=== PATIENT | male | born 1955 | race Caucasian/White ===

== ENCOUNTER 2016-08-03 10:14 | Observation (INO) ==
[2016-08-03] MEDS ORDERED: Aspirin 81 MG TAB.CHEW PO ONE (10:20)
[2016-08-03] MEDS ORDERED: *HR* HYDROmorphone (PF) 1 MG/ML SYRINGE IVP ONE ×2 (10:23→13:36)
[2016-08-03] MEDS ORDERED: Ondansetron 4 MG/2 ML VIAL IVP ONE (10:23)
[2016-08-03] MEDS ORDERED: 0.9 % Sodium Chloride 1,000 ML IVC ONE ×2 (10:25→11:14)
--- NOTE | 2016-08-03 10:35 | Emergency Department Note ---
Disposition Clinical Impression: OLEG (acute kidney injury) Chest pain Qualifiers: Chest pain type: unspecified Qualified Code(s): R07.9 - Chest pain, unspecified Pacemaker malfunction Qualifiers: Encounter type: initial encounter Qualified Code(s): T82.111A - Breakdown ( mechanical) of cardiac pulse generator (battery), initial encounter Disposition: Admitted As Inpatient Condition: Fair Chest Pain HPI - General Chief Complaint: ED Cardiac Arrest/CPR Stated Complaint: CODE Time Seen by Provider: 08/03/16 10:19 Source: patient, EMS Mode of arrival: EMS Limitations: no limitations Vital Signs Reviewed: Yes Nursing Notes Reviewed: Yes - History of Present Illness HPI Narrative: 61-year-old male with a history of coronary artery disease presents via EMS for concerns of chest pain. Note the pain started prior to arrival. Patient was found decreases muscle to his . In route EMS gave the patient nitroglycerin as well as Narcan as he does have an extensive opioid history. Patient did get some reversal with Narcan. Patient's pain is described in the center of his chest and feels like they are intermittent episodes. Possibly shocklike. Patient does have a history of a pacemaker defibrillator. Review of systems otherwise unable to be obtained due to patient's clinical status. Severity scale (1-10): 10 - Related Data Home Medications Medication Instructions Recorded Confirmed Aspirin 243 mg PO DAILY 04/08/15 08/03/16 Levothyroxine [Synthroid] 50 mcg PO QAM 04/08/15 08/03/16 Omeprazole [PriLOSEC] 40 mg PO DAILY 04/08/15 08/03/16 Pravastatin Sodium [Pravachol] 40 mg PO DAILY 04/08/15 08/03/16 Ropinirole HCl [Requip Xl] 4 mg PO HS 04/08/15 08/03/16 Promethazine [Phenergan] 25 mg PO Q6H PRN 12/03/15 08/03/16 Gabapentin [Neurontin] 300 mg PO TID 08/03/16 08/03/16 HYDROcodone/Acet 5/325 mg [Roland 1 tab PO Q6H PRN 08/03/16 08/03/16 5-325 mg] Oxycodone HCl 10 mg PO Q6H PRN 08/03/16 08/03/16 Tizanidine HCl 2 mg PO TID PRN 08/03/16 08/03/16 Allergies Allergy/AdvReac Type Severity Reaction Status Date / Time codeine Allergy Mild Itching Verified 04/08/15 09:52 Penicillins AdvReac Intermediate COMA Verified 04/08/15 09:52 nitroglycerin AdvReac Mild LOW BLOOD Verified 08/02/15 03:33 PRESSURE NITRATES Allergy Mild Itching Uncoded 04/08/15 09:52 NUBAIN Allergy Mild Itching Uncoded 08/02/15 03:33 All systems ED: reviewed and negative except as stated. Constitutional: Reports: as per HPI. Denies: fever Eyes: Reports: as per HPI ENT ED: Reports: as per HPI Cardiovascular: Reports: as per HPI, chest pain. Denies: palpitations Respiratory: Reports: as per HPI. Denies: dyspnea Gastrointestinal: Reports: as per HPI Genitourinary: Reports: as per HPI Musculoskeletal: Reports: as per HPI Integumentary: Reports: as per HPI Neurological: Reports: as per HPI Psychiatric: Reports: as per HPI Endocrine: Reports: as per HPI Hematological/Lymphatic: Reports: as per HPI Allergic/Immunologic: Reports: as per HPI Chest Pain PMH - Past Medical History Medical history: Reports: cirrhosis, CHF, coronary artery disease, CVA, diabetes , GERD, hypertension, myocardial infarction, thyroid disease, other Surgical history: Reports: appendectomy, cholecystectomy, coronary bypass (CABG) , orthopedic, other, pacemaker/AICD Psychiatric history: Reports: no psych history - Social History Smoking Status: Never smoker Alcohol use: Reports: none Drug use: Reports: none Physical Exam - General Limitations: no limitations General appearance: alert, in distress - Head Head exam: normocephalic, normal inspection - Eye Eye exam: Present: normal appearance, EOMI - ENT ENT exam: normal exam, mucous membranes moist - Neck Neck exam: Present: normal inspection, full ROM - Chest Chest inspection: Present: normal inspection, symmetric chest wall rise, other ( Probable pacemaker defibrillator.) - Respiratory Respiratory exam: Present: normal lung sounds bilaterally. Absent: respiratory distress - Cardiovascular Cardiovascular exam: Present: regular rate, normal rhythm. Absent: systolic murmur - Abdominal Exam Abdominal exam: Present: soft, Non-Tender - Extremities Exam Extremities exam: Present: normal inspection. Absent: pedal edema - Back Exam Back exam: Present: normal inspection. Absent: CVA tenderness (R), CVA tenderness (L) - Neurological Exam Neurological exam: Present: alert, oriented X3 - Skin Skin exam: Present: warm, dry, intact, normal color Course Course Narrative: Patient seen and examined upon arrival. Initial concerns for ejection. Portable chest x-ray shows no wide mediastinum. Does reveal a pacemaker defibrillator. Symptoms possibly the result of constant fibrillation. Magnet placed over the chest shows that the patient is in V. tach. Patient blood pressure is stable with a pulse. Patient's given aspirin as well as amiodarone. Paged interventional cardiology. Review of EMS strips do not show specific episodes of V. tach. His does show a paced rhythm at [address] elevation. 12-lead EKG obtained in the emergency department shows a paced rhythm with numerous artifacts. Will repeat EKG. - Reevaluation(s) Reevaluation #1: Cardiology now bedside. When the grain combiner placed the magnet over the pacemaker shows that it was perhaps ventricular pacing. Patient is feeling pain when the magnet is over the pacemaker. Recommends to get the pacemaker interrogated. Time: 12:11 - Consultations Consultation #1: Spoke with Dr. Moseley, recommended anticoagulation. EKG was sent to the padder cushion. Time: 10:58 Consultation #2: Spoke with Cardiology, who recommends that they will get the pacemaker interrogated and started on amiodarone Time: 11:03 Consultation #3: Patient's pacemaker was interrogated in the emergency department shows no acute abnormalities. The records will be sent to the grain combiner as well as accompanying the patient to the floor. Time: 15:32 Vital Signs Temperature 98.0 F 08/03/16 10:15 Pulse Rate 78 08/03/16 10:15 Respiratory Rate 20 08/03/16 10:15 Blood Pressure 106/95 08/03/16 10:15 O2 Sat by Pulse Oximetry 100 08/03/16 10:15 Temperature 98.0 F 08/03/16 10:15 Pulse Rate 50 08/03/16 14:02 Respiratory Rate 18 08/03/16 14:02 Blood Pressure 133/65 08/03/16 14:02 O2 Sat by Pulse Oximetry 100 08/03/16 14:02 Oxygen Delivery Oxygen Delivery Room Air Chest Pain - MDM Narrative Medical decision making narrative: 61-year-old male with known CAD presents for evaluation of chest pain altered mental status. Patient was found decreased responsiveness. Patient was given Narcan with reversal the EMS and is complaining of chest pain. Patient's pain appeared to be shocklike in distribution. Patient had an initial chest x-ray which appeared to have defibrillator coil in the working diagnosis the patient was getting shocked. Magnet was placed over the pacemaker and thought to be in ventricular tach. Patient was given amiodarone bolus as well as heparin with anticoagulation. Spoke with interventional cardiology suspected at the pacemaker was being ventricularly paced recommended cardiology evaluation. Cardiology bedside confirmed the rhythm was ventricular paced but states that the patient will need his ventricular interrogated the patient's pain when magnet is placed over the pacemaker. Patient's troponin was 0.02. Patient did have an elevated d-dimer and was high risk for PE given his current chest pain episode patient was given IV fluid hydration bolus prior to CTA. Risk versus benefit from contrast in kidney function given the patient's current situation was evaluated. [place] the patient was too high risk does not get a CTA scan. She will be admitted to the hospitalist service for further evaluation. - Lab Data Lab results reviewed: Yes I reviewed the patient's lab results. Result diagrams: 08/03/16 10:33 08/03/16 10:33 Lab Results 08/03/16 08/03/16 08/03/16 Range/Units 10:33 10:33 10:33 WBC 7.4 (4.3-11.1) K/mcL RBC 3.53 L (4.19-5.50) M/mcL Hgb 10.1 L (12.9-16.9) g/dL Hct 32.6 L (37.5-50.1) % MCV 92.4 (83.0-100.0) fL MCH 28.6 (28.0-33.3) pg MCHC 31.0 L (31.6-35.5) g/dL RDW 15.7 H (11.5-14.5) % Plt Count 170 (140-400) K/mcL MPV 10.5 (9.4-12.4) fL Immature Gran % 0.3 (0-4) % Seg Neutrophils % 75.9 % Lymphocytes % 16.3 % Monocytes % 6.2 % Eosinophils % 1.2 % Basophils % 0.1 % Neutrophils # 5.7 (1.6-8.9) K/mcL Lymphocytes # 1.2 (0.6-4.6) K/mcL Monocytes # 0.5 (0.0-1.3) K/mcL Eosinophils # 0.1 (0.0-0.6) K/mcL Basophils # 0.0 (0.0-0.2) K/mcL PT 12.9 H (9.4-12.1) Seconds INR 1.2 APTT 27.8 (26.0-36.0) Seconds D-Dimer 19628 H (0-500) ng/mLFEU Sodium (136-145) mEq/L Potassium (3.5-4.5) mEq/L Chloride (98-109) mEq/L Carbon Dioxide (19-29) mEq/L BUN (8-26) mg/dL Creatinine (0.72-1.25) mg/dL Est GFR ( Amer) (> 60) Est GFR (Non-Af Amer) (> 60) BUN/Creatinine Ratio (6-26) Glucose (70-99) mg/dL Calculated Osmolality (280-300) Calcium (8.6-10.8) mg/dL Troponin I (0-0.03) ng/mL B-Natriuretic Peptide 28 (0-100) pg/mL Blood Type Antibody Screen 08/03/16 08/03/16 08/03/16 Range/Units 10:33 10:33 10:33 WBC (4.3-11.1) K/mcL RBC (4.19-5.50) M/mcL Hgb (12.9-16.9) g/dL Hct (37.5-50.1) % MCV (83.0-100.0) fL MCH (28.0-33.3) pg MCHC (31.6-35.5) g/dL RDW (11.5-14.5) % Plt Count (140-400) K/mcL MPV (9.4-12.4) fL Immature Gran % (0-4) % Seg Neutrophils % % Lymphocytes % % Monocytes % % Eosinophils % % Basophils % % Neutrophils # (1.6-8.9) K/mcL Lymphocytes # (0.6-4.6) K/mcL Monocytes # (0.0-1.3) K/mcL Eosinophils # (0.0-0.6) K/mcL Basophils # (0.0-0.2) K/mcL PT (9.4-12.1) Seconds INR APTT (26.0-36.0) Seconds D-Dimer (0-500) ng/mLFEU Sodium 139 (136-145) mEq/L Potassium 4.0 (3.5-4.5) mEq/L Chloride 107 (98-109) mEq/L Carbon Dioxide 23 (19-29) mEq/L BUN 24 (8-26) mg/dL Creatinine 1.70 H (0.72-1.25) mg/dL Est GFR ( Amer) 50 L (> 60) Est GFR (Non-Af Amer) 41 L (> 60) BUN/Creatinine Ratio 14 (6-26) Glucose 178 H (70-99) mg/dL Calculated Osmolality 296 (280-300) Calcium 9.1 (8.6-10.8) mg/dL Troponin I 0.02 (0-0.03) ng/mL B-Natriuretic Peptide (0-100) pg/mL Blood Type O POSITIVE Antibody Screen POSITIVE - Radiology Data Radiology results reviewed: Yes I reviewed the patient's radiology results. - EKG Data EKG attestation: Yes I reviewed and interpreted this EKG. EKG results narrative: Atrial pacemaker at a rate of 55. Right bundle branch block with deep inverted T waves in V1 V2 V3. T-wave inversions in V1 and aVL. Slightly similar to an EKG obtained in June 2016 however new T-wave inversions in the lateral leads. Critical Care Time Critical Care Time: Yes Total Critical Care Time: 60 Attestation: Critical care time for this patient was 60 minutes for treatment and evaluation of his V. tach and firing pacemaker. S.B.A.Akilah - S.B.A.RGorge Situation: Demographics Background: Presenting Complaint, Relevant PMH, Meds, & Allergies Assessment: Vital Signs, Course and respsone to treatment, Patient/Family Expectation, Pertinant Lab Results Recommendation: Barrier(s) to disposition, Recommendation based on pending studies, treatments, or consults S.B.AAdonis Report Given to: Dr. Jose Donato Repor Time: 13:24 Attestation Statement - Attestation Attestation: Patient was seen with resident physician. I reviewed the history, physical, assessment and plan, and agree with the findings. I also personally evaluated this patient and had [id number] time with this patient. 61-year-old male presents to the emergency department after his called EMS because he was unresponsive. EMS arrived said that he was minimally responsive when they got there, and were concerned that he was having some runs of V. tach per their EKG. At one point he became unresponsive they are getting ready to defibrillate him, but then he returned to consciousness. Patient himself says he is having severe sharp chest pain seemingly on the left side of his chest. He is a very poor historian and in significant discomfort which further makes it difficult to ascertain a history. Patient does have a history of cardiac disease and stroke and he has at least a pacemaker, but the family is not sure if it is a defibrillator as well. On examination patient appears uncomfortable his heart is regular rhythm and rate his lungs are clear abdomen is soft and nontender with no pulsatile masses extremities are unremarkable with distal pulses that are intact. Based on the sharp almost continuous sensations he was getting that seemed to cause muscle twitching we thought he may have had a firing defibrillator. We did consider dissection, but when placing a magnet over defibrillator it seemed that the patient went into a wide complex tachycardia, that would be consistent with V. tach. His EKG otherwise did not show acute STEMI. We discussed with both interventional cardiology and cardiology, they advised use of amiodarone aspirin, heparin, and pacemaker interrogation. Once these are all completely patient will have a disposition. Additionally we will continue to work on patient's pain control. Patient will be admitted to the hospital for further evaluation and treatment upon completion of workup. Agree with resident physician assessment and plan.
[2016-08-03] MEDS ORDERED: Amiodarone 300 MG in D5% in Water 100 ML IVPB ONE (10:36)
[2016-08-03 10:42] LABS: Basophils % 0.1 %; Eosinophils # 0.1 K/mcL (0.0-0.6); Eosinophils % 1.2 %; Hematocrit 32.6 % (37.5-50.1); Hemoglobin 10.1 g/dL (12.9-16.9); Immature Granulocytes % 0.3 % (0-4); Lymphocytes # 1.2 K/mcL (0.6-4.6); Lymphocytes % 16.3 %; Mean Corpuscular Hemoglobin 28.6 pg (28.0-33.3); Mean Corpuscular Volume 92.4 fL (83.0-100.0); Mean Platelet Volume 10.5 fL (9.4-12.4); Monocytes # 0.5 K/mcL (0.0-1.3); Monocytes % 6.2 %; Neutrophils # 5.7 K/mcL (1.6-8.9); Platelet Count 170 K/mcL (140-400); Red Blood Count 3.53 M/mcL (4.19-5.50); Red Cell Distribution Width 15.7 % (11.5-14.5); Segmented Neutrophils % 75.9 %
[2016-08-03 10:49] LABS: INR 1.2; Prothrombin Time 12.9 Seconds (9.4-12.1)
[2016-08-03 10:51] LABS: Activated Partial Thrombo Time 27.8 Seconds (26.0-36.0)
[2016-08-03 10:55] LABS: Calcium 9.1 mg/dL (8.6-10.8)
[2016-08-03] MEDS ORDERED: *HR* Heparin 5,000 UNIT/ML VIAL IVP ONE (10:57)
[2016-08-03] MEDS: Heparin 25,000 UNIT/500 ML D5W 25,000 UNIT/500 ML MLS IVC SCH (11:09)
--- NOTE | 2016-08-03 12:58 | Cardiology Consult Note ---
Date of Encounter: 08/03/16 Time of Encounter: 12:51 Assessment and Plan (1) Chest pain Current Visit: Yes Status: Acute ? PPM malfunction - RV lead microfracture. Demonstrated reproducible of possible pocket stimulation while at bedside. no sxs with RA pacing alone [facility] has been contacted for device check today. No obvious fracture on CXR Serial enzymes and usual R/O PA type care CT of the chest is reassuring. Qualifiers: Chest pain type: unspecified Qualified Code(s): R07.9 - Chest pain, unspecified (2) Acute renal injury Current Visit: No Status: Acute Suspect volume depletion related to poor PO intake for hte past few days. This is probably source of syncope this morning. Fluids encouraged. Trend renal function (3) CAD (coronary artery disease) of bypass graft Current Visit: No Status: Chronic Chest pain work up as above. Seems to have chronic sxs. Stress test < 1 year ago negative for ischemia. Unless signifiacnt increase in Troponin - no additional procedures planned. Qualifiers: [place] vs. transplanted heart: [place] heart Associated angina: with unspecified angina Qualified Code(s): I25.709 - Atherosclerosis of coronary artery bypass graft(s), unspecified, with unspecified angina pectoris (4) Hypertension Current Visit: No Status: Chronic Briefly hypotensive earlier today improved when I was at bedside. - ? volume depletion. Qualifiers: Hypertension type: essential hypertension Qualified Code(s): I10 - Essential (primary) hypertension Discussion w patient/family: The assessment and plan as outlined above was discussed with the patient and/or family members who expressed understanding and agreement. All questions were answered. Thank you for involving us in the care of your patient. Please call with any questions. History of Present Illness Consult date: 08/03/16 Consult reason: chest pain, ? PPM malfunction Chief complaint: syncope, chest pain History of present illness: Mr. Grewal is a 61 year old male known CAD, s/p CABG, s/p [facility] Dual Chamber PPM, presents to the ER from home. Reports recent development of an anterior left upper chest pain, sharp, shocking type pain, occurring intermittently for at least a few days. Reports that he is having a similar pain in his leg - where he has recent surgery. He is uncertain if this is similar to his previous CV pain - he thinks it might be. He did have an episode of syncope - while eating breakfast this morning. Reportedly became unconscious at the table -without clear warning - which prompted his ER trip this morning. Other than chronic pain ,a nd missing a few doses of his pain meds, family has noticed decreased appetite and overall poor PO intake in the past several days. In the ER - ?? possible PPM malfunciton prompted urgent consultation. ? VT while magnet in place by the ER staff. _ NO strips. I repeated this manuever - which showed proper AV pacing - however - within 5 beats , the patient mentioned sharp, electrical shooting pain in his left upper chest - identical to what he mentioned at arrival. Sxs resolved immediately with removal of the magnet. Past Med Surg Social Fam HX - Past Medical History Source: patient, old records reviewed, obtained from family Medical history: cirrhosis, CHF, coronary artery disease, CVA, diabetes, GERD, hypertension, myocardial infarction, thyroid disease, other Psychiatric history: no psych history - Past Surgical History Surgical History: appendectomy, cholecystectomy, coronary bypass (CABG), orthopedic, other, pacemaker/AICD - Social History Smoking Status: Never smoker Smokeless Tobacco Status: No Alcohol use: none Drug use: none - Family History Mother Hx Family Cardiac Disorders: Yes (heart problems) Medications and Allergies Aspirin 162 mg PO DAILY 04/08/15 [History] Levothyroxine [Synthroid] 50 mcg PO QAM 04/08/15 [History] Magnesium Oxide [Magnesium] 400 mg PO DAILY 04/08/15 [History] Omeprazole [PriLOSEC] 40 mg PO DAILY 04/08/15 [History] Oxycodone HCl [Roxicodone 30 MG Immed Release] 30 mg PO Q6HR 04/08/15 [History] Pravastatin Sodium [Pravachol] 40 mg PO DAILY 04/08/15 [History] Ropinirole HCl [Requip Xl] 4 mg PO HS 04/08/15 [History] Fluticasone Propionate Nasal [Flonase] 50 mcg NS BID 12/03/15 [History] Promethazine [Phenergan] 25 mg PO Q6H PRN 12/03/15 [History] Allergies codeine Allergy (Mild, Verified 04/08/15 09:52) Itching Penicillins Adverse Reaction (Intermediate, Verified 04/08/15 09:52) COMA nitroglycerin Adverse Reaction (Mild, Verified 08/02/15 03:33) LOW BLOOD PRESSURE pt states his blood pressure drops to fast and nitro makes him pass out. NITRATES Allergy (Mild, Uncoded 04/08/15 09:52) Itching NUBAIN Allergy (Mild, Uncoded 08/02/15 03:33) Itching pt states he had a bad instant reaction. All Systems Review: A 10-system review of systems was performed and is negative for pertinent findings except as documented above in the HPI. Review of Systems: As detailed below - unless indicated all other reviews were negative - Constitutional Constitutional: fatigue, no fever(s), no frequent falls - EENT Nose, mouth and throat: no throat swelling - Cardiovascular Cardiovascular: chest pain at rest, syncope, no radiating jaw, neck or arm pain - Respiratory Respiratory: no dyspnea, no wheezing - Gastrointestinal Gastrointestinal: other (Poor PO intake), no abdominal pain - Genitourinary Genitourinary: no dysuria, no hematuria - Integumentary Integumentary: no erythema, no rash - Neurological Neurological: dizziness, syncope Physical Examination Vital Signs, Last 4 Hours Temp Pulse Resp BP Pulse Ox 08/03/16 12:31 50 18 96/62 99 08/03/16 11:52 49 18 91/67 99 08/03/16 11:38 49 18 92/48 99 08/03/16 10:40 62 20 112/89 98 08/03/16 10:25 100 08/03/16 10:15 98.0 F 78 20 106/95 100 General: Conversant HEENT: Atraumatic, Normocephaly Neck: No JVD Cardiac: Reg Rate and Rhythm, Normal S1 and S2, Other (Pacemaker site in left upper chest - WNL - no tenderness of sensations with palpation) Lungs: Normal Breath Sounds, No Wheeze, Rales, Rhonchi Neuro: Alert and responsive, No focal deficits noted Abdomen: Soft, Non-Tender Skin: No rashes noted on visualized skin Musculoskeletal: No Chest Wall Tenderness Extremities: No Clubbing, No Edema Results 08/03/16 10:33 08/03/16 10:33 Lab Results 08/03/16 08/03/16 08/03/16 10:33 10:33 10:33 WBC 7.4 Hgb 10.1 L Hct 32.6 L Plt Count 170 INR 1.2 APTT 27.8 D-Dimer 01177 H Sodium Potassium Chloride Carbon Dioxide BUN Creatinine Glucose Calcium Troponin I B-Natriuretic Peptide 28 08/03/16 08/03/16 10:33 10:33 WBC Hgb Hct Plt Count INR APTT D-Dimer Sodium 139 Potassium 4.0 Chloride 107 Carbon Dioxide 23 BUN 24 Creatinine 1.70 H Glucose 178 H Calcium 9.1 Troponin I 0.02 B-Natriuretic Peptide - Imaging and Cardiology Chest Xray: image reviewed - EKG Interpretation EKG results cardiology: personally reviewed (A - paced - RBBB -Non-specific changes.) Consult Discharge Plan - Plan Referrals: NO,PCP [Non-Partnered Physician] -
[2016-08-03] MEDS ORDERED: Naloxone 0.4 MG/ML INJ IVP PRN (15:08)
[2016-08-03] MEDS ORDERED: Acetaminophen 325 MG TABLET PO PRN (15:08)
--- NOTE | 2016-08-03 15:10 | Internal Med History&Physical ---
Date of Encounter: 08/03/16 Time of Encounter: 15:08 Assessment and Plan (1) Syncope Current visit: Yes Status: Acute Qualifiers: Syncope type: unspecified Qualified Code(s): R55 - Syncope and collapse (2) OLEG (acute kidney injury) Current visit: Yes Status: Acute (3) Chest pain Current visit: Yes Status: Acute Qualifiers: Chest pain type: unspecified Qualified Code(s): R07.9 - Chest pain, unspecified (4) Pacemaker malfunction Current visit: Yes Status: Acute Qualifiers: Encounter type: initial encounter Qualified Code(s): T82.111A - Breakdown ( mechanical) of cardiac pulse generator (battery), initial encounter (5) CAD (coronary artery disease) of bypass graft Current visit: Yes Status: Chronic Qualifiers: [place] vs. transplanted heart: [place] heart Associated angina: with unspecified angina Qualified Code(s): I25.709 - Atherosclerosis of coronary artery bypass graft(s), unspecified, with unspecified angina pectoris (6) Cirrhosis Current visit: Yes Status: Chronic Qualifiers: Hepatic cirrhosis type: unspecified hepatic cirrhosis Ascites presence: without ascites Qualified Code(s): K74.60 - Unspecified cirrhosis of liver (7) Diabetes mellitus Current visit: Yes Status: Chronic Qualifiers: Diabetes mellitus type: type 2 Diabetes mellitus complication status: without complication Diabetes mellitus buttermaker continuous churn insulin use: unspecified buttermaker continuous churn insulin use status Qualified Code(s): E11.9 - Type 2 diabetes mellitus without complications (8) Hyperlipemia Current visit: Yes Status: Chronic Qualifiers: Hyperlipidemia type: unspecified Qualified Code(s): E78.5 - Hyperlipidemia , unspecified (9) Hypertension Current visit: Yes Status: Chronic Qualifiers: Hypertension type: essential hypertension Qualified Code(s): I10 - Essential (primary) hypertension (10) Hypothyroid Current visit: Yes Status: Chronic Qualifiers: Hypothyroidism type: unspecified Qualified Code(s): E03.9 - Hypothyroidism , unspecified Internal Medicine - H&P: HPI Chief complaint: Syncope Admitted From: Home Plans for Post Hospital Care: Home History of present illness: Mr. Grewal is a 61 year old male Seen at bedside with and daughter at the bedside Hx obtained from all parties and corrolated with EMR Patient was in his usual state of health till this morning when he syncopized at the table during breakfast, per his , he passed out completely, no head injury, he became unresponsive and she called EMS Per EMS chart, patient was found unresponsive and bradycardic, FS was >40 and HR was 49, BP was WNL. Patient said to have woken up and started complaining of severe chest pain . He denies nausea, vomiting, diaphoresis or shortness of breath. His and daughter endorse he is basically bed bound since his hip replacement surgery in 06/2016 because he is always complaining of pain he had no physical therapy beacuse his pain was uncontrolled. he has also had poor oral intake since then. He however typically drinks a lot of water He denies change in bowel or urinary habits, denies diarrhea or constipation. No recent falls he has a PMH of Hypothyroidism, HLD, CAD s/p PCM, Liver cirrhosis, GERD In the ER, he was found to have Vtach when a magnet was placed on his PCM, this was not reproducible when cardiology repeated the same procedure. He however reported chest pain at both times He has been started on heparin drip for possible ACS Physical Exam VSS, not in distress, speaks full sentences HEENT: Moist oral mucosa, ASHLEY, not cyanotic, no sclera icterus, conjuctiva is not pale Chest is clear. PCM pocket on chest wall, no tenderness, pacer pad, scar+ Heart: S1, S2, bradycardia Abdomen: Multiple scars, vague RUQ tenderness Extremities: No edema Labs and Imaging has been reviewed Cardiology has seen him, we will follow their recommendations Continue ACS protocol, ASA, Lipitor, BB, Monitor PTT PCM interrogation a.m Keep pacer pad on Resume other home meds He also has OLEG and will get IVF hydration, obtain UA, check mag and Phos, check TSH , continuos cardiac monitoring, Patient is DNR/DNI plan of care discussed with patient and family verbalizes understanding Past Med Surg Social Fam HX - Past Medical History Medical history: cirrhosis, CHF, coronary artery disease, CVA, diabetes, GERD, hypertension, myocardial infarction, thyroid disease, other Psychiatric history: no psych history - Past Surgical History Surgical History: appendectomy, cholecystectomy, coronary bypass (CABG), orthopedic, other, pacemaker/AICD - Social History Smoking Status: Never smoker Smokeless Tobacco Status: No Alcohol use: none Drug use: none - Family History Mother Hx Family Cardiac Disorders: Yes (heart problems) Internal Medicine - H&P: Meds Aspirin 243 mg PO DAILY 04/08/15 [History] Levothyroxine [Synthroid] 50 mcg PO QAM 04/08/15 [History] Omeprazole [PriLOSEC] 40 mg PO DAILY 04/08/15 [History] Pravastatin Sodium [Pravachol] 40 mg PO DAILY 04/08/15 [History] Ropinirole HCl [Requip Xl] 4 mg PO HS 04/08/15 [History] Promethazine [Phenergan] 25 mg PO Q6H PRN 12/03/15 [History] Gabapentin [Neurontin] 300 mg PO TID 08/03/16 [History] HYDROcodone/Acet 5/325 mg [Secretary 5-325 mg] 1 tab PO Q6H PRN 08/03/16 [History] Oxycodone HCl 10 mg PO Q6H PRN 08/03/16 [History] Tizanidine HCl 2 mg PO TID PRN 08/03/16 [History] Allergies codeine Allergy (Mild, Verified 04/08/15 09:52) Itching Penicillins Adverse Reaction (Intermediate, Verified 04/08/15 09:52) COMA nitroglycerin Adverse Reaction (Mild, Verified 08/02/15 03:33) LOW BLOOD PRESSURE pt states his blood pressure drops to fast and nitro makes him pass out. NITRATES Allergy (Mild, Uncoded 04/08/15 09:52) Itching NUBAIN Allergy (Mild, Uncoded 08/02/15 03:33) Itching pt states he had a bad instant reaction. All Systems PM: A 10-system review of systems was performed and is negative for pertinent findings except as documented above in the HPI. - Constitutional Constitutional: as per HPI - EENT Eyes: as per HPI Ears: as per HPI Nose, mouth and throat: as per HPI - Breasts Breasts: as per HPI - Cardiovascular Cardiovascular ROS IM: as per HPI - Respiratory Respiratory: as per HPI - Gastrointestinal Gastrointestinal: as per HPI - Musculoskeletal Musculoskeletal ROS IM: as per HPI - Integumentary Integumentary IM: as per HPI - Neurological Neurological ROS: as per HPI - Endocrine Endocrine IM: as per HPI - Constitutional Vitals: Temp Pulse Resp BP Pulse Ox 98.0 F 50 18 133/65 100 08/03/16 10:15 08/03/16 14:02 08/03/16 14:02 08/03/16 14:02 08/03/16 14:02 Internal Med - H&P Results - Labs CBC & Chem 7: 08/03/16 10:33 08/03/16 10:33
[2016-08-03] MEDS: 0.9 % Sodium Chloride 1,000 ML IVC SCH (15:59)
[2016-08-03 16:24] LABS: Magnesium 1.8 mg/dL (1.6-2.6); Phosphorous 4.8 mg/dL (2.3-4.7)
[2016-08-03] MEDS: *HR* HYDROcodone/Acet 5/325 mg TABLET PO PRN (17:47)
[2016-08-03] MEDS: Ondansetron 4 MG/2 ML VIAL IVP PRN (17:59)
[2016-08-03] MEDS: *HR* HYDROmorphone (PF) 1 MG/ML SYRINGE IVP PRN (20:25)
[2016-08-03] MEDS: Gabapentin 300 MG CAPSULE PO SCH (20:25)
[2016-08-03] MEDS: rOPINIRole 1 MG, rOPINIRole 3 MG PO SCH (20:30)
[2016-08-03] MEDS ORDERED: NON-FORMULARY MEDICATION 1 EACH EACH (Ropinirole Hcl [Requip Xl] 4 MG) PO SCH (21:00)
[2016-08-04] MEDS: *HR* HYDROcodone/Acet 5/325 mg TABLET PO PRN ×5 (00:17→20:24)
[2016-08-04] MEDS: *HR* HYDROmorphone (PF) 1 MG/ML SYRINGE IVP PRN ×5 (00:17→22:04)
[2016-08-04 00:50] LABS: Basophils % 0.2 %; Eosinophils # 0.1 K/mcL (0.0-0.6); Eosinophils % 1.7 %; Hematocrit 26.9 % (37.5-50.1); Immature Granulocytes % 0.4 % (0-4); Lymphocytes # 1.3 K/mcL (0.6-4.6); Lymphocytes % 25.4 %; Mean Corpuscular HGB Conc 30.5 g/dL (31.6-35.5); Mean Corpuscular Hemoglobin 28.7 pg (28.0-33.3); Mean Corpuscular Volume 94.1 fL (83.0-100.0); Mean Platelet Volume 10.8 fL (9.4-12.4); Monocytes # 0.4 K/mcL (0.0-1.3); Monocytes % 7.2 %; Neutrophils # 3.4 K/mcL (1.6-8.9); Platelet Count 106 K/mcL (140-400); Red Blood Count 2.86 M/mcL (4.19-5.50); Red Cell Distribution Width 15.9 % (11.5-14.5); Segmented Neutrophils % 65.1 %
[2016-08-04 01:02] LABS: Calcium 8.2 mg/dL (8.6-10.8); Magnesium 1.7 mg/dL (1.6-2.6); Phosphorous 4.1 mg/dL (2.3-4.7); Potassium 4.6 mEq/L (3.5-4.5)
[2016-08-04 01:08] LABS: Hemoglobin 8.2 g/dL (12.9-16.9)
[2016-08-04 01:39] LABS: Thyroid Stimulating Hormone 3.396 mcIU/mL (0.350-4.840)
[2016-08-04 01:46] LABS: Amphetamine Screen,Urine Negative ng/mL (Cutoff=1000); Barbiturate Screen,Urine Negative ng/mL (Cutoff=200); Benzodiazepines Screen,Urine Negative ng/mL (Cutoff=200); Cannabinoid Screen,Urine Negative ng/mL (Cutoff = 50); Cocaine Screen,Urine Negative ng/mL (Cutoff= 300); Opiate Screen,Urine Positive ng/mL (Cutoff=300); Phencyclidine Screen,Urine Negative ng/mL (Cutoff=25)
[2016-08-04] MEDS: 0.9 % Sodium Chloride 1,000 ML IVC SCH ×2 (04:15→15:42)
[2016-08-04] MEDS: Aspirin 81 MG TAB.CHEW PO SCH (08:29)
[2016-08-04] MEDS: Gabapentin 300 MG CAPSULE PO SCH ×3 (08:29→20:24)
[2016-08-04 08:43] LABS: Bilirubin,Urine Negative (Negative); Blood,Urine Negative (Negative); Clarity,Urine Clear (Clear); Color,Urine Yellow (Yellow); Glucose,Urine (UA) Normal (Normal); Ketones,Urine Negative (Negative); Leukocyte Esterase,Urine Negative (Negative); Nitrite,Urine Negative (Negative); Protein,Urine Negative (Neg-Trace); Specific Gravity,Urine > 1.030 (1.010-1.025); Urobilinogen,Urine Normal (Normal)
--- NOTE | 2016-08-04 10:14 | Internal Med Progress Note ---
Date of Encounter: 08/04/16 Time of Encounter: 09:00 - Assessment and plan (1) Syncope Current Visit: Yes Status: Acute Assessment and plan: possible vaso vagal pacemaker was interrogated and is working fine , will check orthostatics Qualifiers: Syncope type: unspecified Qualified Code(s): R55 - Syncope and collapse (2) D-dimer, elevated Current Visit: Yes Status: Acute Assessment and plan: CTA negative for PEwill do US of lower extremities if negative stop heparin drip (3) Cirrhosis Current Visit: Yes Status: Chronic Assessment and plan: check ammonia level , follow LFTS, due to hepatitis C Qualifiers: Hepatic cirrhosis type: unspecified hepatic cirrhosis Ascites presence: without ascites Qualified Code(s): K74.60 - Unspecified cirrhosis of liver (4) Anemia Current Visit: Yes Status: Chronic Assessment and plan: possible due to Chronic liver disease check stool studies r/o GI bleeding check reticulocyte count and iron studies Qualifiers: Other causes of anemia: other cause, not classified Qualified Code(s): D64.89 - Other specified anemias - Subjective Interval history: pt denies chest pain or SOB - Constitutional Vitals: Temp Pulse Resp BP Pulse Ox 98.2 F 75 16 147/77 98 08/04/16 07:36 08/04/16 07:48 08/04/16 07:36 08/04/16 07:36 08/04/16 07:36 General appearance: Present: A&O X 3 - Respiratory Respiratory exam: Present: decreased breath sounds - Cardiovascular Cardiovascular exam: Present: bradycardia, +S1, +S2 (DAVE 2/6 in RUSB) - GI/Abdominal GI/Abdominal exam: Present: normal bowel sounds, soft - Extremities Exam Extremities exam: Present: warm, radial pulses palpable and symetrical Internal Medicine: Result - Labs CBC & Chem 7: 08/04/16 00:41 08/04/16 00:41 Labs: Short CBC 08/04/16 Range/Units 00:41 WBC 5.3 (4.3-11.1) K/mcL Hgb 8.2 L D (12.9-16.9) g/dL Hct 26.9 L (37.5-50.1) % Plt Count 106 L (140-400) K/mcL Neutrophils # 3.4 (1.6-8.9) K/mcL BMP 08/04/16 00:41 Sodium 137 Potassium 4.6 H Chloride 110 H Carbon Dioxide 20 BUN 28 H Creatinine 1.80 H Glucose 127 H Calcium 8.2 L Cardiac Enzymes 08/03/16 08/03/16 Range/Units 16:05 20:36 Troponin I 0.00 0.00 (0-0.03) ng/mL Urine 08/04/16 Range/Units 01:20 Urine Color Yellow (Yellow) Urine Clarity Clear (Clear) Urine pH 6.0 (5.0-8.0) pH Units Ur Specific [place] > 1.030 H (1.010-1.025) Urine Protein Negative (Neg-Trace) mg/dL Urine Glucose (UA) Normal (Normal) mg/dL - ABG Interpretation ABG results: PT/INR, D-dimer PT 12.9 Seconds (9.4-12.1) H 08/03/16 10:33 D-Dimer 64919 ng/mLFEU (0-500) H 08/03/16 10:33 Consult Discharge Plan - Plan Referrals: Niko Knight MD [Primary Care Provider] -
[2016-08-04 11:39] LABS: % Iron Saturation 12 % (20-55); Iron 37 mcg/dL (65-175); Transferrin 221 mg/dL (174-364)
[2016-08-04 11:47] LABS: Bilirubin,Urine Negative (Negative); Blood,Urine Negative (Negative); Clarity,Urine Clear (Clear); Color,Urine Yellow (Yellow); Glucose,Urine (UA) Normal (Normal); Ketones,Urine Negative (Negative); Leukocyte Esterase,Urine Negative (Negative); Nitrite,Urine Negative (Negative); Protein,Urine Negative (Neg-Trace); Specific Gravity,Urine 1.013 (1.010-1.025); Urobilinogen,Urine Normal (Normal)
--- NOTE | 2016-08-04 12:20 | Cardiology Progress Note ---
Date of Encounter: 08/04/16 Time of Encounter: 12:19 Assessment and Plan (1) Pacemaker malfunction Current Visit: Yes Status: Ruled-out Ruled out. Device interrogation this AM revealed no significant findings that would explain symptoms of syncope or device malfunction. Settings were adjusted by rep. 12 hour tele AVG HR 74 with no significant findings or arrhythmias. No further testing necessary. Cardiology signing off. Reconsult PRN. Follow-up as outpt with Dr. Lizzy Joshi and with outpt device clinic as planned. Qualifiers: Encounter type: initial encounter Qualified Code(s): T82.111A - Breakdown ( mechanical) of cardiac pulse generator (battery), initial encounter (2) Syncope Current Visit: Yes Status: Acute PPM does not show any events or arrhythmias to explain. Stress test 11/2015 negative for ischemia or infarct. Echo 03/2015 EF 60% normal structure and function. Recommend checking orthostatics. Qualifiers: Syncope type: unspecified Qualified Code(s): R55 - Syncope and collapse (3) CAD (coronary artery disease) of bypass graft Current Visit: Yes Status: Chronic Hx of CABG. Continue ASA, Statin. Has not been on BB since PPM insertion. Negative stress test 11/2015. Qualifiers: [place] vs. transplanted heart: [place] heart Associated angina: with unspecified angina Qualified Code(s): I25.709 - Atherosclerosis of coronary artery bypass graft(s), unspecified, with unspecified angina pectoris (4) Chest pain Current Visit: Yes Status: Chronic Longstanding chronic pain issues. Suspect noncardiac in nature. Symptoms atypical. Negative stress test 11/2015. Troponins negative x 3. No further work-up necessary. Qualifiers: Chest pain type: unspecified Qualified Code(s): R07.9 - Chest pain, unspecified (5) Anemia Current Visit: Yes Status: Acute HGB drop from 10.1 yesterday to 8.2 today. Management/work-up per primary team as indicated. Qualifiers: Anemia type: other cause Other causes of anemia: other cause, not classified Qualified Code(s): D64.89 - Other specified anemias Discussion w patient/family: The assessment and plan as outlined above was discussed with the patient and/or family members who expressed understanding and agreement. All questions were answered. Thank you for involving us in the care of your patient. Please call with any questions. I will discuss all the above with Dr. Brasher and make changes as necessary. Subjective Principal diagnosis: Chest thumping Interval history: Device interrogated this AM with no significant findings to explain symptoms. tele reviewed AVG HR 74 with no significant pauses or arrhythmias. HGB drop from 10.1 to 8.2--denies any obvious bleeding. Objective Vital Signs, Last 4 Hours Temp Pulse Resp Pulse Ox 08/04/16 12:13 86 08/04/16 11:51 99.0 F 82 18 98 General: Conversant, No Apparent Distress HEENT: Atraumatic, Normocephaly, Mucus Membranes Moist Neck: No JVD, Normal carotid pulses Cardiac: Reg Rate and Rhythm, Normal S1 and S2, No Murmur Lungs: Normal Breath Sounds, No Wheeze, Rales, Rhonchi Neuro: Alert and responsive, No focal deficits noted Abdomen: Soft, Non-Tender Skin: No rashes noted on visualized skin Musculoskeletal: No Chest Wall Tenderness Extremities: No Clubbing, No Cyanosis, No Edema, Normal Pulses Results 08/04/16 00:41 08/04/16 00:41 Lab Results 08/03/16 08/03/16 08/03/16 15:57 16:05 16:05 WBC RBC Hgb Hct MCV MCH MCHC RDW Plt Count MPV Immature Gran % Seg Neutrophils % Lymphocytes % Monocytes % Eosinophils % Basophils % Neutrophils # Lymphocytes # Monocytes # Eosinophils # Basophils # APTT Sodium Potassium Chloride Carbon Dioxide BUN Creatinine Est GFR ( Amer) Est GFR (Non-Af Amer) BUN/Creatinine Ratio Glucose POC Glucose 129 H Calculated Osmolality Calcium Phosphorus 4.8 H Magnesium 1.8 Iron % Saturation Transferrin Troponin I 0.00 TSH Urine Color Urine Clarity Urine pH Ur Specific [place] Urine Protein Urine Glucose (UA) Urine Ketones Urine Blood Urine Nitrite Urine Bilirubin Urine Urobilinogen Ur Leukocyte Esterase Ur Culture Indicated? Urine Opiates Screen Ur Barbiturates Screen Ur Phencyclidine Scrn Ur Amphetamines Screen U Benzodiazepines Scrn Urine Cocaine Screen U Marijuana (THC) Screen 08/03/16 08/03/16 08/03/16 17:21 19:42 20:36 WBC RBC Hgb Hct MCV MCH MCHC RDW Plt Count MPV Immature Gran % Seg Neutrophils % Lymphocytes % Monocytes % Eosinophils % Basophils % Neutrophils # Lymphocytes # Monocytes # Eosinophils # Basophils # APTT 100.0 H D Sodium Potassium Chloride Carbon Dioxide BUN Creatinine Est GFR ( Amer) Est GFR (Non-Af Amer) BUN/Creatinine Ratio Glucose POC Glucose 133 H Calculated Osmolality Calcium Phosphorus Magnesium Iron % Saturation Transferrin Troponin I 0.00 TSH Urine Color Urine Clarity Urine pH Ur Specific [place] Urine Protein Urine Glucose (UA) Urine Ketones Urine Blood Urine Nitrite Urine Bilirubin Urine Urobilinogen Ur Leukocyte Esterase Ur Culture Indicated? Urine Opiates Screen Ur Barbiturates Screen Ur Phencyclidine Scrn Ur Amphetamines Screen U Benzodiazepines Scrn Urine Cocaine Screen U Marijuana (THC) Screen 08/04/16 08/04/16 08/04/16 00:41 00:41 00:41 WBC 5.3 RBC 2.86 L Hgb 8.2 L D Hct 26.9 L MCV 94.1 MCH 28.7 MCHC 30.5 L RDW 15.9 H Plt Count 106 L MPV 10.8 Immature Gran % 0.4 Seg Neutrophils % 65.1 Lymphocytes % 25.4 Monocytes % 7.2 Eosinophils % 1.7 Basophils % 0.2 Neutrophils # 3.4 Lymphocytes # 1.3 Monocytes # 0.4 Eosinophils # 0.1 Basophils # 0.0 APTT 74.1 H Sodium 137 Potassium 4.6 H Chloride 110 H Carbon Dioxide 20 BUN 28 H Creatinine 1.80 H Est GFR ( Amer) 47 L Est GFR (Non-Af Amer) 38 L BUN/Creatinine Ratio 16 Glucose 127 H POC Glucose Calculated Osmolality 291 Calcium 8.2 L Phosphorus 4.1 Magnesium 1.7 Iron % Saturation Transferrin Troponin I TSH 3.396 Urine Color Urine Clarity Urine pH Ur Specific [place] Urine Protein Urine Glucose (UA) Urine Ketones Urine Blood Urine Nitrite Urine Bilirubin Urine Urobilinogen Ur Leukocyte Esterase Ur Culture Indicated? Urine Opiates Screen Ur Barbiturates Screen Ur Phencyclidine Scrn Ur Amphetamines Screen U Benzodiazepines Scrn Urine Cocaine Screen U Marijuana (THC) Screen 08/04/16 08/04/16 08/04/16 01:20 01:20 05:23 WBC RBC Hgb Hct MCV MCH MCHC RDW Plt Count MPV Immature Gran % Seg Neutrophils % Lymphocytes % Monocytes % Eosinophils % Basophils % Neutrophils # Lymphocytes # Monocytes # Eosinophils # Basophils # APTT 66.0 H Sodium Potassium Chloride Carbon Dioxide BUN Creatinine Est GFR ( Amer) Est GFR (Non-Af Amer) BUN/Creatinine Ratio Glucose POC Glucose Calculated Osmolality Calcium Phosphorus Magnesium Iron % Saturation Transferrin Troponin I TSH Urine Color Yellow Urine Clarity Clear Urine pH 6.0 Ur Specific [place] > 1.030 H Urine Protein Negative Urine Glucose (UA) Normal Urine Ketones Negative Urine Blood Negative Urine Nitrite Negative Urine Bilirubin Negative Urine Urobilinogen Normal Ur Leukocyte Esterase Negative Ur Culture Indicated? Urine Opiates Screen Positive H Ur Barbiturates Screen Negative Ur Phencyclidine Scrn Negative Ur Amphetamines Screen Negative U Benzodiazepines Scrn Negative Urine Cocaine Screen Negative U Marijuana (THC) Screen Negative 08/04/16 08/04/16 08/04/16 07:37 10:59 11:30 WBC RBC Hgb Hct MCV MCH MCHC RDW Plt Count MPV Immature Gran % Seg Neutrophils % Lymphocytes % Monocytes % Eosinophils % Basophils % Neutrophils # Lymphocytes # Monocytes # Eosinophils # Basophils # APTT Sodium Potassium Chloride Carbon Dioxide BUN Creatinine Est GFR ( Amer) Est GFR (Non-Af Amer) BUN/Creatinine Ratio Glucose POC Glucose 146 H Calculated Osmolality Calcium Phosphorus Magnesium Iron 37 L % Saturation 12 L Transferrin 221 Troponin I TSH Urine Color Yellow Urine Clarity Clear Urine pH 6.0 Ur Specific [place] 1.013 Urine Protein Negative Urine Glucose (UA) Normal Urine Ketones Negative Urine Blood Negative Urine Nitrite Negative Urine Bilirubin Negative Urine Urobilinogen Normal Ur Leukocyte Esterase Negative Ur Culture Indicated? NO Urine Opiates Screen Ur Barbiturates Screen Ur Phencyclidine Scrn Ur Amphetamines Screen U Benzodiazepines Scrn Urine Cocaine Screen U Marijuana (THC) Screen 08/04/16 11:51 WBC RBC Hgb Hct MCV MCH MCHC RDW Plt Count MPV Immature Gran % Seg Neutrophils % Lymphocytes % Monocytes % Eosinophils % Basophils % Neutrophils # Lymphocytes # Monocytes # Eosinophils # Basophils # APTT Sodium Potassium Chloride Carbon Dioxide BUN Creatinine Est GFR ( Amer) Est GFR (Non-Af Amer) BUN/Creatinine Ratio Glucose POC Glucose 109 H Calculated Osmolality Calcium Phosphorus Magnesium Iron % Saturation Transferrin Troponin I TSH Urine Color Urine Clarity Urine pH Ur Specific [place] Urine Protein Urine Glucose (UA) Urine Ketones Urine Blood Urine Nitrite Urine Bilirubin Urine Urobilinogen Ur Leukocyte Esterase Ur Culture Indicated? Urine Opiates Screen Ur Barbiturates Screen Ur Phencyclidine Scrn Ur Amphetamines Screen U Benzodiazepines Scrn Urine Cocaine Screen U Marijuana (THC) Screen Short CBC 08/04/16 Range/Units 00:41 WBC 5.3 (4.3-11.1) K/mcL Hgb 8.2 L D (12.9-16.9) g/dL Hct 26.9 L (37.5-50.1) % Plt Count 106 L (140-400) K/mcL Neutrophils # 3.4 (1.6-8.9) K/mcL BMP 08/04/16 Range/Units 00:41 Sodium 137 (136-145) mEq/L Potassium 4.6 H (3.5-4.5) mEq/L Chloride 110 H (98-109) mEq/L Carbon Dioxide 20 (19-29) mEq/L BUN 28 H (8-26) mg/dL Creatinine 1.80 H (0.72-1.25) mg/dL Glucose 127 H (70-99) mg/dL Calcium 8.2 L (8.6-10.8) mg/dL Cardiac Enzymes 08/03/16 08/03/16 Range/Units 20:36 16:05 Troponin I 0.00 0.00 (0-0.03) ng/mL Urine 08/04/16 08/04/16 Range/Units 11:30 01:20 Urine Color Yellow Yellow (Yellow) Urine Clarity Clear Clear (Clear) Urine pH 6.0 6.0 (5.0-8.0) pH Units Ur Specific [place] 1.013 > 1.030 H (1.010-1.025) Urine Protein Negative Negative (Neg-Trace) mg/dL Urine Glucose (UA) Normal Normal (Normal) mg/dL Impressions Chest CTA 08/03/16 11:13 IMPRESSION: No evidence of pulmonary embolism or acute pulmonary abnormality. D/ / Suzi Renteria MD / Suzi Renteria MD Interpreting Provider: Suzi Renteria MD Active Medications Acetaminophen (Tylenol) 650 mg PO Q6HR PRN PRN Reason: Mild Pain (1-3) Stop: 02/02/17 15:09 Acetaminophen/Hydrocodone Bitart ([place] 5-325 Mg) 1 tab PO Q4HR PRN PRN Reason: Moderate Pain (4-6) Stop: 02/02/17 15:09 Last Admin: 08/04/16 09:56 Dose: 1 tab Aspirin (Aspirin) 81 mg PO DAILY [facility] Stop: 02/03/17 09:01 Last Admin: 08/04/16 08:29 Dose: 81 mg Atorvastatin Calcium (Lipitor) 40 mg PO HS [facility] Stop: 02/02/17 21:01 Last Admin: 08/03/16 20:25 Dose: 40 mg Gabapentin (Neurontin) 300 mg PO TID [facility] Stop: 02/02/17 21:01 Last Admin: 08/04/16 08:29 Dose: 300 mg Hydromorphone HCl (Dilaudid) 0.5 mg IVP Q4HR PRN PRN Reason: Severe Pain (7-10) Stop: 02/02/17 15:09 Last Admin: 08/04/16 08:31 Dose: 0.5 mg Heparin Sodium/Dextrose (Heparin 25,000 Unit/500 Ml D5w) 25,000 unit in 500 mls @ 21.772 mls/hr IVC .[id number] [facility]MI; 12 UNIT/KG/HR PRN Reason: Protocol Stop: 02/02/17 11:01 Last Titration: 08/04/16 01:22 Dose: 9.97 unit/kg/hr, 18.1 mls/hr Sodium Chloride (0.9 % Sodium Chloride) 1,000 mls @ 100 mls/hr IVC .Q10H [facility] Stop: 02/03/17 10:01 Levothyroxine Sodium (Synthroid) 50 mcg PO DAILY@0630 [facility] Stop: 02/03/17 06:31 Last Admin: 08/04/16 08:27 Dose: Not Given Naloxone HCl (Narcan) 0.4 mg IVP Q2MIN PRN PRN Reason: Opioid Reversal Stop: 02/02/17 15:09 Ondansetron HCl (Zofran) 4 mg IVP Q8HR PRN PRN Reason: Nausea And Vomiting Stop: 02/02/17 15:09 Last Admin: 08/03/16 17:59 Dose: 4 mg Ropinirole HCl 1 mg/ (Ropinirole HCl 3 mg) 4 mg PO HS [facility] Stop: 02/02/17 21:01 Last Admin: 08/03/16 20:30 Dose: 4 mg - Imaging and Cardiology Stress Test: report reviewed Echo: report reviewed - EKG Interpretation EKG results cardiology: other (12 hour tele AVG HR 74--no significant pauses or arrhythmias.) Consult Discharge Plan - Plan Referrals: Niko Knight MD [Primary Care Provider] -
[2016-08-04 12:47] LABS: Creatinine,Urine 44 mg/dL
[2016-08-04 12:52] LABS: Protein/Creatinine Ratio,Urine < 0.16 mg/mg (0-0.20)
--- NOTE | 2016-08-04 13:11 | Electrocardiograph Report ---
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
[2016-08-04] MEDS: Heparin 25,000 UNIT/500 ML D5W 25,000 UNIT/500 ML MLS IVC SCH (14:14)
[2016-08-04 14:44] LABS: Immature Reticulocyte % 11.8 % (11.0-38.0); Retculocyte # 0.05 M/mcL (0.05-0.10)
[2016-08-04] MEDS: Ondansetron 4 MG/2 ML VIAL IVP PRN (15:48)
[2016-08-04] MEDS: rOPINIRole 1 MG, rOPINIRole 3 MG PO SCH (20:24)
[2016-08-05] MEDS: Ondansetron 4 MG/2 ML VIAL IVP PRN ×2 (00:56→09:16)
[2016-08-05] MEDS: *HR* HYDROcodone/Acet 5/325 mg TABLET PO PRN ×4 (00:56→21:18)
[2016-08-05] MEDS: 0.9 % Sodium Chloride 1,000 ML IVC SCH ×2 (01:00→14:42)
[2016-08-05] MEDS: *HR* HYDROmorphone (PF) 1 MG/ML SYRINGE IVP PRN ×4 (02:07→22:39)
[2016-08-05 05:30] LABS: BUN/Creatinine Ratio 19 (6-26); Blood Urea Nitrogen 20 mg/dL (8-26); Calcium 8.4 mg/dL (8.6-10.8); Carbon Dioxide 20 mEq/L (19-29); Chloride 116 mEq/L (98-109); Glucose 156 mg/dL (70-99); Osmolality,Calculated 298 (280-300); Potassium 5.2 mEq/L (3.5-4.5); Sodium 141 mEq/L (136-145); eGFR For African Americans > 60 (> 60); eGFR For Non-African Americans > 60 (> 60)
[2016-08-05] MEDS: Aspirin 81 MG TAB.CHEW PO SCH (07:30)
[2016-08-05] MEDS: Gabapentin 300 MG CAPSULE PO SCH ×3 (07:30→21:18)
--- NOTE | 2016-08-05 11:14 | ECHO - Doppler Report ---
Echo with Saline Contrast Name: Ar Grewal Date of Study: 08/04/2016 Date: 1955 Ht: 69.0 in Medical Record#: [id number] Age: 61 Wt: 196.0 lb Gender: Male BSA: 2.05 Order #: [id number] Location: [facility] Room #: 2N2 Reading Physician: Anthony Rudd MD, [facility] Laborer Pole Crew: Pia Morales Ordering Physician: Kang Monzon MD Primary Physician: Niko Knight MD Indications: Syncope Impressions: Technically suboptimal due to poor echocardiographic windows. Normal left ventricular size and systolic function, LVEF 55-60%. Not all myocardial segments were well visualized due to poor echo windows. Atypical septal motion consistent with bundle branch block. Right ventricle appears mildly dilated in some views. Normal right ventricular systolic function. A device lead was visualized in the right atrium and right ventricle. Mild tricuspid regurgitation. Mild pulmonary hypertension. Estimated RVSP = 38 mmHg. 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 No evidence of intracardiac shunting with agitated saline contrast. Left Ventricular Wall Motion: Rest Echo Findings All wall segments showed normal motion. Findings: Study Quality * Technically suboptimal due to poor echocardiographic windows. ECG Findings * Sinus rhythm with BBB. Left Ventricle * Normal left ventricular size and systolic function, LVEF 55-60%. Not all myocardial segments were well visualized due to poor echo windows. * Atypical septal motion consistent with bundle branch block. * Normal LV wall thickness. * Indeterminate diastolic function. Right Ventricle * Right ventricle appears mildly dilated in some views. * Normal right ventricular systolic function. Device lead * A device lead was visualized in the right atrium and right ventricle. Left Atrium * Normal left atrial size. Right Atrium * Normal right atrial size. Aorta * Normally sized aortic root. Pericardium * There is no pericardial effusion present. IVC * The IVC was not visualized. Tricuspid Valve * Normal tricuspid valve structure. * No tricuspid stenosis. * Mild tricuspid regurgitation. * Mild pulmonary hypertension. Estimated RVSP = 38 mmHg. Pulmonic Valve * Pulmonic valve is not well visualized. * No pulmonic stenosis. * No pulmonic regurgitation. Aortic Valve * Trileaflet aortic valve. * Mildly sclerotic aortic valve leaflets. * No aortic stenosis. * No aortic regurgitation. Mitral Valve * Normal mitral valve structure. * No mitral stenosis. * Trace mitral regurgitation. 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 * No evidence of intracardiac shunting with agitated saline contrast. History Hypertension Diabetes Hypercholesteremia Family History of CAD History of CAD/PTCA Myocardial Infarction Coronary Artery Bypass Graft Congestive Heart Failure Pacer/ICD Implant 04/09/2015 a Previous Echo was performed. Contrast: Agitated saline 20 ml. Measurements: BP: 147/ 77 2D Normal Values IVSd: 1.00 cm 0.6 - 1.0 cm LVIDd: 4.20 cm 3.7 - 5.6 cm LVPWd: 1.00 cm 0.6 - 1.1 cm LVIDs: 2.80 cm 1.5 - 3.6 cm AO: 3.70 cm < 4.0 cm %FS: 33.30 cm >25 % LA volume: 51 Mitral Valve Peak E:.87 m/sec Peak A:.87 m/sec E/A Ratio:1 Tricuspid Valve TV Regurg Peak Grad: 33.00mmHg TV Regurg Peak [place]: 2.85m/sec Updated by Anthony Rudd MD, [facility] on 08/05/2016 11:08:06 AM electronically signed on 08/05/2016 11:09:20 AM with status of Final Wall Motion [place]: 1=Normal, 2=Hypokinesis, 3=Akinesis, 4=Dyskinesis, 5=Aneurysmal, 6=Hyperkinetic, X=Not Visualized (Blank)=Missing
--- NOTE | 2016-08-05 12:21 | Discharge Summary ---
Date of Encounter: 08/05/16 Time of Encounter: 09:00 - Discharge Diagnosis (1) Syncope Priority: Primary Status: Acute Qualifiers: Syncope type: unspecified Qualified Code(s): R55 - Syncope and collapse (2) OLEG (acute kidney injury) Priority: Secondary Status: Acute (3) Chest pain Priority: Secondary Status: Acute Qualifiers: Chest pain type: unspecified Qualified Code(s): R07.9 - Chest pain, unspecified (4) CAD (coronary artery disease) of bypass graft Priority: Secondary Status: Chronic Qualifiers: [place] vs. transplanted heart: [place] heart Associated angina: with unspecified angina Qualified Code(s): I25.709 - Atherosclerosis of coronary artery bypass graft(s), unspecified, with unspecified angina pectoris (5) Cirrhosis Priority: Secondary Status: Chronic Qualifiers: Hepatic cirrhosis type: unspecified hepatic cirrhosis Ascites presence: without ascites Qualified Code(s): K74.60 - Unspecified cirrhosis of liver (6) Diabetes mellitus Priority: Secondary Status: Chronic Qualifiers: Diabetes mellitus type: type 2 Diabetes mellitus complication status: without complication Diabetes mellitus usp insulin use: unspecified termite control servicer insulin use status Qualified Code(s): E11.9 - Type 2 diabetes mellitus without complications (7) Hyperlipemia Priority: Secondary Status: Chronic Qualifiers: Hyperlipidemia type: other hyperlipidemia Qualified Code(s): E78.4 - Other hyperlipidemia (8) Hypertension Priority: Secondary Status: Chronic Qualifiers: Hypertension type: essential hypertension Qualified Code(s): I10 - Essential (primary) hypertension (9) Hypothyroid Priority: Secondary Status: Chronic Qualifiers: Hypothyroidism type: unspecified Qualified Code(s): E03.9 - Hypothyroidism , unspecified (10) Pacemaker malfunction Priority: Secondary Status: Ruled-out Qualifiers: Encounter type: initial encounter Qualified Code(s): T82.111A - Breakdown ( mechanical) of cardiac pulse generator (battery), initial encounter (11) Anemia Priority: Secondary Status: Chronic Qualifiers: Anemia type: other cause Other causes of anemia: other cause, not classified Qualified Code(s): D64.89 - Other specified anemias - Discharge Medications Home Medications: Aspirin 243 mg PO DAILY 04/08/15 [History] Levothyroxine [Synthroid] 50 mcg PO QAM 04/08/15 [History] Omeprazole [PriLOSEC] 40 mg PO DAILY 04/08/15 [History] Pravastatin Sodium [Pravachol] 40 mg PO DAILY 04/08/15 [History] Ropinirole HCl [Requip Xl] 4 mg PO HS 04/08/15 [History] Promethazine [Phenergan] 25 mg PO Q6H PRN 12/03/15 [History] Gabapentin [Neurontin] 300 mg PO TID 08/03/16 [History] HYDROcodone/Acet 5/325 mg [[place] 5-325 mg] 1 tab PO Q6H PRN 08/03/16 [History] Oxycodone HCl 10 mg PO Q6H PRN 08/03/16 [History] Tizanidine HCl 2 mg PO TID PRN 08/03/16 [History] Allergies/Adverse Reactions: Allergies codeine Allergy (Mild, Verified 04/08/15 09:52) Itching Penicillins Adverse Reaction (Intermediate, Verified 04/08/15 09:52) COMA nitroglycerin Adverse Reaction (Mild, Verified 08/02/15 03:33) LOW BLOOD PRESSURE pt states his blood pressure drops to fast and nitro makes him pass out. NITRATES Allergy (Mild, Uncoded 04/08/15 09:52) Itching NUBAIN Allergy (Mild, Uncoded 08/02/15 03:33) Itching pt states he had a bad instant reaction. Procedures/tests Complete & Pending: Procedures Performed prior 72 hours Category Date Time Status retroperitoneal ultrasound - limited [US Exams 08/04/16 15:30 Completed retroperitoneal limited] [US] Routine EV echocardiogram Routine Y 08/04/16 10:07 Completed Venous Ultrasound [EV venous imaging LE BI] Stat Y 08/04/16 10:03 Completed Date of admission: 08/03/16 14:03 Primary care physician: Niko Knight MD Consults: 08/03/16 16:59 Consult to Software Engineering Manager [CONS] Routine Reason for SW Consult: Family states they have been trying to get HH care arranged for PT at home. 08/04/16 10:07 Consult to Physical Therapy [CONS] Routine Comment: Evaluate, develop and implement POC OT [Consult to Occupational Therapy] [CONS] Routine Comment: Evaluate, develop and implement POC Discharging clinician: Fransisca Brownlee Anticipated date of discharge: 08/05/16 - Patient Status Disposition: Home Health Service Condition: Good Functional capacity at discharge: uses cane/walker Overall status at discharge: patient is progressing back to baseline - Discharge Instructions Instructions: Chest Pain (DC), Diabetes Mellitus Type 2 in Adults (DC), Anemia (GEN) Follow Up With: Niko Knight MD [Primary Care Provider] - 08/12/16 3:00 pm - Diet and Activity Activity: as per physical therapy Diet: diabetic diet, low fat, low cholesterol, low salt diet Hospital course: Mr. Grewal is a 61 year old male with history of permanent pacemaker, coronary artery disease, cirrhosis and anemia was observed in the hospital after presenting with a syncopal episode. There was concern for pacemaker malfunction during initial evaluation in the ER by cardiology. Patient also had acute kidney injury on presentation. He was treated with IV fluids, monitor with telemetry. He did not have any abnormal rhythms on telemetry. His pacemaker was interrogated and there was no abnormalities found. Cardiology recommends no further evaluation at this time. The patient's renal function has improved now. His syncopal episode was most likely due to orthostasis and dehydration. The patient was evaluated by physical therapy and recommended swing bed admission due to his recent hip surgery. However we were only able to arrange home health with physical therapy for the patient. At this time, the patient is stable to be discharged home and will follow up with cardiology after discharge for further management of his pacemaker. - Time Spent with Patient Total time spent providing and/or coordinating discharge services: Greater than 30 minutes (40 min) - Constitutional Vitals: Temp Pulse Resp BP Pulse Ox 99 F 81 16 155/73 95 08/05/16 11:06 08/05/16 11:06 08/05/16 11:06 08/05/16 11:06 08/05/16 11:06 General appearance: Present: cooperative, A&O X 3, pleasant, no acute distress, answers questions appropriately - Respiratory Respiratory exam: Present: CTAB. Absent: accessory muscle use, rales, rhonchi, wheezes - Cardiovascular Cardiovascular exam: Present: RRR, +S1, +S2. Absent: diastolic murmur, gallop, rubs, systolic murmur - GI/Abdominal GI/Abdominal exam: Present: normal bowel sounds, soft, no peritoneal signs. Absent: distended, tenderness - Neurological Exam Neurological exam: Present: CN II-XII intact, oriented X3, no focal deficits. Absent: facial droop, speech deficit - Attending Attestation This document has been at least partially created by [employer] recognition technology by Dr. Brownlee. Errors in grammar, wording or other phrases may exist. If errors are found after the documentation is signed, they will be addressed individually in the addendum section of this document when appropriate.
--- NOTE | 2016-08-05 12:31 | Physician Discharge Referral ---
Home Health/Hosp Referral Info Transfer to: Home Health Provider in Charge Post Discharge: PCP - Diagnosis (1) Syncope Priority: Primary Status: Resolved (2) OLEG (acute kidney injury) Priority: Secondary Status: Resolved (3) Chest pain Priority: Secondary Status: Resolved (4) CAD (coronary artery disease) of bypass graft Priority: Secondary Status: Chronic (5) Cirrhosis Priority: Secondary Status: Chronic (6) Diabetes mellitus Priority: Secondary Status: Chronic (7) Hyperlipemia Priority: Secondary Status: Chronic (8) Hypertension Priority: Secondary Status: Chronic (9) Hypothyroid Priority: Secondary Status: Chronic (10) Pacemaker malfunction Priority: Secondary Status: Ruled-out (11) Anemia Priority: Secondary Status: Chronic - Respiratory Orders Smoking Cessation: Smoking cessation has been advised. For more information, call the [employer] Tobacco Quit Line at 5-650-HQBK-NOW. - Diet/Nutrition Diet/Nutrition Orders: Cardiac, No Concentrated Sweets - Activity Activity Orders: Walker - Services Needed Following services are medically necessary services: Nursing, Physical Therapy - Transfer Medications Prescriptions: Amlodipine [Norvasc] 5 mg PO DAILY #30 tablet Aspirin 81 mg PO DAILY #30 tab.chew Ferrous Sulfate 325 mg PO BIDWM #60 tablet Home Medications: Levothyroxine [Synthroid] 50 mcg PO QAM 04/08/15 [History] Omeprazole [PriLOSEC] 40 mg PO DAILY 04/08/15 [History] Pravastatin Sodium [Pravachol] 40 mg PO DAILY 04/08/15 [History] Ropinirole HCl [Requip Xl] 4 mg PO HS 04/08/15 [History] Promethazine [Phenergan] 25 mg PO Q6H PRN 12/03/15 [History] Gabapentin [Neurontin] 300 mg PO TID 08/03/16 [History] HYDROcodone/Acet 5/325 mg [[place] 5-325 mg] 1 tab PO Q6H PRN 08/03/16 [History] Oxycodone HCl 10 mg PO Q6H PRN 08/03/16 [History] Tizanidine HCl 2 mg PO TID PRN 08/03/16 [History] Aspirin 81 mg PO DAILY #30 tab.chew 08/06/16 [Rx] Ferrous Sulfate 325 mg PO BIDWM #60 tablet 08/06/16 [Rx] Amlodipine [Norvasc] 5 mg PO DAILY #30 tablet 08/07/16 [Rx] Allergies/Adverse Reactions: Allergies codeine Allergy (Mild, Verified 04/08/15 09:52) Itching Penicillins Adverse Reaction (Intermediate, Verified 04/08/15 09:52) COMA nitroglycerin Adverse Reaction (Mild, Verified 08/02/15 03:33) LOW BLOOD PRESSURE pt states his blood pressure drops to fast and nitro makes him pass out. NITRATES Allergy (Mild, Uncoded 04/08/15 09:52) Itching NUBAIN Allergy (Mild, Uncoded 08/02/15 03:33) Itching pt states he had a bad instant reaction. Certification: Further, I certify that my clinical findings support that this patient is homebound (i.e. absences from home require considerable and taxing effort and are for medical reasons or gnosticist services or infrequently or short duration when for other reasons) because: Homebound Reason: Patient requires assistance of a person or device to safely leave home Attestation: My signature below is to certify that this patient is under my care and that I, or nurse practitioner, or a physician's client account assistant working with me, has a face-to -face encounter with this patient.
[2016-08-05 12:48] LABS: Hematocrit 23.6 % (37.5-50.1); Hemoglobin 7.2 g/dL (12.9-16.9)
--- NOTE | 2016-08-05 13:49 | Internal Med Progress Note ---
Date of Encounter: 08/05/16 Time of Encounter: 09:00 - Assessment and plan (1) Syncope Current Visit: Yes Status: Resolved Assessment and plan: Likely orthostatic. Resolved now. Qualifiers: Syncope type: unspecified Qualified Code(s): R55 - Syncope and collapse (2) OLEG (acute kidney injury) Current Visit: Yes Status: Resolved Assessment and plan: This has also resolved with IV hydration. (3) Chest pain Current Visit: Yes Status: Acute Assessment and plan: Improved. Patient has had negative troponins. No further workup needed at this time. Qualifiers: Chest pain type: precordial chest pain Qualified Code(s): R07.2 - Precordial pain (4) CAD (coronary artery disease) of bypass graft Current Visit: Yes Status: Chronic Assessment and plan: On aspirin, statin. Qualifiers: [place] vs. transplanted heart: [place] heart Associated angina: with unspecified angina Qualified Code(s): I25.709 - Atherosclerosis of coronary artery bypass graft(s), unspecified, with unspecified angina pectoris (5) Cirrhosis Current Visit: Yes Status: Chronic Assessment and plan: Supportive care. Patient does not have ascites at this time Qualifiers: Hepatic cirrhosis type: unspecified hepatic cirrhosis Ascites presence: without ascites Qualified Code(s): K74.60 - Unspecified cirrhosis of liver (6) Diabetes mellitus Current Visit: Yes Status: Chronic Assessment and plan: Fairly controlled. Continue current insulin regimen. Diabetic diet. Qualifiers: Diabetes mellitus type: type 2 Diabetes mellitus complication status: without complication Diabetes mellitus senior living insulin use: unspecified ferry terminal agent insulin use status Qualified Code(s): E11.9 - Type 2 diabetes mellitus without complications (7) Hyperlipemia Current Visit: Yes Status: Chronic Assessment and plan: Continue statin. Qualifiers: Hyperlipidemia type: other hyperlipidemia Qualified Code(s): E78.4 - Other hyperlipidemia (8) Hypertension Current Visit: Yes Status: Chronic Qualifiers: Hypertension type: essential hypertension Qualified Code(s): I10 - Essential (primary) hypertension (9) Hypothyroid Current Visit: Yes Status: Chronic Assessment and plan: Continue levothyroxine. Qualifiers: Hypothyroidism type: unspecified Qualified Code(s): E03.9 - Hypothyroidism , unspecified (10) Pacemaker malfunction Current Visit: Yes Status: Ruled-out Qualifiers: Encounter type: initial encounter Qualified Code(s): T82.111A - Breakdown ( mechanical) of cardiac pulse generator (battery), initial encounter (11) Anemia Current Visit: Yes Status: Chronic Assessment and plan: Hemoglobin 7.2 today. Patient does have low iron levels. Concern for acute on chronic and no anemia especially with history of cirrhosis. Will check stool for occult blood. Consult GI to see if the patient needs endoscopy. Monitor H& H. Patient is on oral omeprazole. Will change it to IV Protonix twice daily. Qualifiers: Anemia type: iron deficiency Iron deficiency anemia type: other iron deficiency Qualified Code(s): D50.8 - Other iron deficiency anemias - Subjective Interval history: Chest pain is improving. Denies any dizziness or lightheadedness currently. No palpitations. No nausea or vomiting. Denies any melena. No abdominal pain. - Constitutional Vitals: Temp Pulse Resp BP Pulse Ox 99 F 81 16 155/73 95 08/05/16 11:06 08/05/16 13:09 08/05/16 11:06 08/05/16 11:06 08/05/16 11:06 General appearance: Present: cooperative, mild distress, A&O X 3, pleasant, answers questions appropriately - Respiratory Respiratory exam: Present: prolonged expiratory phase, wheezes. Absent: accessory muscle use, rales, rhonchi - Cardiovascular Cardiovascular exam: Present: RRR, +S1, +S2. Absent: diastolic murmur, gallop, rubs, systolic murmur - GI/Abdominal GI/Abdominal exam: Present: normal bowel sounds, soft, no peritoneal signs. Absent: distended, tenderness - Extremities Exam Extremities exam: Present: warm, radial pulses palpable and symetrical. Absent : calf tenderness, cyanotic, pedal edema - Neurological Exam Neurological exam: Present: CN II-XII intact, oriented X3, no focal deficits. Absent: facial droop, speech deficit - Skin Skin exam: Present: pallor Internal Medicine: Result - Labs CBC & Chem 7: 08/05/16 12:41 08/05/16 04:52 Labs: Short CBC 08/05/16 Range/Units 12:41 Hgb 7.2 L (12.9-16.9) g/dL Hct 23.6 L (37.5-50.1) % BMP 08/05/16 04:52 Sodium 141 Potassium 5.2 H Chloride 116 H Carbon Dioxide 20 BUN 20 Creatinine 1.08 Glucose 156 H Calcium 8.4 L - ABG Interpretation ABG results: PT/INR, D-dimer PT 12.9 Seconds (9.4-12.1) H 08/03/16 10:33 D-Dimer 95423 ng/mLFEU (0-500) H 08/03/16 10:33 - Impressions Impressions Retroperitoneum Ultrasound 08/04/16 15:30 IMPRESSION: Mild cortical thinning of both kidneys. No hydronephrosis. D/ / 08/04/2016 16:28:51 Anum Ureña MD / earnold Interpreting Provider: Anum Ureña MD Consult Discharge Plan - Plan Instructions: Chest Pain (DC), Diabetes Mellitus Type 2 in Adults (DC), Anemia (GEN) Referrals: Niko Knight MD [Primary Care Provider] - 08/12/16 3:00 pm - Attending Attestation This document has been at least partially created by [employer] recognition technology by Dr. Brownlee. Errors in grammar, wording or other phrases may exist. If errors are found after the documentation is signed, they will be addressed individually in the addendum section of this document when appropriate. Medical Decision Making - MDM Narrative Medical decision making narrative: High risk for complications due to acute on chronic anemia - Medical Records Medical records reviewed: Yes I reviewed the patient's medical records. - Lab Data Lab results reviewed: Yes I reviewed the patient's lab results. Result diagrams: 08/05/16 12:41 08/05/16 04:52 Lab Results 08/03/16 08/03/16 08/03/16 Range/Units 15:57 16:05 16:05 WBC (4.3-11.1) K/mcL RBC (4.19-5.50) M/mcL Hgb (12.9-16.9) g/dL Hct (37.5-50.1) % MCV (83.0-100.0) fL MCH (28.0-33.3) pg MCHC (31.6-35.5) g/dL RDW (11.5-14.5) % Plt Count (140-400) K/mcL MPV (9.4-12.4) fL Reticulocyte # (0.05-0.10) M/mcL Immature Gran % (0-4) % Seg Neutrophils % % Lymphocytes % % Monocytes % % Eosinophils % % Basophils % % Neutrophils # (1.6-8.9) K/mcL Lymphocytes # (0.6-4.6) K/mcL Monocytes # (0.0-1.3) K/mcL Eosinophils # (0.0-0.6) K/mcL Basophils # (0.0-0.2) K/mcL Percent Retic (1.6-2.8) % Immature Retic Fraction (11.0-38.0) % Retic Hgb Equivalent (28.61-36.33) pg APTT (26.0-36.0) Seconds Sodium (136-145) mEq/L Potassium (3.5-4.5) mEq/L Chloride (98-109) mEq/L Carbon Dioxide (19-29) mEq/L BUN (8-26) mg/dL Creatinine (0.72-1.25) mg/dL Est GFR ( Amer) (> 60) Est GFR (Non-Af Amer) (> 60) BUN/Creatinine Ratio (6-26) Glucose (70-99) mg/dL POC Glucose 129 H (58-89) Calculated Osmolality (280-300) Calcium (8.6-10.8) mg/dL Phosphorus 4.8 H (2.3-4.7) mg/dL Magnesium 1.8 (1.6-2.6) mg/dL Iron (65-175) mcg/dL % Saturation (20-55) % Transferrin (174-364) mg/dL Ammonia (18-72) mcmol/L Troponin I 0.00 (0-0.03) ng/mL Vitamin B12 (213-816) pg/mL TSH (0.350-4.840) mcIU/mL Urine Color (Yellow) Urine Clarity (Clear) Urine pH (5.0-8.0) pH Units Ur Specific Oxly (1.010-1.025) Urine Protein (Neg-Trace) mg/dL Urine Glucose (UA) (Normal) mg/dL Urine Ketones (Negative) mg/dL Urine Blood (Negative) Urine Nitrite (Negative) Urine Bilirubin (Negative) Urine Urobilinogen (Normal) mg/dL Ur Leukocyte Esterase (Negative) Ur Culture Indicated? (NO) Urine Creatinine mg/dL Protein/Creatinin Ratio (0-0.20) mg/mg Urine Total Protein (1-14) mg/dL Urine Opiates Screen (Tgdtib=773) ng/mL Ur Barbiturates Screen (Yconfq=579) ng/mL Ur Phencyclidine Scrn (Cutoff=25) ng/mL Ur Amphetamines Screen (Hqopgk=6510) ng/mL U Benzodiazepines Scrn (Ykutfq=972) ng/mL Urine Cocaine Screen (Cutoff= 300) ng/mL U Marijuana (THC) Screen (Cutoff = 50) ng/mL 08/03/16 08/03/16 08/03/16 Range/Units 17:21 19:42 20:36 WBC (4.3-11.1) K/mcL RBC (4.19-5.50) M/mcL Hgb (12.9-16.9) g/dL Hct (37.5-50.1) % MCV (83.0-100.0) fL MCH (28.0-33.3) pg MCHC (31.6-35.5) g/dL RDW (11.5-14.5) % Plt Count (140-400) K/mcL MPV (9.4-12.4) fL Reticulocyte # (0.05-0.10) M/mcL Immature Gran % (0-4) % Seg Neutrophils % % Lymphocytes % % Monocytes % % Eosinophils % % Basophils % % Neutrophils # (1.6-8.9) K/mcL Lymphocytes # (0.6-4.6) K/mcL Monocytes # (0.0-1.3) K/mcL Eosinophils # (0.0-0.6) K/mcL Basophils # (0.0-0.2) K/mcL Percent Retic (1.6-2.8) % Immature Retic Fraction (11.0-38.0) % Retic Hgb Equivalent (28.61-36.33) pg APTT 100.0 H D (26.0-36.0) Seconds Sodium (136-145) mEq/L Potassium (3.5-4.5) mEq/L Chloride (98-109) mEq/L Carbon Dioxide (19-29) mEq/L BUN (8-26) mg/dL Creatinine (0.72-1.25) mg/dL Est GFR ( Amer) (> 60) Est GFR (Non-Af Amer) (> 60) BUN/Creatinine Ratio (6-26) Glucose (70-99) mg/dL POC Glucose 133 H (58-89) Calculated Osmolality (280-300) Calcium (8.6-10.8) mg/dL Phosphorus (2.3-4.7) mg/dL Magnesium (1.6-2.6) mg/dL Iron (65-175) mcg/dL % Saturation (20-55) % Transferrin (174-364) mg/dL Ammonia (18-72) mcmol/L Troponin I 0.00 (0-0.03) ng/mL Vitamin B12 (213-816) pg/mL TSH (0.350-4.840) mcIU/mL Urine Color (Yellow) Urine Clarity (Clear) Urine pH (5.0-8.0) pH Units Ur Specific Oxly (1.010-1.025) Urine Protein (Neg-Trace) mg/dL Urine Glucose (UA) (Normal) mg/dL Urine Ketones (Negative) mg/dL Urine Blood (Negative) Urine Nitrite (Negative) Urine Bilirubin (Negative) Urine Urobilinogen (Normal) mg/dL Ur Leukocyte Esterase (Negative) Ur Culture Indicated? (NO) Urine Creatinine mg/dL Protein/Creatinin Ratio (0-0.20) mg/mg Urine Total Protein (1-14) mg/dL Urine Opiates Screen (Pfbtez=319) ng/mL Ur Barbiturates Screen (Ipcovb=292) ng/mL Ur Phencyclidine Scrn (Cutoff=25) ng/mL Ur Amphetamines Screen (Ykhkay=8773) ng/mL U Benzodiazepines Scrn (Afjkbr=202) ng/mL Urine Cocaine Screen (Cutoff= 300) ng/mL U Marijuana (THC) Screen (Cutoff = 50) ng/mL 08/04/16 08/04/16 08/04/16 Range/Units 00:41 00:41 00:41 WBC 5.3 (4.3-11.1) K/mcL RBC 2.86 L (4.19-5.50) M/mcL Hgb 8.2 L D (12.9-16.9) g/dL Hct 26.9 L (37.5-50.1) % MCV 94.1 (83.0-100.0) fL MCH 28.7 (28.0-33.3) pg MCHC 30.5 L (31.6-35.5) g/dL RDW 15.9 H (11.5-14.5) % Plt Count 106 L (140-400) K/mcL MPV 10.8 (9.4-12.4) fL Reticulocyte # (0.05-0.10) M/mcL Immature Gran % 0.4 (0-4) % Seg Neutrophils % 65.1 % Lymphocytes % 25.4 % Monocytes % 7.2 % Eosinophils % 1.7 % Basophils % 0.2 % Neutrophils # 3.4 (1.6-8.9) K/mcL Lymphocytes # 1.3 (0.6-4.6) K/mcL Monocytes # 0.4 (0.0-1.3) K/mcL Eosinophils # 0.1 (0.0-0.6) K/mcL Basophils # 0.0 (0.0-0.2) K/mcL Percent Retic (1.6-2.8) % Immature Retic Fraction (11.0-38.0) % Retic Hgb Equivalent (28.61-36.33) pg APTT 74.1 H (26.0-36.0) Seconds Sodium 137 (136-145) mEq/L Potassium 4.6 H (3.5-4.5) mEq/L Chloride 110 H (98-109) mEq/L Carbon Dioxide 20 (19-29) mEq/L BUN 28 H (8-26) mg/dL Creatinine 1.80 H (0.72-1.25) mg/dL Est GFR ( Amer) 47 L (> 60) Est GFR (Non-Af Amer) 38 L (> 60) BUN/Creatinine Ratio 16 (6-26) Glucose 127 H (70-99) mg/dL POC Glucose (58-89) Calculated Osmolality 291 (280-300) Calcium 8.2 L (8.6-10.8) mg/dL Phosphorus 4.1 (2.3-4.7) mg/dL Magnesium 1.7 (1.6-2.6) mg/dL Iron (65-175) mcg/dL % Saturation (20-55) % Transferrin (174-364) mg/dL Ammonia (18-72) mcmol/L Troponin I (0-0.03) ng/mL Vitamin B12 (213-816) pg/mL TSH 3.396 (0.350-4.840) mcIU/mL Urine Color (Yellow) Urine Clarity (Clear) Urine pH (5.0-8.0) pH Units Ur Specific Oxly (1.010-1.025) Urine Protein (Neg-Trace) mg/dL Urine Glucose (UA) (Normal) mg/dL Urine Ketones (Negative) mg/dL Urine Blood (Negative) Urine Nitrite (Negative) Urine Bilirubin (Negative) Urine Urobilinogen (Normal) mg/dL Ur Leukocyte Esterase (Negative) Ur Culture Indicated? (NO) Urine Creatinine mg/dL Protein/Creatinin Ratio (0-0.20) mg/mg Urine Total Protein (1-14) mg/dL Urine Opiates Screen (Mxmwvw=593) ng/mL Ur Barbiturates Screen (Adjrsw=934) ng/mL Ur Phencyclidine Scrn (Cutoff=25) ng/mL Ur Amphetamines Screen (Dwokxb=1382) ng/mL U Benzodiazepines Scrn (Qjlgyk=340) ng/mL Urine Cocaine Screen (Cutoff= 300) ng/mL U Marijuana (THC) Screen (Cutoff = 50) ng/mL 08/04/16 08/04/16 08/04/16 Range/Units 01:20 01:20 05:23 WBC (4.3-11.1) K/mcL RBC (4.19-5.50) M/mcL Hgb (12.9-16.9) g/dL Hct (37.5-50.1) % MCV (83.0-100.0) fL MCH (28.0-33.3) pg MCHC (31.6-35.5) g/dL RDW (11.5-14.5) % Plt Count (140-400) K/mcL MPV (9.4-12.4) fL Reticulocyte # (0.05-0.10) M/mcL Immature Gran % (0-4) % Seg Neutrophils % % Lymphocytes % % Monocytes % % Eosinophils % % Basophils % % Neutrophils # (1.6-8.9) K/mcL Lymphocytes # (0.6-4.6) K/mcL Monocytes # (0.0-1.3) K/mcL Eosinophils # (0.0-0.6) K/mcL Basophils # (0.0-0.2) K/mcL Percent Retic (1.6-2.8) % Immature Retic Fraction (11.0-38.0) % Retic Hgb Equivalent (28.61-36.33) pg APTT 66.0 H (26.0-36.0) Seconds Sodium (136-145) mEq/L Potassium (3.5-4.5) mEq/L Chloride (98-109) mEq/L Carbon Dioxide (19-29) mEq/L BUN (8-26) mg/dL Creatinine (0.72-1.25) mg/dL Est GFR ( Amer) (> 60) Est GFR (Non-Af Amer) (> 60) BUN/Creatinine Ratio (6-26) Glucose (70-99) mg/dL POC Glucose (58-89) Calculated Osmolality (280-300) Calcium (8.6-10.8) mg/dL Phosphorus (2.3-4.7) mg/dL Magnesium (1.6-2.6) mg/dL Iron (65-175) mcg/dL % Saturation (20-55) % Transferrin (174-364) mg/dL Ammonia (18-72) mcmol/L Troponin I (0-0.03) ng/mL Vitamin B12 (213-816) pg/mL TSH (0.350-4.840) mcIU/mL Urine Color Yellow (Yellow) Urine Clarity Clear (Clear) Urine pH 6.0 (5.0-8.0) pH Units Ur Specific Oxly > 1.030 H (1.010-1.025) Urine Protein Negative (Neg-Trace) mg/dL Urine Glucose (UA) Normal (Normal) mg/dL Urine Ketones Negative (Negative) mg/dL Urine Blood Negative (Negative) Urine Nitrite Negative (Negative) Urine Bilirubin Negative (Negative) Urine Urobilinogen Normal (Normal) mg/dL Ur Leukocyte Esterase Negative (Negative) Ur Culture Indicated? (NO) Urine Creatinine mg/dL Protein/Creatinin Ratio (0-0.20) mg/mg Urine Total Protein (1-14) mg/dL Urine Opiates Screen Positive H (Lopemy=782) ng/mL Ur Barbiturates Screen Negative (Oocigk=609) ng/mL Ur Phencyclidine Scrn Negative (Cutoff=25) ng/mL Ur Amphetamines Screen Negative (Sovkmk=3212) ng/mL U Benzodiazepines Scrn Negative (Wgbwsw=053) ng/mL Urine Cocaine Screen Negative (Cutoff= 300) ng/mL U Marijuana (THC) Screen Negative (Cutoff = 50) ng/mL 08/04/16 08/04/16 08/04/16 Range/Units 07:37 10:59 10:59 WBC (4.3-11.1) K/mcL RBC (4.19-5.50) M/mcL Hgb (12.9-16.9) g/dL Hct (37.5-50.1) % MCV (83.0-100.0) fL MCH (28.0-33.3) pg MCHC (31.6-35.5) g/dL RDW (11.5-14.5) % Plt Count (140-400) K/mcL MPV (9.4-12.4) fL Reticulocyte # (0.05-0.10) M/mcL Immature Gran % (0-4) % Seg Neutrophils % % Lymphocytes % % Monocytes % % Eosinophils % % Basophils % % Neutrophils # (1.6-8.9) K/mcL Lymphocytes # (0.6-4.6) K/mcL Monocytes # (0.0-1.3) K/mcL Eosinophils # (0.0-0.6) K/mcL Basophils # (0.0-0.2) K/mcL Percent Retic (1.6-2.8) % Immature Retic Fraction (11.0-38.0) % Retic Hgb Equivalent (28.61-36.33) pg APTT (26.0-36.0) Seconds Sodium (136-145) mEq/L Potassium (3.5-4.5) mEq/L Chloride (98-109) mEq/L Carbon Dioxide (19-29) mEq/L BUN (8-26) mg/dL Creatinine (0.72-1.25) mg/dL Est GFR ( Amer) (> 60) Est GFR (Non-Af Amer) (> 60) BUN/Creatinine Ratio (6-26) Glucose (70-99) mg/dL POC Glucose 146 H (58-89) Calculated Osmolality (280-300) Calcium (8.6-10.8) mg/dL Phosphorus (2.3-4.7) mg/dL Magnesium (1.6-2.6) mg/dL Iron 37 L (65-175) mcg/dL % Saturation 12 L (20-55) % Transferrin 221 (174-364) mg/dL Ammonia (18-72) mcmol/L Troponin I (0-0.03) ng/mL Vitamin B12 468 (213-816) pg/mL TSH (0.350-4.840) mcIU/mL Urine Color (Yellow) Urine Clarity (Clear) Urine pH (5.0-8.0) pH Units Ur Specific Oxly (1.010-1.025) Urine Protein (Neg-Trace) mg/dL Urine Glucose (UA) (Normal) mg/dL Urine Ketones (Negative) mg/dL Urine Blood (Negative) Urine Nitrite (Negative) Urine Bilirubin (Negative) Urine Urobilinogen (Normal) mg/dL Ur Leukocyte Esterase (Negative) Ur Culture Indicated? (NO) Urine Creatinine mg/dL Protein/Creatinin Ratio (0-0.20) mg/mg Urine Total Protein (1-14) mg/dL Urine Opiates Screen (Zlbllp=290) ng/mL Ur Barbiturates Screen (Jaubxn=662) ng/mL Ur Phencyclidine Scrn (Cutoff=25) ng/mL Ur Amphetamines Screen (Yrsuwt=1908) ng/mL U Benzodiazepines Scrn (Zdrcet=758) ng/mL Urine Cocaine Screen (Cutoff= 300) ng/mL U Marijuana (THC) Screen (Cutoff = 50) ng/mL 08/04/16 08/04/16 08/04/16 Range/Units 11:30 11:30 11:51 WBC (4.3-11.1) K/mcL RBC (4.19-5.50) M/mcL Hgb (12.9-16.9) g/dL Hct (37.5-50.1) % MCV (83.0-100.0) fL MCH (28.0-33.3) pg MCHC (31.6-35.5) g/dL RDW (11.5-14.5) % Plt Count (140-400) K/mcL MPV (9.4-12.4) fL Reticulocyte # (0.05-0.10) M/mcL Immature Gran % (0-4) % Seg Neutrophils % % Lymphocytes % % Monocytes % % Eosinophils % % Basophils % % Neutrophils # (1.6-8.9) K/mcL Lymphocytes # (0.6-4.6) K/mcL Monocytes # (0.0-1.3) K/mcL Eosinophils # (0.0-0.6) K/mcL Basophils # (0.0-0.2) K/mcL Percent Retic (1.6-2.8) % Immature Retic Fraction (11.0-38.0) % Retic Hgb Equivalent (28.61-36.33) pg APTT (26.0-36.0) Seconds Sodium (136-145) mEq/L Potassium (3.5-4.5) mEq/L Chloride (98-109) mEq/L Carbon Dioxide (19-29) mEq/L BUN (8-26) mg/dL Creatinine (0.72-1.25) mg/dL Est GFR ( Amer) (> 60) Est GFR (Non-Af Amer) (> 60) BUN/Creatinine Ratio (6-26) Glucose (70-99) mg/dL POC Glucose 109 H (58-89) Calculated Osmolality (280-300) Calcium (8.6-10.8) mg/dL Phosphorus (2.3-4.7) mg/dL Magnesium (1.6-2.6) mg/dL Iron (65-175) mcg/dL % Saturation (20-55) % Transferrin (174-364) mg/dL Ammonia (18-72) mcmol/L Troponin I (0-0.03) ng/mL Vitamin B12 (213-816) pg/mL TSH (0.350-4.840) mcIU/mL Urine Color Yellow (Yellow) Urine Clarity Clear (Clear) Urine pH 6.0 (5.0-8.0) pH Units Ur Specific Oxly 1.013 (1.010-1.025) Urine Protein Negative (Neg-Trace) mg/dL Urine Glucose (UA) Normal (Normal) mg/dL Urine Ketones Negative (Negative) mg/dL Urine Blood Negative (Negative) Urine Nitrite Negative (Negative) Urine Bilirubin Negative (Negative) Urine Urobilinogen Normal (Normal) mg/dL Ur Leukocyte Esterase Negative (Negative) Ur Culture Indicated? NO (NO) Urine Creatinine 44 mg/dL Protein/Creatinin Ratio < 0.16 (0-0.20) mg/mg Urine Total Protein < 7 (1-14) mg/dL Urine Opiates Screen (Uuccuh=434) ng/mL Ur Barbiturates Screen (Lrudow=801) ng/mL Ur Phencyclidine Scrn (Cutoff=25) ng/mL Ur Amphetamines Screen (Hkkfdg=0376) ng/mL U Benzodiazepines Scrn (Einbrr=601) ng/mL Urine Cocaine Screen (Cutoff= 300) ng/mL U Marijuana (THC) Screen (Cutoff = 50) ng/mL 08/04/16 08/04/16 08/04/16 Range/Units 14:34 14:34 15:28 WBC (4.3-11.1) K/mcL RBC (4.19-5.50) M/mcL Hgb (12.9-16.9) g/dL Hct (37.5-50.1) % MCV (83.0-100.0) fL MCH (28.0-33.3) pg MCHC (31.6-35.5) g/dL RDW (11.5-14.5) % Plt Count (140-400) K/mcL MPV (9.4-12.4) fL Reticulocyte # 0.05 (0.05-0.10) M/mcL Immature Gran % (0-4) % Seg Neutrophils % % Lymphocytes % % Monocytes % % Eosinophils % % Basophils % % Neutrophils # (1.6-8.9) K/mcL Lymphocytes # (0.6-4.6) K/mcL Monocytes # (0.0-1.3) K/mcL Eosinophils # (0.0-0.6) K/mcL Basophils # (0.0-0.2) K/mcL Percent Retic 2.0 (1.6-2.8) % Immature Retic Fraction 11.8 (11.0-38.0) % Retic Hgb Equivalent 30.1 (28.61-36.33) pg APTT (26.0-36.0) Seconds Sodium (136-145) mEq/L Potassium (3.5-4.5) mEq/L Chloride (98-109) mEq/L Carbon Dioxide (19-29) mEq/L BUN (8-26) mg/dL Creatinine (0.72-1.25) mg/dL Est GFR ( Amer) (> 60) Est GFR (Non-Af Amer) (> 60) BUN/Creatinine Ratio (6-26) Glucose (70-99) mg/dL POC Glucose 155 H (58-89) Calculated Osmolality (280-300) Calcium (8.6-10.8) mg/dL Phosphorus (2.3-4.7) mg/dL Magnesium (1.6-2.6) mg/dL Iron (65-175) mcg/dL % Saturation (20-55) % Transferrin (174-364) mg/dL Ammonia 29 (18-72) mcmol/L Troponin I (0-0.03) ng/mL Vitamin B12 (213-816) pg/mL TSH (0.350-4.840) mcIU/mL Urine Color (Yellow) Urine Clarity (Clear) Urine pH (5.0-8.0) pH Units Ur Specific Oxly (1.010-1.025) Urine Protein (Neg-Trace) mg/dL Urine Glucose (UA) (Normal) mg/dL Urine Ketones (Negative) mg/dL Urine Blood (Negative) Urine Nitrite (Negative) Urine Bilirubin (Negative) Urine Urobilinogen (Normal) mg/dL Ur Leukocyte Esterase (Negative) Ur Culture Indicated? (NO) Urine Creatinine mg/dL Protein/Creatinin Ratio (0-0.20) mg/mg Urine Total Protein (1-14) mg/dL Urine Opiates Screen (Ekmban=162) ng/mL Ur Barbiturates Screen (Jfgnui=186) ng/mL Ur Phencyclidine Scrn (Cutoff=25) ng/mL Ur Amphetamines Screen (Aliecq=6807) ng/mL U Benzodiazepines Scrn (Rcirbs=258) ng/mL Urine Cocaine Screen (Cutoff= 300) ng/mL U Marijuana (THC) Screen (Cutoff = 50) ng/mL 08/04/16 08/05/16 08/05/16 Range/Units 20:50 04:52 12:41 WBC (4.3-11.1) K/mcL RBC (4.19-5.50) M/mcL Hgb 7.2 L (12.9-16.9) g/dL Hct 23.6 L (37.5-50.1) % MCV (83.0-100.0) fL MCH (28.0-33.3) pg MCHC (31.6-35.5) g/dL RDW (11.5-14.5) % Plt Count (140-400) K/mcL MPV (9.4-12.4) fL Reticulocyte # (0.05-0.10) M/mcL Immature Gran % (0-4) % Seg Neutrophils % % Lymphocytes % % Monocytes % % Eosinophils % % Basophils % % Neutrophils # (1.6-8.9) K/mcL Lymphocytes # (0.6-4.6) K/mcL Monocytes # (0.0-1.3) K/mcL Eosinophils # (0.0-0.6) K/mcL Basophils # (0.0-0.2) K/mcL Percent Retic (1.6-2.8) % Immature Retic Fraction (11.0-38.0) % Retic Hgb Equivalent (28.61-36.33) pg APTT (26.0-36.0) Seconds Sodium 141 (136-145) mEq/L Potassium 5.2 H (3.5-4.5) mEq/L Chloride 116 H (98-109) mEq/L Carbon Dioxide 20 (19-29) mEq/L BUN 20 (8-26) mg/dL Creatinine 1.08 (0.72-1.25) mg/dL Est GFR ( Amer) > 60 (> 60) Est GFR (Non-Af Amer) > 60 (> 60) BUN/Creatinine Ratio 19 (6-26) Glucose 156 H (70-99) mg/dL POC Glucose 174 H (58-89) Calculated Osmolality 298 (280-300) Calcium 8.4 L (8.6-10.8) mg/dL Phosphorus (2.3-4.7) mg/dL Magnesium (1.6-2.6) mg/dL Iron (65-175) mcg/dL % Saturation (20-55) % Transferrin (174-364) mg/dL Ammonia (18-72) mcmol/L Troponin I (0-0.03) ng/mL Vitamin B12 (213-816) pg/mL TSH (0.350-4.840) mcIU/mL Urine Color (Yellow) Urine Clarity (Clear) Urine pH (5.0-8.0) pH Units Ur Specific Oxly (1.010-1.025) Urine Protein (Neg-Trace) mg/dL Urine Glucose (UA) (Normal) mg/dL Urine Ketones (Negative) mg/dL Urine Blood (Negative) Urine Nitrite (Negative) Urine Bilirubin (Negative) Urine Urobilinogen (Normal) mg/dL Ur Leukocyte Esterase (Negative) Ur Culture Indicated? (NO) Urine Creatinine mg/dL Protein/Creatinin Ratio (0-0.20) mg/mg Urine Total Protein (1-14) mg/dL Urine Opiates Screen (Oiavwx=561) ng/mL Ur Barbiturates Screen (Qptwpw=284) ng/mL Ur Phencyclidine Scrn (Cutoff=25) ng/mL Ur Amphetamines Screen (Wqckgb=5270) ng/mL U Benzodiazepines Scrn (Odpfkg=930) ng/mL Urine Cocaine Screen (Cutoff= 300) ng/mL U Marijuana (THC) Screen (Cutoff = 50) ng/mL
[2016-08-05 13:52] LABS: Albumin 2.9 g/dL (3.5-5.0); Albumin/Globulin Ratio 0.9 (1.1-2.2); Bilirubin,Direct 0.2 mg/dL (0.0-0.5); Bilirubin,Indirect 0.3 mg/dL (0.0-1.2); Bilirubin,Total 0.5 mg/dL (0.2-1.2); Globulin 3.3 g/dL (2.4-3.5); Total Protein 6.2 g/dL (6.0-8.3)
--- NOTE | 2016-08-05 14:36 | Venous Imaging Report ---
LE Venous Duplex Patient Name:Ar Grewal Order Number:[id number] Procedure Date:08/04/2016 Date:4Age:61 yrs Gender:Male Location:[facility] Room #: 2N2 Slasher Operator:Pia Morales Referring MD:Kang Monzon MD railcar carpenter:Niko Knight MD Reading MD:Esteban Nance MD Primary Indications:r/o DVT Secondary Indications: Impressions: Normal bilateral lower extremity deep and superficial venous exam. Recommendations: After imaging the patient returned home. Findings Prior Study: No prior study available for comparison. Lower Extremity Venous Duplex Side Vein Compress Spontaneous Flow Augment Diameter (cm) Depth (cm) Right Distal Iliac Normal Yes Phasic Yes Right Common Femoral Normal Yes Phasic Yes Right Superficial Femoral Normal Yes Phasic Yes Right Popliteal Normal Yes Phasic Yes Right Posterior Tibial Normal Yes Phasic Yes Right Peroneal Normal Yes Phasic Yes Right Saphenofemoral [place] Normal Yes Phasic Yes Right Great Saphenous Normal Yes Phasic Yes Right Lesser Saphenous Normal Yes Phasic Yes Left Distal Iliac Normal Yes Phasic Yes Left Common Femoral Normal Yes Phasic Yes Left Superficial Femoral Normal Yes Phasic Yes Left Popliteal Normal Yes Phasic Yes Left Posterior Tibial Normal Yes Phasic Yes Left Peroneal Normal Yes Phasic Yes Left Saphenofemoral [place] Normal Yes Phasic Yes Left Great Saphenous Normal Yes Phasic Yes Left Lesser Saphenous Normal Yes Phasic Yes Updated by Esteban Nance MD on 08/05/2016 2:29:29 PM electronically signed on 08/05/2016 2:29:46 PM with status of Final
[2016-08-05] MEDS: Pantoprazole 40 MG VIAL IVP SCH (17:46)
[2016-08-05 20:07] LABS: Hematocrit 23.1 % (37.5-50.1); Hemoglobin 7.1 g/dL (12.9-16.9)
[2016-08-05] MEDS: rOPINIRole 1 MG, rOPINIRole 3 MG PO SCH (21:18)
[2016-08-06] MEDS: 0.9 % Sodium Chloride 1,000 ML IVC SCH ×3 (03:05→13:34)
[2016-08-06] MEDS: *HR* HYDROcodone/Acet 5/325 mg TABLET PO PRN ×4 (03:47→20:19)
[2016-08-06 04:32] LABS: Basophils % 0.3 %; Hemoglobin 7.4 g/dL (12.9-16.9)
[2016-08-06 04:34] LABS: Eosinophils # 0.1 K/mcL (0.0-0.6); Eosinophils % 2.1 %; Hematocrit 24.1 % (37.5-50.1); Immature Granulocytes % 0.3 % (0-4); Immature Platelets 3.6 % (1.1-6.1); Lymphocytes % 29.8 %; Mean Corpuscular HGB Conc 30.7 g/dL (31.6-35.5); Mean Corpuscular Hemoglobin 29.1 pg (28.0-33.3); Mean Corpuscular Volume 94.9 fL (83.0-100.0); Mean Platelet Volume 10.8 fL (9.4-12.4); Monocytes # 0.2 K/mcL (0.0-1.3); Monocytes % 6.5 %; Neutrophils # 2.1 K/mcL (1.6-8.9); Red Blood Count 2.54 M/mcL (4.19-5.50); Red Cell Distribution Width 15.5 % (11.5-14.5)
[2016-08-06 04:38] LABS: Platelet Count 94 K/mcL (140-400)
[2016-08-06 04:51] LABS: BUN/Creatinine Ratio 16 (6-26); Blood Urea Nitrogen 16 mg/dL (8-26); Calcium 9.1 mg/dL (8.6-10.8); Carbon Dioxide 23 mEq/L (19-29); Chloride 112 mEq/L (98-109); Glucose 125 mg/dL (70-99); Osmolality,Calculated 297 (280-300); Potassium 4.9 mEq/L (3.5-4.5); Sodium 142 mEq/L (136-145); eGFR For African Americans > 60 (> 60); eGFR For Non-African Americans > 60 (> 60)
[2016-08-06] MEDS: Pantoprazole 40 MG VIAL IVP SCH ×2 (05:25→18:08)
[2016-08-06] MEDS: Ondansetron 4 MG/2 ML VIAL IVP PRN ×2 (05:43→21:37)
[2016-08-06] MEDS ORDERED: *HR* Propofol 200 MG/20 ML VIAL IVP ONE (08:02)
--- NOTE | 2016-08-06 08:12 | Gastroenterology Consult Note ---
<Lanny Aiken - Last Filed: 08/06/16 11:07> Date of Encounter: 08/06/16 Time of Encounter: 10:10 - Assessment and plan (1) Thrombocytopenia Current Visit: Yes Status: Chronic Assessment and plan: Mild - 90-100s. (2) Anemia Current Visit: Yes Status: Chronic Assessment and plan: acute on chronic. Dropped 3 grams. Was on heparin gtt during this admission for possible ACS, that has been d/c. EGD to r/o esophagitis, gastritis, duodenitis, MW tear, AVMs, varices. Qualifiers: Anemia type: iron deficiency Iron deficiency anemia type: other iron deficiency Qualified Code(s): D50.8 - Other iron deficiency anemias (3) Cirrhosis Current Visit: Yes Status: Chronic Assessment and plan: Due for HCC surveillence. US liver negative for liver lesion, afp pending (has not been checked since 2013). MELD/MELD Na 03/28, Agatha-Andino class A, denies etoh abuse or history of same. Qualifiers: Hepatic cirrhosis type: unspecified hepatic cirrhosis Ascites presence: without ascites Qualified Code(s): K74.60 - Unspecified cirrhosis of liver - Time Spent With Patient Total time spent is greater than 50% in coordination of care (as documented) at patient's floor/unit and/or counseling patient: less than 15 minutes GI History of Present Illness - Data of Consult Patient: known to practice within the last 3 years Consult date: 08/06/16 Requesting Physician: Fransisca Brownlee MD - Consult Narrative Reason for consult: Anemia, cirrhosis History of present illness: Mr. Grewal is a 61 year old male with a PMH of hypothyroidism, hyperlipidemia, CAD, PM, cirrhosis, GERD, gastroparesis, chronic pancreatitis. He presented to the ER yesterday due to loss of consciousness and AMS. EMS arrived, patient aroused and complained of severe chest pain. He denied N/V, diaphoresis or SOB. He has been basically bed bound since a hip replacement in 06/2016 due to uncontrollable pain. Initially, he was hospitalized with possible ACS and placed on a heparin gtt. Ultimately, it was determined no [place], his pacer was interrogated and cardio was to have him f/u OTPT. It was noted just prior to d/ c that his hgb had dropped from 10.1 to 7.2 and GI was consulted for acute on chronic anemia, hx of cirrhosis. He was last seen by GI in 2013 at which time he had an EGD with botox with Dr. Phan for gastroparesis that was refractory to conventional therapies. He had a Cscope at that time as well with unremarkable findings and a recommendation to repeat in [address] Phan. Patient denies any GI symptoms. He complains about chronic pain in hips and back without adequate pain control in his opinion. Colonoscopy: 2013 Emilie - unremarkable - repeat 5 years EGD: 2013 Emilie - normal findings, botox therapy Past Med Surg Social Fam HX - Past Medical History Medical history: cirrhosis, CHF, coronary artery disease, CVA, diabetes, GERD, hypertension, myocardial infarction, thyroid disease, other Psychiatric history: no psych history - Past Surgical History Surgical History: appendectomy, cholecystectomy, coronary bypass (CABG), orthopedic, other, pacemaker/AICD - Social History Smoking Status: Never smoker Smokeless Tobacco Status: No Alcohol use: none Drug use: none - Family History Mother History Unknown: Yes Living Status: Hx Family Cardiac Disorders: No - Gastrointestinal NSAID use: None noted Anticoagulation Use: heparin gtt (discontinued) Number of BM Per Day: 1 - Constitutional Constitutional: as per HPI - EENT Eyes: as per HPI Ears: Present: as per HPI Nose, mouth and throat: Present: as per HPI - Cardiovascular Cardiovascular ROS: Present: as per HPI - Respiratory Respiratory IM: Present: as per HPI - Neurological ROS Neurological GI: Present: dizziness, weakness - Hematologic/Lymphatic Hematologic/Lymphatic pediatric: Present: as per HPI - Musculoskeletal Musculoskeletal ROS GI: Present: back pain - Integumentary Integumentary GI: Present: as per HPI - Psychiatric ROS Psychiatric GI: Present: as per HPI - Endocrine Endocrine IM: Present: as per HPI - Constitutional Vitals: Temp Pulse Resp BP Pulse Ox 98.2 F 93 18 129/72 93 L 08/06/16 04:08 08/06/16 04:08 08/06/16 04:08 08/05/16 15:38 08/06/16 04:08 General appearance: Present: cooperative, A&O X 3, no acute distress, answers questions appropriately - Head Head exam: Present: atraumatic, normocephalic - Eye Eye exam: Present: normal appearance, sclera anicteric - ENT ENT exam: Present: mucous membranes moist - Neck Neck exam general surgery: Present: normal inspection, trachea midline - Respiratory Respiratory exam: Present: CTAB - Cardiovascular Cardiovascular exam: Present: RRR, +S1, +S2 - GI/Abdominal GI/Abdominal exam: Present: soft, tenderness, no peritoneal signs - Rectal Rectal exam: Present: deferred - Extremities Exam Extremities exam: Present: warm - Neurological Exam Neurological exam: Present: no focal deficits - Psychiatric Psychiatric exam: Present: normal affect, normal mood - Skin Skin exam: Present: dry, intact, normal color, warm Results - Labs CBC & Chem 7: 08/06/16 04:09 08/06/16 04:09 Labs: Last Result Calcium 9.1 mg/dL (8.6-10.8) 08/06/16 04:09 Iron 37 mcg/dL (65-175) L 08/04/16 10:59 % Saturation 12 % (20-55) L 08/04/16 10:59 Transferrin 221 mg/dL (174-364) 08/04/16 10:59 Troponin I 0.00 ng/mL (0-0.03) 08/03/16 20:36 Vitamin B12 468 pg/mL (213-816) 08/04/16 10:59 Urine Opiates Screen Positive ng/mL (Vveyxz=724) H 08/04/16 01:20 Entire Visit Hgb 7.4 g/dL (12.9-16.9) L 08/06/16 04:09 Hct 24.1 % (37.5-50.1) L 08/06/16 04:09 PT 12.9 Seconds (9.4-12.1) H 08/03/16 10:33 Total Bilirubin 0.5 mg/dL (0.2-1.2) 08/05/16 04:52 AST 15 Units/L (5-34) 08/05/16 04:52 ALT 8 Units/L (0-55) 08/05/16 04:52 Ammonia 29 mcmol/L (18-72) 08/04/16 14:34 - ABG ABG results: PT/INR, D-dimer PT 12.9 Seconds (9.4-12.1) H 08/03/16 10:33 D-Dimer 46300 ng/mLFEU (0-500) H 08/03/16 10:33 - Impressions Impressions Liver Ultrasound 08/05/16 20:00 IMPRESSION: 1. Nodular hepatic contour with heterogeneous echotexture concerning for cirrhosis. D/ / Wesley Vizcaino MD / Wesley Vizcaino MD Interpreting Provider: Wesley Vizcaino MD Consult Discharge Plan - Plan Instructions: Chest Pain (DC), Diabetes Mellitus Type 2 in Adults (DC), Anemia (GEN) Referrals: Niko Knight MD [Primary Care Provider] - 08/12/16 3:00 pm Prescriptions: Aspirin 81 mg PO DAILY #30 tab.chew Ferrous Sulfate 325 mg PO BIDWM #60 tablet <GenarohiraSavanna - Last Filed: 08/06/16 14:51> Date of Encounter: 08/06/16 Time of Encounter: 14:00 - Time Spent With Patient Total time spent is greater than 50% in coordination of care (as documented) at patient's floor/unit and/or counseling patient: GI History of Present Illness - Data of Consult Requesting Physician: Fransisca Brownlee MD - Consult Narrative History of present illness: Mr. Grewal is a 61 year old male - Constitutional Vitals: Temp Pulse Resp BP Pulse Ox 98.3 F 77 20 125/75 96 08/06/16 13:06 08/06/16 14:09 08/06/16 13:06 08/06/16 13:06 08/06/16 13:06 Results - Labs CBC & Chem 7: 08/06/16 04:09 08/06/16 04:09 Labs: Last Result Calcium 9.1 mg/dL (8.6-10.8) 08/06/16 04:09 Iron 37 mcg/dL (65-175) L 08/04/16 10:59 % Saturation 12 % (20-55) L 08/04/16 10:59 Transferrin 221 mg/dL (174-364) 08/04/16 10:59 Troponin I 0.00 ng/mL (0-0.03) 08/03/16 20:36 Vitamin B12 468 pg/mL (213-816) 08/04/16 10:59 Urine Opiates Screen Positive ng/mL (Qkifzk=795) H 08/04/16 01:20 Entire Visit Hgb 7.4 g/dL (12.9-16.9) L 08/06/16 04:09 Hct 24.1 % (37.5-50.1) L 08/06/16 04:09 PT 12.9 Seconds (9.4-12.1) H 08/03/16 10:33 Total Bilirubin 0.5 mg/dL (0.2-1.2) 08/05/16 04:52 AST 15 Units/L (5-34) 08/05/16 04:52 ALT 8 Units/L (0-55) 08/05/16 04:52 Ammonia 29 mcmol/L (18-72) 08/04/16 14:34 - ABG ABG results: PT/INR, D-dimer PT 12.9 Seconds (9.4-12.1) H 08/03/16 10:33 D-Dimer 01157 ng/mLFEU (0-500) H 08/03/16 10:33 - Impressions Impressions Liver Ultrasound 08/05/16 20:00 IMPRESSION: 1. Nodular hepatic contour with heterogeneous echotexture concerning for cirrhosis. D/ / Wesley Vizcaino MD / Wesley Vizcaino MD Interpreting Provider: Wesley Vizcaino MD - Attending Attestation I examined this patient and my medical decision-making was reviewed with the OB/GYN/PA/Advanced Practice Nurse/Resident Physician. I agree with the documented findings, disposition and treatment plan as described except to the extent set forth below. Patient with cirrhosis and anemia with drop in his hemoglobin and blood in the stool. EGD to rule out upper GI causes for his anemia and if negative then colonoscopy
[2016-08-06] MEDS: Aspirin 81 MG TAB.CHEW PO SCH (08:44)
[2016-08-06] MEDS: Gabapentin 300 MG CAPSULE PO SCH ×3 (08:44→20:20)
--- NOTE | 2016-08-06 12:02 | Anesthesia Evaluation PreOp ---
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 History: CVA Other Medical History: Renal, Bleeding (Bloody diarrhea, bloody vomiting), Diabetes Type II, Thyroid, GERD Alcohol Use: none Drug use: none Medications and Allergies Aspirin 243 mg PO DAILY 04/08/15 [History] Levothyroxine [Synthroid] 50 mcg PO QAM 04/08/15 [History] Omeprazole [PriLOSEC] 40 mg PO DAILY 04/08/15 [History] Pravastatin Sodium [Pravachol] 40 mg PO DAILY 04/08/15 [History] Ropinirole HCl [Requip Xl] 4 mg PO HS 04/08/15 [History] Promethazine [Phenergan] 25 mg PO Q6H PRN 12/03/15 [History] Gabapentin [Neurontin] 300 mg PO TID 08/03/16 [History] HYDROcodone/Acet 5/325 mg [[place] 5-325 mg] 1 tab PO Q6H PRN 08/03/16 [History] Oxycodone HCl 10 mg PO Q6H PRN 08/03/16 [History] Tizanidine HCl 2 mg PO TID PRN 08/03/16 [History] Allergies codeine Allergy (Mild, Verified 04/08/15 09:52) Itching Penicillins Adverse Reaction (Intermediate, Verified 04/08/15 09:52) COMA nitroglycerin Adverse Reaction (Mild, Verified 08/02/15 03:33) LOW BLOOD PRESSURE pt states his blood pressure drops to fast and nitro makes him pass out. NITRATES Allergy (Mild, Uncoded 04/08/15 09:52) Itching NUBAIN Allergy (Mild, Uncoded 08/02/15 03:33) Itching pt states he had a bad instant reaction. - Meds/Allergy Pre-op Review Medications Reviewed: Yes Allergies Reviewed: Yes Beta Blockers on Current Med List: No Anesthesia Results - Labs 08/06/16 04:09 08/06/16 04:09 - Imaging EKG: report reviewed, image reviewed (probable SR (baseline artifact), RBBB, LAD ) Additional studies: -2016 TTE: LVEF 55-60% mild TR mild pulm htn Anesthesia Exam Last Vital Signs Temp 99 F 08/06/16 08:45 Pulse 83 08/06/16 08:49 Resp 17 08/06/16 08:45 BP 154/94 08/06/16 08:45 Pulse Ox 99 08/06/16 08:45 Weight: 89 kg NPO (# of Hours): >> 8 hrs - HEENT Pupil (Motor): Pupils equal, EOMI - DRAFTER GEOLOGICAL LOC: Oriented - Cardiac Rhythm: Regular Murmur: None - Pulmonary Breath Sounds: bilateral Clear Respiratory Effort: Symmetrical Anesthesia Assess/Plan ASA Score: 4 Modified [place] Scale for Level of Consciousness: Cooperative, oriented, and tranquil Anesthetic Plan: MAC Monitoring Plan: Standard Monitors Recovery Plan: PACU
[2016-08-06] MEDS ORDERED: SODIUM CHLORIDE/NAHCO3/KCL/PEG 4,000 ML SOLN.RECON PO ONE ×2 (13:22→19:00)
[2016-08-06] MEDS: *HR* HYDROmorphone (PF) 1 MG/ML SYRINGE IVP PRN ×3 (13:57→22:24)
--- NOTE | 2016-08-06 14:00 | Anesthesia Evaluation Post Op ---
Date of Encounter: 08/06/16 Time of Encounter: 13:40 - Vital Signs Vital Signs: Last Vital Signs Temp 98.3 F 08/06/16 13:06 Pulse 82 08/06/16 13:06 Resp 20 08/06/16 13:06 BP 125/75 08/06/16 13:06 Pulse Ox 96 08/06/16 13:06 - Lungs Lungs: Clear Ascult./Percussion - Airway Airway: Non-obstructed - Cardiovascular Regular Rate - Mental Status Mental Status: Alert & Oriented, Answers Appropriately - Pain Pain Scale: 2 - Nausea Vomiting Nausea Vomiting: Not Present - Hydration Hydration: NPO - Discharge PostOp Status: Transfer Patient to floor
--- NOTE | 2016-08-06 14:31 | Discharge Summary ---
Date of Encounter: 08/06/16 Time of Encounter: 10:15 - Discharge Diagnosis (1) Syncope Priority: Primary Status: Resolved Qualifiers: Syncope type: unspecified Qualified Code(s): R55 - Syncope and collapse (2) OLEG (acute kidney injury) Priority: Secondary Status: Resolved (3) Chest pain Priority: Secondary Status: Resolved Qualifiers: Chest pain type: precordial pain Qualified Code(s): R07.2 - Precordial pain (4) CAD (coronary artery disease) of bypass graft Priority: Secondary Status: Chronic Qualifiers: [place] vs. transplanted heart: [place] heart Associated angina: with unspecified angina Qualified Code(s): I25.709 - Atherosclerosis of coronary artery bypass graft(s), unspecified, with unspecified angina pectoris (5) Cirrhosis Priority: Secondary Status: Chronic Qualifiers: Hepatic cirrhosis type: unspecified hepatic cirrhosis Ascites presence: without ascites Qualified Code(s): K74.60 - Unspecified cirrhosis of liver (6) Diabetes mellitus Priority: Secondary Status: Chronic Qualifiers: Diabetes mellitus type: type 2 Diabetes mellitus complication status: without complication Diabetes mellitus ad terminal makeup operator insulin use: unspecified ad terminal makeup operator insulin use status Qualified Code(s): E11.9 - Type 2 diabetes mellitus without complications (7) Hyperlipemia Priority: Secondary Status: Chronic Qualifiers: Hyperlipidemia type: other hyperlipidemia Qualified Code(s): E78.4 - Other hyperlipidemia (8) Hypertension Priority: Secondary Status: Chronic Qualifiers: Hypertension type: essential hypertension Qualified Code(s): I10 - Essential (primary) hypertension (9) Hypothyroid Priority: Secondary Status: Chronic Qualifiers: Hypothyroidism type: unspecified Qualified Code(s): E03.9 - Hypothyroidism , unspecified (10) Pacemaker malfunction Priority: Secondary Status: Ruled-out Qualifiers: Encounter type: initial encounter Qualified Code(s): T82.111A - Breakdown ( mechanical) of cardiac pulse generator (battery), initial encounter (11) Anemia Priority: Secondary Status: Chronic Qualifiers: Anemia type: iron deficiency Iron deficiency anemia type: other iron deficiency Qualified Code(s): D50.8 - Other iron deficiency anemias - Discharge Medications Prescriptions: Amlodipine [Norvasc] 5 mg PO DAILY #30 tablet Aspirin 81 mg PO DAILY #30 tab.chew Ferrous Sulfate 325 mg PO BIDWM #60 tablet Home Medications: Levothyroxine [Synthroid] 50 mcg PO QAM 04/08/15 [History] Omeprazole [PriLOSEC] 40 mg PO DAILY 04/08/15 [History] Pravastatin Sodium [Pravachol] 40 mg PO DAILY 04/08/15 [History] Ropinirole HCl [Requip Xl] 4 mg PO HS 04/08/15 [History] Promethazine [Phenergan] 25 mg PO Q6H PRN 12/03/15 [History] Gabapentin [Neurontin] 300 mg PO TID 08/03/16 [History] HYDROcodone/Acet 5/325 mg [[place] 5-325 mg] 1 tab PO Q6H PRN 08/03/16 [History] Oxycodone HCl 10 mg PO Q6H PRN 08/03/16 [History] Tizanidine HCl 2 mg PO TID PRN 08/03/16 [History] Aspirin 81 mg PO DAILY #30 tab.chew 08/06/16 [Rx] Ferrous Sulfate 325 mg PO BIDWM #60 tablet 08/06/16 [Rx] Amlodipine [Norvasc] 5 mg PO DAILY #30 tablet 08/07/16 [Rx] Allergies/Adverse Reactions: Allergies codeine Allergy (Mild, Verified 04/08/15 09:52) Itching Penicillins Adverse Reaction (Intermediate, Verified 04/08/15 09:52) COMA nitroglycerin Adverse Reaction (Mild, Verified 08/02/15 03:33) LOW BLOOD PRESSURE pt states his blood pressure drops to fast and nitro makes him pass out. NITRATES Allergy (Mild, Uncoded 04/08/15 09:52) Itching NUBAIN Allergy (Mild, Uncoded 08/02/15 03:33) Itching pt states he had a bad instant reaction. Procedures/tests Complete & Pending: Procedures Performed prior 72 hours Category Date Time Status US liver [US] Routine Exams 08/05/16 20:00 Completed retroperitoneal ultrasound - limited [US Exams 08/04/16 15:30 Completed retroperitoneal limited] [US] Routine EV echocardiogram Routine Y 08/04/16 10:07 Completed Venous Ultrasound [EV venous imaging LE BI] Stat Y 08/04/16 10:03 Completed Date of admission: 08/03/16 14:03 Primary care physician: Niko Knight MD Consults: 08/03/16 16:59 Consult to Edger Runner [CONS] Routine Reason for SW Consult: Family states they have been trying to get HH care arranged for PT at home. 08/04/16 10:07 Consult to Physical Therapy [CONS] Routine Comment: Evaluate, develop and implement POC OT [Consult to Occupational Therapy] [CONS] Routine Comment: Evaluate, develop and implement POC 08/05/16 12:52 Consult to Gastroenterology [CONS] Routine Consulting Provider: Gastroentergulshan Madlonado Reason for Consult: Anemia, cirrhosis Time Notified: 12:52 Call Completed: Yes Discharging clinician: Fransisca Brownlee Anticipated date of discharge: 08/07/16 - Patient Status Disposition: Home Health Service Condition: Good Functional capacity at discharge: uses cane/walker Overall status at discharge: patient is progressing back to baseline - Discharge Instructions Instructions: Chest Pain (DC), Diabetes Mellitus Type 2 in Adults (DC), Anemia (GEN) Follow Up With: Niko Knight MD [Primary Care Provider] - 08/12/16 3:00 pm - Diet and Activity Activity: as per physical therapy Diet: diabetic diet, low fat, low cholesterol, low salt diet Hospital course: Mr. Grewal is a 61 year old male with history of coronary artery disease, hypertension, hyperlipidemia, cirrhosis and diabetes was hospitalized here following a syncopal episode. Patient has a permanent pacemaker and initially there was concern for pacemaker malfunction. However pacemaker interrogation by cardiology did not reveal any abnormalities. Patient has been on telemetry here and has not been found to have any abnormal rhythms. The patient did have acute kidney injury on presentation. His syncope is believed to be due to dehydration related orthostasis. There is also initial concern for PE and DVT. Patient had negative CT angiogram and negative venous Dopplers. Patient had been started on heparin but this was then stopped. Patient has also had a drop in hemoglobin from 10-7. GI has been consulted. Patient underwent upper GI endoscopy today. He did not have any signs of acute bleeding or ulcers. Patient has hiatal hernia which is chronic for him. GI recommends colonoscopy for the patient. If colonoscopy is negative and without any significant bleeding, patient will discharge tomorrow. - Time Spent with Patient Total time spent providing and/or coordinating discharge services: Greater than 30 minutes (40 min) - Constitutional Vitals: Temp Pulse Resp BP Pulse Ox 98.3 F 77 20 125/75 96 08/06/16 13:06 08/06/16 14:09 08/06/16 13:06 08/06/16 13:06 08/06/16 13:06 General appearance: Present: cooperative, mild distress, A&O X 3, pleasant, answers questions appropriately - Respiratory Respiratory exam: Present: CTAB. Absent: accessory muscle use, rales, rhonchi, wheezes - Cardiovascular Cardiovascular exam: Present: RRR, +S1, +S2. Absent: diastolic murmur, gallop, rubs, systolic murmur - Extremities Exam Extremities exam: Present: warm, radial pulses palpable and symetrical. Absent : calf tenderness, cyanotic, pedal edema - Neurological Exam Neurological exam: Present: oriented X3, no focal deficits. Absent: facial droop, speech deficit - Skin Skin exam: Present: dry, intact, pallor - Attending Attestation This document has been at least partially created by [employer] voice recognition technology by Dr. Brownlee. Errors in grammar, wording or other phrases may exist. If errors are found after the documentation is signed, they will be addressed individually in the addendum section of this document when appropriate.
[2016-08-06] MEDS: rOPINIRole 1 MG, rOPINIRole 3 MG PO SCH (20:18)
[2016-08-07] MEDS: *HR* HYDROmorphone (PF) 1 MG/ML SYRINGE IVP PRN (03:58)
[2016-08-07 04:18] LABS: Basophils % 0.2 %; Hemoglobin 8.7 g/dL (12.9-16.9); Immature Granulocytes % 0.2 % (0-4)
[2016-08-07 04:19] LABS: Eosinophils # 0.1 K/mcL (0.0-0.6); Eosinophils % 3.2 %; Hematocrit 28.1 % (37.5-50.1); Immature Platelets 3.2 % (1.1-6.1); Lymphocytes # 0.8 K/mcL (0.6-4.6); Lymphocytes % 20.2 %; Mean Corpuscular Hemoglobin 28.5 pg (28.0-33.3); Mean Corpuscular Volume 92.1 fL (83.0-100.0); Mean Platelet Volume 10.4 fL (9.4-12.4); Monocytes # 0.3 K/mcL (0.0-1.3); Monocytes % 6.5 %; Neutrophils # 2.8 K/mcL (1.6-8.9); Red Blood Count 3.05 M/mcL (4.19-5.50); Red Cell Distribution Width 15.5 % (11.5-14.5); Segmented Neutrophils % 69.7 %
[2016-08-07 04:26] LABS: Platelet Count 99 K/mcL (140-400)
[2016-08-07 04:38] LABS: BUN/Creatinine Ratio 16 (6-26); Blood Urea Nitrogen 13 mg/dL (8-26); Calcium 9.5 mg/dL (8.6-10.8); Carbon Dioxide 23 mEq/L (19-29); Chloride 109 mEq/L (98-109); Glucose 120 mg/dL (70-99); Osmolality,Calculated 289 (280-300); Potassium 4.5 mEq/L (3.5-4.5); Sodium 139 mEq/L (136-145); eGFR For African Americans > 60 (> 60); eGFR For Non-African Americans > 60 (> 60)
[2016-08-07] MEDS: Pantoprazole 40 MG VIAL IVP SCH (06:09)
[2016-08-07] MEDS: Aspirin 81 MG TAB.CHEW PO SCH (07:37)
[2016-08-07] MEDS: *HR* HYDROcodone/Acet 5/325 mg TABLET PO PRN ×3 (07:37→16:09)
[2016-08-07] MEDS: Gabapentin 300 MG CAPSULE PO SCH ×2 (07:37→16:09)
--- NOTE | 2016-08-07 13:54 | Anesthesia Evaluation PreOp ---
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: CVA Other Medical History: Hepatic (cirrhosis), Renal, Bleeding (bloody diarrhea/ bloody vomiting -- neg EGD yesterday), Diabetes Type II, Thyroid, GERD, Other ( infected L hip s/p surgery Jun 2016) Anesthesia History: No Prior Anesthetic Complications Alcohol Use: none Drug use: none Medications and Allergies Levothyroxine [Synthroid] 50 mcg PO QAM 04/08/15 [History] Omeprazole [PriLOSEC] 40 mg PO DAILY 04/08/15 [History] Pravastatin Sodium [Pravachol] 40 mg PO DAILY 04/08/15 [History] Ropinirole HCl [Requip Xl] 4 mg PO HS 04/08/15 [History] Promethazine [Phenergan] 25 mg PO Q6H PRN 12/03/15 [History] Gabapentin [Neurontin] 300 mg PO TID 08/03/16 [History] HYDROcodone/Acet 5/325 mg [[place] 5-325 mg] 1 tab PO Q6H PRN 08/03/16 [History] Oxycodone HCl 10 mg PO Q6H PRN 08/03/16 [History] Tizanidine HCl 2 mg PO TID PRN 08/03/16 [History] Aspirin 81 mg PO DAILY #30 tab.chew 08/06/16 [Rx] Ferrous Sulfate 325 mg PO BIDWM #60 tablet 08/06/16 [Rx] Allergies codeine Allergy (Mild, Verified 04/08/15 09:52) Itching Penicillins Adverse Reaction (Intermediate, Verified 04/08/15 09:52) COMA nitroglycerin Adverse Reaction (Mild, Verified 08/02/15 03:33) LOW BLOOD PRESSURE pt states his blood pressure drops to fast and nitro makes him pass out. NITRATES Allergy (Mild, Uncoded 04/08/15 09:52) Itching NUBAIN Allergy (Mild, Uncoded 08/02/15 03:33) Itching pt states he had a bad instant reaction. - Meds/Allergy Pre-op Review Medications Reviewed: Yes Allergies Reviewed: Yes Beta Blockers on Current Med List: No Anesthesia Results - Labs 08/07/16 04:09 08/07/16 04:09 - Imaging EKG: report reviewed, image reviewed (probably SR (baseline artifact), RBBB, LAD ) Additional studies: TTE: LVEF 55-60% mild TR mild pulm htn Anesthesia Exam Last Vital Signs Temp 98 F 08/07/16 13:46 Pulse 79 08/07/16 13:46 Resp 16 08/07/16 13:46 BP 155/98 08/07/16 13:46 Pulse Ox 99 08/07/16 13:46 Weight: 91 kg NPO (# of Hours): >> 8 hrs - HEENT Pupil (Motor): Pupils equal, EOMI Mallampati: II Teeth: Missing, Poor dentition Oral Opening: Greater than 3 - WIRELESS SALES ASSOCIATE LOC: Oriented - Cardiac Rhythm: Regular Murmur: None - Pulmonary Breath Sounds: bilateral Clear Respiratory Effort: Symmetrical Anesthesia Assess/Plan ASA Score: 4 Modified [place] Scale for Level of Consciousness: Cooperative, oriented, and tranquil Anesthetic Plan: MAC Monitoring Plan: Standard Monitors Recovery Plan: PACU
--- NOTE | 2016-08-07 14:10 | Internal Med Progress Note ---
Date of Encounter: 08/07/16 Time of Encounter: 16:14 - Assessment and plan (1) Syncope Current Visit: Yes Status: Resolved Assessment and plan: No further episodes of syncope. No bradycardic episodes. Most likely this is due to orthostatic syncope with dehydration and acute kidney injury. This seems to have now resolved. Patient has not had any seizures or focal deficits during his stay here. Qualifiers: Syncope type: unspecified Qualified Code(s): R55 - Syncope and collapse (2) OLEG (acute kidney injury) Current Visit: Yes Status: Resolved Assessment and plan: Resolved (3) Chest pain Current Visit: Yes Status: Resolved Assessment and plan: This has also resolved. Negative CTA chest. Negative troponins. Qualifiers: Chest pain type: precordial pain Qualified Code(s): R07.2 - Precordial pain (4) CAD (coronary artery disease) of bypass graft Current Visit: Yes Status: Chronic Assessment and plan: On aspirin, statin Qualifiers: [place] vs. transplanted heart: [place] heart Associated angina: with unspecified angina Qualified Code(s): I25.709 - Atherosclerosis of coronary artery bypass graft(s), unspecified, with unspecified angina pectoris (5) Cirrhosis Current Visit: Yes Status: Chronic Assessment and plan: Supportive care. 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 Will start patient on Norvasc Qualifiers: Hypertension type: essential hypertension Qualified Code(s): I10 - Essential (primary) hypertension (9) Hypothyroid Current Visit: Yes Status: Chronic Assessment and plan: On levothyroxine Qualifiers: Hypothyroidism type: unspecified Qualified Code(s): E03.9 - Hypothyroidism , unspecified (10) Pacemaker malfunction Current Visit: Yes Status: Ruled-out Qualifiers: Encounter type: initial encounter Qualified Code(s): T82.111A - Breakdown ( mechanical) of cardiac pulse generator (battery), initial encounter (11) Anemia Current Visit: Yes Status: Chronic Assessment and plan: Hemoglobin levels have improved after patient received blood transfusion. He underwent colonoscopy today. No active bleeding identified. Patient is now stable to be discharged home. Qualifiers: Anemia type: iron deficiency Iron deficiency anemia type: other iron deficiency Qualified Code(s): D50.8 - Other iron deficiency anemias - Subjective Interval history: Chest pain is improving. Denies any dizziness or lightheadedness currently. No palpitations. No nausea or vomiting. Denies any melena. No abdominal pain. - Constitutional Vitals: Temp Pulse Resp BP Pulse Ox 98 F 79 16 155/98 99 08/07/16 13:46 08/07/16 13:46 08/07/16 13:46 08/07/16 13:46 08/07/16 13:46 General appearance: Present: cooperative, mild distress, A&O X 3, pleasant, answers questions appropriately - Respiratory Respiratory exam: Present: CTAB. Absent: accessory muscle use, rales, rhonchi, wheezes - Cardiovascular Cardiovascular exam: Present: RRR, +S1, +S2. Absent: diastolic murmur, gallop, rubs, systolic murmur - GI/Abdominal GI/Abdominal exam: Present: normal bowel sounds, soft, no peritoneal signs. Absent: distended, tenderness - Extremities Exam Extremities exam: Present: warm, radial pulses palpable and symetrical. Absent : calf tenderness, cyanotic, pedal edema Internal Medicine: Result - Labs CBC & Chem 7: 08/07/16 04:09 08/07/16 04:09 Labs: Short CBC 08/07/16 Range/Units 04:09 WBC 4.0 L (4.3-11.1) K/mcL Hgb 8.7 L (12.9-16.9) g/dL Hct 28.1 L (37.5-50.1) % Plt Count 99 L (140-400) K/mcL Neutrophils # 2.8 (1.6-8.9) K/mcL BMP 08/07/16 04:09 Sodium 139 Potassium 4.5 Chloride 109 Carbon Dioxide 23 BUN 13 Creatinine 0.83 Glucose 120 H Calcium 9.5 - ABG Interpretation ABG results: PT/INR, D-dimer PT 12.9 Seconds (9.4-12.1) H 08/03/16 10:33 D-Dimer 99600 ng/mLFEU (0-500) H 08/03/16 10:33 - Impressions Impressions Hip X-Ray 08/07/16 09:23 IMPRESSION: 1. Decreased bone mineral density. 2. Status post left hip arthroplasty with normal alignment and no acute hardware failure or evidence of fracture. 3. Nonspecific lateral left hemipelvic edematous changes. D/ / 08/07/2016 12:21:41 William Tobias MD / eLona Stewart Interpreting Provider: William Tobias MD Consult Discharge Plan - Plan Instructions: Chest Pain (DC), Diabetes Mellitus Type 2 in Adults (DC), Anemia (GEN) Referrals: Niko Knight MD [Primary Care Provider] - 08/12/16 3:00 pm Prescriptions: Amlodipine [Norvasc] 5 mg PO DAILY #30 tablet Aspirin 81 mg PO DAILY #30 tab.chew Ferrous Sulfate 325 mg PO BIDWM #60 tablet - Attending Attestation This document has been at least partially created by [employer] recognition technology by Dr. Brownlee. Errors in grammar, wording or other phrases may exist. If errors are found after the documentation is signed, they will be addressed individually in the addendum section of this document when appropriate. Medical Decision Making - [facility] Narrative Medical decision making narrative: Moderate risk for complications - Medical Records Medical records reviewed: Yes I reviewed the patient's medical records. - Lab Data Result diagrams: 08/07/16 04:09 08/07/16 04:09 Lab Results 08/03/16 08/03/16 08/03/16 Range/Units 15:57 16:05 16:05 WBC (4.3-11.1) K/mcL RBC (4.19-5.50) M/mcL Hgb (12.9-16.9) g/dL Hct (37.5-50.1) % MCV (83.0-100.0) fL MCH (28.0-33.3) pg MCHC (31.6-35.5) g/dL RDW (11.5-14.5) % Plt Count (140-400) K/mcL MPV (9.4-12.4) fL Reticulocyte # (0.05-0.10) M/mcL Immature Gran % (0-4) % Seg Neutrophils % % Lymphocytes % % Monocytes % % Eosinophils % % Basophils % % Neutrophils # (1.6-8.9) K/mcL Lymphocytes # (0.6-4.6) K/mcL Monocytes # (0.0-1.3) K/mcL Eosinophils # (0.0-0.6) K/mcL Basophils # (0.0-0.2) K/mcL Immature Plt Fraction (1.1-6.1) % Percent Retic (1.6-2.8) % Immature Retic Fraction (11.0-38.0) % Retic Hgb Equivalent (28.61-36.33) pg APTT (26.0-36.0) Seconds Sodium (136-145) mEq/L Potassium (3.5-4.5) mEq/L Chloride (98-109) mEq/L Carbon Dioxide (19-29) mEq/L BUN (8-26) mg/dL Creatinine (0.72-1.25) mg/dL Est GFR ( Amer) (> 60) Est GFR (Non-Af Amer) (> 60) BUN/Creatinine Ratio (6-26) Glucose (70-99) mg/dL POC Glucose 129 H (58-89) Calculated Osmolality (280-300) Calcium (8.6-10.8) mg/dL Phosphorus 4.8 H (2.3-4.7) mg/dL Magnesium 1.8 (1.6-2.6) mg/dL Iron (65-175) mcg/dL % Saturation (20-55) % Transferrin (174-364) mg/dL Total Bilirubin (0.2-1.2) mg/dL Direct Bilirubin (0.0-0.5) mg/dL Indirect Bilirubin (0.0-1.2) mg/dL AST (5-34) Units/L ALT (0-55) Units/L Alkaline Phosphatase (38-126) Units/L Ammonia (18-72) mcmol/L Troponin I 0.00 (0-0.03) ng/mL Serum Total Protein (6.0-8.3) g/dL Albumin (3.5-5.0) g/dL Globulin (2.4-3.5) g/dL Albumin/Globulin Ratio (1.1-2.2) Vitamin B12 (213-816) pg/mL TSH (0.350-4.840) mcIU/mL Urine Color (Yellow) Urine Clarity (Clear) Urine pH (5.0-8.0) pH Units Ur Specific [place] (1.010-1.025) Urine Protein (Neg-Trace) mg/dL Urine Glucose (UA) (Normal) mg/dL Urine Ketones (Negative) mg/dL Urine Blood (Negative) Urine Nitrite (Negative) Urine Bilirubin (Negative) Urine Urobilinogen (Normal) mg/dL Ur Leukocyte Esterase (Negative) Ur Culture Indicated? (NO) Urine Creatinine mg/dL Protein/Creatinin Ratio (0-0.20) mg/mg Urine Total Protein (1-14) mg/dL Urine Opiates Screen (Ekmtij=880) ng/mL Ur Barbiturates Screen (Rhiywo=464) ng/mL Ur Phencyclidine Scrn (Cutoff=25) ng/mL Ur Amphetamines Screen (Tnenof=1423) ng/mL U Benzodiazepines Scrn (Arqmkj=198) ng/mL Urine Cocaine Screen (Cutoff= 300) ng/mL U Marijuana (THC) Screen (Cutoff = 50) ng/mL 08/03/16 08/03/16 08/03/16 Range/Units 17:21 19:42 20:36 WBC (4.3-11.1) K/mcL RBC (4.19-5.50) M/mcL Hgb (12.9-16.9) g/dL Hct (37.5-50.1) % MCV (83.0-100.0) fL MCH (28.0-33.3) pg MCHC (31.6-35.5) g/dL RDW (11.5-14.5) % Plt Count (140-400) K/mcL MPV (9.4-12.4) fL Reticulocyte # (0.05-0.10) M/mcL Immature Gran % (0-4) % Seg Neutrophils % % Lymphocytes % % Monocytes % % Eosinophils % % Basophils % % Neutrophils # (1.6-8.9) K/mcL Lymphocytes # (0.6-4.6) K/mcL Monocytes # (0.0-1.3) K/mcL Eosinophils # (0.0-0.6) K/mcL Basophils # (0.0-0.2) K/mcL Immature Plt Fraction (1.1-6.1) % Percent Retic (1.6-2.8) % Immature Retic Fraction (11.0-38.0) % Retic Hgb Equivalent (28.61-36.33) pg APTT 100.0 H D (26.0-36.0) Seconds Sodium (136-145) mEq/L Potassium (3.5-4.5) mEq/L Chloride (98-109) mEq/L Carbon Dioxide (19-29) mEq/L BUN (8-26) mg/dL Creatinine (0.72-1.25) mg/dL Est GFR ( Amer) (> 60) Est GFR (Non-Af Amer) (> 60) BUN/Creatinine Ratio (6-26) Glucose (70-99) mg/dL POC Glucose 133 H (58-89) Calculated Osmolality (280-300) Calcium (8.6-10.8) mg/dL Phosphorus (2.3-4.7) mg/dL Magnesium (1.6-2.6) mg/dL Iron (65-175) mcg/dL % Saturation (20-55) % Transferrin (174-364) mg/dL Total Bilirubin (0.2-1.2) mg/dL Direct Bilirubin (0.0-0.5) mg/dL Indirect Bilirubin (0.0-1.2) mg/dL AST (5-34) Units/L ALT (0-55) Units/L Alkaline Phosphatase (38-126) Units/L Ammonia (18-72) mcmol/L Troponin I 0.00 (0-0.03) ng/mL Serum Total Protein (6.0-8.3) g/dL Albumin (3.5-5.0) g/dL Globulin (2.4-3.5) g/dL Albumin/Globulin Ratio (1.1-2.2) Vitamin B12 (213-816) pg/mL TSH (0.350-4.840) mcIU/mL Urine Color (Yellow) Urine Clarity (Clear) Urine pH (5.0-8.0) pH Units Ur Specific [place] (1.010-1.025) Urine Protein (Neg-Trace) mg/dL Urine Glucose (UA) (Normal) mg/dL Urine Ketones (Negative) mg/dL Urine Blood (Negative) Urine Nitrite (Negative) Urine Bilirubin (Negative) Urine Urobilinogen (Normal) mg/dL Ur Leukocyte Esterase (Negative) Ur Culture Indicated? (NO) Urine Creatinine mg/dL Protein/Creatinin Ratio (0-0.20) mg/mg Urine Total Protein (1-14) mg/dL Urine Opiates Screen (Wwefyn=598) ng/mL Ur Barbiturates Screen (Agvxwf=670) ng/mL Ur Phencyclidine Scrn (Cutoff=25) ng/mL Ur Amphetamines Screen (Kutamw=8704) ng/mL U Benzodiazepines Scrn (Jnvsow=071) ng/mL Urine Cocaine Screen (Cutoff= 300) ng/mL U Marijuana (THC) Screen (Cutoff = 50) ng/mL 08/04/16 08/04/16 08/04/16 Range/Units 00:41 00:41 00:41 WBC 5.3 (4.3-11.1) K/mcL RBC 2.86 L (4.19-5.50) M/mcL Hgb 8.2 L D (12.9-16.9) g/dL Hct 26.9 L (37.5-50.1) % MCV 94.1 (83.0-100.0) fL MCH 28.7 (28.0-33.3) pg MCHC 30.5 L (31.6-35.5) g/dL RDW 15.9 H (11.5-14.5) % Plt Count 106 L (140-400) K/mcL MPV 10.8 (9.4-12.4) fL Reticulocyte # (0.05-0.10) M/mcL Immature Gran % 0.4 (0-4) % Seg Neutrophils % 65.1 % Lymphocytes % 25.4 % Monocytes % 7.2 % Eosinophils % 1.7 % Basophils % 0.2 % Neutrophils # 3.4 (1.6-8.9) K/mcL Lymphocytes # 1.3 (0.6-4.6) K/mcL Monocytes # 0.4 (0.0-1.3) K/mcL Eosinophils # 0.1 (0.0-0.6) K/mcL Basophils # 0.0 (0.0-0.2) K/mcL Immature Plt Fraction (1.1-6.1) % Percent Retic (1.6-2.8) % Immature Retic Fraction (11.0-38.0) % Retic Hgb Equivalent (28.61-36.33) pg APTT 74.1 H (26.0-36.0) Seconds Sodium 137 (136-145) mEq/L Potassium 4.6 H (3.5-4.5) mEq/L Chloride 110 H (98-109) mEq/L Carbon Dioxide 20 (19-29) mEq/L BUN 28 H (8-26) mg/dL Creatinine 1.80 H (0.72-1.25) mg/dL Est GFR ( Amer) 47 L (> 60) Est GFR (Non-Af Amer) 38 L (> 60) BUN/Creatinine Ratio 16 (6-26) Glucose 127 H (70-99) mg/dL POC Glucose (58-89) Calculated Osmolality 291 (280-300) Calcium 8.2 L (8.6-10.8) mg/dL Phosphorus 4.1 (2.3-4.7) mg/dL Magnesium 1.7 (1.6-2.6) mg/dL Iron (65-175) mcg/dL % Saturation (20-55) % Transferrin (174-364) mg/dL Total Bilirubin (0.2-1.2) mg/dL Direct Bilirubin (0.0-0.5) mg/dL Indirect Bilirubin (0.0-1.2) mg/dL AST (5-34) Units/L ALT (0-55) Units/L Alkaline Phosphatase (38-126) Units/L Ammonia (18-72) mcmol/L Troponin I (0-0.03) ng/mL Serum Total Protein (6.0-8.3) g/dL Albumin (3.5-5.0) g/dL Globulin (2.4-3.5) g/dL Albumin/Globulin Ratio (1.1-2.2) Vitamin B12 (213-816) pg/mL TSH 3.396 (0.350-4.840) mcIU/mL Urine Color (Yellow) Urine Clarity (Clear) Urine pH (5.0-8.0) pH Units Ur Specific [place] (1.010-1.025) Urine Protein (Neg-Trace) mg/dL Urine Glucose (UA) (Normal) mg/dL Urine Ketones (Negative) mg/dL Urine Blood (Negative) Urine Nitrite (Negative) Urine Bilirubin (Negative) Urine Urobilinogen (Normal) mg/dL Ur Leukocyte Esterase (Negative) Ur Culture Indicated? (NO) Urine Creatinine mg/dL Protein/Creatinin Ratio (0-0.20) mg/mg Urine Total Protein (1-14) mg/dL Urine Opiates Screen (Vmvweu=659) ng/mL Ur Barbiturates Screen (Tbrhvi=686) ng/mL Ur Phencyclidine Scrn (Cutoff=25) ng/mL Ur Amphetamines Screen (Qenctp=2704) ng/mL U Benzodiazepines Scrn (Jgqqrd=844) ng/mL Urine Cocaine Screen (Cutoff= 300) ng/mL U Marijuana (THC) Screen (Cutoff = 50) ng/mL 08/04/16 08/04/16 08/04/16 Range/Units 01:20 01:20 05:23 WBC (4.3-11.1) K/mcL RBC (4.19-5.50) M/mcL Hgb (12.9-16.9) g/dL Hct (37.5-50.1) % MCV (83.0-100.0) fL MCH (28.0-33.3) pg MCHC (31.6-35.5) g/dL RDW (11.5-14.5) % Plt Count (140-400) K/mcL MPV (9.4-12.4) fL Reticulocyte # (0.05-0.10) M/mcL Immature Gran % (0-4) % Seg Neutrophils % % Lymphocytes % % Monocytes % % Eosinophils % % Basophils % % Neutrophils # (1.6-8.9) K/mcL Lymphocytes # (0.6-4.6) K/mcL Monocytes # (0.0-1.3) K/mcL Eosinophils # (0.0-0.6) K/mcL Basophils # (0.0-0.2) K/mcL Immature Plt Fraction (1.1-6.1) % Percent Retic (1.6-2.8) % Immature Retic Fraction (11.0-38.0) % Retic Hgb Equivalent (28.61-36.33) pg APTT 66.0 H (26.0-36.0) Seconds Sodium (136-145) mEq/L Potassium (3.5-4.5) mEq/L Chloride (98-109) mEq/L Carbon Dioxide (19-29) mEq/L BUN (8-26) mg/dL Creatinine (0.72-1.25) mg/dL Est GFR ( Amer) (> 60) Est GFR (Non-Af Amer) (> 60) BUN/Creatinine Ratio (6-26) Glucose (70-99) mg/dL POC Glucose (58-89) Calculated Osmolality (280-300) Calcium (8.6-10.8) mg/dL Phosphorus (2.3-4.7) mg/dL Magnesium (1.6-2.6) mg/dL Iron (65-175) mcg/dL % Saturation (20-55) % Transferrin (174-364) mg/dL Total Bilirubin (0.2-1.2) mg/dL Direct Bilirubin (0.0-0.5) mg/dL Indirect Bilirubin (0.0-1.2) mg/dL AST (5-34) Units/L ALT (0-55) Units/L Alkaline Phosphatase (38-126) Units/L Ammonia (18-72) mcmol/L Troponin I (0-0.03) ng/mL Serum Total Protein (6.0-8.3) g/dL Albumin (3.5-5.0) g/dL Globulin (2.4-3.5) g/dL Albumin/Globulin Ratio (1.1-2.2) Vitamin B12 (213-816) pg/mL TSH (0.350-4.840) mcIU/mL Urine Color Yellow (Yellow) Urine Clarity Clear (Clear) Urine pH 6.0 (5.0-8.0) pH Units Ur Specific [place] > 1.030 H (1.010-1.025) Urine Protein Negative (Neg-Trace) mg/dL Urine Glucose (UA) Normal (Normal) mg/dL Urine Ketones Negative (Negative) mg/dL Urine Blood Negative (Negative) Urine Nitrite Negative (Negative) Urine Bilirubin Negative (Negative) Urine Urobilinogen Normal (Normal) mg/dL Ur Leukocyte Esterase Negative (Negative) Ur Culture Indicated? (NO) Urine Creatinine mg/dL Protein/Creatinin Ratio (0-0.20) mg/mg Urine Total Protein (1-14) mg/dL Urine Opiates Screen Positive H (Ildhzx=843) ng/mL Ur Barbiturates Screen Negative (Rbdsfg=190) ng/mL Ur Phencyclidine Scrn Negative (Cutoff=25) ng/mL Ur Amphetamines Screen Negative (Glnuua=3032) ng/mL U Benzodiazepines Scrn Negative (Ludbic=649) ng/mL Urine Cocaine Screen Negative (Cutoff= 300) ng/mL U Marijuana (THC) Screen Negative (Cutoff = 50) ng/mL 08/04/16 08/04/16 08/04/16 Range/Units 07:37 10:59 10:59 WBC (4.3-11.1) K/mcL RBC (4.19-5.50) M/mcL Hgb (12.9-16.9) g/dL Hct (37.5-50.1) % MCV (83.0-100.0) fL MCH (28.0-33.3) pg MCHC (31.6-35.5) g/dL RDW (11.5-14.5) % Plt Count (140-400) K/mcL MPV (9.4-12.4) fL Reticulocyte # (0.05-0.10) M/mcL Immature Gran % (0-4) % Seg Neutrophils % % Lymphocytes % % Monocytes % % Eosinophils % % Basophils % % Neutrophils # (1.6-8.9) K/mcL Lymphocytes # (0.6-4.6) K/mcL Monocytes # (0.0-1.3) K/mcL Eosinophils # (0.0-0.6) K/mcL Basophils # (0.0-0.2) K/mcL Immature Plt Fraction (1.1-6.1) % Percent Retic (1.6-2.8) % Immature Retic Fraction (11.0-38.0) % Retic Hgb Equivalent (28.61-36.33) pg APTT (26.0-36.0) Seconds Sodium (136-145) mEq/L Potassium (3.5-4.5) mEq/L Chloride (98-109) mEq/L Carbon Dioxide (19-29) mEq/L BUN (8-26) mg/dL Creatinine (0.72-1.25) mg/dL Est GFR ( Amer) (> 60) Est GFR (Non-Af Amer) (> 60) BUN/Creatinine Ratio (6-26) Glucose (70-99) mg/dL POC Glucose 146 H (58-89) Calculated Osmolality (280-300) Calcium (8.6-10.8) mg/dL Phosphorus (2.3-4.7) mg/dL Magnesium (1.6-2.6) mg/dL Iron 37 L (65-175) mcg/dL % Saturation 12 L (20-55) % Transferrin 221 (174-364) mg/dL Total Bilirubin (0.2-1.2) mg/dL Direct Bilirubin (0.0-0.5) mg/dL Indirect Bilirubin (0.0-1.2) mg/dL AST (5-34) Units/L ALT (0-55) Units/L Alkaline Phosphatase (38-126) Units/L Ammonia (18-72) mcmol/L Troponin I (0-0.03) ng/mL Serum Total Protein (6.0-8.3) g/dL Albumin (3.5-5.0) g/dL Globulin (2.4-3.5) g/dL Albumin/Globulin Ratio (1.1-2.2) Vitamin B12 468 (213-816) pg/mL TSH (0.350-4.840) mcIU/mL Urine Color (Yellow) Urine Clarity (Clear) Urine pH (5.0-8.0) pH Units Ur Specific [place] (1.010-1.025) Urine Protein (Neg-Trace) mg/dL Urine Glucose (UA) (Normal) mg/dL Urine Ketones (Negative) mg/dL Urine Blood (Negative) Urine Nitrite (Negative) Urine Bilirubin (Negative) Urine Urobilinogen (Normal) mg/dL Ur Leukocyte Esterase (Negative) Ur Culture Indicated? (NO) Urine Creatinine mg/dL Protein/Creatinin Ratio (0-0.20) mg/mg Urine Total Protein (1-14) mg/dL Urine Opiates Screen (Ztbdry=222) ng/mL Ur Barbiturates Screen (Idsbfc=781) ng/mL Ur Phencyclidine Scrn (Cutoff=25) ng/mL Ur Amphetamines Screen (Laqful=9315) ng/mL U Benzodiazepines Scrn (Hxlyjs=724) ng/mL Urine Cocaine Screen (Cutoff= 300) ng/mL U Marijuana (THC) Screen (Cutoff = 50) ng/mL 08/04/16 08/04/16 08/04/16 Range/Units 11:30 11:30 11:51 WBC (4.3-11.1) K/mcL RBC (4.19-5.50) M/mcL Hgb (12.9-16.9) g/dL Hct (37.5-50.1) % MCV (83.0-100.0) fL MCH (28.0-33.3) pg MCHC (31.6-35.5) g/dL RDW (11.5-14.5) % Plt Count (140-400) K/mcL MPV (9.4-12.4) fL Reticulocyte # (0.05-0.10) M/mcL Immature Gran % (0-4) % Seg Neutrophils % % Lymphocytes % % Monocytes % % Eosinophils % % Basophils % % Neutrophils # (1.6-8.9) K/mcL Lymphocytes # (0.6-4.6) K/mcL Monocytes # (0.0-1.3) K/mcL Eosinophils # (0.0-0.6) K/mcL Basophils # (0.0-0.2) K/mcL Immature Plt Fraction (1.1-6.1) % Percent Retic (1.6-2.8) % Immature Retic Fraction (11.0-38.0) % Retic Hgb Equivalent (28.61-36.33) pg APTT (26.0-36.0) Seconds Sodium (136-145) mEq/L Potassium (3.5-4.5) mEq/L Chloride (98-109) mEq/L Carbon Dioxide (19-29) mEq/L BUN (8-26) mg/dL Creatinine (0.72-1.25) mg/dL Est GFR ( Amer) (> 60) Est GFR (Non-Af Amer) (> 60) BUN/Creatinine Ratio (6-26) Glucose (70-99) mg/dL POC Glucose 109 H (58-89) Calculated Osmolality (280-300) Calcium (8.6-10.8) mg/dL Phosphorus (2.3-4.7) mg/dL Magnesium (1.6-2.6) mg/dL Iron (65-175) mcg/dL % Saturation (20-55) % Transferrin (174-364) mg/dL Total Bilirubin (0.2-1.2) mg/dL Direct Bilirubin (0.0-0.5) mg/dL Indirect Bilirubin (0.0-1.2) mg/dL AST (5-34) Units/L ALT (0-55) Units/L Alkaline Phosphatase (38-126) Units/L Ammonia (18-72) mcmol/L Troponin I (0-0.03) ng/mL Serum Total Protein (6.0-8.3) g/dL Albumin (3.5-5.0) g/dL Globulin (2.4-3.5) g/dL Albumin/Globulin Ratio (1.1-2.2) Vitamin B12 (213-816) pg/mL TSH (0.350-4.840) mcIU/mL Urine Color Yellow (Yellow) Urine Clarity Clear (Clear) Urine pH 6.0 (5.0-8.0) pH Units Ur Specific [place] 1.013 (1.010-1.025) Urine Protein Negative (Neg-Trace) mg/dL Urine Glucose (UA) Normal (Normal) mg/dL Urine Ketones Negative (Negative) mg/dL Urine Blood Negative (Negative) Urine Nitrite Negative (Negative) Urine Bilirubin Negative (Negative) Urine Urobilinogen Normal (Normal) mg/dL Ur Leukocyte Esterase Negative (Negative) Ur Culture Indicated? NO (NO) Urine Creatinine 44 mg/dL Protein/Creatinin Ratio < 0.16 (0-0.20) mg/mg Urine Total Protein < 7 (1-14) mg/dL Urine Opiates Screen (Oeostd=657) ng/mL Ur Barbiturates Screen (Dlpzah=127) ng/mL Ur Phencyclidine Scrn (Cutoff=25) ng/mL Ur Amphetamines Screen (Hhrjxc=6658) ng/mL U Benzodiazepines Scrn (Bwghus=335) ng/mL Urine Cocaine Screen (Cutoff= 300) ng/mL U Marijuana (THC) Screen (Cutoff = 50) ng/mL 08/04/16 08/04/16 08/04/16 Range/Units 14:34 14:34 15:28 WBC (4.3-11.1) K/mcL RBC (4.19-5.50) M/mcL Hgb (12.9-16.9) g/dL Hct (37.5-50.1) % MCV (83.0-100.0) fL MCH (28.0-33.3) pg MCHC (31.6-35.5) g/dL RDW (11.5-14.5) % Plt Count (140-400) K/mcL MPV (9.4-12.4) fL Reticulocyte # 0.05 (0.05-0.10) M/mcL Immature Gran % (0-4) % Seg Neutrophils % % Lymphocytes % % Monocytes % % Eosinophils % % Basophils % % Neutrophils # (1.6-8.9) K/mcL Lymphocytes # (0.6-4.6) K/mcL Monocytes # (0.0-1.3) K/mcL Eosinophils # (0.0-0.6) K/mcL Basophils # (0.0-0.2) K/mcL Immature Plt Fraction (1.1-6.1) % Percent Retic 2.0 (1.6-2.8) % Immature Retic Fraction 11.8 (11.0-38.0) % Retic Hgb Equivalent 30.1 (28.61-36.33) pg APTT (26.0-36.0) Seconds Sodium (136-145) mEq/L Potassium (3.5-4.5) mEq/L Chloride (98-109) mEq/L Carbon Dioxide (19-29) mEq/L BUN (8-26) mg/dL Creatinine (0.72-1.25) mg/dL Est GFR ( Amer) (> 60) Est GFR (Non-Af Amer) (> 60) BUN/Creatinine Ratio (6-26) Glucose (70-99) mg/dL POC Glucose 155 H (58-89) Calculated Osmolality (280-300) Calcium (8.6-10.8) mg/dL Phosphorus (2.3-4.7) mg/dL Magnesium (1.6-2.6) mg/dL Iron (65-175) mcg/dL % Saturation (20-55) % Transferrin (174-364) mg/dL Total Bilirubin (0.2-1.2) mg/dL Direct Bilirubin (0.0-0.5) mg/dL Indirect Bilirubin (0.0-1.2) mg/dL AST (5-34) Units/L ALT (0-55) Units/L Alkaline Phosphatase (38-126) Units/L Ammonia 29 (18-72) mcmol/L Troponin I (0-0.03) ng/mL Serum Total Protein (6.0-8.3) g/dL Albumin (3.5-5.0) g/dL Globulin (2.4-3.5) g/dL Albumin/Globulin Ratio (1.1-2.2) Vitamin B12 (213-816) pg/mL TSH (0.350-4.840) mcIU/mL Urine Color (Yellow) Urine Clarity (Clear) Urine pH (5.0-8.0) pH Units Ur Specific [place] (1.010-1.025) Urine Protein (Neg-Trace) mg/dL Urine Glucose (UA) (Normal) mg/dL Urine Ketones (Negative) mg/dL Urine Blood (Negative) Urine Nitrite (Negative) Urine Bilirubin (Negative) Urine Urobilinogen (Normal) mg/dL Ur Leukocyte Esterase (Negative) Ur Culture Indicated? (NO) Urine Creatinine mg/dL Protein/Creatinin Ratio (0-0.20) mg/mg Urine Total Protein (1-14) mg/dL Urine Opiates Screen (Ivmbml=269) ng/mL Ur Barbiturates Screen (Sffkqp=352) ng/mL Ur Phencyclidine Scrn (Cutoff=25) ng/mL Ur Amphetamines Screen (Ntimjl=6485) ng/mL U Benzodiazepines Scrn (Npxkve=009) ng/mL Urine Cocaine Screen (Cutoff= 300) ng/mL U Marijuana (THC) Screen (Cutoff = 50) ng/mL 08/04/16 08/05/16 08/05/16 Range/Units 20:50 04:52 04:52 WBC (4.3-11.1) K/mcL RBC (4.19-5.50) M/mcL Hgb (12.9-16.9) g/dL Hct (37.5-50.1) % MCV (83.0-100.0) fL MCH (28.0-33.3) pg MCHC (31.6-35.5) g/dL RDW (11.5-14.5) % Plt Count (140-400) K/mcL MPV (9.4-12.4) fL Reticulocyte # (0.05-0.10) M/mcL Immature Gran % (0-4) % Seg Neutrophils % % Lymphocytes % % Monocytes % % Eosinophils % % Basophils % % Neutrophils # (1.6-8.9) K/mcL Lymphocytes # (0.6-4.6) K/mcL Monocytes # (0.0-1.3) K/mcL Eosinophils # (0.0-0.6) K/mcL Basophils # (0.0-0.2) K/mcL Immature Plt Fraction (1.1-6.1) % Percent Retic (1.6-2.8) % Immature Retic Fraction (11.0-38.0) % Retic Hgb Equivalent (28.61-36.33) pg APTT (26.0-36.0) Seconds Sodium 141 (136-145) mEq/L Potassium 5.2 H (3.5-4.5) mEq/L Chloride 116 H (98-109) mEq/L Carbon Dioxide 20 (19-29) mEq/L BUN 20 (8-26) mg/dL Creatinine 1.08 (0.72-1.25) mg/dL Est GFR ( Amer) > 60 (> 60) Est GFR (Non-Af Amer) > 60 (> 60) BUN/Creatinine Ratio 19 (6-26) Glucose 156 H (70-99) mg/dL POC Glucose 174 H (58-89) Calculated Osmolality 298 (280-300) Calcium 8.4 L (8.6-10.8) mg/dL Phosphorus (2.3-4.7) mg/dL Magnesium (1.6-2.6) mg/dL Iron (65-175) mcg/dL % Saturation (20-55) % Transferrin (174-364) mg/dL Total Bilirubin 0.5 (0.2-1.2) mg/dL Direct Bilirubin 0.2 (0.0-0.5) mg/dL Indirect Bilirubin 0.3 (0.0-1.2) mg/dL AST 15 (5-34) Units/L ALT 8 (0-55) Units/L Alkaline Phosphatase 108 (38-126) Units/L Ammonia (18-72) mcmol/L Troponin I (0-0.03) ng/mL Serum Total Protein 6.2 (6.0-8.3) g/dL Albumin 2.9 L (3.5-5.0) g/dL Globulin 3.3 (2.4-3.5) g/dL Albumin/Globulin Ratio 0.9 L (1.1-2.2) Vitamin B12 (213-816) pg/mL TSH (0.350-4.840) mcIU/mL Urine Color (Yellow) Urine Clarity (Clear) Urine pH (5.0-8.0) pH Units Ur Specific [place] (1.010-1.025) Urine Protein (Neg-Trace) mg/dL Urine Glucose (UA) (Normal) mg/dL Urine Ketones (Negative) mg/dL Urine Blood (Negative) Urine Nitrite (Negative) Urine Bilirubin (Negative) Urine Urobilinogen (Normal) mg/dL Ur Leukocyte Esterase (Negative) Ur Culture Indicated? (NO) Urine Creatinine mg/dL Protein/Creatinin Ratio (0-0.20) mg/mg Urine Total Protein (1-14) mg/dL Urine Opiates Screen (Dgmmli=557) ng/mL Ur Barbiturates Screen (Zfjbzq=717) ng/mL Ur Phencyclidine Scrn (Cutoff=25) ng/mL Ur Amphetamines Screen (Ovpqyz=8831) ng/mL U Benzodiazepines Scrn (Xvnbol=334) ng/mL Urine Cocaine Screen (Cutoff= 300) ng/mL U Marijuana (THC) Screen (Cutoff = 50) ng/mL 08/05/16 08/05/16 08/05/16 Range/Units 07:04 11:01 12:41 WBC (4.3-11.1) K/mcL RBC (4.19-5.50) M/mcL Hgb 7.2 L (12.9-16.9) g/dL Hct 23.6 L (37.5-50.1) % MCV (83.0-100.0) fL MCH (28.0-33.3) pg MCHC (31.6-35.5) g/dL RDW (11.5-14.5) % Plt Count (140-400) K/mcL MPV (9.4-12.4) fL Reticulocyte # (0.05-0.10) M/mcL Immature Gran % (0-4) % Seg Neutrophils % % Lymphocytes % % Monocytes % % Eosinophils % % Basophils % % Neutrophils # (1.6-8.9) K/mcL Lymphocytes # (0.6-4.6) K/mcL Monocytes # (0.0-1.3) K/mcL Eosinophils # (0.0-0.6) K/mcL Basophils # (0.0-0.2) K/mcL Immature Plt Fraction (1.1-6.1) % Percent Retic (1.6-2.8) % Immature Retic Fraction (11.0-38.0) % Retic Hgb Equivalent (28.61-36.33) pg APTT (26.0-36.0) Seconds Sodium (136-145) mEq/L Potassium (3.5-4.5) mEq/L Chloride (98-109) mEq/L Carbon Dioxide (19-29) mEq/L BUN (8-26) mg/dL Creatinine (0.72-1.25) mg/dL Est GFR ( Amer) (> 60) Est GFR (Non-Af Amer) (> 60) BUN/Creatinine Ratio (6-26) Glucose (70-99) mg/dL POC Glucose 163 H 123 H (58-89) Calculated Osmolality (280-300) Calcium (8.6-10.8) mg/dL Phosphorus (2.3-4.7) mg/dL Magnesium (1.6-2.6) mg/dL Iron (65-175) mcg/dL % Saturation (20-55) % Transferrin (174-364) mg/dL Total Bilirubin (0.2-1.2) mg/dL Direct Bilirubin (0.0-0.5) mg/dL Indirect Bilirubin (0.0-1.2) mg/dL AST (5-34) Units/L ALT (0-55) Units/L Alkaline Phosphatase (38-126) Units/L Ammonia (18-72) mcmol/L Troponin I (0-0.03) ng/mL Serum Total Protein (6.0-8.3) g/dL Albumin (3.5-5.0) g/dL Globulin (2.4-3.5) g/dL Albumin/Globulin Ratio (1.1-2.2) Vitamin B12 (213-816) pg/mL TSH (0.350-4.840) mcIU/mL Urine Color (Yellow) Urine Clarity (Clear) Urine pH (5.0-8.0) pH Units Ur Specific [place] (1.010-1.025) Urine Protein (Neg-Trace) mg/dL Urine Glucose (UA) (Normal) mg/dL Urine Ketones (Negative) mg/dL Urine Blood (Negative) Urine Nitrite (Negative) Urine Bilirubin (Negative) Urine Urobilinogen (Normal) mg/dL Ur Leukocyte Esterase (Negative) Ur Culture Indicated? (NO) Urine Creatinine mg/dL Protein/Creatinin Ratio (0-0.20) mg/mg Urine Total Protein (1-14) mg/dL Urine Opiates Screen (Hwxouc=574) ng/mL Ur Barbiturates Screen (Qvxgfu=070) ng/mL Ur Phencyclidine Scrn (Cutoff=25) ng/mL Ur Amphetamines Screen (Tclqtm=1099) ng/mL U Benzodiazepines Scrn (Toioam=589) ng/mL Urine Cocaine Screen (Cutoff= 300) ng/mL U Marijuana (THC) Screen (Cutoff = 50) ng/mL 08/05/16 08/05/16 08/05/16 Range/Units 16:03 19:42 19:54 WBC (4.3-11.1) K/mcL RBC (4.19-5.50) M/mcL Hgb 7.1 L (12.9-16.9) g/dL Hct 23.1 L (37.5-50.1) % MCV (83.0-100.0) fL MCH (28.0-33.3) pg MCHC (31.6-35.5) g/dL RDW (11.5-14.5) % Plt Count (140-400) K/mcL MPV (9.4-12.4) fL Reticulocyte # (0.05-0.10) M/mcL Immature Gran % (0-4) % Seg Neutrophils % % Lymphocytes % % Monocytes % % Eosinophils % % Basophils % % Neutrophils # (1.6-8.9) K/mcL Lymphocytes # (0.6-4.6) K/mcL Monocytes # (0.0-1.3) K/mcL Eosinophils # (0.0-0.6) K/mcL Basophils # (0.0-0.2) K/mcL Immature Plt Fraction (1.1-6.1) % Percent Retic (1.6-2.8) % Immature Retic Fraction (11.0-38.0) % Retic Hgb Equivalent (28.61-36.33) pg APTT (26.0-36.0) Seconds Sodium (136-145) mEq/L Potassium (3.5-4.5) mEq/L Chloride (98-109) mEq/L Carbon Dioxide (19-29) mEq/L BUN (8-26) mg/dL Creatinine (0.72-1.25) mg/dL Est GFR ( Amer) (> 60) Est GFR (Non-Af Amer) (> 60) BUN/Creatinine Ratio (6-26) Glucose (70-99) mg/dL POC Glucose 130 H 143 H (58-89) Calculated Osmolality (280-300) Calcium (8.6-10.8) mg/dL Phosphorus (2.3-4.7) mg/dL Magnesium (1.6-2.6) mg/dL Iron (65-175) mcg/dL % Saturation (20-55) % Transferrin (174-364) mg/dL Total Bilirubin (0.2-1.2) mg/dL Direct Bilirubin (0.0-0.5) mg/dL Indirect Bilirubin (0.0-1.2) mg/dL AST (5-34) Units/L ALT (0-55) Units/L Alkaline Phosphatase (38-126) Units/L Ammonia (18-72) mcmol/L Troponin I (0-0.03) ng/mL Serum Total Protein (6.0-8.3) g/dL Albumin (3.5-5.0) g/dL Globulin (2.4-3.5) g/dL Albumin/Globulin Ratio (1.1-2.2) Vitamin B12 (213-816) pg/mL TSH (0.350-4.840) mcIU/mL Urine Color (Yellow) Urine Clarity (Clear) Urine pH (5.0-8.0) pH Units Ur Specific [place] (1.010-1.025) Urine Protein (Neg-Trace) mg/dL Urine Glucose (UA) (Normal) mg/dL Urine Ketones (Negative) mg/dL Urine Blood (Negative) Urine Nitrite (Negative) Urine Bilirubin (Negative) Urine Urobilinogen (Normal) mg/dL Ur Leukocyte Esterase (Negative) Ur Culture Indicated? (NO) Urine Creatinine mg/dL Protein/Creatinin Ratio (0-0.20) mg/mg Urine Total Protein (1-14) mg/dL Urine Opiates Screen (Uaqfdw=446) ng/mL Ur Barbiturates Screen (Vtvdom=973) ng/mL Ur Phencyclidine Scrn (Cutoff=25) ng/mL Ur Amphetamines Screen (Kmhxre=5848) ng/mL U Benzodiazepines Scrn (Xwjuot=003) ng/mL Urine Cocaine Screen (Cutoff= 300) ng/mL U Marijuana (THC) Screen (Cutoff = 50) ng/mL 08/06/16 08/06/16 08/06/16 Range/Units 04:09 04:09 07:15 WBC 3.4 L (4.3-11.1) K/mcL RBC 2.54 L (4.19-5.50) M/mcL Hgb 7.4 L (12.9-16.9) g/dL Hct 24.1 L (37.5-50.1) % MCV 94.9 (83.0-100.0) fL MCH 29.1 (28.0-33.3) pg MCHC 30.7 L (31.6-35.5) g/dL RDW 15.5 H (11.5-14.5) % Plt Count 94 L (140-400) K/mcL MPV 10.8 (9.4-12.4) fL Reticulocyte # (0.05-0.10) M/mcL Immature Gran % 0.3 (0-4) % Seg Neutrophils % 61.0 % Lymphocytes % 29.8 % Monocytes % 6.5 % Eosinophils % 2.1 % Basophils % 0.3 % Neutrophils # 2.1 (1.6-8.9) K/mcL Lymphocytes # 1.0 (0.6-4.6) K/mcL Monocytes # 0.2 (0.0-1.3) K/mcL Eosinophils # 0.1 (0.0-0.6) K/mcL Basophils # 0.0 (0.0-0.2) K/mcL Immature Plt Fraction 3.6 (1.1-6.1) % Percent Retic (1.6-2.8) % Immature Retic Fraction (11.0-38.0) % Retic Hgb Equivalent (28.61-36.33) pg APTT (26.0-36.0) Seconds Sodium 142 (136-145) mEq/L Potassium 4.9 H (3.5-4.5) mEq/L Chloride 112 H (98-109) mEq/L Carbon Dioxide 23 (19-29) mEq/L BUN 16 (8-26) mg/dL Creatinine 1.02 (0.72-1.25) mg/dL Est GFR ( Amer) > 60 (> 60) Est GFR (Non-Af Amer) > 60 (> 60) BUN/Creatinine Ratio 16 (6-26) Glucose 125 H (70-99) mg/dL POC Glucose 128 H (58-89) Calculated Osmolality 297 (280-300) Calcium 9.1 (8.6-10.8) mg/dL Phosphorus (2.3-4.7) mg/dL Magnesium (1.6-2.6) mg/dL Iron (65-175) mcg/dL % Saturation (20-55) % Transferrin (174-364) mg/dL Total Bilirubin (0.2-1.2) mg/dL Direct Bilirubin (0.0-0.5) mg/dL Indirect Bilirubin (0.0-1.2) mg/dL AST (5-34) Units/L ALT (0-55) Units/L Alkaline Phosphatase (38-126) Units/L Ammonia (18-72) mcmol/L Troponin I (0-0.03) ng/mL Serum Total Protein (6.0-8.3) g/dL Albumin (3.5-5.0) g/dL Globulin (2.4-3.5) g/dL Albumin/Globulin Ratio (1.1-2.2) Vitamin B12 (213-816) pg/mL TSH (0.350-4.840) mcIU/mL Urine Color (Yellow) Urine Clarity (Clear) Urine pH (5.0-8.0) pH Units Ur Specific [place] (1.010-1.025) Urine Protein (Neg-Trace) mg/dL Urine Glucose (UA) (Normal) mg/dL Urine Ketones (Negative) mg/dL Urine Blood (Negative) Urine Nitrite (Negative) Urine Bilirubin (Negative) Urine Urobilinogen (Normal) mg/dL Ur Leukocyte Esterase (Negative) Ur Culture Indicated? (NO) Urine Creatinine mg/dL Protein/Creatinin Ratio (0-0.20) mg/mg Urine Total Protein (1-14) mg/dL Urine Opiates Screen (Xqckeo=463) ng/mL Ur Barbiturates Screen (Rcgxmk=677) ng/mL Ur Phencyclidine Scrn (Cutoff=25) ng/mL Ur Amphetamines Screen (Vpcxxy=2143) ng/mL U Benzodiazepines Scrn (Schieh=367) ng/mL Urine Cocaine Screen (Cutoff= 300) ng/mL U Marijuana (THC) Screen (Cutoff = 50) ng/mL 08/06/16 08/06/16 08/06/16 Range/Units 10:53 15:31 20:46 WBC (4.3-11.1) K/mcL RBC (4.19-5.50) M/mcL Hgb (12.9-16.9) g/dL Hct (37.5-50.1) % MCV (83.0-100.0) fL MCH (28.0-33.3) pg MCHC (31.6-35.5) g/dL RDW (11.5-14.5) % Plt Count (140-400) K/mcL MPV (9.4-12.4) fL Reticulocyte # (0.05-0.10) M/mcL Immature Gran % (0-4) % Seg Neutrophils % % Lymphocytes % % Monocytes % % Eosinophils % % Basophils % % Neutrophils # (1.6-8.9) K/mcL Lymphocytes # (0.6-4.6) K/mcL Monocytes # (0.0-1.3) K/mcL Eosinophils # (0.0-0.6) K/mcL Basophils # (0.0-0.2) K/mcL Immature Plt Fraction (1.1-6.1) % Percent Retic (1.6-2.8) % Immature Retic Fraction (11.0-38.0) % Retic Hgb Equivalent (28.61-36.33) pg APTT (26.0-36.0) Seconds Sodium (136-145) mEq/L Potassium (3.5-4.5) mEq/L Chloride (98-109) mEq/L Carbon Dioxide (19-29) mEq/L BUN (8-26) mg/dL Creatinine (0.72-1.25) mg/dL Est GFR ( Amer) (> 60) Est GFR (Non-Af Amer) (> 60) BUN/Creatinine Ratio (6-26) Glucose (70-99) mg/dL POC Glucose 108 H 114 H 105 H (58-89) Calculated Osmolality (280-300) Calcium (8.6-10.8) mg/dL Phosphorus (2.3-4.7) mg/dL Magnesium (1.6-2.6) mg/dL Iron (65-175) mcg/dL % Saturation (20-55) % Transferrin (174-364) mg/dL Total Bilirubin (0.2-1.2) mg/dL Direct Bilirubin (0.0-0.5) mg/dL Indirect Bilirubin (0.0-1.2) mg/dL AST (5-34) Units/L ALT (0-55) Units/L Alkaline Phosphatase (38-126) Units/L Ammonia (18-72) mcmol/L Troponin I (0-0.03) ng/mL Serum Total Protein (6.0-8.3) g/dL Albumin (3.5-5.0) g/dL Globulin (2.4-3.5) g/dL Albumin/Globulin Ratio (1.1-2.2) Vitamin B12 (213-816) pg/mL TSH (0.350-4.840) mcIU/mL Urine Color (Yellow) Urine Clarity (Clear) Urine pH (5.0-8.0) pH Units Ur Specific [place] (1.010-1.025) Urine Protein (Neg-Trace) mg/dL Urine Glucose (UA) (Normal) mg/dL Urine Ketones (Negative) mg/dL Urine Blood (Negative) Urine Nitrite (Negative) Urine Bilirubin (Negative) Urine Urobilinogen (Normal) mg/dL Ur Leukocyte Esterase (Negative) Ur Culture Indicated? (NO) Urine Creatinine mg/dL Protein/Creatinin Ratio (0-0.20) mg/mg Urine Total Protein (1-14) mg/dL Urine Opiates Screen (Uufkii=098) ng/mL Ur Barbiturates Screen (Grwiqa=903) ng/mL Ur Phencyclidine Scrn (Cutoff=25) ng/mL Ur Amphetamines Screen (Ihuzrn=7699) ng/mL U Benzodiazepines Scrn (Gbgpxb=958) ng/mL Urine Cocaine Screen (Cutoff= 300) ng/mL U Marijuana (THC) Screen (Cutoff = 50) ng/mL 08/07/16 08/07/16 08/07/16 Range/Units 04:09 04:09 07:01 WBC 4.0 L (4.3-11.1) K/mcL RBC 3.05 L (4.19-5.50) M/mcL Hgb 8.7 L (12.9-16.9) g/dL Hct 28.1 L (37.5-50.1) % MCV 92.1 (83.0-100.0) fL MCH 28.5 (28.0-33.3) pg MCHC 31.0 L (31.6-35.5) g/dL RDW 15.5 H (11.5-14.5) % Plt Count 99 L (140-400) K/mcL MPV 10.4 (9.4-12.4) fL Reticulocyte # (0.05-0.10) M/mcL Immature Gran % 0.2 (0-4) % Seg Neutrophils % 69.7 % Lymphocytes % 20.2 % Monocytes % 6.5 % Eosinophils % 3.2 % Basophils % 0.2 % Neutrophils # 2.8 (1.6-8.9) K/mcL Lymphocytes # 0.8 (0.6-4.6) K/mcL Monocytes # 0.3 (0.0-1.3) K/mcL Eosinophils # 0.1 (0.0-0.6) K/mcL Basophils # 0.0 (0.0-0.2) K/mcL Immature Plt Fraction 3.2 (1.1-6.1) % Percent Retic (1.6-2.8) % Immature Retic Fraction (11.0-38.0) % Retic Hgb Equivalent (28.61-36.33) pg APTT (26.0-36.0) Seconds Sodium 139 (136-145) mEq/L Potassium 4.5 (3.5-4.5) mEq/L Chloride 109 (98-109) mEq/L Carbon Dioxide 23 (19-29) mEq/L BUN 13 (8-26) mg/dL Creatinine 0.83 (0.72-1.25) mg/dL Est GFR ( Amer) > 60 (> 60) Est GFR (Non-Af Amer) > 60 (> 60) BUN/Creatinine Ratio 16 (6-26) Glucose 120 H (70-99) mg/dL POC Glucose 111 H (58-89) Calculated Osmolality 289 (280-300) Calcium 9.5 (8.6-10.8) mg/dL Phosphorus (2.3-4.7) mg/dL Magnesium (1.6-2.6) mg/dL Iron (65-175) mcg/dL % Saturation (20-55) % Transferrin (174-364) mg/dL Total Bilirubin (0.2-1.2) mg/dL Direct Bilirubin (0.0-0.5) mg/dL Indirect Bilirubin (0.0-1.2) mg/dL AST (5-34) Units/L ALT (0-55) Units/L Alkaline Phosphatase (38-126) Units/L Ammonia (18-72) mcmol/L Troponin I (0-0.03) ng/mL Serum Total Protein (6.0-8.3) g/dL Albumin (3.5-5.0) g/dL Globulin (2.4-3.5) g/dL Albumin/Globulin Ratio (1.1-2.2) Vitamin B12 (213-816) pg/mL TSH (0.350-4.840) mcIU/mL Urine Color (Yellow) Urine Clarity (Clear) Urine pH (5.0-8.0) pH Units Ur Specific [place] (1.010-1.025) Urine Protein (Neg-Trace) mg/dL Urine Glucose (UA) (Normal) mg/dL Urine Ketones (Negative) mg/dL Urine Blood (Negative) Urine Nitrite (Negative) Urine Bilirubin (Negative) Urine Urobilinogen (Normal) mg/dL Ur Leukocyte Esterase (Negative) Ur Culture Indicated? (NO) Urine Creatinine mg/dL Protein/Creatinin Ratio (0-0.20) mg/mg Urine Total Protein (1-14) mg/dL Urine Opiates Screen (Vqsuto=935) ng/mL Ur Barbiturates Screen (Btzuth=183) ng/mL Ur Phencyclidine Scrn (Cutoff=25) ng/mL Ur Amphetamines Screen (Fozvuo=7379) ng/mL U Benzodiazepines Scrn (Rjseid=181) ng/mL Urine Cocaine Screen (Cutoff= 300) ng/mL U Marijuana (THC) Screen (Cutoff = 50) ng/mL
[2016-08-07 16:18] VITALS: BP 157/90
== END 2016-08-07 19:45 | disposition home health service (06) ==
LOC: EMEROO 10:14 → 2NNU 10:14 → SUATTDRO 14:03 → 2NNU 16:00
PROVIDERS: ADMIT Internal Medicine; ATTEND Internal Medicine

== ENCOUNTER 2017-01-01 12:53 | Observation (INO) ==
--- NOTE | 2017-01-01 13:09 | Emergency Department Note ---
Disposition Clinical Impression: Chest pain Qualifiers: Chest pain type: unspecified Qualified Code(s): R07.9 - Chest pain, unspecified Disposition: Admitted As Inpatient Condition: Fair Referrals: NO,PCP [Primary Care Provider] - Forms: ED Satisfaction Letter Time of Disposition: 14:43 Chest Pain HPI - General Chief Complaint: ED Chest Pain Stated Complaint: Chest pain Time Seen by Provider: 01/01/17 13:05 Source: patient, EMS Limitations: no limitations Vital Signs Reviewed: Yes Nursing Notes Reviewed: Yes - History of Present Illness HPI Narrative: Patient is a 61-year-old male who presents to [facility] ED with a chief complaint of chest pain. States his symptoms started last night. At that time, he took for full dose aspirin and states the pain did get better with this. It then came back. States he does feel nauseous and has dry heaves. However he does chronically have nausea and takes Phenergan at home. Past medical history significant for triple bypass surgery as well as prior myocardial infarction. Also has atrial pacemaker in place. Patient follows with spanish translator Dr. Joshi. His last appointment was May of last year and he is due to see her again in February. His last stress test was over one year ago. Past medical history significant for borderline diabetes, hypertension, hyperlipidemia, CAD, sick sinus syndrome. Pt complaint: chest pain Onset (ago): hour(s) Duration: constant Onset: during rest Pain Location: substernal Severity: severe Severity scale (1-10): 9 Quality: tightness, aching Pain Radiation: none Improves with: nothing Worsens with: nothing Associated symptoms: Reports: nausea, vomiting, diaphoresis. Denies: dyspnea, fever, cough Treatments prior to arrival chest pain: aspirin - Related Data Home Medications Medication Instructions Recorded Confirmed Levothyroxine [Synthroid] 50 mcg PO QAM 04/08/15 01/01/17 Omeprazole [PriLOSEC] 40 mg PO DAILY 04/08/15 01/01/17 Pravastatin Sodium [Pravachol] 40 mg PO DAILY 04/08/15 01/01/17 Ropinirole HCl [Requip Xl] 4 mg PO HS 04/08/15 01/01/17 Promethazine [Phenergan] 25 mg PO Q6H PRN 12/03/15 01/01/17 Gabapentin [Neurontin] 300 mg PO TID 08/03/16 01/01/17 Oxycodone HCl 10 mg PO Q6H PRN 08/03/16 01/01/17 Tizanidine HCl 2 mg PO TID PRN 08/03/16 01/01/17 Fluticasone Propionate Nasal 1 spray NS DAILY 01/01/17 01/01/17 [Flonase] Previous Rx's Medication Instructions Recorded Aspirin 81 mg PO DAILY #30 tab.chew 08/06/16 amLODIPine [Norvasc] 5 mg PO DAILY #30 tablet 08/07/16 Allergies Allergy/AdvReac Type Severity Reaction Status Date / Time codeine Allergy Mild Itching Verified 04/08/15 09:52 Penicillins AdvReac Intermediate COMA Verified 04/08/15 09:52 nitroglycerin AdvReac Mild LOW BLOOD Verified 08/02/15 03:33 PRESSURE NITRATES Allergy Mild Itching Uncoded 04/08/15 09:52 NUBAIN Allergy Mild Itching Uncoded 08/02/15 03:33 All systems ED: reviewed and negative except as stated. Chest Pain PMH - Past Medical History Medical history: Reports: cirrhosis, CHF, coronary artery disease, CVA, diabetes , GERD, hypertension, myocardial infarction, thyroid disease, other Surgical history: Reports: appendectomy, cholecystectomy, coronary bypass (CABG) , orthopedic, other, pacemaker/AICD Psychiatric history: Reports: no psych history - Social History Smoking Status: Never smoker Alcohol use: Reports: none Drug use: Reports: none Physical Exam - General Limitations: no limitations General appearance: alert, in no apparent distress - Head Head exam: atraumatic, normocephalic, normal inspection - Eye Eye exam: Present: normal appearance, PERRL, EOMI - ENT ENT exam: normal exam, normal oropharynx, mucous membranes moist - Neck Neck exam: Present: normal inspection, full ROM, trachea midline - Chest Chest inspection: Present: normal inspection, symmetric chest wall rise - Respiratory Respiratory exam: Present: normal lung sounds bilaterally - Cardiovascular Cardiovascular exam: Present: normal rhythm, bradycardia - Abdominal Exam Abdominal exam: Present: soft, Non-Tender. Absent: tenderness, distention, guarding, rebound, rigidity - Extremities Exam Extremities exam: Present: normal inspection, full ROM. Absent: tenderness, pedal edema - Back Exam Back exam: Present: normal inspection, full ROM. Absent: tenderness - Neurological Exam Neurological exam: Present: alert - Psychiatric Psychiatric exam: Present: normal affect, normal mood - Skin Skin exam: Present: warm, dry, intact, normal color Course Course Narrative: Patient seen and examined. Chest pain with significant cardiac history. Since his stress test as been over a year ago and he has not seen his spanish translator since May, we will likely admit for serial troponins and observation. Cardiac workup ordered as well as IV Zofran and morphine for nausea and pain. - Reevaluation(s) Reevaluation #1: Lab work shows mild AK I. Troponin 0.00. EKG unremarkable. Chest x-ray unremarkable. Patient has a heart score of 5 which puts him at moderate risk. I spoke with hospitalist Lacey Thompson who has accepted patient for admission. Time: 14:40 Vital Signs Temperature 98.6 F 01/01/17 12:55 Pulse Rate 51 01/01/17 12:55 Respiratory Rate 16 01/01/17 12:55 Blood Pressure 105/61 01/01/17 12:55 O2 Sat by Pulse Oximetry 98 01/01/17 12:55 Temperature 98.6 F 01/01/17 12:55 Pulse Rate 51 01/01/17 12:55 Respiratory Rate 16 01/01/17 12:55 Blood Pressure 105/61 01/01/17 12:55 O2 Sat by Pulse Oximetry 100 01/01/17 13:09 Oxygen Delivery Oxygen Delivery Room Air Chest Pain - Medical Records Medical records reviewed: Yes I reviewed the patient's medical records. - Lab Data Lab results reviewed: Yes I reviewed the patient's lab results. Result diagrams: 01/01/17 13:05 01/01/17 13:23 Lab Results 01/01/17 01/01/17 01/01/17 Range/Units 13:05 13:23 13:23 WBC 4.9 (4.3-11.1) K/mcL RBC 3.73 L (4.19-5.50) M/mcL Hgb 11.1 L (12.9-16.9) g/dL Hct 34.8 L (37.5-50.1) % MCV 93.3 (83.0-100.0) fL MCH 29.8 (28.0-33.3) pg MCHC 31.9 (31.6-35.5) g/dL RDW 14.6 H (11.5-14.5) % Plt Count 120 L (140-400) K/mcL MPV 10.9 (9.4-12.4) fL Immature Gran % 0.8 (0-4) % Seg Neutrophils % 58.5 % Lymphocytes % 29.4 % Monocytes % 6.8 % Eosinophils % 4.1 % Basophils % 0.4 % Neutrophils # 2.9 (1.6-8.9) K/mcL Lymphocytes # 1.4 (0.6-4.6) K/mcL Monocytes # 0.3 (0.0-1.3) K/mcL Eosinophils # 0.2 (0.0-0.6) K/mcL Basophils # 0.0 (0.0-0.2) K/mcL Immature Plt Fraction 4.2 (1.1-6.1) % PT 11.3 (9.4-12.1) Seconds INR 1.0 APTT 31.1 (26.0-36.0) Seconds Sodium 140 (136-145) mEq/L Potassium 4.7 H (3.5-4.5) mEq/L Chloride 108 (98-109) mEq/L Carbon Dioxide 22 (19-29) mEq/L BUN 23 (8-26) mg/dL Creatinine 1.36 H (0.72-1.25) mg/dL Est GFR ( Amer) > 60 (> 60) Est GFR (Non-Af Amer) 53 L (> 60) BUN/Creatinine Ratio 17 (6-26) Glucose 158 H (70-99) mg/dL Calculated Osmolality 297 (280-300) Calcium 9.0 (8.6-10.8) mg/dL Troponin I (0-0.03) ng/mL 01/01/17 Range/Units 13:23 WBC (4.3-11.1) K/mcL RBC (4.19-5.50) M/mcL Hgb (12.9-16.9) g/dL Hct (37.5-50.1) % MCV (83.0-100.0) fL MCH (28.0-33.3) pg MCHC (31.6-35.5) g/dL RDW (11.5-14.5) % Plt Count (140-400) K/mcL MPV (9.4-12.4) fL Immature Gran % (0-4) % Seg Neutrophils % % Lymphocytes % % Monocytes % % Eosinophils % % Basophils % % Neutrophils # (1.6-8.9) K/mcL Lymphocytes # (0.6-4.6) K/mcL Monocytes # (0.0-1.3) K/mcL Eosinophils # (0.0-0.6) K/mcL Basophils # (0.0-0.2) K/mcL Immature Plt Fraction (1.1-6.1) % PT (9.4-12.1) Seconds INR APTT (26.0-36.0) Seconds Sodium (136-145) mEq/L Potassium (3.5-4.5) mEq/L Chloride (98-109) mEq/L Carbon Dioxide (19-29) mEq/L BUN (8-26) mg/dL Creatinine (0.72-1.25) mg/dL Est GFR ( Amer) (> 60) Est GFR (Non-Af Amer) (> 60) BUN/Creatinine Ratio (6-26) Glucose (70-99) mg/dL Calculated Osmolality (280-300) Calcium (8.6-10.8) mg/dL Troponin I 0.00 (0-0.03) ng/mL - Radiology Data Radiology results reviewed: Yes I reviewed the patient's radiology results. Chest X-Ray 01/01/17 13:06 IMPRESSION: 1. No active pulmonary disease. D/ / Kev Nguyễn MD / Kev Nguyễn MD Interpreting Provider: Kev Nguyễn MD - EKG Data EKG attestation: Yes I reviewed and interpreted this EKG. EKG results narrative: EKG done at 1254 shows electronic atrial paced rhythm with a rate of 49 bpm. Right bundle branch block present. No acute ST elevation or depression. Findings unchanged from prior EKG done 08/03/2016. Heart Score - Score History: Moderately Suspicious EKG: Non Specific repolarisation Disturbance Age: 45-65 Risk Factors: Equal/Greater than 3 risk factor or history of atherosclerotic disease Troponin: Less than normal limit HEART Score Total: 5
[2017-01-01] MEDS ORDERED: Ondansetron 4 MG/2 ML VIAL IVP ONE ×2 (13:11→13:44)
[2017-01-01 13:20] LABS: Basophils % 0.4 %; Eosinophils # 0.2 K/mcL (0.0-0.6); Eosinophils % 4.1 %; Hematocrit 34.8 % (37.5-50.1); Hemoglobin 11.1 g/dL (12.9-16.9); Immature Granulocytes % 0.8 % (0-4); Immature Platelets 4.2 % (1.1-6.1); Lymphocytes # 1.4 K/mcL (0.6-4.6); Lymphocytes % 29.4 %; Mean Corpuscular HGB Conc 31.9 g/dL (31.6-35.5); Mean Corpuscular Hemoglobin 29.8 pg (28.0-33.3); Mean Corpuscular Volume 93.3 fL (83.0-100.0); Mean Platelet Volume 10.9 fL (9.4-12.4); Monocytes # 0.3 K/mcL (0.0-1.3); Monocytes % 6.8 %; Neutrophils # 2.9 K/mcL (1.6-8.9); Platelet Count 120 K/mcL (140-400); Red Blood Count 3.73 M/mcL (4.19-5.50); Red Cell Distribution Width 14.6 % (11.5-14.5); Segmented Neutrophils % 58.5 %
[2017-01-01 13:31] LABS: Prothrombin Time 11.3 Seconds (9.4-12.1)
--- NOTE | 2017-01-01 13:48 | Emergency Department Note ---
START Narrative - START START: I examined this patient and my medical decision-making was reviewed with the FILM DEVELOPING MACHINE OPERATOR/PA/Advanced Practice Nurse/Resident Physician. I agree with the documented findings, disposition and treatment plan as described except to the extent set forth below. ED attending note: Patient seen with emergency medicine resident Dr. FUENTES. Please see a copy of his note for details of the H&P, evaluation, management and disposition of this patient. 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 Presents with chest pain since last night intermittently. EKG shows nonspecific ST-T changes. Heart score is 6 admission anticipated. Provided 35 minutes of critical care service for this patient. Chest x-ray troponin and other screening labs pending. Patient got aspirin set is allergic to nitroglycerin. Disposition pending
[2017-01-01 13:50] LABS: BUN/Creatinine Ratio 17 (6-26); Blood Urea Nitrogen 23 mg/dL (8-26); Carbon Dioxide 22 mEq/L (19-29); Chloride 108 mEq/L (98-109); Glucose 158 mg/dL (70-99); Osmolality,Calculated 297 (280-300); Potassium 4.7 mEq/L (3.5-4.5); Sodium 140 mEq/L (136-145); eGFR For African Americans > 60 (> 60); eGFR For Non-African Americans 53 (> 60)
[2017-01-01] MEDS ORDERED: *HR* Morphine 2 MG/ML SYRINGE IVP ONE (13:57)
[2017-01-01 14:13] LABS: Activated Partial Thrombo Time 31.1 Seconds (26.0-36.0)
[2017-01-01] MEDS ORDERED: Acetaminophen 325 MG TABLET PO PRN (14:40)
[2017-01-01] MEDS ORDERED: *HR* Promethazine 25 MG/ML VIAL IVP ONE (14:53)
--- NOTE | 2017-01-01 16:05 | Internal Med History&Physical ---
<Lacey Thompson - Last Filed: 01/01/17 17:21> Date of Encounter: 01/01/17 Time of Encounter: 16:04 Assessment and Plan (1) Chest pain Current visit: Yes Status: Acute Patient experienced chest pain while at rest midsternal nonradiating dull pain relieved with some aspirin. He does have a cardiac history for CABG 91 stress test approximately 1 year ago showed no ischemic changes history of hypertension diabetes first troponin are 0 we will continue to cycle troponins We will continue with aspirin and statin. 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 We will continue with aspirin and statin (4) Hypothyroid Current visit: No Status: Chronic 1 we will obtain TSH continue with Synthroid Qualifiers: Hypothyroidism type: unspecified Qualified Code(s): E03.9 - Hypothyroidism , unspecified (5) OLEG (acute kidney injury) Current visit: Yes Status: Acute 1 creatinine is elevated at 1.36 appears baseline is around 1. We will continue to monitor creatinine 2 avoid nephrotoxins 3 monitor intake output daily weights (6) DVT prophylaxis Current visit: No Status: Acute Heparin subcutaneous Internal Medicine - H&P: HPI Chief complaint: CP Admitted From: Emergency Dept Plans for Post Hospital Care: Home History of present illness: Mr. Grewal is a 61 year old male past medical history of CAD CABG sick sinus syndrome diabetes hypertension CVA gastroparesis. Patient has a past history of coronary disease CABG and 1990 he underwent a catheter in 2011 with no stent placement he also had a stress test approximate one year ago which was negative for any ischemia. With this a.m. patient awoke with mid sternal chest pressure which she described as dull nonradiating states he took 2 full strength aspirin which did ease the pain and he went back to sleep according to patient if the pain occurred again approximately 45 minutes later again he took 2 full strength aspirin which eased the pain at that time he went to the ER for evaluation. According to ER records patient's lab work did reveal some AK with a creatinine of 1.36 with GFR was 53 his troponin was 0 EKG showed atrial paced rhythm with right bundle branch block he was nauseated and given antibiotics which relieved his nausea. He has been admitted for further workup and evaluation. Presently patient denies any chest pain or nausea. Patient states he has chronic nausea and apparently he has gastroparesis. He takes Phenergan for his nausea. His lung sounds are clear heart sounds are regular S1-S2 no clicks rubs gallops murmurs noted no lower extremity noted abdomen soft and nontender he is hemodynamically stable this time review this case with Dr. Peterson agrees with plan Past Med Surg Social Fam HX - Past Medical History Medical history: cirrhosis, CHF, coronary artery disease, CVA, diabetes, GERD, hypertension, myocardial infarction, thyroid disease, other Psychiatric history: no psych history - Past Surgical History Surgical History: appendectomy, cholecystectomy, coronary bypass (CABG), orthopedic, other, pacemaker/AICD - Social History Smoking Status: Never smoker Smokeless Tobacco Status: No Alcohol use: none Drug use: none - Family History Mother Living Status: Hx Family Cardiac Disorders: No Internal Medicine - H&P: Meds Levothyroxine [Synthroid] 50 mcg PO QAM 04/08/15 [History] Omeprazole [PriLOSEC] 40 mg PO DAILY 04/08/15 [History] Pravastatin Sodium [Pravachol] 40 mg PO DAILY 04/08/15 [History] Ropinirole HCl [Requip Xl] 4 mg PO HS 04/08/15 [History] Promethazine [Phenergan] 25 mg PO Q6H PRN 12/03/15 [History] Gabapentin [Neurontin] 300 mg PO TID 08/03/16 [History] Oxycodone HCl 10 mg PO Q6H PRN 08/03/16 [History] Tizanidine HCl 2 mg PO TID PRN 08/03/16 [History] Aspirin 81 mg PO DAILY #30 tab.chew 08/06/16 [Rx] amLODIPine [Norvasc] 5 mg PO DAILY #30 tablet 08/07/16 [Rx] Fluticasone Propionate Nasal [Flonase] 1 spray NS DAILY 01/01/17 [History] Allergies codeine Allergy (Mild, Verified 04/08/15 09:52) Itching Penicillins Adverse Reaction (Intermediate, Verified 04/08/15 09:52) COMA nitroglycerin Adverse Reaction (Mild, Verified 08/02/15 03:33) LOW BLOOD PRESSURE pt states his blood pressure drops to fast and nitro makes him pass out. NITRATES Allergy (Mild, Uncoded 04/08/15 09:52) Itching NUBAIN Allergy (Mild, Uncoded 08/02/15 03:33) Itching pt states he had a bad instant reaction. All Systems PM: A 10-system review of systems was performed and is negative for pertinent findings except as documented above in the HPI. - Constitutional Constitutional: falls, no chills, no fever(s), no night sweats - EENT Eyes: no change in vision, no discharge, no pain, no photophobia Nose, mouth and throat: no dysphagia, no nasal discharge, no neck pain, no sore throat - Cardiovascular Cardiovascular ROS IM: chest pain, no diaphoresis, no dyspnea, no lightheadedness, no palpitations, no syncope - Respiratory Respiratory: no cough, no dyspnea, no wheezing, no excessive phlegm production - Gastrointestinal Gastrointestinal: nausea, vomiting - Musculoskeletal Musculoskeletal ROS IM: no numbness, no tingling - Integumentary Integumentary IM: no rash, no unusual bruising - Neurological Neurological ROS: no confusion, no convulsions, no focal weakness, no numbness, no tingling, no tremor(s) - Hematologic/Lymphatic Hematologic/Lymphatic: no easy bruising - Constitutional Vitals: Temp Pulse Resp BP Pulse Ox 98.6 F 51 18 123/61 100 01/01/17 12:55 01/01/17 12:55 01/01/17 15:11 01/01/17 15:11 01/01/17 13:09 General appearance: Present: A&O X 3, obese - Head Head exam: Present: atraumatic, normocephalic - Eye Eye exam: Present: PERRL, conjuntiva pink, sclera anicteric Pupils: Present: PERRL - Neck Neck exam general surgery: Present: supple, trachea midline. Absent: lymphadenopathy - Respiratory Respiratory exam: Present: CTAB. Absent: accessory muscle use, rales, rhonchi, wheezes - Cardiovascular Cardiovascular exam: Present: RRR, +S1, +S2. Absent: diastolic murmur, gallop, rubs, systolic murmur - GI/Abdominal GI/Abdominal exam: Present: normal bowel sounds, soft, no peritoneal signs. Absent: distended, tenderness - Extremities Exam Extremities exam: Present: warm, radial pulses palpable and symetrical. Absent : calf tenderness, cyanotic, pedal edema - Neurological Exam Neurological exam: Present: CN II-XII intact, oriented X3, no focal deficits. Absent: pronater drift, facial droop, speech deficit - Skin Skin exam: Present: dry, intact Internal Med - H&P Results - Labs CBC & Chem 7: 01/01/17 13:05 01/01/17 13:23 - EKG Data EKG comments: 01/01/17 17:10 Atrially paced with right bundle-branch block - Diagnostic Studies Other Images Additional comments: Chest X-Ray 01/01/17 13:06 IMPRESSION: 1. No active pulmonary disease. D/ / Kev Nguyễn MD / Kev Nguyễn MD Interpreting Provider: Kev Nguyễn MD <Francisco Peterson - Last Filed: 01/01/17 18:14> Date of Encounter: 01/01/17 Internal Medicine - H&P: HPI History of present illness: Mr. Grewal is a 61 year old male All Systems PM: A 10-system review of systems was performed and is negative for pertinent findings except as documented above in the HPI. - Constitutional Vitals: Temp Pulse Resp BP Pulse Ox 97.7 F 55 17 116/63 98 01/01/17 16:29 01/01/17 16:29 01/01/17 16:29 01/01/17 16:29 01/01/17 16:31 Internal Med - H&P Results - Labs CBC & Chem 7: 01/01/17 13:05 01/01/17 13:23 - Attending Attestation I examined this patient and my medical decision-making was reviewed with the Advanced Practice Nurse. I agree with the documented findings, disposition and treatment plan as described except to the extent set forth below. Patient currently tells me that he has chest pain substernal pressure-like, 8. Chest exam reveals well-healed sternotomy scar, nontender to palpation. Heart is bradycardic and regular S1-S2. Plan: Unstable angina with chest pain at rest likely secondary to ACS. I will start the patient on heparin drip. He cannot take nitrates due to allergy. Continue with aspirin. Hold beta joo due to bradycardia. Follow-up with cardiology in the morning. Trend troponin. Continue with heart monitor.
[2017-01-01] MEDS ORDERED: *HR* OxyCODONE Immed Rel 5 MG TABLET PO PRN (16:42)
[2017-01-01] MEDS ORDERED: *HR* Heparin 5,000 UNIT/ML VIAL SQ SCH (18:00)
[2017-01-01] MEDS ORDERED: *HR* Heparin 5,000 UNIT/ML VIAL IVP ONE (18:04)
[2017-01-01] MEDS ORDERED: *HR* Heparin 5,000 UNIT/ML VIAL IVP PRN ×2 (18:04)
[2017-01-01] MEDS ORDERED: Heparin 25,000 UNIT/500 ML D5W 25,000 UNIT/500 ML MLS IVC SCH (18:15)
[2017-01-01] MEDS: *HR* Promethazine 25 MG/ML VIAL IVP PRN (18:21)
[2017-01-01 18:50] LABS: Hematocrit 30.9 % (37.5-50.1); Hemoglobin 9.7 g/dL (12.9-16.9); INR 1.1; Mean Corpuscular HGB Conc 31.4 g/dL (31.6-35.5); Mean Corpuscular Hemoglobin 29.4 pg (28.0-33.3); Mean Corpuscular Volume 93.6 fL (83.0-100.0); Mean Platelet Volume 11.3 fL (9.4-12.4); Platelet Count 110 K/mcL (140-400); Prothrombin Time 12.1 Seconds (9.4-12.1); Red Cell Distribution Width 14.6 % (11.5-14.5)
[2017-01-01 18:53] LABS: Activated Partial Thrombo Time 29.7 Seconds (26.0-36.0)
[2017-01-01] MEDS: *HR* Morphine 2 MG/ML SYRINGE IVP PRN (19:55)
[2017-01-01] MEDS ORDERED: *HR* Morphine 2 MG/ML SYRINGE IVP SCH (20:00)
[2017-01-01] MEDS: tiZANidine 4 MG TABLET PO PRN (21:08)
[2017-01-01] MEDS: Gabapentin 300 MG CAPSULE PO SCH (21:08)
[2017-01-01] MEDS: rOPINIRole 1 MG TABLET PO SCH (21:08)
[2017-01-02 00:49] LABS: Basophils % 0.6 %; Eosinophils # 0.2 K/mcL (0.0-0.6); Eosinophils % 4.6 %; Hematocrit 32.1 % (37.5-50.1); Hemoglobin 9.7 g/dL (12.9-16.9); Immature Granulocytes % 1.5 % (0-4); Lymphocytes # 1.3 K/mcL (0.6-4.6); Lymphocytes % 38.5 %; Mean Corpuscular HGB Conc 30.2 g/dL (31.6-35.5); Mean Corpuscular Hemoglobin 28.2 pg (28.0-33.3); Mean Corpuscular Volume 93.3 fL (83.0-100.0); Mean Platelet Volume 11.5 fL (9.4-12.4); Monocytes # 0.3 K/mcL (0.0-1.3); Monocytes % 8.9 %; Neutrophils # 1.5 K/mcL (1.6-8.9); Red Blood Count 3.44 M/mcL (4.19-5.50); Red Cell Distribution Width 14.4 % (11.5-14.5); Segmented Neutrophils % 45.9 %
[2017-01-02 00:50] LABS: Platelet Count 94 K/mcL (140-400)
[2017-01-02 01:08] LABS: BUN/Creatinine Ratio 15 (6-26); Blood Urea Nitrogen 20 mg/dL (8-26); Calcium 8.9 mg/dL (8.6-10.8); Carbon Dioxide 25 mEq/L (19-29); Chloride 108 mEq/L (98-109); Cholesterol 125 mg/dL (< 200); Glucose 172 mg/dL (70-99); HDL Cholesterol 41 mg/dL (40-59); LDL Cholesterol,Calculated 63 mg/dL (0-99); Magnesium 1.5 mg/dL (1.6-2.6); Osmolality,Calculated 293 (280-300); Potassium 4.9 mEq/L (3.5-4.5); Sodium 138 mEq/L (136-145); Triglycerides 107 mg/dL (< 150); eGFR For African Americans > 60 (> 60); eGFR For Non-African Americans 54 (> 60)
[2017-01-02 01:23] LABS: Platelet Estimate Decreased (Normal)
[2017-01-02] MEDS: *HR* Promethazine 25 MG/ML VIAL IVP PRN ×3 (03:02→23:56)
[2017-01-02] MEDS: *HR* Morphine 2 MG/ML SYRINGE IVP PRN (04:38)
[2017-01-02] MEDS: Ondansetron 4 MG/2 ML VIAL IVP PRN ×2 (06:35→16:39)
[2017-01-02] MEDS: amLODIPine 5 MG TABLET PO SCH (08:43)
[2017-01-02] MEDS: Aspirin 81 MG TAB.CHEW PO SCH (08:43)
[2017-01-02] MEDS: Gabapentin 300 MG CAPSULE PO SCH ×3 (08:44→19:53)
[2017-01-02] MEDS: Fluticasone Propionate Nasal 50 MCG/SPRAY BOTTLE NS SCH (08:44)
--- NOTE | 2017-01-02 10:51 | Cardiology Consult Note ---
Date of Encounter: 01/02/17 Time of Encounter: 09:30 Assessment and Plan (1) Atypical chest pain Current Visit: Yes Status: Chronic Per cardiology: -Atypical chest pain that occured at rest. States feels like something sitting on chest. Currently rates pain 9/. -On heparin drip, not on nitroglycerin due to allergy. ON asa, statin. -Patient follows with Dr.Jennifer Joshi in outpatient setting. -Patient states is intolerant to beta blockers, ranexa, nitroglycerin, or long acting nitrates. -ECG with no ishcemic changes, unchanged from previous ECG 07/2016. -11/2015 Nuclear stress test negative for ischemia or infarct. -07/2016 Echo with LVEF 55-60%, atypical septal motion consistent with bundle branch block, right ventricle appears midly dilated, normal RV function, mild TR , mild PH, interatrial septum is mildly aneurysmal, no evidence of intracardiac shunting with agitated saline contrast, all wall segments with normal motion. -Patient has chronic chest pain, however states this episode was worse than his usual chest pain. -Troponins negative x3. -Last [facility] 2011 with proximal LAD 100%, luminal irregularities mid to distal LAD , 20-30% proximal to mid OM, luminal irregularities in circumflex, 100% proximal RCA, [place] to LAD patent, SVG to mid PDA occluded, good quality collaterals from this septal to mid PL were present. -Echo 01/02/17 with LVEF 55-60%, RV mildly dilated with normal function, mild to moderately dilated left atrium, atypical septal motion consistent with paced rhythm, NO evidence of PFO, mild TR, mild PH. -Unable to add beta joo, ranexa, nitro, or long acting nitrate due to patient is intolerant. -Chest pain atypical for cardiac concern. Per discussion with Dr.John Joshi, cardiology will sign off and will follow in outpatient setting. Follow up set. (2) CAD (coronary artery disease) Current Visit: Yes Status: Chronic Per cardiology: -KNown CAD with CABG 1989. -LAst [facility] 2011 as above. -ON asa, statin, and [place] channel joo. -Pateint reports is intolerant to beta joo. -Of note, patient has dual chamber pacemaker and last device check 05/2016 with normal function, battery longevity greater than 5 years. Qualifiers: Coronary Disease-Associated Artery/Lesion type: [place] artery [place] vs. transplanted heart: [place] heart Associated angina: with unspecified angina Qualified Code(s): I25.119 - Atherosclerotic heart disease of [place] coronary artery with unspecified angina pectoris (3) Hypertension Current Visit: No Status: Chronic Per cardiology: -KNown hypertension. -BPs 120-150s systolic. -On calcium channel joo. -Can consider further titration of anti-hypertensives. Qualifiers: Hypertension type: essential hypertension Qualified Code(s): I10 - Essential (primary) hypertension (4) OLEG (acute kidney injury) Current Visit: Yes Status: Acute Per cardiology: -Creatinine on admission 1.36. -Baseline creatinines mostly 0.8-1.1. -Management per primary service. (5) Hypomagnesemia Current Visit: Yes Status: Acute Per cardiology: -Mg 1.5. -Will order Mg rider. -Will re-check Mg in am. Discussion w patient/family: The assessment and plan as outlined above was discussed with the patient who expressed understanding and agreement. All questions were answered. Thank you for involving us in the care of your patient. Please call with any questions. Discussed and reviewed with Dr.John Joshi. History of Present Illness Consult date: 01/01/17 Requesting physician: Lacey Thompson Consult reason: chest pain Chief complaint: chest pain History of present illness: Mr. Grewal is a 61 year old male with a relevant past medical history of CAD s/ p CABG x3 1989, hyperlipidemia, tachy-almita syndrome with permanent pacemaker, HTN, liver cirrhosis, chronic pancreatitis, PVD, pericarditis, CVA, CHF, anemia. Patient presents to [facility] with complaints of chest pain. Patient has chronic chest pain. Patient states pain started at rest and was worsened with excertion. Patient states it felt like something sitting on his chest. Patient states this is similar to his chronic pain, but this episode was worse than his usual pain. Patient states he took 4 baby aspirin at home and it did not relieve pain. Patient states he is allergic to nitroglcyerin. Patient complains of current chest pain, rates 9/10. Patient states excertion makes pain worse. Patient states nothing makes pain better. Patient states pain is midsternal with no radiation. Past Med Surg Social Fam HX - Past Medical History Attestation: Yes The following information was validated with the patient. Source: patient, old records reviewed Medical history: cirrhosis, CHF, coronary artery disease, CVA, diabetes, GERD, hypertension, myocardial infarction, thyroid disease, other Psychiatric history: no psych history - Past Surgical History Surgical History: appendectomy, cholecystectomy, coronary bypass (CABG), orthopedic, other, pacemaker/AICD - Social History Smoking Status: Never smoker Smokeless Tobacco Status: No Alcohol use: none Drug use: none - Family History Mother Living Status: Hx Family Cardiac Disorders: No Medications and Allergies Levothyroxine [Synthroid] 50 mcg PO QAM 04/08/15 [History] Omeprazole [PriLOSEC] 40 mg PO DAILY 04/08/15 [History] Pravastatin Sodium [Pravachol] 40 mg PO DAILY 04/08/15 [History] Ropinirole HCl [Requip Xl] 4 mg PO HS 04/08/15 [History] Promethazine [Phenergan] 25 mg PO Q6H PRN 12/03/15 [History] Gabapentin [Neurontin] 300 mg PO TID 08/03/16 [History] Oxycodone HCl 10 mg PO Q6H PRN 08/03/16 [History] Tizanidine HCl 2 mg PO TID PRN 08/03/16 [History] Aspirin 81 mg PO DAILY #30 tab.chew 08/06/16 [Rx] amLODIPine [Norvasc] 5 mg PO DAILY #30 tablet 08/07/16 [Rx] Fluticasone Propionate Nasal [Flonase] 1 spray NS DAILY 01/01/17 [History] Allergies morphine Allergy (Intermediate, Verified 01/02/17 04:52) Hives codeine Allergy (Mild, Verified 04/08/15 09:52) Itching Penicillins Adverse Reaction (Intermediate, Verified 04/08/15 09:52) COMA nitroglycerin Adverse Reaction (Mild, Verified 08/02/15 03:33) LOW BLOOD PRESSURE pt states his blood pressure drops to fast and nitro makes him pass out. NITRATES Allergy (Mild, Uncoded 04/08/15 09:52) Itching NUBAIN Allergy (Mild, Uncoded 08/02/15 03:33) Itching pt states he had a bad instant reaction. All Systems Review: A 10-system review of systems was performed and is negative for pertinent findings except as documented above in the HPI. - Cardiovascular Cardiovascular: as per HPI, chest pain at rest Physical Examination Vital Signs, Last 4 Hours Temp Pulse Resp BP Pulse Ox 01/02/17 10:39 97.9 F 51 14 162/78 100 01/02/17 08:05 97.8 F 50 15 147/77 100 General: Conversant, No Apparent Distress HEENT: Atraumatic, Normocephaly, Mucus Membranes Moist Neck: No JVD, Normal carotid pulses Cardiac: Reg Rate and Rhythm, Normal S1 and S2, No Murmur Lungs: Normal Breath Sounds, No Wheeze, Rales, Rhonchi Neuro: Alert and responsive, No focal deficits noted Abdomen: Soft, Non-Tender Skin: No rashes noted on visualized skin Musculoskeletal: No Chest Wall Tenderness Extremities: No Clubbing, No Cyanosis, No Edema, Normal Pulses Results 01/02/17 00:29 01/02/17 00:29 Lab Results Impressions Active Medications Acetaminophen (Tylenol) 650 mg PO Q6HR PRN PRN Reason: Mild Pain (1-3) Stop: 07/03/17 14:41 Amlodipine Besylate (Norvasc) 5 mg PO DAILY [facility] PRN Reason: Protocol Stop: 07/04/17 09:01 Last Admin: 01/02/17 08:43 Dose: 5 mg Aspirin (Aspirin) 81 mg PO DAILY [facility] Stop: 07/04/17 09:01 Last Admin: 01/02/17 08:43 Dose: 81 mg Fluticasone Propionate (Flonase) 50 mcg NS DAILY [facility] PRN Reason: Protocol Stop: 07/04/17 09:01 Last Admin: 01/02/17 08:44 Dose: Not Given Gabapentin (Neurontin) 300 mg PO TID [facility] Stop: 07/03/17 21:01 Last Admin: 01/02/17 08:44 Dose: 300 mg Heparin Sodium (Porcine) (Heparin) 4,000 unit IVP Q6HR PRN PRN Reason: SEE COMMENTS Stop: 07/03/17 18:05 Heparin Sodium (Porcine) (Heparin) 2,000 unit IVP Q6H PRN PRN Reason: SEE COMMENTS Stop: 07/03/17 18:05 Heparin Sodium/Dextrose (Heparin 25,000 Unit/500 Ml D5w) 25,000 unit in 500 mls @ 19.996 mls/hr IVC .Q24H [facility]; 10.496 UNIT/KG/HR PRN Reason: Protocol Stop: 07/03/17 18:16 Last Titration: 01/02/17 05:18 Dose: 10.49 unit/kg/hr, 20 mls/hr Levothyroxine Sodium (Synthroid) 50 mcg PO DAILY@0630 [facility] Stop: 07/04/17 06:31 Last Admin: 01/02/17 06:17 Dose: 50 mcg Omeprazole (Prilosec) 40 mg PO DAILY@0730 [facility] Stop: 07/04/17 07:31 Last Admin: 01/02/17 06:17 Dose: 40 mg Ondansetron HCl (Zofran) 4 mg IVP Q8HR PRN PRN Reason: Nausea And Vomiting Stop: 07/03/17 14:41 Last Admin: 01/02/17 06:35 Dose: 4 mg Promethazine HCl (Phenergan) 25 mg IVP Q6HR PRN PRN Reason: Nausea And Vomiting Stop: 07/03/17 17:48 Last Admin: 01/02/17 08:48 Dose: 25 mg Ropinirole HCl (Requip) 4 mg PO HS [facility] Stop: 07/03/17 21:01 Last Admin: 01/01/17 21:08 Dose: 4 mg Simvastatin (Zocor) 20 mg PO HS [facility] Stop: 07/03/17 21:01 Last Admin: 01/01/17 21:08 Dose: 20 mg Tizanidine HCl (Zanaflex) 2 mg PO TID PRN PRN Reason: Muscle Spasm Last Admin: 01/01/17 21:08 Dose: 2 mg Chest X-Ray 01/01/17 13:06 IMPRESSION: 1. No active pulmonary disease. D/ / Kev Nguyễn MD / Kev Nguyễn MD Interpreting Provider: Kev Nguyễn MD Laboratory Tests 08/06/16 08/07/16 01/01/17 04:09 04:09 13:23 Hgb Potassium Creatinine 1.02 0.83 Troponin I 0.00 Triglycerides Cholesterol LDL Cholesterol, Calc HDL Cholesterol 01/01/17 01/02/17 01/02/17 18:21 00:29 00:29 Hgb 9.7 L Potassium Creatinine Troponin I 0.00 0.01 Triglycerides Cholesterol LDL Cholesterol, Calc HDL Cholesterol 01/02/17 00:29 Hgb Potassium 4.9 H Creatinine 1.35 H Troponin I Triglycerides 107 Cholesterol 125 LDL Cholesterol, Calc 63 HDL Cholesterol 41 - Imaging and Cardiology Chest Xray: report reviewed Echo: report reviewed - EKG Interpretation EKG results cardiology: personally reviewed (ECG paced rhyth, HR 49, Right bundle branch block.), other (Telemetry reviewed with average HR previous 12 hours not to be 53, sinus bradycardia with RBBB, intermittent pacing. PACs noted.) Consult Discharge Plan - Plan Referrals: Niko Knight MD [Primary Care Provider] -
[2017-01-02] MEDS ORDERED: Naloxone 0.4 MG/ML INJ IVP PRN (11:19)
[2017-01-02] MEDS ORDERED: Magnesium Sulfate 2 GM in D5% in Water 100 ML IVPB ONE (11:21)
[2017-01-02] MEDS: *HR* OxyCODONE Immed Rel 5 MG TABLET PO PRN ×2 (12:59→19:53)
[2017-01-02] MEDS: tiZANidine 4 MG TABLET PO PRN (16:30)
--- NOTE | 2017-01-02 19:15 | Internal Med Progress Note ---
Date of Encounter: 01/02/17 Time of Encounter: 14:30 - Assessment and plan (1) Chest pain Current Visit: No Status: Chronic Assessment and plan: Patient continues to have chronic chest pain. He has been seen and evaluated by cardiology who have cleared him for outpatient follow-up. Troponins negative , no ECG changes. Patient has an intolerance to most cardiac medications and refuses to try any medications that he is not on. Heparin drip stopped. We will continue to address his chronic pain. ITS Impressions Chest X-Ray 01/01/17 13:06 IMPRESSION: 1. No active pulmonary disease. D/ / Kev Nguyễn MD / Kev Nguyễn MD Interpreting Provider: Kev Nguyễn MD Echocardiogram with saline contrast impressions: LVEF 55-60%. Normal LV chamber size and wall thickness. Not all LV segments were well visualized, but overall systolic function is normal. Right ventricle appears mildly dilated in some views. Systolic function was normal. Mild to moderately dilated left atrium. Atypical septal motion consistent with paced rhythm. No evidence of PFO with agitated saline contrast. Mild tricuspid regurgitation. Mild pulmonary hypertension. Estimated RVSP is 36 mmHg. A device lead was visualized in the right atrium and right ventricle. Qualifiers: Chest pain type: unspecified Qualified Code(s): R07.9 - Chest pain, unspecified (2) CAD (coronary artery disease) of bypass graft Current Visit: No Status: Chronic Qualifiers: [place] vs. transplanted heart: [place] heart Associated angina: with unspecified angina Qualified Code(s): I25.709 - Atherosclerosis of coronary artery bypass graft(s), unspecified, with unspecified angina pectoris (3) Cirrhosis Current Visit: No Status: Chronic Assessment and plan: Patient denies abdominal pain, will check LFTs Qualifiers: Hepatic cirrhosis type: unspecified hepatic cirrhosis Ascites presence: without ascites Qualified Code(s): K74.60 - Unspecified cirrhosis of liver (4) History of CVA (cerebrovascular accident) Current Visit: No Status: Chronic Assessment and plan: No new focal neurological deficits. Patient stating he feels generally weak and stated that he ran out of home health services. We will bring OT, PT, and social insurance specialist on board for possible resources. (5) Diabetes mellitus Current Visit: No Status: Chronic Assessment and plan: Appears well-controlled but no recent A1c, will check with a.m. labs. Continue sliding scale while admitted. Qualifiers: Diabetes mellitus type: type 2 Diabetes mellitus complication status: without complication Diabetes mellitus assisted insulin use: unspecified assisted insulin use status Qualified Code(s): E11.9 - Type 2 diabetes mellitus without complications (6) Hypertension Current Visit: No Status: Chronic Assessment and plan: Blood pressure is been variable with borderline hypertensive and borderline hypotensive readings, will trend and adjust medications as indicated. Qualifiers: Hypertension type: essential hypertension Qualified Code(s): I10 - Essential (primary) hypertension (7) Hyperlipemia Current Visit: No Status: Chronic Assessment and plan: Lipid panel normal. Recommend continue low-cholesterol diet and statin Qualifiers: Hyperlipidemia type: other hyperlipidemia Qualified Code(s): E78.4 - Other hyperlipidemia (8) Hypothyroid Current Visit: No Status: Chronic Assessment and plan: TSH normal Qualifiers: Hypothyroidism type: unspecified Qualified Code(s): E03.9 - Hypothyroidism , unspecified (9) DVT prophylaxis Current Visit: No Status: Acute Assessment and plan: Was on heparin drip which was discontinued. IPC's (10) Hyperkalemia Current Visit: No Status: Acute Assessment and plan: Mild, acute on chronic, stable. Likely secondary to decreased renal excretion, we will trend (11) Acute renal injury Current Visit: No Status: Acute Assessment and plan: Mild, unclear causation, will recheck with a.m. labs (12) Anemia Current Visit: No Status: Chronic Assessment and plan: Stable, we will continue to trend. No signs of active bleeding. Qualifiers: Anemia type: iron deficiency Iron deficiency anemia type: other iron deficiency Qualified Code(s): D50.8 - Other iron deficiency anemias (13) Thrombocytopenia Current Visit: No Status: Chronic Assessment and plan: Stable, will trend and signs of active bleeding (14) Hypomagnesemia Current Visit: Yes Status: Acute Assessment and plan: Very mild, will recheck with a.m. labs - Subjective Interval history: Patient seen and examined. On examination, patient sitting upright in bed. Patient complaining he still has chest pain but states it is better than when he arrived. Patient stating he is hurting all over with his chronic back, hip, and joint pain. He states he is very hungry and is requesting another dietary tray as his food was allegedly cold. - Constitutional Vitals: Temp Pulse Resp BP Pulse Ox 98.1 F 50 15 95/52 97 01/02/17 18:58 01/02/17 18:58 01/02/17 18:58 01/02/17 18:58 01/02/17 18:58 General appearance: Present: A&O X 3, no acute distress, obese, answers questions appropriately - Head Head exam: Present: atraumatic, normocephalic - Eye Eye exam: Present: PERRL, conjuntiva pink, sclera anicteric Pupils: Present: PERRL - Neck Neck exam general surgery: Present: supple, trachea midline. Absent: lymphadenopathy - Respiratory Respiratory exam: Present: CTAB. Absent: accessory muscle use, rales, respiratory distress, rhonchi, wheezes - Cardiovascular Cardiovascular exam: Present: RRR, +S1, +S2. Absent: diastolic murmur, gallop, rubs, systolic murmur - GI/Abdominal GI/Abdominal exam: Present: normal bowel sounds, soft, tenderness, no peritoneal signs. Absent: distended - Extremities Exam Extremities exam: Present: warm, radial pulses palpable and symetrical. Absent : calf tenderness, cyanotic, pedal edema - Neurological Exam Neurological exam: Present: alert, CN II-XII intact, oriented X3, no focal deficits. Absent: strengths equal and symetr throughout, pronater drift, facial droop, speech deficit - Skin Skin exam: Present: dry, intact, pallor, warm Internal Medicine: Result - Labs CBC & Chem 7: 01/02/17 00:29 01/02/17 00:29 Labs: Short CBC 01/02/17 Range/Units 00:29 WBC 3.3 L (4.3-11.1) K/mcL Hgb 9.7 L (12.9-16.9) g/dL Hct 32.1 L (37.5-50.1) % Plt Count 94 L (140-400) K/mcL Neutrophils # 1.5 L (1.6-8.9) K/mcL BMP 01/02/17 00:29 Sodium 138 Potassium 4.9 H Chloride 108 Carbon Dioxide 25 BUN 20 Creatinine 1.35 H Glucose 172 H Calcium 8.9 Cardiac Enzymes 01/02/17 Range/Units 00:29 Troponin I 0.01 (0-0.03) ng/mL - ABG Interpretation ABG results: PT/INR, D-dimer PT 12.1 Seconds (9.4-12.1) 01/01/17 18:21 Consult Discharge Plan - Plan Referrals: Niko Knight MD [Primary Care Provider] -
[2017-01-02] MEDS ORDERED: D5% in Water 1,000 ML IVC PRN (19:20)
[2017-01-02] MEDS ORDERED: Dextrose Gel 15 GM PO PRN ×2 (19:20)
[2017-01-02] MEDS ORDERED: *HR* Dextrose 50 % in Water (Syg) 50 ML SYRINGE IVP PRN (19:20)
[2017-01-02] MEDS: rOPINIRole 1 MG TABLET PO SCH (19:53)
[2017-01-02 19:55] LABS: Hemoglobin A1C 6.2 %
[2017-01-02] MEDS ORDERED: Insulin LISPRO 300 UNITS/3 ML VIAL SQ SCH (21:00)
[2017-01-03] MEDS: *HR* OxyCODONE Immed Rel 5 MG TABLET PO PRN (04:42)
[2017-01-03] MEDS: Ondansetron 4 MG/2 ML VIAL IVP PRN (04:59)
[2017-01-03 07:50] LABS: Alanine Aminotransferase 14 Units/L (0-55); Albumin 3.4 g/dL (3.5-5.0); Albumin/Globulin Ratio 0.9 (1.1-2.2); Alkaline Phosphatase 119 Units/L (38-126); Aspartate Amino Transferase 17 Units/L (5-34); BUN/Creatinine Ratio 13 (6-26); Bilirubin,Direct 0.2 mg/dL (0.0-0.5); Bilirubin,Indirect 0.1 mg/dL (0.0-1.2); Bilirubin,Total 0.3 mg/dL (0.2-1.2); Blood Urea Nitrogen 17 mg/dL (8-26); Calcium 9.4 mg/dL (8.6-10.8); Carbon Dioxide 28 mEq/L (19-29); Chloride 105 mEq/L (98-109); Globulin 3.9 g/dL (2.4-3.5); Glucose 152 mg/dL (70-99); Lipase 35 Units/L (8-78); Magnesium 1.7 mg/dL (1.6-2.6); Osmolality,Calculated 291 (280-300); Potassium 4.6 mEq/L (3.5-4.5); Sodium 138 mEq/L (136-145); Total Protein 7.3 g/dL (6.0-8.3); eGFR For African Americans > 60 (> 60); eGFR For Non-African Americans 54 (> 60)
[2017-01-03 08:18] LABS: Basophils % 0.3 %; Eosinophils # 0.1 K/mcL (0.0-0.6); Eosinophils % 3.7 %; Hematocrit 31.7 % (37.5-50.1); Hemoglobin 9.6 g/dL (12.9-16.9); Immature Granulocytes % 0.8 % (0-4); Lymphocytes # 1.2 K/mcL (0.6-4.6); Lymphocytes % 34.3 %; Mean Corpuscular HGB Conc 30.3 g/dL (31.6-35.5); Mean Corpuscular Hemoglobin 28.8 pg (28.0-33.3); Mean Corpuscular Volume 95.2 fL (83.0-100.0); Mean Platelet Volume 11.2 fL (9.4-12.4); Monocytes # 0.3 K/mcL (0.0-1.3); Monocytes % 7.6 %; Neutrophils # 1.9 K/mcL (1.6-8.9); Platelet Count 109 K/mcL (140-400); Red Blood Count 3.33 M/mcL (4.19-5.50); Red Cell Distribution Width 14.6 % (11.5-14.5); Segmented Neutrophils % 53.3 %
[2017-01-03] MEDS: Gabapentin 300 MG CAPSULE PO SCH (08:45)
[2017-01-03] MEDS: Aspirin 81 MG TAB.CHEW PO SCH (08:45)
[2017-01-03] MEDS: amLODIPine 5 MG TABLET PO SCH (08:45)
[2017-01-03] MEDS: Insulin LISPRO 300 UNITS/3 ML VIAL SQ SCH ×2 (08:47→12:45)
[2017-01-03] MEDS: *HR* Promethazine 25 MG/ML VIAL IVP PRN ×2 (08:59→15:58)
[2017-01-03] MEDS: Fluticasone Propionate Nasal 50 MCG/SPRAY BOTTLE NS SCH (08:59)
[2017-01-03] MEDS ORDERED: *HR* OxyCODONE Immed Rel 5 MG TABLET PO PRN (09:21)
[2017-01-03] MEDS ORDERED: *HR* OxyCODONE Immed Rel 5 MG TABLET PO SCH (12:00)
--- NOTE | 2017-01-03 12:26 | Electrocardiograph Report ---
[place] [id number] Test Date: 2017-01-01 Pat Name: Ar Grewal Department: 105 Room: 3B36 Gender: M Promotion Producer: : [id number] Requested By: Mary Graham Order Number: [id number] Reading MD: Bharat Joshi Measurements Intervals [place] Rate: 49 P: -37 NV: 154 QRS: -13 QRSD: 144 T: 67 QT: 430 QTc: 401 Interpretive Statements ELECTRONIC ATRIAL PACEMAKER RIGHT BUNDLE BRANCH BLOCK Electronically Signed On 01-03-2017 12:24:39 EDT by Bharat Joshi
--- NOTE | 2017-01-03 14:52 | Discharge Summary ---
Date of Encounter: 01/03/17 Time of Encounter: 13:00 - Discharge Diagnosis (1) Chest pain Priority: Primary Status: Chronic Comments: Patient continues to have chronic chest pain. He has been seen and evaluated by cardiology who have cleared him for outpatient follow-up. Troponins negative , no ECG changes. Patient has an intolerance to most cardiac medications and refuses to try any medications that he is not on. Heparin drip stopped. Follow -up outpatient Qualifiers: Chest pain type: unspecified Qualified Code(s): R07.9 - Chest pain, unspecified (2) CAD (coronary artery disease) of bypass graft Priority: Secondary Status: Chronic Qualifiers: [place] vs. transplanted heart: [place] heart Associated angina: with unspecified angina Qualified Code(s): I25.709 - Atherosclerosis of coronary artery bypass graft(s), unspecified, with unspecified angina pectoris (3) Cirrhosis Priority: Secondary Status: Chronic Comments: LFTs normal Qualifiers: Hepatic cirrhosis type: unspecified hepatic cirrhosis Ascites presence: without ascites Qualified Code(s): K74.60 - Unspecified cirrhosis of liver (4) History of CVA (cerebrovascular accident) Priority: Secondary Status: Chronic Comments: No new focal neurological deficits. Patient stating he feels generally weak and stated that he ran out of home health services. OT and PT recommended inpatient rehab, but the patient refused. Risks versus benefits of choosing to go home discused and the patient stated he did not want to be away from home. On-call high school social studies tutor brought onboard. Will send him home today, and complete HH set up on Thursday. (5) Diabetes mellitus Priority: Secondary Status: Chronic Comments: Controlled with an A1c of 6.2%, follow-up outpatient Qualifiers: Diabetes mellitus type: type 2 Diabetes mellitus complication status: without complication Diabetes mellitus half-way insulin use: unspecified emt intermediate insulin use status Qualified Code(s): E11.9 - Type 2 diabetes mellitus without complications (6) Hypertension Priority: Secondary Status: Chronic Comments: Blood pressure is been variable with borderline hypertensive and borderline hypotensive readings, but overall, it remained stable. Recommend daily BP checks at home, keep a log, and follow-up outpatient Qualifiers: Hypertension type: essential hypertension Qualified Code(s): I10 - Essential (primary) hypertension (7) Hyperlipemia Priority: Secondary Status: Chronic Comments: Lipid panel normal. Recommend continue low-cholesterol diet and statin Qualifiers: Hyperlipidemia type: other hyperlipidemia Qualified Code(s): E78.4 - Other hyperlipidemia (8) Hypothyroid Priority: Secondary Status: Chronic Comments: TSH normal Qualifiers: Hypothyroidism type: unspecified Qualified Code(s): E03.9 - Hypothyroidism , unspecified (9) DVT prophylaxis Priority: Primary Status: Acute Comments: Was on heparin drip which was discontinued. IPC's were then ordered (10) Hyperkalemia Priority: Primary Status: Acute Comments: Mild, acute on chronic, adynamic and stable. Likely secondary to decreased renal excretion, follow up outpatient (11) Acute renal injury Priority: Primary Status: Acute Comments: Mild, unclear causation, remained stable, followup outpatient. suspect early CKD3 but not enough recent values to accurately diagnose (12) Anemia Priority: Secondary Status: Chronic Comments: Stable, no signs of active bleeding. Qualifiers: Anemia type: iron deficiency Iron deficiency anemia type: other iron deficiency Qualified Code(s): D50.8 - Other iron deficiency anemias (13) Thrombocytopenia Priority: Secondary Status: Chronic Comments: remained stable; followup outpatient. (14) Hypomagnesemia Priority: Primary Status: Resolved - Discharge Medications Home Medications: Levothyroxine [Synthroid] 50 mcg PO QAM 04/08/15 [History] Omeprazole [PriLOSEC] 40 mg PO DAILY 04/08/15 [History] Pravastatin Sodium [Pravachol] 40 mg PO DAILY 04/08/15 [History] Ropinirole HCl [Requip Xl] 4 mg PO HS 04/08/15 [History] Promethazine [Phenergan] 25 mg PO Q6H PRN 12/03/15 [History] Gabapentin [Neurontin] 300 mg PO TID 08/03/16 [History] Oxycodone HCl 10 mg PO Q6H PRN 08/03/16 [History] Tizanidine HCl 2 mg PO TID PRN 08/03/16 [History] Aspirin 81 mg PO DAILY #30 tab.chew 08/06/16 [Rx] amLODIPine [Norvasc] 5 mg PO DAILY #30 tablet 08/07/16 [Rx] Fluticasone Propionate Nasal [Flonase] 1 spray NS DAILY 01/01/17 [History] Allergies/Adverse Reactions: Allergies morphine Allergy (Intermediate, Verified 01/02/17 04:52) Hives codeine Allergy (Mild, Verified 04/08/15 09:52) Itching Penicillins Adverse Reaction (Intermediate, Verified 04/08/15 09:52) COMA nitroglycerin Adverse Reaction (Mild, Verified 08/02/15 03:33) LOW BLOOD PRESSURE pt states his blood pressure drops to fast and nitro makes him pass out. NITRATES Allergy (Mild, Uncoded 04/08/15 09:52) Itching NUBAIN Allergy (Mild, Uncoded 08/02/15 03:33) Itching pt states he had a bad instant reaction. Procedures/tests Complete & Pending: Procedures Performed prior 72 hours Category Date Time Status EV echocardiogram Routine Y 01/02/17 16:41 Completed Date of admission: 01/01/17 14:53 Primary care physician: Niko Knight MD Consults: 01/01/17 16:41 Consult to Cardiology [CONS] Routine Comment: Consulting Provider: Cardiology Erica Reason for Consult: CP Time Notified: 16:41 Call Completed: Yes 01/02/17 19:19 Consult to Occupational Therapy [CONS] Routine Comment: Evaluate, develop and implement POC Reason for Consult: hx cva. increased weakness Consult to Physical Therapy [CONS] Routine Comment: Evaluate, develop and implement POC Reason for Consult: hx cva. increased weakness Consult to Stock Preparation Operator [CONS] Routine Reason for SW Consult: had HH in past- states he was only allowed 6 weeks. OT PT pending Discharging clinician: Lay Madden Anticipated date of discharge: 01/03/17 (refused ECF; sending with HH svcs) - Patient Status Disposition: Home Health Service Condition: Fair Functional capacity at discharge: uses cane/walker Overall status at discharge: patient is progressing back to baseline - Discharge Instructions Follow Up With: Niko Knight MD [Primary Care Provider] - Additional Instructions: Follow-up with primary care provider within one to 2 weeks, we will try to set up home health for you on Thursday - Diet and Activity Activity: as per physical therapy, increase activity as tolerated Diet: diabetic diet, low fat, low cholesterol, low salt diet Hospital course: Mr. Grewal is a 61 year old male with past medical history of CAD status post CABG, sinus sick syndrome status post pacemaker, diabetes, hypertension, prior CVA, gastroparesis, CHF. Patient presented to the emergency department chief complaint mid sternally located chest pressure described as dull. He took 2 full strength aspirins which eased the pain and he went back to sleep but then the pain reoccurred approximately 45 minutes later and again at that time, he took 2 more full strength aspirin which eased the pain but he still wanted to go to the emergency department. Workup in the emergency department revealing mild acute kidney injury. Chest x-ray negative. Patient was admitted to the hospitalist service for further evaluation and management. No ECG changes. Troponins were negative. Echocardiogram unremarkable with ejection fraction of 55-60%. Patient was euvolemic on examination and denied shortness of breath above his normal throughout this admission. Cardiology was brought on board who cleared him for outpatient follow-up. Of note, patient has an intolerance to most cardiac medications and refuses to try any new medications. Throughout this admission, patient complained of his chronic pain "all over." He denied a change to his chronic pain. Patient stating he used to have home health services but states he ran out of them stating he only had 6 weeks worth. OT and PT were brought on board and they recommended ECF placement. Patient refused ECF placement but was amenable to home health. Candid discussion with risks of choosing not to go inpatient was discussed with the patient but he still declined stating he would rather go home and have home health services. He was discharged on a Thursday, spoke to the on-call high school social studies tutor, who states they will try to set up home health services on Thursday. Patient was advised. Acute coronary syndrome was ruled out. He was discharged home in stable condition with close outpatient follow-up recommended. ITS Impressions Chest X-Ray 01/01/17 13:06 IMPRESSION: 1. No active pulmonary disease. D/ / Kev Nguyễn MD / Kev Nguyễn MD Interpreting Provider: Kev Nguyễn MD Echocardiogram with saline contrast impressions: LVEF 55-60%. Normal LV chamber size and wall thickness. Not all LV segments were well visualized, but overall systolic function is normal. Right ventricle appears mildly dilated in some views. Systolic function was normal. Mild to moderately dilated left atrium. Atypical septal motion consistent with paced rhythm. No evidence of PFO with agitated saline contrast. Mild tricuspid regurgitation. Mild pulmonary hypertension. Estimated RVSP is 36 mmHg. A device lead was visualized in the right atrium and right ventricle. - Time Spent with Patient Total time spent providing and/or coordinating discharge services: - Constitutional Vitals: Temp Pulse Resp BP Pulse Ox 97.8 F 50 17 145/63 100 01/03/17 11:34 01/03/17 11:34 01/03/17 11:34 01/03/17 11:34 01/03/17 11:34 General appearance: Present: A&O X 3, pleasant, no acute distress, obese, answers questions appropriately - Head Head exam: Present: atraumatic, normocephalic - Eye Eye exam: Present: PERRL, conjuntiva pink, sclera anicteric Pupils: Present: PERRL - Neck Neck exam general surgery: Present: supple, trachea midline. Absent: lymphadenopathy - Respiratory Respiratory exam: Present: CTAB. Absent: accessory muscle use, rales, respiratory distress, rhonchi, wheezes - Cardiovascular Cardiovascular exam: Present: RRR, +S1, +S2, systolic murmur. Absent: diastolic murmur, gallop, rubs - GI/Abdominal GI/Abdominal exam: Present: normal bowel sounds, soft, no peritoneal signs. Absent: distended, tenderness - Extremities Exam Extremities exam: Present: warm, radial pulses palpable and symetrical. Absent : calf tenderness, cyanotic, pedal edema - Neurological Exam Neurological exam: Present: alert, CN II-XII intact, oriented X3, no focal deficits. Absent: strengths equal and symetr throughout, pronater drift, facial droop, speech deficit - Skin Skin exam: Present: dry, intact, pallor, warm
--- NOTE | 2017-01-03 15:13 | Physician Discharge Referral ---
Home Health/Hosp Referral Info Transfer to: Home Health Attending Provider: Donavon Madden CNP Provider in Charge Post Discharge: PCP - Diagnosis (1) Chest pain Priority: Secondary Status: Chronic (2) CAD (coronary artery disease) of bypass graft Priority: Secondary Status: Chronic (3) Cirrhosis Priority: Secondary Status: Chronic (4) History of CVA (cerebrovascular accident) Priority: Secondary Status: Chronic (5) Diabetes mellitus Priority: Secondary Status: Chronic (6) Hypertension Priority: Secondary Status: Chronic (7) Hyperlipemia Priority: Secondary Status: Chronic (8) Hypothyroid Priority: Secondary Status: Chronic (9) DVT prophylaxis Priority: Primary Status: Acute (10) Hyperkalemia Priority: Primary Status: Acute (11) Acute renal injury Priority: Primary Status: Acute (12) Anemia Priority: Secondary Status: Chronic (13) Thrombocytopenia Priority: Secondary Status: Chronic (14) Hypomagnesemia Priority: Primary Status: Resolved - Respiratory Orders Smoking Cessation: Smoking cessation has been advised. For more information, call the [place] Tobacco Quit Line at 7-045-OHGU-NOW. - Diet/Nutrition Diet/Nutrition Orders: No Added Salt (THUAN), Cardiac, No Concentrated Sweets - Activity Activity Orders: Ambulate (per PT) - Services Needed Following services are medically necessary services: Nursing, Home Health Aide, Physical Therapy, Occupational Therapy - Transfer Medications Home Medications: Levothyroxine [Synthroid] 50 mcg PO QAM 04/08/15 [History] Omeprazole [PriLOSEC] 40 mg PO DAILY 04/08/15 [History] Pravastatin Sodium [Pravachol] 40 mg PO DAILY 04/08/15 [History] Ropinirole HCl [Requip Xl] 4 mg PO HS 04/08/15 [History] Promethazine [Phenergan] 25 mg PO Q6H PRN 12/03/15 [History] Gabapentin [Neurontin] 300 mg PO TID 08/03/16 [History] Oxycodone HCl 10 mg PO Q6H PRN 08/03/16 [History] Tizanidine HCl 2 mg PO TID PRN 08/03/16 [History] Aspirin 81 mg PO DAILY #30 tab.chew 08/06/16 [Rx] amLODIPine [Norvasc] 5 mg PO DAILY #30 tablet 08/07/16 [Rx] Fluticasone Propionate Nasal [Flonase] 1 spray NS DAILY 01/01/17 [History] Allergies/Adverse Reactions: Allergies morphine Allergy (Intermediate, Verified 01/02/17 04:52) Hives codeine Allergy (Mild, Verified 04/08/15 09:52) Itching Penicillins Adverse Reaction (Intermediate, Verified 04/08/15 09:52) COMA nitroglycerin Adverse Reaction (Mild, Verified 08/02/15 03:33) LOW BLOOD PRESSURE pt states his blood pressure drops to fast and nitro makes him pass out. NITRATES Allergy (Mild, Uncoded 04/08/15 09:52) Itching NUBAIN Allergy (Mild, Uncoded 08/02/15 03:33) Itching pt states he had a bad instant reaction. Certification: Further, I certify that my clinical findings support that this patient is homebound (i.e. absences from home require considerable and taxing effort and are for medical reasons or anabaptist services or infrequently or short duration when for other reasons) because: Homebound Reason: Patient requires assistance of a person or device to safely leave home, Leaving home requires considerable and taxing effort due to condition Attestation: My signature below is to certify that this patient is under my care and that I, or nurse practitioner, or a physician's legal administrative assistant working with me, has a face-to -face encounter with this patient.
[2017-01-03 15:48] VITALS: BP 135/64
== END 2017-01-03 17:00 | disposition home health service (06) ==
LOC: 3BNU 12:53 → EMEROO 12:53 → 3BNU 16:09
PROVIDERS: ADMIT Nurse Practitioner Acute Care; ATTEND Nurse Practitioner Family

== ENCOUNTER 2017-03-17 12:45 | Observation (INO) ==
[2017-03-17 13:22] LABS: Basophils % 0.2 %; Eosinophils # 0.2 K/mcL (0.0-0.6); Eosinophils % 3.3 %; Hematocrit 34.8 % (37.5-50.1); Hemoglobin 11.1 g/dL (12.9-16.9); Immature Granulocytes % 0.4 % (0-4); Lymphocytes # 1.4 K/mcL (0.6-4.6); Lymphocytes % 29.5 %; Mean Corpuscular HGB Conc 31.9 g/dL (31.6-35.5); Mean Corpuscular Hemoglobin 29.3 pg (28.0-33.3); Mean Corpuscular Volume 91.8 fL (83.0-100.0); Mean Platelet Volume 10.4 fL (9.4-12.4); Monocytes # 0.3 K/mcL (0.0-1.3); Monocytes % 6.1 %; Neutrophils # 2.8 K/mcL (1.6-8.9); Platelet Count 108 K/mcL (140-400); Red Blood Count 3.79 M/mcL (4.19-5.50); Red Cell Distribution Width 13.4 % (11.5-14.5); Segmented Neutrophils % 60.5 %
[2017-03-17 13:32] LABS: Calcium 9.1 mg/dL (8.6-10.8); Potassium 4.6 mEq/L (3.5-4.5)
[2017-03-17 13:45] LABS: Albumin 3.9 g/dL (3.5-5.0); Albumin/Globulin Ratio 0.9 (1.1-2.2); Bilirubin,Direct 0.2 mg/dL (0.0-0.5); Bilirubin,Indirect 0.1 mg/dL (0.0-1.2); Bilirubin,Total 0.3 mg/dL (0.2-1.2); Globulin 4.3 g/dL (2.4-3.5); Magnesium 1.8 mg/dL (1.6-2.6); Phosphorous 3.5 mg/dL (2.3-4.7); Total Protein 8.2 g/dL (6.0-8.3)
[2017-03-17] MEDS ORDERED: Ondansetron 4 MG/2 ML VIAL IVP ONE (13:53)
--- NOTE | 2017-03-17 14:06 | Emergency Department Note ---
Disposition Clinical Impression: Chest pain Qualifiers: Chest pain type: chest pain due to myocardial ischemia Ischemic chest pain type : stable angina pectoris Qualified Code(s): I20.8 - Other forms of angina pectoris Nausea & vomiting Qualifiers: Vomiting type: unspecified Vomiting Intractability: non-intractable Qualified Code(s): R11.2 - Nausea with vomiting, unspecified Disposition: Admitted As Inpatient Condition: Fair Time of Disposition: 16:12 Chest Pain HPI - General Chief Complaint: ED Chest Pain Stated Complaint: Chest Pain / [place] Time Seen by Provider: 03/17/17 12:55 Source: patient Mode of arrival: ambulatory Limitations: no limitations Vital Signs Reviewed: Yes Nursing Notes Reviewed: Yes - History of Present Illness HPI Narrative: Patient presents to the ED with chief complaint chest pain and shortness of breath. 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 States he became very lightheaded, dizzy, nauseated and vomited a few times. Nonbloody. Also complaining of abdominal distention and pain since then. States he is chronically nauseated but this is worse than usual. Denies any headaches or changes in his vision other than the cataract. States this feels exactly like his previous [place] Severity scale (1-10): 8 - Related Data Home Medications Medication Instructions Recorded Confirmed Levothyroxine [Synthroid] 50 mcg PO QAM 04/08/15 03/17/17 Omeprazole [PriLOSEC] 40 mg PO DAILY 04/08/15 03/17/17 Ropinirole HCl [Requip Xl] 4 mg PO HS 04/08/15 03/17/17 Promethazine [Phenergan] 25 mg PO TID 12/03/15 03/17/17 Gabapentin [Neurontin] 600 mg PO DAILY 08/03/16 03/17/17 Oxycodone HCl 10 mg PO Q6H PRN 08/03/16 03/17/17 Tizanidine HCl 2 mg PO BID PRN 08/03/16 03/17/17 Fluticasone Propionate Nasal 1 spray NS DAILY 01/01/17 03/17/17 [Flonase] Atorvastatin [Lipitor] 40 mg PO HS 03/17/17 03/17/17 Previous Rx's Medication Instructions Recorded Aspirin 81 mg PO DAILY #30 tab.chew 08/06/16 Allergies Allergy/AdvReac Type Severity Reaction Status Date / Time morphine Allergy Intermediate Hives Verified 03/17/17 12:49 codeine Allergy Mild Itching Verified 03/17/17 12:49 Penicillins AdvReac Intermediate COMA Verified 03/17/17 12:49 nitroglycerin AdvReac Mild LOW BLOOD Verified 03/17/17 12:49 PRESSURE NITRATES Allergy Mild Itching Uncoded 03/17/17 12:49 NUBAIN Allergy Mild Itching Uncoded 03/17/17 12:49 All systems ED: reviewed and negative except as stated. Constitutional: Denies: fever Eyes: Reports: vision change (from cataract) Cardiovascular: Reports: chest pain, dyspnea on exertion. Denies: syncope Respiratory: Reports: dyspnea. Denies: cough, wheezes, hemoptysis, stridor, sputum production Gastrointestinal: Reports: abdominal pain, nausea, vomiting. Denies: diarrhea Musculoskeletal: Denies: back pain Integumentary: Denies: rash Neurological: Denies: headache Chest Pain PMH - Past Medical History Medical history: Reports: cirrhosis, CHF, coronary artery disease, CVA, diabetes , GERD, hypertension, myocardial infarction, thyroid disease, other Surgical history: Reports: appendectomy, cholecystectomy, coronary bypass (CABG) , orthopedic, other, pacemaker/AICD Psychiatric history: Reports: no psych history - Social History Smoking Status: Never smoker Alcohol use: Reports: none Drug use: Reports: none Physical Exam - General Limitations: no limitations General appearance: alert, other (Patient appears quite uncomfortable, slightly pale and diaphoretic) - Head Head exam: atraumatic, normocephalic, normal inspection - Eye Eye exam: Present: normal appearance, PERRL, EOMI - ENT ENT exam: normal exam, normal oropharynx, mucous membranes moist - Neck Neck exam: Present: normal inspection, full ROM, trachea midline - Chest Chest inspection: Present: normal inspection, symmetric chest wall rise - Respiratory Respiratory exam: Present: normal lung sounds bilaterally - Cardiovascular Cardiovascular exam: Present: bradycardia, normal heart sounds - Abdominal Exam Abdominal exam: Present: soft, tenderness, distention, diminished bowel sounds. Absent: guarding, rebound, rigidity, pulsatile mass Abdominal tenderness: Present: diffuse, moderate - Extremities Exam Extremities exam: Present: normal inspection, full ROM. Absent: tenderness, pedal edema - Neurological Exam Neurological exam: Present: alert, oriented X3 - Psychiatric Psychiatric exam: Present: normal affect, normal mood - Skin Skin exam: Present: warm, dry, intact, normal color Course Course Narrative: 61-year-old male presenting with a one-hour history of crushing retrosternal chest pain, abdominal distention, nausea and vomiting. Vital signs are currently stable, but I am worried about potential aortic pathology due to his abdominal distention, nausea and vomiting and chest pain. We will order standard cardiac workup, but will also CTA abdomen and pelvis to rule out aortic aneurysm. Patient will be admitted. He refused nitroglycerin. This time - Reevaluation(s) Reevaluation #1: Patient accepted by the hospitalist for admission. Vital Signs Temperature 98.5 F 03/17/17 12:46 Pulse Rate 49 03/17/17 12:46 Respiratory Rate 20 03/17/17 12:46 Blood Pressure 130/63 03/17/17 12:46 O2 Sat by Pulse Oximetry 98 03/17/17 12:46 Temperature 98.5 F 03/17/17 12:46 Pulse Rate 49 03/17/17 15:30 Respiratory Rate 20 03/17/17 15:30 Blood Pressure 128/62 03/17/17 15:30 O2 Sat by Pulse Oximetry 100 03/17/17 15:30 Oxygen Delivery Oxygen Delivery Nasal Cannula Chest Pain - Medical Records Medical records reviewed: Yes I reviewed the patient's medical records. - Lab Data Lab results reviewed: Yes I reviewed the patient's lab results. Result diagrams: 03/17/17 13:12 03/17/17 13:12 Lab Results 03/17/17 03/17/17 03/17/17 Range/Units 13:12 13:12 13:12 WBC 4.6 (4.3-11.1) K/mcL RBC 3.79 L (4.19-5.50) M/mcL Hgb 11.1 L (12.9-16.9) g/dL Hct 34.8 L (37.5-50.1) % MCV 91.8 (83.0-100.0) fL MCH 29.3 (28.0-33.3) pg MCHC 31.9 (31.6-35.5) g/dL RDW 13.4 (11.5-14.5) % Plt Count 108 L (140-400) K/mcL MPV 10.4 (9.4-12.4) fL Immature Gran % 0.4 (0-4) % Seg Neutrophils % 60.5 % Lymphocytes % 29.5 % Monocytes % 6.1 % Eosinophils % 3.3 % Basophils % 0.2 % Neutrophils # 2.8 (1.6-8.9) K/mcL Lymphocytes # 1.4 (0.6-4.6) K/mcL Monocytes # 0.3 (0.0-1.3) K/mcL Eosinophils # 0.2 (0.0-0.6) K/mcL Basophils # 0.0 (0.0-0.2) K/mcL Sodium 138 (136-145) mEq/L Potassium 4.6 H (3.5-4.5) mEq/L Chloride 106 (98-109) mEq/L Carbon Dioxide 26 (19-29) mEq/L BUN 33 H (8-26) mg/dL Creatinine 1.46 H (0.72-1.25) mg/dL Est GFR ( Amer) 59 L (> 60) Est GFR (Non-Af Amer) 49 L (> 60) BUN/Creatinine Ratio 23 (6-26) Glucose 130 H (70-99) mg/dL Calculated Osmolality 295 (280-300) Calcium 9.1 (8.6-10.8) mg/dL Phosphorus 3.5 (2.3-4.7) mg/dL Magnesium 1.8 (1.6-2.6) mg/dL Total Bilirubin 0.3 (0.2-1.2) mg/dL Direct Bilirubin 0.2 (0.0-0.5) mg/dL Indirect Bilirubin 0.1 (0.0-1.2) mg/dL AST 19 (5-34) Units/L ALT 12 (0-55) Units/L Alkaline Phosphatase 131 H (38-126) Units/L Troponin I 0.00 (0-0.03) ng/mL Serum Total Protein 8.2 (6.0-8.3) g/dL Albumin 3.9 (3.5-5.0) g/dL Globulin 4.3 H (2.4-3.5) g/dL Albumin/Globulin Ratio 0.9 L (1.1-2.2) Lipase 46 (8-78) Units/L - Radiology Data Radiology results reviewed: Yes I reviewed the patient's radiology results. Chest CTA 03/17/17 00:00 IMPRESSION: No evidence of acute process within the chest, abdomen or pelvis. No pulmonary embolism is detected. Reticulation of the subcutaneous tissues involving the left buttock likely related to prior hip arthroplasty. Cellulitis may be considered. Cirrhosis. Cholecystectomy. Old right rib fracture. D/ : / 03/17/2017 15:09:19 Moise Hale MD / juanito Interpreting Provider: Moise Hale MD Chest X-Ray 03/17/17 12:54 IMPRESSION: No active cardiopulmonary disease D/ / Thomas Sotne MD / Thomas Stone MD Interpreting Provider: Thomas Stone MD Abdomen/Pelvis CTA 03/17/17 13:18 IMPRESSION: No evidence of acute process within the chest, abdomen or pelvis. No pulmonary embolism is detected. Reticulation of the subcutaneous tissues involving the left buttock likely related to prior hip arthroplasty. Cellulitis may be considered. Cirrhosis. Cholecystectomy. Old right rib fracture. D/ : / 03/17/2017 15:09:19 Moise Hale MD / juanito Interpreting Provider: Moise Hale MD - EKG Data EKG attestation: Yes I reviewed and interpreted this EKG. EKG results narrative: Paced rhythm, rate 49, ME interval 165, QRS 146, QTC 425, left axis deviation, right bundle branch block pattern which is not changed from previous Attestation Statement - Attestation Attestation: I examined this patient and my medical decision-making was reviewed with the Resident Physician. I agree with the documented findings, disposition and treatment plan as described except to the extent set forth below. Patiently to emergency department complaining of chest pressure. Nausea. Feels like prior MIs. Exam shows some in no acute distress. He has no acute changes to his EKG. Cardiac workup unremarkable. Plan. We will admit for further cardiac workup.
[2017-03-17] MEDS ORDERED: *HR* FentaNYL (PF) 100 MCG/2 ML VIAL IVP ONE (14:58)
[2017-03-17] MEDS: Aspirin 325 MG TABLET PO ONE (15:27)
[2017-03-17] MEDS ORDERED: *HR* Promethazine 25 MG/ML VIAL IVP ONE (16:35)
[2017-03-17] MEDS ORDERED: Naloxone 0.4 MG/ML INJ IVP PRN (17:16)
[2017-03-17] MEDS: *HR* OxyCODONE Immed Rel 5 MG TABLET PO PRN (18:26)
--- NOTE | 2017-03-17 20:02 | Internal Med History&Physical ---
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 He also had associated symptoms of nausea vomiting. He was given fentanyl in the ER which did somewhat relieve his pain. EKGs with no changes. It appears the patient does have a history of chronic chest pain in the past he is unable to take any nitrates as well as beta blockers or calcium channel blockers. His first troponin is 0 we will continue to trend his troponin -11/2015 Nuclear stress test negative for ischemia or infarct. -07/2016 Echo with LVEF 55-60%, atypical septal motion consistent with bundle branch block, right ventricle appears midly dilated, normal RV function, mild TR , mild PH, interatrial septum is mildly aneurysmal, no evidence of intracardiac shunting with agitated saline contrast, all wall segments with normal motion. -Last [facility] 2011 with proximal LAD 100%, luminal irregularities mid to distal LAD , 20-30% proximal to mid OM, luminal irregularities in circumflex, 100% proximal RCA, LAUGHLIN to LAD patent, SVG to mid PDA occluded, good quality collaterals from this septal to mid PL were present. -Echo 01/02/17 with LVEF 55-60%, RV mildly dilated with normal function, mild to moderately dilated left atrium, atypical septal motion consistent with paced rhythm, NO evidence of PFO, mild TR, mild PH. 2 continuous cardiac monitoring 3 EKG 4 the patient nothing by mouth at midnight-possible stress in a.m. if patient chest pain-free 5 consult cardiology as needed Qualifiers: Chest pain type: unspecified Qualified Code(s): R07.9 - Chest pain, unspecified (2) Cirrhosis Current visit: No Status: Chronic 1 presently stable-normal LFTs at this time Qualifiers: Hepatic cirrhosis type: unspecified hepatic cirrhosis Ascites presence: without ascites Qualified Code(s): K74.60 - Unspecified cirrhosis of liver (3) Diabetes mellitus Current visit: No Status: Chronic 1 Accu-Cheks before meals at bedtime with sliding scale insulin Qualifiers: Diabetes mellitus type: type 2 Diabetes mellitus complication status: without complication Diabetes mellitus detention insulin use: 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 Qualified Code(s): E11.9 - Type 2 diabetes mellitus without complications (4) Hypertension Current visit: No Status: Chronic 1 continue with home medications Qualifiers: Hypertension type: essential hypertension Qualified Code(s): I10 - Essential (primary) hypertension (5) Hyperlipemia Current visit: No Status: Chronic Continue with statin Qualifiers: Hyperlipidemia type: other hyperlipidemia Qualified Code(s): E78.4 - Other hyperlipidemia (6) Hypothyroid Current visit: No Status: Chronic We will check TSH continue with Synthroid Qualifiers: Hypothyroidism type: unspecified Qualified Code(s): E03.9 - Hypothyroidism , unspecified (7) DVT prophylaxis Current visit: No Status: Acute Heparin subcutaneous (8) Acute renal injury Current visit: No Status: Acute Patient comes which appears to be elevated from previous and December. . We will give IV fluids overnight 2 monitor creatinine 3 monitor intake and output daily weights 4 avoid nephrotoxins Internal Medicine - H&P: HPI Chief complaint: CP History of present illness: Mr. Grewal is a 61 year old male past medical history of cirrhosis CHF coronary artery disease with CABG in 1990 6 sinus syndrome with pacemaker CVA diabetes hypertension thyroid disease. 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 10 out of 10. He became light headed dizzy nauseated and vomited a few times. He also experienced abdominal distention and pain. He does have a history of chronic nausea that he takes Phenergan for however he felt this was worse than usual. He denied any headaches or vision changes or loss of consciousness. There was no hematemesis. He came to the ER for evaluation of coronary ER records and lab work did reveal creatinine 1.46 history per was near his lipase is 46 his mag was 1.8 CT A of abdomen and pelvis was negative for any chest or abdominal abnormalities. EKG with no ST-T wave abnormalities chest x-ray with no acute process. He was given fentanyl for his pain which did improve and Zofran for nausea. He has been admitted for further work up evaluation. I did review his records and does appear that the patient has a history of chronic chest pain. He has been placed on multiple anginal in the past and has been intolerant of all of them. He is unable take Ranexa due to syncope, CCB's and beta blockers, nitrates due to hypertension, aspirin due to bleeding per prior records. He does not take sublingual nitroglycerin due to hypertension and headaches. He is also allergic to morphine. He was seen here in December for chest pain his workup at that time was negative he did have a heart catheter in 2011 with proximal LAD 100% luminal irregularities mid to distal LAD, 2030% proximal to mid OM, luminal irregularities to circumflex, 100% proximal RCA, LAUGHLIN to LAD patent, as the G-tube PDA occluded, good quality collaterals from the septal to mid PL were present. Echo 01/02/17 with EF 5560% RV mildly dilated with normal function mild to moderately dilated left atrium atypical septal motion consistent with paced rhythm, no evidence of PFO mild TR mild pH. He does complain of chest pressure now despite recent fentanyl administration. I rechecked his EKG which shows no changes. He did take his home dose of Percocet and then made the statement" if this is all I am going to get I should have stayed home" his lung sounds are clear heart sounds are regular S1-S2 with no rubs clicks, murmurs noted abdomen soft nontender he is not nauseated presently. He has eaten a whole dinner without vomiting. Lower extremities without any swelling. I reviewed his case with Dr. Leonard who agrees with plan Past Med Surg Social Fam HX - Past Medical History Medical history: cirrhosis, CHF, coronary artery disease, CVA, diabetes, GERD, hypertension, myocardial infarction, thyroid disease, other Psychiatric history: no psych history - Past Surgical History Surgical History: appendectomy, cholecystectomy, coronary bypass (CABG), orthopedic, other, pacemaker/AICD - Social History Smoking Status: Never smoker Smokeless Tobacco Status: No Alcohol use: none Drug use: none - Family History Mother Living Status: Hx Family Cardiac Disorders: No Internal Medicine - H&P: Meds Levothyroxine [Synthroid] 50 mcg PO QAM 04/08/15 [History] Omeprazole [PriLOSEC] 40 mg PO DAILY 04/08/15 [History] Ropinirole HCl [Requip Xl] 4 mg PO HS 04/08/15 [History] Promethazine [Phenergan] 25 mg PO TID 12/03/15 [History] Gabapentin [Neurontin] 600 mg PO DAILY 08/03/16 [History] Oxycodone HCl 10 mg PO Q6H PRN 08/03/16 [History] Tizanidine HCl 2 mg PO BID PRN 08/03/16 [History] Aspirin 81 mg PO DAILY #30 tab.chew 08/06/16 [Rx] Fluticasone Propionate Nasal [Flonase] 1 spray NS DAILY 01/01/17 [History] Atorvastatin [Lipitor] 40 mg PO HS 03/17/17 [History] 3 Allergy/AdvReac Type Severity Reaction Status Date / Time morphine Allergy Intermediate Hives Verified 03/17/17 12:49 codeine Allergy Mild Itching Verified 03/17/17 12:49 Penicillins AdvReac Intermediate COMA Verified 03/17/17 12:49 nitroglycerin AdvReac Mild LOW BLOOD Verified 03/17/17 12:49 PRESSURE NITRATES Allergy Mild Itching Uncoded 03/17/17 12:49 NUBAIN Allergy Mild Itching Uncoded 03/17/17 12:49 All Systems PM: A 10-system review of systems was performed and is negative for pertinent findings except as documented above in the HPI. - Constitutional Constitutional: no chills, no fever(s), no night sweats - EENT Eyes: no change in vision, no discharge, no pain, no photophobia Nose, mouth and throat: no dysphagia, no nasal discharge, no neck pain, no sore throat - Cardiovascular Cardiovascular ROS IM: chest pain, no diaphoresis, no dyspnea, no lightheadedness, no palpitations, no syncope - Respiratory Respiratory: no cough, no dyspnea, no wheezing, no excessive phlegm production - Gastrointestinal Gastrointestinal: abdominal pain - Musculoskeletal Musculoskeletal ROS IM: no numbness, no tingling - Integumentary Integumentary IM: no rash, no unusual bruising - Neurological Neurological ROS: no confusion, no convulsions, no focal weakness, no numbness, no tingling, no tremor(s) - Hematologic/Lymphatic Hematologic/Lymphatic: no easy bruising - Constitutional Vitals: Temp Pulse Resp BP Pulse Ox 98.4 F 55 16 154/78 100 03/17/17 17:48 03/17/17 17:48 03/17/17 17:48 03/17/17 17:48 03/17/17 17:48 General appearance: Present: A&O X 3, answers questions appropriately - Head Head exam: Present: atraumatic, normocephalic - Eye Eye exam: Present: PERRL, conjuntiva pink, sclera anicteric Pupils: Present: PERRL - Neck Neck exam general surgery: Present: supple, trachea midline. Absent: lymphadenopathy - Respiratory Respiratory exam: Present: CTAB. Absent: accessory muscle use, rales, rhonchi, wheezes - Cardiovascular Cardiovascular exam: Present: RRR, +S1, +S2. Absent: diastolic murmur, gallop, rubs, systolic murmur - GI/Abdominal GI/Abdominal exam: Present: normal bowel sounds, soft, no peritoneal signs. Absent: distended, tenderness - Extremities Exam Extremities exam: Present: warm, radial pulses palpable and symmetrical. Absent : calf tenderness, cyanotic, pedal edema - Neurological Exam Neurological exam: Present: CN II-XII intact, oriented X3, no focal deficits. Absent: pronater drift, facial droop, speech deficit Internal Med - H&P Results - Labs CBC & Chem 7: 03/17/17 13:12 03/17/17 13:12 Labs: Cardiac Enzymes 03/17/17 Range/Units 19:11 Troponin I 0.01 (0-0.03) ng/mL - EKG Data EKG shows normal: sinus rhythm - EKG Data Prior EKG available for review: yes When compared to previous EKG: there is no significant change EKG comments: 03/17/17 20:17 Right bundle-branch block which was present on previous EKG - Diagnostic Studies Other Images Additional comments: Chest CTA 03/17/17 00:00 IMPRESSION: No evidence of acute process within the chest, abdomen or pelvis. No pulmonary embolism is detected. Reticulation of the subcutaneous tissues involving the left buttock likely related to prior hip arthroplasty. Cellulitis may be considered. Cirrhosis. Cholecystectomy. Old right rib fracture. D/ / 03/17/2017 15:09:19 Moise Hale MD / earnold Interpreting Provider: Moise Hale MD Chest X-Ray 03/17/17 12:54 IMPRESSION: No active cardiopulmonary disease D/ / Thomas Stone MD / Thomas Stone MD Interpreting Provider: Thomas Stone MD Abdomen/Pelvis CTA 03/17/17 13:18 IMPRESSION: No evidence of acute process within the chest, abdomen or pelvis. No pulmonary embolism is detected. Reticulation of the subcutaneous tissues involving the left buttock likely related to prior hip arthroplasty. Cellulitis may be considered. Cirrhosis. Cholecystectomy. Old right rib fracture. D/ : / 03/17/2017 15:09:19 Moise Hale MD / [facility] Interpreting Provider: oMise Hale MD
[2017-03-17] MEDS ORDERED: *HR* Dextrose 50 % in Water (Syg) 50 ML SYRINGE IVP PRN (20:49)
[2017-03-17] MEDS ORDERED: Dextrose Gel 15 GM PO PRN ×2 (20:49)
[2017-03-17] MEDS ORDERED: D5% in Water 1,000 ML IVC PRN (20:49)
--- NOTE | 2017-03-17 20:56 | Electrocardiograph Report ---
[place] [facility] Test Date: 2017-03-17 Pat Name: Ar Grewal Department: 105 Room: 3B43 Gender: M News Writer: MSC : 1955 Requested By: Santiago Rizzo Order Number: [id number] Reading MD: Jason Norris MD Measurements Intervals [place] Rate: 49 P: 264 FL: 165 QRS: -27 QRSD: 146 T: 72 QT: 454 QTc: 425 Interpretive Statements ELECTRONIC ATRIAL PACEMAKER BORDERLINE LEFT AXIS DEVIATION [QRS AXIS < -20] RIGHT BUNDLE BRANCH BLOCK [120+ ms QRS DURATION, UPRIGHT V1, 40+ ms S IN I/aVL/V4/V5/V6] Electronically Signed On 03-17-2017 20:54:56 EDT by Jason Norris MD
[2017-03-17] MEDS ORDERED: Insulin LISPRO 300 UNITS/3 ML VIAL SQ SCH (21:00)
[2017-03-17] MEDS ORDERED: rOPINIRole 1 MG TABLET PO SCH (21:00)
[2017-03-17] MEDS: 0.9 % Sodium Chloride 1,000 ML IVC SCH (22:23)
[2017-03-17] MEDS: Ondansetron 4 MG/2 ML VIAL IVP PRN (22:23)
[2017-03-18 02:10] LABS: Basophils % 0.6 %; Eosinophils # 0.2 K/mcL (0.0-0.6); Eosinophils % 4.7 %; Hematocrit 31.3 % (37.5-50.1); Immature Granulocytes % 0.3 % (0-4); Lymphocytes # 1.5 K/mcL (0.6-4.6); Lymphocytes % 41.3 %; Mean Corpuscular HGB Conc 30.4 g/dL (31.6-35.5); Mean Corpuscular Hemoglobin 28.3 pg (28.0-33.3); Mean Corpuscular Volume 93.2 fL (83.0-100.0); Monocytes # 0.3 K/mcL (0.0-1.3); Neutrophils # 1.7 K/mcL (1.6-8.9); Platelet Count 100 K/mcL (140-400); Red Blood Count 3.36 M/mcL (4.19-5.50); Red Cell Distribution Width 13.4 % (11.5-14.5); Segmented Neutrophils % 46.1 %
[2017-03-18 02:19] LABS: Hemoglobin 9.5 g/dL (12.9-16.9)
[2017-03-18 02:28] LABS: BUN/Creatinine Ratio 24 (6-26); Blood Urea Nitrogen 30 mg/dL (8-26); Calcium 8.6 mg/dL (8.6-10.8); Carbon Dioxide 28 mEq/L (19-29); Chloride 107 mEq/L (98-109); Chol/HDL Ratio 3.6 (0-4.9); Cholesterol 134 mg/dL (< 200); Glucose 141 mg/dL (70-99); HDL Cholesterol 37 mg/dL (40-59); LDL Cholesterol,Calculated 72 mg/dL (0-99); Osmolality,Calculated 297 (280-300); Potassium 4.3 mEq/L (3.5-4.5); Sodium 139 mEq/L (136-145); Triglycerides 124 mg/dL (< 150); eGFR For African Americans > 60 (> 60); eGFR For Non-African Americans 58 (> 60)
[2017-03-18] MEDS: *HR* OxyCODONE Immed Rel 5 MG TABLET PO PRN ×2 (04:48→12:11)
[2017-03-18] MEDS ORDERED: *HR* Heparin 5,000 UNIT/ML VIAL SQ SCH (06:00)
[2017-03-18] MEDS: Ondansetron 4 MG/2 ML VIAL IVP PRN (06:05)
[2017-03-18] MEDS: Insulin LISPRO 300 UNITS/3 ML VIAL SQ SCH ×2 (08:53→12:21)
[2017-03-18] MEDS ORDERED: Gabapentin 300 MG CAPSULE PO SCH (09:00)
[2017-03-18] MEDS ORDERED: Aspirin 81 MG TAB.CHEW PO SCH (09:00)
[2017-03-18] MEDS ORDERED: Ondansetron 4 MG/2 ML VIAL IVP PRN (10:37)
[2017-03-18] MEDS: 0.9 % Sodium Chloride 1,000 ML IVC SCH (12:21)
--- NOTE | 2017-03-18 15:08 | Cardiology Consult Note ---
Date of Encounter: 03/18/17 Time of Encounter: 15:00 Assessment and Plan (1) Chest pain Current Visit: Yes Status: Acute Atypical, suspect this is unlikely to be angina. Nevertheless, he has ruled out for an IN and recent cardiac testing without indication for LHC. He is willing to trial Ranexa for antianginal. Also discussed CoQ10 enzyme supplementation (virtually no risk to try). No further workup from cardiology standpoint. Will sign off and schedule fu in clinic. Qualifiers: Chest pain type: unspecified Qualified Code(s): R07.9 - Chest pain, unspecified (2) Pancytopenia Current Visit: Yes Status: Acute Workup per primary team (3) CAD (coronary artery disease) of bypass graft Current Visit: No Status: Chronic Continue medical management. Aspirin 81mg daily, if tolerated and lipitor daily. Qualifiers: [place] vs. transplanted heart: [place] heart Associated angina: with unspecified angina Qualified Code(s): I25.709 - Atherosclerosis of coronary artery bypass graft(s), unspecified, with unspecified angina pectoris Discussion w patient/family: The assessment and plan as outlined above was discussed with the patient and/or family members who expressed understanding and agreement. All questions were answered. Thank you for involving us in the care of your patient. Please call with any questions. History of Present Illness Consult date: 03/18/17 History of present illness: Mr. Grewal is a 61 year old male with CAD sp CABG and LAUGHLIN LAD as only patent vessel with intolerance to nitrates, BB, CCB presenting with severe chest discomfort 10/10 that was only relieved with fentanyl (for which he is requesting more). He notes chronic angina which can happen at rest or with exertion which is retrosternal and usually lasts an hour or two. -11/2015 Nuclear stress test negative for ischemia or infarct. -07/2016 Echo with LVEF 55-60%, atypical septal motion consistent with bundle branch block, right ventricle appears midly dilated, normal RV function, mild TR , mild PH, interatrial septum is mildly aneurysmal, no evidence of intracardiac shunting with agitated saline contrast, all wall segments with normal motion. -Last [facility] 2011 with proximal LAD 100%, luminal irregularities mid to distal LAD , 20-30% proximal to mid OM, luminal irregularities in circumflex, 100% proximal RCA, LAUGHLIN to LAD patent, SVG to mid PDA occluded, good quality collaterals from this septal to mid PL were present. -Echo 01/02/17 with LVEF 55-60%, RV mildly dilated with normal function, mild to moderately dilated left atrium, atypical septal motion consistent with paced rhythm, NO evidence of PFO, mild TR, mild PH. Past Med Surg Social Fam HX - Past Medical History Medical history: cirrhosis, CHF, coronary artery disease, CVA, diabetes, GERD, hypertension, myocardial infarction, thyroid disease, other Psychiatric history: no psych history - Past Surgical History Surgical History: appendectomy, cholecystectomy, coronary bypass (CABG), orthopedic, other, pacemaker/AICD - Social History Smoking Status: Never smoker Smokeless Tobacco Status: No Alcohol use: none Drug use: none - Family History Mother Living Status: Hx Family Cardiac Disorders: No Medications and Allergies Levothyroxine [Synthroid] 50 mcg PO QAM 04/08/15 [History] Omeprazole [PriLOSEC] 40 mg PO DAILY 04/08/15 [History] Ropinirole HCl [Requip Xl] 4 mg PO HS 04/08/15 [History] Promethazine [Phenergan] 25 mg PO TID 12/03/15 [History] Gabapentin [Neurontin] 600 mg PO DAILY 08/03/16 [History] Oxycodone HCl 10 mg PO Q6H PRN 08/03/16 [History] Tizanidine HCl 2 mg PO BID PRN 08/03/16 [History] Aspirin 81 mg PO DAILY #30 tab.chew 08/06/16 [Rx] Fluticasone Propionate Nasal [Flonase] 1 spray NS DAILY 01/01/17 [History] Atorvastatin [Lipitor] 40 mg PO HS 03/17/17 [History] 3 Allergy/AdvReac Type Severity Reaction Status Date / Time morphine Allergy Intermediate Hives Verified 03/17/17 12:49 codeine Allergy Mild Itching Verified 03/17/17 12:49 Penicillins AdvReac Intermediate COMA Verified 03/17/17 12:49 nitroglycerin AdvReac Mild LOW BLOOD Verified 03/17/17 12:49 PRESSURE NITRATES Allergy Mild Itching Uncoded 03/17/17 12:49 NUBAIN Allergy Mild Itching Uncoded 03/17/17 12:49 All Systems Review: A 10-system review of systems was performed and is negative for pertinent findings except as documented above in the HPI. - Constitutional Constitutional: no chills, no fever(s) - EENT Eyes: no blurred vision, no loss of vision Nose, mouth and throat: no bleeding gums, no epistaxis - Cardiovascular Cardiovascular: chest pain at rest, chest pain with exertion, no rapid heart rate, no slow heart rate - Respiratory Respiratory: no hemoptysis, no wheezing - Gastrointestinal Gastrointestinal: no hematemesis, no hematochezia - Genitourinary Genitourinary: no dysuria, no hematuria - Musculoskeletal Musculoskeletal: no arthralgias, no myalgias - Integumentary Integumentary: no erythema, no rash - Neurological Neurological: no syncope, no tingling - Psychiatric Psychiatric: no hallucinations, no panic attacks - Hematological/Lymphatic Hematologic/Lymphatic: no easy bleeding, no easy bruising Physical Examination Vital Signs, Last 4 Hours Temp Pulse Resp BP Pulse Ox 03/18/17 11:31 98.0 F 54 17 159/81 100 General: Conversant HEENT: Atraumatic Neck: No JVD Cardiac: Reg Rate and Rhythm Lungs: Normal Breath Sounds Neuro: Alert and responsive Abdomen: Soft Skin: No rashes noted on visualized skin Musculoskeletal: No Chest Wall Tenderness Extremities: No Edema Results 03/18/17 01:14 03/18/17 01:14 Lab Results 03/17/17 03/18/17 03/18/17 19:11 01:14 01:14 WBC 3.6 L Hgb 9.5 L D Hct 31.3 L Plt Count 100 L Sodium Potassium Chloride Carbon Dioxide BUN Creatinine Glucose Calcium Troponin I 0.01 0.01 TSH 03/18/17 03/18/17 01:14 01:14 WBC Hgb Hct Plt Count Sodium 139 Potassium 4.3 Chloride 107 Carbon Dioxide 28 BUN 30 H Creatinine 1.26 H Glucose 141 H Calcium 8.6 Troponin I TSH 5.795 H - EKG Interpretation EKG results cardiology: personally reviewed Consult Discharge Plan - Plan Referrals: Niko Knight MD [Primary Care Provider] -
[2017-03-18 15:15] VITALS: BP 133/72
--- NOTE | 2017-03-18 15:39 | Discharge Summary ---
Date of Encounter: 03/18/17 Time of Encounter: 15:37 - Discharge Diagnosis (1) Chest pain Priority: Primary Status: Acute Comments: atypical chest pain Qualifiers: Chest pain type: chest pain due to myocardial ischemia Ischemic chest pain type: stable angina pectoris Qualified Code(s): I20.8 - Other forms of angina pectoris (2) CAD (coronary artery disease) of bypass graft Priority: Secondary Status: Chronic Comments: -11/2015 Nuclear stress test negative for ischemia or infarct. -07/2016 Echo with LVEF 55-60%, atypical septal motion consistent with bundle branch block, right ventricle appears midly dilated, normal RV function, mild TR , mild PH, interatrial septum is mildly aneurysmal, no evidence of intracardiac shunting with agitated saline contrast, all wall segments with normal motion. -Last [facility] 2011 with proximal LAD 100%, luminal irregularities mid to distal LAD , 20-30% proximal to mid OM, luminal irregularities in circumflex, 100% proximal RCA, LAUGHLIN to LAD patent, SVG to mid PDA occluded, good quality collaterals from this septal to mid PL were present. -Echo 01/02/17 with LVEF 55-60%, RV mildly dilated with normal function, mild to moderately dilated left atrium, atypical septal motion consistent with paced rhythm, NO evidence of PFO, mild TR, mild PH. Qualifiers: [place] vs. transplanted heart: [place] heart Associated angina: with unspecified angina Qualified Code(s): I25.709 - Atherosclerosis of coronary artery bypass graft(s), unspecified, with unspecified angina pectoris (3) Cirrhosis Priority: Secondary Status: Chronic Qualifiers: Hepatic cirrhosis type: unspecified hepatic cirrhosis Ascites presence: without ascites Qualified Code(s): K74.60 - Unspecified cirrhosis of liver (4) History of CVA (cerebrovascular accident) Priority: Secondary Status: Chronic (5) Hypertension Priority: Secondary Status: Chronic Qualifiers: Hypertension type: essential hypertension Qualified Code(s): I10 - Essential (primary) hypertension (6) Hyperlipemia Priority: Secondary Status: Chronic Qualifiers: Hyperlipidemia type: other hyperlipidemia Qualified Code(s): E78.4 - Other hyperlipidemia (7) Diastolic CHF Priority: Secondary Status: Chronic Qualifiers: Congestive heart failure chronicity: chronic Qualified Code(s): I50.32 - Chronic diastolic (congestive) heart failure (8) Hypothyroid Priority: Secondary Status: Chronic Qualifiers: Hypothyroidism type: unspecified Qualified Code(s): E03.9 - Hypothyroidism , unspecified (9) Restless leg syndrome Priority: Secondary Status: Chronic (10) Pancytopenia Priority: Secondary Status: Acute - Discharge Medications Prescriptions: Ranolazine [Ranexa] 500 mg PO BID #60 tab.er.12h Home Medications: Levothyroxine [Synthroid] 50 mcg PO QAM 04/08/15 [History] Omeprazole [PriLOSEC] 40 mg PO DAILY 04/08/15 [History] Ropinirole HCl [Requip Xl] 4 mg PO HS 04/08/15 [History] Promethazine [Phenergan] 25 mg PO TID 12/03/15 [History] Gabapentin [Neurontin] 600 mg PO DAILY 08/03/16 [History] Oxycodone HCl 10 mg PO Q6H PRN 08/03/16 [History] Tizanidine HCl 2 mg PO BID PRN 08/03/16 [History] Aspirin 81 mg PO DAILY #30 tab.chew 08/06/16 [Rx] Fluticasone Propionate Nasal [Flonase] 1 spray NS DAILY 01/01/17 [History] Atorvastatin [Lipitor] 40 mg PO HS 03/17/17 [History] Ranolazine [Ranexa] 500 mg PO BID #60 tab.er.12h 03/18/17 [Rx] Allergies/Adverse Reactions: 3 Allergy/AdvReac Type Severity Reaction Status Date / Time morphine Allergy Intermediate Hives Verified 03/17/17 12:49 codeine Allergy Mild Itching Verified 03/17/17 12:49 Penicillins AdvReac Intermediate COMA Verified 03/17/17 12:49 nitroglycerin AdvReac Mild LOW BLOOD Verified 03/17/17 12:49 PRESSURE NITRATES Allergy Mild Itching Uncoded 03/17/17 12:49 NUBAIN Allergy Mild Itching Uncoded 03/17/17 12:49 Procedures/tests Complete & Pending: Procedures Performed prior 72 hours Category Date Time Status ECG 12 lead ECG [ECG] Routine Y 03/17/17 14:36 Completed EKG [ECG 12 lead ECG] [ECG] Stat Y 03/17/17 18:49 Completed Date of admission: 03/17/17 16:13 Primary care physician: Niko Knight MD Consults: 03/17/17 20:28 Consult to Cardiology [CONS] Routine Comment: Consulting Provider: Cardiology Erica Reason for Consult: CP Time Notified: 20:28 Call Completed: No - Patient Status Disposition: Home, Self-Care Condition: Fair Overall status at discharge: patient is back to baseline - Discharge Instructions Follow Up With: Niko Knight MD [Primary Care Provider] - Additional Instructions: Follow-up with primary care physician within the next 7 days. Follow-up with cardiology within the next 2 weeks. Start Ranexa - Diet and Activity Activity: increase activity as tolerated Diet: low fat, low cholesterol Hospital course: Mr. Grewal is a 61 year old male past medical history of cirrhosis, diastolic CHF coronary artery disease with CABG in 1990 , sick sinus syndrome with pacemaker ,CVA, diabetes insulin-dependent, hypertension, hypothyroidism. According to the patient he was at the [facility] for cataract follow-up when he began to experience acute onset of crushing midsternal nonradiating chest pain. 10 out of 10. He became light headed dizzy nauseated and vomited a few times. He also experienced abdominal distention and pain. He does have a history of chronic nausea that he takes Phenergan for however he felt this was worse than usual. He denied any headaches or vision changes or loss of consciousness. There was no hematemesis. He came to the ER for evaluation of coronary ER records and lab work did reveal creatinine 1.46 history per was near his lipase is 46 his mag was 1.8. CTA of abdomen and pelvis was negative for any chest or abdominal abnormalities. EKG with no ST-T wave abnormalities, chest x-ray with no acute process. He was given fentanyl for his pain which did improve and Zofran for nausea. The patient has a history of chronic chest pain. He has been placed on multiple anginal medications in the past and has been intolerant of all of them. Said he is unable take Ranexa due to syncope, CCB's and beta blockers, nitrates due to hypotension, aspirin due to bleeding per prior records. He does not take sublingual nitroglycerin due to hypotension and headaches. He is also allergic to morphine. He was seen here in December for chest pain his workup at that time was negative he did have a heart catheter in 2011 with proximal LAD 100% luminal irregularities mid to distal LAD, 30% proximal to mid OM, luminal irregularities to circumflex, 100% proximal RCA, LAUGHLIN to LAD patent, PDA occluded, good quality collaterals from the septal to mid PL were present. Echo 01/02/17 with EF 5560% RV mildly dilated with normal function mild to moderately dilated left atrium atypical septal motion consistent with paced rhythm, no evidence of PFO mild TR mild pH. The patient was evaluated by cardiology, she agreed to try Ranexa/low dose and follow up with cardiology as an outpatient. Stable to be discharged - Time Spent with Patient Total time spent providing and/or coordinating discharge services: Greater than 30 minutes (40 min) - Constitutional Vitals: Temp Pulse Resp BP Pulse Ox 98.0 F 60 16 133/72 99 03/18/17 15:15 03/18/17 15:15 03/18/17 15:15 03/18/17 15:15 03/18/17 15:15 General appearance: Present: A&O X 3, morbidly obese, answers questions appropriately - Head Head exam: Present: atraumatic, normocephalic - Eye Eye exam: Present: PERRL, conjuntiva pink, sclera anicteric Pupils: Present: PERRL - Neck Neck exam general surgery: Present: supple, trachea midline. Absent: lymphadenopathy - Respiratory Respiratory exam: Present: CTAB. Absent: accessory muscle use, rales, rhonchi, wheezes - Cardiovascular Cardiovascular exam: Present: RRR, +S1, +S2. Absent: diastolic murmur, gallop, rubs, systolic murmur - GI/Abdominal GI/Abdominal exam: Present: normal bowel sounds, soft, no peritoneal signs. Absent: distended, tenderness - Extremities Exam Extremities exam: Present: warm, radial pulses palpable and symmetrical. Absent : calf tenderness, cyanotic, pedal edema - Neurological Exam Neurological exam: Present: CN II-XII intact, oriented X3, no focal deficits. Absent: pronater drift, facial droop, speech deficit - Skin Skin exam: Present: dry, intact
--- NOTE | 2017-03-18 16:35 | Electrocardiograph Report ---
[place] [address] Test Date: 2017-03-17 Pat Name: Ar Grewal Department: 104 Room: 3B43 Gender: M Community Health Education Coordinator: ROHAN : 1955 Requested By: Kelsea Low Order Number: [id number] Reading MD: Lizzy Joshi Measurements Intervals [place] Rate: 49 P: -15 CO: 175 QRS: -31 QRSD: 152 T: 69 QT: 461 QTc: 432 Interpretive Statements ELECTRONIC ATRIAL PACEMAKER MARKED LEFT AXIS DEVIATION RIGHT BUNDLE BRANCH BLOCK Electronically Signed On 03-18-2017 16:34:00 EDT by Lizzy Joshi
--- NOTE | 2017-03-18 16:37 | Electrocardiograph Report ---
[address] [address] Test Date: 2017-03-17 Pat Name: Ar Grewal Department: 113 Room: 3B43 Gender: M Last Sawyer: KEN : 1955 Requested By: Lacey Thompson Order Number: [id number] Reading MD: Lizzy Joshi Measurements Intervals [place] Rate: 52 P: -85 MA: 182 QRS: -11 QRSD: 154 T: 60 QT: 466 QTc: 447 Interpretive Statements ELECTRONIC ATRIAL PACEMAKER RIGHT BUNDLE BRANCH BLOCK Electronically Signed On 03-18-2017 16:35:53 EDT by Lizzy Joshi
--- NOTE | 2017-03-18 16:41 | Physician Discharge Referral ---
Home Health/Hosp Referral Info Transfer to: Home Health Provider in Charge Post Discharge: PCP - Diagnosis (1) Chest pain Status: Acute (2) CAD (coronary artery disease) of bypass graft Status: Chronic (3) Cirrhosis Status: Chronic (4) History of CVA (cerebrovascular accident) Status: Chronic (5) Hypertension Status: Chronic (6) Hyperlipemia Status: Chronic (7) Diastolic CHF Status: Chronic (8) Hypothyroid Status: Chronic (9) Restless leg syndrome Status: Chronic (10) Pancytopenia Status: Acute - Respiratory Orders Smoking Cessation: Smoking cessation has been advised. For more information, call the [place] Quit Line at 1-691-UZXW-NOW. - Diet/Nutrition Diet/Nutrition Orders: Cardiac Other Treatments: Follow-up with primary care physician within the next 7 days. Follow-up with cardiology within the next 2 weeks. Start Ranexa - Transfer Medications Prescriptions: Ranolazine [Ranexa] 500 mg PO BID #60 tab.er.12h Home Medications: Levothyroxine [Synthroid] 50 mcg PO QAM 04/08/15 [History] Omeprazole [PriLOSEC] 40 mg PO DAILY 04/08/15 [History] Ropinirole HCl [Requip Xl] 4 mg PO HS 04/08/15 [History] Promethazine [Phenergan] 25 mg PO TID 12/03/15 [History] Gabapentin [Neurontin] 600 mg PO DAILY 08/03/16 [History] Oxycodone HCl 10 mg PO Q6H PRN 08/03/16 [History] Tizanidine HCl 2 mg PO BID PRN 08/03/16 [History] Aspirin 81 mg PO DAILY #30 tab.chew 08/06/16 [Rx] Fluticasone Propionate Nasal [Flonase] 1 spray NS DAILY 01/01/17 [History] Atorvastatin [Lipitor] 40 mg PO HS 03/17/17 [History] Ranolazine [Ranexa] 500 mg PO BID #60 tab.er.12h 03/18/17 [Rx] Allergies/Adverse Reactions: 3 Allergy/AdvReac Type Severity Reaction Status Date / Time morphine Allergy Intermediate Hives Verified 03/17/17 12:49 codeine Allergy Mild Itching Verified 03/17/17 12:49 Penicillins AdvReac Intermediate COMA Verified 03/17/17 12:49 nitroglycerin AdvReac Mild LOW BLOOD Verified 03/17/17 12:49 PRESSURE NITRATES Allergy Mild Itching Uncoded 03/17/17 12:49 NUBAIN Allergy Mild Itching Uncoded 03/17/17 12:49 Certification: Further, I certify that my clinical findings support that this patient is homebound (i.e. absences from home require considerable and taxing effort and are for medical reasons or hoahaoism services or infrequently or short duration when for other reasons) because: Homebound Reason: Patient requires assistance of a person or device to safely leave home Attestation: My signature below is to certify that this patient is under my care and that I, or nurse practitioner, or a physician's legal executive assistant working with me, has a face-to -face encounter with this patient.
[2017-03-18] MEDS ORDERED: Ranolazine 500 MG TAB.ER.12H PO SCH (21:00)
== END 2017-03-18 16:54 | disposition home or self-care (01) ==
LOC: 3BNU 12:45 → EMEROO 12:45 → 3BNU 17:12
PROVIDERS: ADMIT Internal Medicine; ATTEND Registered Nurse

== ENCOUNTER 2017-06-10 09:42 | Inpatient (IN) ==
[2017-06-10 10:04] LABS: Hematocrit 39.4 % (37.5-50.1); Hemoglobin 12.6 g/dL (12.9-16.9); Immature Granulocytes % 0.2 % (0-4); Lymphocytes # 1.6 K/mcL (0.6-4.6); Lymphocytes % 17.8 %; Mean Corpuscular Hemoglobin 29.9 pg (28.0-33.3); Mean Corpuscular Volume 93.4 fL (83.0-100.0); Mean Platelet Volume 9.7 fL (9.4-12.4); Monocytes # 0.5 K/mcL (0.0-1.3); Monocytes % 5.8 %; Neutrophils # 6.7 K/mcL (1.6-8.9); Platelet Count 147 K/mcL (140-400); Red Blood Count 4.22 M/mcL (4.19-5.50); Red Cell Distribution Width 15.2 % (11.5-14.5); Segmented Neutrophils % 76.2 %
--- NOTE | 2017-06-10 10:18 | Emergency Department Note ---
Disposition Clinical Impression: Chest pain Qualifiers: Chest pain type: unspecified Qualified Code(s): R07.9 - Chest pain, unspecified Syncope Qualifiers: Syncope type: unspecified Qualified Code(s): R55 - Syncope and collapse Renal failure, acute on chronic Qualifiers: Acute renal failure type: unspecified Chronic kidney disease stage: unspecified stage Qualified Code(s): N17.9 - Acute kidney failure, unspecified; N18.9 - Chronic kidney disease, unspecified; N18.9 - Chronic kidney disease, unspecified Disposition: Admitted As Inpatient Time of Disposition: 10:42 Chest Pain HPI - General Chief Complaint: ED Chest Pain Stated Complaint: chest pain Time Seen by Provider: 06/10/17 09:52 Source: patient Vital Signs Reviewed: Yes Nursing Notes Reviewed: Yes - History of Present Illness HPI Narrative: I did review the previous records and the patient does have a history of bypass surgery and presents today with chest pain which is a heaviness and began yesterday intermittently and has been constant today and is not worse with exertion. Does have associated dyspnea. Does radiate to the back which is typical when he has his chest pain. He has had negative CTA scans 3 over the last year. He denies any pleuritic aspect of his pain. He did have a syncopal episode yesterday which was preceded by nausea and thinks he passed out onto his bed because that is where he woke up. He is unaware of any seizure or shaking activity, biting of the tongue or blood in the mouth or loss of urine. He does have chronic numbness left lower extremity and does use a cane and does have chronic left hip pain but no new numbness or weakness of the extremities. No slurred speech, facial droop or confusion. He has been coughing up thick green sputum for the last several weeks and does have rhinorrhea. No sneezing. No fever or blurred vision. No blood in the urine or stool. No skin rash. Does have easy bruising of the skin but nothing new. Social history: No smoking , no alcohol. Family history: Positive for heart disease Severity scale (1-10): 9 - Related Data Home Medications Medication Instructions Recorded Confirmed Levothyroxine [Synthroid] 50 mcg PO QAM 04/08/15 06/10/17 Omeprazole [PriLOSEC] 40 mg PO BID 04/08/15 06/10/17 Promethazine [Phenergan] 25 mg PO TID PRN 12/03/15 06/10/17 Gabapentin [Neurontin] 900 mg PO TID 08/03/16 06/10/17 Oxycodone HCl 10 mg PO BID 08/03/16 06/10/17 Tizanidine HCl 4 mg PO QPM 08/03/16 06/10/17 Atorvastatin [Lipitor] 40 mg PO HS 03/17/17 06/10/17 Ropinirole HCl [Requip] 4 mg PO HS 05/01/17 06/10/17 Trazodone HCl 100 - 200 mg PO HS 05/01/17 06/10/17 DULoxetine [Cymbalta] 30 mg PO DAILY 06/10/17 06/10/17 Previous Rx's Medication Instructions Recorded Aspirin 81 mg PO DAILY #30 tab.chew 08/06/16 Allergies Allergy/AdvReac Type Severity Reaction Status Date / Time morphine Allergy Intermediate Hives Verified 06/10/17 10:53 codeine Allergy Mild Itching Verified 06/10/17 10:53 Penicillins AdvReac Severe COMA Verified 06/10/17 10:53 nitroglycerin AdvReac Mild LOW BLOOD Verified 06/10/17 10:53 PRESSURE NITRATES Allergy Mild Itching Uncoded 06/10/17 10:53 NUBAIN Allergy Mild Itching Uncoded 06/10/17 10:53 Review of Systems: As Per HPI Chest Pain PMH - Past Medical History Medical history: Reports: cirrhosis, CHF, coronary artery disease, CVA, diabetes , GERD, hypertension, myocardial infarction, thyroid disease, other Surgical history: Reports: appendectomy, cholecystectomy, coronary bypass (CABG) , orthopedic, other, pacemaker/AICD Psychiatric history: Reports: no psych history - Social History Smoking Status: Never smoker Alcohol use: Reports: none Drug use: Reports: none Physical Exam CONSTITUTIONAL: Well-appearing; well-nourished; A&O X3, in no apparent distress HEAD: Normocephalic; atraumatic. EYES: PERRL, EOMI, no scleral icterus NOSE: The nose is normal in appearance without rhinorrhea NECK: Supple without rigidity, no FERNANDA RESP: Normal chest excursion with respiration; breath sounds clear and equal bilaterally; no wheezes, rhonchi, or rales CARD: Regular rhythm, without murmurs, rub or gallop ABD: Non-distended; non-tender, soft, without rigidity, rebound or guarding SKIN: Normal for age and race; warm and dry; no apparent lesions, no rash NEUROLOGICAL: Patient is alert and oriented times three. Cranial nerves III- XII are intact. Sensory and motor functions are intact. Strength is 5/5 for flexion and extension in all 4 extremities. Patellar DTRS are equal and intact. Finger to nose testing is equal and normal bilaterally. EXTREMITIES: Pulses are 2 plus and equal times 4 extremities, no peripheral edema or calf muscle pain. - General General appearance: alert Course Vital Signs Temperature 98.3 F 06/10/17 09:44 Pulse Rate 90 06/10/17 09:44 Respiratory Rate 14 06/10/17 09:44 Blood Pressure 158/99 06/10/17 09:44 O2 Sat by Pulse Oximetry 98 06/10/17 09:44 Temperature 98.3 F 06/10/17 10:27 Pulse Rate 91 06/10/17 10:27 Respiratory Rate 14 06/10/17 10:27 Blood Pressure 147/96 06/10/17 10:27 O2 Sat by Pulse Oximetry 97 06/10/17 10:27 Oxygen Delivery Oxygen Delivery Room Air Chest Pain - MDM Narrative Medical decision making narrative: Patient is well appearance. I did review his EKG showing one element of sinus arrhythmia but does have evidence also of right bundle branch block and Q waves abnormality. He appears to previous EKG which is similar appearance the previous EKG was from April. The patient does have a history of syncope with the history of coronary disease and for that reason he will be admitted for possibility of arrhythmia. Labs are pending. Chest x-ray. At this point the patient bright and alert and in no distress. I did discuss further with Dr. Gaines who accepts the patient for admission. 1019 Patient's initial tests are negative. The patient will be admitted. The patient has been seen by the hospitalist. The main concern is arrhythmia which would have caused the syncopal episode and that is the main reason for admission. Patient has had chest pain since yesterday with a negative troponin. I do not suspect pulmonary embolism or aortic dissection. 1041 - Medical Records Medical records reviewed: Yes I reviewed the patient's medical records. - Lab Data Lab results reviewed: Yes I reviewed the patient's lab results. Result diagrams: 06/10/17 09:56 06/10/17 09:56 Lab Results 06/10/17 06/10/17 06/10/17 Range/Units 09:56 09:56 09:56 WBC 8.8 (4.3-11.1) K/mcL RBC 4.22 (4.19-5.50) M/mcL Hgb 12.6 L (12.9-16.9) g/dL Hct 39.4 (37.5-50.1) % MCV 93.4 (83.0-100.0) fL MCH 29.9 (28.0-33.3) pg MCHC 32.0 (31.6-35.5) g/dL RDW 15.2 H (11.5-14.5) % Plt Count 147 (140-400) K/mcL MPV 9.7 (9.4-12.4) fL Immature Gran % 0.2 (0-4) % Seg Neutrophils % 76.2 % Lymphocytes % 17.8 % Monocytes % 5.8 % Eosinophils % 0.0 % Basophils % 0.0 % Neutrophils # 6.7 (1.6-8.9) K/mcL Lymphocytes # 1.6 (0.6-4.6) K/mcL Monocytes # 0.5 (0.0-1.3) K/mcL Eosinophils # 0.0 (0.0-0.6) K/mcL Basophils # 0.0 (0.0-0.2) K/mcL Sodium 137 (136-145) mEq/L Potassium 4.2 (3.5-4.5) mEq/L Chloride 100 (98-109) mEq/L Carbon Dioxide 23 (19-29) mEq/L BUN 54 H (8-26) mg/dL Creatinine 2.04 H (0.72-1.25) mg/dL Est GFR ( Amer) 40 L (> 60) Est GFR (Non-Af Amer) 33 L (> 60) BUN/Creatinine Ratio 26 (6-26) Glucose 150 H (70-99) mg/dL Calculated Osmolality 302 H (280-300) Calcium 9.7 (8.6-10.8) mg/dL Troponin I 0.02 (0-0.03) ng/mL - Radiology Data Radiology results reviewed: Yes I reviewed the patient's radiology results.
[2017-06-10 10:19] LABS: Calcium 9.7 mg/dL (8.6-10.8); Potassium 4.2 mEq/L (3.5-4.5)
[2017-06-10] MEDS ORDERED: Ondansetron ODT 4 MG TAB.RAPDIS SL ONE (10:39)
--- NOTE | 2017-06-10 10:44 | Internal Med History&Physical ---
Date of Encounter: 06/10/17 Time of Encounter: 10:44 Assessment and Plan (1) Chest pain Current visit: No Status: Acute Nonanginal chest pain. Please note patient is allergic nitroglycerin EKG: Multiple pauses noted. This is new as compared to the previous EKG. Echocardiogram: 12/2016: Left ventricular ejection fraction: 60%, mildly dilated right ventricle, moderate dilation of the left atrium, atypical septal motion consistent with paced rhythm Nuclear stress test: 11/2015: Negative for ischemia/infarct. Cardiac: 2012: Proximal LAD 100%, LAUGHLIN to LAD patent, SVG to made PDA occluded, good-quality collaterals. Plan: We will cycle troponin. We will repeat EKG. If troponin shows trending upwards then we will call cardiology for further evaluation. His EKG shows worsening of those pauses then we will get cardiology for further evaluation Qualifiers: Chest pain type: unspecified Qualified Code(s): R07.9 - Chest pain, unspecified (2) CAD (coronary artery disease) Current visit: No Status: Chronic Please see above Qualifiers: Coronary Disease-Associated Artery/Lesion type: [place] artery [place] vs. transplanted heart: [place] heart Associated angina: with unspecified angina Qualified Code(s): I25.119 - Atherosclerotic heart disease of [place] coronary artery with unspecified angina pectoris (3) Syncope Current visit: No Status: Resolved The reason for syncope is not clear at this point. Will continue workup. Close monitoring. If the pauses in the EKG get was then we will call urology for further evaluation because the possibility that cardiac etiology is very high for his syncopal episode Qualifiers: Syncope type: unspecified Qualified Code(s): R55 - Syncope and collapse (4) Cirrhosis Current visit: No Status: Chronic Stable cirrhosis. Qualifiers: Hepatic cirrhosis type: other cirrhosis Qualified Code(s): K74.69 - Other cirrhosis of liver (5) Diabetes mellitus Current visit: No Status: Chronic 2 diabetes mellitus. We will follow the subcutaneous insulin orders and protocol. 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 Qualifiers: Hypertension type: essential hypertension Qualified Code(s): I10 - Essential (primary) hypertension (7) Hyperlipemia Current visit: No Status: Chronic We will resume statins. Qualifiers: Hyperlipidemia type: unspecified Qualified Code(s): E78.5 - Hyperlipidemia , unspecified (8) OLEG (acute kidney injury) Current visit: No Status: Acute Elevated creatinine likely secondary to the acute kidney injury. We will start him on IV fluids. We will recheck labs tomorrow. (9) DVT prophylaxis Current visit: No Status: Acute SCD Medical decision making: This patient has a moderate to severe risk of worsening in spite of being on appropriate treatment due to the underlying complex medical comorbid issues Internal Medicine - H&P: HPI Chief complaint: Chest pain Admitted From: Emergency Dept Plans for Post Hospital Care: Home History of present illness: PCP: Dr. Knight from [facility] Cardiology: Dr. Lizzy Conley Brief past medical illness: cirrhosis, CHF, coronary artery disease, CVA, diabetes, GERD, hypertension, myocardial infarction, thyroid disease History of present medical illness: Patient was complaining of chest pain which was precordial in location, sharp in nature, radiating to the left shoulder along with the left arm, getting exacerbated by movement and activity and relieved by rest. Patient had a chest pain for last 24 hours. 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 Since this morning patient also started complaining of dizziness and he had an episode of complete pass out for more than 10 minutes. Patient denies shortness of breath, nausea, vomiting, abdominal pain, diarrhea and dizziness. Workup in the emergency room: Patient was evaluated in the emergency room, basic labs were drawn. EKG was suggestive of few pauses. Reason for admission: Syncopal episode, TIA to rule out CVA. Chest pain to rule out ACS. Past Med Surg Social Fam HX - Past Medical History Medical history: cirrhosis, CHF, coronary artery disease, CVA, diabetes, GERD, hypertension, myocardial infarction, thyroid disease, other Psychiatric history: no psych history - Past Surgical History Surgical History: appendectomy, cholecystectomy, coronary bypass (CABG), orthopedic, other, pacemaker/AICD - Social History Smoking Status: Never smoker Smokeless Tobacco Status: No Alcohol use: none Drug use: none - Family History Father Living Status: Brother Living Status: Hx Family Cardiac Disorders: Yes Mother Living Status: Hx Family Cardiac Disorders: No Internal Medicine - H&P: Meds Levothyroxine [Synthroid] 50 mcg PO QAM 04/08/15 [History] Omeprazole [PriLOSEC] 40 mg PO BID 04/08/15 [History] Promethazine [Phenergan] 25 mg PO TID PRN 12/03/15 [History] Gabapentin [Neurontin] 900 mg PO TID 08/03/16 [History] Oxycodone HCl 10 mg PO BID 08/03/16 [History] Tizanidine HCl 4 mg PO QPM 08/03/16 [History] Aspirin 81 mg PO DAILY #30 tab.chew 08/06/16 [Rx] Atorvastatin [Lipitor] 40 mg PO HS 03/17/17 [History] Ropinirole HCl [Requip] 4 mg PO HS 05/01/17 [History] Trazodone HCl 100 - 200 mg PO HS 05/01/17 [History] DULoxetine [Cymbalta] 30 mg PO DAILY 06/10/17 [History] 3 Allergy/AdvReac Type Severity Reaction Status Date / Time morphine Allergy Intermediate Hives Verified 06/10/17 10:53 codeine Allergy Mild Itching Verified 06/10/17 10:53 Penicillins AdvReac Severe COMA Verified 06/10/17 10:53 nitroglycerin AdvReac Mild LOW BLOOD Verified 06/10/17 10:53 PRESSURE NITRATES Allergy Mild Itching Uncoded 06/10/17 10:53 NUBAIN Allergy Mild Itching Uncoded 06/10/17 10:53 All Systems PM: A 10-system review of systems was performed and is negative for pertinent findings except as documented above in the HPI. - Constitutional Constitutional: no chills, no fever(s), no night sweats - EENT Eyes: no change in vision, no discharge, no pain, no photophobia Ears: no ear discharge, no ear pain, no tinnitus Nose, mouth and throat: no dysphagia, no nasal discharge, no neck pain, no sore throat - Cardiovascular Cardiovascular ROS IM: chest pain, diaphoresis, lightheadedness, palpitations, no dyspnea, no syncope - Respiratory Respiratory: no cough, no dyspnea, no wheezing, no excessive phlegm production - Gastrointestinal Gastrointestinal: no abdominal pain, no diarrhea, no hematemesis, no hematochezia, no melena, no nausea, no vomiting - Musculoskeletal Musculoskeletal ROS IM: no numbness, no tingling - Integumentary Integumentary IM: no rash, no unusual bruising - Neurological Neurological ROS: abnormal gait, dizziness, no confusion, no convulsions, no focal weakness, no numbness, no tingling, no tremor(s) - Hematologic/Lymphatic Hematologic/Lymphatic: no easy bruising - Constitutional Vitals: Temp Pulse Resp BP Pulse Ox 98.3 F 91 14 147/96 97 06/10/17 10:27 06/10/17 10:27 06/10/17 10:27 06/10/17 10:27 06/10/17 10:27 General appearance: Present: A&O X 3, pleasant, no acute distress, answers questions appropriately - Head Head exam: Present: atraumatic, normocephalic - Eye Eye exam: Present: PERRL, conjuntiva pink, sclera anicteric Pupils: Present: PERRL - Neck Neck exam general surgery: Present: supple, trachea midline. Absent: lymphadenopathy - Respiratory Respiratory exam: Present: CTAB. Absent: accessory muscle use, rales, rhonchi, wheezes - Cardiovascular Cardiovascular exam: Present: RRR, +S1, +S2. Absent: diastolic murmur, gallop, rubs, systolic murmur - GI/Abdominal GI/Abdominal exam: Present: normal bowel sounds, soft, no peritoneal signs. Absent: distended, tenderness - Extremities Exam Extremities exam: Present: warm, radial pulses palpable and symmetrical. Absent : calf tenderness, cyanotic, pedal edema - Neurological Exam Neurological exam: Present: CN II-XII intact, oriented X3, no focal deficits. Absent: pronater drift, facial droop, speech deficit - Skin Skin exam: Present: dry, intact Internal Med - H&P Results - Labs CBC & Chem 7: 06/10/17 09:56 06/10/17 09:56 Labs: Short CBC 06/10/17 Range/Units 09:56 WBC 8.8 (4.3-11.1) K/mcL Hgb 12.6 L (12.9-16.9) g/dL Hct 39.4 (37.5-50.1) % Plt Count 147 (140-400) K/mcL Neutrophils # 6.7 (1.6-8.9) K/mcL BMP 06/10/17 09:56 Sodium 137 Potassium 4.2 Chloride 100 Carbon Dioxide 23 BUN 54 H Creatinine 2.04 H Glucose 150 H Calcium 9.7 Cardiac Enzymes 06/10/17 Range/Units 09:56 Troponin I 0.02 (0-0.03) ng/mL - Impressions ITS Impressions Chest X-Ray 06/10/17 09:56 IMPRESSION: No acute cardiopulmonary process. D/ / Silviano Garcia MD / Silviano Garcia MD Interpreting Provider: Silviano Garcia MD
[2017-06-10] MEDS ORDERED: Naloxone 0.4 MG/ML INJ IVP PRN (10:45)
[2017-06-10] MEDS ORDERED: *HR* Dextrose 50 % in Water (Syg) 50 ML SYRINGE IVP PRN (11:12)
[2017-06-10] MEDS ORDERED: D5% in Water 1,000 ML IVC PRN (11:12)
[2017-06-10] MEDS ORDERED: Dextrose Gel 15 GM PO PRN ×2 (11:12)
[2017-06-10] MEDS: Insulin LISPRO 300 UNITS/3 ML VIAL SQ SCH ×2 (12:43→17:05)
[2017-06-10] MEDS: *HR* OxyCODONE Immed Rel 5 MG TABLET PO PRN ×2 (12:58→19:31)
[2017-06-10] MEDS: 0.9 % Sodium Chloride 1,000 ML IVC SCH (14:39)
[2017-06-10] MEDS: Gabapentin 300 MG CAPSULE PO SCH ×2 (16:57→21:38)
[2017-06-10] MEDS: *HR* HYDROmorphone 2 MG/ML SYRINGE IVP PRN ×2 (16:57→21:46)
[2017-06-10] MEDS: Ondansetron 4 MG/2 ML VIAL IVP PRN (16:57)
--- NOTE | 2017-06-10 20:21 | Electrocardiograph Report ---
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
[2017-06-10] MEDS ORDERED: traZODone 50 MG TABLET PO SCH (21:00)
[2017-06-10] MEDS: rOPINIRole 1 MG TABLET PO SCH (21:37)
[2017-06-10] MEDS: Ranolazine 500 MG TAB.ER.12H PO SCH (21:38)
[2017-06-10] MEDS: tiZANidine 4 MG TABLET PO PRN (21:46)
[2017-06-11] MEDS: 0.9 % Sodium Chloride 1,000 ML IVC SCH ×2 (03:44→06:03)
[2017-06-11 04:29] LABS: Bilirubin,Urine Small (Negative); Blood,Urine Negative (Negative); Clarity,Urine Clear (Clear); Color,Urine Yellow (Yellow); Glucose,Urine (UA) Normal (Normal); Ketones,Urine Negative (Negative); Leukocyte Esterase,Urine Negative (Negative); Nitrite,Urine Negative (Negative); Protein,Urine Negative (Neg-Trace); Specific Gravity,Urine 1.028 (1.010-1.025); Urobilinogen,Urine Normal (Normal)
[2017-06-11] MEDS: *HR* OxyCODONE Immed Rel 5 MG TABLET PO PRN ×3 (04:34→17:15)
[2017-06-11 05:26] LABS: Mean Platelet Volume 10.9 fL (9.4-12.4)
[2017-06-11 05:27] LABS: Eosinophils % 0.3 %; Hematocrit 34.7 % (37.5-50.1); Hemoglobin 10.9 g/dL (12.9-16.9); Immature Granulocytes % 0.3 % (0-4); Immature Platelets 4.3 % (1.1-6.1); Lymphocytes # 1.2 K/mcL (0.6-4.6); Mean Corpuscular HGB Conc 31.4 g/dL (31.6-35.5); Mean Corpuscular Hemoglobin 29.9 pg (28.0-33.3); Mean Corpuscular Volume 95.1 fL (83.0-100.0); Monocytes # 0.3 K/mcL (0.0-1.3); Neutrophils # 2.4 K/mcL (1.6-8.9); Nucleated Red Blood Cells 0.5 /100 WBC (0); Platelet Count 103 K/mcL (140-400); Red Blood Count 3.65 M/mcL (4.19-5.50); Red Cell Distribution Width 15.2 % (11.5-14.5); Segmented Neutrophils % 60.4 %
[2017-06-11 05:39] LABS: INR 1.2; Prothrombin Time 12.5 Seconds (9.4-12.1)
[2017-06-11 05:41] LABS: Activated Partial Thrombo Time 25.2 Seconds (26.0-36.0)
[2017-06-11 05:42] LABS: Albumin 3.3 g/dL (3.5-5.0); Albumin/Globulin Ratio 0.9 (1.1-2.2); Bilirubin,Total 0.4 mg/dL (0.2-1.2); Calcium 8.9 mg/dL (8.6-10.8); Chol/HDL Ratio 4.3 (0-4.9); Globulin 3.6 g/dL (2.4-3.5); Magnesium 2.2 mg/dL (1.6-2.6); Phosphorous 3.9 mg/dL (2.3-4.7); Potassium 4.9 mEq/L (3.5-4.5); Total Protein 6.9 g/dL (6.0-8.3)
[2017-06-11] MEDS: Gabapentin 300 MG CAPSULE PO SCH ×3 (08:52→21:27)
[2017-06-11] MEDS: Insulin LISPRO 300 UNITS/3 ML VIAL SQ SCH ×3 (08:52→17:05)
[2017-06-11] MEDS: Aspirin 81 MG TAB.CHEW PO SCH (08:53)
[2017-06-11] MEDS: Ranolazine 500 MG TAB.ER.12H PO SCH ×2 (08:53→21:27)
[2017-06-11] MEDS: tiZANidine 4 MG TABLET PO PRN (09:10)
[2017-06-11] MEDS: Ondansetron 4 MG/2 ML VIAL IVP PRN ×2 (11:06→18:06)
--- NOTE | 2017-06-11 15:32 | Internal Med Progress Note ---
Date of Encounter: 06/11/17 Time of Encounter: 15:30 - Assessment and plan (1) Chest pain Current Visit: No Status: Acute Assessment and plan: Nonanginal chest pain. EKG: Multiple pauses noted. This is new as compared to the previous EKG. Echocardiogram: 12/2016: Left ventricular ejection fraction: 60 %, mildly dilated right ventricle, moderate dilation of the left atrium, atypical septal motion consistent with paced rhythm. Nuclear stress test: 2015 negative for ischemia/infarct. LHC 2011: Proximal LAD 100%, LAUGHLIN to LAD patent, SVG to made PDA occluded, good-quality collaterals. Serial troponin negative. NPO at midnight, stress test in am Qualifiers: Chest pain type: unspecified Qualified Code(s): R07.9 - Chest pain, unspecified (2) Syncope Current Visit: No Status: Resolved Assessment and plan: Reports episode of near syncope on day of presentation. Occurred the setting of retching, possibly secondary to vasovagal stimulation. Concern for possible sedation with excessive pain medication. Head CT negative. Check carotid Dopplers, orthostatic BPs. Qualifiers: Syncope type: unspecified Qualified Code(s): R55 - Syncope and collapse (3) OLEG (acute kidney injury) Current Visit: No Status: Acute Assessment and plan: Cr 2.04 on arrival. Suspect pre-renal. IV fluids, monitor repeat creatinine (4) Nausea & vomiting Current Visit: Yes Status: Acute Assessment and plan: Patient reports intractable nausea vomiting for the last 4-5 years. Takes IM Phenergan at home. Reports extensive GI workup with details unclear. ABD CT pending Qualifiers: Vomiting type: unspecified Vomiting Intractability: non-intractable Qualified Code(s): R11.2 - Nausea with vomiting, unspecified (5) CAD (coronary artery disease) of bypass graft Current Visit: No Status: Chronic Assessment and plan: per hx. with intermittent chest pain as noted above. Cont home ASA, [place], statin Qualifiers: [place] vs. transplanted heart: [place] heart Associated angina: angina presence unspecified Qualified Code(s): I25.810 - Atherosclerosis of coronary artery bypass graft(s) without angina pectoris (6) Cirrhosis Current Visit: No Status: Chronic Assessment and plan: per hx. LFTs stable. Qualifiers: Hepatic cirrhosis type: other cirrhosis Qualified Code(s): K74.69 - Other cirrhosis of liver (7) Chronic back pain Current Visit: Yes Status: Acute Assessment and plan: per hx. follows with pain management. Hold oxycodone recently and rapidly tapered per . She reports concern that patient may be in withdrawal. Stop all pain medication except for home regimen of oxycodone twice a day. Urine drug screen pending. Consult pain management if needed. Qualifiers: Back pain location: low back pain Back pain laterality: bilateral Sciatica presence: with sciatica Sciatica laterality: sciatica laterality unspecified Qualified Code(s): M54.40 - Lumbago with sciatica, unspecified side; G89.29 - Other chronic pain; G89.29 - Other chronic pain - Subjective Interval history: Seen and examined at bedside. Patient is new to me, information obtained from chart review and patient report. He appears somewhat sedated and altered, speech is not clear and he is not making sense that time. He tells me he has been vomiting off and on for for 5 years has had an apparent extensive GI workup. Says he was retching when he became lightheaded and passed out. He is not sure if he hit his head or lost consciousness. entered room shortly after exam started in she tells me that patient has indeed had an extensive GI workup with no cause of his nausea vomiting found. She also tells me that patient follows with pain management and he recently underwent a rapid weaning of his oxycodone as she suspects he is in withdrawal. - Constitutional Vitals: Temp Pulse Resp BP Pulse Ox 98.2 F 52 16 130/42 98 06/11/17 15:00 06/11/17 15:00 06/11/17 15:00 06/11/17 15:00 06/11/17 15:00 General appearance: Present: A&O X 3, pleasant, no acute distress, answers questions appropriately - Head Head exam: Present: atraumatic, normocephalic - Eye Eye exam: Present: PERRL, conjuntiva pink, sclera anicteric Pupils: Present: PERRL - Neck Neck exam general surgery: Present: supple, trachea midline. Absent: lymphadenopathy - Respiratory Respiratory exam: Present: CTAB. Absent: accessory muscle use, rales, rhonchi, wheezes - Cardiovascular Cardiovascular exam: Present: RRR, +S1, +S2. Absent: diastolic murmur, gallop, rubs, systolic murmur - GI/Abdominal GI/Abdominal exam: Present: normal bowel sounds, soft, no peritoneal signs. Absent: distended, tenderness - Extremities Exam Extremities exam: Present: warm, radial pulses palpable and symmetrical. Absent : calf tenderness, cyanotic, pedal edema - Neurological Exam Neurological exam: Present: CN II-XII intact, oriented X3, no focal deficits. Absent: pronater drift, facial droop, speech deficit - Skin Skin exam: Present: dry, intact Internal Medicine: Result - Labs CBC & Chem 7: 06/11/17 05:12 06/11/17 05:12 Labs: Short CBC 06/11/17 Range/Units 05:12 WBC 4.0 L D (4.3-11.1) K/mcL Hgb 10.9 L D (12.9-16.9) g/dL Hct 34.7 L (37.5-50.1) % Plt Count 103 L (140-400) K/mcL Neutrophils # 2.4 (1.6-8.9) K/mcL BMP 06/11/17 05:12 Sodium 137 Potassium 4.9 H Chloride 105 Carbon Dioxide 26 BUN 56 H Creatinine 1.81 H Glucose 184 H Calcium 8.9 Cardiac Enzymes 06/10/17 06/10/17 06/11/17 Range/Units 17:04 23:07 05:12 Troponin I 0.01 0.01 0.01 (0-0.03) ng/mL Liver Function 06/11/17 Range/Units 05:12 Total Bilirubin 0.4 (0.2-1.2) mg/dL AST 22 (5-34) Units/L ALT 15 (0-55) Units/L Alkaline Phosphatase 97 (38-126) Units/L Albumin 3.3 L (3.5-5.0) g/dL Urine 06/11/17 Range/Units 04:00 Urine Color Yellow (Yellow) Urine Clarity Clear (Clear) Urine pH 6.0 (5.0-8.0) pH Units Ur Specific [place] 1.028 H (1.010-1.025) Urine Protein Negative (Neg-Trace) mg/dL Urine Glucose (UA) Normal (Normal) mg/dL - ABG Interpretation ABG results: PT/INR, D-dimer PT 12.5 Seconds (9.4-12.1) H 06/11/17 05:12 - VTE Documentation of Mechanical Device: Graduated compression elastic hosiery Consult Discharge Plan - Plan Referrals: Niko Knight MD [Primary Care Provider] -
[2017-06-11] MEDS: rOPINIRole 1 MG TABLET PO SCH (21:27)
[2017-06-11] MEDS: traZODone 50 MG TABLET PO SCH (21:27)
[2017-06-11] MEDS: *HR* Heparin 5,000 UNIT/ML VIAL SQ SCH (21:27)
[2017-06-11 23:52] LABS: Amphetamine Screen,Urine Negative ng/mL (Cutoff=1000); Barbiturate Screen,Urine Negative ng/mL (Cutoff=200); Benzodiazepines Screen,Urine Negative ng/mL (Cutoff=200); Cannabinoid Screen,Urine Negative ng/mL (Cutoff = 50); Cocaine Screen,Urine Negative ng/mL (Cutoff= 300); Opiate Screen,Urine Positive ng/mL (Cutoff=300); Phencyclidine Screen,Urine Negative ng/mL (Cutoff=25)
[2017-06-12] MEDS: 0.9 % Sodium Chloride 1,000 ML IVC SCH ×4 (00:27→06:16)
[2017-06-12] MEDS: Gabapentin 300 MG CAPSULE PO SCH ×4 (00:28→22:16)
[2017-06-12] MEDS: rOPINIRole 1 MG TABLET PO SCH ×2 (00:28→22:16)
[2017-06-12] MEDS: Ranolazine 500 MG TAB.ER.12H PO SCH ×3 (00:28→22:16)
[2017-06-12] MEDS: traZODone 50 MG TABLET PO SCH ×2 (00:28→22:16)
[2017-06-12] MEDS: *HR* Promethazine 25 MG/ML VIAL IM PRN ×2 (00:49→17:13)
[2017-06-12] MEDS: *HR* OxyCODONE Immed Rel 5 MG TABLET PO PRN ×2 (00:50→18:58)
[2017-06-12] MEDS ORDERED: *HR* HYDROmorphone (PF) 1 MG/ML SYRINGE IVP ONE (05:58)
[2017-06-12] MEDS: *HR* Heparin 5,000 UNIT/ML VIAL SQ SCH ×3 (06:15→22:17)
[2017-06-12 06:22] LABS: Hematocrit 33.7 % (37.5-50.1); Hemoglobin 10.4 g/dL (12.9-16.9); Immature Platelets 4.5 % (1.1-6.1); Mean Corpuscular HGB Conc 30.9 g/dL (31.6-35.5); Mean Corpuscular Hemoglobin 29.4 pg (28.0-33.3); Mean Corpuscular Volume 95.2 fL (83.0-100.0); Mean Platelet Volume 10.9 fL (9.4-12.4); Red Blood Count 3.54 M/mcL (4.19-5.50); Red Cell Distribution Width 14.9 % (11.5-14.5)
[2017-06-12] MEDS ORDERED: Regadenoson 0.4 MG/5 ML SYRINGE IVP ONE (06:28)
[2017-06-12 06:37] LABS: Calcium 8.5 mg/dL (8.6-10.8)
[2017-06-12 06:43] LABS: Potassium 6.1 mEq/L (3.5-4.5)
[2017-06-12] MEDS: Insulin LISPRO 300 UNITS/3 ML VIAL SQ SCH ×3 (09:38→17:02)
[2017-06-12] MEDS: Aspirin 81 MG TAB.CHEW PO SCH (10:45)
--- NOTE | 2017-06-12 11:36 | Pre-Sedation Evaluation ---
Pre-sedation evaluation - Pre-sedation checklist Date of procedure: 06/12/17 Procedure: c Recent Vitals: Last Vital Signs Temp 97.3 F L 06/12/17 11:32 Pulse 97 06/12/17 11:32 Resp 16 06/12/17 11:32 BP 117/53 06/12/17 11:32 Pulse Ox 95 06/12/17 11:32 H&P (including ROS) documented in medical record: Yes Previous reaction to sedatives/anesthetics: No Dietary Status: NPO after Midnight ASA Classification *see protocol: CLASS II-Mild systemic disease Plan of Care: Pt appropriate candidate for procedure/moderate/conscious sedation , Risks/benefits of procedure/sedation discussed w/ patient/family
--- NOTE | 2017-06-12 13:12 | Cardiology Consult Note ---
Date of Encounter: 06/12/17 Time of Encounter: 12:00 Assessment and Plan (1) Chest pain Current Visit: Yes Status: Chronic Per cardiology: -Patient has chronic chest pain. -Patient states this episode occured with exertion and was worse than his baseline chest pain. -Admits to having his current chest pain now, denies this worsening chest pain currently. -Patient is intolerant to nitrates and beta joo. -On ranexa. -Known CAD -ECG with no acute changes. -Troponins negative x4. -Stress test with ischemia noted to inferoseptal territory. -PLan for LHC when able due renal function and platelet count. -Will continue to monitor. Qualifiers: Chest pain type: unspecified Qualified Code(s): R07.9 - Chest pain, unspecified (2) OLEG (acute kidney injury) Current Visit: No Status: Acute Per cardiology: -Creatinine on admission 2.05, today 1.51. -Baseline creatinine 1.2-1.4. -K 6.1 today, kayexelate ordered per primary service. -Nephrology consulted. -Management per primary and nephrology services. (3) CAD (coronary artery disease) Current Visit: No Status: Chronic Per cardiology: -Known CAD s/p CABG. -Previous LHC 2011 with proximal LAD 100% stenosis, luminal irregularities from mid to distal LAD, 20-30% proximal to mid OM1, luminal irregularities circumflex , proximal RCA 100% occluded, LAUGHLIN to LAD patent, SVG to PDA occluded, collateral from septal to PL, collaterals from circumflex to PL noted. -TTE 12/2016 with LVEF 55-60%, RV mildly dilated with systolic function normal, mild to moderately dilated left atrium, mild TR, mild PH. -Stress this admission with ischemia noted to inferoseptal territory. -ON asa, statin. Not on beta joo due to "blood pressure won't tolerate." -INtolerant to nitrates. -ADmitted with chest pain. -PLan for LHC when able. -Will make NPO after midnight. Qualifiers: Coronary Disease-Associated Artery/Lesion type: unspecified vessel or lesion type [place] vs. transplanted heart: [place] heart Associated angina: with unspecified angina Qualified Code(s): I25.119 - Atherosclerotic heart disease of [place] coronary artery with unspecified angina pectoris (4) Thrombocytopenia Current Visit: No Status: Chronic Per cardiology: -Platelets today 85. -Chronically thrombocytopenic. -Management per primary service. -Can consider hematology consult. Discussion w patient/family: The assessment and plan as outlined above was discussed with the patient who expressed understanding and agreement. All questions were answered. Thank you for involving us in the care of your patient. Please call with any questions. Discussed and reviewed with . History of Present Illness Consult date: 06/12/17 Requesting physician: Kelsea Low Consult reason: abnormal stress test Chief complaint: chest pain History of present illness: Mr. Grewal is a 62 year old male with a relevant past medical history of CAD s/ p CABG, pacemaker, hyperlipidemia, HTN, gastroparesis, cirrhosis, DMII, chronic pancreatitis, PVD, neuropathy, CVA, CHF, anemia, chronic chest pain. Patient has chronic chest pain and presented to [facility] with complaints of worsening chest pain. Patient states pain occured while walking from his living room to his bedroom. Patient denies increased shortness of breath or increased fatigue. Patient has baseline fatigue and baseline shortness of breath. Past Med Surg Social Fam HX - Past Medical History Attestation: Yes The following information was validated with the patient. Source: patient, old records reviewed Medical history: cirrhosis, CHF, coronary artery disease, CVA, diabetes, GERD, hypertension, myocardial infarction, thyroid disease, other Psychiatric history: no psych history - Past Surgical History Surgical History: appendectomy, cholecystectomy, coronary bypass (CABG), orthopedic, other, pacemaker/AICD - Social History Smoking Status: Never smoker Smokeless Tobacco Status: No Alcohol use: none Drug use: none - Family History Father Living Status: Hx Family Cardiac Disorders: Yes (Mi, bi pass) Brother Living Status: Hx Family Cardiac Disorders: Yes Mother Living Status: Hx Family Cardiac Disorders: No Medications and Allergies Levothyroxine [Synthroid] 50 mcg PO QAM 04/08/15 [History] Omeprazole [PriLOSEC] 40 mg PO BID 04/08/15 [History] Promethazine [Phenergan] 25 mg PO TID PRN 12/03/15 [History] Gabapentin [Neurontin] 900 mg PO TID 08/03/16 [History] Oxycodone HCl 10 mg PO BID 08/03/16 [History] Tizanidine HCl 4 mg PO QPM 08/03/16 [History] Aspirin 81 mg PO DAILY #30 tab.chew 08/06/16 [Rx] Atorvastatin [Lipitor] 40 mg PO HS 03/17/17 [History] Ropinirole HCl [Requip] 4 mg PO HS 05/01/17 [History] Trazodone HCl 100 - 200 mg PO HS 05/01/17 [History] DULoxetine [Cymbalta] 30 mg PO DAILY 06/10/17 [History] 3 Allergy/AdvReac Type Severity Reaction Status Date / Time morphine Allergy Intermediate Hives Verified 06/10/17 10:53 codeine Allergy Mild Itching Verified 06/10/17 10:53 Penicillins AdvReac Severe COMA Verified 06/10/17 10:53 nitroglycerin AdvReac Mild LOW BLOOD Verified 06/10/17 10:53 PRESSURE NITRATES Allergy Mild Itching Uncoded 06/10/17 10:53 NUBAIN Allergy Mild Itching Uncoded 06/10/17 10:53 All Systems Review: A 10-system review of systems was performed and is negative for pertinent findings except as documented above in the HPI. - Cardiovascular Cardiovascular: as per HPI Physical Examination Vital Signs, Last 4 Hours Temp Pulse Resp BP Pulse Ox 06/12/17 11:32 97.3 F L 97 16 117/53 95 06/12/17 10:32 100 06/12/17 10:22 97.7 F 50 16 128/59 100 General: Conversant, No Apparent Distress HEENT: Atraumatic, Normocephaly, Mucus Membranes Moist Neck: No JVD, Normal carotid pulses Cardiac: Reg Rate and Rhythm, Normal S1 and S2, No Murmur Lungs: Normal Breath Sounds, No Wheeze, Rales, Rhonchi Neuro: Alert and responsive, No focal deficits noted Abdomen: Soft, Non-Tender Skin: No rashes noted on visualized skin Musculoskeletal: No Chest Wall Tenderness Extremities: No Clubbing, No Cyanosis, No Edema, Normal Pulses Results 06/12/17 06:03 06/12/17 06:03 Lab Results Impressions Abdomen/Pelvis CT 06/11/17 18:40 IMPRESSION: 1. No acute abnormality within the abdomen and pelvis. 2. Chronic changes noted above. D/ / Patrick Mattson MD / Patrick Mattson MD Interpreting Provider: Patrick Mattson MD Active Medications Aspirin (Aspirin) 81 mg PO DAILY COUNT INCLUDES THE [facility] Stop: 12/11/17 09:01 Last Admin: 06/12/17 10:45 Dose: Not Given Atorvastatin Calcium (Lipitor) 40 mg PO HS COUNT INCLUDES THE [facility] Stop: 12/10/17 21:01 Last Admin: 06/12/17 00:27 Dose: Not Given Dextrose/Water (Dextrose 50% (Syg)) 25 ml IVP AD PRN PRN Reason: Hypoglycemia Stop: 12/10/17 11:13 Duloxetine HCl (Cymbalta) 30 mg PO DAILY COUNT INCLUDES THE [facility] Stop: 12/13/17 09:01 Gabapentin (Neurontin) 600 mg PO TID COUNT INCLUDES THE [facility] Stop: 12/10/17 15:01 Last Admin: 06/12/17 10:45 Dose: Not Given Glucagon (Glucagen) 1 mg IM ONCE PRN PRN Reason: Hypoglycemia Stop: 12/10/17 11:13 Glucose (Gluctose) 15 gm PO ONCE PRN PRN Reason: Hypoglycemia Stop: 12/10/17 11:13 Glucose (Gluctose) 30 gm PO ONCE PRN PRN Reason: Hypoglycemia Stop: 12/10/17 11:13 Heparin Sodium (Porcine) (Heparin) 5,000 unit SQ Q8HCO COUNT INCLUDES THE [facility] Stop: 12/11/17 22:01 Last Admin: 06/12/17 06:15 Dose: 5,000 unit Sodium Chloride (0.9 % Sodium Chloride) 1,000 mls @ 70 mls/hr IVC .[id number] COUNT INCLUDES THE [facility] Stop: 12/10/17 11:16 Last Admin: 06/12/17 06:16 Dose: 70 mls/hr Dextrose (Dextrose 5%) 1,000 mls @ 100 mls/hr IVC .Q10H PRN PRN Reason: HYPOGLYCEMIA Stop: 12/10/17 11:13 Sodium Chloride (0.9 % Sodium Chloride) 1,000 mls @ 75 mls/hr IVC .[id number] COUNT INCLUDES THE [facility] Stop: 12/11/17 16:16 Last Admin: 06/12/17 06:16 Dose: Not Given Insulin Human Lispro (Humalog) 0 units SQ TIDAC COUNT INCLUDES THE [facility] PRN Reason: Protocol Stop: 12/10/17 11:31 Last Admin: 06/12/17 12:51 Dose: Not Given Levothyroxine Sodium (Synthroid) 50 mcg PO QAM@30 COUNT INCLUDES THE [facility] Stop: 12/11/17 06:31 Last Admin: 06/12/17 06:24 Dose: Not Given Naloxone HCl (Narcan) 0.4 mg IVP Q2MIN PRN PRN Reason: Opioid Reversal Stop: 12/10/17 10:46 Omeprazole (Prilosec) 40 mg PO DAILY@729 COUNT INCLUDES THE [facility] Stop: 12/11/17 07:31 Last Admin: 06/12/17 10:44 Dose: Not Given Ondansetron HCl (Zofran) 4 mg IVP Q6HR PRN; Protocol PRN Reason: Nausea Stop: 12/10/17 14:58 Last Admin: 06/11/17 18:06 Dose: 4 mg Oxycodone HCl (Roxicodone) 10 mg PO Q6H PRN PRN Reason: Pain Last Admin: 06/12/17 00:50 Dose: 10 mg Promethazine HCl (Phenergan) 25 mg IM Q8HR PRN PRN Reason: Nausea And Vomiting Stop: 12/12/17 00:34 Last Admin: 06/12/17 00:49 Dose: 25 mg Ranolazine (Ranexa) 500 mg PO BID COUNT INCLUDES THE [facility] Stop: 12/10/17 21:01 Last Admin: 06/12/17 10:45 Dose: Not Given Ropinirole HCl (Requip) 4 mg PO [facility] Stop: 12/10/17 21:01 Last Admin: 06/12/17 00:28 Dose: Not Given Tizanidine HCl (Zanaflex) 2 mg PO BID PRN PRN Reason: Muscle Spasm Last Admin: 06/11/17 09:10 Dose: 2 mg Trazodone HCl (Trazodone) 50 mg PO [facility] Stop: 12/11/17 21:01 Last Admin: 06/12/17 00:28 Dose: Not Given Laboratory Tests 03/18/17 03/18/17 05/01/17 01:14 01:14 20:30 Hgb 9.5 L D 11.3 L Plt Count Potassium Creatinine 1.26 H Troponin I 05/01/17 06/10/17 06/10/17 20:30 09:56 09:56 Hgb Plt Count 147 Potassium Creatinine 1.35 H 2.04 H Troponin I 06/10/17 06/10/17 06/10/17 09:56 17:04 23:07 Hgb Plt Count Potassium Creatinine Troponin I 0.02 0.01 0.01 06/11/17 06/12/17 06/12/17 05:12 06:03 06:03 Hgb 10.4 L Plt Count 85 L Potassium 6.1 H D Creatinine 1.51 H Troponin I 0.01 - Imaging and Cardiology Chest Xray: report reviewed Stress Test: report reviewed Echo: report reviewed - EKG Interpretation EKG results cardiology: personally reviewed (ECG with SR, HR 79. Right bundle branch block noted. Intermittent pacing.), other (Telemetry reviewed with average HR previous 12 hours noted to be 50, paced rhythm. PVCs noted.) Consult Discharge Plan - Plan Referrals: Niko Knight MD [Primary Care Provider] -
--- NOTE | 2017-06-12 16:42 | Nephrology Consult Note ---
Date of Encounter: 06/12/17 Time of Encounter: 15:00 Assessment and Plan (1) OLEG (acute kidney injury) Status: Acute Elevated SCr likely pre-renal Continue IVF for now Urine studies ordered US of kidney planned (2) Hyperkalemia Status: Acute Will dose with additional kayexalate till BM Renal diet advised History of Present Illness - Reason for Consult Consult date: 06/12/17 Acute Kidney Injury, Chronic Kidney Disease, hyperkalemia Requesting physician: Kelsea Low - History of Present Illness 62 y o male with PMH of DM, HTN, CAD with CHF and cirrhosis admitted with chest pain. Renal consulted for worsening potassium at 6.1 and elevated serum creatinine at 1.51, GFR 47. SCr actually worse on initial presenttation at 2.04 , GFR 33 and improving. Baseline GFR appears to be around 50s u to 60s. Pt seen and examined complaining of back pain and demanding pain meds. Did not want to talk much or give much history. Past Med Surg Social Fam HX - Past Medical History Medical history: cirrhosis, CHF, coronary artery disease, CVA, diabetes, GERD, hypertension, myocardial infarction, thyroid disease, other Psychiatric history: no psych history - Past Surgical History Surgical History: appendectomy, cholecystectomy, coronary bypass (CABG), orthopedic, other, pacemaker/AICD - Social History Smoking Status: Never smoker Smokeless Tobacco Status: No Alcohol use: none Drug use: none - Family History Father Living Status: Hx Family Cardiac Disorders: Yes (Mi, bi pass) Brother Living Status: Hx Family Cardiac Disorders: Yes Mother Living Status: Hx Family Cardiac Disorders: No Medications and Allergies Levothyroxine [Synthroid] 50 mcg PO QAM 04/08/15 [History] Omeprazole [PriLOSEC] 40 mg PO BID 04/08/15 [History] Promethazine [Phenergan] 25 mg PO TID PRN 12/03/15 [History] Gabapentin [Neurontin] 900 mg PO TID 08/03/16 [History] Oxycodone HCl 10 mg PO BID 08/03/16 [History] Tizanidine HCl 4 mg PO QPM 08/03/16 [History] Aspirin 81 mg PO DAILY #30 tab.chew 08/06/16 [Rx] Atorvastatin [Lipitor] 40 mg PO HS 03/17/17 [History] Ropinirole HCl [Requip] 4 mg PO HS 05/01/17 [History] Trazodone HCl 100 - 200 mg PO HS 05/01/17 [History] DULoxetine [Cymbalta] 30 mg PO DAILY 06/10/17 [History] 3 Allergy/AdvReac Type Severity Reaction Status Date / Time morphine Allergy Intermediate Hives Verified 06/10/17 10:53 codeine Allergy Mild Itching Verified 06/10/17 10:53 Penicillins AdvReac Severe COMA Verified 06/10/17 10:53 nitroglycerin AdvReac Mild LOW BLOOD Verified 06/10/17 10:53 PRESSURE NITRATES Allergy Mild Itching Uncoded 06/10/17 10:53 NUBAIN Allergy Mild Itching Uncoded 06/10/17 10:53 Review of Systems ROS unobtainable: due to endotracheal tube (10 systems reviewed) Exam - Vital Signs Vital signs: Initial Vital Signs Temp Pulse Resp BP Pulse Ox 98.3 F 90 14 158/99 98 06/10/17 09:44 06/10/17 09:44 06/10/17 09:44 06/10/17 09:44 06/10/17 09:44 Vital Signs - Last 8 Hours Temp Pulse Resp BP Pulse Ox 06/12/17 15:17 98.1 F 60 18 132/72 94 06/12/17 11:32 97.3 F L 97 16 117/53 95 06/12/17 10:32 100 06/12/17 10:22 97.7 F 50 16 128/59 100 Intake and Output 06/12/17 06/12/17 06/12/17 07:59 15:59 23:59 Intake Total 1999 Output Total 600 / 600 Balance 1400 / 1400 Intake: IV Fluids 1999 0.9 % Sodium Chloride 1,000 ML 1999 @ 70 mls/hr IVC .[id number] [facility] Rx #:[id number] Output: Urine 600 / 600 Other: Weight 98.974 kg Blood Glucose* 112 Patient Weight 06/12/17 23:59 Weight 98.974 kg - General Appearance General appearance: well-developed, well-nourished, moderate distress (due to pain) EENT: ATNC, mucous membranes moist Neck: no JVD, supple Respiratory: clear Cardiology: no edema, normal S1, normal S2 Gastrointestinal: no tenderness, no guarding Integumentary: warm and dry Neurologic: no focal deficit Musculoskeletal: no deformities Psychiatric: mood/affect appropriate Results - Lab Results 06/16/17 04:09 06/16/17 04:09 Most recent lab results Calcium 8.5 mg/dL (8.6-10.8) L 06/12/17 06:03 Phosphorus 3.9 mg/dL (2.3-4.7) 06/11/17 05:12 Magnesium 2.2 mg/dL (1.6-2.6) 06/11/17 05:12 Consult Discharge Plan - Plan Instructions: Chest Pain (DC), Left Heart Catheterization (DC), Acute Nausea and Vomiting (DC), Acute Nausea and Vomiting (GEN), Thrombocytopenia (DC) Additional Instructions: RISK FACTORS: STOP SMOKING: If you smoke, STOP. Smoking or tobacco use significantly increases your risk of heart disease because nicotine causes the arteries to narrow or constrict. It also causes fats to stick to the artery. Your chances of having a heart attack are greatly increased if you continue to smoke. For more information, call the education line for smoking cessation 6-618-[id number] EAT A LOW FAT/CHOLESTEROL/SODIUM DIET: This diet may help reduce your chances of having a heart attack. LIFTING: Avoid lifting anything more than 10 pounds for 5-7 days Prior to straining, laughing, sneezing and/or coughing, apply manual pressure directly over insertion site. ACTIVITY: You may walk or climb stairs as tolerated You can resume sexual activity as tolerated In general, you are encouraged to engage in a minimum of 30 minutes or more of moderate intensity physical activity, such as brisk walking, daily or at least 3 -4 times weekly BATHING Do not submerge the site into water (bath tub, hot tub, swimming pool) for 1 week. This can be a source for infection into the blood stream. You may shower after 24 hours SITE CARE: After 24 hours, you may remove the dressing and leave the site open to air. Keep the site clean and dry. Clean gently and pat dry. You can expect bruising and tenderness that gradually resolve within a week or two. Return to work as instructed per your physician Resume driving as instructed per physician Keep all scheduled follow up appointments Resume medications as instructed IMPORTANT: If prescribed a Platelet Aggregation Inhibitor such as, Plavix, Brilinta or Effient: Duration of therapy is minimum one year These medications are often used in combination with Aspirin in prevention of future heart attacks Never discontinue unless consult with your Cosmetic Manager STROKE (CVA) Risk factors for a stroke are: Age, cigarette smoking, diabetes, excessive alcohol consumption, family history, high blood pressure, overweight, physical inactivity, prior stroke, heart attack, diagnosis of carotid artery stenosis or other artery disease. Warning signs: Sudden numbness or weakness of the face, arm or leg; especially on one side of the body, sudden confusion, trouble speaking or understanding, sudden trouble seeing in one or both eyes, sudden trouble walking, dizziness, loss of balance or coordination, sudden severe headache with no cause. Call 911 or go to the Emergency Room. CONGESTIVE HEART FAILURE: If you have been diagnosed with Congestive Heart Failure (CHF) and your symptoms return, make an appointment with your physician Weigh yourself daily. Notify your physician if you have a weight gain of two or more pounds in one day or five or more pounds in one week. If you experience any difficulty breathing, please call 911 BLEEDING: Although the risk of bleeding is minimal, it can happen. If you have any bleeding from the site, apply firm pressure above the puncture site for 10-15 minutes. If the bleeding does not stop, continue manual pressure and call 911 Contact your physician if: You develop a fever greater than 101 degrees Fahrenheit Your site becomes reddened or has any drainage You have an increase in pain or burning at the site or if a large knot forms at the site. If you experience chest pain, shortness of breath, dizziness, or extreme tiredness, stop the activity and rest. Please notify your physicians office if you experience any of these symptoms and they are not relieved by rest please call 911! Referrals: [facility] [Provider Group] (The office will call you with a follow up appt.) Niko Knight MD [Primary Care Provider] - 06/26/17 3:45 pm
--- NOTE | 2017-06-12 18:20 | Internal Med Progress Note ---
Date of Encounter: 06/12/17 Time of Encounter: 15:30 - Assessment and plan (1) Chest pain Current Visit: No Status: Acute Assessment and plan: Patient reports chest pain during assessment. It is chronic and worse than baseline. Nonanginal chest pain. EKG: Multiple pauses noted. This is new as compared to the previous EKG. Echocardiogram: 12/2016: Left ventricular ejection fraction: 60%, mildly dilated right ventricle, moderate dilation of the left atrium, atypical septal motion consistent with paced rhythm. Nuclear stress test: 11/2015 negative for ischemia/infarct. LHC 2011: Proximal LAD 100%, LAUGHLIN to LAD patent, SVG to made PDA occluded, good- quality collaterals. Serial troponin negative. Chest x-ray is negative. Arrival was sinus rhythm with sinus arrhythmia and a right bundle branch block with a rate of 79, QRS 149 and QTC 439. Stress test 06/12/17 EF 55% with a small size, mild intensity, reversible inferoseptal perfusion defect, possibly due to ischemia. Cardiology was consulted. Patient is intolerant to nitrates and beta blockers. He is on Ranexa has known coronary artery disease. Cardiology will plan for [facility]. Patient is able due to renal function platelet count. Continue telemetry Treat chest pain with aspirin and nitroglycerin Qualifiers: Chest pain type: unspecified Qualified Code(s): R07.9 - Chest pain, unspecified (2) Cirrhosis Current Visit: No Status: Chronic Assessment and plan: Per patient history. LFTs stable. Qualifiers: Hepatic cirrhosis type: other cirrhosis Qualified Code(s): K74.69 - Other cirrhosis of liver (3) CAD (coronary artery disease) Current Visit: Yes Status: Chronic Assessment and plan: Patient presents with recurrent chest pain. Patient has known coronary artery disease status post CABG. Patient had LHC 2011 that showed multivessel disease. Per Cardiology note: TTE 12/2016 with LVEF 55-60%, RV mildly dilated with systolic function normal, mild to moderately dilated left atrium, mild TR, mild PH. Stress this admission with ischemia noted to inferoseptal territory. ON asa, statin. Not on beta joo due to "blood pressure won't tolerate." Pt taking Ranexa. Intolerant to nitrates. Qualifiers: Coronary Disease-Associated Artery/Lesion type: unspecified vessel or lesion type [place] vs. transplanted heart: [place] heart Associated angina: with unspecified angina Qualified Code(s): I25.119 - Atherosclerotic heart disease of [place] coronary artery with unspecified angina pectoris (4) Nausea & vomiting Current Visit: Yes Status: Acute Assessment and plan: Patient reports intractable nausea vomiting for the last 4-5 years. Takes IM Phenergan at home. Unknown etitology. CT abd/pelvis negative. Abd distended, normal for pt, and non-tender to palpation Abdomen/Pelvis CT 06/11/17 18:40 IMPRESSION: 1. No acute abnormality within the abdomen and pelvis. 2. Chronic changes noted above. D/ / Patrick Mattson MD / Patrick Mattson MD Interpreting Provider: Patrick Mattson MD Qualifiers: Vomiting type: unspecified Vomiting Intractability: non-intractable Qualified Code(s): R11.2 - Nausea with vomiting, unspecified (5) Pancytopenia Current Visit: Yes Status: Acute Assessment and plan: Chronic thrombocytopenia, leukopenia, and anemia. MOst likely due to chronic cirrhosis and CKD. Continue to monitor. (6) Syncope Current Visit: Yes Status: Acute Assessment and plan: Reports episode of near syncope on day of presentation. Occurred the setting of retching, possibly secondary to vasovagal stimulation. Concern for possible sedation with excessive pain medication. Head CT negative. Chest X-Ray 06/10/17 09:56 IMPRESSION: No acute cardiopulmonary process. D/ / Silviano Garcia MD / Silviano Garcia MD Interpreting Provider: Silviano Garcia MD Head CT 06/10/17 13:00 IMPRESSION: No acute intracranial abnormality. D/ / Guera Alvarez MD / Guera Alvarez MD Interpreting Provider: Guera Alvarez MD Qualifiers: Syncope type: unspecified Qualified Code(s): R55 - Syncope and collapse (7) Chronic back pain Current Visit: Yes Status: Acute Assessment and plan: Per hx. follows with pain management. Hold oxycodone recently and rapidly tapered per . She reports concern that patient may be in withdrawal. Stop all pain medication except for home regimen of oxycodone twice a day. Urine drug screen pending. Consult pain management if needed. Pt has been requesting IV pain medications, we discussed that I would not be giving any more pain medication for chronic pain. Qualifiers: Back pain location: low back pain Back pain laterality: bilateral Sciatica presence: with sciatica Sciatica laterality: sciatica laterality unspecified Qualified Code(s): M54.40 - Lumbago with sciatica, unspecified side; G89.29 - Other chronic pain; G89.29 - Other chronic pain (8) CKD (chronic kidney disease) stage 3, GFR 30-59 ml/min Current Visit: Yes Status: Acute Assessment and plan: Sr CR 1.51, GFR 47. Appears to be at pt's baseline. Pt with hyperkalemia, given Kayexelate and will continue to monitor. Nephrology following appreciate their recommendations consultation. - Time Spent With Patient less than 15 minutes - Subjective Interval history: Patient was seated assessed at bedside at 1530. He is exceptionally hard of hearing. He reports back pain, hip pain denies chest pain. Is requesting IV Phenergan as well has requesting pain medication above his normal home medication. Explained to him he will not be receiving anything above his normal home medication for his chronic pain. He was agreeable. - Constitutional Vitals: Temp Pulse Resp BP Pulse Ox 98.1 F 60 18 132/72 94 06/12/17 15:17 06/12/17 15:17 06/12/17 15:17 06/12/17 15:17 06/12/17 15:17 General appearance: Present: cooperative, A&O X 3, pleasant, no acute distress, answers questions appropriately - Head Head exam: Present: atraumatic, normal inspection, normocephalic - Eye Eye exam: Present: normal appearance, conjuntiva pink, sclera anicteric - Neck Neck exam general surgery: Present: supple, trachea midline. Absent: lymphadenopathy, tenderness - Respiratory Respiratory exam: Present: CTAB. Absent: accessory muscle use, chest wall tenderness, decreased breath sounds, rales, rhonchi, wheezes - Cardiovascular Cardiovascular exam: Present: RRR, +S1, +S2. Absent: diastolic murmur, gallop, rubs, systolic murmur - GI/Abdominal GI/Abdominal exam: Present: normal bowel sounds, soft, no peritoneal signs. Absent: hepatomegaly, tenderness - Extremities Exam Extremities exam: Present: normal capillary refill, warm, radial pulses palpable and symmetrical. Absent: calf tenderness, cyanotic, pedal edema, tenderness - Neurological Exam Neurological exam: Present: alert, oriented X3, no focal deficits, strengths equal and symetr throughout. Absent: facial droop, speech deficit - Skin Skin exam: Present: dry, intact, normal color, warm. Absent: rash Internal Medicine: Result - Labs CBC & Chem 7: 06/12/17 06:03 06/12/17 06:03 Labs: Short CBC 06/12/17 Range/Units 06:03 WBC 3.7 L (4.3-11.1) K/mcL Hgb 10.4 L (12.9-16.9) g/dL Hct 33.7 L (37.5-50.1) % Plt Count 85 L (140-400) K/mcL BMP 06/12/17 06:03 Sodium 136 Potassium 6.1 H D Chloride 109 Carbon Dioxide 24 BUN 40 H D Creatinine 1.51 H Glucose 156 H Calcium 8.5 L - ABG Interpretation ABG results: PT/INR, D-dimer PT 12.5 Seconds (9.4-12.1) H 06/11/17 05:12 - Impressions Impressions Abdomen/Pelvis CT 06/11/17 18:40 IMPRESSION: 1. No acute abnormality within the abdomen and pelvis. 2. Chronic changes noted above. D/ / Patrick Mattson MD / Patrick Mattson MD Interpreting Provider: Patrick Mattson MD - VTE Documentation of Mechanical Device: Graduated compression elastic hosiery Consult Discharge Plan - Plan Referrals: Niko Knight MD [Primary Care Provider] -
[2017-06-13] MEDS: *HR* OxyCODONE Immed Rel 5 MG TABLET PO PRN ×3 (01:04→17:45)
[2017-06-13] MEDS: 0.9 % Sodium Chloride 1,000 ML IVC SCH ×4 (01:07→17:35)
[2017-06-13] MEDS: *HR* Heparin 5,000 UNIT/ML VIAL SQ SCH ×2 (06:34→14:32)
[2017-06-13 07:11] LABS: Basophils % 0.3 %; Eosinophils % 1.9 %; Immature Granulocytes % 0.3 % (0-4); Mean Corpuscular Hemoglobin 29.9 pg (28.0-33.3); Red Cell Distribution Width 14.8 % (11.5-14.5)
[2017-06-13 07:12] LABS: Eosinophils # 0.1 K/mcL (0.0-0.6); Hematocrit 33.2 % (37.5-50.1); Hemoglobin 10.3 g/dL (12.9-16.9); Immature Platelets 5.3 % (1.1-6.1); Lymphocytes # 1.1 K/mcL (0.6-4.6); Lymphocytes % 33.5 %; Mean Corpuscular Volume 96.5 fL (83.0-100.0); Mean Platelet Volume 11.2 fL (9.4-12.4); Monocytes # 0.3 K/mcL (0.0-1.3); Monocytes % 8.8 %; Neutrophils # 1.8 K/mcL (1.6-8.9); Red Blood Count 3.44 M/mcL (4.19-5.50); Segmented Neutrophils % 55.2 %
[2017-06-13 07:23] LABS: BUN/Creatinine Ratio 21 (6-26); Blood Urea Nitrogen 25 mg/dL (8-26); Calcium 8.6 mg/dL (8.6-10.8); Carbon Dioxide 28 mEq/L (19-29); Chloride 104 mEq/L (98-109); Glucose 131 mg/dL (70-99); Osmolality,Calculated 292 (280-300); Potassium 4.8 mEq/L (3.5-4.5); Sodium 138 mEq/L (136-145); eGFR For African Americans > 60 (> 60); eGFR For Non-African Americans > 60 (> 60)
[2017-06-13 07:36] LABS: Platelet Count 78 K/mcL (140-400)
[2017-06-13] MEDS: Ranolazine 500 MG TAB.ER.12H PO SCH ×3 (10:03→22:24)
[2017-06-13] MEDS: Aspirin 81 MG TAB.CHEW PO SCH ×2 (10:03→10:44)
[2017-06-13] MEDS: Insulin LISPRO 300 UNITS/3 ML VIAL SQ SCH ×3 (10:03→17:36)
[2017-06-13] MEDS: Gabapentin 300 MG CAPSULE PO SCH ×4 (10:03→22:23)
[2017-06-13] MEDS: Ondansetron 4 MG/2 ML VIAL IVP PRN ×3 (10:50→22:24)
--- NOTE | 2017-06-13 14:05 | Cardiology Progress Note ---
Date of Encounter: 06/13/17 Time of Encounter: 13:30 Assessment and Plan (1) Chest pain Current Visit: Yes Status: Chronic Per cardiology: -Patient has chronic chest pain. -Patient states this episode occured with exertion and was worse than his baseline chest pain. -Admits to having his current chest pain now, denies this worsening chest pain currently. -Patient is intolerant to nitrates and beta joo. -On ranexa. -Known CAD -ECG with no acute changes. -Troponins negative x4. -Stress test with ischemia noted to inferoseptal territory. -PLan for LHC when able due renal function and platelet count. PLatelets today 78, unable to complete LHC today. -Will continue to monitor. Qualifiers: Chest pain type: unspecified Qualified Code(s): R07.9 - Chest pain, unspecified (2) OLEG (acute kidney injury) Current Visit: No Status: Acute Per cardiology: -Creatinine on admission 2.05, today improved. -Baseline creatinine 1.2-1.4. -Nephrology consulted. -Management per primary and nephrology services. (3) CAD (coronary artery disease) Current Visit: Yes Status: Chronic Per cardiology: -Known CAD s/p CABG. -Previous LHC 2011 with proximal LAD 100% stenosis, luminal irregularities from mid to distal LAD, 20-30% proximal to mid OM1, luminal irregularities circumflex , proximal RCA 100% occluded, LAUGHLIN to LAD patent, SVG to PDA occluded, collateral from septal to PL, collaterals from circumflex to PL noted. -TTE 12/2016 with LVEF 55-60%, RV mildly dilated with systolic function normal, mild to moderately dilated left atrium, mild TR, mild PH. -Stress this admission with ischemia noted to inferoseptal territory. -ON asa, statin. Not on beta joo due to "blood pressure won't tolerate." -INtolerant to nitrates. -ADmitted with chest pain. -PLan for LHC when able. -Will make NPO after midnight. Qualifiers: Coronary Disease-Associated Artery/Lesion type: unspecified vessel or lesion type [place] vs. transplanted heart: [place] heart Associated angina: with unspecified angina Qualified Code(s): I25.119 - Atherosclerotic heart disease of [place] coronary artery with unspecified angina pectoris (4) Thrombocytopenia Current Visit: No Status: Chronic Per cardiology: -Platelets today 78, decreased from 140s on admission. -Chronically thrombocytopenic. -Management per primary service. -Can consider hematology consult. Discussion w patient/family: The assessment and plan as outlined above was discussed with the patient who expressed understanding and agreement. All questions were answered. Thank you for involving us in the care of your patient. Please call with any questions. Discussed and reviewed with . Subjective Principal diagnosis: chest pain Interval history: Patient reports he is having his normal chronic chest pain today. Objective Vital Signs, Last 4 Hours Temp Pulse Resp BP Pulse Ox 06/13/17 11:23 98.2 F 52 14 139/69 98 General: Conversant, No Apparent Distress HEENT: Atraumatic, Normocephaly, Mucus Membranes Moist Neck: No JVD, Normal carotid pulses Cardiac: Reg Rate and Rhythm, Normal S1 and S2, No Murmur Lungs: Normal Breath Sounds, No Wheeze, Rales, Rhonchi Neuro: Alert and responsive, No focal deficits noted Abdomen: Soft, Non-Tender Skin: No rashes noted on visualized skin Musculoskeletal: No Chest Wall Tenderness Extremities: No Clubbing, No Cyanosis, No Edema, Normal Pulses Results 06/13/17 06:34 06/13/17 06:34 Lab Results Impressions Retroperitoneum Ultrasound 06/12/17 20:00 IMPRESSION: The right kidney is small and hyperechoic consistent with atrophy. Left kidney is normal. No evidence of hydronephrosis. D/ / Esteban Garvey MD / Esteban Garvey MD Interpreting Provider: Esteban Garvey MD Active Medications Aspirin (Aspirin) 81 mg PO DAILY [facility] Stop: 12/11/17 09:01 Last Admin: 06/13/17 10:44 Dose: 81 mg Atorvastatin Calcium (Lipitor) 40 mg PO HS [facility] Stop: 12/10/17 21:01 Last Admin: 06/12/17 22:17 Dose: 40 mg Dextrose/Water (Dextrose 50% (Syg)) 25 ml IVP AD PRN PRN Reason: Hypoglycemia Stop: 12/10/17 11:13 Duloxetine HCl (Cymbalta) 30 mg PO DAILY [facility] Stop: 12/13/17 09:01 Last Admin: 06/13/17 10:44 Dose: 30 mg Gabapentin (Neurontin) 600 mg PO TID [facility] Stop: 12/10/17 15:01 Last Admin: 06/13/17 10:44 Dose: 600 mg Glucagon (Glucagen) 1 mg IM ONCE PRN PRN Reason: Hypoglycemia Stop: 12/10/17 11:13 Glucose (Gluctose) 15 gm PO ONCE PRN PRN Reason: Hypoglycemia Stop: 12/10/17 11:13 Glucose (Gluctose) 30 gm PO ONCE PRN PRN Reason: Hypoglycemia Stop: 12/10/17 11:13 Heparin Sodium (Porcine) (Heparin) 5,000 unit SQ Q8HCO [facility] Stop: 12/11/17 22:01 Last Admin: 06/13/17 06:34 Dose: 5,000 unit Dextrose (Dextrose 5%) 1,000 mls @ 100 mls/hr IVC .Q10H PRN PRN Reason: HYPOGLYCEMIA Stop: 12/10/17 11:13 Sodium Chloride (0.9 % Sodium Chloride) 1,000 mls @ 75 mls/hr IVC .[id number] [facility] Stop: 12/11/17 16:16 Last Admin: 06/13/17 06:34 Dose: 75 mls/hr Insulin Human Lispro (Humalog) 0 units SQ TIDAC [facility] PRN Reason: Protocol Stop: 12/10/17 11:31 Last Admin: 06/13/17 12:19 Dose: Not Given Levothyroxine Sodium (Synthroid) 50 mcg PO QAM@0630 [facility] Stop: 12/11/17 06:31 Last Admin: 06/13/17 06:31 Dose: Not Given Naloxone HCl (Narcan) 0.4 mg IVP Q2MIN PRN PRN Reason: Opioid Reversal Stop: 12/10/17 10:46 Omeprazole (Prilosec) 40 mg PO DAILY@0730 [facility] Stop: 12/11/17 07:31 Last Admin: 06/13/17 10:44 Dose: 40 mg Ondansetron HCl (Zofran) 4 mg IVP Q6HR PRN; Protocol PRN Reason: Nausea Stop: 12/10/17 14:58 Last Admin: 06/13/17 10:50 Dose: 4 mg Oxycodone HCl (Roxicodone) 10 mg PO Q6H PRN PRN Reason: Pain Last Admin: 06/13/17 10:45 Dose: 10 mg Promethazine HCl (Phenergan) 25 mg IM Q8HR PRN PRN Reason: Nausea And Vomiting Stop: 12/12/17 00:34 Last Admin: 06/12/17 17:13 Dose: 25 mg Ranolazine (Ranexa) 500 mg PO BID [facility] Stop: 12/10/17 21:01 Last Admin: 06/13/17 10:44 Dose: 500 mg Ropinirole HCl (Requip) 4 mg PO HS [facility] Stop: 12/10/17 21:01 Last Admin: 06/12/17 22:16 Dose: 4 mg Tizanidine HCl (Zanaflex) 2 mg PO BID PRN PRN Reason: Muscle Spasm Last Admin: 06/11/17 09:10 Dose: 2 mg Trazodone HCl (Trazodone) 50 mg PO HS [facility] Stop: 12/11/17 21:01 Last Admin: 06/12/17 22:16 Dose: 50 mg Laboratory Tests 06/10/17 06/10/17 06/13/17 09:56 09:56 06:34 WBC Hgb Plt Count 147 Creatinine 2.04 H 1.21 06/13/17 06:34 WBC 3.2 L Hgb 10.3 L Plt Count 78 L Creatinine - Imaging and Cardiology Chest Xray: report reviewed Stress Test: report reviewed Echo: report reviewed Cardiac cath: report reviewed - EKG Interpretation EKG results cardiology: other (Telemetry reviewed with average HR previous 12 hours noted to be 64, paced rhythm.) - VTE Documentation of Mechanical Device: Graduated compression elastic hosiery Consult Discharge Plan - Plan Referrals: Niko Knight MD [Primary Care Provider] -
[2017-06-13] MEDS: *HR* Promethazine 25 MG/ML VIAL IM PRN (14:32)
[2017-06-13 15:34] LABS: Creatinine,Urine 30 mg/dL
[2017-06-13 15:43] LABS: Chloride,Urine 141 mEq/L; Microalbum/Creatinine Ratio,Ur < 17 (0-30); Microalbumin,Urine < 5 mg/L; Protein/Creatinine Ratio,Urine < 0.23 mg/mg (0-0.20)
--- NOTE | 2017-06-13 15:54 | Internal Med Progress Note ---
Date of Encounter: 06/13/17 Time of Encounter: 14:10 - Assessment and plan (1) Chest pain Current Visit: No Status: Acute Assessment and plan: Patient reports chest pain during assessment. It is chronic and worse than baseline. STAT EKG ordered as well as STAT troponin for evalation. Nonanginal chest pain. EKG: Multiple pauses noted. This is new as compared to the previous EKG. Echocardiogram: 12/2016: Left ventricular ejection fraction: 60%, mildly dilated right ventricle, moderate dilation of the left atrium, atypical septal motion consistent with paced rhythm. Nuclear stress test: 11/2015 negative for ischemia/infarct. LHC 2011: Proximal LAD 100%, LAUGHLIN to LAD patent, SVG to made PDA occluded, good- quality collaterals. Serial troponin negative. Chest x-ray is negative. Arrival was sinus rhythm with sinus arrhythmia and a right bundle branch block with a rate of 79, QRS 149 and QTC 439. Stress test 06/12/17 EF 55% with a small size, mild intensity, reversible inferoseptal perfusion defect, possibly due to ischemia. Cardiology was consulted. Patient is intolerant to nitrates and beta blockers. He is on Ranexa has known coronary artery disease. Cardiology will plan for LHC when Plt count is higher and renal function is improved. I will transfuse pt with 2 units of platelets and have consulted oncology to assess for liklihood that pt could have DAPT after LHC if necessary. Oncology will see pt tomorrow. Continue telemetry Treat chest pain with aspirin and nitroglycerin Qualifiers: Chest pain type: unspecified Qualified Code(s): R07.9 - Chest pain, unspecified (2) Cirrhosis Current Visit: No Status: Chronic Assessment and plan: Per patient history. LFTs stable. Most likely cause of pts pancytopenia. Continue to monitor. Qualifiers: Hepatic cirrhosis type: other cirrhosis Qualified Code(s): K74.69 - Other cirrhosis of liver (3) CAD (coronary artery disease) Current Visit: Yes Status: Chronic Assessment and plan: Patient presents with recurrent chest pain. Patient has known coronary artery disease status post CABG. Patient had LHC 2011 that showed multivessel disease. Per Cardiology note: TTE 12/2016 with LVEF 55-60%, RV mildly dilated with systolic function normal, mild to moderately dilated left atrium, mild TR, mild PH. Stress this admission with ischemia noted to inferoseptal territory. ON asa, statin. Not on beta joo due to "blood pressure won't tolerate." Pt taking Ranexa. Intolerant to nitrates. Will have LHC if renal function and platelets stabilize. Qualifiers: Coronary Disease-Associated Artery/Lesion type: unspecified vessel or lesion type [place] vs. transplanted heart: [place] heart Associated angina: with unspecified angina Qualified Code(s): I25.119 - Atherosclerotic heart disease of [place] coronary artery with unspecified angina pectoris (4) Nausea & vomiting Current Visit: Yes Status: Acute Assessment and plan: Patient reports intractable nausea vomiting for the last 4-5 years. Takes IM Phenergan at home. Unknown etitology. CT abd/pelvis negative. Abd distended, normal for pt, and non-tender to palpation Continue with phenergan IM Abdomen/Pelvis CT 06/11/17 18:40 IMPRESSION: 1. No acute abnormality within the abdomen and pelvis. 2. Chronic changes noted above. D/ / Patrick Mattson MD / Patrick Mattson MD Interpreting Provider: Patrick Mattson MD Qualifiers: Vomiting type: unspecified Vomiting Intractability: non-intractable Qualified Code(s): R11.2 - Nausea with vomiting, unspecified (5) Pancytopenia Current Visit: Yes Status: Acute Assessment and plan: Chronic thrombocytopenia, leukopenia, and anemia. MOst likely due to chronic cirrhosis and CKD. Continue to monitor. Cardiology is requesting oncology consultation for pancytopenia ,specifically thrombocytopenia, and safety of LHC and DAPT after stress if needed. (6) Syncope Current Visit: Yes Status: Resolved Assessment and plan: Reports episode of near syncope on day of presentation. Occurred the setting of retching, possibly secondary to vasovagal stimulation. Concern for possible sedation with excessive pain medication. Head CT negative. Chest X-Ray 06/10/17 09:56 IMPRESSION: No acute cardiopulmonary process. D/ / Silviano Garcia MD / Silviano Garcia MD Interpreting Provider: Silviano Garcia MD Head CT 06/10/17 13:00 IMPRESSION: No acute intracranial abnormality. D/ / Guera Alvarez MD / Guera Alvarez MD Interpreting Provider: Guera Alvarez MD Qualifiers: Syncope type: unspecified Qualified Code(s): R55 - Syncope and collapse (7) Chronic back pain Current Visit: Yes Status: Acute Assessment and plan: Per hx. follows with pain management. Hold oxycodone recently and rapidly tapered per . She reports concern that patient may be in withdrawal. Stop all pain medication except for home regimen of oxycodone twice a day. Urine drug screen pending. Consult pain management if needed. Pt has been requesting IV pain medications, we discussed that I would not be giving any more pain medication for chronic pain. Qualifiers: Back pain location: low back pain Back pain laterality: bilateral Sciatica presence: with sciatica Sciatica laterality: sciatica laterality unspecified Qualified Code(s): M54.40 - Lumbago with sciatica, unspecified side; G89.29 - Other chronic pain; G89.29 - Other chronic pain (8) CKD (chronic kidney disease) stage 3, GFR 30-59 ml/min Current Visit: Yes Status: Acute Assessment and plan: Sr CR 1.51, GFR 47. Appears to be at pt's baseline. Pt with hyperkalemia, given Kayexelate and will continue to monitor. Nephrology following appreciate their recommendations consultation. - Time Spent With Patient less than 15 minutes - Subjective Interval history: Patient was seated assessed at bedside at 1410. He is exceptionally hard of hearing. He reports chest pain as well as wretching, onset approx 15 minutes prior to my assessment. Pt again requesting pain medication for his chronic pain. He denies change in his baseline pain. I again explained to him that I will not be increasing his pain medication home doses. - Constitutional Vitals: Temp Pulse Resp BP Pulse Ox 98.2 F 52 14 139/69 98 06/13/17 11:23 06/13/17 11:23 06/13/17 11:23 06/13/17 11:23 06/13/17 11:23 General appearance: Present: cooperative, A&O X 3, pleasant, no acute distress, answers questions appropriately - Head Head exam: Present: normal inspection - Eye Eye exam: Present: normal appearance, conjuntiva pink, sclera anicteric - Neck Neck exam general surgery: Present: supple, trachea midline. Absent: lymphadenopathy - Respiratory Respiratory exam: Present: CTAB. Absent: accessory muscle use, chest wall tenderness, decreased breath sounds, rales, respiratory distress, rhonchi, stridor, wheezes - Cardiovascular Cardiovascular exam: Present: RRR, +S1, +S2. Absent: diastolic murmur, gallop, rubs, systolic murmur - GI/Abdominal GI/Abdominal exam: Present: normal bowel sounds, soft, no peritoneal signs. Absent: distended, hepatomegaly, tenderness - Extremities Exam Extremities exam: Present: normal capillary refill, normal inspection, warm, radial pulses palpable and symmetrical. Absent: calf tenderness, cyanotic, pedal edema - Neurological Exam Neurological exam: Present: alert, oriented X3, no focal deficits. Absent: facial droop, speech deficit - Skin Skin exam: Present: dry, intact, normal color, warm. Absent: rash Internal Medicine: Result - Labs CBC & Chem 7: 06/13/17 06:34 06/13/17 06:34 Labs: Short CBC 06/13/17 Range/Units 06:34 WBC 3.2 L (4.3-11.1) K/mcL Hgb 10.3 L (12.9-16.9) g/dL Hct 33.2 L (37.5-50.1) % Plt Count 78 L (140-400) K/mcL Neutrophils # 1.8 (1.6-8.9) K/mcL BMP 06/12/17 06/13/17 19:09 06:34 Sodium 138 Potassium 5.0 H D 4.8 H Chloride 104 Carbon Dioxide 28 BUN 25 D Creatinine 1.21 Glucose 131 H Calcium 8.6 - ABG Interpretation ABG results: PT/INR, D-dimer PT 12.5 Seconds (9.4-12.1) H 06/11/17 05:12 - Impressions Impressions Retroperitoneum Ultrasound 06/12/17 20:00 IMPRESSION: The right kidney is small and hyperechoic consistent with atrophy. Left kidney is normal. No evidence of hydronephrosis. D/ / Esteban Garvey MD / Esteban Garvey MD Interpreting Provider: Esteban Garvey MD - VTE Documentation of Mechanical Device: Graduated compression elastic hosiery Consult Discharge Plan - Plan Referrals: Niko Knight MD [Primary Care Provider] -
[2017-06-13 16:20] LABS: Osmolality,Urine 471 mOsm/kg (300-1090)
--- NOTE | 2017-06-13 17:13 | Nephrology Progress Note ---
Date of Encounter: 06/13/17 - Assessment and Plan (1) Hyperkalemia Current Visit: Yes Status: Acute Improved from 6.1 to 4.8 after kayexalate Continue renal diet (2) OLEG (acute kidney injury) Current Visit: No Status: Acute SCr normalized at 1.21, GFR >60 UOP good Will sign off, please reconsult prn. can followup on discharge within 4-6 weeks (3) CKD (chronic kidney disease) stage 3, GFR 30-59 ml/min Current Visit: Yes Status: Acute Baseline GFR 50s-60 No proteinuria noted on urine Subjective Principal diagnosis: chest pain Interval history: Pt seen and examined with complaint of nausea and vomiting since yesterday and back pain, nurse aware. BM yesterday after kayexalate Objective - Vital Signs Vital signs: Vital Signs Temp Pulse Resp BP Pulse Ox 06/13/17 16:05 98.8 F 50 16 111/59 96 06/13/17 11:23 98.2 F 52 14 139/69 98 06/13/17 07:41 98 F 67 17 155/84 96 06/13/17 03:24 97.9 F 82 16 146/88 98 06/12/17 22:36 98.5 F 74 16 154/100 95 06/12/17 18:51 98.0 F 84 16 124/70 99 Intake and Output 06/13/17 06/13/17 06/13/17 07:59 15:59 23:59 Intake Total 600 / 600 Output Total 500 / 500 Balance -500 / -500 600 / 600 Intake: Oral 600 / 600 Output: Urine 500 / 500 Other: Meal Lunch Percent of Meal Consumed 100% Weight 98.747 kg Blood Glucose* 162 100 201 Patient Weight 06/13/17 23:59 Weight 98.747 kg - Lab 06/13/17 06:34 06/13/17 06:34 Most recent lab results Calcium 8.6 mg/dL (8.6-10.8) 06/13/17 06:34 Phosphorus 3.9 mg/dL (2.3-4.7) 06/11/17 05:12 Magnesium 2.2 mg/dL (1.6-2.6) 06/11/17 05:12 Urine Creatinine 30 mg/dL 06/13/17 07:30 Urine Sodium 159.0 mEq/L 06/13/17 07:30 Urine Total Protein < 7 mg/dL (1-14) 06/13/17 07:30 - VTE Documentation of Mechanical Device: Graduated compression elastic hosiery Consult Discharge Plan - Plan Referrals: Niko Knight MD [Primary Care Provider] -
[2017-06-13] MEDS ORDERED: 0.9 % Sodium Chloride 250 ML ONE ×2 (20:16→23:04)
[2017-06-13] MEDS: rOPINIRole 1 MG TABLET PO SCH (22:23)
[2017-06-13] MEDS: traZODone 50 MG TABLET PO SCH (22:23)
[2017-06-14] MEDS: Ondansetron 4 MG/2 ML VIAL IVP PRN ×3 (05:19→19:55)
[2017-06-14 05:37] LABS: Basophils % 0.3 %; Eosinophils # 0.1 K/mcL (0.0-0.6); Eosinophils % 2.7 %; Hematocrit 30.9 % (37.5-50.1); Hemoglobin 9.8 g/dL (12.9-16.9); Immature Granulocytes % 0.3 % (0-4); Lymphocytes # 0.9 K/mcL (0.6-4.6); Mean Corpuscular HGB Conc 31.7 g/dL (31.6-35.5); Mean Corpuscular Volume 94.5 fL (83.0-100.0); Mean Platelet Volume 11.6 fL (9.4-12.4); Monocytes # 0.2 K/mcL (0.0-1.3); Neutrophils # 1.8 K/mcL (1.6-8.9); Red Blood Count 3.27 M/mcL (4.19-5.50); Red Cell Distribution Width 14.6 % (11.5-14.5); Segmented Neutrophils % 58.7 %
[2017-06-14 05:38] LABS: Platelet Count 83 K/mcL (140-400)
[2017-06-14 05:50] LABS: BUN/Creatinine Ratio 15 (6-26); Blood Urea Nitrogen 19 mg/dL (8-26); Calcium 8.7 mg/dL (8.6-10.8); Carbon Dioxide 26 mEq/L (19-29); Chloride 104 mEq/L (98-109); Glucose 132 mg/dL (70-99); Osmolality,Calculated 286 (280-300); Potassium 4.9 mEq/L (3.5-4.5); Sodium 136 mEq/L (136-145); eGFR For African Americans > 60 (> 60); eGFR For Non-African Americans 56 (> 60)
[2017-06-14] MEDS: Insulin LISPRO 300 UNITS/3 ML VIAL SQ SCH ×3 (07:38→17:36)
[2017-06-14] MEDS: Aspirin 81 MG TAB.CHEW PO SCH (07:41)
[2017-06-14] MEDS: Ranolazine 500 MG TAB.ER.12H PO SCH ×3 (07:42→19:56)
[2017-06-14] MEDS: 0.9 % Sodium Chloride 1,000 ML IVC SCH (07:46)
[2017-06-14] MEDS: Gabapentin 300 MG CAPSULE PO SCH ×3 (07:46→19:56)
--- NOTE | 2017-06-14 09:50 | Oncology Inp Consult Note ---
Date of Encounter: 06/14/17 Time of Encounter: 08:00 Assessment and Plan (1) Pancytopenia Status: Acute Assessment and plan: Chronic, patient has history of cirrhosis, hypersplenism without any recent worsening, his lab works at his baseline. We will obtain additional lab works for evaluation of anemia/iron/folate supplementation if needed. He is clear to undergo procedure by cardiology. Please transfuse platelets ( with risk of thrombosis) prior to planned procedure and recheck if platelets are upto desired level by cardiology. Current platelet level seems to be adequate for longterm antiplatelet/anticoagulation therapy, need to be monitored subsequently. PAtient was reviewed plan/treatment as above and he has stated understanding. - Data of Consult Requesting Physician: Kelsea Low CNP Primary Care Provider: Niko Knight MD - Consult Narrative Reason for consult: pancytopenia History of present illness: Mr. Grewal is a 62 year old male with a medical history significant for coronary artery disease, syncopal episode, history of diabetes mellitus, history of hypertension, fatty liver, cirrhosis, congestive heart failure, history of CVA, gastrin esophageal reflux disease, patient has had prior hospitalizations for chest pain he was hospitalized for precordial chest pain and dizziness, to rule out acute chest syndrome. Patient was seen by cardiology , and a cardiac catheterization is planned hematology consulted for evaluation of pancytopenia for procedural intervention. Patient has a history dating back to 40 years [address] seen by Dr[address] Lau for possible ITP, she had a biopsy of the liver in May 2004 that showed a stage IV cirrhosis. Patient also been followed up by gastroenterology with CT scan and endoscopies. Admission labs showed plt of 147--down to around 78k (06/13/17). She has chronically fluctuating platelets due to hypersplenism He was transfused plt 2 units, plt upto 83k. Patient has no bruising or bleeding symptoms. His pain is somewhat better. Past Med Surg Social Fam HX - Past Medical History Medical history: cirrhosis, CHF, coronary artery disease, CVA, diabetes, GERD, hypertension, myocardial infarction, thyroid disease, other Psychiatric history: no psych history - Past Surgical History Surgical History: appendectomy, cholecystectomy, coronary bypass (CABG), orthopedic, other, pacemaker/AICD - Social History Smoking Status: Never smoker Smokeless Tobacco Status: No Alcohol use: none Drug use: none - Family History Father Living Status: Hx Family Cardiac Disorders: Yes (Mi, bi pass) Brother Living Status: Hx Family Cardiac Disorders: Yes Mother Living Status: Hx Family Cardiac Disorders: No Medications and Allergies Levothyroxine [Synthroid] 50 mcg PO QAM 04/08/15 [History] Omeprazole [PriLOSEC] 40 mg PO BID 04/08/15 [History] Promethazine [Phenergan] 25 mg PO TID PRN 12/03/15 [History] Gabapentin [Neurontin] 900 mg PO TID 08/03/16 [History] Oxycodone HCl 10 mg PO BID 08/03/16 [History] Tizanidine HCl 4 mg PO QPM 08/03/16 [History] Aspirin 81 mg PO DAILY #30 tab.chew 08/06/16 [Rx] Atorvastatin [Lipitor] 40 mg PO HS 03/17/17 [History] Ropinirole HCl [Requip] 4 mg PO HS 05/01/17 [History] Trazodone HCl 100 - 200 mg PO HS 05/01/17 [History] DULoxetine [Cymbalta] 30 mg PO DAILY 06/10/17 [History] 3 Allergy/AdvReac Type Severity Reaction Status Date / Time morphine Allergy Intermediate Hives Verified 06/10/17 10:53 codeine Allergy Mild Itching Verified 06/10/17 10:53 Penicillins AdvReac Severe COMA Verified 06/10/17 10:53 nitroglycerin AdvReac Mild LOW BLOOD Verified 06/10/17 10:53 PRESSURE NITRATES Allergy Mild Itching Uncoded 06/10/17 10:53 NUBAIN Allergy Mild Itching Uncoded 06/10/17 10:53 Review of systems: as in HPI Oncology - Exam - Constitutional Vitals: Temp Pulse Resp BP Pulse Ox 97.5 F L 62 18 196/77 98 06/14/17 07:09 06/14/17 07:09 06/14/17 07:09 06/14/17 07:09 06/14/17 07:09 General appearance: no acute distress, obese - Head Head exam: Present: atraumatic - Eye Eye exam: Present: sclera anicteric - ENT ENT exam: Present: mucous membranes moist - Neck Neck exam: Present: full ROM - Respiratory Respiratory exam: Present: CTAB - Cardiovascular Cardiovascular exam: Present: +S1, +S2 - GI/Abdominal GI/Abdominal exam: Present: normal bowel sounds, soft - Extremities Exam Extremities exam: Present: normal inspection - Neurological Exam Neurological exam: Present: alert, CN II-XII intact, oriented X3 - Psychiatric Psychiatric exam: Present: normal affect, normal mood - Skin Skin exam: Present: dry, normal color Oncology - Results Labs: Short CBC 06/14/17 Range/Units 04:41 WBC 3.0 L (4.3-11.1) K/mcL Hgb 9.8 L (12.9-16.9) g/dL Hct 30.9 L (37.5-50.1) % Plt Count 83 L (140-400) K/mcL Neutrophils # 1.8 (1.6-8.9) K/mcL BMP 06/14/17 04:41 Sodium 136 Potassium 4.9 H Chloride 104 Carbon Dioxide 26 BUN 19 Creatinine 1.29 H Glucose 132 H Calcium 8.7 Cardiac Enzymes 06/13/17 Range/Units 15:58 Troponin I 0.00 (0-0.03) ng/mL Consult Discharge Plan - Plan Referrals: Niko Knight MD [Primary Care Provider] -
[2017-06-14 10:41] LABS: Potassium,Urine 14.5 mEq/L
[2017-06-14] MEDS: *HR* OxyCODONE Immed Rel 5 MG TABLET PO PRN ×2 (12:00→23:59)
--- NOTE | 2017-06-14 15:33 | Event Note ---
Date of Encounter: 06/14/17 Time of Encounter: 15:00 - Cardiology Event Note Reviewed oncology consultation, states ok to proceed with LHC. States platelets are stable for dual anti-platelet therapy. Will make NPO after midnight and plan for LHC in am. Can give platelets prior to procedure.
[2017-06-14] MEDS: *HR* Promethazine 25 MG/ML VIAL IM PRN (15:38)
--- NOTE | 2017-06-14 16:51 | Internal Med Progress Note ---
Date of Encounter: 06/14/17 Time of Encounter: 15:45 - Assessment and plan (1) Chest pain Current Visit: No Status: Acute Assessment and plan: Patient denies chest pain during assessment. Nonanginal chest pain. EKG: Multiple pauses noted. This is new as compared to the previous EKG. Echocardiogram: 12/2016: Left ventricular ejection fraction: 60%, mildly dilated right ventricle, moderate dilation of the left atrium, atypical septal motion consistent with paced rhythm. Nuclear stress test: 11/2015 negative for ischemia/infarct. LHC 2011: Proximal LAD 100%, LAUGHLIN to LAD patent, SVG to made PDA occluded, good- quality collaterals. Serial troponin negative. Chest x-ray is negative. Arrival was sinus rhythm with sinus arrhythmia and a right bundle branch block with a rate of 79, QRS 149 and QTC 439. Stress test 06/12/17 EF 55% with a small size, mild intensity, reversible inferoseptal perfusion defect, possibly due to ischemia. Cardiology was consulted. Patient is intolerant to nitrates and beta blockers. He is on Ranexa has known coronary artery disease. Cardiology will plan for LHC when Plt count is higher and renal function is improved. I will transfuse pt with 2 units of platelets and have consulted oncology to assess for liklihood that pt could have DAPT after LHC if necessary. Oncology saw patient today, state that he is cleared to have LHC, as well as DPT after catheter. Cardiology is planning on LHC in the morning. Plan is to transfuse platelets if count is less then 100. Continue telemetry Treat chest pain with aspirin and nitroglycerin Qualifiers: Chest pain type: unspecified Qualified Code(s): R07.9 - Chest pain, unspecified (2) Cirrhosis Current Visit: No Status: Chronic Assessment and plan: Per patient history. LFTs stable. Most likely cause of pts pancytopenia. Continue to monitor. Qualifiers: Hepatic cirrhosis type: other cirrhosis Qualified Code(s): K74.69 - Other cirrhosis of liver (3) CAD (coronary artery disease) Current Visit: Yes Status: Chronic Assessment and plan: Patient presents with recurrent chest pain. Patient has known coronary artery disease status post CABG. Patient had LHC 2011 that showed multivessel disease. Per Cardiology note: TTE 12/2016 with LVEF 55-60%, RV mildly dilated with systolic function normal, mild to moderately dilated left atrium, mild TR, mild PH. Stress this admission with ischemia noted to inferoseptal territory. ON asa, statin. Not on beta joo due to "blood pressure won't tolerate." Pt taking Ranexa. Intolerant to nitrates. Will have LHC in the a.m. Platelet infusion prior to procedure. Oncology clears for DAPT after LHC. Qualifiers: Coronary Disease-Associated Artery/Lesion type: unspecified vessel or lesion type [place] vs. transplanted heart: [place] heart Associated angina: with unspecified angina Qualified Code(s): I25.119 - Atherosclerotic heart disease of [place] coronary artery with unspecified angina pectoris (4) Nausea & vomiting Current Visit: Yes Status: Acute Assessment and plan: Patient reports intractable nausea vomiting for the last 4-5 years. Takes IM Phenergan at home. Unknown etitology. CT abd/pelvis negative. Abd distended, normal for pt, and non-tender to palpation Continue with phenergan IM , patient also has Zofran by mouth. Denies today Abdomen/Pelvis CT 06/11/17 18:40 IMPRESSION: 1. No acute abnormality within the abdomen and pelvis. 2. Chronic changes noted above. D/ / Patrick Mattson MD / Patrick Mattson MD Interpreting Provider: Patrick Mattson MD Qualifiers: Vomiting type: unspecified Vomiting Intractability: non-intractable Qualified Code(s): R11.2 - Nausea with vomiting, unspecified (5) Pancytopenia Current Visit: Yes Status: Acute Assessment and plan: Chronic thrombocytopenia, leukopenia, and anemia. MOst likely due to chronic cirrhosis and CKD. Continue to monitor. Patient will see if platelet transfusion in the morning if platelet count is less than 100. [facility] tomorrow. (6) Syncope Current Visit: Yes Status: Resolved Assessment and plan: Reports episode of near syncope on day of presentation. Occurred the setting of retching, possibly secondary to vasovagal stimulation. Concern for possible sedation with excessive pain medication. Head CT negative. Chest X-Ray 06/10/17 09:56 IMPRESSION: No acute cardiopulmonary process. D/ / Silviano Garcia MD / Silviano Garcia MD Interpreting Provider: Silviano Garcia MD Head CT 06/10/17 13:00 IMPRESSION: No acute intracranial abnormality. D/ / Guera Alvarez MD / Guera Alvarez MD Interpreting Provider: Guera Alvarez MD Qualifiers: Syncope type: unspecified Qualified Code(s): R55 - Syncope and collapse (7) Chronic back pain Current Visit: Yes Status: Acute Assessment and plan: Patient reports chronic low back pain. This is per his history. Continue home medications. Stable. No further workup needed at this time. Qualifiers: Back pain location: low back pain Back pain laterality: bilateral Sciatica presence: with sciatica Sciatica laterality: sciatica laterality unspecified Qualified Code(s): M54.40 - Lumbago with sciatica, unspecified side; G89.29 - Other chronic pain; G89.29 - Other chronic pain (8) CKD (chronic kidney disease) stage 3, GFR 30-59 ml/min Current Visit: Yes Status: Acute Assessment and plan: Sr CR 1.29, GFR 56. Appears to be at pt's baseline. Pt with hyperkalemia, given Kayexelate and will continue to monitor. Nephrology following, I appreciate their recommendations consultation, they have signed off currently due to normalization of patient's labs. We may reconsult as needed. - Subjective Interval history: Patient was seated assessed at bedside at 1545. He denies chest pain and states that nausea is resolved for now. For the first day, patient is not requesting pain medication increase or complaining of pain. Patient is aware of plan for tomorrow. He is agreeable. - Constitutional Vitals: Temp Pulse Resp BP Pulse Ox 98.7 F 50 16 124/64 96 06/14/17 16:00 06/14/17 16:00 06/14/17 16:00 06/14/17 16:00 06/14/17 16:00 General appearance: Present: cooperative, A&O X 3, pleasant, no acute distress, answers questions appropriately - Head Head exam: Present: atraumatic, normal inspection, normocephalic - Eye Eye exam: Present: normal appearance, conjuntiva pink, sclera anicteric - Neck Neck exam general surgery: Present: supple, trachea midline. Absent: lymphadenopathy - Respiratory Respiratory exam: Present: CTAB. Absent: accessory muscle use, chest wall tenderness, rales, rhonchi, wheezes - Cardiovascular Cardiovascular exam: Present: RRR, +S1, +S2. Absent: diastolic murmur, gallop, rubs, systolic murmur - GI/Abdominal GI/Abdominal exam: Present: normal bowel sounds, soft, no peritoneal signs. Absent: distended, hepatomegaly, tenderness - Extremities Exam Extremities exam: Present: normal capillary refill, normal inspection, pedal edema, warm, radial pulses palpable and symmetrical. Absent: calf tenderness, cyanotic - Neurological Exam Neurological exam: Present: alert, oriented X3, no focal deficits. Absent: facial droop, speech deficit - Skin Skin exam: Present: dry, intact, normal color, warm Internal Medicine: Result - Labs CBC & Chem 7: 06/14/17 04:41 06/14/17 04:41 Labs: Short CBC 06/14/17 Range/Units 04:41 WBC 3.0 L (4.3-11.1) K/mcL Hgb 9.8 L (12.9-16.9) g/dL Hct 30.9 L (37.5-50.1) % Plt Count 83 L (140-400) K/mcL Neutrophils # 1.8 (1.6-8.9) K/mcL BMP 06/14/17 04:41 Sodium 136 Potassium 4.9 H Chloride 104 Carbon Dioxide 26 BUN 19 Creatinine 1.29 H Glucose 132 H Calcium 8.7 - ABG Interpretation ABG results: PT/INR, D-dimer PT 12.5 Seconds (9.4-12.1) H 06/11/17 05:12 - VTE Documentation of Mechanical Device: Graduated compression elastic hosiery Consult Discharge Plan - Plan Referrals: Niko Knight MD [Primary Care Provider] -
[2017-06-14] MEDS: traZODone 50 MG TABLET PO SCH (19:56)
[2017-06-14] MEDS: rOPINIRole 1 MG TABLET PO SCH (19:56)
[2017-06-15 03:00] LABS: Eosinophils # 0.1 K/mcL (0.0-0.6); Eosinophils % 3.1 %; Hematocrit 32.5 % (37.5-50.1); Hemoglobin 10.1 g/dL (12.9-16.9); Immature Granulocytes % 0.2 % (0-4); Immature Platelets 5.5 % (1.1-6.1); Lymphocytes % 34.5 %; Mean Corpuscular HGB Conc 31.1 g/dL (31.6-35.5); Mean Corpuscular Hemoglobin 29.7 pg (28.0-33.3); Mean Corpuscular Volume 95.6 fL (83.0-100.0); Mean Platelet Volume 11.3 fL (9.4-12.4); Monocytes # 0.3 K/mcL (0.0-1.3); Monocytes % 7.5 %; Neutrophils # 2.3 K/mcL (1.6-8.9); Red Cell Distribution Width 14.9 % (11.5-14.5); Segmented Neutrophils % 54.7 %
[2017-06-15 03:04] LABS: Lymphocytes # 1.5 K/mcL (0.6-4.6); Platelet Count 99 K/mcL (140-400)
[2017-06-15] MEDS: Ondansetron 4 MG/2 ML VIAL IVP PRN ×3 (03:10→21:42)
[2017-06-15 03:25] LABS: Calcium 8.7 mg/dL (8.6-10.8)
[2017-06-15] MEDS: *HR* Heparin 5,000 UNIT/ML VIAL SQ SCH ×3 (06:12→21:43)
[2017-06-15] MEDS: Ranolazine 500 MG TAB.ER.12H PO SCH ×2 (09:58→21:43)
[2017-06-15] MEDS: Aspirin 81 MG TAB.CHEW PO SCH (09:58)
[2017-06-15] MEDS: Gabapentin 300 MG CAPSULE PO SCH ×3 (09:58→21:42)
[2017-06-15] MEDS: Insulin LISPRO 300 UNITS/3 ML VIAL SQ SCH ×3 (10:08→18:17)
--- NOTE | 2017-06-15 10:54 | Electrocardiograph Report ---
[address] [address] Test Date: 2017-06-13 Pat Name: Ar Grewal Department: 113 Room: 3B Gender: M [employer]: : 1955 Requested By: Kelsea Low Order Number: [id number] Reading MD: Shayan Moseley MD Measurements Intervals [place] Rate: 49 P: 61 [place]: 177 QRS: -9 QRSD: 144 T: 52 QT: 447 QTc: 418 Interpretive Statements ELECTRONIC ATRIAL PACEMAKER RIGHT BUNDLE BRANCH BLOCK Electronically Signed On 06-15-2017 10:52:55 EST by Shayan Moseley MD
--- NOTE | 2017-06-15 11:02 | Event Note ---
Date of Encounter: 06/15/17 Time of Encounter: 10:45 - Cardiology Event Note PLan for LHC today for recurrent chest pain. Risks versus benefits of LHC explained to patient. Patient states understanding and agreeable to proceed. updated on allergies to nitrates, intolerant to beta blockers. updated on creatinine og 1.56. Further recommendations pending LHC.
[2017-06-15 15:25] LABS: Total Volume 24 Hour,Urine 3.24 Liters (0.80-1.80)
[2017-06-15 15:39] LABS: Creatinine 24 Hour,Urine 1.46 g/day (0.71-1.65)
[2017-06-15] MEDS ORDERED: *HR* Heparin 10,000 UNIT/10 ML VIAL ONE (16:52)
[2017-06-15] MEDS ORDERED: 0.9 % Sodium Chloride 1,000 ML ONE ×2 (16:52→17:03)
[2017-06-15] MEDS ORDERED: Heparin 1,000 UNITS/500 mL NS 500 ML ONE (16:52)
[2017-06-15] MEDS ORDERED: Verapamil 5 MG/2 ML VIAL ONE (16:52)
[2017-06-15] MEDS ORDERED: Nitroglycerin 1,000 MCG/10 ML VIAL IV ONE (16:53)
[2017-06-15] MEDS ORDERED: *HR* Midazolam HCl 2 MG/2 ML VIAL ONE ×2 (17:03→17:36)
[2017-06-15] MEDS ORDERED: *HR* FentaNYL (PF) 100 MCG/2 ML VIAL ONE (17:03)
--- NOTE | 2017-06-15 17:06 | Pre-Sedation Evaluation ---
Pre-sedation evaluation - Pre-sedation checklist Date of procedure: 06/15/17 Procedure: cardiac cath Recent Vitals: Last Vital Signs Temp 98.4 F 06/15/17 14:51 Pulse 50 06/15/17 14:51 Resp 15 06/15/17 14:51 BP 152/71 06/15/17 14:51 Pulse Ox 92 06/15/17 14:51 H&P (including ROS) documented in medical record: Yes Previous reaction to sedatives/anesthetics: No Dietary Status: NPO after Midnight Dentition: No loose teeth or bridges ASA Classification *see protocol: CLASS II-Mild systemic disease Plan of Care: Pt appropriate candidate for procedure/moderate/conscious sedation , Risks/benefits of procedure/sedation discussed w/ patient/family
--- NOTE | 2017-06-15 17:59 | Event Note ---
Date of Encounter: 06/15/17 Time of Encounter: 17:57 - Cardiology Event Note Per discussion with , no intervention necessary on [facility]. Cardiology will sign off and will follow in outpatient setting. Follow up set.
--- NOTE | 2017-06-15 18:00 | Internal Med Progress Note ---
Date of Encounter: 06/15/17 Time of Encounter: 15:40 - Assessment and plan (1) Chest pain Current Visit: No Status: Acute Assessment and plan: Patient denies chest pain during assessment. Nonanginal chest pain. EKG: Multiple pauses noted. This is new as compared to the previous EKG. Echocardiogram: 12/2016: Left ventricular ejection fraction: 60%, mildly dilated right ventricle, moderate dilation of the left atrium, atypical septal motion consistent with paced rhythm. Nuclear stress test: 11/2015 negative for ischemia/infarct. LHC 2011: Proximal LAD 100%, LAUGHLIN to LAD patent, SVG to made PDA occluded, good- quality collaterals. Serial troponin negative. Chest x-ray is negative. Arrival was sinus rhythm with sinus arrhythmia and a right bundle branch block with a rate of 79, QRS 149 and QTC 439. Stress test 06/12/17 EF 55% with a small size, mild intensity, reversible inferoseptal perfusion defect, possibly due to ischemia. Cardiology was consulted. Patient is intolerant to nitrates and beta blockers. He is on Ranexa has known coronary artery disease. Cardiology will plan for LHC when Plt count is higher and renal function is improved. Patient was transfused with 2 units of platelets, oncology states patient is okay for procedure, as well as DAPT after procedure. Patient cleared for LHC, will be later today. Continue telemetry Treat chest pain with aspirin and nitroglycerin Qualifiers: Chest pain type: unspecified Qualified Code(s): R07.9 - Chest pain, unspecified (2) Cirrhosis Current Visit: No Status: Chronic Assessment and plan: Per patient history. LFTs stable. Most likely cause of pts pancytopenia. Continue to monitor. Abdomen soft, nondistended, bowel sounds present. Qualifiers: Hepatic cirrhosis type: other cirrhosis Qualified Code(s): K74.69 - Other cirrhosis of liver (3) CAD (coronary artery disease) Current Visit: Yes Status: Chronic Assessment and plan: Patient presents with recurrent chest pain. Patient has known coronary artery disease status post CABG. Patient had LHC 2011 that showed multivessel disease. Per Cardiology note: TTE 12/2016 with LVEF 55-60%, RV mildly dilated with systolic function normal, mild to moderately dilated left atrium, mild TR, mild PH. Stress this admission with ischemia noted to inferoseptal territory. ON asa, statin. Not on beta joo due to "blood pressure won't tolerate." Pt taking Ranexa. Intolerant to nitrates. Will have LHC today. Platelets 99. Oncology clears for DAPT after C. Qualifiers: Coronary Disease-Associated Artery/Lesion type: unspecified vessel or lesion type [place] vs. transplanted heart: [place] heart Associated angina: with unspecified angina Qualified Code(s): I25.119 - Atherosclerotic heart disease of [place] coronary artery with unspecified angina pectoris (4) Nausea & vomiting Current Visit: Yes Status: Acute Assessment and plan: Patient reports intractable nausea vomiting for the last 4-5 years. Takes IM Phenergan at home. Unknown etitology. CT abd/pelvis negative. Abd distended, normal for pt, and non-tender to palpation Continue with phenergan IM , patient also has Zofran by mouth. Denies today. Abdomen/Pelvis CT 06/11/17 18:40 IMPRESSION: 1. No acute abnormality within the abdomen and pelvis. 2. Chronic changes noted above. D/ / Patrick Mattson MD / Patrick Mattson MD Interpreting Provider: Patrick Mattson MD Qualifiers: Vomiting type: unspecified Vomiting Intractability: non-intractable Qualified Code(s): R11.2 - Nausea with vomiting, unspecified (5) Pancytopenia Current Visit: Yes Status: Acute Assessment and plan: Chronic thrombocytopenia, leukopenia, and anemia. MOst likely due to chronic cirrhosis and CKD. Continue to monitor. Patient will see if platelet transfusion in the morning if platelet count is less than 100. [facility] today, platelets 99. Cardiology and oncology cleared for procedure. (6) Syncope Current Visit: Yes Status: Resolved Qualifiers: Syncope type: unspecified Qualified Code(s): R55 - Syncope and collapse (7) Chronic back pain Current Visit: Yes Status: Acute Assessment and plan: Patient reports chronic low back pain. This is per his history. Continue home medications. Stable. No further workup needed at this time. Qualifiers: Back pain location: low back pain Back pain laterality: bilateral Sciatica presence: with sciatica Sciatica laterality: sciatica laterality unspecified Qualified Code(s): M54.40 - Lumbago with sciatica, unspecified side; G89.29 - Other chronic pain; G89.29 - Other chronic pain (8) CKD (chronic kidney disease) stage 3, GFR 30-59 ml/min Current Visit: Yes Status: Acute Assessment and plan: Sr CR 1.56, GFR 45. Appears to be at pt's baseline. Pt with hyperkalemia, given Kayexelate again today and will continue to monitor. Nephrology following, I appreciate their recommendations consultation, they have signed off currently due to normalization of patient's labs. We may reconsult as needed. - Time Spent With Patient less than 15 minutes - Subjective Interval history: Patient was seated assessed at bedside at 1540. He denies chest pain and states that nausea is resolved for now. Patient again today requests increased amount of pain medication due to "pinched nerves in my back." Again today, I explained to him I will not be increasing his medication for his pain. Patient is aware of cardiac catheter today and denies questions or concerns. He denies chest pain, shortness of breath, headache or blurred vision. No abdominal pain , nausea, vomiting, diarrhea. - Constitutional Vitals: Temp Pulse Resp BP Pulse Ox 98.4 F 50 15 152/71 92 06/15/17 14:51 06/15/17 14:51 06/15/17 14:51 06/15/17 14:51 06/15/17 14:51 General appearance: Present: cooperative, A&O X 3, pleasant, no acute distress, answers questions appropriately - Head Head exam: Present: atraumatic, normal inspection, normocephalic - Eye Eye exam: Present: normal appearance, conjuntiva pink, sclera anicteric - Neck Neck exam general surgery: Present: supple, trachea midline. Absent: lymphadenopathy, tenderness - Respiratory Respiratory exam: Present: CTAB. Absent: accessory muscle use, chest wall tenderness, decreased breath sounds, rales, respiratory distress, rhonchi, wheezes - Cardiovascular Cardiovascular exam: Present: RRR, +S1, +S2. Absent: diastolic murmur, gallop, rubs, systolic murmur - GI/Abdominal GI/Abdominal exam: Present: hepatomegaly, normal bowel sounds, soft. Absent: distended, tenderness - Extremities Exam Extremities exam: Present: normal capillary refill, normal inspection, warm, radial pulses palpable and symmetrical. Absent: calf tenderness, cyanotic, pedal edema, tenderness - Neurological Exam Neurological exam: Present: alert, oriented X3, no focal deficits. Absent: altered, facial droop, speech deficit - Skin Skin exam: Present: dry, intact, normal color, warm. Absent: rash Internal Medicine: Result - Labs CBC & Chem 7: 06/15/17 02:35 06/15/17 02:35 Labs: Short CBC 06/15/17 Range/Units 02:35 WBC 4.2 L (4.3-11.1) K/mcL Hgb 10.1 L (12.9-16.9) g/dL Hct 32.5 L (37.5-50.1) % Plt Count 99 L (140-400) K/mcL Neutrophils # 2.3 (1.6-8.9) K/mcL BMP 06/15/17 02:35 Sodium 135 L Potassium 5.0 H Chloride 104 Carbon Dioxide 25 BUN 20 Creatinine 1.56 H Glucose 156 H Calcium 8.7 - ABG Interpretation ABG results: PT/INR, D-dimer PT 12.5 Seconds (9.4-12.1) H 06/11/17 05:12 - VTE Documentation of Mechanical Device: Graduated compression elastic hosiery Consult Discharge Plan - Plan Referrals: Niko Knight MD [Primary Care Provider] -
--- NOTE | 2017-06-15 18:06 | Invasive Diagnostic Lab Proc ---
Name: Ar Grewal Date of Study: 06/15/2017 Date: 1955 Ht: 68.9in Medical Record#: [id number] Age: 62 Wt: 213.85lb Gender: Male BSA: 2.12 Order #: [id number] BMI: 31.67 Physicians Procedure Physician: Shayan Moseley MD, [facility] Referring MD: Niko Knight MD Referring MD: Staff Name Position Time In Sites, Tami RT (R) Monitor 05:08 PM Elena Easton RT Scrub 05:08 PM Shadia Almonte RN Epic Specialist 05:08 PM Indications Indication Unstable Angina Procedures Performed Procedure L HRT ARTERY/VENTRICLE ANGIO Pre-Procedure Checklist Informed consent is complete signed and on chart. H&P is on chart. ID band is on and ID verified with patient. Patient NPO for procedure The procedure was described for the patient and questions were answered. Blood Pressure: 136/59 ECG is on chart. Rhythm: NSR Plan of Care Patient will tolerate the procedure without complications. Adequate level of comfort will be maintained. Hemodynamics will remain stable Patient will recover from procedure without complications. Respiratory function will be maintained. Cardiac rhythm will remain stable. Patient temperature will be maintained. Patient and/or family have verbalized understanding of the procedure. Patient Education Intravenous Access Time IV Size Location DC'd Fluid/Drip Rate Units RN 18g 1 /" Patent On Arrival Rt Antecubital 0.9NaCl 25 ml/hr Shadia Almonte RN Allergies PCN NTG codeine NUBAIN Nalbuphine morphine Vital Signs Time BP (mmHg) HR (bpm) O2 Sat. RR (bpm) LOC 05:11 PM 136 / 59 61 95 % 16 5 = Fully awake and oriented or at pre-proc level 05:35 PM / % 5 = Fully awake and oriented or at pre-proc level 05:35 PM / % 4 = Oriented but drowsy 05:19 PM 162 / 98 51 100 % 05:25 PM 138 / 70 50 95 % 27 05:29 PM 124 / 72 49 99 % 15 05:34 PM 127 / 75 50 99 % 27 05:39 PM 144 / 73 49 100 % 13 05:44 PM 133 / 78 52 97 % 17 05:49 PM 126 / 76 49 93 % 15 05:54 PM 151 / 115 49 98 % 16 Procedural Medications Time Medication Dose Units Method Given By 05:34 PM Oxygen 2 L/min nasal cannula Shadia Almonte RN 05:34 PM Versed 2 mg Intravenous [place]Shadia tse RN 05:34 PM Fentanyl 50 mcg Intravenous Shadia Almonte RN 05:37 PM Versed 1 mg Intravenous Shadia Almonte RN 05:37 PM Fentanyl 25 mcg Intravenous Shadia Almonte RN 05:37 PM Lidocaine 2% 20 ml Subcutaneous Shayan Moseley MD, FACC 05:45 PM Fentanyl 25 mcg Intravenous Shadia Almonte RN ASA Classification: CLASS II- Mild systemic disease (i.e. well-controlled diabetes, hypertension, asthma, cigarette smoking) Rhoda Score Preprocedure Postprocedure Activity 2- Moves 4 extremities sustained head lift Activity 2- Moves 4 extremities sustained head lift Circulation 2- SBP +/= 20 points of pre-anesthetic level Circulation 2- SBP +/= 20 points of pre-anesthetic level Consciousness 2- Awake and alert oriented x 3 Consciousness 2- Awake and alert oriented x 3 O2 Saturation 2- Able to maintain O2 satruation of 92% on room air O2 Saturation 2- Able to maintain O2 satruation of 92% on room air Respiratory 2- Able to deep breathe and cough well Respiratory 2- Able to deep breathe and cough well Total Score 10 Total Score 10 Contrast Agent: Isovue Diagnostic Contrast: 76 ml Total Contrast: 76 ml Fluoro Dose: 262 mGy Procedure Log Time Note Enter By 04:58 PM CathStat 05:08 PM Pt arrived to sleep lab technician 2 at 17:08 tsites 05:08 PM Tami Griffin RT (R) Position: Monitor Time in: 17:08 tsites 05:08 PM Elena Easton RT Position: Scrub Time in: 17:08 tsites 05:08 PM Shadia Almonte RN Position: Epic Specialist Time in: 17:08 tsites 05:08 PM Patient charges- Angio tray pack, Navilyst 3mm J, Pulse Oximetry and ACIST tubing and transducer tsites 05:08 PM Case Delayed No tsites 05:08 PM Physician arrived 17:08 tsites 05:09 PM Meet and greet completed tsites 05:09 PM Sign in performed according to hospital policy. tsites 05:09 PM Procedure start 17:09 tsites 05:18 PM Vitals capture started with the following parameters, Patient=Adult, Interval=5 min, Initial Wlmkeorb=010 mmHg, Deflation Rate=5 mmHg, Cuff placed on Right Arm 05:19 PM HR=51 bpm, RHDI=291/98 mmhg, UwE7=030 % 05:25 PM HR=50 bpm, CSMY=498/70 mmhg, SpO2=95.0 %, Resp=27 B/min 05:25 PM Recorded ECG: HR=50 Condition=Condition 1 05:29 PM HR=49 bpm, LLYC=620/72 mmhg, SpO2=99.0 %, Resp=15 B/min 05:31 PM Pressure channel 1 zeroed. 05:32 PM Pressure channel 1 zeroed. 05:34 PM Hair removed from procedure site in holding area using clippers. Bilateral groin prepped with Chloraprep by Shadia Almonte RN, safety strap applied then patient was draped. Skin intact. tsites 05:34 PM Time: 17:34 Oxygen on at 2 L/min per nasal cannula by Shadia Almonte RN tsites 05:34 PM Time: 17:34 Versed 2 mg Intravenous Given by Shadia Almonte RN ts 05:34 PM Time: 17:34 Fentanyl 50 mcg Intravenous Given by Shadia Almonte RN tsites 05:34 PM HR=50 bpm, CHBN=573/75 mmhg, SpO2=99.0 %, Resp=27 B/min 05:35 PM Time: 17:35 Patient comfortable and pain free: Yes tsites 05:35 PM Time: 17:35LOC: 5 = Fully awake and oriented or at pre-proc level tsites 05:35 PM Clinical Presentation: Unstable angina tsites 05:35 PM Time out performed according to hospital policy tsites 05:37 PM Time: 17:37 Versed 1 mg Intravenous Given by Shadia Almonte RN tsites 05:37 PM Time: 17:37 Fentanyl 25 mcg Intravenous Given by Shadia Almonte RN tsites 05:37 PM Time: 17:37 20 ml Lidocaine 2% to right groin Subcutaneous Given by Shayan Moseley MD, [facility] tsites 05:37 PM Access obtained by percutaneous puncture. 5Fr 10cm Terumo [place] sheath placed in right Femoral artery. [id number] tsites 05:37 PM 5Fr FR 4 catheter inserted over the wire [facility] tsites 05:39 PM HR=49 bpm, AYNN=606/73 mmhg, LiI4=597.0 %, Resp=13 B/min 05:40 PM RCA angiography performed in multiple views. tsites 05:40 PM Recorded Pressure: Ao, HR=50, Condition=Condition 1 (Aorta) Ao 126/73/96 05:40 PM Lesion found in Mid RCA. Pre Stenosis: 100 Pre JAMI Flow: tsites 05:40 PM Right Coronary, Right Posterior Descending Arteries with Right Posterolateral and Acute Marginal branches with 100 % stenosis. If graft is supplying this area, 0 % stenosis tsites 05:41 PM 0.035 260cm Navilyst 3mmJ wire [id number] tsites 05:41 PM Catheter removed tsites 05:41 PM 5Fr IM catheter inserted over the wire [id number] tsites 05:42 PM Left [place] to the LAD angio performed in multiple views. tsites 05:44 PM HR=52 bpm, ABAM=120/78 mmhg, SpO2=97.0 %, Resp=17 B/min 05:44 PM Catheter removed tsites 05:44 PM 5Fr FL 4 catheter inserted over the wire [facility] tsites 05:45 PM LCA angiography performed in multiple views. tsites 05:45 PM Recorded Pressure: Ao, HR=51, Condition=Condition 1 (Aorta) Ao 130/80/103 05:45 PM Time: 17:45 Fentanyl 25 mcg Intravenous Given by Shadia Almonte RN tsites 05:47 PM Catheter removed tsites 05:47 PM 5Fr Pigtail catheter inserted over the wire [facility] tsites 05:47 PM Catheter selectively placed in left ventricle tsites 05:47 PM Recorded Pressure: LV, HR=50, Condition=Condition 1 (Left Ventricle) LV 163/7/20 05:47 PM Bolus angiogram of left Ventricle complete: 11 ml/sec for a total of 25 mls tsites 05:48 PM Recorded Pressure: LV, Ao, HR=49, Condition=Condition 1 (Left Ventricle) LV 177/13/26, (Aorta) Ao 171/83/113 05:48 PM Catheter removed tsites 05:48 PM Bolus angiogram of right Femoral complete: 2 ml/sec for a total of 4 mls tsites 05:49 PM HR=49 bpm, AZDE=418/76 mmhg, SpO2=93.0 %, Resp=15 B/min 05:50 PM Lesion found in Proximal LAD. Pre Stenosis: 100 Pre JAMI Flow: tsites 05:50 PM Time: 17:35LOC: 4 = Oriented but drowsy tsites 05:50 PM Time: 17:35 Patient comfortable and pain free: Yes tsites 05:51 PM Lesion found in Mid Circumflex. Pre Stenosis: 20 Pre JAMI Flow: tsites 05:51 PM Proximal Left Anterior Descending Coronary Artery with 100% stenosis. If graft is supplying this territory, 0 % stenosis. tsites 05:51 PM Circumflex, Obtuse Marginal, Left Posterior Descending, and Left Posterolateral Coronary Arteries with 20 % stenosis. If graft is supplying this area, 0 % stenosis tsites 05:52 PM Procedure completed at 17:52 tsites 05:52 PM Sign out completed: Radiation Dose 262 mGy Fluoro Time: 2.9 Isovue 370 - 500ml contrast 76.3 ml given by Shayan Moseley MD, [facility]. Complications: NoneCardiac Rehab Consult needed: NoConfirmed administered medications: Yes tsites 05:52 PM Isovue 370 - 500ml,1 Bottle(s) used. tsites 05:53 PM Arterial sheath pulled, Mynx closure device used and was Successful S/N. tsites 05:53 PM Estimated Blood Loss: minimal tsites 05:53 PM Post ECG NSR tsites 05:53 PM Post Blood Pressure 126/76 tsites 05:54 PM 17:54 Post Pulses Bilateral DP & PT 2+ tsites 05:54 PM Information taught Cardiac Cath and Mynx tsites 05:54 PM Education needs Procedure, Plan of Care, and Responsibilities of Patient in Care tsites 05:54 PM Learning barriers :None tsites 05:54 PM Education Methods Verbal tsites 05:54 PM Education evaluation Able to repeat information tsites 05:54 PM Site status No bleeding/hematoma - Rt Groin as reported by Elena Easton RT at 17:54 tsites 05:54 PM Opsite applied tsites 05:54 PM HR=49 bpm, QMKT=677/115 mmhg, SpO2=98 %, Resp=16 B/min 05:55 PM no family at this time tsites 05:55 PM Delay to floor No tsites 05:55 PM Patient out of room: 17:55 tsites 05:55 PM Report given to RN Pt taken to 3B Room #63. 17:55 tsites Complications Complication None Hemodynamics Pressures Site Systolic/A Wave Diastolic/V Wave Mean AO 126 73 96 AO 130 80 103 LV 163 7 20 LV 177 13 26 AO 171 83 113 Post Procedure Information Blood Pressure: 126/76 mmHg Rhythm: NSR Post procedural instructions were given Closure Device Time Device Success/Fail 06/15/2017 5:56:00 PM MynxGrip Successful Site Checks Time Location Status Staff Sheath In? Note 05:54 PM Rt Groin No bleeding/hematoma Elena Easton RT Pulses Time Site Pre-Procedure Post-Procedure Note 06/15/2017 5:11:00 PM Bilateral DP & PT 2+ 06/15/2017 5:11:00 PM Bilateral radial 2+ 5:54:00 PM Bilateral DP & PT 2+ Updated by Tami Griffin RT (R) on 06/15/2017 6:00:44 PM Tami Griffin RT electronically signed on 06/15/2017 6:01:10 PM with status of Final
[2017-06-15] MEDS ORDERED: Ondansetron 4 MG/2 ML VIAL ONE (18:09)
--- NOTE | 2017-06-15 18:18 | Invasive Diagnostic Lab Proc ---
Name: Ar Grewal Date of Study: 06/15/2017 Date: 1955 Ht: 68.9in Medical Record#: [id number] Age: 62 Wt: 213.85lb Gender: Male BSA: 2.12 Order #: [id number] BMI: 31.67 Physicians Procedure Physician: Shayan Moseley MD, [facility] Referring MD: Niko Knight MD Referring MD: Staff Name Position Time In Sites, Tami RT (R) Monitor 05:08 PM Elena Easton RT Scrub 05:08 PM Shadia Almonte RN Content Production Specialist 05:08 PM Indications Indication Unstable Angina Procedures Performed Procedure L HRT ARTERY/VENTRICLE ANGIO Pre-Procedure Checklist Informed consent is complete signed and on chart. H&P is on chart. ID band is on and ID verified with patient. Patient NPO for procedure The procedure was described for the patient and questions were answered. Blood Pressure: 136/59 ECG is on chart. Rhythm: NSR Plan of Care Patient will tolerate the procedure without complications. Adequate level of comfort will be maintained. Hemodynamics will remain stable Patient will recover from procedure without complications. Respiratory function will be maintained. Cardiac rhythm will remain stable. Patient temperature will be maintained. Patient and/or family have verbalized understanding of the procedure. Patient Education Intravenous Access Time IV Size Location DC'd Fluid/Drip Rate Units RN 18g 1 /" Patent On Arrival Rt Antecubital 0.9NaCl 25 ml/hr Shadia Almonte RN Allergies PCN NTG codeine NUBAIN Nalbuphine morphine Vital Signs Time BP (mmHg) HR (bpm) O2 Sat. RR (bpm) LOC 05:11 PM 136 / 59 61 95 % 16 5 = Fully awake and oriented or at pre-proc level 05:35 PM / % 5 = Fully awake and oriented or at pre-proc level 05:35 PM / % 4 = Oriented but drowsy 05:19 PM 162 / 98 51 100 % 05:25 PM 138 / 70 50 95 % 27 05:29 PM 124 / 72 49 99 % 15 05:34 PM 127 / 75 50 99 % 27 05:39 PM 144 / 73 49 100 % 13 05:44 PM 133 / 78 52 97 % 17 05:49 PM 126 / 76 49 93 % 15 05:54 PM 151 / 115 49 98 % 16 Procedural Medications Time Medication Dose Units Method Given By 05:34 PM Oxygen 2 L/min nasal cannula Shadia Almonte RN 05:34 PM Versed 2 mg Intravenous [place] 05:34 PM Fentanyl 50 mcg Intravenous Shadia Almonte RN 05:37 PM Versed 1 mg Intravenous Shadia Almonte RN 05:37 PM Fentanyl 25 mcg Intravenous Shadia Almonte RN 05:37 PM Lidocaine 2% 20 ml Subcutaneous Shayan Moseley MD, FACC 05:45 PM Fentanyl 25 mcg Intravenous Shadia Almonte RN 06:13 PM Zofran 4 mg Intravenous Shadia Almonte RN ASA Classification: CLASS II- Mild systemic disease (i.e. well-controlled diabetes, hypertension, asthma, cigarette smoking) Rhoda Score Preprocedure Postprocedure Activity 2- Moves 4 extremities sustained head lift Activity 2- Moves 4 extremities sustained head lift Circulation 2- SBP +/= 20 points of pre-anesthetic level Circulation 2- SBP +/= 20 points of pre-anesthetic level Consciousness 2- Awake and alert oriented x 3 Consciousness 2- Awake and alert oriented x 3 O2 Saturation 2- Able to maintain O2 satruation of 92% on room air O2 Saturation 2- Able to maintain O2 satruation of 92% on room air Respiratory 2- Able to deep breathe and cough well Respiratory 2- Able to deep breathe and cough well Total Score 10 Total Score 10 Contrast Agent: Isovue Diagnostic Contrast: 76 ml Total Contrast: 76 ml Fluoro Dose: 262 mGy Procedure Log Time Note Enter By 04:58 PM CathStat 05:08 PM Pt 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 tsites 05:09 PM Procedure start 17:09 tsites 05:18 PM Vitals capture started with the following parameters, Patient=Adult, Interval=5 min, Initial Gwccmggd=615 mmHg, Deflation Rate=5 mmHg, Cuff placed on Right Arm 05:19 PM HR=51 bpm, OXIX=427/98 mmhg, BlO9=547 % 05:25 PM HR=50 bpm, SFCG=290/70 mmhg, SpO2=95.0 %, Resp=27 B/min 05:25 PM Recorded ECG: HR=50 Condition=Condition 1 05:29 PM HR=49 bpm, NPEF=255/72 mmhg, SpO2=99.0 %, Resp=15 B/min 05:31 PM Pressure channel 1 zeroed. 05:32 PM Pressure channel 1 zeroed. 05:34 PM Hair removed from procedure site in holding area using clippers. Bilateral groin prepped with Chloraprep by Shadia Almonte RN, safety strap applied then patient was draped. Skin intact. tsites 05:34 PM Time: 17:34 Oxygen on at 2 L/min per nasal cannula by Shadia Almonte RN :34 PM Time: 17:34 Versed 2 mg Intravenous Given by Shadia Almonte RN 05:34 PM Time: 17:34 Fentanyl 50 mcg Intravenous Given by Shadia Almonte RN tsites 05:34 PM HR=50 bpm, QMSV=924/75 mmhg, SpO2=99.0 %, Resp=27 B/min 05:35 PM Time: 17:35 Patient comfortable and pain free: Yes 05:35 PM Time: 17:35LOC: 5 = Fully awake and oriented or at pre-proc level tsites 05:35 PM Clinical Presentation: Unstable angina ts 05:35 PM Time out performed according to hospital policy tsites 05:37 PM Time: 17:37 Versed 1 mg Intravenous Given by Shadia Almonte RN tsites 05:37 PM Time: 17:37 Fentanyl 25 mcg Intravenous Given by Shadia Almonte RN ts 05:37 PM Time: 17:37 20 ml Lidocaine 2% to right groin Subcutaneous Given by Shayan Moseley MD, [facility] tsites 05:37 PM Access obtained by percutaneous puncture. 5Fr 10cm Terumo [place] sheath placed in right Femoral artery. [id number] tsites 05:37 PM 5Fr FR 4 catheter inserted over the wire DNC tsites 05:39 PM HR=49 bpm, REZH=744/73 mmhg, SdP6=898.0 %, Resp=13 B/min 05:40 PM RCA angiography performed in multiple views. tsites 05:40 PM Recorded Pressure: Ao, HR=50, Condition=Condition 1 (Aorta) Ao 126/73/96 05:40 PM Lesion found in Mid RCA. Pre Stenosis: 100 Pre JAMI Flow: tsites 05:40 PM Right Coronary, Right Posterior Descending Arteries with Right Posterolateral and Acute Marginal branches with 100 % stenosis. If graft is supplying this area, 0 % stenosis tsites 05:41 PM 0.035 260cm Navilyst 3mmJ wire [id number] tsites 05:41 PM Catheter removed tsites 05:41 PM 5Fr IM catheter inserted over the wire [id number] tsites 05:42 PM Left [place] to the LAD angio performed in multiple views. tsites 05:44 PM HR=52 bpm, IKDH=568/78 mmhg, SpO2=97.0 %, Resp=17 B/min 05:44 PM Catheter removed tsites 05:44 PM 5Fr FL 4 catheter inserted over the wire DN tsites 05:45 PM LCA angiography performed in multiple views. tsites 05:45 PM Recorded Pressure: Ao, HR=51, Condition=Condition 1 (Aorta) Ao 130/80/103 05:45 PM Time: 17:45 Fentanyl 25 mcg Intravenous Given by Shadia Almonte RN tsites 05:47 PM Catheter removed tsites 05:47 PM 5Fr Pigtail catheter inserted over the wire [facility] tsites 05:47 PM Catheter selectively placed in left ventricle tsites 05:47 PM Recorded Pressure: LV, HR=50, Condition=Condition 1 (Left Ventricle) LV 163/7/20 05:47 PM Bolus angiogram of left Ventricle complete: 11 ml/sec for a total of 25 mls tsites 05:48 PM Recorded Pressure: LV, Ao, HR=49, Condition=Condition 1 (Left Ventricle) LV 177/13/26, (Aorta) Ao 171/83/113 05:48 PM Catheter removed tsites 05:48 PM Bolus angiogram of right Femoral complete: 2 ml/sec for a total of 4 mls tsites 05:49 PM HR=49 bpm, YZEB=445/76 mmhg, SpO2=93.0 %, Resp=15 B/min 05:50 PM Lesion found in Proximal LAD. Pre Stenosis: 100 Pre JAMI Flow: tsites 05:50 PM Time: 17:35LOC: 4 = Oriented but drowsy tsites 05:50 PM Time: 17:35 Patient comfortable and pain free: Yes tsites 05:51 PM Lesion found in Mid Circumflex. Pre Stenosis: 20 Pre JAMI Flow: tsites 05:51 PM Proximal Left Anterior Descending Coronary Artery with 100% stenosis. If graft is supplying this territory, 0 % stenosis. tsites 05:51 PM Circumflex, Obtuse Marginal, Left Posterior Descending, and Left Posterolateral Coronary Arteries with 20 % stenosis. If graft is supplying this area, 0 % stenosis tsites 05:52 PM Procedure completed at 17:52 tsites 05:52 PM Sign out completed: Radiation Dose 262 mGy Fluoro Time: 2.9 Isovue 370 - 500ml contrast 76.3 ml given by Shayan Moseley MD, [facility]. Complications: NoneCardiac Rehab Consult needed: NoConfirmed administered medications: Yes tsites 05:52 PM Isovue 370 - 500ml,1 Bottle(s) used. tsites 05:53 PM Arterial sheath pulled, Mynx closure device used and was Successful S/N. tsites 05:53 PM Estimated Blood Loss: minimal tsites 05:53 PM Post ECG NSR tsites 05:53 PM Post Blood Pressure 126/76 tsites 05:54 PM 17:54 Post Pulses Bilateral DP & PT 2+ tsites 05:54 PM Information taught Cardiac Cath and Mynx tsites 05:54 PM Education needs Procedure, Plan of Care, and Responsibilities of Patient in Care tsites 05:54 PM Learning barriers :None tsites 05:54 PM Education Methods Verbal tsites 05:54 PM Education evaluation Able to repeat information tsites 05:54 PM Site status No bleeding/hematoma - Rt Groin as reported by Elena Easton RT at 17:54 tsites 05:54 PM Opsite applied tsites 05:54 PM HR=49 bpm, YTOQ=759/115 mmhg, SpO2=98 %, Resp=16 B/min 05:55 PM no family at this time tsites 05:55 PM Delay to floor No tsites 05:55 PM Patient out of room: 17:55 tsites 05:55 PM Report given to Perla LOVING Pt taken to Room #63. 17:55 tsites 06:13 PM Time: 18:13 Zofran 4 mg Intravenous Given by Shadia Almonte RN Complications Complication None Hemodynamics Pressures Site Systolic/A Wave Diastolic/V Wave Mean AO 126 73 96 AO 130 80 103 LV 163 7 20 LV 177 13 26 AO 171 83 113 Post Procedure Information Blood Pressure: 126/76 mmHg Rhythm: NSR Post procedural instructions were given Closure Device Time Device Success/Fail 06/15/2017 5:56:00 PM MynxGrip Successful Site Checks Time Location Status Staff Sheath In? Note 05:54 PM Rt Groin No bleeding/hematoma Elena Easton RT Pulses Time Site Pre-Procedure Post-Procedure Note 06/15/2017 5:11:00 PM Bilateral DP & PT 2+ 06/15/2017 5:11:00 PM Bilateral radial 2+ 5:54:00 PM Bilateral DP & PT 2+ Updated by Tami Griffin RT (R) on 06/15/2017 6:13:48 PM Tami Griffin RT electronically signed on 06/15/2017 6:14:13 PM with status of Final
[2017-06-15] MEDS: *HR* Promethazine 25 MG/ML VIAL IM PRN (18:41)
[2017-06-15] MEDS: *HR* OxyCODONE Immed Rel 5 MG TABLET PO PRN (21:43)
[2017-06-15] MEDS: rOPINIRole 1 MG TABLET PO SCH (21:43)
[2017-06-15] MEDS: traZODone 50 MG TABLET PO SCH (21:43)
[2017-06-16] MEDS: tiZANidine 4 MG TABLET PO PRN (01:44)
[2017-06-16 05:04] LABS: Basophils % 0.2 %; Eosinophils # 0.1 K/mcL (0.0-0.6); Eosinophils % 2.5 %; Hemoglobin 10.1 g/dL (12.9-16.9); Immature Granulocytes % 0.2 % (0-4); Lymphocytes # 1.6 K/mcL (0.6-4.6); Lymphocytes % 33.3 %; Mean Corpuscular HGB Conc 31.6 g/dL (31.6-35.5); Mean Corpuscular Hemoglobin 29.9 pg (28.0-33.3); Mean Corpuscular Volume 94.7 fL (83.0-100.0); Mean Platelet Volume 11.7 fL (9.4-12.4); Monocytes # 0.4 K/mcL (0.0-1.3); Monocytes % 7.6 %; Neutrophils # 2.7 K/mcL (1.6-8.9); Platelet Count 116 K/mcL (140-400); Red Blood Count 3.38 M/mcL (4.19-5.50); Red Cell Distribution Width 14.9 % (11.5-14.5); Segmented Neutrophils % 56.2 %
[2017-06-16 05:24] LABS: BUN/Creatinine Ratio 17 (6-26); Blood Urea Nitrogen 22 mg/dL (8-26); Calcium 8.8 mg/dL (8.6-10.8); Carbon Dioxide 25 mEq/L (19-29); Chloride 104 mEq/L (98-109); Glucose 120 mg/dL (70-99); Osmolality,Calculated 289 (280-300); Potassium 4.5 mEq/L (3.5-4.5); Sodium 137 mEq/L (136-145); eGFR For African Americans > 60 (> 60); eGFR For Non-African Americans 55 (> 60)
[2017-06-16] MEDS: *HR* Heparin 5,000 UNIT/ML VIAL SQ SCH ×2 (06:02→12:40)
[2017-06-16] MEDS: *HR* OxyCODONE Immed Rel 5 MG TABLET PO PRN ×2 (06:02→12:48)
[2017-06-16] MEDS: Ondansetron 4 MG/2 ML VIAL IVP PRN ×2 (06:12→12:49)
[2017-06-16] MEDS: Insulin LISPRO 300 UNITS/3 ML VIAL SQ SCH ×2 (09:42→12:50)
[2017-06-16] MEDS: Ranolazine 500 MG TAB.ER.12H PO SCH (09:48)
[2017-06-16] MEDS: Aspirin 81 MG TAB.CHEW PO SCH (09:48)
[2017-06-16] MEDS: Gabapentin 300 MG CAPSULE PO SCH (09:48)
[2017-06-16] MEDS: *HR* Promethazine 25 MG/ML VIAL IM PRN (09:54)
[2017-06-16 11:55] VITALS: BP 129/68
--- NOTE | 2017-06-16 13:17 | Discharge Summary ---
Date of Encounter: 06/16/17 Time of Encounter: 13:15 - Discharge Diagnosis (1) Chest pain Priority: Primary Status: Acute Comments: underwentcardiac cath no intervention done stabel for discharge Qualifiers: Chest pain type: unspecified Qualified Code(s): R07.9 - Chest pain, unspecified (2) CAD (coronary artery disease) of bypass graft Priority: Secondary Status: Chronic Comments: remote cabg Qualifiers: [place] vs. transplanted heart: lummi heart Associated angina: angina presence unspecified Qualified Code(s): I25.810 - Atherosclerosis of coronary artery bypass graft(s) without angina pectoris (3) Diabetes mellitus Priority: Secondary Status: Chronic Qualifiers: Diabetes mellitus type: type 2 Diabetes mellitus complication status: with kidney complications Diabetes mellitus complication detail: with chronic kidney disease Diabetes mellitus assistant terminal manager insulin use: unspecified assistant terminal manager insulin use status Chronic kidney disease stage: stage 3 (moderate) Qualified Code(s): E11.22 - Type 2 diabetes mellitus with diabetic chronic kidney disease; N18.3 - Chronic kidney disease, stage 3 (moderate); N18.3 - Chronic kidney disease, stage 3 (moderate) (4) Hypertension Priority: Secondary Status: Chronic Qualifiers: Qualified Code(s): I10 - Essential (primary) hypertension (5) Hyperlipemia Priority: Secondary Status: Chronic Qualifiers: Hyperlipidemia type: unspecified Qualified Code(s): E78.5 - Hyperlipidemia , unspecified (6) Hypothyroid Priority: Secondary Status: Chronic Qualifiers: Hypothyroidism type: unspecified Qualified Code(s): E03.9 - Hypothyroidism , unspecified (7) OLEG (acute kidney injury) Priority: Secondary Status: Acute - Discharge Medications Home Medications: Levothyroxine [Synthroid] 50 mcg PO QAM 04/08/15 [History] Omeprazole [PriLOSEC] 40 mg PO BID 04/08/15 [History] Promethazine [Phenergan] 25 mg PO TID PRN 12/03/15 [History] Gabapentin [Neurontin] 900 mg PO TID 08/03/16 [History] Oxycodone HCl 10 mg PO BID 08/03/16 [History] Tizanidine HCl 4 mg PO QPM 08/03/16 [History] Aspirin 81 mg PO DAILY #30 tab.chew 08/06/16 [Rx] Atorvastatin [Lipitor] 40 mg PO HS 03/17/17 [History] Ropinirole HCl [Requip] 4 mg PO HS 05/01/17 [History] Trazodone HCl 100 - 200 mg PO HS 05/01/17 [History] DULoxetine [Cymbalta] 30 mg PO DAILY 06/10/17 [History] Allergies/Adverse Reactions: 3 Allergy/AdvReac Type Severity Reaction Status Date / Time morphine Allergy Intermediate Hives Verified 06/10/17 10:53 codeine Allergy Mild Itching Verified 06/10/17 10:53 Penicillins AdvReac Severe COMA Verified 06/10/17 10:53 nitroglycerin AdvReac Mild LOW BLOOD Verified 06/10/17 10:53 PRESSURE NITRATES Allergy Mild Itching Uncoded 06/10/17 10:53 NUBAIN Allergy Mild Itching Uncoded 06/10/17 10:53 Procedures/tests Complete & Pending: Procedures Performed prior 72 hours Category Date Time Status CL Cardiac Catheterization [CL] Routine Home Sales Service Professional 06/15/17 11:00 Ordered ECG 12 lead ECG [ECG] Stat Y 06/13/17 15:49 Completed Date of admission: 06/10/17 13:12 Primary care physician: Niko Knight MD Consults: 06/11/17 00:34 Consult to Creative Technologist [CONS] Routine Reason for SW Consult: patient reports trouble finding HH that is covered by insurance 06/12/17 08:51 Consult to Nephrology [CONS] Routine Consulting Provider: [facility]/[place] Reason for Consult: evaluation of renal function and hyperkalemia Call Completed: No 06/12/17 10:47 Consult to Cardiology [CONS] Routine Comment: Consulting Provider: Cardiology Erica Reason for Consult: abnormal stress Time Notified: 10:48 Call Completed: Yes 06/13/17 15:04 Consult to Oncology [CONS] Routine Consulting Provider: [facility] Reason for Consult: Pt with abnormal stress test, needs to have LHC. Chronic thrombocytopenia, will transfuse today. Pt will need DAPT after cath if stented, cardiology requesting recommendations prior to proceeding. Call Completed: Yes 06/13/17 15:24 Consult to Oncology Hematology [CONS] Routine Consulting Provider: [facility] [place] Reason for Consult: Chronic thrombocytopenia 2* to cirrhosis and CKDIII. Pt needs LHC, cardiology requesting recommendation on possibility of DAPT after LHC if stented. Will transfuse for procedure. Time Notified: 15:26 Call Completed: Yes Discharging clinician: Beka Paige Anticipated date of discharge: 06/16/17 - Patient Status Disposition: Home, Self-Care Condition: Good Overall status at discharge: patient is back to baseline - Discharge Instructions Follow Up With: Niko Knight MD [Primary Care Provider] - Hospital course: Mr. Grewal is a 62 year old male patient admitted with chest pain seen by cardiology had cath but no intervention needs pacemaker chech which will be done as OP - Time Spent with Patient Total time spent providing and/or coordinating discharge services: - Constitutional Vitals: Temp Pulse Resp BP Pulse Ox 98.5 F 68 16 129/68 96 06/16/17 11:50 06/16/17 11:50 06/16/17 11:50 06/16/17 11:50 06/16/17 11:50 General appearance: Present: cooperative, A&O X 3, pleasant, no acute distress, answers questions appropriately - VTE Documentation of Mechanical Device: Graduated compression elastic hosiery
--- NOTE | 2017-06-16 13:51 | Physician Discharge Referral ---
Home Health/Hosp Referral Info Transfer to: Home Health Provider in Charge Post Discharge: PCP - Diagnosis (1) Chest pain Status: Acute (2) CAD (coronary artery disease) of bypass graft Status: Chronic (3) Diabetes mellitus Status: Chronic (4) Hypertension Status: Chronic (5) Hyperlipemia Status: Chronic (6) Hypothyroid Status: Chronic (7) OLEG (acute kidney injury) Status: Acute - Respiratory Orders Smoking Cessation: Smoking cessation has been advised. For more information, call the [place] Tobacco Quit Line at 8-640-ECKG-NOW. - Services Needed Following services are medically necessary services: Nursing, Physical Therapy, Occupational Therapy - Transfer Medications Home Medications: Levothyroxine [Synthroid] 50 mcg PO QAM 04/08/15 [History] Omeprazole [PriLOSEC] 40 mg PO BID 04/08/15 [History] Promethazine [Phenergan] 25 mg PO TID PRN 12/03/15 [History] Gabapentin [Neurontin] 900 mg PO TID 08/03/16 [History] Oxycodone HCl 10 mg PO BID 08/03/16 [History] Tizanidine HCl 4 mg PO QPM 08/03/16 [History] Aspirin 81 mg PO DAILY #30 tab.chew 08/06/16 [Rx] Atorvastatin [Lipitor] 40 mg PO HS 03/17/17 [History] Ropinirole HCl [Requip] 4 mg PO HS 05/01/17 [History] Trazodone HCl 100 - 200 mg PO HS 05/01/17 [History] DULoxetine [Cymbalta] 30 mg PO DAILY 06/10/17 [History] Allergies/Adverse Reactions: 3 Allergy/AdvReac Type Severity Reaction Status Date / Time morphine Allergy Intermediate Hives Verified 06/10/17 10:53 codeine Allergy Mild Itching Verified 06/10/17 10:53 Penicillins AdvReac Severe COMA Verified 06/10/17 10:53 nitroglycerin AdvReac Mild LOW BLOOD Verified 06/10/17 10:53 PRESSURE NITRATES Allergy Mild Itching Uncoded 06/10/17 10:53 NUBAIN Allergy Mild Itching Uncoded 06/10/17 10:53 Certification: Further, I certify that my clinical findings support that this patient is homebound (i.e. absences from home require considerable and taxing effort and are for medical reasons or pentecost[employer] services or infrequently or short duration when for other reasons) because: Homebound Reason: Patient requires assistance of a person or device to safely leave home Attestation: My signature below is to certify that this patient is under my care and that I, or nurse practitioner, or a physician's assistant elementary teacher working with me, has a face-to -face encounter with this patient.
[2017-06-17 10:13] LABS: Alpha 2 Globulin (PEP) 0.77 g/dL (0.48-1.05); Beta Globulin (PEP) 0.74 g/dL (0.48-1.10)
[2017-06-17 12:45] LABS: IFE Reflexed NOT DONE
== END 2017-06-16 14:54 | disposition home health service (06) | DRG 287 ==
LOC: EMEROO 09:42 → 3BNU 09:42
PROVIDERS: ADMIT Registered Nurse; ATTEND Registered Nurse

== ENCOUNTER 2017-06-26 14:37 | Observation (INO) ==
[2017-06-26 15:18] LABS: Basophils % 0.2 %; Eosinophils # 0.1 K/mcL (0.0-0.6); Hematocrit 35.7 % (37.5-50.1); Hemoglobin 11.1 g/dL (12.9-16.9); Immature Granulocytes % 0.4 % (0-4); Lymphocytes # 0.9 K/mcL (0.6-4.6); Lymphocytes % 17.7 %; Mean Corpuscular HGB Conc 31.1 g/dL (31.6-35.5); Mean Corpuscular Hemoglobin 29.8 pg (28.0-33.3); Mean Platelet Volume 10.6 fL (9.4-12.4); Monocytes # 0.3 K/mcL (0.0-1.3); Monocytes % 5.3 %; Neutrophils # 3.9 K/mcL (1.6-8.9); Red Blood Count 3.72 M/mcL (4.19-5.50); Red Cell Distribution Width 14.4 % (11.5-14.5); Segmented Neutrophils % 75.4 %
[2017-06-26 15:19] LABS: Platelet Count 93 K/mcL (140-400)
[2017-06-26 15:23] LABS: INR 1.1; Prothrombin Time 11.8 Seconds (9.4-12.1)
[2017-06-26 15:26] LABS: Activated Partial Thrombo Time 29.1 Seconds (26.0-36.0)
[2017-06-26 15:33] LABS: Alanine Aminotransferase 15 Units/L (0-55); Albumin 3.4 g/dL (3.5-5.0); Albumin/Globulin Ratio 0.8 (1.1-2.2); Alkaline Phosphatase 107 Units/L (38-126); Aspartate Amino Transferase 25 Units/L (5-34); BUN/Creatinine Ratio 19 (6-26); Bilirubin,Direct 0.2 mg/dL (0.0-0.5); Bilirubin,Indirect 0.3 mg/dL (0.0-1.2); Bilirubin,Total 0.5 mg/dL (0.2-1.2); Blood Urea Nitrogen 24 mg/dL (8-26); Calcium 9.3 mg/dL (8.6-10.8); Carbon Dioxide 26 mEq/L (19-29); Chloride 100 mEq/L (98-109); Globulin 4.1 g/dL (2.4-3.5); Glucose 165 mg/dL (70-99); Lipase 23 Units/L (8-78); Osmolality,Calculated 294 (280-300); Potassium 4.6 mEq/L (3.5-4.5); Sodium 138 mEq/L (136-145); Total Protein 7.5 g/dL (6.0-8.3); eGFR For African Americans > 60 (> 60); eGFR For Non-African Americans 59 (> 60)
[2017-06-26 16:36] LABS: Creatine Kinase 467 Units/L (30-200)
[2017-06-26] MEDS ORDERED: 0.9 % Sodium Chloride 1,000 ML IVC ONE ×2 (17:00→17:51)
--- NOTE | 2017-06-26 18:19 | Emergency Department Note ---
Disposition Clinical Impression: Weakness, Frequent falls Rhabdomyolysis Qualifiers: Rhabdomyolysis type: traumatic Encounter type: initial encounter Qualified Code (s): T79.6XXA - Traumatic ischemia of muscle, initial encounter Disposition: Admitted As Inpatient Condition: Fair Time of Disposition: 19:00 General Adult HPI - General Chief complaint: ED Weakness Stated complaint: WEAKNESS/CHEST PAIN Time Seen by Provider: 06/26/17 14:41 Source: patient Limitations: physical limitation Nursing Notes Reviewed: Yes Vital Signs Reviewed: Yes - History of Present Illness HPI Narrative: 62-year-old male history of CABG presents to the ED with bilateral leg weakness. States yesterday he fell up to 5 times requiring his to help him up on some of those occasions. At one point he was down for over an hour. States he is not able to move his left leg since then. Reports pain in his left lower leg. He has chronic back pain as well. This weakness is new he reports. States last night 2200 was his last known well. Denies any head injury however is unable to recall the events. States are time he attempts to stand up his left leg will not move and he falls forward. Denies any neck pain or headache. He denies any recent illness, fever, cough or chills. Prior to calling EMS he did not have any chest pain. However during transport he experienced a heaviness in his chest located midsternal some associated nausea shortness of breath with radiation into his arms. On arrival here symptoms subsided he denies any chest pain. He does not have any shortness of breath. Reports recent heart catheterization with no new stent placement. Review of that cath report shows 2 vessels severe coronary artery disease with optimal medical management recommended. He had a patent grafts the proximal LAD. He had 2 vessels with 100% stenosis. At this time chest pain workup initiated. Also obtain a CT of the head to evaluate for possible stroke as he is unable to move his left leg. Also obtain CT of the cervical spine. Pain Scale: 4 - Related Data Home Medications Medication Instructions Recorded Confirmed Levothyroxine [Synthroid] 50 mcg PO QAM 04/08/15 06/26/17 Omeprazole [PriLOSEC] 40 mg PO BID 04/08/15 06/26/17 Promethazine [Phenergan] 25 mg PO TID PRN 12/03/15 06/26/17 Gabapentin [Neurontin] 900 mg PO TID 08/03/16 06/26/17 Oxycodone HCl 10 mg PO BID 08/03/16 06/26/17 Tizanidine HCl 4 mg PO QPM 08/03/16 06/26/17 Atorvastatin [Lipitor] 40 mg PO HS 03/17/17 06/26/17 Ropinirole HCl [Requip] 4 mg PO HS 05/01/17 06/26/17 Trazodone HCl 100 - 200 mg PO HS 05/01/17 06/26/17 DULoxetine [Cymbalta] 30 mg PO DAILY 06/10/17 06/26/17 Previous Rx's Medication Instructions Recorded Aspirin 81 mg PO DAILY #30 tab.chew 08/06/16 Allergies Allergy/AdvReac Type Severity Reaction Status Date / Time morphine Allergy Intermediate Hives Verified 06/10/17 10:53 codeine Allergy Mild Itching Verified 06/10/17 10:53 Penicillins AdvReac Severe COMA Verified 06/10/17 10:53 nitroglycerin AdvReac Mild LOW BLOOD Verified 06/10/17 10:53 PRESSURE NITRATES Allergy Mild Itching Uncoded 06/10/17 10:53 NUBAIN Allergy Mild Itching Uncoded 06/10/17 10:53 All systems ED: reviewed and negative except as stated. Review of Systems: As Per HPI Constitutional: Reports: weakness. Denies: fever, chills ENT ED: Denies: congestion Cardiovascular: Reports: chest pain. Denies: dyspnea on exertion Respiratory: Denies: cough, dyspnea Gastrointestinal: Denies: abdominal pain, nausea, vomiting Genitourinary: Denies: urgency, dysuria Musculoskeletal: Reports: back pain (Chronic), arthralgia, myalgia Integumentary: Denies: rash, abrasion Neurological: Reports: weakness. Denies: headache, confusion Past Medical History - Past Medical History Attestation: Yes The following information was validated with the patient. Source: patient Medical history: Reports: cirrhosis, CHF, coronary artery disease, CVA, diabetes , GERD, hypertension, myocardial infarction, thyroid disease, other Surgical history: Reports: appendectomy, cholecystectomy, coronary bypass (CABG) , orthopedic, other, pacemaker/AICD Psychiatric history: Reports: no psych history - Social History Smoking Status: Never smoker Smokeless Tobacco Status: No Alcohol use: Reports: none Drug use: Reports: none Physical Exam - General Limitations: physical limitation General appearance: alert, in no apparent distress - Head Head exam: atraumatic, normocephalic, normal inspection - Eye Eye exam: Present: normal appearance, PERRL, EOMI, other (right pupil larger than left, history of left eye injection) - ENT ENT exam: normal exam, normal oropharynx, mucous membranes dry - Neck Neck exam: Present: normal inspection, full ROM, trachea midline. Absent: tenderness - Expanded Neck Exam Neck exam focused ED: Absent: midline tenderness - Chest Chest inspection: Present: normal inspection, symmetric chest wall rise. Absent : tenderness - Respiratory Respiratory exam: Present: normal lung sounds bilaterally. Absent: respiratory distress, wheezes - Cardiovascular Cardiovascular exam: Present: regular rate, normal rhythm, normal heart sounds. Absent: systolic murmur, diastolic murmur - Expanded Cardiovascular Exam Peripheral pulses: 2+: radial (R), radial (L), dorsalis pedis (R), dorsalis pedis (L) - Abdominal Exam Abdominal exam: Present: soft, Non-Tender, normal bowel sounds, other ( ecchymosis from likely lovenox injections to lower abdomen). Absent: tenderness , distention, guarding, rebound, rigidity - Extremities Exam Extremities exam: Present: normal capillary refill, other (unable to move left lower extremity). Absent: tenderness, pedal edema, calf tenderness - Expanded Lower Extremity Exam Hip/Pelvis exam: Present: normal inspection, pelvis stable. Absent: deformity, external rotation, internal rotation, shortening Upper leg exam: Present: normal inspection. Absent: deformity Knee exam: Present: normal inspection. Absent: deformity Lower leg exam: Present: normal inspection, tenderness, other (cool to touch, symmetrical; compartments are soft in anterior, posterior, and lateral). Absent : deformity Ankle exam: Present: normal inspection Foot/toe exam: Present: normal inspection Neurovascular/Tendon exam: Present: pallor. Absent: motor deficit, sensory deficit, tendon deficit - Neurological Exam Neurological exam: Present: alert, oriented X3 - Expanded Neurological Exam Patient oriented to: Present: person, place, time Speech: Present: fluid speech Cranial nerves: EOM function (II, III, IV, ): Normal, facial sensation (V): Normal, facial palsy (VII): Normal, gag reflex (IX): Normal, spinal accessory function (XI): Normal, tongue deviation (XII): Normal Motor strength - LUE: 5/5 Motor strength - RUE: 5/5 Motor strength - LLE: 0/5 Motor strength - RLE: 4/5 Upper motor neuron exam: gerson neglect: Absent bilaterally Sensory exam upper extremity: light touch: Normal Sensory exam lower extremity: light touch: Abnormal Left - Skin Skin exam: Present: dry, intact, pallor (lower extremity), other (cool to touch in lower extremity, good palpable pulses) Course Course Narrative: 62-year-old male presents with weakness mostly to his left lower extremity. Reports frequent falls over the past day. Recent heart catheterization 2 weeks ago showed significant coronary arterial disease. Reports some chest pain prior to arrival. Pain has resolved. EKG does not show any acute ischemic changes. Chest pain workup initiated. CT of the head order to evaluate for possible stroke. Neurologic exam he has a focal deficits to the left lower extremity. He is either unable to or refuses to move that left lower extremity. Pulses are intact bilaterally. No obvious signs of deformity. Compartments are soft and did not suspect compartment syndrome. Patients in agreement with plan. Disposition pending workup. - Reevaluation(s) Reevaluation #1: CT of the head is unremarkable for. Patient denies any chest pain. Troponin was within normal limits 0.01. Anemia is stable. His CPK was significantly elevated 467. This is concerning for possible rhabdomyolysis consistent with his story. He is not showing any signs of acute kidney injury. Will aggressively fluid resuscitation. He will likely need admission. He may require home health or physical therapy to assist with gaining strength. He denies any new back pain. He does not reveal any signs of cauda equina as he denies any urinary retention, urinary incontinence, fecal incontinence, fever, or recent spinal injection. He may also require MRI. Impression is elevated CPK concern for rhabdomyolysis, generalize weakness and frequent falls. Reevaluation #2: and close friends are in the room. They project a slightly different story. states that his falls occurred 2 days ago. She had to help him up on 2 occasions. All day yesterday he has been in bed because of the pain. A friend is also in the room and confirms a story. It appears over the past several weeks his pain specialist Dr. Jones has been trying to slowly titrate his opioid requirement. He has refused to get out of the bed as a result. He has had surgery on his left hip. He has also had surgeries on his back in the past. Since then he has been having issues with his left leg including weakness. states the weakness is more pronounced and significant than before as today he is been unable to move it. The patient told his friends and his to stop tattling on him period. During this discussion I observed movements in his lower left leg. I re-examined he has some movements. Friends are not surprised by this deception. At this time I still am concerned for possible rhabdomyolysis as he has been a little more immobile. He received 2 L of normal saline and is currently on a high maintenance rate. No evidence of acute kidney injury. Impression is weakness, frequent falls and elevated CPK concerning for rhabdomyolysis. Images of his chest, CT of the head cervical spine as well as pelvis not reveal any acute abnormality. He is stable for transfer to the floor. Time: 19:10 - Consultations Consultation #1: Spoke with on-call hospitalist anderson Beth to admit for concern of rhabdomyolysis, generalized weakness, and frequent falls. No further orders at this time Time: 19:00 Vital Signs Temperature 98.2 F 06/26/17 14:38 Pulse Rate 71 06/26/17 14:38 Respiratory Rate 16 06/26/17 14:38 Blood Pressure 147/87 06/26/17 14:38 O2 Sat by Pulse Oximetry 99 06/26/17 14:38 Temperature 98.2 F 06/27/17 08:13 Pulse Rate 68 06/27/17 08:13 Respiratory Rate 16 06/27/17 08:13 Blood Pressure 161/75 06/27/17 08:13 O2 Sat by Pulse Oximetry 99 06/27/17 08:13 Oxygen Delivery Oxygen Delivery Room Air Medical Decision Making - MDM Narrative Medical decision making narrative: Patient was discussed with my attending physician who agrees with ED management and final disposition. They independently evaluated the patient. Please refer to their attestation to this encounter for additional information. This note was generated by [employer] voice recognition software and as a result grammatical or spelling errors may occur using this program. - Medical Records Medical records reviewed: Yes I reviewed the patient's medical records. - Lab Data Lab results reviewed: Yes I reviewed the patient's lab results. Result diagrams: 06/27/17 03:30 06/27/17 03:30 Lab Results 06/26/17 06/26/17 06/26/17 Range/Units 15:07 15:07 15:07 WBC 5.1 (4.3-11.1) K/mcL RBC 3.72 L (4.19-5.50) M/mcL Hgb 11.1 L (12.9-16.9) g/dL Hct 35.7 L (37.5-50.1) % MCV 96.0 (83.0-100.0) fL MCH 29.8 (28.0-33.3) pg MCHC 31.1 L (31.6-35.5) g/dL RDW 14.4 (11.5-14.5) % Plt Count 93 L (140-400) K/mcL MPV 10.6 (9.4-12.4) fL Immature Gran % 0.4 (0-4) % Seg Neutrophils % 75.4 % Lymphocytes % 17.7 % Monocytes % 5.3 % Eosinophils % 1.0 % Basophils % 0.2 % Neutrophils # 3.9 (1.6-8.9) K/mcL Lymphocytes # 0.9 (0.6-4.6) K/mcL Monocytes # 0.3 (0.0-1.3) K/mcL Eosinophils # 0.1 (0.0-0.6) K/mcL Basophils # 0.0 (0.0-0.2) K/mcL PT 11.8 (9.4-12.1) Seconds INR 1.1 APTT 29.1 (26.0-36.0) Seconds Sodium 138 (136-145) mEq/L Potassium 4.6 H (3.5-4.5) mEq/L Chloride 100 (98-109) mEq/L Carbon Dioxide 26 (19-29) mEq/L BUN 24 (8-26) mg/dL Creatinine 1.24 (0.72-1.25) mg/dL Est GFR ( Amer) > 60 (> 60) Est GFR (Non-Af Amer) 59 L (> 60) BUN/Creatinine Ratio 19 (6-26) Glucose 165 H (70-99) mg/dL Calculated Osmolality 294 (280-300) Calcium 9.3 (8.6-10.8) mg/dL Total Bilirubin 0.5 (0.2-1.2) mg/dL Direct Bilirubin 0.2 (0.0-0.5) mg/dL Indirect Bilirubin 0.3 (0.0-1.2) mg/dL AST 25 (5-34) Units/L ALT 15 (0-55) Units/L Alkaline Phosphatase 107 (38-126) Units/L Creatine Kinase 467 H (30-200) Units/L Troponin I (0-0.03) ng/mL Serum Total Protein 7.5 (6.0-8.3) g/dL Albumin 3.4 L (3.5-5.0) g/dL Globulin 4.1 H (2.4-3.5) g/dL Albumin/Globulin Ratio 0.8 L (1.1-2.2) Lipase 23 (8-78) Units/L 12/08/17 Range/Units 15:07 WBC (4.3-11.1) K/mcL RBC (4.19-5.50) M/mcL Hgb (12.9-16.9) g/dL Hct (37.5-50.1) % MCV (83.0-100.0) fL MCH (28.0-33.3) pg MCHC (31.6-35.5) g/dL RDW (11.5-14.5) % Plt Count (140-400) K/mcL MPV (9.4-12.4) fL Immature Gran % (0-4) % Seg Neutrophils % % Lymphocytes % % Monocytes % % Eosinophils % % Basophils % % Neutrophils # (1.6-8.9) K/mcL Lymphocytes # (0.6-4.6) K/mcL Monocytes # (0.0-1.3) K/mcL Eosinophils # (0.0-0.6) K/mcL Basophils # (0.0-0.2) K/mcL PT (9.4-12.1) Seconds INR APTT (26.0-36.0) Seconds Sodium (136-145) mEq/L Potassium (3.5-4.5) mEq/L Chloride (98-109) mEq/L Carbon Dioxide (19-29) mEq/L BUN (8-26) mg/dL Creatinine (0.72-1.25) mg/dL Est GFR ( Amer) (> 60) Est GFR (Non-Af Amer) (> 60) BUN/Creatinine Ratio (6-26) Glucose (70-99) mg/dL Calculated Osmolality (280-300) Calcium (8.6-10.8) mg/dL Total Bilirubin (0.2-1.2) mg/dL Direct Bilirubin (0.0-0.5) mg/dL Indirect Bilirubin (0.0-1.2) mg/dL AST (5-34) Units/L ALT (0-55) Units/L Alkaline Phosphatase (38-126) Units/L Creatine Kinase (30-200) Units/L Troponin I 0.01 (0-0.03) ng/mL Serum Total Protein (6.0-8.3) g/dL Albumin (3.5-5.0) g/dL Globulin (2.4-3.5) g/dL Albumin/Globulin Ratio (1.1-2.2) Lipase (8-78) Units/L - Radiology Data Radiology results reviewed: Yes I reviewed the patient's radiology results. Chest X-Ray 06/26/17 14:51 IMPRESSION: No evidence of acute cardiopulmonary disease. D/ / Patrick Torres MD / Patrick Torres MD Interpreting Provider: Patrick Torres MD Cervical Spine CT 06/26/17 15:59 IMPRESSION: No acute abnormality of the cervical spine. Multilevel degenerative disc disease as above. Correlation with MRI may be helpful. D/ / Esteban Garvey MD / Esteban Garvey MD Interpreting Provider: Esteban Garvey MD Head CT 06/26/17 15:59 IMPRESSION: There is mild generalized atrophy, prominent for a patient of this age. No acute intracranial abnormality. D/ / Esteban Garvey MD / Esteban Garvey MD Interpreting Provider: Esteban Garvey MD Pelvis X-Ray 06/26/17 18:43 IMPRESSION: No acute bony abnormality. D/ / Kanika Conrad Cha, MD / Kanika Conrad Cha, MD Interpreting Provider: Kanika Conrad Cha, MD - EKG Data EKG #1 EKG attestation: Yes I reviewed and interpreted this EKG. EKG results narrative: EKG performed 1441 normal sinus rhythm 69 bpm right bundle branch block, no ST elevation or depression, intervals are within normal limits. No old EKG is available for comparison. Attestation Statement - Attestation Attestation: I, Bharat Castanon, examined this patient and my medical decision-making was reviewed with the [employer]PA/Advanced Practice Nurse/Resident Physician. I agree with the documented findings, disposition and treatment plan as described except to the extent set forth below. 62-year-old male presents emergency Department with concerns of weakness to the left lower extremity as well as chest pain. Patient states he developed weakness to the left lower extremity last night at 10 PM. This was his last known well. Patient states he has been unable to move the left lower extremity since that time and has fallen to the ground multiple times. Patient states he developed chest pain in route to the hospital. He had a recent heart catheterization which showed significant coronary artery disease. CT of the head was negative for intracranial hemorrhage or mass. Initial laboratory evaluation showed elevated CPK but does not show other significant abnormality. Patient will be admitted for further evaluation of his lower extremity weakness as well as for further evaluation of his chest pain.
[2017-06-26] MEDS ORDERED: *HR* HYDROmorphone (PF) 1 MG/ML SYRINGE IVP ONE (18:44)
--- NOTE | 2017-06-26 20:17 | Internal Med History&Physical ---
<Aleksander Rhoades - Last Filed: 06/26/17 22:32> Date of Encounter: 06/26/17 Time of Encounter: 20:30 Assessment and Plan (1) Weakness of both lower extremities Current visit: Yes Status: Acute Acute bilateral weakness in LEs that began yesterday and resulted in falls at home x5. Pt. reports normal use of walker at home. Hx of CVA x3 w/last one in 2008. On exam, pt. has no neurological deficits w/exception of weakness in BLEs. No facial droop, no pronator drift. NIHSS modified scale. Apply padding to bed rails. CT of the head/brain without contrast the patient is mild generalized atrophy prominent for patient of this age. No acute intracranial abnormality. MRI of head/brain ordered w/o contrast to assess for possible infarct/ischemia. Dysphagia screen. NPO until dysphagia screen passed. Falls/ safety precautions. PT/OT consults ordered to assess pts. ambulation abilities. On exam, pts. LEs are cool to touch and have reduced pulses. Aterial imaging of BLEs ordered. Will continue pts. aspirin therapy and Lipitor. Consider neurology consult based on MRI results. Pt. discussed w/Dr. Hale who agrees w/ plan of care. Pt. is at high risk for CVA/TIA based on current sx, hx, and risk factors. Observation. (2) Elevated CK Current visit: Yes Status: Acute Acutely elevated CK of 467 on admission. Concern for rhabdomyolysis in ED. Pt. received two 1L boluses in ED w/continuation of IV 0.9 NS. Myoglobin blood and urine ordered. Monitor pt. and f/u labs. (3) Frequent falls Current visit: Yes Status: Acute Hx of acute falls x5 since yesterday. Pt. reports bilateral weakness in LEs and use of walker at home. Falls/safety precautions. PT/OT consults ordered assess patient for ambulation strength, stability, and safety. SW consult ordered to assess patient for possible needs for post-discharge planning. (4) Chest pain Current visit: Yes Status: Acute Acute chest pressure that patient states began while in the ED and he describes as constant pressure in his centralized chest w/o radiation. Was seen in late May here at [facility] for similar sx. to clear stress test showed gated EF of 55%, small sized and mild intensity reversible inferoseptal perfusion defect. Findings possibly due to ischemia. Left heart catheter with bypass study showed severe [place] 2 vessel coronary artery disease, left ventricle normal and normal contractility with EF of 60%, CABG one or 2 patent bypass grafts, occluded RCA with good quality collaterals from left coronary. Hx of triple bypass. Initial troponin 0.01. Will trend x2. Continuous cardiac telemetry. Pt. reports allergy to nitroglycerin. Aspirin therapy and statin tonight. Will consider cardiology consult based on troponins. Qualifiers: Chest pain type: unspecified Qualified Code(s): R07.9 - Chest pain, unspecified (5) OLEG (acute kidney injury) Current visit: Yes Status: Acute Acute kidney injury with GFR of 59 and creatinine of 1.24 on admission. Pt. received two 1L boluses of 0.9 NS in ED. Will monitor renal function in f/u labs and avoid nephrotoxins. Monitor I&O and daily weight. (6) Hyperkalemia Current visit: Yes Status: Acute Acute hyperkalemia with potassium level of 4.6 on admission. Pt. received 2 boluses of 0.9 NS. Will monitor potassium level in a.m. and f/u labs. (7) Anemia Current visit: Yes Status: Chronic Hx of chronic anemia with pts. current Hgb and Hct of 11.1/35.7 higher than previous baseline. Pt. denies unusual bleeding. Monitor H/H in f/u labs. Qualifiers: Anemia type: iron deficiency Iron deficiency anemia type: other iron deficiency Qualified Code(s): D50.8 - Other iron deficiency anemias (8) HLD (hyperlipidemia) Current visit: Yes Status: Chronic Hx of chronic HLD. Lipid panel in a.m. labs. Continue pts. Lipitor HS. Qualifiers: Hyperlipidemia type: pure hypercholesterolemia Qualified Code(s): E78.00 - Pure hypercholesterolemia, unspecified; E78.0 - Pure hypercholesterolemia (9) HTN (hypertension) Current visit: Yes Status: Chronic Hx of chronic HTN. Pt. reports he does not currently take anti-hypertensive medications. Hydralazine 10 mg Q6 IVP ordered if SBP >180 and/or DBP >100. Monitor pt. and VS. Qualifiers: Hypertension type: essential hypertension Qualified Code(s): I10 - Essential (primary) hypertension (10) CAD (coronary artery disease) Current visit: Yes Status: Chronic Hx of chronic CAD w/CABG and angioplasty in late May. Continuous cardiac telemetry. Continue patient's aspirin therapy and Lipitor. Pt. is currently not on anti-hypertensive medication. Monitor VS. Lipid panel in a.m. labs. Qualifiers: Coronary Disease-Associated Artery/Lesion type: unspecified vessel or lesion type [place] vs. transplanted heart: [place] heart Associated angina: with unspecified angina Qualified Code(s): I25.119 - Atherosclerotic heart disease of [place] coronary artery with unspecified angina pectoris (11) Diabetes mellitus Current visit: Yes Status: Chronic Hx of chronic diabetes. Pt. states he does not use oral anti-hyperglycemic medications or insulin at present time. BG checks ACHS. A1c in a.m. labs. Will administer low-dose correction insulin sliding scale and hypoglycemic protocol as needed. ADA diet. Qualifiers: Diabetes mellitus type: type 2 Diabetes mellitus complication status: with kidney complications Diabetes mellitus complication detail: with chronic kidney disease Diabetes mellitus residential insulin use: without residential use Chronic kidney disease stage: stage 3 (moderate) Qualified Code(s): E11.22 - Type 2 diabetes mellitus with diabetic chronic kidney disease; N18.3 - Chronic kidney disease, stage 3 (moderate); N18.3 - Chronic kidney disease, stage 3 (moderate) (12) Diastolic CHF Current visit: Yes Status: Chronic Hx of chronic diastolic CHF. Stable. Qualifiers: Congestive heart failure chronicity: chronic Qualified Code(s): I50.32 - Chronic diastolic (congestive) heart failure (13) Thyroid disease Current visit: Yes Status: Chronic Hx of chronic thyroid disease. TSH ordered in a.m. labs. Continue pts. Synthroid. (14) History of CVA (cerebrovascular accident) Current visit: Yes Status: Resolved Hx of CVAs x3. Pt. is unsure of all CVA time periods but states that last CVA was in 2008 and required extensive PT. Resolved. (15) DVT prophylaxis Current visit: Yes Status: Acute Heparin 5,000 units SQ Q8 for DVT prophylaxis. Monitor pt. for signs of bleeding. Internal Medicine - H&P: HPI Chief complaint: Bilateral leg weakness Admitted From: Emergency Dept Plans for Post Hospital Care: Home History of present illness: Mr. Grewal is a 62 year old male with medical hx of cirrhosis of the liver (non -alcoholic), CHF, CAD, CVA x3 (last one in 2008), diabetes, GERD, HTN, [place] ( several years ago), chronic anemia, and thyroid disease presents from the ED with chief complaint of bilateral leg weakness that began this morning and resulted in falls x5. Pt. is unsure if he blacked out or hit his head during these falls. Pt. also reports that he began having chest pressure while in the ED that he describes as constant, centralized pressure. Pt. reports he was admitted in late May for heart cath, echocardiogram, carotid Doppler imaging, and stress test d/t chest pain sx. Pt. reports weakness in BLEs ( moreso on the LLE than the RLE) but denies recent illness, fever, chills, nausea , vomiting, abdominal pain, diarrhea, constipation, changes in vision, headache , unusual bleeding, dizziness, or lightheadedness. Past Med Surg Social Fam HX - Past Medical History Source: patient, old records reviewed Medical history: cirrhosis, CHF, coronary artery disease, CVA (x3 with last in 2008), diabetes, GERD, hypertension, myocardial infarction (Several years ago - Pt cannot recall when), thyroid disease, other Psychiatric history: no psych history - Past Surgical History Surgical History: appendectomy, cholecystectomy, coronary bypass (CABG) (Triple) , orthopedic, other, pacemaker/AICD - Social History Smoking Status: Never smoker Smokeless Tobacco Status: No Alcohol use: none Drug use: none Current living situation: Home, With Family Activity Level: Uses cane/walker Recent Out of Country Travel Within the Last 8 Weeks: No Exposure or Possible Exposure to Illness During Travel: No - Family History Father Race: Family Member Ethnicity: Non- Living Status: Cause of : [place] Hx Family Cardiac Disorders: Yes ([place], Bypass) Brother Race: Family Member Ethnicity: Non- Living Status: Age at : 35 Cause of : MO Hx Family Cardiac Disorders: Yes (MO) Mother Race: Family Member Ethnicity: Non- Living Status: Internal Medicine - H&P: Meds RX: Levothyroxine [Synthroid] 50 mcg PO QAM 04/08/15 [History] RX: Omeprazole [PriLOSEC] 40 mg PO BID 04/08/15 [History] RX: Promethazine [Phenergan] 25 mg PO TID PRN 12/03/15 [History] RX: Gabapentin [Neurontin] 900 mg PO TID 08/03/16 [History] RX: Oxycodone HCl 10 mg PO BID 08/03/16 [History] RX: Tizanidine HCl 4 mg PO QPM 08/03/16 [History] RX: Aspirin 81 mg PO DAILY #30 tab.chew 08/06/16 [Rx] RX: Atorvastatin [Lipitor] 40 mg PO HS 03/17/17 [History] RX: Ropinirole HCl [Requip] 4 mg PO HS 05/01/17 [History] RX: Trazodone HCl 100 - 200 mg PO HS 05/01/17 [History] DULoxetine [Cymbalta] 30 mg PO DAILY 06/10/17 [History] 3 Allergy/AdvReac Type Severity Reaction Status Date / Time morphine Allergy Intermediate Hives Verified 06/10/17 10:53 codeine Allergy Mild Itching Verified 06/10/17 10:53 Penicillins AdvReac Severe COMA Verified 06/10/17 10:53 nitroglycerin AdvReac Mild LOW BLOOD Verified 06/10/17 10:53 PRESSURE NITRATES Allergy Mild Itching Uncoded 06/10/17 10:53 NUBAIN Allergy Mild Itching Uncoded 06/10/17 10:53 All Systems PM: A 10-system review of systems was performed and is negative for pertinent findings except as documented above in the HPI. - Constitutional Constitutional: as per HPI (Bilateral LEs - worse on the left), weakness, no chills, no fever(s), no night sweats - EENT Eyes: no change in vision, no discharge, no pain, no photophobia Ears: no ear discharge, no ear pain, no tinnitus Nose, mouth and throat: no dysphagia, no nasal discharge, no neck pain, no sore throat - Breasts Breasts: as per HPI - Cardiovascular Cardiovascular ROS IM: as per HPI, chest pain - Respiratory Respiratory: no cough, no dyspnea, no wheezing, no excessive phlegm production - Gastrointestinal Gastrointestinal: no abdominal pain, no diarrhea, no hematemesis, no hematochezia, no melena, no nausea, no vomiting - Genitourinary Genitourinary ROS male: as per HPI - Musculoskeletal Musculoskeletal ROS IM: as per HPI, numbness (BLEs), tingling (BLEs) - Integumentary Integumentary IM: as per HPI, sores (BLEs), unusual bruising (Bilateral LEs on shins, knees, and ankles) - Neurological Neurological ROS: as per HPI, numbness (BLEs), tingling (BLEs), no confusion, no convulsions, no focal weakness, no tremor(s) - Psychiatric Psychiatric: as per HPI - Endocrine Endocrine IM: as per HPI - Hematologic/Lymphatic Hematologic/Lymphatic: no easy bruising - Allergic/Immunologic Allergic/Immunologic: as per HPI - Constitutional Vitals: Temp Pulse Resp BP Pulse Ox 98.2 F 68 18 147/87 98 06/26/17 14:38 06/26/17 18:05 06/26/17 18:05 06/26/17 18:05 06/26/17 18:05 General appearance: Present: cooperative, A&O X 3, pleasant, no acute distress, obese, answers questions appropriately - Head Head exam: Present: atraumatic, normocephalic - Eye Eye exam: Present: PERRL, conjuntiva pink, sclera anicteric Pupils: Present: PERRL - ENT ENT exam: Present: normal exam - Neck Neck exam general surgery: Present: normal inspection, supple, trachea midline. Absent: lymphadenopathy - Respiratory Respiratory exam: Present: CTAB. Absent: accessory muscle use, rales, rhonchi, wheezes - Cardiovascular Cardiovascular exam: Present: RRR, +S1, +S2. Absent: diastolic murmur, gallop, rubs, systolic murmur - GI/Abdominal GI/Abdominal exam: Present: normal bowel sounds, soft, no peritoneal signs. Absent: distended, tenderness - Rectal Rectal exam: Present: deferred - Additional comments: exam deferred. - Extremities Exam Extremities exam: Absent: calf tenderness, cyanotic, pedal edema Additional comments: Bilateral LEs are cool to the touch and have reduced pulses on palpation. - Back Exam Back exam: Present: normal inspection - Neurological Exam Neurological exam: Present: CN II-XII intact, oriented X3, no focal deficits. Absent: pronater drift, facial droop, speech deficit - Psychiatric Psychiatric exam: Present: flat affect - Skin Skin exam: Present: dry, intact Internal Med - H&P Results - Labs CBC & Chem 7: 06/26/17 15:07 06/26/17 15:07 - EKG Data EKG shows normal: sinus rhythm - EKG Data Prior EKG available for review: no EKG comments: 06/26/17 21:45 EKG dated 06/26/17 shows sinus rhythm with right bundle branch block and abnormal ECG. - Diagnostic Studies Other Images Additional comments: Impressions Cervical Spine CT 06/26/17 15:59 IMPRESSION: No acute abnormality of the cervical spine. Multilevel degenerative disc disease as above. Correlation with MRI may be helpful. D/ / Esteban Garvey MD / Esteban Garvey MD Interpreting Provider: Esteban Garvey MD Pelvis X-Ray 06/26/17 18:43 IMPRESSION: No acute bony abnormality. D/ / Kanika Conrad Cha, MD / Kanika Conrad Cha, MD Interpreting Provider: Kanika Conrad Cha, MD Chest x-ray Additional comments: Impressions Chest X-Ray 06/26/17 14:51 IMPRESSION: No evidence of acute cardiopulmonary disease. D/ / Patrick Torres MD / Patrick Torres MD Interpreting Provider: Patrick Torres MD CT scan - head Additional comments: Impressions Head CT 06/26/17 15:59 IMPRESSION: There is mild generalized atrophy, prominent for a patient of this age. No acute intracranial abnormality. D/ / Esteban Garvey MD / Esteban Garvey MD Interpreting Provider: Esteban Garvey MD <Jose E Wyman - Last Filed: 06/27/17 03:27> Date of Encounter: 06/26/17 Internal Medicine - H&P: HPI History of present illness: Mr. Grewal is a 62 year old male All Systems PM: A 10-system review of systems was performed and is negative for pertinent findings except as documented above in the HPI. - Constitutional Vitals: Temp Pulse Resp BP Pulse Ox 97.9 F 69 16 155/83 99 06/26/17 20:21 06/26/17 20:21 06/26/17 20:21 06/26/17 20:21 06/26/17 20:21 Internal Med - H&P Results - Labs CBC & Chem 7: 06/26/17 15:07 06/26/17 15:07 Labs: Cardiac Enzymes 06/26/17 Range/Units 21:33 Troponin I 0.01 (0-0.03) ng/mL - Attending Attestation I examined this patient and my medical decision-making was reviewed with the [facility]AR[facility] HAND. I agree with the documented findings, disposition and treatment plan as described except to the extent set forth below. I have seen and examined the patient. Patient is a 62-year-old male with past medical history of CVA, diabetes, GERD, [place], coronary artery disease, CHF, hypertension and cirrhosis. Patient presents to the ED with complaints of bilateral leg weakness. Initial imaging is negative. Lab work is also negative. Awaiting MRI of brain. Continue all current medications. Patient is currently hemodynamically stable. Explained about his condition plan of care. They understood and agreed. No unanswered questions. CODE STATUS full code.
[2017-06-26] MEDS ORDERED: Naloxone 0.4 MG/ML INJ IVP PRN (20:58)
[2017-06-26] MEDS: 0.9 % Sodium Chloride 1,000 ML IVC SCH (20:59)
[2017-06-26] MEDS ORDERED: *HR* Dextrose 50 % in Water (Syg) 50 ML SYRINGE IVP PRN (21:23)
[2017-06-26] MEDS ORDERED: Dextrose Gel 15 GM PO PRN ×2 (21:23)
[2017-06-26] MEDS ORDERED: D5% in Water 1,000 ML IVC PRN (21:23)
[2017-06-26] MEDS: tiZANidine 4 MG TABLET PO SCH (22:20)
[2017-06-26] MEDS: traZODone 50 MG TABLET PO SCH (22:20)
[2017-06-26] MEDS: *HR* Heparin 5,000 UNIT/ML VIAL SQ SCH (22:21)
[2017-06-26] MEDS: Insulin LISPRO 300 UNITS/3 ML VIAL SQ SCH (22:21)
[2017-06-27] MEDS: *HR* HYDROmorphone (PF) 1 MG/ML SYRINGE IVP PRN ×5 (02:49→21:48)
[2017-06-27 03:44] LABS: Basophils % 0.5 %; Eosinophils # 0.1 K/mcL (0.0-0.6); Eosinophils % 1.5 %; Hematocrit 34.9 % (37.5-50.1); Hemoglobin 10.8 g/dL (12.9-16.9); Immature Granulocytes % 0.2 % (0-4); Immature Platelets 5.6 % (1.1-6.1); Lymphocytes % 28.6 %; Mean Corpuscular HGB Conc 30.9 g/dL (31.6-35.5); Mean Corpuscular Hemoglobin 29.9 pg (28.0-33.3); Mean Corpuscular Volume 96.7 fL (83.0-100.0); Monocytes # 0.2 K/mcL (0.0-1.3); Neutrophils # 2.6 K/mcL (1.6-8.9); Red Blood Count 3.61 M/mcL (4.19-5.50); Red Cell Distribution Width 14.4 % (11.5-14.5); Segmented Neutrophils % 64.2 %
[2017-06-27 03:54] LABS: Lymphocytes # 1.1 K/mcL (0.6-4.6); Platelet Count 98 K/mcL (140-400)
[2017-06-27 03:56] LABS: Hemoglobin A1C 5.7 %
[2017-06-27 03:57] LABS: Alanine Aminotransferase 15 Units/L (0-55); Albumin 3.3 g/dL (3.5-5.0); Albumin/Globulin Ratio 0.8 (1.1-2.2); Alkaline Phosphatase 103 Units/L (38-126); Aspartate Amino Transferase 25 Units/L (5-34); BUN/Creatinine Ratio 17 (6-26); Bilirubin,Total 0.6 mg/dL (0.2-1.2); Blood Urea Nitrogen 19 mg/dL (8-26); Carbon Dioxide 31 mEq/L (19-29); Chloride 103 mEq/L (98-109); Chol/HDL Ratio 3.6 (0-4.9); Cholesterol 151 mg/dL (< 200); Glucose 121 mg/dL (70-99); HDL Cholesterol 42 mg/dL (40-59); LDL Cholesterol,Calculated 75 mg/dL (0-99); Magnesium 1.8 mg/dL (1.6-2.6); Osmolality,Calculated 292 (280-300); Potassium 4.4 mEq/L (3.5-4.5); Sodium 139 mEq/L (136-145); Total Protein 7.3 g/dL (6.0-8.3); Triglycerides 171 mg/dL (< 150); eGFR For African Americans > 60 (> 60); eGFR For Non-African Americans > 60 (> 60)
[2017-06-27 04:18] LABS: Thyroid Stimulating Hormone 5.364 mcIU/mL (0.350-4.840)
[2017-06-27] MEDS: 0.9 % Sodium Chloride 1,000 ML IVC SCH ×3 (05:09→21:42)
[2017-06-27] MEDS: *HR* Heparin 5,000 UNIT/ML VIAL SQ SCH ×2 (05:11→14:53)
[2017-06-27] MEDS: Gabapentin 300 MG CAPSULE PO SCH ×3 (08:15→21:50)
[2017-06-27] MEDS: Aspirin 81 MG TAB.CHEW PO SCH (08:15)
[2017-06-27] MEDS: Insulin LISPRO 300 UNITS/3 ML VIAL SQ SCH ×4 (08:17→22:24)
--- NOTE | 2017-06-27 15:57 | Internal Med Progress Note ---
Date of Encounter: 06/27/17 Time of Encounter: 11:50 - Assessment and plan (1) Weakness Current Visit: Yes Status: Acute Assessment and plan: Patient has weakness in bilateral extremities. He reports onset approximately 3 days ago, he states that he is unable to bear weight on his legs, left appears to be weaker than right. He states he did not come to the emergency room because he thought he would get better. Patient with obvious weakness and decreased movement bilateral lower extremities on physical exam. History of CVA 3. He has no other focal neurological deficits. There is no facial droop, no pronator drift, no slurred speech. Dysphasia screen was ordered, patient passed successfully. Patient is unable to have MRI due to pacemaker. Head CT without contrast showed mild generalized atrophy normal for his age. There is no acute intracranial abnormality. Second head CT has been ordered. Patient had GENESIS done, bilateral lower extremities normal. Patient has bounding bilateral pedal pulses. Patient had fall yesterday, pelvis x-ray is negative. C-spine CT negative, there is multi-level degenerative disc disease. Chest x-ray is negative. Continue telemetry. Monitor labs and vital signs. Fall precautions and bed alarm. PT/OT evaluations ordered and pending Neurology consult, appreciate any recommendations. (2) Frequent falls Current Visit: Yes Status: Acute Assessment and plan: Patient reports history of falls 5 since day before admission. He reports bilateral weakness and use of walker at home. Plan as above. (3) Cirrhosis Current Visit: No Status: Chronic Assessment and plan: Chronic. Continue to monitor. Qualifiers: Hepatic cirrhosis type: other cirrhosis Qualified Code(s): K74.69 - Other cirrhosis of liver (4) CKD (chronic kidney disease) stage 3, GFR 30-59 ml/min Current Visit: Yes Status: Chronic Assessment and plan: Renal function is within normal limits. Continue to monitor and avoid nephrotoxins (5) Hyperkalemia Current Visit: Yes Status: Resolved (6) Rhabdomyolysis Current Visit: Yes Status: Acute Assessment and plan: CK 467 on admission. Patient received fluid boluses in the emergency department continue to monitor. Patient does report several falls prior to admission. Plan as above Qualifiers: Rhabdomyolysis type: traumatic Encounter type: initial encounter Qualified Code(s): T79.6XXA - Traumatic ischemia of muscle, initial encounter (7) HLD (hyperlipidemia) Current Visit: Yes Status: Chronic Assessment and plan: Chronic. Continue home medications. Qualifiers: Hyperlipidemia type: pure hypercholesterolemia Qualified Code(s): E78.00 - Pure hypercholesterolemia, unspecified; E78.0 - Pure hypercholesterolemia (8) HTN (hypertension) Current Visit: Yes Status: Chronic Assessment and plan: Chronic. Continue home medications. Qualifiers: Hypertension type: essential hypertension Qualified Code(s): I10 - Essential (primary) hypertension (9) DVT prophylaxis Current Visit: Yes Status: Acute Assessment and plan: Patient was initially started on heparin. Due to his chronic pancytopenia, I will stop it and order SCDs. - Time Spent With Patient less than 15 minutes - Subjective Interval history: Patient was seen and assessed 11:50 AM. He is in good spirits, he is alert, awake, oriented. He reports that he has not been able to walk since Thursday, 3 days. He says that he stayed home thinking that he would just get better. He denies headache, blurred vision, chest pain or abdominal pain, no nausea vomiting or diarrhea, no fever or chills. Explained plan of care to him, will do second head CT since he is unable to have MRI due to pacemaker. Will also consult nephrology for any of their recommendations. He is aware and agreeable. - Constitutional Vitals: Temp Pulse Resp BP Pulse Ox 98.2 F 72 16 158/95 94 06/27/17 15:24 06/27/17 15:24 06/27/17 15:24 06/27/17 15:24 06/27/17 15:24 General appearance: Present: cooperative, A&O X 3, pleasant, no acute distress, obese, answers questions appropriately - Head Head exam: Present: atraumatic, normal inspection, normocephalic - Eye Eye exam: Present: normal appearance, conjuntiva pink, sclera anicteric - Neck Neck exam general surgery: Present: normal inspection, supple, trachea midline. Absent: lymphadenopathy, tenderness - Respiratory Respiratory exam: Present: CTAB. Absent: accessory muscle use, rales, respiratory distress, rhonchi, wheezes - Cardiovascular Cardiovascular exam: Present: RRR, +S1, +S2. Absent: diastolic murmur, gallop, rubs, systolic murmur - GI/Abdominal GI/Abdominal exam: Present: normal bowel sounds, soft, no peritoneal signs. Absent: distended, hepatomegaly, tenderness - Extremities Exam Extremities exam: Present: normal capillary refill, normal inspection, warm, radial pulses palpable and symmetrical. Absent: calf tenderness, cyanotic, pedal edema, tenderness - Neurological Exam Neurological exam: Present: alert, CN II-XII intact, oriented X3. Absent: altered, motor sensory deficit, no focal deficits, strengths equal and symetr throughout, pronater drift, facial droop, speech deficit - Skin Skin exam: Present: dry, intact, normal color, warm. Absent: rash Internal Medicine: Result - Labs CBC & Chem 7: 06/27/17 03:30 06/27/17 03:30 Labs: Short CBC 06/27/17 Range/Units 03:30 WBC 4.0 L (4.3-11.1) K/mcL Hgb 10.8 L (12.9-16.9) g/dL Hct 34.9 L (37.5-50.1) % Plt Count 98 L (140-400) K/mcL Neutrophils # 2.6 (1.6-8.9) K/mcL BMP 06/27/17 03:30 Sodium 139 Potassium 4.4 Chloride 103 Carbon Dioxide 31 H BUN 19 Creatinine 1.12 Glucose 121 H Calcium 9.0 Cardiac Enzymes 06/26/17 06/27/17 Range/Units 21:33 03:30 Troponin I 0.01 0.01 (0-0.03) ng/mL Liver Function 06/27/17 Range/Units 03:30 Total Bilirubin 0.6 (0.2-1.2) mg/dL AST 25 (5-34) Units/L ALT 15 (0-55) Units/L Alkaline Phosphatase 103 (38-126) Units/L Albumin 3.3 L (3.5-5.0) g/dL - ABG Interpretation ABG results: PT/INR, D-dimer PT 11.8 Seconds (9.4-12.1) 06/26/17 15:07 Consult Discharge Plan - Plan Referrals: Niko Knight MD [Primary Care Provider] -
[2017-06-27] MEDS: tiZANidine 4 MG TABLET PO SCH (17:59)
[2017-06-27] MEDS: *HR* Promethazine 25 MG/ML VIAL IM PRN (18:01)
[2017-06-27] MEDS: Ondansetron 4 MG/2 ML VIAL IVP PRN (21:48)
[2017-06-27] MEDS: rOPINIRole 1 MG TABLET PO SCH (21:49)
[2017-06-27] MEDS: traZODone 50 MG TABLET PO SCH (21:50)
[2017-06-28] MEDS: Acetaminophen 325 MG TABLET PO PRN (01:27)
[2017-06-28] MEDS: *HR* Promethazine 25 MG/ML VIAL IM PRN ×3 (01:28→16:23)
[2017-06-28] MEDS: 0.9 % Sodium Chloride 1,000 ML IVC SCH ×3 (01:28→10:19)
[2017-06-28] MEDS: *HR* HYDROmorphone (PF) 1 MG/ML SYRINGE IVP PRN ×5 (01:53→20:31)
[2017-06-28 05:38] LABS: Alanine Aminotransferase 13 Units/L (0-55); Albumin 3.1 g/dL (3.5-5.0); Albumin/Globulin Ratio 0.8 (1.1-2.2); Alkaline Phosphatase 109 Units/L (38-126); Aspartate Amino Transferase 25 Units/L (5-34); BUN/Creatinine Ratio 14 (6-26); Bilirubin,Total 0.4 mg/dL (0.2-1.2); Blood Urea Nitrogen 18 mg/dL (8-26); Calcium 8.7 mg/dL (8.6-10.8); Carbon Dioxide 24 mEq/L (19-29); Chloride 107 mEq/L (98-109); Globulin 3.7 g/dL (2.4-3.5); Glucose 142 mg/dL (70-99); Osmolality,Calculated 288 (280-300); Potassium 5.1 mEq/L (3.5-4.5); Sodium 137 mEq/L (136-145); Total Protein 6.8 g/dL (6.0-8.3); eGFR For African Americans > 60 (> 60); eGFR For Non-African Americans 58 (> 60)
[2017-06-28 05:40] LABS: Basophils % 0.5 %; Hemoglobin 10.5 g/dL (12.9-16.9); Immature Granulocytes % 0.5 % (0-4); Monocytes # 0.3 K/mcL (0.0-1.3); Monocytes % 7.1 %
[2017-06-28 05:41] LABS: Eosinophils # 0.1 K/mcL (0.0-0.6); Eosinophils % 1.9 %; Hematocrit 33.2 % (37.5-50.1); Immature Platelets 5.6 % (1.1-6.1); Lymphocytes # 1.7 K/mcL (0.6-4.6); Lymphocytes % 41.3 %; Mean Corpuscular HGB Conc 31.6 g/dL (31.6-35.5); Mean Corpuscular Hemoglobin 30.2 pg (28.0-33.3); Mean Corpuscular Volume 95.4 fL (83.0-100.0); Mean Platelet Volume 11.7 fL (9.4-12.4); Neutrophils # 2.1 K/mcL (1.6-8.9); Red Blood Count 3.48 M/mcL (4.19-5.50); Red Cell Distribution Width 14.2 % (11.5-14.5); Segmented Neutrophils % 48.7 %
[2017-06-28 05:42] LABS: Platelet Count 82 K/mcL (140-400)
[2017-06-28] MEDS: Ondansetron 4 MG/2 ML VIAL IVP PRN ×2 (05:55→20:31)
[2017-06-28] MEDS: Gabapentin 300 MG CAPSULE PO SCH ×3 (08:50→20:32)
[2017-06-28] MEDS: Insulin LISPRO 300 UNITS/3 ML VIAL SQ SCH ×4 (08:50→20:46)
[2017-06-28] MEDS: Aspirin 81 MG TAB.CHEW PO SCH (08:50)
[2017-06-28 10:12] LABS: Creatine Kinase 251 Units/L (30-200)
--- NOTE | 2017-06-28 12:27 | Internal Med Progress Note ---
Date of Encounter: 06/28/17 Time of Encounter: 09:05 - Assessment and plan (1) Weakness Current Visit: Yes Status: Acute Assessment and plan: Patient has weakness in bilateral extremities. He reports onset approximately 3 days ago, he states that he is unable to bear weight on his legs, left appears to be weaker than right. He states he did not come to the emergency room because he thought he would get better. Patient with obvious weakness and decreased movement bilateral lower extremities on physical exam. History of CVA 3. He has no other focal neurological deficits. There is no facial droop, no pronator drift, no slurred speech. Dysphasia screen was ordered, patient passed successfully. Patient is unable to have MRI due to pacemaker. Head CT without contrast showed mild generalized atrophy normal for his age. There is no acute intracranial abnormality. Second head CT also negative for intracranial abnormality. Patient had GENESIS done, bilateral lower extremities normal. Patient has bounding bilateral pedal pulses. Patient had falls at home, pelvis x-ray is negative. C-spine CT negative, there is multi-level degenerative disc disease. Chest x-ray is negative. CT lumbar spine ordered, Solumedrol 60mg IVP x1 ordered. Neurology will see pt, discussed with Dr. Nazario. Continue telemetry. Monitor labs and vital signs. Fall precautions and bed alarm. PT/OT evaluations ordered and pending Neurology consult, appreciate any recommendations. (2) Frequent falls Current Visit: Yes Status: Acute Assessment and plan: Patient reports history of falls 5 since day before admission. He reports bilateral weakness and use of walker at home. Plan as above. (3) Cirrhosis Current Visit: No Status: Chronic Assessment and plan: Chronic. Continue to monitor. Cirrohsis is cause of pt's pancytopenia. Qualifiers: Hepatic cirrhosis type: other cirrhosis Qualified Code(s): K74.69 - Other cirrhosis of liver (4) CKD (chronic kidney disease) stage 3, GFR 30-59 ml/min Current Visit: Yes Status: Chronic Assessment and plan: Renal function is within normal limits. Sr Cr 1.26 today, GFR > 60. Continue to monitor and avoid nephrotoxins. (5) Hyperkalemia Current Visit: Yes Status: Resolved (6) Rhabdomyolysis Current Visit: Yes Status: Acute Assessment and plan: CK 467 on admission. 251 today. Patient received fluid boluses in the emergency department continue to monitor. He is receiving gentle IVF hydration currently. Patient does report several falls prior to admission. Plan as above Qualifiers: Rhabdomyolysis type: traumatic Encounter type: initial encounter Qualified Code(s): T79.6XXA - Traumatic ischemia of muscle, initial encounter (7) HLD (hyperlipidemia) Current Visit: Yes Status: Chronic Assessment and plan: Chronic. Continue home medications. Qualifiers: Hyperlipidemia type: pure hypercholesterolemia Qualified Code(s): E78.00 - Pure hypercholesterolemia, unspecified; E78.0 - Pure hypercholesterolemia (8) HTN (hypertension) Current Visit: Yes Status: Chronic Assessment and plan: Chronic. Continue home medications. Well controlled. Continue current medications. Qualifiers: Hypertension type: essential hypertension Qualified Code(s): I10 - Essential (primary) hypertension (9) DVT prophylaxis Current Visit: Yes Status: Acute Assessment and plan: Patient was initially started on heparin. Due to his chronic pancytopenia, I will stop it and order SCDs. - Time Spent With Patient less than 15 minutes - Subjective Interval history: Patient was seen and assessed 0905 AM. He is in good spirits, he is alert, awake, oriented. He states that he is still having BLE weakness and now reports pain. Neurology consult made, pt is agreeable. Pt denies fever, chills , abd pain, n/v/d, headache, loss of bowel or bladder control. Pt has no decreased sensation to BLE. - Constitutional Vitals: Temp Pulse Resp BP Pulse Ox 99.1 F 73 16 99/58 95 06/28/17 11:28 06/28/17 11:28 06/28/17 11:28 06/28/17 11:28 06/28/17 11:28 General appearance: Present: cooperative, A&O X 3, pleasant, no acute distress, obese, answers questions appropriately - Head Head exam: Present: atraumatic, normal inspection, normocephalic - Eye Eye exam: Present: conjuntiva pink, sclera anicteric - Neck Neck exam general surgery: Present: supple, trachea midline. Absent: lymphadenopathy - Respiratory Respiratory exam: Present: decreased breath sounds, CTAB. Absent: accessory muscle use, chest wall tenderness, rales, respiratory distress, rhonchi, wheezes - Cardiovascular Cardiovascular exam: Present: RRR, +S1, +S2. Absent: diastolic murmur, gallop, rubs, systolic murmur - GI/Abdominal GI/Abdominal exam: Present: normal bowel sounds, soft, no peritoneal signs. Absent: distended, hepatomegaly, tenderness - Extremities Exam Extremities exam: Present: normal capillary refill, warm, radial pulses palpable and symmetrical. Absent: calf tenderness, cyanotic, normal inspection , pedal edema, tenderness - Neurological Exam Neurological exam: Present: alert, oriented X3, no focal deficits. Absent: strengths equal and symetr throughout, facial droop, speech deficit - Skin Skin exam: Present: dry, intact, normal color, warm. Absent: rash Internal Medicine: Result - Labs CBC & Chem 7: 06/28/17 05:13 06/28/17 05:13 Labs: Short CBC 06/28/17 Range/Units 05:13 WBC 4.2 L (4.3-11.1) K/mcL Hgb 10.5 L (12.9-16.9) g/dL Hct 33.2 L (37.5-50.1) % Plt Count 82 L (140-400) K/mcL Neutrophils # 2.1 (1.6-8.9) K/mcL BMP 06/28/17 05:13 Sodium 137 Potassium 5.1 H Chloride 107 Carbon Dioxide 24 BUN 18 Creatinine 1.26 H Glucose 142 H Calcium 8.7 Liver Function 06/28/17 Range/Units 05:13 Total Bilirubin 0.4 (0.2-1.2) mg/dL AST 25 (5-34) Units/L ALT 13 (0-55) Units/L Alkaline Phosphatase 109 (38-126) Units/L Albumin 3.1 L (3.5-5.0) g/dL - ABG Interpretation ABG results: PT/INR, D-dimer PT 11.8 Seconds (9.4-12.1) 06/26/17 15:07 - Impressions Impressions Head CT 06/27/17 17:00 IMPRESSION: No acute intracranial abnormality. D/ / Tim Mcneil MD / iTm Mcneil MD Interpreting Provider: Tim Mcneil MD - VTE Documentation of Mechanical Device: Intermittent pneumatic compression device Consult Discharge Plan - Plan Referrals: Niko Knight MD [Primary Care Provider] -
[2017-06-28] MEDS ORDERED: methylPREDNISolone 125 MG/2 ML VIAL IVP ONE (12:34)
[2017-06-28] MEDS: tiZANidine 4 MG TABLET PO SCH (16:22)
--- NOTE | 2017-06-28 17:31 | Neurology - Consult Note ---
Date of Encounter: 06/28/17 Time of Encounter: 16:29 Assessment and Plan (1) Weakness of both lower extremities Current Visit: Yes Status: Acute This patient will noted to have significant pain and weakness in lower activities more on the left than on the right with a history of degenerative lumbar disease and surgery complaining of a lot of pain in his weakness is mostly related to the pain than anything else significant effort related component and his examination. No evidence of any cord compression on examination he already had a CT scan of his brain which was reported as negative no evidence of any stroke on history and exam CT of the lumbar spine showed, Alignment of the lumbar spine is unchanged since March.Anterolisthesis of L4 on L5 and retrolisthesis of L5 on S1 is unchanged. There has been a posterolateral fusion from L4-L5. The hardware is intact and well seated. There has been a left hemilaminectomy at L4. There is severe disc degeneration at L5-S1 with endplate sclerosis and vacuum disc phenomenon. No acute fracture or malalignment is identified. At this time his symptoms are more from his lumbar disease than anything else No history symptoms and exam findings to be consistent with other peripheral disorder like GBS. He already had a back surgery and at this time no change in his alignment or any problem with the hardware He may benefit from physical therapy and rehabilitation and pain management already on gabapentin steroids as well as muscle relaxers suggested to continue on it (2) History of CVA (cerebrovascular accident) Current Visit: Yes Status: Resolved (3) Chronic back pain Current Visit: No Status: Acute Qualifiers: Back pain location: low back pain Back pain laterality: bilateral Sciatica presence: with sciatica Sciatica laterality: sciatica laterality unspecified Qualified Code(s): M54.40 - Lumbago with sciatica, unspecified side; G89.29 - Other chronic pain; G89.29 - Other chronic pain (4) Frequent falls Current Visit: Yes Status: Acute History of Present Illness HPI: Mr. Grewal is a 62 year old male with medical hx of multiple strokes as well as cirrhosis of the liver (non-alcoholic), CHF, CAD, CVA x3 (last one in 2008), diabetes, GERD, HTN, NV (several years ago), chronic anemia, and thyroid disease presents from the ED with chief complaint of bilateral leg weakness and pain that began a few days ago and resulted in falls x5. Pt. is unsure if he blacked out or hit his head during these falls. Pt. also reports that he began having chest pressure while in the ED that he describes as constant, centralized pressure. Pt. reports he was admitted in late May for heart cath, echocardiogram, carotid Doppler imaging, and stress test d/t chest pain sx. Pt. reports weakness in lower extremities but more on the left than on the right side along with significant pain in his thigh area more on the left than on the right he denies much numbness also complaining of some back pain, denies recent illness, fever, chills, nausea, vomiting, abdominal pain, diarrhea , constipation, changes in vision, headache, unusual bleeding, dizziness, or lightheadedness. According to the patient he has a history of multiple stroke that has affected his memory also has a degenerative changes of his lumbar spine he has been using a walker at home for the past year or so also has multiple other medical condition and has been hospitalized several times Past Med Surg Social Fam HX - Past Medical History Medical history: cirrhosis, CHF, coronary artery disease, CVA, diabetes, GERD, hypertension, myocardial infarction, thyroid disease, other Psychiatric history: no psych history - Past Surgical History Surgical History: appendectomy, cholecystectomy, coronary bypass (CABG), orthopedic, other, pacemaker/AICD - Social History Smoking Status: Never smoker Smokeless Tobacco Status: No Alcohol use: none Drug use: none - Family History Father Race: Family Member Ethnicity: Non- Living Status: Cause of : NV Hx Family Cardiac Disorders: Yes (NV, Bypass) Brother Race: Family Member Ethnicity: Non- Living Status: Age at : 35 Cause of : NV Hx Family Cardiac Disorders: Yes (NV) Mother Race: Family Member Ethnicity: Non- Living Status: Hx Family Cardiac Disorders: No Medications and Allergies Levothyroxine [Synthroid] 50 mcg PO QAM 04/08/15 [History] Omeprazole [PriLOSEC] 40 mg PO BID 04/08/15 [History] Promethazine [Phenergan] 25 mg PO TID PRN 12/03/15 [History] Gabapentin [Neurontin] 900 mg PO TID 08/03/16 [History] Oxycodone HCl 10 mg PO BID 08/03/16 [History] Tizanidine HCl 4 mg PO QPM 08/03/16 [History] Aspirin 81 mg PO DAILY #30 tab.chew 08/06/16 [Rx] Atorvastatin [Lipitor] 40 mg PO HS 03/17/17 [History] Ropinirole HCl [Requip] 4 mg PO HS 05/01/17 [History] Trazodone HCl 100 - 200 mg PO HS 05/01/17 [History] DULoxetine [Cymbalta] 30 mg PO DAILY 06/10/17 [History] 3 Allergy/AdvReac Type Severity Reaction Status Date / Time morphine Allergy Intermediate Hives Verified 06/10/17 10:53 codeine Allergy Mild Itching Verified 06/10/17 10:53 Penicillins AdvReac Severe COMA Verified 06/10/17 10:53 nitroglycerin AdvReac Mild LOW BLOOD Verified 06/10/17 10:53 PRESSURE NITRATES Allergy Mild Itching Uncoded 06/10/17 10:53 NUBAIN Allergy Mild Itching Uncoded 06/10/17 10:53 All Systems: A 10-system review of systems was performed and is negative for pertinent findings except as documented above in the HPI. Physical Examination - Vital Signs Vital Signs: Initial Vital Signs Temp Pulse Resp BP Pulse Ox 98.2 F 71 16 147/87 99 06/26/17 14:38 06/26/17 14:38 06/26/17 14:38 06/26/17 14:38 06/26/17 14:38 - Constitutional General appearance: comfortable - Neurologic Sensorimotor examination: intact Motor examination - right side: 4/5: deltoids, biceps, triceps, wrist flexion, wrist extension, intelligence engineer, hip flexors, tibialis Anterior, quadriceps, toe extension (EHL), plantarflexion Motor examination - left side: 2/5: tibialis Anterior, toe extension (EHL), plantarflexion, 3/5: hip flexors, intelligence engineer, quadriceps, 4/5: deltoids, biceps, triceps, wrist flexion, wrist extension Detailed sensory examination: intact Reflexes: Biceps: 1+, Triceps: 1+, Brachioradialis: 0, Patella: 0, Achilles: 0 Mental Status Examination: awake, alert, oriented to person, oriented to place, oriented to time, follows commands appropriately, answers questions appropriately, follows simple commands, localizes noxious stimulation Cranial nerve examination: PERRL, EOMI, no facial asymmetry is present, no dysarthria (This patient who noted to have a significant pain in his lower extremities predominantly in the left thigh area but also complaining of pain in the right thigh with some decreased movement in the left lower extremity more than the right with evidence of mild foot drop on the left sensory examination was inconsistent at the same time the weakness is also inconsistent and effort related due to significant pain that began experiencing in his left leg.) Results - Laboratory Findings CBC and BMP: 06/28/17 05:13 06/28/17 05:13 Abnormal lab findings: Abnormal lab results WBC 4.2 K/mcL (4.3-11.1) L 06/28/17 05:13 RBC 3.48 M/mcL (4.19-5.50) L 06/28/17 05:13 Hgb 10.5 g/dL (12.9-16.9) L 06/28/17 05:13 Hct 33.2 % (37.5-50.1) L 06/28/17 05:13 Plt Count 82 K/mcL (140-400) L 06/28/17 05:13 Potassium 5.1 mEq/L (3.5-4.5) H 06/28/17 05:13 Creatinine 1.26 mg/dL (0.72-1.25) H 06/28/17 05:13 Est GFR (Non-Af Amer) 58 (> 60) L 06/28/17 05:13 Glucose 142 mg/dL (70-99) H 06/28/17 05:13 POC Glucose 176 (58-89) H 06/27/17 20:31 Hemoglobin A1c 5.7 % (-5.6) H 06/27/17 03:30 Creatine Kinase 251 Units/L (30-200) H 06/28/17 05:13 Albumin 3.1 g/dL (3.5-5.0) L 06/28/17 05:13 Globulin 3.7 g/dL (2.4-3.5) H 06/28/17 05:13 Albumin/Globulin Ratio 0.8 (1.1-2.2) L 06/28/17 05:13 Triglycerides 171 mg/dL (< 150) H 06/27/17 03:30 VLDL Cholesterol, Calc 34 mg/dL (< 31) H 06/27/17 03:30 TSH 5.364 mcIU/mL (0.350-4.840) H 06/27/17 03:30 Consult Discharge Plan - Plan Referrals: Niko Knight MD [Primary Care Provider] -
[2017-06-28] MEDS: rOPINIRole 1 MG TABLET PO SCH (20:31)
[2017-06-28] MEDS: traZODone 50 MG TABLET PO SCH (20:31)
[2017-06-29] MEDS: *HR* HYDROmorphone (PF) 1 MG/ML SYRINGE IVP PRN ×5 (00:24→18:58)
[2017-06-29] MEDS ORDERED: methylPREDNISolone 125 MG/2 ML VIAL IVP ONE (00:30)
--- NOTE | 2017-06-29 02:13 | Electrocardiograph Report ---
[place] [id number] Test Date: 2017-06-26 Pat Name: Ar Grewal Department: 104 Room: 3B48 Gender: M Nurse Transplant: JEANNETTE : 1955 Requested By: Bharat Castanon Order Number: [id number] Reading MD: Shayan Moseley MD Measurements Intervals [place] Rate: 69 P: 60 VT: 199 QRS: -16 QRSD: 144 T: 56 QT: 434 QTc: 453 Interpretive Statements SINUS RHYTHM RIGHT BUNDLE BRANCH BLOCK Electronically Signed On 06-29-2017 2:12:12 EST by Shayan Moseley MD
[2017-06-29] MEDS: Ondansetron 4 MG/2 ML VIAL IVP PRN ×3 (02:17→18:57)
[2017-06-29] MEDS: *HR* Promethazine 25 MG/ML VIAL IM PRN ×3 (04:37→21:35)
[2017-06-29 06:05] LABS: Hemoglobin 10.7 g/dL (12.9-16.9); Immature Granulocytes % 1.2 % (0-4); Lymphocytes # 0.6 K/mcL (0.6-4.6); Lymphocytes % 11.4 %; Mean Corpuscular HGB Conc 31.5 g/dL (31.6-35.5); Mean Corpuscular Hemoglobin 29.7 pg (28.0-33.3); Mean Corpuscular Volume 94.4 fL (83.0-100.0); Mean Platelet Volume 11.1 fL (9.4-12.4); Monocytes % 0.6 %; Neutrophils # 4.2 K/mcL (1.6-8.9); Nucleated Red Blood Cells 0.4 /100 WBC (0); Red Cell Distribution Width 14.4 % (11.5-14.5); Segmented Neutrophils % 86.8 %
[2017-06-29 06:06] LABS: Platelet Count 96 K/mcL (140-400)
[2017-06-29 06:18] LABS: Alanine Aminotransferase 17 Units/L (0-55); Albumin 3.3 g/dL (3.5-5.0); Albumin/Globulin Ratio 0.8 (1.1-2.2); Alkaline Phosphatase 111 Units/L (38-126); Aspartate Amino Transferase 22 Units/L (5-34); BUN/Creatinine Ratio 17 (6-26); Bilirubin,Total 0.5 mg/dL (0.2-1.2); Blood Urea Nitrogen 21 mg/dL (8-26); Carbon Dioxide 22 mEq/L (19-29); Chloride 105 mEq/L (98-109); Globulin 4.1 g/dL (2.4-3.5); Glucose 207 mg/dL (70-99); Osmolality,Calculated 291 (280-300); Potassium 4.6 mEq/L (3.5-4.5); Sodium 136 mEq/L (136-145); Total Protein 7.4 g/dL (6.0-8.3); eGFR For African Americans > 60 (> 60); eGFR For Non-African Americans 59 (> 60)
[2017-06-29] MEDS: Insulin LISPRO 300 UNITS/3 ML VIAL SQ SCH ×4 (08:45→21:34)
[2017-06-29] MEDS: Aspirin 81 MG TAB.CHEW PO SCH (08:46)
[2017-06-29] MEDS: Gabapentin 300 MG CAPSULE PO SCH ×3 (08:46→21:33)
--- NOTE | 2017-06-29 14:05 | Neurology Progress Note ---
Date of Encounter: 06/29/17 Time of Encounter: 08:35 Assessment and Plan (1) Weakness of both lower extremities Current Visit: Yes Status: Acute (2) History of CVA (cerebrovascular accident) Current Visit: Yes Status: Resolved (3) Chronic back pain Current Visit: No Status: Acute Qualifiers: Back pain location: low back pain Back pain laterality: bilateral Sciatica presence: with sciatica Sciatica laterality: bilateral sciatica Qualified Code(s): M54.42 - Lumbago with sciatica, left side; M54.41 - Lumbago with sciatica, right side; M54.41 - Lumbago with sciatica, right side; G89.29 - Other chronic pain; G89.29 - Other chronic pain (4) Frequent falls Current Visit: Yes Status: Acute (5) Lumbar back pain with radiculopathy affecting left lower extremity Current Visit: Yes Status: Acute This patient's symptoms seems to be predominantly more of lumbar radiculopathy affecting lower activities he did have weakness as well as a left foot drop which I believe present for a long time particularly after his back surgery. No evidence of any acute stroke no evidence of acute finding on the lumbar CT scan, would probably benefit from short-term rehabilitation as well as pain management option he can discontinue his corticosteroids that could be tapered off as an oral now continue him on other medication that he has been taking Subjective Interval history: Patient is still complaining of lower activity weakness and pain predominantly pain more than the weakness he has a weakness of his Lower extremities which I suspected his old is also some weakness on the right side but not as bad CT of the lumbar spine shows multilevel degenerative changes along with postoperative changes but no acute findings Objective - Constitutional Vitals: Temp Pulse Resp BP Pulse Ox 98 F 98 18 164/87 95 06/29/17 11:26 06/29/17 11:26 06/29/17 11:26 06/29/17 11:26 06/29/17 11:26 - Neurological Exam Sensorimotor examination: Present: intact Motor examination - left side: 2/5: tibialis Anterior, toe extension (EHL), plantarflexion, 3/5: hip flexors, ice skating teacher, quadriceps, 4/5: deltoids, biceps, triceps, wrist flexion, wrist extension Sensation intact: Present: intact Mental Status Examination: Present: awake, alert, oriented to person, oriented to place, oriented to time, follows commands appropriately, answers questions appropriately, follows simple commands, localizes noxious stimulation Cranial nerve examination: Present: PERRL, EOMI, no facial asymmetry is present , no dysarthria (This patient who noted to have a significant pain in his lower extremities predominantly in the left thigh area but also complaining of pain in the right thigh with some decreased movement in the left lower extremity more than the right with evidence of mild foot drop on the left sensory examination was inconsistent at the same time the weakness is also inconsistent and effort related due to significant pain that began experiencing in his left leg.) - VTE Documentation of Mechanical Device: Intermittent pneumatic compression device Results - Laboratory Findings CBC and BMP: 06/29/17 05:20 06/29/17 05:20 Abnormal lab findings: Abnormal lab results RBC 3.60 M/mcL (4.19-5.50) L 06/29/17 05:20 Hgb 10.7 g/dL (12.9-16.9) L 06/29/17 05:20 Hct 34.0 % (37.5-50.1) L 06/29/17 05:20 MCHC 31.5 g/dL (31.6-35.5) L 06/29/17 05:20 Plt Count 96 K/mcL (140-400) L 06/29/17 05:20 Nucleated RBCs/100 WBC 0.4 /100 WBC (0) H 06/29/17 05:20 Potassium 4.6 mEq/L (3.5-4.5) H 06/29/17 05:20 Est GFR (Non-Af Amer) 59 (> 60) L 06/29/17 05:20 Glucose 207 mg/dL (70-99) H 06/29/17 05:20 POC Glucose 243 (58-89) H 06/28/17 20:40 Hemoglobin A1c 5.7 % (-5.6) H 06/27/17 03:30 Creatine Kinase 251 Units/L (30-200) H 06/28/17 05:13 Myoglobin 89 ng/mL (28-72) H 06/27/17 03:30 Albumin 3.3 g/dL (3.5-5.0) L 06/29/17 05:20 Globulin 4.1 g/dL (2.4-3.5) H 06/29/17 05:20 Albumin/Globulin Ratio 0.8 (1.1-2.2) L 06/29/17 05:20 Triglycerides 171 mg/dL (< 150) H 06/27/17 03:30 VLDL Cholesterol, Calc 34 mg/dL (< 31) H 06/27/17 03:30 TSH 5.364 mcIU/mL (0.350-4.840) H 06/27/17 03:30 Consult Discharge Plan - Plan Referrals: Niko Knight MD [Primary Care Provider] -
[2017-06-29] MEDS: tiZANidine 4 MG TABLET PO SCH (18:57)
[2017-06-29] MEDS: 0.9 % Sodium Chloride 1,000 ML IVC SCH ×2 (18:58→21:51)
--- NOTE | 2017-06-29 19:06 | Internal Med Progress Note ---
Date of Encounter: 06/29/17 Time of Encounter: 10:10 - Assessment and plan (1) Weakness Current Visit: Yes Status: Acute Assessment and plan: Patient has weakness in bilateral extremities. He reports onset approximately 3 days ago, he states that he is unable to bear weight on his legs, left appears to be weaker than right. He states he did not come to the emergency room because he thought he would get better. Patient with obvious weakness and decreased movement bilateral lower extremities on physical exam. History of CVA 3. He has no other focal neurological deficits. There is no facial droop, no pronator drift, no slurred speech. Dysphasia screen was ordered, patient passed successfully. Patient is unable to have MRI due to pacemaker. Head CT without contrast showed mild generalized atrophy normal for his age. There is no acute intracranial abnormality. Second head CT also negative for intracranial abnormality. Patient had GENESIS done, bilateral lower extremities normal. Patient has bounding bilateral pedal pulses. Patient had falls at home, pelvis x-ray is negative. C-spine CT negative, there is multi-level degenerative disc disease. Chest x-ray is negative. CT lumbar spine shows continued chronic issues. Solumedrol 60mg IVP x1 ordered. Neurology has seen patient, suggest patient would benefit from short-term rehabilitation as well as pain management. I spoke with Dr. Jones today, he does not have any new plan to offer at this time. He was more than willing to follow along, however he does not have any new suggestion that would offer much improvement to patient's pain or weakness. We did discuss sending patient to [facility] for further evaluation of L5-S1 , possible surgical intervention. I spoke with patient about this tonight, he states he would like to speak to his and let us know in the morning. Continue telemetry. Monitor labs and vital signs. Fall precautions and bed alarm. PT/OT evaluations ordered and pending Neurology consult, appreciate any recommendations. (2) Frequent falls Current Visit: Yes Status: Acute Assessment and plan: Patient reports history of falls 5 since day before admission. He reports bilateral weakness and use of walker at home. Plan as above. Suggested transfer to [facility] for further evaluation of L5-S1 and possible surgical intervention., patient will let us know in the morning. (3) Cirrhosis Current Visit: No Status: Chronic Assessment and plan: Chronic. Continue to monitor. Cirrohsis is cause of pt's pancytopenia. Qualifiers: Hepatic cirrhosis type: other cirrhosis Qualified Code(s): K74.69 - Other cirrhosis of liver (4) CKD (chronic kidney disease) stage 3, GFR 30-59 ml/min Current Visit: Yes Status: Chronic Assessment and plan: Renal function is within normal limits. Sr Cr 1.23 today, GFR > 60. Continue to monitor and avoid nephrotoxins. (5) Hyperkalemia Current Visit: Yes Status: Resolved Assessment and plan: Continues to trend down. 4.6 today. Continue to monitor (6) Rhabdomyolysis Current Visit: Yes Status: Resolved Assessment and plan: CK 467 on admission. 251 today. Patient received fluid boluses in the emergency department continue to monitor. He is receiving gentle IVF hydration currently. Patient does report several falls prior to admission. Plan as above Qualifiers: Rhabdomyolysis type: traumatic Encounter type: initial encounter Qualified Code(s): T79.6XXA - Traumatic ischemia of muscle, initial encounter (7) HLD (hyperlipidemia) Current Visit: Yes Status: Chronic Assessment and plan: Chronic. Continue home medications. Qualifiers: Hyperlipidemia type: pure hypercholesterolemia Qualified Code(s): E78.00 - Pure hypercholesterolemia, unspecified; E78.0 - Pure hypercholesterolemia (8) HTN (hypertension) Current Visit: Yes Status: Chronic Assessment and plan: Chronic. Continue home medications. Well controlled. Continue current medications. Qualifiers: Hypertension type: essential hypertension Qualified Code(s): I10 - Essential (primary) hypertension (9) DVT prophylaxis Current Visit: Yes Status: Acute Assessment and plan: Patient was initially started on heparin. Due to his chronic pancytopenia, I will stop it and order SCDs. - Time Spent With Patient less than 15 minutes - Subjective Interval history: Patient was seen and assessed 1010 AM. He is in good spirits, he is alert, awake, oriented. He states that he is still having BLE weakness and now reports pain. Patient states he is unable to bear weight. He is able to minimally move his legs off the bed. Pt denies fever, chills, abd pain, n/v/d, headache, loss of bowel or bladder control. Pt has no decreased sensation to BLE. - Constitutional Vitals: Temp Pulse Resp BP Pulse Ox 98.7 F 96 18 159/90 96 06/29/17 18:54 06/29/17 18:54 06/29/17 18:54 06/29/17 18:54 06/29/17 18:54 General appearance: Present: cooperative, A&O X 3, pleasant, no acute distress, obese, answers questions appropriately - Head Head exam: Present: atraumatic, normal inspection, normocephalic - Eye Eye exam: Present: normal appearance, conjuntiva pink, sclera anicteric - Neck Neck exam general surgery: Present: normal inspection, supple, trachea midline. Absent: lymphadenopathy, tenderness - Respiratory Respiratory exam: Present: CTAB. Absent: accessory muscle use, prolonged expiratory phase, rales, rhonchi, wheezes - Cardiovascular Cardiovascular exam: Present: RRR, +S1, +S2. Absent: diastolic murmur, gallop, rubs, systolic murmur - GI/Abdominal GI/Abdominal exam: Present: normal bowel sounds, soft. Absent: distended, hepatomegaly, tenderness - Extremities Exam Extremities exam: Present: warm, radial pulses palpable and symmetrical. Absent : calf tenderness, cyanotic, normal inspection, pedal edema, tenderness - Neurological Exam Neurological exam: Present: alert, motor sensory deficit, oriented X3, no focal deficits. Absent: altered, facial droop, speech deficit - Skin Skin exam: Present: dry, intact, normal color, warm. Absent: rash Internal Medicine: Result - Labs CBC & Chem 7: 06/29/17 05:20 06/29/17 05:20 Labs: Short CBC 06/29/17 Range/Units 05:20 WBC 4.8 (4.3-11.1) K/mcL Hgb 10.7 L (12.9-16.9) g/dL Hct 34.0 L (37.5-50.1) % Plt Count 96 L (140-400) K/mcL Neutrophils # 4.2 (1.6-8.9) K/mcL BMP 06/29/17 05:20 Sodium 136 Potassium 4.6 H Chloride 105 Carbon Dioxide 22 BUN 21 Creatinine 1.23 Glucose 207 H Calcium 9.0 Liver Function 06/29/17 Range/Units 05:20 Total Bilirubin 0.5 (0.2-1.2) mg/dL AST 22 (5-34) Units/L ALT 17 (0-55) Units/L Alkaline Phosphatase 111 (38-126) Units/L Albumin 3.3 L (3.5-5.0) g/dL - ABG Interpretation ABG results: PT/INR, D-dimer PT 11.8 Seconds (9.4-12.1) 06/26/17 15:07 - VTE Documentation of Mechanical Device: Intermittent pneumatic compression device Consult Discharge Plan - Plan Referrals: Niko Knight MD [Primary Care Provider] -
[2017-06-29] MEDS: rOPINIRole 1 MG TABLET PO SCH (21:32)
[2017-06-29] MEDS: traZODone 50 MG TABLET PO SCH (21:33)
[2017-06-29] MEDS: Acetaminophen 325 MG TABLET PO PRN (21:50)
[2017-06-30] MEDS: *HR* HYDROmorphone (PF) 1 MG/ML SYRINGE IVP PRN ×5 (00:12→18:33)
[2017-06-30] MEDS: Ondansetron 4 MG/2 ML VIAL IVP PRN ×3 (04:43→18:28)
[2017-06-30 05:17] LABS: Basophils % 0.2 %; Eosinophils % 0.7 %; Hematocrit 31.1 % (37.5-50.1); Hemoglobin 9.7 g/dL (12.9-16.9); Immature Granulocytes % 0.4 % (0-4); Lymphocytes # 1.2 K/mcL (0.6-4.6); Lymphocytes % 27.4 %; Mean Corpuscular HGB Conc 31.2 g/dL (31.6-35.5); Mean Corpuscular Volume 96.3 fL (83.0-100.0); Mean Platelet Volume 11.3 fL (9.4-12.4); Monocytes # 0.2 K/mcL (0.0-1.3); Monocytes % 5.1 %; Red Blood Count 3.23 M/mcL (4.19-5.50); Red Cell Distribution Width 14.6 % (11.5-14.5); Segmented Neutrophils % 66.2 %
[2017-06-30 05:28] LABS: Platelet Count 87 K/mcL (140-400)
[2017-06-30 05:48] LABS: BUN/Creatinine Ratio 19 (6-26); Blood Urea Nitrogen 22 mg/dL (8-26); Calcium 8.6 mg/dL (8.6-10.8); Carbon Dioxide 18 mEq/L (19-29); Chloride 110 mEq/L (98-109); Glucose 135 mg/dL (70-99); Osmolality,Calculated 291 (280-300); Potassium 4.5 mEq/L (3.5-4.5); Sodium 138 mEq/L (136-145); eGFR For African Americans > 60 (> 60); eGFR For Non-African Americans > 60 (> 60)
[2017-06-30] MEDS ORDERED: MOM Conc 10 ML UD.LIQ PO PRN (05:55)
[2017-06-30] MEDS: Gabapentin 300 MG CAPSULE PO SCH ×3 (09:00→21:40)
[2017-06-30] MEDS: Aspirin 81 MG TAB.CHEW PO SCH (09:00)
[2017-06-30] MEDS: Insulin LISPRO 300 UNITS/3 ML VIAL SQ SCH ×4 (09:02→21:41)
--- NOTE | 2017-06-30 09:08 | Neurology Progress Note ---
Date of Encounter: 06/30/17 Time of Encounter: 07:25 Assessment and Plan (1) Weakness of both lower extremities Current Visit: Yes Status: Acute Patient has not shown any improvement with the steroids suggested to discontinue as it may cause more side effects than any benefit continuing physical therapy Primary team has talked to him about [facility] and possible surgical intervention I agree with that plan (2) History of CVA (cerebrovascular accident) Current Visit: Yes Status: Resolved (3) Chronic back pain Current Visit: No Status: Acute Qualifiers: Back pain location: low back pain Back pain laterality: bilateral Sciatica presence: with sciatica Sciatica laterality: bilateral sciatica Qualified Code(s): M54.42 - Lumbago with sciatica, left side; M54.41 - Lumbago with sciatica, right side; M54.41 - Lumbago with sciatica, right side; G89.29 - Other chronic pain; G89.29 - Other chronic pain (4) Frequent falls Current Visit: Yes Status: Acute (5) Lumbar back pain with radiculopathy affecting left lower extremity Current Visit: Yes Status: Acute Subjective Interval history: Patient is still complaining of lower activity weakness and pain predominantly pain more than the weakness he has a weakness of his Lower extremities which I suspected his old is also some weakness on the right side but not as bad CT of the lumbar spine shows multilevel degenerative changes along with postoperative changes but no acute findings remains weak in no significant change in overall is of lower extremities not able to bear weight and get up and walk by himself pain services has been consulted Objective - Constitutional Vitals: Temp Pulse Resp BP Pulse Ox 98.0 F 73 15 155/96 96 06/30/17 07:23 06/30/17 07:23 06/30/17 07:23 06/30/17 07:23 06/30/17 07:23 - Neurological Exam Sensorimotor examination: Present: intact Motor examination - left side: 2/5: tibialis Anterior, toe extension (EHL), plantarflexion, 3/5: hip flexors, pot feeder, quadriceps, 4/5: deltoids, biceps, triceps, wrist flexion, wrist extension Sensation intact: Present: intact Mental Status Examination: Present: awake, alert, oriented to person, oriented to place, oriented to time, follows commands appropriately, answers questions appropriately, follows simple commands, localizes noxious stimulation Cranial nerve examination: Present: PERRL, EOMI, no facial asymmetry is present , no dysarthria (This patient who noted to have a significant pain in his lower extremities predominantly in the left thigh area but also complaining of pain in the right thigh with some decreased movement in the left lower extremity more than the right with evidence of mild foot drop on the left sensory examination was inconsistent at the same time the weakness is also inconsistent and effort related due to significant pain that began experiencing in his left leg.) - VTE Documentation of Mechanical Device: Intermittent pneumatic compression device Results - Laboratory Findings CBC and BMP: 06/30/17 03:54 06/30/17 03:54 Abnormal lab findings: Abnormal lab results RBC 3.23 M/mcL (4.19-5.50) L 06/30/17 03:54 Hgb 9.7 g/dL (12.9-16.9) L 06/30/17 03:54 Hct 31.1 % (37.5-50.1) L 06/30/17 03:54 MCHC 31.2 g/dL (31.6-35.5) L 06/30/17 03:54 RDW 14.6 % (11.5-14.5) H 06/30/17 03:54 Plt Count 87 K/mcL (140-400) L 06/30/17 03:54 Nucleated RBCs/100 WBC 0.4 /100 WBC (0) H 06/29/17 05:20 Chloride 110 mEq/L (98-109) H 06/30/17 03:54 Carbon Dioxide 18 mEq/L (19-29) L 06/30/17 03:54 Glucose 135 mg/dL (70-99) H 06/30/17 03:54 POC Glucose 146 (58-89) H 06/30/17 07:24 Hemoglobin A1c 5.7 % (-5.6) H 06/27/17 03:30 Creatine Kinase 251 Units/L (30-200) H 06/28/17 05:13 Myoglobin 89 ng/mL (28-72) H 06/27/17 03:30 Albumin 3.3 g/dL (3.5-5.0) L 06/29/17 05:20 Globulin 4.1 g/dL (2.4-3.5) H 06/29/17 05:20 Albumin/Globulin Ratio 0.8 (1.1-2.2) L 06/29/17 05:20 Triglycerides 171 mg/dL (< 150) H 06/27/17 03:30 VLDL Cholesterol, Calc 34 mg/dL (< 31) H 06/27/17 03:30 TSH 5.364 mcIU/mL (0.350-4.840) H 06/27/17 03:30 Consult Discharge Plan - Plan Referrals: Niko Knight MD [Primary Care Provider] -
--- NOTE | 2017-06-30 12:15 | Internal Med Progress Note ---
Date of Encounter: 06/30/17 Time of Encounter: 12:13 - Assessment and plan (1) Weakness Current Visit: Yes Status: Acute Assessment and plan: Patient with obvious weakness and decreased movement bilateral lower extremities on physical exam. No urinary or bowel retention or incontinence History of CVA 3. He has no other focal neurological deficits. There is no facial droop, no pronator drift, no slurred speech. Dysphasia screen was ordered, patient passed successfully. Patient is unable to have MRI due to pacemaker. Head CT without contrast showed mild generalized atrophy normal for his age. There is no acute intracranial abnormality. Second head CT also negative for intracranial abnormality. Patient had GENESIS done, bilateral lower extremities normal. Patient has bounding bilateral pedal pulses. Patient had falls at home, pelvis x-ray is negative. C-spine CT negative, there is multi-level degenerative disc disease. Chest x-ray is negative. CT lumbar spine shows continued chronic issues. Solumedrol 60mg IVP x1 ordered. Neurology has seen patient, suggest patient would benefit from short-term rehabilitation as well as pain management. [facility] stated to see patient as out-patient , no indication for in-patient admission, we will schedule an appointment prior to discharge Fall precautions PT recommends SNF, SW is on board (2) Cirrhosis Current Visit: Yes Status: Chronic Assessment and plan: Chronic. Continue to monitor. Cirrohsis is cause of pt's pancytopenia. 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 [facility] use Chronic kidney disease stage: stage 3 (moderate) Qualified Code(s): E11.22 - Type 2 diabetes mellitus with diabetic chronic kidney disease; N18.3 - Chronic kidney disease, stage 3 (moderate); N18.3 - Chronic kidney disease, stage 3 (moderate) (4) Hyperlipemia Current Visit: Yes Status: Chronic Assessment and plan: Chronic, stable Qualifiers: Hyperlipidemia type: unspecified Qualified Code(s): E78.5 - Hyperlipidemia , unspecified (5) Diastolic CHF Current Visit: Yes Status: Chronic Assessment and plan: Chronic, stable, euvolemic, continue current meds Qualifiers: Congestive heart failure chronicity: chronic Qualified Code(s): I50.32 - Chronic diastolic (congestive) heart failure (6) Pancytopenia Current Visit: Yes Status: Chronic Assessment and plan: Chronic, stable, due to cirrhosis (7) CAD (coronary artery disease) Current Visit: Yes Status: Chronic Assessment and plan: s/p AICD, with CHF, no chest pain Continue current meds Qualifiers: Coronary Disease-Associated Artery/Lesion type: unspecified vessel or lesion type [place] vs. transplanted heart: [place] heart Associated angina: with unspecified angina Qualified Code(s): I25.119 - Atherosclerotic heart disease of [place] coronary artery with unspecified angina pectoris (8) CKD (chronic kidney disease) stage 3, GFR 30-59 ml/min Current Visit: Yes Status: Chronic Assessment and plan: Renal function is stable and at baseline Continue to monitor and avoid nephrotoxins. (9) Rhabdomyolysis Current Visit: Yes Status: Resolved Assessment and plan: Resolved, CK maxed at 467, downtrending, no longer following Qualifiers: Rhabdomyolysis type: traumatic Encounter type: initial encounter Qualified Code(s): T79.6XXA - Traumatic ischemia of muscle, initial encounter (10) Frequent falls Current Visit: Yes Status: Acute Assessment and plan: As in weakness For SNF placement (11) HLD (hyperlipidemia) Current Visit: Yes Status: Chronic Assessment and plan: Chronic. Continue home medications. Qualifiers: Hyperlipidemia type: pure hypercholesterolemia Qualified Code(s): E78.00 - Pure hypercholesterolemia, unspecified; E78.0 - Pure hypercholesterolemia (12) HTN (hypertension) Current Visit: Yes Status: Chronic Assessment and plan: Chronic. Continue home medications. Well controlled. Continue current medications. Qualifiers: Hypertension type: essential hypertension Qualified Code(s): I10 - Essential (primary) hypertension - Subjective Interval history: Seen and evaluated at bedside No new complains Discussed patient with [facility] spine surgery, who recommended out-patient visit for patient Patient informed, agree with rehab, then back surgery clinic at [facility], will arrange appointment He is otherwise clinically stable - Constitutional Vitals: Temp Pulse Resp BP Pulse Ox 98.4 F 52 15 110/59 96 06/30/17 11:28 06/30/17 11:28 06/30/17 11:28 06/30/17 11:28 06/30/17 11:28 General appearance: Present: cooperative, A&O X 3, pleasant, no acute distress, obese, answers questions appropriately - Head Head exam: Present: atraumatic, normocephalic - Eye Eye exam: Present: PERRL, conjuntiva pink, sclera anicteric Pupils: Present: PERRL - Neck Neck exam general surgery: Present: supple, trachea midline. Absent: lymphadenopathy - Respiratory Respiratory exam: Present: CTAB. Absent: accessory muscle use, rales, rhonchi, wheezes - Cardiovascular Cardiovascular exam: Present: RRR, +S1, +S2. Absent: diastolic murmur, gallop, rubs, systolic murmur - GI/Abdominal GI/Abdominal exam: Present: normal bowel sounds, soft, no peritoneal signs. Absent: distended, tenderness - Extremities Exam Extremities exam: Present: warm, radial pulses palpable and symmetrical. Absent : calf tenderness, cyanotic, pedal edema - Neurological Exam Neurological exam: Present: alert, CN II-XII intact, oriented X3. Absent: strengths equal and symetr throughout, pronater drift, facial droop, speech deficit Additional comments: Bilat LE weakness, power 3/5 L, power on LLE 4/5. - Skin Skin exam: Present: dry, intact Internal Medicine: Result - Labs CBC & Chem 7: 06/30/17 03:54 06/30/17 03:54 Labs: Short CBC 06/30/17 Range/Units 03:54 WBC 4.5 (4.3-11.1) K/mcL Hgb 9.7 L (12.9-16.9) g/dL Hct 31.1 L (37.5-50.1) % Plt Count 87 L (140-400) K/mcL Neutrophils # 3.0 (1.6-8.9) K/mcL BMP 06/30/17 03:54 Sodium 138 Potassium 4.5 Chloride 110 H Carbon Dioxide 18 L BUN 22 Creatinine 1.17 Glucose 135 H Calcium 8.6 - ABG Interpretation ABG results: PT/INR, D-dimer PT 11.8 Seconds (9.4-12.1) 06/26/17 15:07 - VTE Documentation of Mechanical Device: Intermittent pneumatic compression device Consult Discharge Plan - Plan Referrals: Niko Knight MD [Primary Care Provider] -
[2017-06-30] MEDS: tiZANidine 4 MG TABLET PO SCH (17:21)
[2017-06-30] MEDS: traZODone 50 MG TABLET PO SCH (21:40)
[2017-06-30] MEDS: rOPINIRole 1 MG TABLET PO SCH (21:40)
[2017-07-01] MEDS: *HR* HYDROmorphone (PF) 1 MG/ML SYRINGE IVP PRN ×5 (00:08→22:10)
[2017-07-01] MEDS: Gabapentin 300 MG CAPSULE PO SCH ×3 (08:39→22:09)
[2017-07-01] MEDS: Aspirin 81 MG TAB.CHEW PO SCH (08:39)
[2017-07-01] MEDS: Insulin LISPRO 300 UNITS/3 ML VIAL SQ SCH ×4 (08:40→22:10)
[2017-07-01] MEDS: Ondansetron 4 MG/2 ML VIAL IVP PRN ×2 (08:41→16:26)
--- NOTE | 2017-07-01 11:26 | Internal Med Progress Note ---
Date of Encounter: 07/01/17 Time of Encounter: 11:21 - Assessment and plan (1) Weakness Current Visit: Yes Status: Acute Assessment and plan: Patient with obvious weakness and decreased movement bilateral lower extremities on physical exam. No urinary or bowel retention or incontinence History of CVA 3. He has no other focal neurological deficits. There is no facial droop, no pronator drift, no slurred speech. Dysphasia screen was ordered, patient passed successfully. Patient is unable to have MRI due to pacemaker. Head CT without contrast showed mild generalized atrophy normal for his age. There is no acute intracranial abnormality. Second head CT also negative for intracranial abnormality. Patient had GENESIS done, bilateral lower extremities normal. Patient has bounding bilateral pedal pulses. Patient had falls at home, pelvis x-ray is negative. C-spine CT negative, there is multi-level degenerative disc disease. Chest x-ray is negative. CT lumbar spine shows continued chronic issues. Solumedrol 60mg IVP x1 ordered. Neurology has seen patient, suggest patient would benefit from short-term rehabilitation as well as pain management. [facility] stated to see patient as out-patient , no indication for in-patient admission, we will schedule an appointment prior to discharge Fall precautions PT recommends SNF, SW is on board (2) Cirrhosis Current Visit: Yes Status: Chronic Assessment and plan: Chronic. Continue to monitor. Cirrohsis is cause of pt's pancytopenia. 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: without [facility] use Chronic kidney disease stage: stage 3 (moderate) Qualified Code(s): E11.22 - Type 2 diabetes mellitus with diabetic chronic kidney disease; N18.3 - Chronic kidney disease, stage 3 (moderate); N18.3 - Chronic kidney disease, stage 3 (moderate) (4) Hyperlipemia Current Visit: Yes Status: Chronic Assessment and plan: Chronic, stable Qualifiers: Hyperlipidemia type: unspecified Qualified Code(s): E78.5 - Hyperlipidemia , unspecified (5) Diastolic CHF Current Visit: Yes Status: Chronic Assessment and plan: Chronic, stable, euvolemic, continue current meds Qualifiers: Congestive heart failure chronicity: chronic Qualified Code(s): I50.32 - Chronic diastolic (congestive) heart failure (6) Pancytopenia Current Visit: Yes Status: Chronic Assessment and plan: Chronic, stable, due to cirrhosis (7) CAD (coronary artery disease) Current Visit: Yes Status: Chronic Assessment and plan: s/p AICD, with CHF, no chest pain Continue current meds Qualifiers: Coronary Disease-Associated Artery/Lesion type: unspecified vessel or lesion type [place] vs. transplanted heart: [place] heart Associated angina: with unspecified angina Qualified Code(s): I25.119 - Atherosclerotic heart disease of [place] coronary artery with unspecified angina pectoris (8) CKD (chronic kidney disease) stage 3, GFR 30-59 ml/min Current Visit: Yes Status: Chronic Assessment and plan: Renal function is stable and at baseline Continue to monitor and avoid nephrotoxins. (9) Rhabdomyolysis Current Visit: Yes Status: Resolved Assessment and plan: Resolved, CK maxed at 467, downtrending, no longer following Qualifiers: Rhabdomyolysis type: traumatic Encounter type: initial encounter Qualified Code(s): T79.6XXA - Traumatic ischemia of muscle, initial encounter (10) Frequent falls Current Visit: Yes Status: Acute Assessment and plan: As in weakness For SNF placement (11) HLD (hyperlipidemia) Current Visit: Yes Status: Chronic Assessment and plan: Chronic. Continue home medications. Qualifiers: Hyperlipidemia type: pure hypercholesterolemia Qualified Code(s): E78.00 - Pure hypercholesterolemia, unspecified; E78.0 - Pure hypercholesterolemia (12) HTN (hypertension) Current Visit: Yes Status: Chronic Assessment and plan: Chronic. Continue home medications. Well controlled. Continue current medications. Qualifiers: Hypertension type: essential hypertension Qualified Code(s): I10 - Essential (primary) hypertension - Subjective Interval history: Seen and evaluated at bedside No new complains Discussed patient with [facility] spine surgery 06/30/17, who recommended out-patient visit for patient Patient informed, agree with rehab, then back surgery clinic at [facility], will arrange appointment He is otherwise clinically stable and awaiting placement to ECF per PTOT recommendations - Constitutional Vitals: Temp Pulse Resp BP Pulse Ox 97.8 F 76 18 150/82 97 07/01/17 07:43 07/01/17 07:43 07/01/17 07:43 07/01/17 07:43 07/01/17 07:43 General appearance: Present: cooperative, A&O X 3, pleasant, no acute distress, obese, answers questions appropriately - Head Head exam: Present: atraumatic, normocephalic - Eye Eye exam: Present: PERRL, conjuntiva pink, sclera anicteric Pupils: Present: PERRL - Neck Neck exam general surgery: Present: supple, trachea midline. Absent: lymphadenopathy - Respiratory Respiratory exam: Present: CTAB. Absent: accessory muscle use, rales, rhonchi, wheezes - Cardiovascular Cardiovascular exam: Present: RRR, +S1, +S2. Absent: diastolic murmur, gallop, rubs, systolic murmur - GI/Abdominal GI/Abdominal exam: Present: normal bowel sounds, soft, no peritoneal signs. Absent: distended, tenderness - Extremities Exam Additional comments: Bilat LE weakness, power 3/5 L, power on LLE 4/5. Multiple healed skin lesions - Neurological Exam Neurological exam: Present: alert, CN II-XII intact, oriented X3, no focal deficits. Absent: strengths equal and symetr throughout, pronater drift, facial droop, speech deficit - Skin Skin exam: Present: dry, intact Internal Medicine: Result - Labs CBC & Chem 7: 06/30/17 03:54 06/30/17 03:54 - ABG Interpretation ABG results: PT/INR, D-dimer PT 11.8 Seconds (9.4-12.1) 06/26/17 15:07 - VTE Documentation of Mechanical Device: Intermittent pneumatic compression device Consult Discharge Plan - Plan Referrals: Niko Knight MD [Primary Care Provider] -
[2017-07-01] MEDS: tiZANidine 4 MG TABLET PO SCH (17:33)
[2017-07-01] MEDS: rOPINIRole 1 MG TABLET PO SCH (22:09)
[2017-07-01] MEDS: traZODone 50 MG TABLET PO SCH (22:09)
[2017-07-02] MEDS: Ondansetron 4 MG/2 ML VIAL IVP PRN ×2 (01:50→09:18)
[2017-07-02] MEDS: Acetaminophen 325 MG TABLET PO PRN (01:50)
[2017-07-02] MEDS: *HR* HYDROmorphone (PF) 1 MG/ML SYRINGE IVP PRN (04:07)
[2017-07-02] MEDS: Insulin LISPRO 300 UNITS/3 ML VIAL SQ SCH (08:57)
[2017-07-02] MEDS ORDERED: *HR* OxyCODONE ER (12 HR) 10 MG TABLET PO SCH (09:00)
[2017-07-02] MEDS: Gabapentin 300 MG CAPSULE PO SCH (09:13)
[2017-07-02] MEDS: Aspirin 81 MG TAB.CHEW PO SCH (09:13)
[2017-07-02 11:22] VITALS: BP 119/74
--- NOTE | 2017-07-02 12:04 | Physician Discharge Referral ---
ExtendedCare Referral Info Transfer To: SNF/Inpatient rehab Provider in Charge: Yas Garcia Provider in Charge after Transfer: PCP Institutional Level of Care: Skilled - Diagnosis (1) Weakness Priority: Primary Status: Acute (2) Cirrhosis Priority: Secondary Status: Chronic (3) Diabetes mellitus Priority: Secondary Status: Chronic (4) Hyperlipemia Priority: Secondary Status: Chronic (5) Diastolic CHF Priority: Secondary Status: Chronic (6) Pancytopenia Priority: Secondary Status: Chronic (7) CAD (coronary artery disease) Priority: Secondary Status: Chronic (8) CKD (chronic kidney disease) stage 3, GFR 30-59 ml/min Priority: Secondary Status: Chronic (9) Rhabdomyolysis Priority: Secondary Status: Resolved (10) Frequent falls Priority: Secondary Status: Acute (11) HLD (hyperlipidemia) Priority: Secondary Status: Chronic (12) HTN (hypertension) Priority: Secondary Status: Chronic Prognosis: Fair Aware of Diagnosis: Patient Aware of Prognosis: Patient - Transfer Medications Prescriptions: Gabapentin [Neurontin] 900 mg PO TID #30 capsule Oxycodone HCl 10 mg PO BID #20 tablet Home Medications: Levothyroxine [Synthroid] 50 mcg PO QAM 04/08/15 [History] Omeprazole [PriLOSEC] 40 mg PO BID 04/08/15 [History] Promethazine [Phenergan] 25 mg PO TID PRN 12/03/15 [History] Tizanidine HCl 4 mg PO QPM 08/03/16 [History] Aspirin 81 mg PO DAILY #30 tab.chew 08/06/16 [Rx] Atorvastatin [Lipitor] 40 mg PO HS 03/17/17 [History] Ropinirole HCl [Requip] 4 mg PO HS 05/01/17 [History] Trazodone HCl 100 - 200 mg PO HS 05/01/17 [History] DULoxetine [Cymbalta] 30 mg PO DAILY 06/10/17 [History] Gabapentin [Neurontin] 900 mg PO TID #30 capsule 07/02/17 [Rx] Oxycodone HCl 10 mg PO BID #20 tablet 07/02/17 [Rx] Allergies/Adverse Reactions: 3 Allergy/AdvReac Type Severity Reaction Status Date / Time morphine Allergy Intermediate Hives Verified 06/10/17 10:53 codeine Allergy Mild Itching Verified 06/10/17 10:53 Penicillins AdvReac Severe COMA Verified 06/10/17 10:53 nitroglycerin AdvReac Mild LOW BLOOD Verified 06/10/17 10:53 PRESSURE NITRATES Allergy Mild Itching Uncoded 06/10/17 10:53 NUBAIN Allergy Mild Itching Uncoded 06/10/17 10:53 - Respiratory Orders Oxygen / L per min Smoking Cessation: Smoking cessation has been advised. For more information, call the [facility] Quit Line at 9-656-DOMF-NOW. - Advance Directives Code Status: Full Code - Mobility Orders Ambulate - Rehabiliation Orders Rehab Potential: Fair Rehab Orders: Evaluation for Physical Therapy - Diet Orders No Concentrated Sweets, Cardiac CERTIFICATION: I certify that the transfer of the above named patient to an Extended Care Facility is necessary for the continuing treatment of the diagnosis listed. The above information is true and accurate reflection of patient's current condition. Confidential - Redisclosure prohibited without a patient's written consent.
--- NOTE | 2017-07-02 12:07 | Discharge Summary ---
Date of Encounter: 07/02/17 Time of Encounter: 12:05 - Discharge Diagnosis (1) Weakness Priority: Primary Status: Acute Comments: Patient with obvious weakness and decreased movement bilateral lower extremities on physical exam. No urinary or bowel retention or incontinence History of CVA 3. He has no other focal neurological deficits. There is no facial droop, no pronator drift, no slurred speech. Dysphasia screen was ordered, patient passed successfully. Patient is unable to have MRI due to pacemaker. Head CT without contrast showed mild generalized atrophy normal for his age. There is no acute intracranial abnormality. Second head CT also negative for intracranial abnormality. Patient had GENESIS done, bilateral lower extremities normal. Patient has bounding bilateral pedal pulses. Patient had falls at home, pelvis x-ray is negative. C-spine CT negative, there is multi-level degenerative disc disease. Chest x-ray is negative. CT lumbar spine shows continued chronic issues. Neurology has seen patient, suggest patient would benefit from short-term rehabilitation as well as pain management. [facility] back specialist called for transfer per request by patient, and they stated to see patient as out-patient , no indication for in-patient admission Patient this morning, stated he has his own back surgeon, follow up with him/her Stable for transfer to SNF (2) Cirrhosis Priority: Secondary Status: Chronic Comments: Chronic and stable. Qualifiers: Hepatic cirrhosis type: other cirrhosis Qualified Code(s): K74.69 - Other cirrhosis of liver (3) Diabetes mellitus Priority: Secondary Status: Chronic Comments: Controlled, patient takes no medications at home, continue to monitor. Qualifiers: Diabetes mellitus type: type 2 Diabetes mellitus complication status: with kidney complications Diabetes mellitus complication detail: with chronic kidney disease Diabetes mellitus prison insulin use: without prison use Chronic kidney disease stage: stage 3 (moderate) Qualified Code(s): E11.22 - Type 2 diabetes mellitus with diabetic chronic kidney disease; N18.3 - Chronic kidney disease, stage 3 (moderate); N18.3 - Chronic kidney disease, stage 3 (moderate) (4) Hyperlipemia Priority: Secondary Status: Chronic Comments: Continue home medications. Qualifiers: Hyperlipidemia type: unspecified Qualified Code(s): E78.5 - Hyperlipidemia , unspecified (5) Diastolic CHF Priority: Secondary Status: Chronic Qualifiers: Congestive heart failure chronicity: chronic Qualified Code(s): I50.32 - Chronic diastolic (congestive) heart failure (6) Pancytopenia Priority: Secondary Status: Chronic Comments: Chronic and stable. (7) CAD (coronary artery disease) Priority: Secondary Status: Chronic Qualifiers: Coronary Disease-Associated Artery/Lesion type: unspecified vessel or lesion type [place] vs. transplanted heart: [place] heart Associated angina: with unspecified angina Qualified Code(s): I25.119 - Atherosclerotic heart disease of [place] coronary artery with unspecified angina pectoris (8) CKD (chronic kidney disease) stage 3, GFR 30-59 ml/min Priority: Secondary Status: Chronic (9) Rhabdomyolysis Priority: Primary Status: Resolved Comments: Resulted. Secondary to fall. Qualifiers: Rhabdomyolysis type: traumatic Encounter type: initial encounter Qualified Code(s): T79.6XXA - Traumatic ischemia of muscle, initial encounter (10) Frequent falls Priority: Secondary Status: Acute (11) HLD (hyperlipidemia) Priority: Secondary Status: Chronic Qualifiers: Hyperlipidemia type: pure hypercholesterolemia Qualified Code(s): E78.00 - Pure hypercholesterolemia, unspecified; E78.0 - Pure hypercholesterolemia (12) HTN (hypertension) Priority: Secondary Status: Chronic Qualifiers: Hypertension type: essential hypertension Qualified Code(s): I10 - Essential (primary) hypertension - Discharge Medications Prescriptions: Gabapentin [Neurontin] 900 mg PO TID #30 capsule Oxycodone HCl 10 mg PO BID #20 tablet Home Medications: Levothyroxine [Synthroid] 50 mcg PO QAM 04/08/15 [History] Omeprazole [PriLOSEC] 40 mg PO BID 04/08/15 [History] Promethazine [Phenergan] 25 mg PO TID PRN 12/03/15 [History] Tizanidine HCl 4 mg PO QPM 08/03/16 [History] Aspirin 81 mg PO DAILY #30 tab.chew 08/06/16 [Rx] Atorvastatin [Lipitor] 40 mg PO HS 03/17/17 [History] Ropinirole HCl [Requip] 4 mg PO HS 05/01/17 [History] Trazodone HCl 100 - 200 mg PO HS 05/01/17 [History] DULoxetine [Cymbalta] 30 mg PO DAILY 06/10/17 [History] Gabapentin [Neurontin] 900 mg PO TID #30 capsule 07/02/17 [Rx] Oxycodone HCl 10 mg PO BID #20 tablet 07/02/17 [Rx] Allergies/Adverse Reactions: 3 Allergy/AdvReac Type Severity Reaction Status Date / Time morphine Allergy Intermediate Hives Verified 06/10/17 10:53 codeine Allergy Mild Itching Verified 06/10/17 10:53 Penicillins AdvReac Severe COMA Verified 06/10/17 10:53 nitroglycerin AdvReac Mild LOW BLOOD Verified 06/10/17 10:53 PRESSURE NITRATES Allergy Mild Itching Uncoded 06/10/17 10:53 NUBAIN Allergy Mild Itching Uncoded 06/10/17 10:53 Date of admission: 06/26/17 18:50 Primary care physician: Niko Knight MD Consults: 06/26/17 21:03 Consult to Occupational Therapy [CONS] Routine Comment: Evaluate, develop and implement POC Reason for Consult: Patient reports bilateral leg weakness with more pronounced weakness on the left side. UEs equal. Please assess for strength, stability, safety, ambulation, and possible assisitive/rehabilitation needs for post-discharge planning. Consult to Rn Registry [CONS] Routine Reason for SW Consult: Please assess patient for possible home needs for post -discharge planning. 06/26/17 21:05 Consult to Physical Therapy [CONS] Routine Comment: Evaluate, develop and implement POC Reason for Consult: Patient reports bilateral leg weakness with more pronounced weakness on the left side. UEs equal. Please assess for strength, stability, safety, ambulation, and possible assisitive/rehabilitation needs for post-discharge planning. 06/28/17 12:25 Consult to Neurology [CONS] Routine Consulting Provider: Neurology [facility] Reason for Consult: weakness BLE, imaging negative, pt falling excessively. Time Notified: 12:26 Call Completed: Yes 06/29/17 10:46 Consult to Pain Management [CONS] Routine Consulting Provider: [facility] Reason for Consult: Exacerbation of chronic back pain. CT Lspine completed yesterday. Chronic issues. Pt with weakness to BLE, falls, increasing pain. PT consultation is in. Time Notified: 10:48 Call Completed: Yes Discharging clinician: Ho Garcia Anticipated date of discharge: 07/02/17 - Patient Status Disposition: Transfer Inpatient Rehab Fac Condition: Fair Functional capacity at discharge: independent ambulation Overall status at discharge: patient is progressing back to baseline - Discharge Instructions Follow Up With: Niko Knight MD [Primary Care Provider] - - Diet and Activity Activity: as per physical therapy, resume usual activities as tolerated Diet: diabetic diet, low fat, low cholesterol, low salt diet Interval History: See details below. Hospital course: Mr. Grewal is a 62 year old male who was admitted for complaints of bilateral lower extremity weakness without bowel or bladder incontinence or retention. He has a medical history of chronic spinal degenerative joint disease with history of multiple back surgeries. He is clinically stable for placement to [facility] for physical therapy. His workup during his admission revealed no active problems. See individual diagnosis for details. - Time Spent with Patient Total time spent providing and/or coordinating discharge services: Greater than 30 minutes - Constitutional Vitals: Temp Pulse Resp BP Pulse Ox 98.0 F 79 16 119/74 95 07/02/17 11:21 07/02/17 11:21 07/02/17 11:21 07/02/17 11:21 07/02/17 11:21 General appearance: Present: cooperative, A&O X 3, pleasant, no acute distress, obese, answers questions appropriately - Head Head exam: Present: atraumatic, normocephalic - Eye Eye exam: Present: PERRL, conjuntiva pink, sclera anicteric Pupils: Present: PERRL - Neck Neck exam general surgery: Present: supple, trachea midline. Absent: lymphadenopathy - Respiratory Respiratory exam: Present: CTAB. Absent: accessory muscle use, rales, rhonchi, wheezes - Cardiovascular Cardiovascular exam: Present: RRR, +S1, +S2. Absent: diastolic murmur, gallop, rubs, systolic murmur - GI/Abdominal GI/Abdominal exam: Present: normal bowel sounds, soft, no peritoneal signs. Absent: distended, tenderness - Extremities Exam Extremities exam: Present: warm, radial pulses palpable and symmetrical. Absent : calf tenderness, cyanotic, pedal edema Additional comments: Bilat LE weakness, power 3/5 L, power on RLE 4/5. Multiple healed skin lesions - Back Exam Additional comments: No masses or swelling. - Neurological Exam Neurological exam: Present: alert, CN II-XII intact, oriented X3, no focal deficits. Absent: pronater drift, facial droop, speech deficit - Skin Skin exam: Present: dry, intact - VTE Documentation of Mechanical Device: Intermittent pneumatic compression device
== END 2017-07-02 13:45 ==
LOC: 3BNU 14:37 → EMEROO 14:37 → SUATTDRO 18:50 → 3BNU 19:29
PROVIDERS: ADMIT Nurse Practitioner Family; ATTEND Internal Medicine

== ENCOUNTER 2018-01-01 16:15 | Observation (INO) ==
--- NOTE | 2018-01-01 16:50 | Emergency Department Note ---
Disposition Clinical Impression: Chest pain Qualifiers: Chest pain type: unspecified Qualified Code(s): R07.9 - Chest pain, unspecified Disposition: Still a Patient Condition: Undetermined Referrals: Niko Knight MD [Primary Care Provider] - Forms: ED Satisfaction Letter General Adult HPI - General Chief complaint: ED Chest Pain Stated complaint: CP Time Seen by Provider: 01/01/18 16:20 Source: patient Limitations: no limitations - History of Present Illness Pain Scale: 9 - Related Data Home Medications Medication Instructions Recorded Confirmed Levothyroxine [Synthroid] 50 mcg PO QAM 04/08/15 06/26/17 Omeprazole [PriLOSEC] 40 mg PO BID 04/08/15 06/26/17 Promethazine [Phenergan] 25 mg PO TID PRN 12/03/15 06/26/17 Tizanidine HCl 4 mg PO QPM 08/03/16 06/26/17 Atorvastatin [Lipitor] 40 mg PO HS 03/17/17 06/26/17 Ropinirole HCl [Requip] 4 mg PO HS 05/01/17 06/26/17 Trazodone HCl 100 - 200 mg PO HS 05/01/17 06/26/17 DULoxetine [Cymbalta] 30 mg PO DAILY 06/10/17 06/26/17 Previous Rx's Medication Instructions Recorded Aspirin 81 mg PO DAILY #30 tab.chew 08/06/16 Gabapentin [Neurontin] 900 mg PO TID #30 capsule 07/02/17 OxyCODONE Immed Rel [Roxicodone 10 10 mg PO BID #20 tablet 07/02/17 MG] Allergies Allergy/AdvReac Type Severity Reaction Status Date / Time morphine Allergy Intermediate Hives Verified 06/10/17 10:53 codeine Allergy Mild Itching Verified 06/10/17 10:53 Penicillins AdvReac Severe COMA Verified 06/10/17 10:53 nitroglycerin AdvReac Mild LOW BLOOD Verified 06/10/17 10:53 PRESSURE NITRATES Allergy Mild Itching Uncoded 06/10/17 10:53 NUBAIN Allergy Mild Itching Uncoded 06/10/17 10:53 Past Medical History - Past Medical History Medical history: Reports: cirrhosis, CHF, coronary artery disease, CVA, diabetes , GERD, hypertension, myocardial infarction, thyroid disease, other Surgical history: Reports: appendectomy, cholecystectomy, coronary bypass (CABG) , orthopedic, other, pacemaker/AICD Psychiatric history: Reports: no psych history - Social History Smoking Status: Never smoker Smokeless Tobacco Status: No Alcohol use: Reports: none Drug use: Reports: none Physical Exam - General Limitations: no limitations General appearance: alert, in no apparent distress Course Vital Signs Temperature 98.3 F 01/01/18 16:26 Pulse Rate 60 01/01/18 16:26 Respiratory Rate 18 01/01/18 16:26 Blood Pressure 118/65 01/01/18 16:26 O2 Sat by Pulse Oximetry 98 01/01/18 16:26 Temperature 98.3 F 01/01/18 16:26 Pulse Rate 60 01/01/18 16:26 Respiratory Rate 18 01/01/18 16:26 Blood Pressure 118/65 01/01/18 16:26 O2 Sat by Pulse Oximetry 98 01/01/18 16:26 Oxygen Delivery Oxygen Delivery Room Air Medical Decision Making - Lab Data Result diagrams: 01/01/18 16:39 01/01/18 16:39 Lab Results 01/01/18 01/01/18 01/01/18 Range/Units 16:39 16:39 16:39 WBC 4.0 L (4.3-11.1) K/mcL RBC 3.41 L (4.19-5.50) M/mcL Hgb 10.1 L (12.9-16.9) g/dL Hct 32.1 L (37.5-50.1) % MCV 94.1 (83.0-100.0) fL MCH 29.6 (28.0-33.3) pg MCHC 31.5 L (31.6-35.5) g/dL RDW 13.9 (11.5-14.5) % Plt Count 94 L (140-400) K/mcL MPV 10.8 (9.4-12.4) fL Immature Gran % 0.3 (0-4) % Seg Neutrophils % 61.2 % Lymphocytes % 27.6 % Monocytes % 6.8 % Eosinophils % 3.8 % Basophils % 0.3 % Neutrophils # 2.5 (1.6-8.9) K/mcL Lymphocytes # 1.1 (0.6-4.6) K/mcL Monocytes # 0.3 (0.0-1.3) K/mcL Eosinophils # 0.2 (0.0-0.6) K/mcL Basophils # 0.0 (0.0-0.2) K/mcL Platelet Estimate Decreased L (Normal) Immature Plt Fraction 3.9 (1.1-6.1) % D-Dimer 1165 H (0-500) ng/mLFEU Sodium 137 (136-145) mEq/L Potassium 3.8 (3.5-5.1) mEq/L Chloride 102 (98-107) mEq/L Carbon Dioxide 24 (23-29) mEq/L BUN 18 (8-23) mg/dL Creatinine 1.38 H (0.70-1.30) mg/dL Est GFR ( Amer) > 60 (> 60) Est GFR (Non-Af Amer) 52 L (> 60) BUN/Creatinine Ratio 13 (6-26) Glucose 219 H (70-105) mg/dL Calculated Osmolality 293 (280-300) Calcium 9.3 (8.6-10.3) mg/dL Total Bilirubin 0.4 (0.3-1.0) mg/dL Direct Bilirubin 0.0 (0.0-0.2) mg/dL Indirect Bilirubin 0.4 (0.0-1.2) mg/dL AST 18 (13-39) Units/L ALT 12 (7-52) Units/L Alkaline Phosphatase 98 (34-104) Units/L Troponin I < 0.03 (< 0.04) ng/mL Serum Total Protein 7.0 (6.4-8.9) g/dL Albumin 3.9 (3.5-5.7) g/dL Globulin 3.1 (2.4-3.5) g/dL Albumin/Globulin Ratio 1.3 (1.1-2.2) Attestation Statement - Attestation Attestation: I examined this patient and my medical decision-making was reviewed with the [employer] OPERATOR/PA/Advanced Practice Nurse/Resident Physician. I agree with the documented findings, disposition and treatment plan as described except to the extent set forth below. I did see the patient and spoke with him and examined hime and he has onset of chest discomfort which started at 3:30 today, about one hour ago and it is constant and worse with exertion and initially did have diaphoresis and dyspnea and the patient does have radiation to left shoulder and no radiation through to the back. He is resting comfortably in the cart. I did review the patient' s EKG showing normal sinus rhythm with rate of 65 and evidence of right bundle- branch block and I did compare this to previous EKG from October 08 which appears to be similar so I do not have findings based on the EKG suggestive of stemi evaluation in progress including troponin testing but with the recent onset of pain patient will likely need to be admitted for further evaluation. Does have history of CABG as well as family history of heart disease. He is not a smoker. No radiation to the back. No pleuritic aspect. [id number]
[2018-01-01 17:05] LABS: Basophils % 0.3 %; Immature Granulocytes % 0.3 % (0-4); Mean Corpuscular HGB Conc 31.5 g/dL (31.6-35.5)
[2018-01-01 17:07] LABS: Eosinophils # 0.2 K/mcL (0.0-0.6); Eosinophils % 3.8 %; Hematocrit 32.1 % (37.5-50.1); Hemoglobin 10.1 g/dL (12.9-16.9); Immature Platelets 3.9 % (1.1-6.1); Lymphocytes # 1.1 K/mcL (0.6-4.6); Lymphocytes % 27.6 %; Mean Corpuscular Hemoglobin 29.6 pg (28.0-33.3); Mean Corpuscular Volume 94.1 fL (83.0-100.0); Mean Platelet Volume 10.8 fL (9.4-12.4); Monocytes # 0.3 K/mcL (0.0-1.3); Monocytes % 6.8 %; Platelet Count 94 K/mcL (140-400); Red Blood Count 3.41 M/mcL (4.19-5.50); Red Cell Distribution Width 13.9 % (11.5-14.5); Segmented Neutrophils % 61.2 %
--- NOTE | 2018-01-01 17:09 | Emergency Department Note ---
Disposition Clinical Impression: Chest pain Qualifiers: Chest pain type: unspecified Qualified Code(s): R07.9 - Chest pain, unspecified Disposition: Still a Patient Condition: Undetermined Referrals: Niko Knight MD [Primary Care Provider] - Forms: ED Satisfaction Letter Chest Pain HPI - General Chief Complaint: ED Chest Pain Stated Complaint: CP Time Seen by Provider: 01/01/18 16:20 Source: patient Mode of arrival: ambulatory Limitations: no limitations Vital Signs Reviewed: Yes Nursing Notes Reviewed: Yes - History of Present Illness HPI Narrative: 62 year old male with history of CAD and 3 vessel CABG. The patient complaining of chest pain that started roughly 1 hour prior to arrival. The patient states the pain is in his left chest wall with radiation to LUE. The patient States that he has associated dyspnea. No other complaints other than 1 day of intermittent hemoptysis. Denies leg swelling, Hx of DVT or PE, recent surgery or immobilizations. States that last heart cath was roughly 1 year ago. History of HTN, and HLD. Severity scale (1-10): 9 - Related Data Home Medications Medication Instructions Recorded Confirmed Levothyroxine [Synthroid] 50 mcg PO QAM 04/08/15 06/26/17 Omeprazole [PriLOSEC] 40 mg PO BID 04/08/15 06/26/17 Promethazine [Phenergan] 25 mg PO TID PRN 12/03/15 06/26/17 Tizanidine HCl 4 mg PO QPM 08/03/16 06/26/17 Atorvastatin [Lipitor] 40 mg PO HS 03/17/17 06/26/17 Ropinirole HCl [Requip] 4 mg PO HS 05/01/17 06/26/17 Trazodone HCl 100 - 200 mg PO HS 05/01/17 06/26/17 DULoxetine [Cymbalta] 30 mg PO DAILY 06/10/17 06/26/17 Previous Rx's Medication Instructions Recorded Aspirin 81 mg PO DAILY #30 tab.chew 08/06/16 Gabapentin [Neurontin] 900 mg PO TID #30 capsule 07/02/17 OxyCODONE Immed Rel [Roxicodone 10 10 mg PO BID #20 tablet 07/02/17 MG] Allergies Allergy/AdvReac Type Severity Reaction Status Date / Time morphine Allergy Intermediate Hives Verified 06/10/17 10:53 codeine Allergy Mild Itching Verified 06/10/17 10:53 Penicillins AdvReac Severe COMA Verified 06/10/17 10:53 nitroglycerin AdvReac Mild LOW BLOOD Verified 06/10/17 10:53 PRESSURE NITRATES Allergy Mild Itching Uncoded 06/10/17 10:53 NUBAIN Allergy Mild Itching Uncoded 06/10/17 10:53 All systems ED: reviewed and negative except as stated. Constitutional: Denies: fever, chills, weakness ENT ED: Denies: congestion Cardiovascular: Reports: chest pain, dyspnea on exertion. Denies: edema, syncope Respiratory: Reports: dyspnea. Denies: cough Gastrointestinal: Denies: abdominal pain, nausea, vomiting Genitourinary: Denies: urgency, dysuria Musculoskeletal: Denies: back pain, neck pain Integumentary: Denies: rash Neurological: Denies: headache Chest Pain PMH - Past Medical History Medical history: Reports: cirrhosis, CHF, coronary artery disease, CVA, diabetes , GERD, hypertension, myocardial infarction, thyroid disease, other Surgical history: Reports: appendectomy, cholecystectomy, coronary bypass (CABG) , orthopedic, other, pacemaker/AICD Psychiatric history: Reports: no psych history - Social History Smoking Status: Never smoker Alcohol use: Reports: none Drug use: Reports: none Physical Exam - General Limitations: no limitations General appearance: alert, in no apparent distress - Head Head exam: atraumatic, normocephalic, normal inspection - Eye Eye exam: Present: normal appearance, PERRL, EOMI - ENT ENT exam: normal exam, normal oropharynx, mucous membranes moist - Neck Neck exam: Present: normal inspection, full ROM, trachea midline - Chest Chest inspection: Present: normal inspection, symmetric chest wall rise - Respiratory Respiratory exam: Present: normal lung sounds bilaterally - Cardiovascular Cardiovascular exam: Present: regular rate, normal rhythm, normal heart sounds - Abdominal Exam Abdominal exam: Present: soft, Non-Tender. Absent: tenderness, distention, guarding, rebound, rigidity - Extremities Exam Extremities exam: Present: normal inspection, full ROM. Absent: tenderness, pedal edema - Neurological Exam Neurological exam: Present: alert, oriented X3 - Skin Skin exam: Present: warm, dry, intact, normal color Course Vital Signs Temperature 98.3 F 01/01/18 16:26 Pulse Rate 60 01/01/18 16:26 Respiratory Rate 18 01/01/18 16:26 Blood Pressure 118/65 01/01/18 16:26 O2 Sat by Pulse Oximetry 98 01/01/18 16:26 Temperature 98.3 F 01/01/18 16:26 Pulse Rate 60 01/01/18 16:26 Respiratory Rate 18 01/01/18 16:26 Blood Pressure 118/65 01/01/18 16:26 O2 Sat by Pulse Oximetry 98 01/01/18 16:26 Oxygen Delivery Oxygen Delivery Room Air Chest Pain - Lab Data Result diagrams: 01/01/18 16:39 01/01/18 16:39 Lab Results 01/01/18 01/01/18 01/01/18 Range/Units 16:39 16:39 16:39 WBC 4.0 L (4.3-11.1) K/mcL RBC 3.41 L (4.19-5.50) M/mcL Hgb 10.1 L (12.9-16.9) g/dL Hct 32.1 L (37.5-50.1) % MCV 94.1 (83.0-100.0) fL MCH 29.6 (28.0-33.3) pg MCHC 31.5 L (31.6-35.5) g/dL RDW 13.9 (11.5-14.5) % Plt Count 94 L (140-400) K/mcL MPV 10.8 (9.4-12.4) fL Immature Gran % 0.3 (0-4) % Seg Neutrophils % 61.2 % Lymphocytes % 27.6 % Monocytes % 6.8 % Eosinophils % 3.8 % Basophils % 0.3 % Neutrophils # 2.5 (1.6-8.9) K/mcL Lymphocytes # 1.1 (0.6-4.6) K/mcL Monocytes # 0.3 (0.0-1.3) K/mcL Eosinophils # 0.2 (0.0-0.6) K/mcL Basophils # 0.0 (0.0-0.2) K/mcL Platelet Estimate Decreased L (Normal) Immature Plt Fraction 3.9 (1.1-6.1) % D-Dimer 1165 H (0-500) ng/mLFEU Sodium 137 (136-145) mEq/L Potassium 3.8 (3.5-5.1) mEq/L Chloride 102 (98-107) mEq/L Carbon Dioxide 24 (23-29) mEq/L BUN 18 (8-23) mg/dL Creatinine 1.38 H (0.70-1.30) mg/dL Est GFR ( Amer) > 60 (> 60) Est GFR (Non-Af Amer) 52 L (> 60) BUN/Creatinine Ratio 13 (6-26) Glucose 219 H (70-105) mg/dL Calculated Osmolality 293 (280-300) Calcium 9.3 (8.6-10.3) mg/dL Total Bilirubin 0.4 (0.3-1.0) mg/dL Direct Bilirubin 0.0 (0.0-0.2) mg/dL Indirect Bilirubin 0.4 (0.0-1.2) mg/dL AST 18 (13-39) Units/L ALT 12 (7-52) Units/L Alkaline Phosphatase 98 (34-104) Units/L Troponin I < 0.03 (< 0.04) ng/mL Serum Total Protein 7.0 (6.4-8.9) g/dL Albumin 3.9 (3.5-5.7) g/dL Globulin 3.1 (2.4-3.5) g/dL Albumin/Globulin Ratio 1.3 (1.1-2.2) - EKG Data EKG attestation: Yes I reviewed and interpreted this EKG. EKG results narrative: Heart rate 65 bpm. Normal sinus rhythm. No ST elevation or ST depression noted. Right bundle branch block noted. EKG similar appearance EKG from 2017.
[2018-01-01 17:12] LABS: Neutrophils # 2.5 K/mcL (1.6-8.9)
[2018-01-01 17:13] LABS: Platelet Estimate Decreased (Normal)
[2018-01-01 17:28] LABS: Troponin I < 0.03 ng/mL (< 0.04)
[2018-01-01 17:31] LABS: BUN/Creatinine Ratio 13 (6-26); Blood Urea Nitrogen 18 mg/dL (8-23); Calcium 9.3 mg/dL (8.6-10.3); Carbon Dioxide 24 mEq/L (23-29); Chloride 102 mEq/L (98-107); Glucose 219 mg/dL (70-105); Osmolality,Calculated 293 (280-300); Potassium 3.8 mEq/L (3.5-5.1); Sodium 137 mEq/L (136-145); eGFR For African Americans > 60 (> 60); eGFR For Non-African Americans 52 (> 60)
[2018-01-01] MEDS ORDERED: Isovue-370 500 ML INFUS..BTL IV ONE (17:38)
[2018-01-01] MEDS ORDERED: Ondansetron 4 MG/2 ML VIAL IVP ONE (17:52)
[2018-01-01 18:04] LABS: Alanine Aminotransferase 12 Units/L (7-52); Albumin 3.9 g/dL (3.5-5.7); Albumin/Globulin Ratio 1.3 (1.1-2.2); Alkaline Phosphatase 98 Units/L (34-104); Aspartate Amino Transferase 18 Units/L (13-39); Bilirubin,Indirect 0.4 mg/dL (0.0-1.2); Bilirubin,Total 0.4 mg/dL (0.3-1.0); Globulin 3.1 g/dL (2.4-3.5)
[2018-01-01] MEDS ORDERED: Levofloxacin 750 MG/150 ML 750 MG/150 ML BAG IVPB ONE (18:53)
--- NOTE | 2018-01-01 19:12 | Emergency Department Note ---
Disposition Clinical Impression: Chest pain Qualifiers: Chest pain type: unspecified Qualified Code(s): R07.9 - Chest pain, unspecified Disposition: Still a Patient Condition: Undetermined Referrals: Niko Knight MD [Primary Care Provider] - Forms: ED Satisfaction Letter General Adult HPI - General Chief complaint: ED Chest Pain Stated complaint: CP Time Seen by Provider: 01/01/18 16:20 Source: patient Mode of arrival: ambulatory Limitations: no limitations - History of Present Illness Pain Scale: 9 - Related Data Home Medications Medication Instructions Recorded Confirmed Levothyroxine [Synthroid] 50 mcg PO QAM 04/08/15 06/26/17 Omeprazole [PriLOSEC] 40 mg PO BID 04/08/15 06/26/17 Promethazine [Phenergan] 25 mg PO TID PRN 12/03/15 06/26/17 Tizanidine HCl 4 mg PO QPM 08/03/16 06/26/17 Atorvastatin [Lipitor] 40 mg PO HS 03/17/17 06/26/17 Ropinirole HCl [Requip] 4 mg PO HS 05/01/17 06/26/17 Trazodone HCl 100 - 200 mg PO HS 05/01/17 06/26/17 DULoxetine [Cymbalta] 30 mg PO DAILY 06/10/17 06/26/17 Previous Rx's Medication Instructions Recorded Aspirin 81 mg PO DAILY #30 tab.chew 08/06/16 Gabapentin [Neurontin] 900 mg PO TID #30 capsule 07/02/17 OxyCODONE Immed Rel [Roxicodone 10 10 mg PO BID #20 tablet 07/02/17 MG] Allergies Allergy/AdvReac Type Severity Reaction Status Date / Time morphine Allergy Intermediate Hives Verified 06/10/17 10:53 codeine Allergy Mild Itching Verified 06/10/17 10:53 Penicillins AdvReac Severe COMA Verified 06/10/17 10:53 nitroglycerin AdvReac Mild LOW BLOOD Verified 06/10/17 10:53 PRESSURE NITRATES Allergy Mild Itching Uncoded 06/10/17 10:53 NUBAIN Allergy Mild Itching Uncoded 06/10/17 10:53 Constitutional: Denies: fever, chills, weakness ENT ED: Denies: congestion Cardiovascular: Reports: chest pain, dyspnea on exertion. Denies: edema, syncope Respiratory: Reports: dyspnea. Denies: cough Gastrointestinal: Denies: abdominal pain, nausea, vomiting Genitourinary: Denies: urgency, dysuria Musculoskeletal: Denies: back pain, neck pain Integumentary: Denies: rash Neurological: Denies: headache Past Medical History - Past Medical History Medical history: Reports: cirrhosis, CHF, coronary artery disease, CVA, diabetes , GERD, hypertension, myocardial infarction, thyroid disease, other Surgical history: Reports: appendectomy, cholecystectomy, coronary bypass (CABG) , orthopedic, other, pacemaker/AICD Psychiatric history: Reports: no psych history - Social History Smoking Status: Never smoker Smokeless Tobacco Status: No Alcohol use: Reports: none Drug use: Reports: none Physical Exam - General Limitations: no limitations General appearance: alert, in no apparent distress Course - Reevaluation(s) Reevaluation #1: Attestation note I examined this patient and my medical decision-making was reviewed with the emergency medicine resident. I agree with the documented findings, disposition and treatment plan as described except to the extent set forth below. Patient seen with emergency medicine resident Sam Castaneda, Please see a copy of his note for details of the H&P, ED evaluation, management and disposition. I have independently evaluated the patient and confirmed appropriate portions of the history and physical exam. Briefly: Patient received in sign out at 1900. Please see the note by Dr. Kam and Leia from the daytime team. Pt has history of distant CABG , comes in with chest pain EKG and troponin show no acute changes patient be admitted. Time: 19:10 Vital Signs Temperature 98.3 F 01/01/18 16:26 Pulse Rate 60 01/01/18 16:26 Respiratory Rate 18 01/01/18 16:26 Blood Pressure 118/65 01/01/18 16:26 O2 Sat by Pulse Oximetry 98 01/01/18 16:26 Temperature 98.3 F 01/01/18 16:26 Pulse Rate 60 01/01/18 16:26 Respiratory Rate 18 01/01/18 16:26 Blood Pressure 118/65 01/01/18 16:26 O2 Sat by Pulse Oximetry 98 01/01/18 16:26 Oxygen Delivery Oxygen Delivery Room Air Medical Decision Making - Lab Data Result diagrams: 01/01/18 16:39 01/01/18 16:39 Lab Results 0601/01/18 01/01/18 Range/Units 16:39 16:39 16:39 WBC 4.0 L (4.3-11.1) K/mcL RBC 3.41 L (4.19-5.50) M/mcL Hgb 10.1 L (12.9-16.9) g/dL Hct 32.1 L (37.5-50.1) % MCV 94.1 (83.0-100.0) fL MCH 29.6 (28.0-33.3) pg MCHC 31.5 L (31.6-35.5) g/dL RDW 13.9 (11.5-14.5) % Plt Count 94 L (140-400) K/mcL MPV 10.8 (9.4-12.4) fL Immature Gran % 0.3 (0-4) % Seg Neutrophils % 61.2 % Lymphocytes % 27.6 % Monocytes % 6.8 % Eosinophils % 3.8 % Basophils % 0.3 % Neutrophils # 2.5 (1.6-8.9) K/mcL Lymphocytes # 1.1 (0.6-4.6) K/mcL Monocytes # 0.3 (0.0-1.3) K/mcL Eosinophils # 0.2 (0.0-0.6) K/mcL Basophils # 0.0 (0.0-0.2) K/mcL Platelet Estimate Decreased L (Normal) Immature Plt Fraction 3.9 (1.1-6.1) % D-Dimer 1165 H (0-500) ng/mLFEU Sodium 137 (136-145) mEq/L Potassium 3.8 (3.5-5.1) mEq/L Chloride 102 (98-107) mEq/L Carbon Dioxide 24 (23-29) mEq/L BUN 18 (8-23) mg/dL Creatinine 1.38 H (0.70-1.30) mg/dL Est GFR ( Amer) > 60 (> 60) Est GFR (Non-Af Amer) 52 L (> 60) BUN/Creatinine Ratio 13 (6-26) Glucose 219 H (70-105) mg/dL Calculated Osmolality 293 (280-300) Calcium 9.3 (8.6-10.3) mg/dL Total Bilirubin 0.4 (0.3-1.0) mg/dL Direct Bilirubin 0.0 (0.0-0.2) mg/dL Indirect Bilirubin 0.4 (0.0-1.2) mg/dL AST 18 (13-39) Units/L ALT 12 (7-52) Units/L Alkaline Phosphatase 98 (34-104) Units/L Troponin I < 0.03 (< 0.04) ng/mL Serum Total Protein 7.0 (6.4-8.9) g/dL Albumin 3.9 (3.5-5.7) g/dL Globulin 3.1 (2.4-3.5) g/dL Albumin/Globulin Ratio 1.3 (1.1-2.2)
[2018-01-01] MEDS ORDERED: *HR* Promethazine 25 MG/ML VIAL IVP ONE (19:22)
[2018-01-01] MEDS ORDERED: *HR* FentaNYL (PF) 100 MCG/2 ML VIAL IVP ONE (19:23)
--- NOTE | 2018-01-01 19:42 | Emergency Department Note ---
Disposition Clinical Impression: Community acquired pneumonia Chest pain Qualifiers: Chest pain type: unspecified Qualified Code(s): R07.9 - Chest pain, unspecified Disposition: Admitted As Inpatient Condition: Undetermined Referrals: Niko Knight MD [Primary Care Provider] - Forms: ED Satisfaction Letter Time of Disposition: 20:00 Chest Pain HPI - General Chief Complaint: ED Chest Pain Stated Complaint: CP Time Seen by Provider: 01/01/18 16:20 Source: patient Mode of arrival: ambulatory Limitations: no limitations Vital Signs Reviewed: Yes Nursing Notes Reviewed: Yes - History of Present Illness HPI Narrative: Patient received on SIGNOUT from the day team, Drs. Dupree and Negin. In brief: 62-year-old gentleman presents from home for evaluation of chest pain described as left chest heaviness with radiation to his left arm. Associated with dyspnea and nausea. He had a single episode of mild hematemesis on Thursday. He does take Phenergan injections at home for chronic nausea. Medical history is significant for hypertension, hyperlipidemia, CAD with triple bypass years ago. Last heart catheter was one year ago and reportedly showed no actionable stenosis. He denies any fever, chills, palpitations, unusual back pain, diaphoresis, abdominal pain, change in bowel or bladder habits, lightheadedness , headache. Severity scale (1-10): 9 - Related Data Home Medications Medication Instructions Recorded Confirmed Levothyroxine [Synthroid] 50 mcg PO QAM 04/08/15 01/01/18 Omeprazole [PriLOSEC] 40 mg PO BID 04/08/15 01/01/18 Promethazine [Phenergan] 25 mg PO TID PRN 12/03/15 01/01/18 Tizanidine HCl 4 mg PO QPM 08/03/16 01/01/18 Atorvastatin [Lipitor] 40 mg PO HS 03/17/17 01/01/18 Ropinirole HCl [Requip] 4 mg PO HS 05/01/17 01/01/18 Trazodone HCl 100 - 200 mg PO HS 05/01/17 01/01/18 OxyCODONE Immed Rel [Roxicodone 10 10 mg PO QID PRN 01/01/18 01/01/18 MG] Pantoprazole Sodium 40 mg PO DAILY 01/01/18 01/01/18 Previous Rx's Medication Instructions Recorded Aspirin 81 mg PO DAILY #30 tab.chew 08/06/16 Gabapentin [Neurontin] 900 mg PO TID #30 capsule 07/02/17 Allergies Allergy/AdvReac Type Severity Reaction Status Date / Time morphine Allergy Intermediate Hives Verified 06/10/17 10:53 codeine Allergy Mild Itching Verified 06/10/17 10:53 Penicillins AdvReac Severe COMA Verified 06/10/17 10:53 nitroglycerin AdvReac Mild LOW BLOOD Verified 06/10/17 10:53 PRESSURE NITRATES Allergy Mild Itching Uncoded 06/10/17 10:53 NUBAIN Allergy Mild Itching Uncoded 06/10/17 10:53 All systems ED: reviewed and negative except as stated. Review of Systems: As Per HPI Constitutional: Denies: fever, chills, weakness ENT ED: Denies: congestion Cardiovascular: Reports: chest pain, dyspnea on exertion. Denies: edema, syncope Respiratory: Reports: dyspnea. Denies: cough Gastrointestinal: Denies: abdominal pain, nausea, vomiting Genitourinary: Denies: urgency, dysuria Musculoskeletal: Denies: back pain, neck pain Integumentary: Denies: rash Neurological: Denies: headache Chest Pain PMH - Past Medical History Medical history: Reports: cirrhosis, CHF, coronary artery disease, CVA, diabetes , GERD, hypertension, myocardial infarction, thyroid disease, other Surgical history: Reports: appendectomy, cholecystectomy, coronary bypass (CABG) , orthopedic, other, pacemaker/AICD Psychiatric history: Reports: no psych history - Social History Smoking Status: Never smoker Alcohol use: Reports: none Drug use: Reports: none Physical Exam Vital Signs Reviewed General: Patient is alert, oriented, and in no acute distress. He appears older than stated age and pale. Head: atraumatic, normocephalic Eye: normal appearance, no scleral icterus, no conjunctival injection ENT: mucous membranes moist, normal external ear exam Neck: normal inspection, trachea midline, full ROM Chest: normal inspection, symmetric chest rise Respiratory: Good respiratory effort. Bilateral breath sounds are clear without wheezing, crackles, or rhonchi. Cardiovascular: Regular rate and rhythm. No clicks, rubs, gallops, or murmors. Normal heart sounds. Abdomen: Bowel sounds present normoactive x-4 quadrants. Abdomen is soft, nondistended, and nontender. No guarding or rebound. No organomegaly noted. Musculoskeletal: Spontaneously moving all extremities. Skin: warm, dry, intact. Neuro: Alert and oriented x4. Sensation light touch intact. Psych: Patient's affect is appropriate for situation. - General Limitations: no limitations General appearance: alert, in no apparent distress Course Course Narrative: Patient received on sign out from the day team. ED workup complete with exception of a depending CTA. CTA performed secondary to elevated d-dimer. It was negative for PE however did show bilateral groundglass opacities where radiology supposed possible bronchiolitis. Patient empirically covered with Levaquin for community-acquired pneumonia. Chest x-ray unremarkable. EKG shows no acute ischemic changes. Initial troponin is normal limits. I discussed the patient her concern for chest pain which could be of concerning etiology given his medical history. He is in agreement for coming into the hospital for continued evaluation and management. Saeid's, his likely community-acquired pneumonia and empiric coverage with an biotics. He continues to be nauseous with some chest pain. Will provide Phenergan and analgesia. I discussed the patient with the admitting hospitalist Dr. Jiang who agrees to accept the patient for continued evaluation and management. Telemetry been requested. Vital Signs Temperature 98.3 F 01/01/18 16:26 Pulse Rate 60 01/01/18 16:26 Respiratory Rate 18 01/01/18 16:26 Blood Pressure 118/65 01/01/18 16:26 O2 Sat by Pulse Oximetry 98 01/01/18 16:26 Temperature 98.3 F 01/01/18 16:26 Pulse Rate 68 01/01/18 19:12 Respiratory Rate 18 01/01/18 19:12 Blood Pressure 116/60 01/01/18 19:12 O2 Sat by Pulse Oximetry 97 01/01/18 19:12 Oxygen Delivery Oxygen Delivery Room Air Chest Pain - Lab Data Result diagrams: 01/01/18 16:39 01/01/18 16:39 Lab Results 01/01/18 01/01/18 01/01/18 Range/Units 16:39 16:39 16:39 WBC 4.0 L (4.3-11.1) K/mcL RBC 3.41 L (4.19-5.50) M/mcL Hgb 10.1 L (12.9-16.9) g/dL Hct 32.1 L (37.5-50.1) % MCV 94.1 (83.0-100.0) fL MCH 29.6 (28.0-33.3) pg MCHC 31.5 L (31.6-35.5) g/dL RDW 13.9 (11.5-14.5) % Plt Count 94 L (140-400) K/mcL MPV 10.8 (9.4-12.4) fL Immature Gran % 0.3 (0-4) % Seg Neutrophils % 61.2 % Lymphocytes % 27.6 % Monocytes % 6.8 % Eosinophils % 3.8 % Basophils % 0.3 % Neutrophils # 2.5 (1.6-8.9) K/mcL Lymphocytes # 1.1 (0.6-4.6) K/mcL Monocytes # 0.3 (0.0-1.3) K/mcL Eosinophils # 0.2 (0.0-0.6) K/mcL Basophils # 0.0 (0.0-0.2) K/mcL Platelet Estimate Decreased L (Normal) Immature Plt Fraction 3.9 (1.1-6.1) % D-Dimer 1165 H (0-500) ng/mLFEU Sodium 137 (136-145) mEq/L Potassium 3.8 (3.5-5.1) mEq/L Chloride 102 (98-107) mEq/L Carbon Dioxide 24 (23-29) mEq/L BUN 18 (8-23) mg/dL Creatinine 1.38 H (0.70-1.30) mg/dL Est GFR ( Amer) > 60 (> 60) Est GFR (Non-Af Amer) 52 L (> 60) BUN/Creatinine Ratio 13 (6-26) Glucose 219 H (70-105) mg/dL Calculated Osmolality 293 (280-300) Calcium 9.3 (8.6-10.3) mg/dL Total Bilirubin 0.4 (0.3-1.0) mg/dL Direct Bilirubin 0.0 (0.0-0.2) mg/dL Indirect Bilirubin 0.4 (0.0-1.2) mg/dL AST 18 (13-39) Units/L ALT 12 (7-52) Units/L Alkaline Phosphatase 98 (34-104) Units/L Troponin I < 0.03 (< 0.04) ng/mL Serum Total Protein 7.0 (6.4-8.9) g/dL Albumin 3.9 (3.5-5.7) g/dL Globulin 3.1 (2.4-3.5) g/dL Albumin/Globulin Ratio 1.3 (1.1-2.2) Heart Score - Score History: Moderately Suspicious EKG: Non Specific repolarisation Disturbance Age: 45-65 Risk Factors: Equal/Greater than 3 risk factor or history of atherosclerotic disease Troponin: Less than normal limit HEART Score Total: 5
[2018-01-02] MEDS: *HR* OxyCODONE Immed Rel 5 MG TABLET PO PRN ×2 (01:33→14:20)
--- NOTE | 2018-01-02 01:38 | Internal Med History&Physical ---
Date of Encounter: 01/02/18 Time of Encounter: 01:15 Internal Medicine - H&P: HPI Admitted From: Emergency Dept Plans for Post Hospital Care: Home History of present illness: Mr. Grewal is a 62 year old male with past medical history of CAD s/p CABG, pacemaker, hyperkalemia, DM-II, diastolic CHF, cirrhosis, pancytopenia, rhabdomyolysis, CKD stage III, thrombocytopenia,OA of L hip, HTN, and HLD. Pt states he developed chest pain around 3:30pm 12/31/2017. Pain described as pressure like and radiating to LUE. Pt states "like some one is sitting on my chest." Initially 7/10 but 9/10 during my exam was associated with diaphoresis but denies SOB. Pt has hx of CAD, and he is s/p CABG. He states he saw Dr. Chawla last year. Pt has multiple drug allergies which include morphine, codeine, PCN, nitroglycerine/nitrates (causes syncope), and nubain. CODE STATUS: DNR-CCA His last [facility] was 06/15/2017 and showed findings below [facility] 05/2017 Lesion Findings/Interventions * Left Main Coronary Artery The LMCA is angiographically free of disease. * Left Anterior Descending There is a 100% stenosis in the mid LAD and 40% in the proximal LAD * Circumflex There is a 20% stenosis in the Mid Circumflex. * Right Coronary Artery The Right Coronary Artery has left to right collaterals. There is a 100% stenosis in the Mid RCA. Additional Findings: Grafts * The left internal mammary graft to the Proximal LAD is patent. Right iliofemoral angiography - no severe vascular disease identified with appropriate sheath placement. Echo 01/02/2017 Impressions: LVEF 55-60%. Normal LV chamber size and wall thickness. Not all LV segments were well visualized, but overall systolic function is normal. Right ventricle appeared mildly dilated in some views. Systolic functionn was normal. Mild to moderately dilated left atrium. Atypical septal motion consistent with paced rhythm. No evidence of PFO with agitated saline contrast. Mild tricuspid regurgitation. Mild pulmonary hypertension. Estimated RVSP is 36 mmHg. A device lead was visualized in the right atrium and right ventricle. Past Med Surg Social Fam HX - Past Medical History Medical history: cirrhosis, CHF, coronary artery disease, CVA, diabetes, GERD, hypertension, myocardial infarction, thyroid disease, other Additional medical history: ITP Psychiatric history: no psych history - Past Surgical History Surgical History: appendectomy, cholecystectomy, coronary bypass (CABG), orthopedic, other, pacemaker/AICD Additional surgical history: back surgery, Left Hip replacement - Social History Smoking Status: Never smoker Smokeless Tobacco Status: No Alcohol use: none Drug use: none - Family History Father Family Member Ethnicity: Non- Living Status: Hx Family Cardiac Disorders: Yes (PR, Bypass) Brother Family Member Ethnicity: Non- Living Status: Hx Family Cardiac Disorders: Yes (PR) Mother Family Member Ethnicity: Non- Living Status: Hx Family Cardiac Disorders: No Internal Medicine - H&P: Meds Levothyroxine [Synthroid] 50 mcg PO QAM 04/08/15 [History] Omeprazole [PriLOSEC] 40 mg PO BID 04/08/15 [History] Promethazine [Phenergan] 25 mg PO TID PRN 12/03/15 [History] Tizanidine HCl 4 mg PO QPM 08/03/16 [History] Aspirin 81 mg PO DAILY #30 tab.chew 08/06/16 [Rx] Atorvastatin [Lipitor] 40 mg PO HS 03/17/17 [History] Ropinirole HCl [Requip] 4 mg PO HS 05/01/17 [History] Trazodone HCl 100 - 200 mg PO HS 05/01/17 [History] Gabapentin [Neurontin] 900 mg PO TID #30 capsule 07/02/17 [Rx] OxyCODONE Immed Rel [Roxicodone 10 MG] 10 mg PO QID PRN 01/01/18 [History] Pantoprazole Sodium 40 mg PO DAILY 01/01/18 [History] 3 Allergy/AdvReac Type Severity Reaction Status Date / Time morphine Allergy Intermediate Hives Verified 06/10/17 10:53 codeine Allergy Mild Itching Verified 06/10/17 10:53 Penicillins AdvReac Severe COMA Verified 06/10/17 10:53 nitroglycerin AdvReac Mild LOW BLOOD Verified 06/10/17 10:53 PRESSURE NITRATES Allergy Mild Itching Uncoded 06/10/17 10:53 NUBAIN Allergy Mild Itching Uncoded 06/10/17 10:53 All Systems PM: A 10-system review of systems was performed and is negative for pertinent findings except as documented above in the HPI. - Constitutional Vitals: Temp Pulse Resp BP Pulse Ox 97.8 F 57 16 129/76 98 01/01/18 23:36 01/01/18 23:36 01/01/18 23:36 01/01/18 23:36 01/01/18 23:36 General appearance: Present: A&O X 3, no acute distress - Head Head exam: Present: atraumatic, normocephalic - Eye Eye exam: Present: PERRL, conjuntiva pink, sclera anicteric Pupils: Present: PERRL - Neck Neck exam general surgery: Present: supple, trachea midline. Absent: lymphadenopathy - Respiratory Respiratory exam: Present: CTAB. Absent: accessory muscle use, rales, rhonchi, wheezes - Cardiovascular Cardiovascular exam: Present: RRR, +S1, +S2, systolic murmur. Absent: diastolic murmur, gallop, rubs - GI/Abdominal GI/Abdominal exam: Present: normal bowel sounds, soft, no peritoneal signs. Absent: distended, tenderness - Extremities Exam Extremities exam: Present: warm, radial pulses palpable and symmetrical. Absent : calf tenderness, cyanotic, pedal edema - Neurological Exam Neurological exam: Present: CN II-XII intact, oriented X3, no focal deficits. Absent: pronater drift, facial droop, speech deficit - Skin Skin exam: Present: dry, intact Internal Med - H&P Results - Labs CBC & Chem 7: 01/01/18 16:39 01/01/18 16:39 - Assessment and plan (1) Chest pain Current Visit: No Status: Acute Assessment and plan: Initial troponin <0.03. Will obtain STAT troponin and recheck EKG now. CXR no acute disease. Previous EKG showed paced rhythm. Pt given Fentanyl 25mcg x one in ED which he states helped. Will resume home dempsey medication. Qualifiers: Chest pain type: unspecified Qualified Code(s): R07.9 - Chest pain, unspecified (2) CAD (coronary artery disease) of bypass graft Current Visit: No Status: Chronic Assessment and plan: ASA and Atorvastatin Qualifiers: [place] vs. transplanted heart: [place] heart Associated angina: angina presence unspecified Qualified Code(s): I25.810 - Atherosclerosis of coronary artery bypass graft(s) without angina pectoris (3) Diabetes mellitus Current Visit: No Status: Chronic Assessment and plan: Will monitor and check Hgb A1c Qualifiers: Diabetes mellitus type: type 2 Diabetes mellitus alf insulin use: without sourcing consultant use Diabetes mellitus complication status: with kidney complications Diabetes mellitus complication detail: with chronic kidney disease Chronic kidney disease stage: stage 3 (moderate) Qualified Code(s): E11.22 - Type 2 diabetes mellitus with diabetic chronic kidney disease; N18.3 - Chronic kidney disease, stage 3 (moderate); N18.3 - Chronic kidney disease, stage 3 (moderate) (4) Hypertension Current Visit: No Status: Chronic Assessment and plan: NO medication on home med list. Will monitor. Qualifiers: Hypertension type: essential hypertension Qualified Code(s): I10 - Essential (primary) hypertension (5) Hyperlipemia Current Visit: No Status: Chronic Assessment and plan: Atorvastatin Qualifiers: Hyperlipidemia type: unspecified Qualified Code(s): E78.5 - Hyperlipidemia , unspecified (6) CKD (chronic kidney disease) stage 3, GFR 30-59 ml/min Current Visit: No Status: Chronic Assessment and plan: Will monitor renal function - Time Spent With Patient Total time spent is greater than 50% in coordination of care (as documented) at patient's floor/unit and/or counseling patient: 25 - 35 minutes
[2018-01-02] MEDS ORDERED: Naloxone 0.4 MG/ML INJ IVP PRN (01:49)
[2018-01-02 03:51] LABS: INR 1.2; Prothrombin Time 12.8 Seconds (9.4-12.1)
[2018-01-02 06:25] LABS: Hemoglobin 9.8 g/dL (12.9-16.9)
[2018-01-02 06:26] LABS: Basophils % 0.3 %
[2018-01-02 06:27] LABS: Eosinophils # 0.1 K/mcL (0.0-0.6); Eosinophils % 4.1 %; Hematocrit 31.1 % (37.5-50.1); Immature Granulocytes % 0.3 % (0-4); Immature Platelets 3.9 % (1.1-6.1); Lymphocytes # 1.2 K/mcL (0.6-4.6); Mean Corpuscular HGB Conc 31.5 g/dL (31.6-35.5); Mean Corpuscular Hemoglobin 29.4 pg (28.0-33.3); Mean Corpuscular Volume 93.4 fL (83.0-100.0); Mean Platelet Volume 10.9 fL (9.4-12.4); Monocytes # 0.2 K/mcL (0.0-1.3); Neutrophils # 1.9 K/mcL (1.6-8.9); Red Blood Count 3.33 M/mcL (4.19-5.50); Red Cell Distribution Width 13.8 % (11.5-14.5); Segmented Neutrophils % 54.3 %
[2018-01-02 06:41] LABS: Alanine Aminotransferase 10 Units/L (7-52); Albumin 3.6 g/dL (3.5-5.7); Albumin/Globulin Ratio 1.2 (1.1-2.2); Alkaline Phosphatase 79 Units/L (34-104); Aspartate Amino Transferase 14 Units/L (13-39); BUN/Creatinine Ratio 15 (6-26); Bilirubin,Total 0.5 mg/dL (0.3-1.0); Blood Urea Nitrogen 16 mg/dL (8-23); Calcium 9.2 mg/dL (8.6-10.3); Carbon Dioxide 26 mEq/L (23-29); Chloride 104 mEq/L (98-107); Glucose 106 mg/dL (70-105); Magnesium 1.7 mg/dL (1.6-2.6); Osmolality,Calculated 290 (280-300); Potassium 4.3 mEq/L (3.5-5.1); Sodium 139 mEq/L (136-145); Total Protein 6.6 g/dL (6.4-8.9); eGFR For African Americans > 60 (> 60); eGFR For Non-African Americans > 60 (> 60)
[2018-01-02 06:44] LABS: Platelet Count 91 K/mcL (140-400)
[2018-01-02 06:44] LABS: Estimated Average Glucose 148 mg/dl; Hemoglobin A1C 6.8 %
[2018-01-02] MEDS: Gabapentin 300 MG CAPSULE PO SCH ×3 (08:28→21:15)
[2018-01-02] MEDS: Aspirin 81 MG TAB.CHEW PO SCH ×2 (08:28→14:20)
[2018-01-02] MEDS ORDERED: NON-FORMULARY MEDICATION 1 EACH EACH (Pantoprazole Sodium [Pantoprazole Sodium] 40 MG) PO SCH (09:00)
--- NOTE | 2018-01-02 15:14 | Internal Med Progress Note ---
Date of Encounter: 01/02/18 Time of Encounter: 15:19 - Assessment and plan (1) Chest pain Current Visit: Yes Status: Chronic Assessment and plan: has known CAD. Presented with chest pain. Serial troponin negative, EKG without acute ST changes. Discussed inpatient versus outpatient stress test with patient and he prefers to stay for stress test. He will likely be a 2 day stress which means testing will not be completely until Friday 01/05. Monitor on telemetry Qualifiers: Chest pain type: unspecified Qualified Code(s): R07.9 - Chest pain, unspecified (2) CAD (coronary artery disease) Current Visit: No Status: Chronic Assessment and plan: hx CABG and stents. With chest pain as noted above. Continue home ASA, statin, Qualifiers: Coronary Disease-Associated Artery/Lesion type: unspecified vessel or lesion type [place] vs. transplanted heart: [place] heart Associated angina: with unspecified angina Qualified Code(s): I25.119 - Atherosclerotic heart disease of [place] coronary artery with unspecified angina pectoris (3) CKD (chronic kidney disease) stage 3, GFR 30-59 ml/min Current Visit: No Status: Chronic Assessment and plan: per hx. renal function better than baseline. Avoid nephrotoxic agents as possible. (4) Diabetes mellitus Current Visit: No Status: Chronic Assessment and plan: Hgb A1c 6.8%. SSI. 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 BP controlled. Cont home BP medication Qualifiers: Hypertension type: essential hypertension Qualified Code(s): I10 - Essential (primary) hypertension (6) DVT prophylaxis Current Visit: No Status: Acute Assessment and plan: heparin - Time Spent With Patient Total time spent is greater than 50% in coordination of care (as documented) at patient's floor/unit and/or counseling patient: - Subjective Interval history: Seen and examined at bedside. Patient is new to me, information obtained from chart review and patient report. Still having chest pain/pressure. Radiates to left arm. Left heart catheterization was reviewed. Discussed inpatient versus outpatient testing with patient and he prefers to stay for inpatient stress test. - Constitutional Vitals: Temp Pulse Resp BP Pulse Ox 97.7 F 63 14 124/77 97 01/02/18 11:45 01/02/18 11:45 01/02/18 11:45 01/02/18 11:45 01/02/18 11:45 General appearance: Present: A&O X 3, morbidly obese, no acute distress - Head Head exam: Present: atraumatic, normocephalic - Eye Eye exam: Present: PERRL, conjuntiva pink, sclera anicteric Pupils: Present: PERRL - Neck Neck exam general surgery: Present: supple, trachea midline. Absent: lymphadenopathy - Respiratory Respiratory exam: Present: CTAB. Absent: accessory muscle use, rales, rhonchi, wheezes - Cardiovascular Cardiovascular exam: Present: RRR, +S1, +S2. Absent: diastolic murmur, gallop, rubs, systolic murmur - GI/Abdominal GI/Abdominal exam: Present: normal bowel sounds, soft, no peritoneal signs. Absent: distended, tenderness - Extremities Exam Extremities exam: Present: warm, radial pulses palpable and symmetrical. Absent : calf tenderness, cyanotic, pedal edema - Neurological Exam Neurological exam: Present: CN II-XII intact, oriented X3, no focal deficits. Absent: pronater drift, facial droop, speech deficit - Skin Skin exam: Present: dry, intact Internal Medicine: Result - Labs CBC & Chem 7: 01/02/18 05:28 01/02/18 05:28 Labs: Short CBC 01/02/18 Range/Units 05:28 WBC 3.4 L (4.3-11.1) K/mcL Hgb 9.8 L (12.9-16.9) g/dL Hct 31.1 L (37.5-50.1) % Plt Count 91 L (140-400) K/mcL Neutrophils # 1.9 (1.6-8.9) K/mcL BMP 01/02/18 05:28 Sodium 139 Potassium 4.3 Chloride 104 Carbon Dioxide 26 BUN 16 Creatinine 1.10 Glucose 106 H Calcium 9.2 Cardiac Enzymes 01/02/18 Range/Units 01:02 Troponin I < 0.03 (< 0.04) ng/mL Liver Function 01/02/18 Range/Units 05:28 Total Bilirubin 0.5 (0.3-1.0) mg/dL AST 14 (13-39) Units/L ALT 10 (7-52) Units/L Alkaline Phosphatase 79 (34-104) Units/L Albumin 3.6 (3.5-5.7) g/dL - ABG Interpretation ABG results: PT/INR, D-dimer PT 12.8 Seconds (9.4-12.1) H 01/02/18 03:17 D-Dimer 1165 ng/mLFEU (0-500) H 01/01/18 16:39 Consult Discharge Plan - Plan Referrals: Niko Knight MD [Primary Care Provider] -
[2018-01-02] MEDS: tiZANidine 4 MG TABLET PO SCH (17:35)
[2018-01-02] MEDS: Acetaminophen 325 MG TABLET PO PRN (17:35)
[2018-01-02] MEDS: traZODone 50 MG TABLET PO SCH (21:14)
[2018-01-02] MEDS: rOPINIRole 1 MG TABLET PO SCH (21:16)
[2018-01-02] MEDS: *HR* Heparin 5,000 UNIT/ML VIAL SQ SCH (21:16)
[2018-01-03] MEDS: *HR* OxyCODONE Immed Rel 5 MG TABLET PO PRN ×4 (02:42→23:59)
[2018-01-03 02:45] LABS: Bilirubin,Urine Negative (Negative); Blood,Urine Negative (Negative); Clarity,Urine Clear (Clear); Color,Urine Yellow (Yellow); Glucose,Urine (UA) Normal (Normal); Ketones,Urine Negative (Negative); Leukocyte Esterase,Urine Negative (Negative); Nitrite,Urine Negative (Negative); PH,Urine 6.5 pH Units (5.0-8.0); Protein,Urine Negative (Neg-Trace); Specific Gravity,Urine 1.018 (1.010-1.025); Urobilinogen,Urine Normal (Normal)
[2018-01-03] MEDS: Ibuprofen 400 MG TABLET PO PRN ×2 (03:22→20:40)
[2018-01-03] MEDS: *HR* Heparin 5,000 UNIT/ML VIAL SQ SCH ×3 (06:05→22:21)
[2018-01-03] MEDS: Aspirin 81 MG TAB.CHEW PO SCH (08:12)
[2018-01-03] MEDS: Gabapentin 300 MG CAPSULE PO SCH ×3 (08:12→20:40)
--- NOTE | 2018-01-03 14:46 | Internal Med Progress Note ---
Date of Encounter: 01/03/18 Time of Encounter: 14:52 - Assessment and plan (1) Chest pain Current Visit: Yes Status: Chronic Assessment and plan: has known CAD. Presented with chest pain. Serial troponin negative, EKG without acute ST changes. Discussed inpatient versus outpatient stress test with patient and he prefers to stay for stress test. He will likely be a 2 day stress which means testing will not be completely until Friday 01/05. Monitor on telemetry Qualifiers: Chest pain type: unspecified Qualified Code(s): R07.9 - Chest pain, unspecified (2) CAD (coronary artery disease) Current Visit: No Status: Chronic Assessment and plan: hx CABG and stents. 05/2017 [facility] with severe [place] 2 vessel CAD. S/p CABG with 1-2 patent bypass grafts. Occluded RCA with good collaterals from left coronary. With chest pain as noted above. Continue home ASA, statin, Qualifiers: Coronary Disease-Associated Artery/Lesion type: unspecified vessel or lesion type [place] vs. transplanted heart: [place] heart Associated angina: with unspecified angina Qualified Code(s): I25.119 - Atherosclerotic heart disease of [place] coronary artery with unspecified angina pectoris (3) CKD (chronic kidney disease) stage 3, GFR 30-59 ml/min Current Visit: No Status: Chronic Assessment and plan: per hx. renal function better than baseline. Avoid nephrotoxic agents as possible. (4) Diabetes mellitus Current Visit: No Status: Chronic Assessment and plan: Hgb A1c 6.8%. SSI. 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 BP controlled. Cont home BP medication Qualifiers: Hypertension type: essential hypertension Qualified Code(s): I10 - Essential (primary) hypertension (6) Bronchiolitis Current Visit: Yes Status: Acute Assessment and plan: chest CTA with patchy ground-glass opacities and subtle tree-in-bud opacities within the right upper and right lower lobes concerning for bronchiolitis. Asymptomatic. No shortness of breath, wheezing or cough. Hold on ATB at this time. Add PRN bronchodilators (7) DVT prophylaxis Current Visit: No Status: Acute Assessment and plan: heparin - Time Spent With Patient Total time spent is greater than 50% in coordination of care (as documented) at patient's floor/unit and/or counseling patient: - Subjective Interval history: Seen and examined at bedside. He is still complaining of central chest pain that radiates to left shoulder. He is aware of need to be nothing by mouth at midnight for stress test in the morning. - Constitutional Vitals: Temp Pulse Resp BP Pulse Ox 97.6 F 60 16 148/82 99 01/03/18 11:35 01/03/18 11:35 01/03/18 11:35 01/03/18 11:35 01/03/18 11:35 General appearance: Present: A&O X 3, morbidly obese, no acute distress - Head Head exam: Present: atraumatic, normocephalic - Eye Eye exam: Present: PERRL, conjuntiva pink, sclera anicteric Pupils: Present: PERRL - Neck Neck exam general surgery: Present: supple, trachea midline. Absent: lymphadenopathy - Respiratory Respiratory exam: Present: CTAB. Absent: accessory muscle use, rales, rhonchi, wheezes - Cardiovascular Cardiovascular exam: Present: RRR, +S1, +S2. Absent: diastolic murmur, gallop, rubs, systolic murmur - GI/Abdominal GI/Abdominal exam: Present: normal bowel sounds, soft, no peritoneal signs. Absent: distended, tenderness - Extremities Exam Extremities exam: Present: warm, radial pulses palpable and symmetrical. Absent : calf tenderness, cyanotic, pedal edema - Neurological Exam Neurological exam: Present: CN II-XII intact, oriented X3, no focal deficits. Absent: pronater drift, facial droop, speech deficit - Skin Skin exam: Present: dry, intact Internal Medicine: Result - Labs CBC & Chem 7: 01/02/18 05:28 01/02/18 05:28 Labs: Urine 01/03/18 Range/Units 02:26 Urine Color Yellow (Yellow) Urine Clarity Clear (Clear) Urine pH 6.5 (5.0-8.0) pH Units Ur Specific [place] 1.018 (1.010-1.025) Urine Protein Negative (Neg-Trace) mg/dL Urine Glucose (UA) Normal (Normal) mg/dL - ABG Interpretation ABG results: PT/INR, D-dimer PT 12.8 Seconds (9.4-12.1) H 01/02/18 03:17 D-Dimer 1165 ng/mLFEU (0-500) H 01/01/18 16:39 - Impressions Impressions Head CT 01/02/18 16:30 IMPRESSION: No acute intracranial abnormality. Patchy hypodensities in the periventricular and subcortical white matter, which are nonspecific, but may represent chronic small vessel ischemic change. D/ / Jae Hwang MD / Jae Hwang MD Interpreting Provider: Jae Hwang MD Consult Discharge Plan - Plan Referrals: Niko Knight MD [Primary Care Provider] -
[2018-01-03] MEDS: tiZANidine 4 MG TABLET PO SCH (16:51)
[2018-01-03] MEDS: traZODone 50 MG TABLET PO SCH (20:40)
[2018-01-03] MEDS: rOPINIRole 1 MG TABLET PO SCH (20:41)
[2018-01-04] MEDS: Acetaminophen 325 MG TABLET PO PRN ×2 (03:41→23:07)
[2018-01-04 05:02] LABS: Hematocrit 31.2 % (37.5-50.1); Hemoglobin 9.9 g/dL (12.9-16.9); Mean Corpuscular HGB Conc 31.7 g/dL (31.6-35.5); Mean Corpuscular Hemoglobin 29.7 pg (28.0-33.3); Mean Corpuscular Volume 93.7 fL (83.0-100.0); Red Blood Count 3.33 M/mcL (4.19-5.50)
[2018-01-04 05:04] LABS: Immature Platelets 4.6 % (1.1-6.1); Mean Platelet Volume 11.6 fL (9.4-12.4); Red Cell Distribution Width 13.7 % (11.5-14.5)
[2018-01-04 05:27] LABS: BUN/Creatinine Ratio 15 (6-26); Blood Urea Nitrogen 20 mg/dL (8-23); Calcium 9.1 mg/dL (8.6-10.3); Carbon Dioxide 28 mEq/L (23-29); Chloride 104 mEq/L (98-107); Glucose 175 mg/dL (70-105); Osmolality,Calculated 291 (280-300); Potassium 4.3 mEq/L (3.5-5.1); Sodium 137 mEq/L (136-145); eGFR For African Americans > 60 (> 60); eGFR For Non-African Americans 54 (> 60)
[2018-01-04] MEDS ORDERED: Regadenoson 0.4 MG/5 ML SYRINGE IVP ONE (05:56)
[2018-01-04] MEDS: *HR* Heparin 5,000 UNIT/ML VIAL SQ SCH (05:58)
[2018-01-04] MEDS: Gabapentin 300 MG CAPSULE PO SCH ×3 (09:00→21:01)
--- NOTE | 2018-01-04 09:21 | Electrocardiograph Report ---
[address] [address] Test Date: 2018-01-01 Pat Name: Ar Grewal Department: 103 Room: 3B45 Gender: M Guide Escort: : 1955 Requested By: Aleksander Dupree Order Number: [id number] Reading MD: Shayan Moseley Measurements Intervals [place] Rate: 65 P: 50 LA: 145 QRS: -27 QRSD: 150 T: 69 QT: 434 QTc: 445 Interpretive Statements SINUS RHYTHM WITH SINUS ARRHYTHMIA BORDERLINE LEFT AXIS DEVIATION RIGHT BUNDLE BRANCH BLOCK Electronically Signed On 01-04-2018 9:19:08 EDT by Shayan Moseley
--- NOTE | 2018-01-04 09:37 | Electrocardiograph Report ---
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
[2018-01-04] MEDS: Aspirin 81 MG TAB.CHEW PO SCH (12:38)
[2018-01-04] MEDS: *HR* OxyCODONE Immed Rel 5 MG TABLET PO PRN ×2 (12:38→21:00)
--- NOTE | 2018-01-04 14:15 | Internal Med Progress Note ---
Date of Encounter: 01/04/18 Time of Encounter: 14:07 - Assessment and plan (1) Chest pain Current Visit: Yes Status: Chronic Assessment and plan: has known CAD. Presented with chest pain. Serial troponin negative, EKG without acute ST changes. TTE with EF 60%, mild diastolic dysfunction, no wall motion abnormalities. 01/04/18 stress test negative for ischemia or infarct. Chest pain resolved. No further workup indicated at this time. Qualifiers: Chest pain type: unspecified Qualified Code(s): R07.9 - Chest pain, unspecified (2) CAD (coronary artery disease) Current Visit: No Status: Chronic Assessment and plan: hx CABG and stents. 05/2017 [facility] with severe [place] 2 vessel CAD. S/p CABG with 1-2 patent bypass grafts. Occluded RCA with good collaterals from left coronary. Continue home ASA, statin, Qualifiers: Coronary Disease-Associated Artery/Lesion type: unspecified vessel or lesion type [place] vs. transplanted heart: [place] heart Associated angina: with unspecified angina Qualified Code(s): I25.119 - Atherosclerotic heart disease of [place] coronary artery with unspecified angina pectoris (3) CKD (chronic kidney disease) stage 3, GFR 30-59 ml/min Current Visit: No Status: Chronic Assessment and plan: per hx. renal function better than baseline. Avoid nephrotoxic agents as possible. (4) Diabetes mellitus Current Visit: No Status: Chronic Assessment and plan: Hgb A1c 6.8%. SSI. Qualifiers: Diabetes mellitus type: type 2 Diabetes mellitus longterm insulin use: without longterm use Diabetes mellitus complication status: with kidney complications Diabetes mellitus complication detail: with chronic kidney disease Chronic kidney disease stage: stage 3 (moderate) Qualified Code(s): E11.22 - Type 2 diabetes mellitus with diabetic chronic kidney disease; N18.3 - Chronic kidney disease, stage 3 (moderate); N18.3 - Chronic kidney disease, stage 3 (moderate) (5) HTN (hypertension) Current Visit: No Status: Chronic Assessment and plan: per hx. BP controlled. Cont home BP medication Qualifiers: Hypertension type: essential hypertension Qualified Code(s): I10 - Essential (primary) hypertension (6) Bronchiolitis Current Visit: Yes Status: Acute Assessment and plan: chest CTA with patchy ground-glass opacities and subtle tree-in-bud opacities within the right upper and right lower lobes concerning for bronchiolitis. Asymptomatic. No shortness of breath, wheezing or cough. Hold on ATB at this time. Cont bronchodilators (7) Physical deconditioning Current Visit: Yes Status: Acute Assessment and plan: per patient report on 6/he is requesting PT/OT evaluation for possible SNF placement (8) DVT prophylaxis Current Visit: No Status: Acute Assessment and plan: heparin - Time Spent With Patient Total time spent is greater than 50% in coordination of care (as documented) at patient's floor/unit and/or counseling patient: - Subjective Interval history: Seen and examined at bedside. Says he feels better regarding chest pain but complains of overall chronic pain and weakness in his legs. He is requesting PT /OT evaluation for possible snf placement. Does not feel safe going home. - Constitutional Vitals: Temp Pulse Resp BP Pulse Ox 97.9 F 67 17 148/85 97 01/04/18 11:40 01/04/18 11:40 01/04/18 11:40 01/04/18 11:40 01/04/18 11:40 General appearance: Present: A&O X 3, morbidly obese, no acute distress - Head Head exam: Present: atraumatic, normocephalic - Eye Eye exam: Present: PERRL, conjuntiva pink, sclera anicteric Pupils: Present: PERRL - Neck Neck exam general surgery: Present: supple, trachea midline. Absent: lymphadenopathy - Respiratory Respiratory exam: Present: CTAB. Absent: accessory muscle use, rales, rhonchi, wheezes - Cardiovascular Cardiovascular exam: Present: RRR, +S1, +S2. Absent: diastolic murmur, gallop, rubs, systolic murmur - GI/Abdominal GI/Abdominal exam: Present: normal bowel sounds, soft, no peritoneal signs. Absent: distended, tenderness - Extremities Exam Extremities exam: Present: warm, radial pulses palpable and symmetrical. Absent : calf tenderness, cyanotic, pedal edema - Neurological Exam Neurological exam: Present: CN II-XII intact, oriented X3, no focal deficits. Absent: pronater drift, facial droop, speech deficit - Skin Skin exam: Present: dry, intact Internal Medicine: Result - Labs CBC & Chem 7: 01/04/18 04:23 01/04/18 04:23 Labs: Short CBC 01/04/18 Range/Units 04:23 WBC 3.3 L (4.3-11.1) K/mcL Hgb 9.9 L (12.9-16.9) g/dL Hct 31.2 L (37.5-50.1) % Plt Count 87 L (140-400) K/mcL [facility] 01/04/18 04:23 Sodium 137 Potassium 4.3 Chloride 104 Carbon Dioxide 28 BUN 20 Creatinine 1.33 H Glucose 175 H Calcium 9.1 - ABG Interpretation ABG results: PT/INR, D-dimer PT 12.8 Seconds (9.4-12.1) H 01/02/18 03:17 D-Dimer 1165 ng/mLFEU (0-500) H 01/01/18 16:39 - Impressions Impressions Echocardiogram 01/04/18 14:47 Impressions: LVEF 50-55%. Normal LV chamber size, wall thickness and function. Mild left ventricular diastolic dysfunction. Atypical septal motion consistent with post-operative status. Normal right ventricular structure and function. Mild tricuspid regurgitation. No pulmonary hypertension. A device lead was visualized in the right atrium and right ventricle. Negative agitated saline study for intra-cardiac shunting. Left Ventricular Wall Motion: Rest Echo Findings All wall segments showed normal motion. Findings: Study Quality * Technically adequate exam. ECG Findings * Normal sinus rhythm. Left Ventricle * LVEF 50-55%. * Normal LV chamber size, wall thickness and function. * Mild left ventricular diastolic dysfunction. * Atypical septal motion consistent with post-operative status. Right Ventricle * Normal right ventricular structure and function. Left Atrium * Mildly dilated left atrium. Right Atrium * Mildly dilated right atrium. Aortic Valve * Trileaflet aortic valve. * Mildly sclerotic aortic valve leaflets. * No aortic regurgitation. * No aortic stenosis. Mitral Valve * Normal mitral valve structure and function. * No mitral stenosis. * No mitral regurgitation. Tricuspid Valve * Normal tricuspid valve structure. * Mild tricuspid regurgitation. * No pulmonary hypertension. Pulmonic Valve * Pulmonic valve is not well visualized. * No pulmonic regurgitation. Aorta * Normally sized aortic root. Pericardium * The pericardium appears normal. IVC * Normal IVC dimensions and inspiratory collapse. Device lead * A device lead was visualized in the right atrium and right ventricle. Pulmonary Artery * Normal visualized portions of the main pulmonary artery. Consult Discharge Plan - Plan Referrals: Niko Knight MD [Primary Care Provider] -
[2018-01-04] MEDS: Ipratropium/Albuterol Neb 3 ML IH SCH ×2 (15:52→19:30)
[2018-01-04] MEDS: tiZANidine 4 MG TABLET PO SCH (17:55)
[2018-01-04] MEDS: traZODone 50 MG TABLET PO SCH (21:01)
[2018-01-04] MEDS: rOPINIRole 1 MG TABLET PO SCH (21:01)
[2018-01-04] MEDS: Ibuprofen 400 MG TABLET PO PRN (22:10)
[2018-01-05] MEDS: Ipratropium/Albuterol Neb 3 ML IH SCH ×7 (03:36→23:58)
[2018-01-05] MEDS: *HR* OxyCODONE Immed Rel 5 MG TABLET PO PRN ×3 (04:22→21:54)
[2018-01-05] MEDS: Aspirin 81 MG TAB.CHEW PO SCH (08:27)
[2018-01-05] MEDS: Ibuprofen 400 MG TABLET PO PRN ×2 (08:27→17:34)
[2018-01-05] MEDS: Gabapentin 300 MG CAPSULE PO SCH ×3 (08:28→21:51)
[2018-01-05 08:45] LABS: BUN/Creatinine Ratio 18 (6-26); Blood Urea Nitrogen 24 mg/dL (8-23); Calcium 9.1 mg/dL (8.6-10.3); Carbon Dioxide 24 mEq/L (23-29); Chloride 105 mEq/L (98-107); Glucose 181 mg/dL (70-105); Osmolality,Calculated 293 (280-300); Potassium 4.4 mEq/L (3.5-5.1); Sodium 137 mEq/L (136-145); eGFR For African Americans > 60 (> 60); eGFR For Non-African Americans 55 (> 60)
--- NOTE | 2018-01-05 10:37 | Internal Med Progress Note ---
Date of Encounter: 01/05/18 Time of Encounter: 10:34 - Assessment and plan (1) Diabetes mellitus Current Visit: No Status: Chronic Assessment and plan: Hgb A1c 6.8%. Accu-Cheks before meals at bedtime with sliding-scale insulin Qualifiers: Diabetes mellitus type: type 2 Diabetes mellitus fdc insulin use: without fdc use Diabetes mellitus complication status: with kidney complications Diabetes mellitus complication detail: with chronic kidney disease Chronic kidney disease stage: stage 3 (moderate) Qualified Code(s): E11.22 - Type 2 diabetes mellitus with diabetic chronic kidney disease; N18.3 - Chronic kidney disease, stage 3 (moderate) (2) DVT prophylaxis Current Visit: No Status: Acute Assessment and plan: heparin (3) CAD (coronary artery disease) Current Visit: No Status: Chronic Assessment and plan: hx CABG and stents. 05/2017 [facility] with severe [place] 2 vessel CAD. S/p CABG with 1-2 patent bypass grafts. Occluded RCA with good collaterals from left coronary. Continue home ASA, statin,-no chest pain or shortness of breath voiced at this time Qualifiers: Coronary Disease-Associated Artery/Lesion type: unspecified vessel or lesion type [place] vs. transplanted heart: [place] heart Associated angina: with unspecified angina Qualified Code(s): I25.119 - Atherosclerotic heart disease of [place] coronary artery with unspecified angina pectoris (4) Chest pain Current Visit: Yes Status: Chronic Assessment and plan: has known CAD. Presented with chest pain. Serial troponin negative, EKG without acute ST changes. TTE with EF 60%, mild diastolic dysfunction, no wall motion abnormalities. 01/04/18 stress test negative for ischemia or infarct. Chest pain resolved. No further workup indicated at this time.-No chest pain or chest of breath placed at this time. Continue with aspirin and statin Qualifiers: Chest pain type: unspecified Qualified Code(s): R07.9 - Chest pain, unspecified (5) CKD (chronic kidney disease) stage 3, GFR 30-59 ml/min Current Visit: No Status: Chronic Assessment and plan: per hx. renal function around baseline. Avoid nephrotoxic agents as possible. (6) HTN (hypertension) Current Visit: No Status: Chronic Assessment and plan: BP controlled. Cont home BP medication Qualifiers: Hypertension type: essential hypertension Qualified Code(s): I10 - Essential (primary) hypertension (7) Bronchiolitis Current Visit: Yes Status: Acute Assessment and plan: chest CTA with patchy ground-glass opacities and subtle tree-in-bud opacities within the right upper and right lower lobes concerning for bronchiolitis. Asymptomatic. No shortness of breath, wheezing or cough. SPO2 is stable Hold on ATB at this time. Cont bronchodilators (8) Physical deconditioning Current Visit: Yes Status: Acute Assessment and plan: per patient report he is requesting PT/OT evaluation for possible SNF placement - Time Spent With Patient Total time spent is greater than 50% in coordination of care (as documented) at patient's floor/unit and/or counseling patient: - Subjective Interval history: Patient seen abd examined at bedside. Denies any CP or SOB, does complain of L hip pain, admits to fall aprox one week ago. Does have bruising to lower extremity at multiple stages of healing . Will check Xray of L hip. Awaiting PT OT evaluation for possible placement - Constitutional Vitals: Temp Pulse Resp BP Pulse Ox 98.3 F 70 16 125/72 98 01/05/18 07:07 01/05/18 07:07 01/05/18 07:40 01/05/18 07:07 01/05/18 08:30 General appearance: Present: A&O X 3, morbidly obese, no acute distress - Head Head exam: Present: atraumatic, normocephalic - Eye Eye exam: Present: PERRL, conjuntiva pink, sclera anicteric Pupils: Present: PERRL - Neck Neck exam general surgery: Present: supple, trachea midline. Absent: lymphadenopathy - Respiratory Respiratory exam: Present: CTAB. Absent: accessory muscle use, rales, rhonchi, wheezes - Cardiovascular Cardiovascular exam: Present: RRR, +S1, +S2. Absent: diastolic murmur, gallop, rubs, systolic murmur - GI/Abdominal GI/Abdominal exam: Present: normal bowel sounds, soft, no peritoneal signs. Absent: distended, tenderness - Extremities Exam Extremities exam: Present: warm, radial pulses palpable and symmetrical. Absent : calf tenderness, cyanotic, pedal edema - Expanded Lower Extremities Exam Hip exam: Present: ecchymosis Lower Leg exam: Present: abrasion, ecchymosis - Neurological Exam Neurological exam: Present: CN II-XII intact, oriented X3, no focal deficits. Absent: pronater drift, facial droop, speech deficit - Skin Skin exam: Present: dry, intact Internal Medicine: Result - Labs CBC & Chem 7: 01/04/18 04:23 01/05/18 08:14 Labs: BMP 01/05/18 08:14 Sodium 137 Potassium 4.4 Chloride 105 Carbon Dioxide 24 BUN 24 H Creatinine 1.31 H Glucose 181 H Calcium 9.1 - ABG Interpretation ABG results: PT/INR, D-dimer PT 12.8 Seconds (9.4-12.1) H 01/02/18 03:17 D-Dimer 1165 ng/mLFEU (0-500) H 01/01/18 16:39 - Impressions Impressions Echocardiogram 01/04/18 14:47 Impressions: LVEF 50-55%. Normal LV chamber size, wall thickness and function. Mild left ventricular diastolic dysfunction. Atypical septal motion consistent with post-operative status. Normal right ventricular structure and function. Mild tricuspid regurgitation. No pulmonary hypertension. A device lead was visualized in the right atrium and right ventricle. Negative agitated saline study for intra-cardiac shunting. Left Ventricular Wall Motion: Rest Echo Findings All wall segments showed normal motion. Findings: Study Quality * Technically adequate exam. ECG Findings * Normal sinus rhythm. Left Ventricle * LVEF 50-55%. * Normal LV chamber size, wall thickness and function. * Mild left ventricular diastolic dysfunction. * Atypical septal motion consistent with post-operative status. Right Ventricle * Normal right ventricular structure and function. Left Atrium * Mildly dilated left atrium. Right Atrium * Mildly dilated right atrium. Aortic Valve * Trileaflet aortic valve. * Mildly sclerotic aortic valve leaflets. * No aortic regurgitation. * No aortic stenosis. Mitral Valve * Normal mitral valve structure and function. * No mitral stenosis. * No mitral regurgitation. Tricuspid Valve * Normal tricuspid valve structure. * Mild tricuspid regurgitation. * No pulmonary hypertension. Pulmonic Valve * Pulmonic valve is not well visualized. * No pulmonic regurgitation. Aorta * Normally sized aortic root. Pericardium * The pericardium appears normal. IVC * Normal IVC dimensions and inspiratory collapse. Device lead * A device lead was visualized in the right atrium and right ventricle. Pulmonary Artery * Normal visualized portions of the main pulmonary artery. Consult Discharge Plan - Plan Referrals: Niko Knight MD [Primary Care Provider] -
[2018-01-05] MEDS: tiZANidine 4 MG TABLET PO SCH (17:32)
[2018-01-05] MEDS: rOPINIRole 1 MG TABLET PO SCH (21:51)
[2018-01-05] MEDS: traZODone 50 MG TABLET PO SCH (21:52)
[2018-01-06] MEDS: Ibuprofen 400 MG TABLET PO PRN (01:15)
[2018-01-06] MEDS: Ipratropium/Albuterol Neb 3 ML IH SCH ×4 (03:46→15:40)
[2018-01-06 05:29] LABS: Basophils % 0.3 %; Eosinophils # 0.1 K/mcL (0.0-0.6); Hematocrit 29.4 % (37.5-50.1); Hemoglobin 9.3 g/dL (12.9-16.9); Immature Granulocytes % 0.7 % (0-4); Immature Platelets 4.4 % (1.1-6.1); Lymphocytes # 1.1 K/mcL (0.6-4.6); Lymphocytes % 35.3 %; Mean Corpuscular HGB Conc 31.6 g/dL (31.6-35.5); Mean Corpuscular Hemoglobin 30.1 pg (28.0-33.3); Mean Corpuscular Volume 95.1 fL (83.0-100.0); Mean Platelet Volume 11.1 fL (9.4-12.4); Monocytes # 0.2 K/mcL (0.0-1.3); Monocytes % 7.3 %; Neutrophils # 1.6 K/mcL (1.6-8.9); Red Blood Count 3.09 M/mcL (4.19-5.50); Red Cell Distribution Width 14.1 % (11.5-14.5); Segmented Neutrophils % 53.4 %
[2018-01-06 05:32] LABS: Platelet Count 78 K/mcL (140-400)
[2018-01-06 05:40] LABS: BUN/Creatinine Ratio 21 (6-26); Blood Urea Nitrogen 23 mg/dL (8-23); Carbon Dioxide 25 mEq/L (23-29); Chloride 105 mEq/L (98-107); Glucose 191 mg/dL (70-105); Osmolality,Calculated 293 (280-300); Potassium 4.4 mEq/L (3.5-5.1); Sodium 137 mEq/L (136-145); eGFR For African Americans > 60 (> 60); eGFR For Non-African Americans > 60 (> 60)
[2018-01-06] MEDS: *HR* OxyCODONE Immed Rel 5 MG TABLET PO PRN ×2 (05:40→12:01)
[2018-01-06] MEDS: Aspirin 81 MG TAB.CHEW PO SCH (08:16)
[2018-01-06] MEDS: Acetaminophen 325 MG TABLET PO PRN (08:16)
[2018-01-06] MEDS: Gabapentin 300 MG CAPSULE PO SCH ×2 (08:16→14:38)
--- NOTE | 2018-01-06 12:10 | Internal Med Progress Note ---
Date of Encounter: 01/06/18 Time of Encounter: 12:10 - Assessment and plan (1) Diabetes mellitus Current Visit: No Status: Chronic Qualifiers: Diabetes mellitus type: type 2 Diabetes mellitus assisted insulin use: without petroleum terminal plant operator use Diabetes mellitus complication status: with kidney complications Diabetes mellitus complication detail: with chronic kidney disease Chronic kidney disease stage: stage 3 (moderate) Qualified Code(s): E11.22 - Type 2 diabetes mellitus with diabetic chronic kidney disease; N18.3 - Chronic kidney disease, stage 3 (moderate) (2) DVT prophylaxis Current Visit: No Status: Acute (3) CAD (coronary artery disease) Current Visit: No Status: Chronic Qualifiers: Coronary Disease-Associated Artery/Lesion type: unspecified vessel or lesion type [place] vs. transplanted heart: [place] heart Associated angina: with unspecified angina Qualified Code(s): I25.119 - Atherosclerotic heart disease of [place] coronary artery with unspecified angina pectoris (4) Chest pain Current Visit: Yes Status: Chronic Qualifiers: Chest pain type: unspecified Qualified Code(s): R07.9 - Chest pain, unspecified (5) CKD (chronic kidney disease) stage 3, GFR 30-59 ml/min Current Visit: No Status: Chronic (6) HTN (hypertension) Current Visit: No Status: Chronic Qualifiers: Hypertension type: essential hypertension Qualified Code(s): I10 - Essential (primary) hypertension (7) Bronchiolitis Current Visit: Yes Status: Acute (8) Physical deconditioning Current Visit: Yes Status: Acute - Time Spent With Patient Total time spent is greater than 50% in coordination of care (as documented) at patient's floor/unit and/or counseling patient: - Subjective Interval history: Patient seen abd examined at bedside. Denies any CP or SOB, does complain of L hip pain, admits to fall aprox one week ago. Does have bruising to lower extremity at multiple stages of healing . Will check Xray of L hip. Awaiting PT OT evaluation for possible placement - Constitutional Vitals: Temp Pulse Resp BP Pulse Ox 98.3 F 76 17 107/64 98 01/06/18 10:42 01/06/18 10:42 01/06/18 11:12 01/06/18 10:42 01/06/18 11:12 General appearance: Present: A&O X 3, morbidly obese, no acute distress Internal Medicine: Result - Labs CBC & Chem 7: 01/06/18 04:52 01/06/18 04:52 Labs: Short CBC 01/06/18 Range/Units 04:52 WBC 3.0 L (4.3-11.1) K/mcL Hgb 9.3 L (12.9-16.9) g/dL Hct 29.4 L (37.5-50.1) % Plt Count 78 L (140-400) K/mcL Neutrophils # 1.6 (1.6-8.9) K/mcL BMP 01/06/18 04:52 Sodium 137 Potassium 4.4 Chloride 105 Carbon Dioxide 25 BUN 23 Creatinine 1.10 Glucose 191 H Calcium 9.0 - ABG Interpretation ABG results: PT/INR, D-dimer PT 12.8 Seconds (9.4-12.1) H 01/02/18 03:17 D-Dimer 1165 ng/mLFEU (0-500) H 01/01/18 16:39 - Impressions Impressions Hip X-Ray 01/05/18 10:38 IMPRESSION: Postoperative changes with no complication. D/ / 01/05/2018 15:33:59 Mayito Ogden MD / [facility] Interpreting Provider: Mayito Ogden MD Consult Discharge Plan - Plan Referrals: Niko Knight MD [Primary Care Provider] -
[2018-01-06] MEDS ORDERED: Ondansetron 4 MG/2 ML VIAL IVP PRN (12:16)
--- NOTE | 2018-01-06 15:17 | Discharge Summary ---
- NOTES TO OUTPATIENT PROVIDER Notes to Outpatient Provider: Presented with chest pains trespass completed with no ischemia or infarct Orders not resulted at time of discharge: Pending orders 01/03/18 14:48 NM tomas perf SPECT multi [NM] Routine Date of Encounter: 01/06/18 Time of Encounter: 15:13 - Discharge Diagnosis (1) Diabetes mellitus Priority: Secondary Status: Chronic Qualifiers: Diabetes mellitus type: type 2 Diabetes mellitus nursing home insulin use: without watermelon inspector use Diabetes mellitus complication status: with kidney complications Diabetes mellitus complication detail: with chronic kidney disease Chronic kidney disease stage: stage 3 (moderate) Qualified Code(s): E11.22 - Type 2 diabetes mellitus with diabetic chronic kidney disease; N18.3 - Chronic kidney disease, stage 3 (moderate) (2) CAD (coronary artery disease) Priority: Secondary Status: Chronic Qualifiers: Coronary Disease-Associated Artery/Lesion type: unspecified vessel or lesion type [place] vs. transplanted heart: [place] heart Associated angina: with unspecified angina Qualified Code(s): I25.119 - Atherosclerotic heart disease of [place] coronary artery with unspecified angina pectoris (3) Chest pain Priority: Primary Status: Chronic Qualifiers: Chest pain type: unspecified Qualified Code(s): R07.9 - Chest pain, unspecified (4) CKD (chronic kidney disease) stage 3, GFR 30-59 ml/min Priority: Secondary Status: Chronic (5) HTN (hypertension) Priority: Secondary Status: Chronic Qualifiers: Hypertension type: essential hypertension Qualified Code(s): I10 - Essential (primary) hypertension (6) Bronchiolitis Priority: Secondary Status: Acute (7) Physical deconditioning Priority: Secondary Status: Acute Hospital course: Mr. Grewal is a 62 year old male past medical history of CAD status post CABG pacemaker hyperkalemia and diabetes diastolic heart failure cirrhosis pancytopenia rhabdomyolysis CK D stage III thrombocytopenia O a of left hip hypertension and hyperlipidemia. Patient presented to the emergency department with complaints of midsternal chest pressure radiating to his left upper extremity with associated symptoms of diaphoresis patient did undergo a LHC with severe needed two-vessel CAD. Serial troponins were negative EKG with no acute ST changes patient did undergo a 2 day cardiac stress test which did reveal no ischemia or infarct. Patient was requesting evaluation by physical therapy since he has been having difficulty ambulating frequent falls and pain in his left hip. X-ray left hip was completed which was within normal limits. Physical therapy did evaluate the patient recommending inpatient swing bed. [facility] I advised patient to follow-up with primary care provider as outpatient since this provider knows him best and can adjust medications accordingly. Patient verbalized understanding. Az patient is here today with a stable and ready for discharge. Discharge discussed with: patient - Time Spent with Patient Total time spent providing and/or coordinating discharge services: - Discharge Medications Home Medications: Levothyroxine [Synthroid] 50 mcg PO QAM 04/08/15 [History] Omeprazole [PriLOSEC] 40 mg PO BID 04/08/15 [History] Promethazine [Phenergan] 25 mg PO TID PRN 12/03/15 [History] Tizanidine HCl 4 mg PO QPM 08/03/16 [History] Aspirin 81 mg PO DAILY #30 tab.chew 08/06/16 [Rx] Atorvastatin [Lipitor] 40 mg PO HS 03/17/17 [History] Ropinirole HCl [Requip] 4 mg PO HS 05/01/17 [History] Trazodone HCl 100 - 200 mg PO HS 05/01/17 [History] Gabapentin [Neurontin] 900 mg PO TID #30 capsule 07/02/17 [Rx] OxyCODONE Immed Rel [Roxicodone 10 MG] 10 mg PO QID PRN 01/01/18 [History] Pantoprazole Sodium 40 mg PO DAILY 01/01/18 [History] Allergies/Adverse Reactions: 3 Allergy/AdvReac Type Severity Reaction Status Date / Time morphine Allergy Intermediate Hives Verified 06/10/17 10:53 codeine Allergy Mild Itching Verified 06/10/17 10:53 Penicillins AdvReac Severe COMA Verified 06/10/17 10:53 nitroglycerin AdvReac Mild LOW BLOOD Verified 06/10/17 10:53 PRESSURE NITRATES Allergy Mild Itching Uncoded 06/10/17 10:53 NUBAIN Allergy Mild Itching Uncoded 06/10/17 10:53 Date of admission: 01/01/18 19:22 Primary care physician: Niko Knight MD Consults: 01/04/18 10:40 Consult to Occupational Therapy [CONS] Routine Comment: Evaluate, develop and implement POC Reason for Consult: Patient requesting eval for rehab Does patient have active BEDREST order?: No Is patient medically & hemodynamically stable?: Yes Patient assessed for mobility or mobilized this visit?: No Consult to Physical Therapy [CONS] Routine Comment: Evaluate, develop and implement POC Reason for Consult: Patient requesting eval for rehab Does patient have active BEDREST order?: No Is patient medically & hemodynamically stable?: Yes Patient assessed for mobility or mobilized this visit?: No 01/04/18 12:03 Consult to School Guidance Counselor [CONS] Routine Reason for SW Consult: patient wanting to go to rehab Discharging clinician: Lacey Thompson Anticipated date of discharge: 01/06/18 - Constitutional Vitals: Temp Pulse Resp BP Pulse Ox 98.3 F 76 17 107/64 98 01/06/18 10:42 01/06/18 10:42 01/06/18 11:12 01/06/18 10:42 01/06/18 11:12 General appearance: Present: A&O X 3, morbidly obese, no acute distress - Head Head exam: Present: atraumatic, normocephalic - Eye Eye exam: Present: PERRL, conjuntiva pink, sclera anicteric Pupils: Present: PERRL - Neck Neck exam general surgery: Present: supple, trachea midline. Absent: lymphadenopathy - Respiratory Respiratory exam: Present: CTAB. Absent: accessory muscle use, rales, rhonchi, wheezes - Cardiovascular Cardiovascular exam: Present: RRR, +S1, +S2. Absent: diastolic murmur, gallop, rubs, systolic murmur - GI/Abdominal GI/Abdominal exam: Present: normal bowel sounds, soft, no peritoneal signs. Absent: distended, tenderness - Extremities Exam Extremities exam: Present: warm, radial pulses palpable and symmetrical. Absent : calf tenderness, cyanotic, pedal edema - Neurological Exam Neurological exam: Present: CN II-XII intact, oriented X3, no focal deficits. Absent: pronater drift, facial droop, speech deficit - Skin Skin exam: Present: dry, intact - Patient Status Disposition: Transfer Hospital Swing Bed Condition: Good Functional capacity at discharge: uses cane/walker Overall status at discharge: patient is back to baseline - Discharge Instructions Follow Up With: Niko Knight MD [Primary Care Provider] - Forms: ED Satisfaction Letter - Diet and Activity Activity: as per physical therapy Diet: advance to your usual diet
--- NOTE | 2018-01-06 15:39 | Physician Discharge Referral ---
ExtendedCare Referral Info Transfer To: [facility] Provider in Charge: Lacey Thompson Provider in Charge after Transfer: PCP Institutional Level of Care: Skilled - Diagnosis (1) Diabetes mellitus Priority: Secondary Status: Chronic (2) CAD (coronary artery disease) Priority: Secondary Status: Chronic (3) Chest pain Priority: Primary Status: Chronic (4) CKD (chronic kidney disease) stage 3, GFR 30-59 ml/min Priority: Secondary Status: Chronic (5) HTN (hypertension) Priority: Secondary Status: Chronic (6) Bronchiolitis Priority: Secondary Status: Acute (7) Physical deconditioning Priority: Secondary Status: Acute Prognosis: Good Aware of Diagnosis: Patient Aware of Prognosis: Patient - Transfer Medications Home Medications: Levothyroxine [Synthroid] 50 mcg PO QAM 04/08/15 [History] Omeprazole [PriLOSEC] 40 mg PO BID 04/08/15 [History] Promethazine [Phenergan] 25 mg PO TID PRN 12/03/15 [History] Tizanidine HCl 4 mg PO QPM 08/03/16 [History] Aspirin 81 mg PO DAILY #30 tab.chew 08/06/16 [Rx] Atorvastatin [Lipitor] 40 mg PO HS 03/17/17 [History] Ropinirole HCl [Requip] 4 mg PO HS 05/01/17 [History] Trazodone HCl 100 - 200 mg PO HS 05/01/17 [History] Gabapentin [Neurontin] 900 mg PO TID #30 capsule 07/02/17 [Rx] OxyCODONE Immed Rel [Roxicodone 10 MG] 10 mg PO QID PRN 01/01/18 [History] Pantoprazole Sodium 40 mg PO DAILY 01/01/18 [History] Allergies/Adverse Reactions: 3 Allergy/AdvReac Type Severity Reaction Status Date / Time morphine Allergy Intermediate Hives Verified 06/10/17 10:53 codeine Allergy Mild Itching Verified 06/10/17 10:53 Penicillins AdvReac Severe COMA Verified 06/10/17 10:53 nitroglycerin AdvReac Mild LOW BLOOD Verified 06/10/17 10:53 PRESSURE NITRATES Allergy Mild Itching Uncoded 06/10/17 10:53 NUBAIN Allergy Mild Itching Uncoded 06/10/17 10:53 - Respiratory Orders Smoking Cessation: Smoking cessation has been advised. For more information, call the [place] Tobacco Quit Line at 3-535-PQEU-NOW. - Advance Directives Code Status: DNR-Arrest - Rehabiliation Orders Rehab Potential: Good Rehab Orders: Evaluation for Physical Therapy, Evaluation for Occupational Therapy - Diet Orders Cardiac CERTIFICATION: I certify that the transfer of the above named patient to an Extended Care Facility is necessary for the continuing treatment of the diagnosis listed. The above information is true and accurate reflection of patient's current condition. Confidential - Redisclosure prohibited without a patient's written consent.
[2018-01-06 16:06] VITALS: BP 102/49
== END 2018-01-06 17:55 ==
LOC: 3BNU 16:15 → EMEROO 16:15 → 3BNU 20:17
PROVIDERS: ADMIT Pediatrics; ATTEND Pediatrics

== ENCOUNTER 2018-04-08 16:08 | Observation (INO) ==
[2018-04-08] MEDS ORDERED: Aspirin 81 MG TAB.CHEW PO ONE (16:25)
--- NOTE | 2018-04-08 16:27 | Emergency Department Note ---
Disposition Clinical Impression: Chest pain, OLEG (acute kidney injury) Disposition: Admitted As Inpatient Condition: Fair Referrals: Niko Knight MD [Primary Care Provider] - General Adult HPI - General Chief complaint: ED Chest Pain Stated complaint: CP Time Seen by Provider: 04/08/18 16:16 - History of Present Illness Pain Scale: 9 - Related Data Home Medications Medication Instructions Recorded Confirmed Omeprazole [PriLOSEC] 40 mg PO BID 04/08/15 04/08/18 Promethazine [Phenergan] 25 mg PO TID PRN 12/03/15 04/08/18 Tizanidine HCl 4 mg PO QPM 08/03/16 04/08/18 Atorvastatin [Lipitor] 40 mg PO HS 03/17/17 04/08/18 Ropinirole HCl [Requip] 4 mg PO HS 05/01/17 04/08/18 Pantoprazole Sodium 40 mg PO DAILY 01/01/18 04/08/18 Levothyroxine [Synthroid] 100 mcg PO QAM 04/08/18 04/08/18 traZODone [TraZODone] 100 - 200 mg PO HS 04/08/18 04/08/18 Previous Rx's Medication Instructions Recorded Aspirin 81 mg PO DAILY #30 tab.chew 08/06/16 Gabapentin [Neurontin] 900 mg PO TID #30 capsule 07/02/17 OxyCODONE Immed Rel [Roxicodone 10 10 mg PO QID PRN 2 Days #8 tab 01/06/18 MG] Allergies Allergy/AdvReac Type Severity Reaction Status Date / Time morphine Allergy Intermediate Hives Verified 06/10/17 10:53 codeine Allergy Mild Itching Verified 06/10/17 10:53 Penicillins AdvReac Severe COMA Verified 06/10/17 10:53 nitroglycerin AdvReac Mild LOW BLOOD Verified 06/10/17 10:53 PRESSURE NITRATES Allergy Mild Itching Uncoded 06/10/17 10:53 NUBAIN Allergy Mild Itching Uncoded 06/10/17 10:53 Past Medical History - Past Medical History Medical history: Reports: cirrhosis, CHF, coronary artery disease, CVA, diabetes , GERD, hypertension, myocardial infarction, thyroid disease, other Surgical history: Reports: appendectomy, cholecystectomy, coronary bypass (CABG) , orthopedic, other, pacemaker/AICD Psychiatric history: Reports: no psych history - Social History Smoking Status: Never smoker Smokeless Tobacco Status: No Alcohol use: Reports: none Drug use: Reports: none Course Vital Signs Temperature 98.6 F 04/08/18 16:13 Pulse Rate 75 04/08/18 16:13 Respiratory Rate 16 04/08/18 16:13 Blood Pressure 90/46 04/08/18 16:13 O2 Sat by Pulse Oximetry 97 04/08/18 16:13 Temperature 98.3 F 04/08/18 19:09 Pulse Rate 50 04/08/18 19:09 Respiratory Rate 17 04/08/18 19:09 Blood Pressure 143/80 04/08/18 19:09 O2 Sat by Pulse Oximetry 100 04/08/18 19:09 Oxygen Delivery Oxygen Delivery Room Air Medical Decision Making - Lab Data Result diagrams: 04/08/18 16:43 04/08/18 16:43 Lab Results 04/08/18 04/08/18 04/08/18 Range/Units 16:43 16:43 19:18 WBC 4.8 (4.3-11.1) K/mcL RBC 3.86 L (4.19-5.50) M/mcL Hgb 11.1 L (12.9-16.9) g/dL Hct 34.8 L (37.5-50.1) % MCV 90.2 (83.0-100.0) fL MCH 28.8 (28.0-33.3) pg MCHC 31.9 (31.6-35.5) g/dL RDW 13.6 (11.5-14.5) % Plt Count 125 L (140-400) K/mcL MPV 10.7 (9.4-12.4) fL Immature Gran % 0.4 (0-4) % Seg Neutrophils % 65.9 % Lymphocytes % 24.8 % Monocytes % 6.6 % Eosinophils % 1.9 % Basophils % 0.4 % Neutrophils # 3.2 (1.6-8.9) K/mcL Lymphocytes # 1.2 (0.6-4.6) K/mcL Monocytes # 0.3 (0.0-1.3) K/mcL Eosinophils # 0.1 (0.0-0.6) K/mcL Basophils # 0.0 (0.0-0.2) K/mcL Sodium 136 (136-145) mEq/L Potassium 4.8 (3.5-5.1) mEq/L Chloride 103 (98-107) mEq/L Carbon Dioxide 25 (23-29) mEq/L BUN 21 (8-23) mg/dL Creatinine 1.51 H (0.70-1.30) mg/dL Est GFR ( Amer) 57 L (> 60) Est GFR (Non-Af Amer) 47 L (> 60) BUN/Creatinine Ratio 14 (6-26) Glucose 170 H (70-105) mg/dL POC Glucose (70-99) mg/dL Est Mean Plasma Glucose 151 mg/dl Hemoglobin A1c 6.9 H ( - 5.6) % Calculated Osmolality 289 (280-300) Lactic Acid (0.5-2.2) mmol/L Calcium 10.0 (8.6-10.3) mg/dL Troponin I < 0.03 (< 0.04) ng/mL 04/08/18 04/08/18 Range/Units 19:18 20:02 WBC (4.3-11.1) K/mcL RBC (4.19-5.50) M/mcL Hgb (12.9-16.9) g/dL Hct (37.5-50.1) % MCV (83.0-100.0) fL MCH (28.0-33.3) pg MCHC (31.6-35.5) g/dL RDW (11.5-14.5) % Plt Count (140-400) K/mcL MPV (9.4-12.4) fL Immature Gran % (0-4) % Seg Neutrophils % % Lymphocytes % % Monocytes % % Eosinophils % % Basophils % % Neutrophils # (1.6-8.9) K/mcL Lymphocytes # (0.6-4.6) K/mcL Monocytes # (0.0-1.3) K/mcL Eosinophils # (0.0-0.6) K/mcL Basophils # (0.0-0.2) K/mcL Sodium (136-145) mEq/L Potassium (3.5-5.1) mEq/L Chloride (98-107) mEq/L Carbon Dioxide (23-29) mEq/L BUN (8-23) mg/dL Creatinine (0.70-1.30) mg/dL Est GFR ( Amer) (> 60) Est GFR (Non-Af Amer) (> 60) BUN/Creatinine Ratio (6-26) Glucose (70-105) mg/dL POC Glucose 120 H (70-99) mg/dL Est Mean Plasma Glucose mg/dl Hemoglobin A1c ( - 5.6) % Calculated Osmolality (280-300) Lactic Acid 1.0 (0.5-2.2) mmol/L Calcium (8.6-10.3) mg/dL Troponin I (< 0.04) ng/mL Attestation Statement - Attestation Attestation: I examined this patient and my medical decision-making was reviewed with the Resident Physician. I agree with the documented findings, disposition and treatment plan as described except to the extent set forth below. Patient resisted ED with chief complaint of chest pain. Left-sided radiating to the right arm. Onset at noon while he was taking a shower. Patient has a history of coronary disease with a bypass surgery in 1989. On examination he is in no acute distress. Lungs clear heart regular. Noted midline sternotomy scar. Plan. Cardiac workup. EKG is paced at 50. Patient's workup is negative. X-ray clear. Patient refused nitroglycerin. Admitted to medicine for further cardiac workup. Chest X-Ray 04/08/18 16:25 IMPRESSION: No acute pulmonary finding. D/ / Aleksander Shearer MD / Aleksander Shearer MD Interpreting Provider: Aleksander Shearer MD
[2018-04-08] MEDS ORDERED: 0.9 % Sodium Chloride 500 ML IVC ONE (16:29)
[2018-04-08] MEDS ORDERED: Nitroglycerin 0.4 MG TAB.SUBL SL PRN (16:29)
--- NOTE | 2018-04-08 16:47 | Emergency Department Note ---
Disposition Clinical Impression: OLEG (acute kidney injury) Chest pain Qualifiers: Chest pain type: unspecified Qualified Code(s): R07.9 - Disposition: Admitted As Inpatient Condition: Fair Time of Disposition: 17:41 General Adult HPI - General Chief complaint: ED Chest Pain Stated complaint: CP Time Seen by Provider: 04/08/18 16:16 Source: patient Limitations: no limitations Nursing Notes Reviewed: Yes Vital Signs Reviewed: Yes - History of Present Illness HPI Narrative: Patient is a 62-year-old male presented with chest pain. He has past medical history significant for CAD status post CABG, MD, hypertension, CHF, hyperlipidemia, pacemaker placement. Patient states that yesterday he began to have episodes of mid to left-sided chest pain described as a pressure and tightness with radiation into the left arm described as a numbness and tingling down the fingertips, he does not have radiation to the neck or back. He states that the episodes last for a few minutes at a time, resolve on their own. He also has progressive shortness of breath. He does not take nitroglycerin glycerin as he states he has hypotensive episodes with this. He denies exertional component to this. He was diaphoretic yesterday and this morning when he had these episodes. He has had constant chest pain for the past 5 hours. He also has associated diaphoresis and generalized abdominal pain. He has had some nausea, no vomiting or diarrhea. He denies recent fever or chills. He denies any recent illness. He has not seen a conference planner for multiple years. Pain Scale: 9 - Related Data Home Medications Medication Instructions Recorded Confirmed Omeprazole [PriLOSEC] 40 mg PO BID 04/08/15 04/08/18 Promethazine [Phenergan] 25 mg PO TID PRN 12/03/15 04/08/18 Tizanidine HCl 4 mg PO QPM 08/03/16 04/08/18 Atorvastatin [Lipitor] 40 mg PO HS 03/17/17 04/08/18 Ropinirole HCl [Requip] 4 mg PO HS 05/01/17 04/08/18 Pantoprazole Sodium 40 mg PO DAILY 01/01/18 04/08/18 Levothyroxine [Synthroid] 100 mcg PO QAM 04/08/18 04/08/18 traZODone [TraZODone] 100 - 200 mg PO HS 04/08/18 04/08/18 Previous Rx's Medication Instructions Recorded Aspirin 81 mg PO DAILY #30 tab.chew 08/06/16 Gabapentin [Neurontin] 900 mg PO TID #30 capsule 07/02/17 OxyCODONE Immed Rel [Roxicodone 10 10 mg PO QID PRN 2 Days #8 tab 01/06/18 MG] Allergies Allergy/AdvReac Type Severity Reaction Status Date / Time morphine Allergy Intermediate Hives Verified 06/10/17 10:53 codeine Allergy Mild Itching Verified 06/10/17 10:53 Penicillins AdvReac Severe COMA Verified 06/10/17 10:53 nitroglycerin AdvReac Mild LOW BLOOD Verified 06/10/17 10:53 PRESSURE NITRATES Allergy Mild Itching Uncoded 06/10/17 10:53 NUBAIN Allergy Mild Itching Uncoded 06/10/17 10:53 All systems ED: reviewed and negative except as stated. Review of Systems: As Per HPI Constitutional: Denies: fever, chills ENT ED: Denies: ear pain, throat pain, dental pain, hearing loss, epistaxis, congestion, dysphagia Cardiovascular: Reports: chest pain. Denies: palpitations, dyspnea on exertion , syncope Respiratory: Reports: dyspnea. Denies: cough, wheezes Gastrointestinal: Reports: abdominal pain, nausea, vomiting. Denies: diarrhea, constipation, hematemesis Genitourinary: Denies: urgency, dysuria, frequency, hematuria Musculoskeletal: Denies: back pain Integumentary: Denies: rash Neurological: Denies: headache, weakness, numbness, paresthesias, confusion Endocrine: Denies: fatigue Past Medical History - Past Medical History Medical history: Reports: cirrhosis, CHF, coronary artery disease, CVA, diabetes , GERD, hypertension, myocardial infarction, thyroid disease, other Surgical history: Reports: appendectomy, cholecystectomy, coronary bypass (CABG) , orthopedic, other, pacemaker/AICD Psychiatric history: Reports: no psych history - Social History Smoking Status: Never smoker Smokeless Tobacco Status: No Alcohol use: Reports: none Drug use: Reports: none Physical Exam - General Limitations: no limitations General appearance: alert - Head Head exam: atraumatic, normocephalic, normal inspection - Eye Eye exam: Present: normal appearance, PERRL, EOMI - ENT ENT exam: normal exam, normal oropharynx, mucous membranes moist - Neck Neck exam: Present: normal inspection, full ROM, trachea midline - Chest Chest inspection: Present: normal inspection, symmetric chest wall rise - Respiratory Respiratory exam: Present: normal lung sounds bilaterally - Cardiovascular Cardiovascular exam: Present: regular rate, normal rhythm, normal heart sounds - Abdominal Exam Abdominal exam: Present: soft, tenderness (Diffusely tender throughout). Absent : distention, guarding, rebound, rigidity - Extremities Exam Extremities exam: Present: normal inspection, full ROM, normal capillary refill. Absent: tenderness, pedal edema - Expanded Lower Extremity Exam Neurovascular/Tendon exam: Absent: motor deficit, sensory deficit, tendon deficit - Back Exam Back exam: Present: normal inspection, full ROM. Absent: tenderness - Neurological Exam Neurological exam: Present: alert, oriented X3 - Psychiatric Psychiatric exam: Present: normal affect, normal mood - Skin Skin exam: Present: warm, dry, intact, normal color Course Course Narrative: Border ACS rule out laboratory work. Vital Signs Temperature 98.6 F 04/08/18 16:13 Pulse Rate 75 04/08/18 16:13 Respiratory Rate 16 04/08/18 16:13 Blood Pressure 90/46 04/08/18 16:13 O2 Sat by Pulse Oximetry 97 04/08/18 16:13 Temperature 98.3 F 04/08/18 19:09 Pulse Rate 50 04/08/18 19:09 Respiratory Rate 17 04/08/18 19:09 Blood Pressure 143/80 04/08/18 19:09 O2 Sat by Pulse Oximetry 100 04/08/18 19:09 Oxygen Delivery Oxygen Delivery Room Air Medical Decision Making - [facility] Narrative Medical decision making narrative: Patient is a 62-year-old male presenting with chest pain. Patient has past medical history significant for CAD status post CABG in 1989, hypertension, hyperlipidemia, COPD and CHF. Patient has had chest pain intermittently for the past 2 days, last episode being constant for the last 5 hours. Nonexertional component. With associated nausea and diaphoresis. Patient was seen on it and evaluated on arrival. Physical exam reveals a nontoxic- appearing male, is slightly hypotensive at 100/80 at bedside, does not appear tachycardic. Pulses were equal in the radial, femoral and distal pedal pulses. Chest x-ray is negative for acute intracranial or pulmonary process, no pneumonia was noted. Laboratory evaluation reveals unremarkable CBC, continued elevation of creatinine at 1.62, appears to be slightly above baseline. Troponin is within normal limits. EKG shows no acute ischemic changes. Patient was offered nitroglycerin, however he states he will not take this at this point in time as it drops his blood pressure. He did take aspirin this morning. Did give 500 mL bolus of fluid for oleg. At this point in time, with continued chest pain on examination. Will discuss patient with hospitalist to admit the patient for ACS rule out. Discussed this with the patient is seen under and he is in understanding. Spoke with hospitalist at 1740, he states that he will admit patient at this point in time for further observation and recommendations. - Medical Records Medical records reviewed: Yes I reviewed the patient's medical records. - Lab Data Lab results reviewed: Yes I reviewed the patient's lab results. Result diagrams: 04/08/18 16:43 04/08/18 16:43 Lab Results 04/08/18 04/08/18 04/08/18 Range/Units 16:43 16:43 19:18 WBC 4.8 (4.3-11.1) K/mcL RBC 3.86 L (4.19-5.50) M/mcL Hgb 11.1 L (12.9-16.9) g/dL Hct 34.8 L (37.5-50.1) % MCV 90.2 (83.0-100.0) fL MCH 28.8 (28.0-33.3) pg MCHC 31.9 (31.6-35.5) g/dL RDW 13.6 (11.5-14.5) % Plt Count 125 L (140-400) K/mcL MPV 10.7 (9.4-12.4) fL Immature Gran % 0.4 (0-4) % Seg Neutrophils % 65.9 % Lymphocytes % 24.8 % Monocytes % 6.6 % Eosinophils % 1.9 % Basophils % 0.4 % Neutrophils # 3.2 (1.6-8.9) K/mcL Lymphocytes # 1.2 (0.6-4.6) K/mcL Monocytes # 0.3 (0.0-1.3) K/mcL Eosinophils # 0.1 (0.0-0.6) K/mcL Basophils # 0.0 (0.0-0.2) K/mcL Sodium 136 (136-145) mEq/L Potassium 4.8 (3.5-5.1) mEq/L Chloride 103 (98-107) mEq/L Carbon Dioxide 25 (23-29) mEq/L BUN 21 (8-23) mg/dL Creatinine 1.51 H (0.70-1.30) mg/dL Est GFR ( Amer) 57 L (> 60) Est GFR (Non-Af Amer) 47 L (> 60) BUN/Creatinine Ratio 14 (6-26) Glucose 170 H (70-105) mg/dL POC Glucose (70-99) mg/dL Est Mean Plasma Glucose 151 mg/dl Hemoglobin A1c 6.9 H ( - 5.6) % Calculated Osmolality 289 (280-300) Lactic Acid (0.5-2.2) mmol/L Calcium 10.0 (8.6-10.3) mg/dL Troponin I < 0.03 (< 0.04) ng/mL 04/08/18 04/08/18 Range/Units 19:18 20:02 WBC (4.3-11.1) K/mcL RBC (4.19-5.50) M/mcL Hgb (12.9-16.9) g/dL Hct (37.5-50.1) % MCV (83.0-100.0) fL MCH (28.0-33.3) pg MCHC (31.6-35.5) g/dL RDW (11.5-14.5) % Plt Count (140-400) K/mcL MPV (9.4-12.4) fL Immature Gran % (0-4) % Seg Neutrophils % % Lymphocytes % % Monocytes % % Eosinophils % % Basophils % % Neutrophils # (1.6-8.9) K/mcL Lymphocytes # (0.6-4.6) K/mcL Monocytes # (0.0-1.3) K/mcL Eosinophils # (0.0-0.6) K/mcL Basophils # (0.0-0.2) K/mcL Sodium (136-145) mEq/L Potassium (3.5-5.1) mEq/L Chloride (98-107) mEq/L Carbon Dioxide (23-29) mEq/L BUN (8-23) mg/dL Creatinine (0.70-1.30) mg/dL Est GFR ( Amer) (> 60) Est GFR (Non-Af Amer) (> 60) BUN/Creatinine Ratio (6-26) Glucose (70-105) mg/dL POC Glucose 120 H (70-99) mg/dL Est Mean Plasma Glucose mg/dl Hemoglobin A1c ( - 5.6) % Calculated Osmolality (280-300) Lactic Acid 1.0 (0.5-2.2) mmol/L Calcium (8.6-10.3) mg/dL Troponin I (< 0.04) ng/mL - Radiology Data Radiology results reviewed: Yes I reviewed the patient's radiology results. Chest X-Ray 04/08/18 16:25 IMPRESSION: No acute pulmonary finding. D/ / Aleksander Shearer MD / Aleksander Shearer MD Interpreting Provider: Aleksander Shearer MD - EKG Data EKG #1 EKG attestation: Yes I reviewed and interpreted this EKG. EKG results narrative: EKG performed at 1623 with a ventricular rate of 50, atrial paced rhythm with continued right bundle branch block, no acute ST segment changes or T-wave changes, unchanged from previous in December 2017. [place] - [place] Situation: Demographics, MOA Background: Presenting Complaint, Relevant PMH, Meds, & Allergies Assessment: Vital Signs, Course and respsone to treatment, Exam Concerns, Patient/Family Expectation, Pertinant Lab Results, Outstanding Labs Recommendation: Barrier(s) to disposition, Recommendation based on pending studies, treatments, or consults Kinga Report Given to: hospitalist Kinga Jiménez Time: 17:42 (accepted)
[2018-04-08] MEDS ORDERED: Ondansetron 4 MG/2 ML VIAL IVP ONE (17:11)
[2018-04-08 17:13] LABS: Basophils % 0.4 %; Eosinophils # 0.1 K/mcL (0.0-0.6); Eosinophils % 1.9 %; Hematocrit 34.8 % (37.5-50.1); Hemoglobin 11.1 g/dL (12.9-16.9); Immature Granulocytes % 0.4 % (0-4); Lymphocytes # 1.2 K/mcL (0.6-4.6); Lymphocytes % 24.8 %; Mean Corpuscular HGB Conc 31.9 g/dL (31.6-35.5); Mean Corpuscular Hemoglobin 28.8 pg (28.0-33.3); Mean Corpuscular Volume 90.2 fL (83.0-100.0); Mean Platelet Volume 10.7 fL (9.4-12.4); Monocytes # 0.3 K/mcL (0.0-1.3); Monocytes % 6.6 %; Neutrophils # 3.2 K/mcL (1.6-8.9); Platelet Count 125 K/mcL (140-400); Red Blood Count 3.86 M/mcL (4.19-5.50); Red Cell Distribution Width 13.6 % (11.5-14.5); Segmented Neutrophils % 65.9 %
[2018-04-08 17:15] LABS: Troponin I < 0.03 ng/mL (< 0.04)
[2018-04-08 17:18] LABS: BUN/Creatinine Ratio 14 (6-26); Blood Urea Nitrogen 21 mg/dL (8-23); Carbon Dioxide 25 mEq/L (23-29); Chloride 103 mEq/L (98-107); Glucose 170 mg/dL (70-105); Osmolality,Calculated 289 (280-300); Potassium 4.8 mEq/L (3.5-5.1); Sodium 136 mEq/L (136-145); eGFR For Non-African Americans 47 (> 60)
[2018-04-08] MEDS ORDERED: traMADol 50 MG TABLET PO PRN (17:49)
[2018-04-08] MEDS ORDERED: Naloxone 0.4 MG/ML INJ IVP PRN (17:49)
[2018-04-08] MEDS ORDERED: *HR* Dextrose 50 % in Water (Syg) 50 ML SYRINGE IVP PRN (17:51)
[2018-04-08] MEDS ORDERED: D5% in Water 1,000 ML IVC PRN (17:51)
[2018-04-08] MEDS ORDERED: Dextrose Gel 15 GM/37.5 ML TUBE PO PRN ×2 (17:51)
--- NOTE | 2018-04-08 18:25 | Internal Med History&Physical ---
Date of Encounter: 04/08/18 Time of Encounter: 18:21 Internal Medicine - H&P: HPI Chief complaint: Chest pain Admitted From: Home Plans for Post Hospital Care: Home History of present illness: Mr. Grewal is a 62 year old male past medical history significant for coronary artery disease with CABG done in 1998 and a pacemaker inserted in 1992, hypertension, hyperlipidemia and diabetes. Patient presented to the emergency room complaining of pressure-like substernal, 8/10 chest pain radiating to his left shoulder that started this afternoon when he was taking a shower. Reports that after the chest pain is status post afternoon, he has been persistent. Known alleviating or aggravating factor. Associated with nausea and nonbilious vomiting. Denies abdominal pain, fever, chills or shortness of breath. No productive cough.. Reports similar episode of chest pain yesterday while lying in his bed which resolved on its on. Past Med Surg Social Fam HX - Past Medical History Medical history: cirrhosis, CHF, coronary artery disease, CVA, diabetes, GERD, hypertension, myocardial infarction, thyroid disease, other Additional medical history: ITP Psychiatric history: no psych history - Past Surgical History Surgical History: appendectomy, cholecystectomy, coronary bypass (CABG), orthopedic, other, pacemaker/AICD Additional surgical history: back surgery, Left Hip replacement - Social History Smoking Status: Never smoker Smokeless Tobacco Status: No Alcohol use: none Drug use: none - Family History Father Family Member Ethnicity: Non- Living Status: Hx Family Cardiac Disorders: Yes ([place], Bypass) Brother Family Member Ethnicity: Non- Living Status: Hx Family Cardiac Disorders: Yes (PA) Mother Family Member Ethnicity: Non- Living Status: Hx Family Cardiac Disorders: No Internal Medicine - H&P: Meds Omeprazole [PriLOSEC] 40 mg PO BID 04/08/15 [History] Promethazine [Phenergan] 25 mg PO TID PRN 12/03/15 [History] Tizanidine HCl 4 mg PO QPM 08/03/16 [History] Aspirin 81 mg PO DAILY #30 tab.chew 08/06/16 [Rx] Atorvastatin [Lipitor] 40 mg PO HS 03/17/17 [History] Ropinirole HCl [Requip] 4 mg PO HS 05/01/17 [History] Gabapentin [Neurontin] 900 mg PO TID #30 capsule 07/02/17 [Rx] Pantoprazole Sodium 40 mg PO DAILY 01/01/18 [History] OxyCODONE Immed Rel [Roxicodone 10 MG] 10 mg PO QID PRN 2 Days #8 tab 01/06/18 [ Rx] Levothyroxine [Synthroid] 100 mcg PO QAM 04/08/18 [History] traZODone [TraZODone] 100 - 200 mg PO HS 04/08/18 [History] 3 Allergy/AdvReac Type Severity Reaction Status Date / Time morphine Allergy Intermediate Hives Verified 06/10/17 10:53 codeine Allergy Mild Itching Verified 06/10/17 10:53 Penicillins AdvReac Severe COMA Verified 06/10/17 10:53 nitroglycerin AdvReac Mild LOW BLOOD Verified 06/10/17 10:53 PRESSURE NITRATES Allergy Mild Itching Uncoded 06/10/17 10:53 NUBAIN Allergy Mild Itching Uncoded 06/10/17 10:53 All Systems PM: A 10-system review of systems was performed and is negative for pertinent findings except as documented above in the HPI. - Constitutional Constitutional: no chills, no fever(s), no falls, no weakness, no weight gain - EENT Eyes: no decreased night vision Nose, mouth and throat: no dysphagia, no mouth pain - Cardiovascular Cardiovascular ROS IM: chest pain, no dyspnea, no dyspnea on exertion, no irregular heart rhythm, no palpitations, no paroxysmal nocturnal dyspnea - Respiratory Respiratory: no cough, no hemoptysis, no wheezing - Gastrointestinal Gastrointestinal: dyspepsia, nausea, vomiting, no diarrhea - Genitourinary Genitourinary ROS male: no flank pain, no hematuria - Neurological Neurological ROS: no abnormal speech, no weakness - Psychiatric Psychiatric: no anxiety - Constitutional Vitals: Temp Pulse Resp BP Pulse Ox 98.6 F 50 16 117/45 97 04/08/18 16:16 04/08/18 17:28 04/08/18 17:28 04/08/18 17:28 04/08/18 17:28 Exam: General: Alert and oriented 3. In mild distress is due to nausea. Skin:Normal color, no rash, no lesions. HEENT:EOM, pupils equal, round and reactive. Cardiovascular: RRR, Normal S1 & S2, no rubs, murmurs or gallops. JVD about 6cm. Lungs: Clear lungs to auscultation bilaterally, no wheezes or crackles. Abdomen: Obese, Soft, non-tender, no rigidity or guarding. NABS in all 4 quadrants.. Extremities: No deformity, no edema or tenderness, no joint swelling or clubbing. Neurological:Normal cognition and motor skills. Rest of the physical exam is non contributory Internal Med - H&P Results - Labs CBC & Chem 7: 04/08/18 16:43 04/08/18 16:43 Labs: Short CBC 04/08/18 Range/Units 16:43 WBC 4.8 (4.3-11.1) K/mcL Hgb 11.1 L (12.9-16.9) g/dL Hct 34.8 L (37.5-50.1) % Plt Count 125 L (140-400) K/mcL Neutrophils # 3.2 (1.6-8.9) K/mcL BMP 04/08/18 16:43 Sodium 136 Potassium 4.8 Chloride 103 Carbon Dioxide 25 BUN 21 Creatinine 1.51 H Glucose 170 H Calcium 10.0 Cardiac Enzymes 04/08/18 Range/Units 16:43 Troponin I < 0.03 (< 0.04) ng/mL - Impressions ITS Impressions Chest X-Ray 04/08/18 16:25 IMPRESSION: No acute pulmonary finding. D/ / Aleksander Shearer MD / Aleksander Shearer MD Interpreting Provider: Aleksander Shearer MD - Assessment and plan (1) Chest pain Current Visit: Yes Status: Chronic Assessment and plan: Atypical chest pain. Plan Telemetry monitoring Serial troponin will start patient on low-dose beta joo Patient is allergic to nitroglycerin and morphine, will use tramadol for pain control. Aspirin 325 x1 plus aspirin 81 mg daily. Plavix 75 mg daily will start patient on heparin Patient had a nuclear stress test done less than 2 months ago which was negative for ischemia or infarct. If persistent chest pain and elevated troponin we will consider cardiology evaluation. Qualifiers: Chest pain type: unspecified Qualified Code(s): R07.9 - Chest pain, unspecified (2) Acute renal injury Current Visit: Yes Status: Acute Assessment and plan: Possibly secondary to decreased preload and the setting of nausea and vomiting. Plan Patient is started on gentle IV hydration. Avoid nephrotoxic medication. If not improvement of renal function with IV fluid, will consider retroperitoneal ultrasound. (3) Nausea & vomiting Current Visit: No Status: Acute Assessment and plan: Nothing by mouth. Started on ondansetron 4 mg IV every 8 hours as scheduled. On gentle IV hydration with D5 normal saline. Qualifiers: Vomiting type: unspecified Vomiting Intractability: non-intractable Qualified Code(s): R11.2 - Nausea with vomiting, unspecified (4) CAD (coronary artery disease) of bypass graft Current Visit: No Status: Chronic Assessment and plan: Started on aspirin and Plavix. and statin Qualifiers: [place] vs. transplanted heart: [place] heart Associated angina: angina presence unspecified Qualified Code(s): I25.810 - Atherosclerosis of coronary artery bypass graft(s) without angina pectoris (5) Diabetes mellitus Current Visit: No Status: Chronic Assessment and plan: As patient is nothing by mouth. Accu-Chek every 6 hours, and lispro sliding scale. 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 A strict intake and output. No need for diuretics at this time. Qualifiers: Qualified Code(s): I50.32 - Chronic diastolic (congestive) heart failure (7) HLD (hyperlipidemia) Current Visit: No Status: Chronic Assessment and plan: We will continue statin Qualifiers: Hyperlipidemia type: pure hypercholesterolemia Qualified Code(s): E78.00 - Pure hypercholesterolemia, unspecified; E78.0 - Pure hypercholesterolemia (8) HTN (hypertension) Current Visit: No Status: Chronic Assessment and plan: Patient is started on low-dose beta joo. No THIERRY inhibitor's due to OLEG. Qualifiers: Hypertension type: essential hypertension Qualified Code(s): I10 - Essential (primary) hypertension (9) DVT prophylaxis Current Visit: No Status: Acute Assessment and plan: Patient heparin 5000 units subcutaneous twice a day. - Time Spent With Patient Total time spent is greater than 50% in coordination of care (as documented) at patient's floor/unit and/or counseling patient: Greater than 35 minutes
[2018-04-08] MEDS ORDERED: *HR* Promethazine 25 MG/ML VIAL IVP ONE (18:41)
[2018-04-08 19:58] LABS: Estimated Average Glucose 151 mg/dl; Hemoglobin A1C 6.9 %
[2018-04-08] MEDS: Metoprolol XL (24 HR) Succ 25 MG TAB.ER.24H PO SCH (21:14)
[2018-04-08] MEDS: D5% in 0.9% NACL 1,000 ML IVC SCH (21:15)
[2018-04-08] MEDS: *HR* Heparin 5,000 UNIT/ML VIAL SQ SCH (21:15)
[2018-04-08] MEDS: Gabapentin 300 MG CAPSULE PO SCH (21:15)
[2018-04-08] MEDS: Insulin DETEMIR 100 UNIT/ML X5UNITS SQ SCH (21:18)
[2018-04-08] MEDS: Ondansetron 4 MG/2 ML VIAL IVP SCH (23:51)
[2018-04-09] MEDS: *HR* OxyCODONE Immed Rel 5 MG TABLET PO PRN (00:35)
[2018-04-09] MEDS ORDERED: GI Cocktail 40 ML EACH PO ONE (03:30)
[2018-04-09] MEDS: Ondansetron 4 MG/2 ML VIAL IVP SCH ×2 (05:44→16:52)
[2018-04-09] MEDS ORDERED: *HR* Morphine 2 MG/ML SYRINGE IVP ONE (05:46)
[2018-04-09 06:09] LABS: Basophils % 0.2 %; Eosinophils # 0.1 K/mcL (0.0-0.6); Eosinophils % 2.3 %; Hemoglobin 11.9 g/dL (12.9-16.9); Immature Granulocytes % 0.2 % (0-4); Lymphocytes # 1.4 K/mcL (0.6-4.6); Lymphocytes % 32.6 %; Mean Corpuscular HGB Conc 31.3 g/dL (31.6-35.5); Mean Corpuscular Hemoglobin 29.2 pg (28.0-33.3); Mean Corpuscular Volume 93.1 fL (83.0-100.0); Mean Platelet Volume 10.7 fL (9.4-12.4); Monocytes # 0.2 K/mcL (0.0-1.3); Monocytes % 5.5 %; Neutrophils # 2.6 K/mcL (1.6-8.9); Platelet Count 119 K/mcL (140-400); Red Blood Count 4.08 M/mcL (4.19-5.50); Red Cell Distribution Width 13.3 % (11.5-14.5); Segmented Neutrophils % 59.2 %
[2018-04-09 06:25] LABS: Prothrombin Time 11.8 Seconds (9.4-12.1)
[2018-04-09 06:27] LABS: Activated Partial Thrombo Time 29.5 Seconds (26.0-36.0)
[2018-04-09] MEDS: *HR* Heparin 5,000 UNIT/ML VIAL SQ SCH ×2 (06:56→16:56)
[2018-04-09 07:04] LABS: BUN/Creatinine Ratio 16 (6-26); Blood Urea Nitrogen 20 mg/dL (8-23); Calcium 9.6 mg/dL (8.6-10.3); Carbon Dioxide 27 mEq/L (23-29); Chloride 103 mEq/L (98-107); Chol/HDL Ratio 3.4 (0-4.9); Cholesterol 125 mg/dL (< 200); Glucose 128 mg/dL (70-105); HDL Cholesterol 37 mg/dL (40-59); LDL Cholesterol,Calculated 61 mg/dL (0-99); Magnesium 1.9 mg/dL (1.6-2.6); Osmolality,Calculated 286 (280-300); Phosphorous 3.1 mg/dL (2.7-4.5); Sodium 136 mEq/L (136-145); Triglycerides 137 mg/dL (< 150); eGFR For Non-African Americans 57 (> 60)
[2018-04-09] MEDS: Insulin LISPRO 300 UNITS/3 ML VIAL SQ SCH ×5 (08:36→16:55)
[2018-04-09] MEDS: D5% in 0.9% NACL 1,000 ML IVC SCH ×2 (10:31→22:33)
[2018-04-09] MEDS: *HR* Morphine 2 MG/ML SYRINGE IVP PRN ×3 (10:32→20:49)
[2018-04-09] MEDS: *HR* Promethazine 25 MG/ML VIAL IVP SCH ×4 (10:33→20:49)
[2018-04-09 11:06] LABS: Albumin/Globulin Ratio 1.4 (1.1-2.2); Bilirubin,Direct 0.1 mg/dL (0.0-0.2); Bilirubin,Indirect 0.4 mg/dL (0.0-1.2); Bilirubin,Total 0.5 mg/dL (0.3-1.0); Globulin 2.9 g/dL (2.4-3.5); Total Protein 6.9 g/dL (6.4-8.9)
--- NOTE | 2018-04-09 13:39 | Internal Med Progress Note ---
Hospitalist Progress Note - Encounter Date of Encounter: 04/09/18 Time of Encounter: 13:36 - Subjective Interval History: Seen and evaluated at bedside, 6 reports feeling nauseated, associated with non bloody, non bilious vomiting. Still reports having some left sided chest discomfort. Reports mild abdominal discomfort. - Exam Vitals: Temp Pulse Resp BP Pulse Ox 98.1 F 50 14 146/70 100 04/09/18 11:21 04/09/18 11:21 04/09/18 11:21 04/09/18 11:04/09/18 11:21 Exam: General: Alert and oriented 3. In mild distress is due to nausea and vomiting. Cardiovascular: RRR, Normal S1 & S2, no rubs, murmurs or gallops. JVD about 6cm. Lungs: Clear lungs to auscultation bilaterally, no wheezes or crackles. Abdomen: Obese, Soft, non-tender, no rigidity or guarding, no tenderness to superficial and deep palpation. NABS in all 4 quadrants.. Extremities: no edema or tenderness. Neurological: Normal cognition. CN II-XII intact Rest of the physical exam is non contributory - Assessment and Plan (1) Nausea & vomiting Current Visit: No Status: Acute Assessment and Plan: Patient continued to have nausea, vomiting. Patient refers that for some time he has been having early satiety, and abdominal distention. gastroenteritis versus rule out gastroparesis. Plan Continue IV fluid On ondansetron 4 mg IV push every 8 hours scheduled. Started on Phenergan 12.5 mg IV every 6 hours scheduled. Continue nothing by mouth KUB Amylase, lipase Will consider doing a gastric emptying study to rule out gastroparesis. Pantoprazole 40 mg IV daily (2) Chest pain Current Visit: Yes Status: Chronic Assessment and Plan: Atypical chest pain. No troponin elevation. No ischemic changes on EKG. Plan Continue pain control with OxyCodone 10mg/PO Q6HR PRN for pain On nitroglycerin sublingual 0.4 mg every 5 minutes when necessary for chest pain 3 (3) Acute renal injury Current Visit: Yes Status: Resolved Assessment and Plan: Kidney function has returned to within normal with IV hydration. (4) CAD (coronary artery disease) of bypass graft Current Visit: No Status: Chronic Assessment and Plan: History coronary artery disease with coronary artery bypass graft. Plan Continue patient on aspirin 81 mg by mouth daily (5) Diabetes mellitus Current Visit: No Status: Chronic Assessment and Plan: As per patient he follows a diet. For diabetes control Plan As patient is nothing by mouth continue lispro sliding scale Accu-Cheks every 6 hours (6) Diastolic CHF Current Visit: No Status: Chronic Assessment and Plan: Not an acute exacerbation. Chest is clear to auscultation bilaterally. Plan We will continue metoprolol 12.5 mg by mouth daily (7) HLD (hyperlipidemia) Current Visit: No Status: Chronic Assessment and Plan: On atorvastatin 40 mg by mouth (8) HTN (hypertension) Current Visit: No Status: Chronic Assessment and Plan: Blood pressure well controlled, continue metoprolol 2.5 mg by mouth daily. (9) DVT prophylaxis Current Visit: No Status: Acute Assessment and Plan: 1 heparin 5000 units subcutaneous twice a day for DVT prophylaxis. - Summary of Assessment and Plan Summary of Assessment and Plan: Patient to remain in the hospital due to intractable nausea and vomiting. - Time Spent with Patient Total time spent is greater than 50% in coordination of care (as documented) at patient's floor/unit and/or counseling patient: Greater than 35 minutes Plan of Care Discussed with: patient Internal Medicine: Result - Labs CBC & Chem 7: 04/09/18 05:47 04/09/18 05:47 Labs: Short CBC 04/09/18 Range/Units 05:47 WBC 4.3 (4.3-11.1) K/mcL Hgb 11.9 L (12.9-16.9) g/dL Hct 38.0 (37.5-50.1) % Plt Count 119 L (140-400) K/mcL Neutrophils # 2.6 (1.6-8.9) K/mcL BMP 04/09/18 05:47 Sodium 136 Potassium 5.0 Chloride 103 Carbon Dioxide 27 BUN 20 Creatinine 1.28 Glucose 128 H Calcium 9.6 Cardiac Enzymes 04/08/18 04/09/18 04/09/18 Range/Units 22:47 05:10 10:31 Troponin I < 0.03 < 0.03 < 0.03 (< 0.04) ng/mL Liver Function 04/09/18 Range/Units 10:31 Total Bilirubin 0.5 (0.3-1.0) mg/dL Direct Bilirubin 0.1 (0.0-0.2) mg/dL AST 23 (13-39) Units/L ALT 14 (7-52) Units/L Alkaline Phosphatase 83 (34-104) Units/L Albumin 4.0 (3.5-5.7) g/dL - ABG Interpretation ABG results: PT/INR, D-dimer PT 11.8 Seconds (9.4-12.1) 04/09/18 05:47 - Impressions Impressions KUB X-Ray 04/09/18 09:45 IMPRESSION: Several mildly dilated loops of colon could represent developing distal obstruction or ileus. No evidence of small-bowel obstruction. Moderate stool burden. D/ / Wesley Marshall MD / Wesley Marshall MD Interpreting Provider: Wesley Marshall MD Consult Discharge Plan - Plan Referrals: Niko Knight MD [Primary Care Provider] - (1) Nausea & vomiting Qualifiers: Vomiting type: unspecified Vomiting Intractability: non-intractable Qualified Code(s): R11.2 - Nausea with vomiting, unspecified (2) Chest pain Qualifiers: Chest pain type: unspecified Qualified Code(s): R07.9 - Chest pain, unspecified (4) CAD (coronary artery disease) of bypass graft Qualifiers: [place] vs. transplanted heart: [place] heart Associated angina: angina presence unspecified Qualified Code(s): I25.810 - Atherosclerosis of coronary artery bypass graft(s) without angina pectoris (5) Diabetes mellitus Qualifiers: Diabetes mellitus type: type 2 Diabetes mellitus meterman insulin use: without meterman use Diabetes mellitus complication status: with kidney complications Diabetes mellitus complication detail: with chronic kidney disease Chronic kidney disease stage: stage 3 (moderate) Qualified Code(s): E11.22 - Type 2 diabetes mellitus with diabetic chronic kidney disease; N18.3 - Chronic kidney disease, stage 3 (moderate) (6) Diastolic CHF Qualifiers: Qualified Code(s): I50.32 - Chronic diastolic (congestive) heart failure (7) HLD (hyperlipidemia) Qualifiers: Hyperlipidemia type: pure hypercholesterolemia Qualified Code(s): E78.00 - Pure hypercholesterolemia, unspecified; E78.0 - Pure hypercholesterolemia (8) HTN (hypertension) Qualifiers: Hypertension type: essential hypertension Qualified Code(s): I10 - Essential (primary) hypertension
[2018-04-09] MEDS: Aspirin 81 MG TAB.CHEW PO SCH (15:12)
[2018-04-09] MEDS: Gabapentin 300 MG CAPSULE PO SCH ×3 (15:12→22:23)
[2018-04-09] MEDS: Insulin DETEMIR 100 UNIT/ML X5UNITS SQ SCH ×2 (15:12→20:50)
[2018-04-09] MEDS: Metoprolol XL (24 HR) Succ 25 MG TAB.ER.24H PO SCH (15:13)
[2018-04-09] MEDS: Pantoprazole 40 MG VIAL IVP SCH (16:52)
--- NOTE | 2018-04-09 17:12 | Electrocardiograph Report ---
[address] [place] [address] Test Date: 2018-04-08 Pat Name: Ar Grewal Department: [id number] Room: 3B46 Gender: M Oceanologist: : 1955 Requested By: Maryann See Order Number: [id number] Reading MD: Reema Kim Measurements Intervals [place] Rate: 50 P: CT: 155 QRS: -108 QRSD: 137 T: 89 QT: 463 QTc: 423 Interpretive Statements Atrial-paced rhythm Right bundle branch block Inferior infarct, old Abnormal ST and T findings - consider ischemia Electronically Signed On 04-09-2018 17:11:03 EDT by Reema Kim
[2018-04-09] MEDS: Lactulose Oral Soln 20 GM/30 ML UDC PO SCH (22:23)
[2018-04-10] MEDS: *HR* OxyCODONE Immed Rel 5 MG TABLET PO PRN ×2 (03:08→15:16)
[2018-04-10] MEDS: Ondansetron 4 MG/2 ML VIAL IVP SCH ×3 (03:09→15:14)
[2018-04-10] MEDS: *HR* Heparin 5,000 UNIT/ML VIAL SQ SCH ×2 (05:38→17:28)
[2018-04-10 06:40] LABS: Basophils % 0.2 %; Eosinophils # 0.1 K/mcL (0.0-0.6); Hematocrit 32.3 % (37.5-50.1); Hemoglobin 10.2 g/dL (12.9-16.9); Immature Granulocytes % 0.5 % (0-4); Lymphocytes # 1.3 K/mcL (0.6-4.6); Lymphocytes % 32.2 %; Mean Corpuscular HGB Conc 31.6 g/dL (31.6-35.5); Mean Corpuscular Hemoglobin 28.9 pg (28.0-33.3); Mean Corpuscular Volume 91.5 fL (83.0-100.0); Mean Platelet Volume 10.9 fL (9.4-12.4); Monocytes # 0.3 K/mcL (0.0-1.3); Monocytes % 6.2 %; Neutrophils # 2.4 K/mcL (1.6-8.9); Platelet Count 101 K/mcL (140-400); Red Blood Count 3.53 M/mcL (4.19-5.50); Red Cell Distribution Width 13.5 % (11.5-14.5); Segmented Neutrophils % 58.9 %
[2018-04-10 07:05] LABS: BUN/Creatinine Ratio 12 (6-26); Blood Urea Nitrogen 13 mg/dL (8-23); Calcium 9.1 mg/dL (8.6-10.3); Carbon Dioxide 25 mEq/L (23-29); Chloride 105 mEq/L (98-107); Glucose 150 mg/dL (70-105); Magnesium 1.8 mg/dL (1.6-2.6); Osmolality,Calculated 287 (280-300); Potassium 4.9 mEq/L (3.5-5.1); Sodium 137 mEq/L (136-145); eGFR For Non-African Americans > 60 (> 60)
[2018-04-10] MEDS: *HR* Promethazine 25 MG/ML VIAL IVP SCH (09:23)
[2018-04-10] MEDS: Aspirin 81 MG TAB.CHEW PO SCH (09:49)
[2018-04-10] MEDS: Gabapentin 300 MG CAPSULE PO SCH ×3 (09:49→20:32)
[2018-04-10] MEDS: Metoprolol XL (24 HR) Succ 25 MG TAB.ER.24H PO SCH (09:49)
[2018-04-10] MEDS: Pantoprazole 40 MG VIAL IVP SCH (09:49)
[2018-04-10] MEDS: Insulin LISPRO 300 UNITS/3 ML VIAL SQ SCH ×6 (09:50→17:32)
[2018-04-10] MEDS: Insulin DETEMIR 100 UNIT/ML X5UNITS SQ SCH ×2 (09:50→20:32)
[2018-04-10] MEDS: Lactulose Oral Soln 20 GM/30 ML UDC PO SCH ×2 (09:50→20:31)
--- NOTE | 2018-04-10 09:50 | Internal Med Progress Note ---
Hospitalist Progress Note - Encounter Date of Encounter: 04/10/18 Time of Encounter: 09:48 - Subjective Interval History: Patient evaluated at bedside, reports feeling better today, but still recalls feeling nauseous, denies vomiting episodes today. Denies chest pain, shortness of breath. - Exam Vitals: Temp Pulse Resp BP Pulse Ox 98.0 F 50 16 115/54 98 04/10/18 07:33 04/10/18 07:33 04/10/18 07:33 04/10/18 07:33 04/10/18 07:33 Exam: General: Alert and oriented 3. No acute distress. Cardiovascular: RRR, Normal S1 & S2, no rubs, murmurs or gallops. JVD about 6cm. Lungs: Clear lungs to auscultation bilaterally, no wheezes or crackles. Abdomen: Obese, Soft, non-tender, no rigidity or guarding. NABS in all 4 quadrants.. Extremities: no edema or tenderness. Neurological: Normal cognition. CN II-XII intact Rest of the physical exam is non contributory - Assessment and Plan (1) Nausea & vomiting Current Visit: No Status: Acute Assessment and Plan: Patient is seen feeling nauseated. No vomiting episodes this morning. Plan Continue gentle IV hydration Discontinue Phenergan start Metoclopramide 10 mg IV every 6 hours as scheduled Continue ondansetron 4 mg every 8 hours when necessary Advance diet as tolerated. Nuclear medicine gastric emptying study ordered to rule out gastroparesis. PPIs IV daily (2) Chest pain Current Visit: Yes Status: Chronic Assessment and Plan: Atypical chest pain on presentation. No troponin elevation. Plan As patient has a history of coronary artery bypass. We will consider nuclear stress test. Continue aspirin 81 mg, and metoprolol 12.5 mg by mouth daily. Avoid nitroglycerin. As per patient he sensitive to nitroglycerin or been exposed to it at work for a long period of time. Continue OxyCodone 10mg/PO by mouth every 6 hours when necessary for pain control (3) CAD (coronary artery disease) of bypass graft Current Visit: No Status: Chronic Assessment and Plan: History coronary artery disease with coronary artery bypass graft. Plan Continue patient on aspirin 81 mg by mouth daily (4) Diabetes mellitus Current Visit: No Status: Chronic Assessment and Plan: Blood sugar well controlled. Plan Continue Levemir 5 units twice a day, and lispro 2 units before meals, and sliding scale. (5) Diastolic CHF Current Visit: No Status: Chronic Assessment and Plan: Not an acute CHF exacerbation. Plan Strict intake and output Daily weight 2 g sodium diet. (6) HLD (hyperlipidemia) Current Visit: No Status: Chronic Assessment and Plan: Patient on atorvastatin 40 mg daily. (7) HTN (hypertension) Current Visit: No Status: Chronic Assessment and Plan: Blood pressure well controlled. Continue metoprolol 12.5 mg by mouth daily. (8) DVT prophylaxis Current Visit: No Status: Acute Assessment and Plan: On heparin 5000 units subcutaneous twice a day. (9) Acute renal injury Current Visit: Yes Status: Resolved - Summary of Assessment and Plan Summary of Assessment and Plan: Patient needs to remain in the hospital due to intractable nausea and vomiting. - Time Spent with Patient Total time spent is greater than 50% in coordination of care (as documented) at patient's floor/unit and/or counseling patient: Greater than 35 minutes Plan of Care Discussed with: patient (the nurse) Internal Medicine: Result - Labs CBC & Chem 7: 04/10/18 05:30 04/10/18 05:30 Labs: Short CBC 04/10/18 Range/Units 05:30 WBC 4.0 L (4.3-11.1) K/mcL Hgb 10.2 L D (12.9-16.9) g/dL Hct 32.3 L (37.5-50.1) % Plt Count 101 L (140-400) K/mcL Neutrophils # 2.4 (1.6-8.9) K/mcL BMP 04/10/18 05:30 Sodium 137 Potassium 4.9 Chloride 105 Carbon Dioxide 25 BUN 13 Creatinine 1.09 Glucose 150 H Calcium 9.1 Cardiac Enzymes 04/09/18 Range/Units 10:31 Troponin I < 0.03 (< 0.04) ng/mL Liver Function 04/09/18 Range/Units 10:31 Total Bilirubin 0.5 (0.3-1.0) mg/dL Direct Bilirubin 0.1 (0.0-0.2) mg/dL AST 23 (13-39) Units/L ALT 14 (7-52) Units/L Alkaline Phosphatase 83 (34-104) Units/L Albumin 4.0 (3.5-5.7) g/dL - ABG Interpretation ABG results: PT/INR, D-dimer PT 11.8 Seconds (9.4-12.1) 04/09/18 05:47 - Impressions Impressions KUB X-Ray 04/09/18 09:45 IMPRESSION: Several mildly dilated loops of colon could represent developing distal obstruction or ileus. No evidence of small-bowel obstruction. Moderate stool burden. D/ / Wesley Marshall MD / Wesley Marshall MD Interpreting Provider: Wesley Marshall MD X-Ray 04/09/18 13:12 IMPRESSION: Enteric tube in the stomach as above. No evidence of bowel obstruction. D/ / Gustavo Kelly MD / Gustavo Kelly MD Interpreting Provider: Gustavo Kelly MD Consult Discharge Plan - Plan Referrals: Niko Knight MD [Primary Care Provider] - (1) Nausea & vomiting Qualifiers: Vomiting type: unspecified Vomiting Intractability: non-intractable Qualified Code(s): R11.2 - Nausea with vomiting, unspecified (2) Chest pain Qualifiers: Chest pain type: unspecified Qualified Code(s): R07.9 - Chest pain, unspecified (3) CAD (coronary artery disease) of bypass graft Qualifiers: [place] vs. 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: without residential use Diabetes mellitus complication status: with kidney complications Diabetes mellitus complication detail: with chronic kidney disease Chronic kidney disease stage: stage 3 (moderate) Qualified Code(s): E11.22 - Type 2 diabetes mellitus with diabetic chronic kidney disease; N18.3 - Chronic kidney disease, stage 3 (moderate) (5) Diastolic CHF Qualifiers: Qualified Code(s): I50.32 - Chronic diastolic (congestive) heart failure (6) HLD (hyperlipidemia) Qualifiers: Hyperlipidemia type: pure hypercholesterolemia Qualified Code(s): E78.00 - Pure hypercholesterolemia, unspecified; E78.0 - Pure hypercholesterolemia (7) HTN (hypertension) Qualifiers: Hypertension type: essential hypertension Qualified Code(s): I10 - Essential (primary) hypertension
[2018-04-10] MEDS: D5% in 0.9% NACL 1,000 ML IVC SCH ×2 (09:57→10:14)
[2018-04-10] MEDS: Metoclopramide 10 MG/2 ML VIAL IVP SCH ×2 (12:40→17:28)
[2018-04-11] MEDS: Metoclopramide 10 MG/2 ML VIAL IVP SCH ×2 (00:20→06:26)
[2018-04-11] MEDS: Ondansetron 4 MG/2 ML VIAL IVP SCH ×2 (00:20→08:32)
[2018-04-11] MEDS: D5% in 0.9% NACL 1,000 ML IVC SCH (00:20)
[2018-04-11] MEDS ORDERED: rOPINIRole 1 MG, rOPINIRole 3 MG PO SCH (02:00)
[2018-04-11] MEDS ORDERED: NON-FORMULARY MEDICATION 1 EACH EACH (Ropinirole Hcl [Requip] 4 MG) PO SCH (02:00)
[2018-04-11] MEDS: *HR* OxyCODONE Immed Rel 5 MG TABLET PO PRN (02:16)
[2018-04-11] MEDS: *HR* Heparin 5,000 UNIT/ML VIAL SQ SCH (06:26)
[2018-04-11 07:37] LABS: Basophils % 0.3 %; Eosinophils # 0.1 K/mcL (0.0-0.6); Eosinophils % 2.2 %; Hematocrit 33.1 % (37.5-50.1); Hemoglobin 10.5 g/dL (12.9-16.9); Immature Granulocytes % 0.8 % (0-4); Immature Platelets 4.8 % (1.1-6.1); Lymphocytes # 1.3 K/mcL (0.6-4.6); Mean Corpuscular HGB Conc 31.7 g/dL (31.6-35.5); Mean Corpuscular Hemoglobin 29.7 pg (28.0-33.3); Mean Corpuscular Volume 93.5 fL (83.0-100.0); Mean Platelet Volume 10.6 fL (9.4-12.4); Monocytes # 0.2 K/mcL (0.0-1.3); Monocytes % 6.4 %; Neutrophils # 1.9 K/mcL (1.6-8.9); Red Blood Count 3.54 M/mcL (4.19-5.50); Red Cell Distribution Width 13.2 % (11.5-14.5); Segmented Neutrophils % 53.3 %
[2018-04-11 07:41] LABS: Platelet Count 91 K/mcL (140-400)
[2018-04-11 07:48] VITALS: BP 128/69
[2018-04-11 07:50] LABS: BUN/Creatinine Ratio 15 (6-26); Blood Urea Nitrogen 17 mg/dL (8-23); Calcium 9.1 mg/dL (8.6-10.3); Carbon Dioxide 25 mEq/L (23-29); Chloride 106 mEq/L (98-107); Glucose 117 mg/dL (70-105); Magnesium 1.9 mg/dL (1.6-2.6); Osmolality,Calculated 281 (280-300); Potassium 4.9 mEq/L (3.5-5.1); Sodium 134 mEq/L (136-145); eGFR For Non-African Americans > 60 (> 60)
[2018-04-11] MEDS: Aspirin 81 MG TAB.CHEW PO SCH (08:32)
[2018-04-11] MEDS: Lactulose Oral Soln 20 GM/30 ML UDC PO SCH (08:32)
[2018-04-11] MEDS: Gabapentin 300 MG CAPSULE PO SCH (08:32)
[2018-04-11] MEDS: Insulin LISPRO 300 UNITS/3 ML VIAL SQ SCH ×2 (08:32)
[2018-04-11] MEDS: Insulin DETEMIR 100 UNIT/ML X5UNITS SQ SCH (08:32)
[2018-04-11] MEDS: Metoprolol XL (24 HR) Succ 25 MG TAB.ER.24H PO SCH (08:32)
[2018-04-11] MEDS: Pantoprazole 40 MG VIAL IVP SCH (08:32)
--- NOTE | 2018-04-11 08:45 | Discharge Summary ---
- NOTES TO OUTPATIENT PROVIDER Notes to Outpatient Provider: Follow-up with box annealer within 1-2 weeks. Orders not resulted at time of discharge: Pending orders 04/10/18 08:00 NM gastric emptying study [NM] Routine 04/10/18 09:51 SP pharm nuclear stress Routine 04/10/18 09:52 NM tomas perf SPECT multi [NM] Routine Date of Encounter: 04/11/18 Time of Encounter: 08:41 - Discharge Diagnosis (1) Nausea & vomiting Priority: Primary Status: Resolved Qualifiers: Vomiting type: unspecified Vomiting Intractability: non-intractable Qualified Code(s): R11.2 - Nausea with vomiting, unspecified (2) Chest pain Priority: Secondary Status: Resolved Qualifiers: Chest pain type: unspecified Qualified Code(s): R07.9 - Chest pain, unspecified (3) CAD (coronary artery disease) of bypass graft Priority: Secondary Status: Chronic Qualifiers: [place] vs. transplanted heart: [place] heart Associated angina: angina presence unspecified Qualified Code(s): I25.810 - Atherosclerosis of coronary artery bypass graft(s) without angina pectoris (4) Diabetes mellitus Priority: Secondary Status: Chronic Qualifiers: Diabetes mellitus type: type 2 Diabetes mellitus intermodal dispatcher insulin use: without intermodal dispatcher use Diabetes mellitus complication status: with kidney complications Diabetes mellitus complication detail: with chronic kidney disease Chronic kidney disease stage: stage 3 (moderate) Qualified Code(s): E11.22 - Type 2 diabetes mellitus with diabetic chronic kidney disease; N18.3 - Chronic kidney disease, stage 3 (moderate) (5) Diastolic CHF Priority: Secondary Status: Chronic Qualifiers: Qualified Code(s): I50.32 - Chronic diastolic (congestive) heart failure (6) HLD (hyperlipidemia) Priority: Secondary Status: Chronic Qualifiers: Hyperlipidemia type: pure hypercholesterolemia Qualified Code(s): E78.00 - Pure hypercholesterolemia, unspecified; E78.0 - Pure hypercholesterolemia (7) HTN (hypertension) Priority: Secondary Status: Chronic Qualifiers: Hypertension type: essential hypertension Qualified Code(s): I10 - Essential (primary) hypertension (8) DVT prophylaxis Priority: Secondary Status: Chronic (9) Acute renal injury Priority: Secondary Status: Resolved Hospital course: Mr. Grewal is a 62 year old male past medical history significant for coronary artery disease with CABG done in 1998 and a pacemaker inserted in 1992, hypertension, hyperlipidemia and diabetes. Patient presented to the emergency room complaining of pressure-like substernal, 8/10 chest pain radiating to his left shoulder. Patient also reports that he always has chest pain, and recently came to the hospital was because this chest pain was more intense. Ischemic workup during these admission was negative. No elevation in troponin, or EKG changes. Patient recently had cardiac stress test, which was negative for ischemia. Patient also reports nausea and vomiting of 2 day duration. A KUB done showed no evidence. Which was treated with IV antiemetics And IV fluids. Patient's symptoms have resolved and patient he is hemodynamically is stable to be discharged home. Recommended to follow-up with cardiology within 1-2 weeks of hospital discharge. Because of increased his history of diabetes Patient was recommended to have a gastric emptying study in the outpatient setting to rule out gastroparesis.. - Time Spent with Patient Total time spent providing and/or coordinating discharge services: Greater than 30 minutes - Discharge Medications Prescriptions: Metoclopramide HCl 5 mg PO Q8HR 30 Days #60 tablet Metoprolol XL (24 HR) Succ [Toprol Xl] 12.5 mg PO DAILY 30 Days #30 tab.er.24h Home Medications: Omeprazole [PriLOSEC] 40 mg PO BID 04/08/15 [History] Tizanidine HCl 4 mg PO QPM 08/03/16 [History] Aspirin 81 mg PO DAILY #30 tab.chew 08/06/16 [Rx] Atorvastatin [Lipitor] 40 mg PO HS 03/17/17 [History] Ropinirole HCl [Requip] 4 mg PO HS 05/01/17 [History] Gabapentin [Neurontin] 900 mg PO TID #30 capsule 07/02/17 [Rx] Pantoprazole Sodium 40 mg PO DAILY 01/01/18 [History] OxyCODONE Immed Rel [Roxicodone 10 MG] 10 mg PO QID PRN 2 Days #8 tab 01/06/18 [ Rx] Levothyroxine [Synthroid] 100 mcg PO QAM 04/08/18 [History] traZODone [TraZODone] 100 - 200 mg PO HS 04/08/18 [History] Metoclopramide HCl 5 mg PO Q8HR 30 Days #60 tablet 04/11/18 [Rx] Metoprolol XL (24 HR) Succ [Toprol Xl] 12.5 mg PO DAILY 30 Days #30 tab.er.24h 04/11/18 [Rx] Allergies/Adverse Reactions: 3 Allergy/AdvReac Type Severity Reaction Status Date / Time morphine Allergy Intermediate Hives Verified 06/10/17 10:53 codeine Allergy Mild Itching Verified 06/10/17 10:53 Penicillins AdvReac Severe COMA Verified 06/10/17 10:53 nitroglycerin AdvReac Mild LOW BLOOD Verified 06/10/17 10:53 PRESSURE NITRATES Allergy Mild Itching Uncoded 06/10/17 10:53 NUBAIN Allergy Mild Itching Uncoded 06/10/17 10:53 Date of admission: 04/08/18 18:38 Primary care physician: Niko Knight MD - Constitutional Vitals: Temp Pulse Resp BP Pulse Ox 97.8 F 59 15 128/69 100 04/11/18 07:44 04/11/18 07:44 04/11/18 07:44 04/11/18 07:44 04/11/18 07:44 Exam: General: Alert and oriented 3. No distress. Cardiovascular: RRR, Normal S1 & S2, no rubs, murmurs or gallops. JVD about 6cm. Lungs: Clear lungs to auscultation bilaterally, no wheezes or crackles. Abdomen: Obese, Soft, non-tender, no rigidity or guarding, no tenderness to superficial and deep palpation. NABS in all 4 quadrants.. Extremities: no edema or tenderness. Neurological: Normal cognition. CN II-XII intact Rest of the physical exam is non contributory - Patient Status Disposition: Home, Self-Care Condition: Good Functional capacity at discharge: independent ambulation Overall status at discharge: patient is back to baseline - Discharge Instructions Follow Up With: Niko Knight MD [Primary Care Provider] - - Diet and Activity Activity: resume usual activities as tolerated Diet: diabetic diet
== END 2018-04-11 11:01 | disposition home or self-care (01) ==
LOC: 3BNU 16:08 → EMEROOARM 16:08 → 3BNU 19:03
PROVIDERS: ADMIT Internal Medicine; ATTEND Internal Medicine

== ENCOUNTER 2018-12-20 10:58 | Inpatient (IN) ==
[2018-12-20] MEDS ORDERED: *HR* FentaNYL (PF) 100 MCG/2 ML VIAL IVP ONE ×2 (12:08→15:27)
[2018-12-20] MEDS ORDERED: Ibuprofen 400 MG TABLET PO ONE (12:17)
[2018-12-20 12:44] LABS: Basophils % 0.5 %; Hemoglobin 11.1 g/dL (12.9-16.9); Mean Corpuscular Volume 92.5 fL (83.0-100.0); Red Cell Distribution Width 13.4 % (11.5-14.5)
[2018-12-20 12:46] LABS: Eosinophils # 0.2 K/mcL (0.0-0.6); Eosinophils % 3.5 %; Hematocrit 35.8 % (37.5-50.1); Immature Granulocytes % 0.5 % (0-4); Immature Platelets 3.4 % (1.1-6.1); Lymphocytes # 0.9 K/mcL (0.6-4.6); Lymphocytes % 21.8 %; Mean Corpuscular Hemoglobin 28.7 pg (28.0-33.3); Mean Platelet Volume 10.9 fL (9.4-12.4); Monocytes # 0.2 K/mcL (0.0-1.3); Platelet Count 100 K/mcL (140-400); Red Blood Count 3.87 M/mcL (4.19-5.50); Segmented Neutrophils % 69.7 %; White Blood Count 4.3 K/mcL (4.3-11.1)
[2018-12-20 13:03] LABS: BUN/Creatinine Ratio 22 (6-26); Blood Urea Nitrogen 24 mg/dL (8-23); Calcium 9.7 mg/dL (8.6-10.3); Carbon Dioxide 26 mEq/L (23-29); Chloride 101 mEq/L (98-107); Glucose 163 mg/dL (70-105); Osmolality,Calculated 288 (280-300); Potassium 4.6 mEq/L (3.5-5.1); Sodium 135 mEq/L (136-145); eGFR For African Americans > 60 (> 60); eGFR For Non-African Americans > 60 (> 60)
--- NOTE | 2018-12-20 14:15 | Emergency Department Note ---
Disposition Clinical Impression: Back pain due to injury, Unable to ambulate Disposition: Admitted As Inpatient Condition: Good Time of Disposition: 15:33 Back Pain HPI - General Chief Complaint: ED Back Pain/Injury Stated Complaint: fall 3 weeks ago with back pain Time Seen by Provider: 12/20/18 11:10 Source: patient, other (Friend) Mode of arrival: private vehicle Limitations: no limitations Nursing Notes Reviewed: Yes Vital Signs Reviewed: Yes - History of Present Illness HPI Narrative: 63-year-old male history of 3 prior CVA, history of chronic back pain presents emergency department with worsening back pain after recent fall. States about 3 weeks ago in his bedroom he attempted to sit on his bed and missed. He landed on his butt and since then has had excruciating pain. Reports 10 of 10 pain. Worse with movements. Mostly on the lower back across to the left. He denies headache injury or trauma. Denies any abdominal pain. At baseline he does have left side weakness mostly in the left leg. Since injury a has gotten worse. He is now walking with some assistance but drags his left leg. He does not take any anticoagulants. He takes chronic pain medications oxycodone 10 mg. His pain specialists is in [place]. He recently was discharged home from a [facility] prior to the fall with similar circumstances. He lives with his but she currently is in [place]. He has been unable to take care of himself for the past several days and his friend drove here to be evaluated. History of fusion in the past. Pt Subjective Complaint: back pain, back injury, fall - Related Data Home Medications Medication Instructions Recorded Confirmed Atorvastatin [Lipitor] 40 mg PO HS 03/17/17 12/20/18 Ropinirole HCl [Requip] 4 mg PO HS 05/01/17 12/20/18 Pantoprazole Sodium 40 mg PO DAILY 01/01/18 12/20/18 Omeprazole [PriLOSEC] 40 mg PO HS 08/05/18 12/20/18 Levothyroxine Sodium 75 mcg PO DAILY 08/06/18 12/20/18 Magnesium Oxide [Mag-Ox] 400 mg PO BID PRN 08/06/18 12/20/18 Metoprolol XL (24 HR) Succ [Toprol 25 mg PO DAILY PRN 08/06/18 12/20/18 Xl] Promethazine [Phenergan] 25 mg IM TID PRN 08/06/18 12/20/18 Trazodone HCl 200 mg PO HS 08/06/18 12/20/18 Gabapentin [Neurontin] 900 mg PO HS 12/20/18 12/20/18 Previous Rx's Medication Instructions Recorded Aspirin 81 mg PO DAILY #30 tab.chew 08/06/16 OxyCODONE Immed Rel [Roxicodone 10 10 mg PO QID PRN 2 Days #8 tab 01/06/18 MG] Allergies Allergy/AdvReac Type Severity Reaction Status Date / Time codeine Allergy Mild Itching Verified 08/06/18 13:19 Penicillins AdvReac Severe COMA Verified 08/06/18 13:19 nitroglycerin AdvReac Mild See Verified 08/06/18 13:19 Comments NITRATES Allergy Mild "DROPS Uncoded 08/06/18 13:19 BLOOD PRESSURE, PASS OUT" NUBAIN Allergy Mild "VOMITING, Uncoded 08/06/18 13:19 DIARRHEA" All systems ED: reviewed and negative except as stated. Review of Systems: As Per HPI Constitutional: Denies: fever, chills Cardiovascular: Denies: chest pain Gastrointestinal: Denies: abdominal pain, nausea, vomiting Musculoskeletal: Reports: back pain Neurological: Reports: weakness, abnormal gait. Denies: numbness, paresthesias Past Medical History - Past Medical History Attestation: Yes The following information was validated with the patient. Source: patient Medical history: Reports: cirrhosis, CHF, coronary artery disease, CVA, diabetes, GERD, hyperlipidemia, hypertension, myocardial infarction, thyroid disease, other Surgical history: Reports: appendectomy, cholecystectomy, coronary bypass (CABG), orthopedic, other, pacemaker/AICD (Placed in 1992 at [facility]) Psychiatric history: Reports: no psych history - Social History Smoking Status: Never smoker Smokeless Tobacco Status: No Alcohol use: Reports: none Drug use: Reports: none Physical Exam - General Limitations: no limitations General appearance: alert, in no apparent distress - Head Head exam: atraumatic, normocephalic, normal inspection - Eye Eye exam: Present: normal appearance, PERRL, EOMI, miosis, other (Slight left eye ptosis noted to be baseline) - ENT ENT exam: normal exam, normal oropharynx, mucous membranes moist - Neck Neck exam: Present: normal inspection, full ROM, trachea midline - Chest Chest inspection: Present: normal inspection, symmetric chest wall rise - Respiratory Respiratory exam: Present: normal lung sounds bilaterally. Absent: respiratory distress - Cardiovascular Cardiovascular exam: Present: regular rate, normal rhythm, normal heart sounds - Abdominal Exam Abdominal exam: Present: soft, Non-Tender. Absent: tenderness, distention, guarding, rebound, rigidity - Rectal Exam Rectal exam: Present: decreased rectal tone, other (Stool in the rectal vault). Absent: black stool, bloody stool - Back Exam Back exam: Present: paraspinal tenderness, vertebral tenderness. Absent: full ROM (Limited due to pain), tenderness, CVA tenderness (R), muscle spasm - Neurological Exam Neurological exam: Present: alert, oriented X3 - Expanded Neurological Exam Patient oriented to: Present: person, place, time Speech: Present: fluid speech Cranial nerves: EOM function (II, III, IV, ): Normal, facial sensation (V): Normal, facial palsy (VII): Abnormal Left, tongue deviation (XII): Normal Motor strength - LUE: 4/5 Motor strength - RUE: 5/5 Motor strength - LLE: 1/5 Motor strength - RLE: 5/5 Upper motor neuron exam: gerson neglect: Absent bilaterally, pronator drift: Absent bilaterally Sensory exam upper extremity: light touch: Normal Sensory exam lower extremity: light touch: Abnormal Left, pin prick: Normal Coma Scale Eye Opening: Spontaneous Coma Scale Motor Response: Obeys Commands Coma Scale Verbal Response: Oriented Coma Scale Total: 15 - Skin Skin exam: Present: warm, dry, intact, normal color. Absent: rash, cyanosis, diaphoresis Course Course Narrative: Patient presents with acute on chronic back pain. It has gotten worse since the fall after being [facility] from [facility]. No head injury was noted. He does report some urinary retention and some constipation as he is on chronic pain medications. States he had this similar on a prior admission which require him to be placed in the [facility] facility. He has poor strength in the left lower extremity which he reports as chronic and slightly worse than usual. A rectal exam was performed and did have poor rectal tone. Discuss the possibility of MRI however he states his pacemaker is incompatible. I do not believe this is emergent situation requiring further imaging but we will obtain a CT scan to evaluate for any acute fractures. He has good function to the [facility] lower extremity. We discussed skin the CT scan and then having further evaluation. We will check some labs in give him pain medication for control. Patient is agreeable to this plan. - Reevaluation(s) Reevaluation #1: CT scan does not reveal any acute fractures. He has chronic changes. We attempted to get him place to a [facility] facility through our social media editor however it requires a prior authorization. We attempted to get him to ambulate he was unable to. He currently lives with his who is currently [id number] and he is unable to take care of himself. At this time we plan for admission and pain control. Patient is agreeable to this plan. Code status full code. Time: 15:02 - Consultations Consultation #1: Spoke with on-call hospitalist anderson Chino to admit for back pain and inability to ambulate. No further orders at this time. Consideration for orthopedic spine consultation Time: 15:25 Vital Signs Temperature 98 F 12/20/18 11:00 Pulse Rate 51 12/20/18 11:00 Respiratory Rate 16 12/20/18 11:00 Blood Pressure 123/52 12/20/18 11:00 O2 Sat by Pulse Oximetry 99 12/20/18 11:00 Temperature 97.5 F L 12/20/18 19:18 Pulse Rate 62 12/20/18 19:18 Respiratory Rate 16 12/20/18 19:18 Blood Pressure 112/65 12/20/18 19:18 O2 Sat by Pulse Oximetry 94 12/20/18 19:18 Oxygen Delivery Oxygen Delivery Room Air Back Pain/Injury - MDM Narrative Medical decision making narrative: Patient was discussed with my attending physician who agrees with ED management and final disposition. They independently evaluated the patient. Please refer to their attestation to this encounter for additional information. This note was generated by [employer] voice recognition software and as a result grammatical or spelling errors may occur using this program. - Medical Records Medical records reviewed: Yes I reviewed the patient's medical records. - Lab Data Lab results reviewed: Yes I reviewed the patient's lab results. Result diagrams: 12/20/18 17:01 12/20/18 12:31 Lab Results 12/20/18 12/20/18 12/20/18 Range/Units 12:31 12:31 17:01 WBC 4.3 4.5 (4.3-11.1) K/mcL RBC 3.87 L 3.62 L (4.19-5.50) M/mcL Hgb 11.1 L 10.3 L (12.9-16.9) g/dL Hct 35.8 L 32.8 L (37.5-50.1) % MCV 92.5 90.6 (83.0-100.0) fL MCH 28.7 28.5 (28.0-33.3) pg MCHC 31.0 L 31.4 L (31.6-35.5) g/dL RDW 13.4 13.4 (11.5-14.5) % Plt Count 100 L 101 L (140-400) K/mcL MPV 10.9 11.1 (9.4-12.4) fL Immature Gran % 0.5 (0-4) % Seg Neutrophils % 69.7 % Lymphocytes % 21.8 % Monocytes % 4.0 % Eosinophils % 3.5 % Basophils % 0.5 % Neutrophils # 3.0 (1.6-8.9) K/mcL Lymphocytes # 0.9 (0.6-4.6) K/mcL Monocytes # 0.2 (0.0-1.3) K/mcL Eosinophils # 0.2 (0.0-0.6) K/mcL Basophils # 0.0 (0.0-0.2) K/mcL Immature Plt Fraction 3.4 (1.1-6.1) % Sodium 135 L (136-145) mEq/L Potassium 4.6 (3.5-5.1) mEq/L Chloride 101 (98-107) mEq/L Carbon Dioxide 26 (23-29) mEq/L BUN 24 H (8-23) mg/dL Creatinine 1.07 (0.70-1.30) mg/dL Est GFR ( Amer) > 60 (> 60) Est GFR (Non-Af Amer) > 60 (> 60) BUN/Creatinine Ratio 22 (6-26) Glucose 163 H (70-105) mg/dL Calculated Osmolality 288 (280-300) Calcium 9.7 (8.6-10.3) mg/dL - Radiology Data Radiology results reviewed: Yes I reviewed the patient's radiology results. Lumbar Spine CT 12/20/18 12:06 IMPRESSION: 1. L4-5 lumbar fusion with left hemilaminectomy. 2. Moderate retrolisthesis of L5 over S1 with significant central stenosis at this level as well as bilateral foraminal stenosis worse on the left. 3. L3-4 central stenosis related to facet arthropathy. D/ / 12/20/2018 13:36:23 Guera Alvarez MD / marixa Interpreting Provider: Guera Alvarez MD Thoracic Spine CT 12/20/18 12:06 IMPRESSION: Unremarkable CT of the thoracic spine. D/ / Ahsan Bullock / Ahsan Bullock Interpreting Provider: Ahsan Bullock Attestation Statement - Attestation Attestation: Dr Winn note / Attestation: Patient was seen in conjunction with emergency medicine resident Dr. Jeff. Please see his charting for complete documentation. I spent [id number] time with the patient and agree with the patient's treatment and disposition. Acute on Chronic. Labs and Imaging Stable. Patient Unable to Him. This Time. Attempted to Admit the Patient Directly to a [facility] but His Status Will Not Allow This. Medically Stable at This Time
[2018-12-20] MEDS ORDERED: Acetaminophen 325 MG TABLET PO PRN (16:19)
[2018-12-20] MEDS ORDERED: Naloxone 0.4 MG/ML INJ IVP PRN (16:19)
[2018-12-20] MEDS ORDERED: Mag Hydrox/Al Hydrox/Simeth 30 ML UDC PO PRN (16:19)
[2018-12-20] MEDS ORDERED: MOM Conc 10 ML UD.LIQ PO PRN (16:19)
--- NOTE | 2018-12-20 16:29 | Internal Med History&Physical ---
Date of Encounter: 12/20/18 Time of Encounter: 16:25 Internal Medicine - H&P: HPI Admitted From: Home Plans for Post Hospital Care: Transfer [facility] History of present illness: Mr. Grewal is a 63 year old male with history of 3 prior CVA, history of chronic back pain presents emergency department with worsening back pain after recent fall. States about 3 weeks ago in his bedroom he attempted to sit on his bed and missed. He landed on his butt and since then has had excruciating pain. Reports 10 of 10 pain. Worse with movements. Mostly on the lower back across to the left. He denies headache injury or trauma. Denies any abdominal pain. At baseline he does have left side weakness mostly in the left leg. Since inj ury a has gotten worse. He is now walking with some assistance but drags his left leg. He does not take any anticoagulants. He takes chronic pain medications oxycodone 10 mg. His pain specialists is in [place]. He recently was discharged home from a nursing facility prior to the fall with similar circumstances. He lives with his but she currently is in [place]. He has been unable to take care of himself for the past several days and his friend drove here to be evaluated. History of fusion in the past. In the ED, patient vital signs were stable, labs were unremarkable, CT of thoracic and lumbar spine was performed which revealed L4-L5 lumbar fusion with left hemilaminectomy, moderate retrolithiesis of L5 over S1 with significant central stenosis as well as bilateral foraminal stenosis, and a L3-L4 central stenosis related to facet arthropathy. Spine surgeon Dr. Vincent was called, he will see the patient. Patient will be admitted for further evaluation. CODE STATUS discussed with patient, he wishes to be full code. Past Med Surg Social Fam HX - Past Medical History Medical history: cirrhosis, CHF, coronary artery disease, CVA, diabetes, GERD, hyperlipidemia, hypertension, myocardial infarction, thyroid disease, other Additional medical history: no deficits from previous CVA's. 3 CVAs. Type II Diabetic Psychiatric history: no psych history - Past Surgical History Surgical History: appendectomy, cholecystectomy, coronary bypass (CABG), orthopedic, other, pacemaker/AICD (Placed in 1992 at [facility]) Additional surgical history: back surgery, Left Hip replacement - Social History Smoking Status: Never smoker Smokeless Tobacco Status: No Alcohol use: none Drug use: none - Family History Father Family Member Ethnicity: Non- Living Status: Hx Family Cardiac Disorders: Yes (PR, Bypass, CAD) Brother Family Member Ethnicity: Non- Living Status: Hx Family Cardiac Disorders: Yes (PR, CAD) Sister Family Member Ethnicity: Non- Living Status: Still Living Mother Family Member Ethnicity: Non- Living Status: Hx Family Cardiac Disorders: No Internal Medicine - H&P: Meds Aspirin 81 mg PO DAILY #30 tab.chew 08/06/16 [Rx] Atorvastatin [Lipitor] 40 mg PO DAILY 03/17/17 [History] Ropinirole HCl [Requip] 4 mg PO DAILY 05/01/17 [History] Gabapentin [Neurontin] 900 mg PO TID #30 capsule 07/02/17 [Rx] Pantoprazole Sodium 40 mg PO DAILY 01/01/18 [History] OxyCODONE Immed Rel [Roxicodone 10 MG] 10 mg PO QID PRN 2 Days #8 tab 01/06/18 [Rx] Omeprazole [PriLOSEC] 40 mg PO DAILY 08/05/18 [History] Levothyroxine Sodium 75 mcg PO DAILY 08/06/18 [History] Magnesium Oxide [Mag-Ox] 400 mg PO BID PRN 08/06/18 [History] Metoprolol XL (24 HR) Succ [Toprol Xl] 25 mg PO DAILY 08/06/18 [History] Promethazine [Phenergan] 25 mg PO TID PRN 08/06/18 [History] Trazodone HCl 200 mg PO HS 08/06/18 [History] Allergy/AdvReac Type Severity Reaction Status Date / Time codeine Allergy Mild Itching Verified 08/06/18 13:19 Penicillins AdvReac Severe COMA Verified 08/06/18 13:19 nitroglycerin AdvReac Mild See Verified 08/06/18 13:19 Comments NITRATES Allergy Mild "DROPS Uncoded 08/06/18 13:19 BLOOD PRESSURE, PASS OUT" [place] Allergy Mild "VOMITING, Uncoded 08/06/18 13:19 DIARRHEA" All Systems PM: A 10-system review of systems was performed and is negative for pertinent findings except as documented above in the HPI. Review of systems: REVIEW OF SYSTEMS: CONSTITUTIONAL: No weight loss, fever, chills, weakness or fatigue. HEENT: Eyes: No visual loss, blurred vision, double vision or yellow sclerae. Ears, Nose, Throat: No hearing loss, sneezing, congestion, runny nose or sore throat. SKIN: No rash or itching. CARDIOVASCULAR: No chest pain, chest pressure or chest discomfort. No palpitations or edema. RESPIRATORY: No shortness of breath, cough or sputum. GASTROINTESTINAL: No anorexia, nausea, vomiting or diarrhea. No abdominal pain or blood. GENITOURINARY: No dysuria, urgency, or frequency. NEUROLOGICAL: see HPI. MUSCULOSKELETAL: No muscle, back pain, joint pain or stiffness. HEMATOLOGIC: No anemia, bleeding or bruising. LYMPHATICS: No enlarged nodes. No history of splenectomy. PSYCHIATRIC: No history of depression or anxiety. ENDOCRINOLOGIC: No reports of sweating, cold or heat intolerance. No polyuria or polydipsia. - Constitutional Vitals: Temp Pulse Resp BP Pulse Ox 98 F 51 16 123/52 99 12/20/18 11:41 12/20/18 11:41 12/20/18 11:41 12/20/18 11:41 12/20/18 11:41 General appearance: Present: cooperative, A&O X 3, answers questions appropriately Exam: PHYSICAL EXAMINATION: GENERAL APPEARANCE: The patient is alert, oriented and in no acute distress. HEENT: Head is normocephalic. The sinuses are nontender. Pupils are equal and reactive. The nares are patent. Oropharynx clear without lesions. NECK: Supple without lymphadenopathy. HEART: Regular rate and rhythm. LUNGS: No crackles or wheezes are heard. ABDOMEN: Soft, nontender, nondistended with good bowel sounds heard. Inguinal area is normal. EXTREMITIES: Without cyanosis, clubbing or edema. NEUROLOGICAL: left leg muscle strength 3/5 with sensory deficit and diminished DTR. right side normal. SKIN: Warm and dry without any rash. Internal Med - H&P Results - Labs CBC & Chem 7: 12/20/18 12:31 12/20/18 12:31 Labs: Short CBC 12/20/18 Range/Units 12:31 WBC 4.3 (4.3-11.1) K/mcL Hgb 11.1 L (12.9-16.9) g/dL Hct 35.8 L (37.5-50.1) % Plt Count 100 L (140-400) K/mcL Neutrophils # 3.0 (1.6-8.9) K/mcL BMP 12/20/18 12:31 Sodium 135 L Potassium 4.6 Chloride 101 Carbon Dioxide 26 BUN 24 H Creatinine 1.07 Glucose 163 H Calcium 9.7 - Impressions ITS Impressions Lumbar Spine CT 12/20/18 12:06 IMPRESSION: 1. L4-5 lumbar fusion with left hemilaminectomy. 2. Moderate retrolisthesis of L5 over S1 with significant central stenosis at this level as well as bilateral foraminal stenosis worse on the left. 3. L3-4 central stenosis related to facet arthropathy. D/ / 12/20/2018 13:36:23 Guera Alvarez MD / marixa Interpreting Provider: Guera Alvarez MD Thoracic Spine CT 12/20/18 12:06 IMPRESSION: Unremarkable CT of the thoracic spine. D/ / Ahsan Bullock / Ahsan Bullock Interpreting Provider: Ahsan Bullock - Assessment and Plan (1) Unable to ambulate Current Visit: Yes Status: Acute Assessment and plan: 63-year-old gentleman with history of CVA, chronic back pain status post lumbar spine fusion and laminectomy, who suffered a fall recently, presented with pain in the back and unable to ambulate. He reported that he lost control of bowel and bladder immediately after the event, but he has regained control of both bowel and bladder right now. He also reported left leg weakness and he described that he has to drag the left leg to walk. CT of the lumbar spine showed L5-S1 retrolisthesis and L3-L4 spinal stenosis due to facet arthropathy. Spine surgeon Dr. Vincent was consulted, appreciate help. Pain control. PT/OT consult. (2) Lumbar back pain with radiculopathy affecting left lower extremity Current Visit: Yes Status: Acute Assessment and plan: Same as above. (3) CAD (coronary artery disease) of bypass graft Current Visit: No Status: Chronic Assessment and plan: No chest pain, continue home medication. Qualifiers: [place] vs. transplanted heart: [place] heart Associated angina: angina presence unspecified Qualified Code(s): I25.810 - Atherosclerosis of coronary artery bypass graft(s) without angina pectoris (4) History of CVA (cerebrovascular accident) Current Visit: No Status: Chronic Assessment and plan: continue home medication. (5) Diabetes mellitus Current Visit: No Status: Chronic Assessment and plan: Insulin sliding scale. Qualifiers: Diabetes mellitus type: type 2 Diabetes mellitus exterminator insulin use: without exterminator use Diabetes mellitus complication status: with kidney complications Diabetes mellitus complication detail: with chronic kidney disease Chronic kidney disease stage: stage 3 (moderate) Qualified Code(s): E11.22 - Type 2 diabetes mellitus with diabetic chronic kidney disease; N18.3 - Chronic kidney disease, stage 3 (moderate) (6) Hypertension Current Visit: No Status: Chronic Assessment and plan: BP well controlled, continue monitoring, continue home medication. Qualifiers: Hypertension type: essential hypertension Qualified Code(s): I10 - Essential (primary) hypertension (7) Hyperlipemia Current Visit: No Status: Chronic Assessment and plan: Continue home medication. Qualifiers: Hyperlipidemia type: unspecified Qualified Code(s): E78.5 - Hyperlipidemia, unspecified (8) Osteoarthritis of left hip Current Visit: No Status: Chronic Assessment and plan: Pain control, monitoring. Qualifiers: Osteoarthritis type: unspecified Qualified Code(s): M16.12 - Unilateral primary osteoarthritis, left hip (9) DVT prophylaxis Current Visit: Yes Status: Acute Assessment and plan: Heparin subcutaneous. - Time Spent With Patient Total time spent is greater than 50% in coordination of care (as documented) at patient's floor/unit and/or counseling patient: Greater than 35 minutes
[2018-12-20] MEDS ORDERED: Dextrose Gel 15 GM/37.5 ML TUBE PO PRN ×2 (16:42)
[2018-12-20] MEDS ORDERED: *HR* Dextrose 50 % in Water (Syg) 50 ML SYRINGE IVP PRN (16:42)
[2018-12-20] MEDS ORDERED: D5% in Water 1,000 ML IVC PRN (16:42)
[2018-12-20 17:36] LABS: Hematocrit 32.8 % (37.5-50.1); Hemoglobin 10.3 g/dL (12.9-16.9); Mean Corpuscular HGB Conc 31.4 g/dL (31.6-35.5); Mean Corpuscular Hemoglobin 28.5 pg (28.0-33.3); Mean Corpuscular Volume 90.6 fL (83.0-100.0); Mean Platelet Volume 11.1 fL (9.4-12.4); Platelet Count 101 K/mcL (140-400); Red Blood Count 3.62 M/mcL (4.19-5.50); Red Cell Distribution Width 13.4 % (11.5-14.5); White Blood Count 4.5 K/mcL (4.3-11.1)
[2018-12-20] MEDS: Ondansetron 4 MG/2 ML VIAL IVP PRN (20:36)
[2018-12-20] MEDS: *HR* OxyCODONE Immed Rel 5 MG TABLET PO PRN (20:41)
[2018-12-20] MEDS: *HR* Heparin 5,000 UNIT/ML VIAL SQ SCH (20:43)
[2018-12-20] MEDS: Insulin LISPRO 300 UNITS/3 ML VIAL SQ SCH (21:17)
[2018-12-20] MEDS: DiphenhydraMINE CREAM 28.4 GM TUBE TP PRN (23:48)
[2018-12-21] MEDS ORDERED: Acetaminophen IV 500 MG/50 ML INFUS..BTL IVPB ONE (03:31)
[2018-12-21] MEDS: Ondansetron 4 MG/2 ML VIAL IVP PRN (04:48)
[2018-12-21] MEDS: *HR* Heparin 5,000 UNIT/ML VIAL SQ SCH ×2 (04:48→18:18)
[2018-12-21] MEDS ORDERED: Artificial Tears SOLN 15 ML BOTTLE BOTH EYES PRN (04:57)
[2018-12-21 06:19] LABS: BUN/Creatinine Ratio 21 (6-26); Blood Urea Nitrogen 26 mg/dL (8-23); Carbon Dioxide 29 mEq/L (23-29); Chloride 103 mEq/L (98-107); Glucose 135 mg/dL (70-105); Osmolality,Calculated 289 (280-300); Potassium 4.7 mEq/L (3.5-5.1); Sodium 136 mEq/L (136-145); eGFR For African Americans > 60 (> 60); eGFR For Non-African Americans > 60 (> 60)
[2018-12-21] MEDS: *HR* OxyCODONE Immed Rel 5 MG TABLET PO PRN ×3 (06:44→19:22)
[2018-12-21] MEDS ORDERED: Magnesium Oxide 400 MG TABLET PO PRN (08:11)
[2018-12-21] MEDS: Insulin LISPRO 300 UNITS/3 ML VIAL SQ SCH ×4 (08:12→21:03)
[2018-12-21] MEDS: Aspirin 81 MG TAB.CHEW PO SCH (08:36)
[2018-12-21] MEDS: *HR* Promethazine 25 MG/ML VIAL IVP PRN ×2 (08:38→18:18)
--- NOTE | 2018-12-21 10:42 | Internal Med Progress Note ---
Hospitalist Progress Note - Encounter Date of Encounter: 12/21/18 Time of Encounter: 10:40 - Subjective Interval History: Patient seen and examined in the room. Back pain and leg pain have improved with pain medications. - Exam Vitals: Temp Pulse Resp BP Pulse Ox 97.5 F L 63 18 117/78 99 12/21/18 06:44 12/21/18 06:44 12/21/18 06:44 12/21/18 06:44 12/21/18 06:44 Exam: PHYSICAL EXAMINATION: GENERAL APPEARANCE: The patient is alert, oriented and in no acute distress. HEENT: Head is normocephalic. The sinuses are nontender. Pupils are equal and reactive. The nares are patent. Oropharynx clear without lesions. NECK: Supple without lymphadenopathy. HEART: Regular rate and rhythm. LUNGS: No crackles or wheezes are heard. ABDOMEN: Soft, nontender, nondistended with good bowel sounds heard. Inguinal area is normal. EXTREMITIES: Without cyanosis, clubbing or edema. NEUROLOGICAL: left leg muscle strength 3/5 with sensory deficit and diminished D TR. right side normal. SKIN: Warm and dry without any rash. - Assessment and Plan (1) Unable to ambulate Current Visit: Yes Status: Acute Assessment and Plan: 12/20 63-year-old gentleman with history of CVA, chronic back pain status post lumbar spine fusion and laminectomy, who suffered a fall recently, presented with pain in the back and unable to ambulate. He reported that he lost control of bowel and bladder immediately after the event, but he has regained control of both bowel and bladder right now. He also reported left leg weakness and he described that he has to drag the left leg to walk. CT of the lumbar spine showed L5-S1 retrolisthesis and L3-L4 spinal stenosis due to facet arthropathy. Spine surgeon Dr. Vincent was consulted, appreciate help. Pain control. PT/OT consult. 12/21 Neurological status stable, denies loss control of bowel or bladder. Back pain and leg pain controlled. Orthopedics following, appreciate help. (2) Lumbar back pain with radiculopathy affecting left lower extremity Current Visit: Yes Status: Acute Assessment and Plan: Same as above. (3) CAD (coronary artery disease) of bypass graft Current Visit: No Status: Chronic Assessment and Plan: No chest pain, continue home medication. (4) History of CVA (cerebrovascular accident) Current Visit: No Status: Chronic Assessment and Plan: continue home medication. (5) Diabetes mellitus Current Visit: No Status: Chronic Assessment and Plan: Insulin sliding scale. (6) Hypertension Current Visit: No Status: Chronic Assessment and Plan: BP well controlled, continue monitoring, continue home medication. (7) Hyperlipemia Current Visit: No Status: Chronic Assessment and Plan: Continue home medication. (8) Osteoarthritis of left hip Current Visit: No Status: Chronic Assessment and Plan: Pain control, monitoring. (9) DVT prophylaxis Current Visit: Yes Status: Acute Assessment and Plan: Heparin subcutaneous. - Time Spent with Patient Total time spent is greater than 50% in coordination of care (as documented) at patient's floor/unit and/or counseling patient: Greater than 35 minutes Plan of Care Discussed with: patient Internal Medicine: Result - Labs CBC & Chem 7: 12/20/18 17:01 12/21/18 05:41 Labs: Short CBC 12/20/18 12/20/18 Range/Units 12:31 17:01 WBC 4.3 4.5 (4.3-11.1) K/mcL Hgb 11.1 L 10.3 L (12.9-16.9) g/dL Hct 35.8 L 32.8 L (37.5-50.1) % Plt Count 100 L 101 L (140-400) K/mcL Neutrophils # 3.0 (1.6-8.9) K/mcL BMP 12/20/18 12/21/18 12:31 05:41 Sodium 135 L 136 Potassium 4.6 4.7 Chloride 101 103 Carbon Dioxide 26 29 BUN 24 H 26 H Creatinine 1.07 1.21 Glucose 163 H 135 H Calcium 9.7 9.0 - Impressions Impressions Lumbar Spine CT 12/20/18 12:06 IMPRESSION: 1. L4-5 lumbar fusion with left hemilaminectomy. 2. Moderate retrolisthesis of L5 over S1 with significant central stenosis at this level as well as bilateral foraminal stenosis worse on the left. 3. L3-4 central stenosis related to facet arthropathy. D/ / 12/20/2018 13:36:23 Guera Alvarez MD / marixa Interpreting Provider: Guera Alvarez MD Thoracic Spine CT 12/20/18 12:06 IMPRESSION: Unremarkable CT of the thoracic spine. D/ / Ahsan Bullock / Ahsan Bullock Interpreting Provider: Ahsan Bullock Consult Discharge Plan - Plan Referrals: NONE,PCP [Primary Care Provider] - (3) CAD (coronary artery disease) of bypass graft Qualifiers: [place] vs. transplanted heart: [place] heart Associated angina: angina presence unspecified Qualified Code(s): I25.810 - Atherosclerosis of coronary artery bypass graft(s) without angina pectoris (5) Diabetes mellitus Qualifiers: Diabetes mellitus type: type 2 Diabetes mellitus long-term insulin use: without long-term use Diabetes mellitus complication status: with kidney complications Diabetes mellitus complication detail: with chronic kidney disease Chronic kidney disease stage: stage 3 (moderate) Qualified Code(s): E11.22 - Type 2 diabetes mellitus with diabetic chronic kidney disease; N18.3 - Chronic kidney disease, stage 3 (moderate) (6) Hypertension Qualifiers: Hypertension type: essential hypertension Qualified Code(s): I10 - Essential (primary) hypertension (7) Hyperlipemia Qualifiers: Hyperlipidemia type: unspecified Qualified Code(s): E78.5 - Hyperlipidemia, unspecified (8) Osteoarthritis of left hip Qualifiers: Osteoarthritis type: unspecified Qualified Code(s): M16.12 - Unilateral primary osteoarthritis, left hip
[2018-12-21] MEDS: DiphenhydraMINE CREAM 28.4 GM TUBE TP PRN ×2 (13:18→18:23)
[2018-12-21] MEDS: traZODone 50 MG TABLET PO SCH (21:05)
[2018-12-21] MEDS: Gabapentin 300 MG CAPSULE PO SCH (21:06)
[2018-12-21] MEDS: rOPINIRole 1 MG TABLET PO SCH (21:06)
[2018-12-22 04:26] LABS: Basophils % 0.3 %; Eosinophils # 0.2 K/mcL (0.0-0.6); Eosinophils % 5.4 %; Hematocrit 34.3 % (37.5-50.1); Hemoglobin 10.9 g/dL (12.9-16.9); Immature Granulocytes % 0.5 % (0-4); Lymphocytes # 1.5 K/mcL (0.6-4.6); Lymphocytes % 38.6 %; Mean Corpuscular HGB Conc 31.8 g/dL (31.6-35.5); Mean Corpuscular Hemoglobin 28.5 pg (28.0-33.3); Mean Corpuscular Volume 89.8 fL (83.0-100.0); Mean Platelet Volume 11.4 fL (9.4-12.4); Monocytes # 0.3 K/mcL (0.0-1.3); Monocytes % 6.9 %; Neutrophils # 1.9 K/mcL (1.6-8.9); Platelet Count 103 K/mcL (140-400); Red Blood Count 3.82 M/mcL (4.19-5.50); Red Cell Distribution Width 13.3 % (11.5-14.5); Segmented Neutrophils % 48.3 %; White Blood Count 3.9 K/mcL (4.3-11.1)
[2018-12-22 04:39] LABS: BUN/Creatinine Ratio 21 (6-26); Blood Urea Nitrogen 25 mg/dL (8-23); Calcium 9.3 mg/dL (8.6-10.3); Carbon Dioxide 25 mEq/L (23-29); Chloride 103 mEq/L (98-107); Glucose 170 mg/dL (70-105); Osmolality,Calculated 286 (280-300); Potassium 5.2 mEq/L (3.5-5.1); Sodium 134 mEq/L (136-145); eGFR For African Americans > 60 (> 60); eGFR For Non-African Americans > 60 (> 60)
[2018-12-22] MEDS: Ondansetron 4 MG/2 ML VIAL IVP PRN (05:22)
[2018-12-22] MEDS: *HR* Heparin 5,000 UNIT/ML VIAL SQ SCH ×2 (05:23→18:10)
[2018-12-22] MEDS: *HR* OxyCODONE Immed Rel 5 MG TABLET PO PRN ×2 (05:31→12:19)
[2018-12-22] MEDS: Insulin LISPRO 300 UNITS/3 ML VIAL SQ SCH ×5 (07:32→20:32)
[2018-12-22] MEDS: Aspirin 81 MG TAB.CHEW PO SCH (08:40)
--- NOTE | 2018-12-22 13:37 | Neurology - Consult Note ---
Date of Encounter: 12/22/18 Time of Encounter: 13:23 Assessment and Plan (1) Lumbar back pain with radiculopathy affecting left lower extremity Current Visit: Yes Status: Acute Neurology consulted to evaluate or LLE weakness in the setting of lumbar pain and pain radiating down left leg to left foot The LLE weakness is chronic s/p a Lt hip surgery "years ago" per the patient; however it is worse over the last three weeks Review of his medical records in [facility] reveals a missed visit in 05/[address] Morales for evaluation of the same He has recently been worked up at [facility] for the same; during that admission neurology and neurosurgery evaluated the patient and could not identify any etiology to explain his LLE weakness An LP at [facility] showed mildly elevated protein of 44 and the differential at d/c included conversion disorder DDX: conversion disorder vs diabetic amyotrophic neuropathy vs lumbar plexopathy On exam today he is displaying gross motor weakness of the LLE and new c/o LUE weakness. DTR's are arefelxic and he has sensory loss b/l from the plantar/dorsal surface of the feet to b/l vastus. Etiology unclear, ddx as stated above. Symptoms have been ongoing with a waxing and waning presentation since 09/2018. With an acute CVA one would not expect pain which he is reporting, also you would expect to see ischemic changes in the frontal lobe on prior imaging if this were an of an ischemic origin. No need for repeat CT head at this time with low suspicion for an acute ischemic event. In regards to the amyotrophic neuropathy this could be evaluated outpatient in the neurology clinic with EMG. Recommend f/u with neurology at d/c for EMG. PLAN: Rec PT/OT evaluation Rec psych consultation with possibility of conversion disorder (2) Physical deconditioning Current Visit: No Status: Acute (3) Unable to ambulate Current Visit: Yes Status: Acute History of Present Illness Chief complaint: LLE gross motor deficit of unknown etiology HPI: Mr. Grewal is a 63 year old male with a PMH of cirrhosis, CHF, CAD, CVA, DM, HTN, HLD, VT, chronic back pain and hypothyroidism who presents to [facility] with a CC back pain, and weakness S/P falls 3-weeks ago. He reports that he has had chronic LLE weakness since a Lt hip surgery a few years ago but notes that it is much weaker since the fall. He had a similar event in Aug with a fall at [facility] prompting an admission at [facility] during which he was evaluated by neurology and neurosurgery. During that time an etiology for his LLE weakness was not ascertained. It was thought to possibly be caused by an atypical GBS or a component of conversion disorder noting that while he did display LLE weakness he was witness to be able to move the LLE during his sleep and subconsciously during PT/OT at [facility]. Today he reports that the LLE weakness is persistent and he is perservating on his low back pain. He states that the limb is not painful to manual manipula tion but notes low back pain with such. He denies having any recent illness, ill contacts, recent travel, headaches, neck pain/stiffness, visual disturbances, dysphagia, dysarthria, parasthesias. He only complaints relate to the focal LLE weakness and today he is now reporting LUE weakness as well, although, he notes the LUE weakness as chronic deficits from prior CVA x3 and reports a waxing and waning status. Today he is mostly concerned that he is unable to lift his leg on his own volition and is concerned that the weakness is a repeat episode which resulted in the [facility] admission. He has had CT imaging of both the lumbar and thoracic spine which did not identify any acute etiology to explain the weakness. Past Med Surg Social Fam HX - Past Medical History Medical history: cirrhosis, CHF, coronary artery disease, CVA, diabetes, GERD, hyperlipidemia, hypertension, myocardial infarction, thyroid disease, other Additional medical history: no deficits from previous CVA's. 3 CVAs. Type II D iabetic. Pericarditis in 1970s Psychiatric history: no psych history - Past Surgical History Surgical History: appendectomy, coronary bypass (CABG), pacemaker Additional surgical history: back surgery, Left Hip replacement, pacemaker placed in 1992 (placed at [facility]) - Social History Smoking Status: Never smoker Smokeless Tobacco Status: No Alcohol use: none Drug use: none - Family History Father Family Member Ethnicity: Non- Living Status: Hx Family Cardiac Disorders: Yes (CABG, 5 bypasses) Brother Family Member Ethnicity: Non- Living Status: Hx Family Cardiac Disorders: Yes (CABGs, VT) Sister Family Member Ethnicity: Non- Living Status: Still Living Mother Family Member Ethnicity: Non- Living Status: Hx Family Cardiac Disorders: No Medications and Allergies Aspirin 81 mg PO DAILY #30 tab.chew 08/06/16 [Rx] Atorvastatin [Lipitor] 40 mg PO HS 03/17/17 [History] Ropinirole HCl [Requip] 4 mg PO HS 05/01/17 [History] Pantoprazole Sodium 40 mg PO DAILY 01/01/18 [History] OxyCODONE Immed Rel [Roxicodone 10 MG] 10 mg PO QID PRN 2 Days #8 tab 01/06/18 [Rx] Omeprazole [PriLOSEC] 40 mg PO HS 08/05/18 [History] Levothyroxine Sodium 75 mcg PO DAILY 08/06/18 [History] Magnesium Oxide [Mag-Ox] 400 mg PO BID PRN 08/06/18 [History] Metoprolol XL (24 HR) Succ [Toprol Xl] 25 mg PO DAILY PRN 08/06/18 [History] Promethazine [Phenergan] 25 mg IM TID PRN 08/06/18 [History] Trazodone HCl 100 mg PO HS 08/06/18 [History] Gabapentin [Neurontin] 900 mg PO TID 12/20/18 [History] Tizanidine HCl 4 mg PO HS 12/21/18 [History] Allergy/AdvReac Type Severity Reaction Status Date / Time codeine Allergy Mild Itching Verified 12/21/18 14:30 Penicillins AdvReac Severe COMA Verified 12/21/18 14:30 nitroglycerin AdvReac Mild See Verified 12/21/18 14:30 Comments NITRATES Allergy Mild "DROPS Uncoded 12/21/18 14:30 BLOOD PRESSURE, PASS OUT" NUBAIN Allergy Mild "VOMITING, Uncoded 12/21/18 14:30 DIARRHEA" All Systems: The remainder of the systems were reviewed and are negative - Constitutional Constitutional ROS IM: fatigue, malaise, weakness - Musculoskeletal Musculoskeletal ROS IM: muscle weakness (LLE), myalgias, no arthralgias, no numbness, no tingling - Neurological Neurological ROS: focal weakness (LLE), frequent falls, radicular pain (LLE), weakness (LLE), no abnormal speech, no headache(s), no numbness, no paresthesias, no syncope, no tingling Physical Examination - Vital Signs Vital Signs: Initial Vital Signs Temp Pulse Resp BP Pulse Ox 98 F 51 16 123/52 99 12/20/18 11:00 12/20/18 11:00 12/20/18 11:00 12/20/18 11:12/20/18 11:00 - Constitutional General appearance: comfortable - Neurologic Motor examination - right side: 10/22: deltoids, biceps, triceps, escrow officer, hip flexors, tibialis Anterior, quadriceps, toe extension (EHL), plantarflexion Motor examination - left side: 07/24: hip flexors, quadriceps, tibialis Anterior, toe extension (EHL), plantarflexion, 09/21: deltoids, biceps, triceps, escrow officer Detailed sensory examination: other (SENSORY LOSS B/L LEGS EXTENDING FROM DORSUM OF B/L FEET TO B/L THIGHS) Reflex and gait examination: other (DIFFUSE AREFLEXIA) Reflexes: Biceps: 0, Triceps: 0, Brachioradialis: 0, Patella: 0, Achilles: 0 Mental Status Examination: awake, alert, oriented to person, oriented to place, oriented to time, follows commands appropriately, answers questions appropriately Cranial nerve examination: PERRL, EOMI, visual sanchez intact, corneal reflexes brisk symmetrically, sensory to face intact, mastication intact, no facial asymmetry is present, no dysarthria, hearing is intact symmetrically, soft palate elevates bilaterally upon phonation, gag reflex intact, flexes SCM and trapezius muscles symmetrically with full power, tongue protrudes midline, no atrophy or facial fasiculations present Cerebellar examination: no dysmetria Results - Laboratory Findings CBC and BMP: 12/22/18 03:55 12/22/18 03:55 Abnormal lab findings: Abnormal lab results WBC 3.9 K/mcL (4.3-11.1) L 12/22/18 03:55 RBC 3.82 M/mcL (4.19-5.50) L 12/22/18 03:55 Hgb 10.9 g/dL (12.9-16.9) L 12/22/18 03:55 Hct 34.3 % (37.5-50.1) L 12/22/18 03:55 MCHC 31.4 g/dL (31.6-35.5) L 12/20/18 17:01 Plt Count 103 K/mcL (140-400) L 12/22/18 03:55 Sodium 134 mEq/L (136-145) L 12/22/18 03:55 Potassium 5.2 mEq/L (3.5-5.1) H 12/22/18 03:55 BUN 25 mg/dL (8-23) H 12/22/18 03:55 Glucose 170 mg/dL (70-105) H 12/22/18 03:55 POC Glucose 148 mg/dL (70-99) H 12/21/18 20:51 - Diagnostic Findings Additional findings: CT/CT thoracic spine wo con IMPRESSION: Unremarkable CT of the thoracic spine. CT/CT lumbar spine wo con IMPRESSION: 1. L4-5 lumbar fusion with left hemilaminectomy. 2. Moderate retrolisthesis of L5 over S1 with significant central stenosis at this level as well as bilateral foraminal stenosis worse on the left. 3. L3-4 central stenosis related to facet arthropathy. Consult Discharge Plan - Plan Referrals: NONE,PCP [Primary Care Provider] -
[2018-12-22] MEDS: Ondansetron ODT 4 MG TAB.RAPDIS SL PRN (18:12)
--- NOTE | 2018-12-22 18:58 | Internal Med Progress Note ---
Hospitalist Progress Note - Encounter Date of Encounter: 12/22/18 Time of Encounter: 10:00 - Subjective Interval History: Patient was seen and examined at bedside continues to complain of lower leg extremity weakness as well as lumbar pain radiating down to his foot. Patient is requesting pain medication. Discussed treatment plan with the patient who verbalized understanding - Exam Vitals: Temp Pulse Resp BP Pulse Ox 98.4 F 60 16 95/56 97 12/22/18 18:45 12/22/18 18:45 12/22/18 18:45 12/22/18 18:45 12/22/18 18:45 Exam: PHYSICAL EXAMINATION: GENERAL APPEARANCE: The patient is alert, oriented and in no acute distress. HEENT: Head is normocephalic. The sinuses are nontender. Pupils are equal and reactive. The nares are patent. Oropharynx clear without lesions. NECK: Supple without lymphadenopathy. HEART: Regular rate and rhythm. LUNGS: No crackles or wheezes are heard. ABDOMEN: Soft, nontender, nondistended with good bowel sounds heard. Inguinal area is normal. EXTREMITIES: Without cyanosis, clubbing or edema. NEUROLOGICAL: left leg muscle strength 3/5 with sensory deficit and diminished DTR. right side normal. SKIN: Warm and dry without any rash. - Assessment and Plan (1) Unable to ambulate Current Visit: Yes Status: Acute Assessment and Plan: 12/20 63-year-old gentleman with history of CVA, chronic back pain status post lumbar spine fusion and laminectomy, who suffered a fall recently, presented with pain in the back and unable to ambulate. He reported that he lost control of bowel and bladder immediately after the event, but he has regained control of both bowel and bladder right now. He also reported left leg weakness and he described that he has to drag the left leg to walk. CT of the lumbar spine showed L5-S1 retrolisthesis and L3-L4 spinal stenosis due to facet arthropathy. Spine surgeon Dr. Vincent was consulted, appreciate help. Pain control. PT/OT consult. 12/21 Neurological status stable, denies loss control of bowel or bladder. Back pain and leg pain controlled. Orthopedics following, appreciate help. 12/22 Orthopedic spine did see the patient today and felt that symptoms did not correl ate with findings on CT scan and advised neurology consult Patient was seen and evaluated by neurology today recommending PT OT evaluation concern of possibility of conversion disorder apparently patient did have an extensive workup at [facility] evaluated by neurology and neurosurgery and could not identify any etiology to explain his left lower extremity weakness. LP at [facility] showed mildly elevated protein of 44. Differential at the scene included conversion disorder. Neurology is low suspicion for acute ischemic event- Amyotrophic neuropathy can be evaluated as outpatient in neurology clinic with EMG Will consult psychiatry (2) CAD (coronary artery disease) of bypass graft Current Visit: No Status: Chronic Assessment and Plan: No chest pain, continue home medication. (3) History of CVA (cerebrovascular accident) Current Visit: No Status: Chronic Assessment and Plan: continue home medication. (4) Diabetes mellitus Current Visit: No Status: Chronic Assessment and Plan: Insulin sliding scale. Accu-Cheks before meals at bedtime (5) Hypertension Current Visit: No Status: Chronic Assessment and Plan: BP well controlled, continue monitoring, continue home medication. (6) Hyperlipemia Current Visit: No Status: Chronic Assessment and Plan: Continue home medication. (7) DVT prophylaxis Current Visit: Yes Status: Acute Assessment and Plan: Heparin subcutaneous. (8) Osteoarthritis of left hip Current Visit: No Status: Chronic Assessment and Plan: Pain control, monitoring. Continue home medications (9) Lumbar back pain with radiculopathy affecting left lower extremity Current Visit: Yes Status: Acute Assessment and Plan: Patient was evaluated by orthospine who felt patient's symptoms did not correlate with findings on CT scan. Advising neurology consult - Time Spent with Patient Total time spent is greater than 50% in coordination of care (as documented) at patient's floor/unit and/or counseling patient: Internal Medicine: Result - Labs CBC & Chem 7: 12/22/18 03:55 12/22/18 03:55 Labs: Short CBC 12/22/18 Range/Units 03:55 WBC 3.9 L (4.3-11.1) K/mcL Hgb 10.9 L (12.9-16.9) g/dL Hct 34.3 L (37.5-50.1) % Plt Count 103 L (140-400) K/mcL Neutrophils # 1.9 (1.6-8.9) K/mcL BMP 12/22/18 03:55 Sodium 134 L Potassium 5.2 H Chloride 103 Carbon Dioxide 25 BUN 25 H Creatinine 1.18 Glucose 170 H Calcium 9.3 Consult Discharge Plan - Plan Referrals: NONE,PCP [Primary Care Provider] - (2) CAD (coronary artery disease) of bypass graft Qualifiers: [place] vs. transplanted heart: [place] Associated angina: angina presence unspecified Qualified Code(s): I25.810 - Atherosclerosis of coronary artery bypass graft(s) without angina pectoris (4) Diabetes mellitus Qualifiers: Diabetes mellitus type: type 2 Diabetes mellitus retirement insulin use: without retirement use Diabetes mellitus complication status: with kidney complications Diabetes mellitus complication detail: with chronic kidney disease Chronic kidney disease stage: stage 3 (moderate) Qualified Code(s): E11.22 - Type 2 diabetes mellitus with diabetic chronic kidney disease; N18.3 - Chronic kidney disease, stage 3 (moderate) (5) Hypertension Qualifiers: Hypertension type: essential hypertension Qualified Code(s): I10 - Essential (primary) hypertension (6) Hyperlipemia Qualifiers: Hyperlipidemia type: unspecified Qualified Code(s): E78.5 - Hyperlipidemia, unspecified (8) Osteoarthritis of left hip Qualifiers: Osteoarthritis type: unspecified Qualified Code(s): M16.12 - Unilateral primary osteoarthritis, left hip
[2018-12-22] MEDS: Gabapentin 300 MG CAPSULE PO SCH (20:02)
[2018-12-22] MEDS: rOPINIRole 1 MG TABLET PO SCH (20:02)
[2018-12-22] MEDS: traZODone 50 MG TABLET PO SCH (20:04)
[2018-12-22] MEDS: *HR* Promethazine 25 MG/ML VIAL IVP PRN (20:04)
[2018-12-22] MEDS: DiphenhydraMINE CREAM 28.4 GM TUBE TP PRN (20:08)
[2018-12-23] MEDS: *HR* Heparin 5,000 UNIT/ML VIAL SQ SCH ×2 (05:29→16:58)
[2018-12-23] MEDS: *HR* OxyCODONE Immed Rel 5 MG TABLET PO PRN ×3 (05:48→17:37)
[2018-12-23] MEDS: Ondansetron ODT 4 MG TAB.RAPDIS SL PRN ×2 (05:48→13:01)
[2018-12-23] MEDS: Aspirin 81 MG TAB.CHEW PO SCH (07:59)
[2018-12-23] MEDS: Insulin LISPRO 300 UNITS/3 ML VIAL SQ SCH ×4 (08:00→20:56)
[2018-12-23] MEDS: *HR* Promethazine 25 MG/ML VIAL IVP PRN ×2 (08:02→21:00)
[2018-12-23 09:16] LABS: BUN/Creatinine Ratio 19 (6-26); Blood Urea Nitrogen 24 mg/dL (8-23); Calcium 9.2 mg/dL (8.6-10.3); Carbon Dioxide 28 mEq/L (23-29); Chloride 104 mEq/L (98-107); Glucose 183 mg/dL (70-105); Osmolality,Calculated 293 (280-300); Potassium 4.8 mEq/L (3.5-5.1); Sodium 137 mEq/L (136-145); eGFR For African Americans > 60 (> 60); eGFR For Non-African Americans 57 (> 60)
--- NOTE | 2018-12-23 09:59 | Neurology Progress Note ---
<Abdulaziz Lowery J - Last Filed: 12/23/18 09:56> Date of Encounter: 12/23/18 Time of Encounter: 09:56 Assessment and Plan (1) Lumbar back pain with radiculopathy affecting left lower extremity Current Visit: Yes Status: Acute Clinically, the patient remains stable. There are no new neurological deficits overnight. He continues to have gross motor weakness of the left leg but now has a flicker of muscle movement of the proximal musculature and left foot. The symptoms are thought to be of a peripheral etiology with differential diagnosis including conversion disorder versus diabetic amyotrophic neuropathy versus lumbar plexopathy. At this juncture we are recommending outpatient neurology follow-up and EMG/MCV study still lower extremities. Further, we are continuing to recommend PT/OT and pain control. There is not any other interventions or neuroimaging to offer from neurology's perspective. We will sign off at this time. Please reconsult should any further need arise. (2) Physical deconditioning Current Visit: No Status: Acute (3) Unable to ambulate Current Visit: Yes Status: Acute Subjective Principal diagnosis: left leg gross motor weakness Interval history: Patient seen in follow-up for gross motor weakness of the left lower extremity. Etiology remains unclear. At the time of my assessment this morning the patient reports that he has regained minimal movement of the left foot but is still unable to lift or move his leg. He denies any new neurologic complaints otherwise. I briefly discussed the need for outpatient follow-up for EMG for further evaluation of his leg weakness and noted that we need to evaluate for a peripheral cause including diabetic amyotrophic neuropathy versus lumbar plexopathy. Further, I discussed the need for continued PT/OT as this may help improve the left leg weakness. Objective - Constitutional Vitals: Temp Pulse Resp BP Pulse Ox 97.7 F 50 18 99/59 95 12/23/18 07:24 12/23/18 07:24 12/23/18 07:24 12/23/18 07:24 12/23/18 07:24 Exam: Examination: General Examination: *CONSTITUTIONAL: Alert and oriented x3, no acute distress *GENERAL APPEARANCE OF PATIENT generally unwell-appearing obese elderly male *EYES: pupils equal, round, reactive to light and accommodation, conjunctiva clear *CARDIOVASCULAR no peripheral edema, distal temperature normal, dorsalis pedis pulses normal. See vital signs Musculoskeletal: *GAIT AND STATION deferred *ASSESSMENT OF MUSCLE STRENGTH IN THE UPPER AND LOWER EXTREMITIES gross left leg weakness of both proximal and distal musculature patient lacks the oly lity to dorsiflex or plantar flex. However, this morning he is able to demonstrate slight movement of the left foot and proximal leg musculature; flicker of muscle witnessed. Right deltoid, bicep, tricep, radar scientist strength 4/5, right hip flexor, anterior tibialis, dorsiflexion of foot 4/5 *MUSCLE TONE IN THE UPPER AND LOWER EXTREMITIES normal. No abnormal movements, fasciculations or atrophy identified. Neurological: *ORIENTATION to person, situation, time and place *RECURRENT AND REMOTE MEMORY intact *ATTENTION AND CONCENTRATION are normal *LANGUAGE FUNCTION no significant aphasia or dysarthia was noted. *FUND OF KNOWLEDGE aware of current events, past history, vocabulary *MENTAL attention span and concentration normal. *CN II optic fundi were normal, no papilledema noted. *CN III,IV, PERRLA extraocular eye movements were full, no nystagmus and no ptosis noted. *CN V shows normal sensation and jaw opens symmetrically. *CN VII shows normal facial movement symmetrically, upper and lower bilaterally. *CN VIII shows no significant hearing loss on exam *CN IX,,X palate elevated symmetrically *CN XI normal strength in the sternocleidomastoid muscles, symmetrical shoulder shrugging. *CN XII tongue protruded in the midline, with normal strength and movement. *SENSORY EXAMINATION light touch intact *REFLEXES: deep tendon reflexes were areflexic diffusely, no pathological reflexes were noted. *CEREBELLAR TESTING normal finger to nose, heel/knee/forrester *PAIN LEVEL 7/10 lumbar back pain with pain radiating into left leg down to left foot - Neurological Exam Motor examination - left side: 1/5: hip flexors, quadriceps, tibialis Anterior, toe extension (EHL), plantarflexion, 3/5: deltoids, biceps, triceps, radar scientist Sensation intact: Present: other (SENSORY LOSS B/L LEGS EXTENDING FROM DORSUM OF B/L FEET TO B/L THIGHS) Reflex and gait examination: other (DIFFUSE AREFLEXIA) Mental Status Examination: Present: awake, alert, oriented to person, oriented to place, oriented to time, follows commands appropriately, answers questions appropriately Cranial nerve examination: Present: PERRL, EOMI, visual sanchez intact, corneal reflexes brisk symmetrically, sensory to face intact, mastication intact, no facial asymmetry is present, no dysarthria, hearing is intact symmetrically, soft palate elevates bilaterally upon phonation, gag reflex intact, flexes SCM and trapezius muscles symmetrically with full power, tongue protrudes midline, no atrophy or facial fasiculations present Cerebellar examination: Present: no dysmetria Results - Laboratory Findings CBC and BMP: 12/22/18 03:55 12/23/18 08:22 Abnormal lab findings: Abnormal lab results WBC 3.9 K/mcL (4.3-11.1) L 12/22/18 03:55 RBC 3.82 M/mcL (4.19-5.50) L 12/22/18 03:55 Hgb 10.9 g/dL (12.9-16.9) L 12/22/18 03:55 Hct 34.3 % (37.5-50.1) L 12/22/18 03:55 MCHC 31.4 g/dL (31.6-35.5) L 12/20/18 17:01 Plt Count 103 K/mcL (140-400) L 12/22/18 03:55 Sodium 134 mEq/L (136-145) L 12/22/18 03:55 Potassium 5.2 mEq/L (3.5-5.1) H 12/22/18 03:55 BUN 24 mg/dL (8-23) H 12/23/18 08:22 Est GFR (Non-Af Amer) 57 (> 60) L 12/23/18 08:22 Glucose 183 mg/dL (70-105) H 12/23/18 08:22 POC Glucose 190 mg/dL (70-99) H 12/22/18 20:23 Consult Discharge Plan - Plan Referrals: NONE,PCP [Primary Care Provider] - <Cynthia Thurston - Last Filed: 12/23/18 16:52> Date of Encounter: 12/23/18 Assessment and Plan (1) Lumbar back pain with radiculopathy affecting left lower extremity Current Visit: Yes Status: Acute (2) Physical deconditioning Current Visit: No Status: Acute (3) Unable to ambulate Current Visit: Yes Status: Acute Objective - Constitutional Vitals: Temp Pulse Resp BP Pulse Ox 97.8 F 49 18 102/64 97 12/23/18 11:30 12/23/18 11:30 12/23/18 11:30 12/23/18 11:30 12/23/18 11:30 Results - Laboratory Findings CBC and BMP: 12/22/18 03:55 12/23/18 08:22 Abnormal lab findings: Abnormal lab results WBC 3.9 K/mcL (4.3-11.1) L 12/22/18 03:55 RBC 3.82 M/mcL (4.19-5.50) L 12/22/18 03:55 Hgb 10.9 g/dL (12.9-16.9) L 12/22/18 03:55 Hct 34.3 % (37.5-50.1) L 12/22/18 03:55 MCHC 31.4 g/dL (31.6-35.5) L 12/20/18 17:01 Plt Count 103 K/mcL (140-400) L 12/22/18 03:55 Sodium 134 mEq/L (136-145) L 12/22/18 03:55 Potassium 5.2 mEq/L (3.5-5.1) H 12/22/18 03:55 BUN 24 mg/dL (8-23) H 12/23/18 08:22 Est GFR (Non-Af Amer) 57 (> 60) L 12/23/18 08:22 Glucose 183 mg/dL (70-105) H 12/23/18 08:22 POC Glucose 190 mg/dL (70-99) H 12/22/18 20:23
[2018-12-23] MEDS: Ondansetron 4 MG/2 ML VIAL IVP PRN (16:58)
--- NOTE | 2018-12-23 19:30 | Internal Med Progress Note ---
Hospitalist Progress Note - Encounter Date of Encounter: 12/23/18 Time of Encounter: 10:30 - Subjective Interval History: Patient was seen and examined at bedside currently states that he is able to move leg off bed and has sensation above the knee . Pt/OT recommending rehab ECF - social service assistant attempting to set this up - Exam Vitals: Temp Pulse Resp BP Pulse Ox 98.1 F 65 16 95/51 96 12/23/18 19:17 12/23/18 19:17 12/23/18 19:17 12/23/18 19:17 12/23/18 19:17 Exam: PHYSICAL EXAMINATION: GENERAL APPEARANCE: The patient is alert, oriented and in no acute distress. HEENT: Head is normocephalic. The sinuses are nontender. Pupils are equal and reactive. The nares are patent. Oropharynx clear without lesions. NECK: Supple without lymphadenopathy. HEART: Regular rate and rhythm. LUNGS: No crackles or wheezes are heard. ABDOMEN: Soft, nontender, nondistended with good bowel sounds heard. Inguinal area is normal. EXTREMITIES: Without cyanosis, clubbing or edema. NEUROLOGICAL: left leg muscle strength 3/5 with sensory deficit below the knee and diminished DTR. right side normal. SKIN: Warm and dry without any rash. - Assessment and Plan (1) Unable to ambulate Current Visit: Yes Status: Acute Assessment and Plan: 12/20 63-year-old gentleman with history of CVA, chronic back pain status post lumbar spine fusion and laminectomy, who suffered a fall recently, presented with pain in the back and unable to ambulate. He reported that he lost control of bowel and bladder immediately after the event, but he has regained control of both bowel and bladder right now. He also reported left leg weakness and he described that he has to drag the left leg to walk. CT of the lumbar spine showed L5-S1 retrolisthesis and L3-L4 spinal stenosis due to facet arthropathy. Spine surgeon Dr. Vincent was consulted, appreciate help. Pain control. PT/OT consult. 12/21 Neurological status stable, denies loss control of bowel or bladder. Back pain and leg pain controlled. Orthopedics following, appreciate help. 12/22 Orthopedic spine did see the patient today and felt that symptoms did not correlate with findings on CT scan and advised neurology consult Patient was seen and evaluated by neurology today recommending PT OT evaluation concern of possibility of conversion disorder apparently patient did have an extensive workup at [facility] evaluated by neurology and neurosurgery and could not identify any etiology to explain his left lower extremity weakness. LP at [facility] showed mildly elevated protein of 44. Differential at the scene included conversion disorder. 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 LP at [facility] showed mildly elevated protein of 44. Differential at the scene included conversion disorder. 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 (3) History of CVA (cerebrovascular accident) Current Visit: No Status: Chronic Assessment and Plan: continue home medication. (4) Diabetes mellitus Current Visit: No Status: Chronic Assessment and Plan: Insulin sliding scale. Accu-Cheks before meals at bedtime (5) Hypertension Current Visit: No Status: Chronic Assessment and Plan: BP controlled, continue monitoring, continue home medication. (6) Hyperlipemia Current Visit: No Status: Chronic Assessment and Plan: Continue home medication. (7) DVT prophylaxis Current Visit: Yes Status: Acute Assessment and Plan: Heparin subcutaneous. (8) Osteoarthritis of left hip Current Visit: No Status: Chronic Assessment and Plan: Pain control, monitoring. Continue home medications (9) Lumbar back pain with radiculopathy affecting left lower extremity Current Visit: Yes Status: Acute Assessment and Plan: Patient was evaluated by orthospine-who felt that symptoms did not correlate with findings on CT scan and consult neurology - Time Spent with Patient Total time spent is greater than 50% in coordination of care (as documented) at patient's floor/unit and/or counseling patient: Internal Medicine: Result - Labs CBC & Chem 7: 12/22/18 03:55 12/23/18 08:22 Labs: BMP 12/23/18 08:22 Sodium 137 Potassium 4.8 Chloride 104 Carbon Dioxide 28 BUN 24 H Creatinine 1.28 Glucose 183 H Calcium 9.2 Consult Discharge Plan - Plan Referrals: NONE,PCP [Primary Care Provider] - (2) CAD (coronary artery disease) of bypass graft Qualifiers: [place] vs. 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: wi thout senior care use Diabetes mellitus complication status: with kidney com plications Diabetes mellitus complication detail: with chronic kidney disease Chronic kidney disease stage: stage 3 (moderate) Qualified Code(s): E11.22 - Type 2 diabetes mellitus with diabetic chronic kidney disease; N18.3 - Chronic kidney disease, stage 3 (moderate) (5) Hypertension Qualifiers: Hypertension type: essential hypertension Qualified Code(s): I10 - Essential (primary) hypertension (6) Hyperlipemia Qualifiers: Hyperlipidemia type: unspecified Qualified Code(s): E78.5 - Hyperlipidemia, unspecified (8) Osteoarthritis of left hip Qualifiers: Osteoarthritis type: unspecified Qualified Code(s): M16.12 - Unilateral primary osteoarthritis, left hip
[2018-12-23] MEDS: rOPINIRole 1 MG TABLET PO SCH (21:00)
[2018-12-23] MEDS: Gabapentin 300 MG CAPSULE PO SCH (21:01)
[2018-12-23] MEDS: traZODone 50 MG TABLET PO SCH (21:01)
[2018-12-23] MEDS: DiphenhydraMINE CREAM 28.4 GM TUBE TP PRN (21:02)
[2018-12-24 03:26] LABS: Basophils % 0.3 %; Hemoglobin 9.4 g/dL (12.9-16.9); Immature Granulocytes % 0.3 % (0-4); Mean Platelet Volume 10.9 fL (9.4-12.4)
[2018-12-24 03:28] LABS: Eosinophils # 0.2 K/mcL (0.0-0.6); Eosinophils % 4.7 %; Hematocrit 30.3 % (37.5-50.1); Immature Platelets 3.1 % (1.1-6.1); Lymphocytes # 1.4 K/mcL (0.6-4.6); Lymphocytes % 42.4 %; Mean Corpuscular Hemoglobin 28.6 pg (28.0-33.3); Mean Corpuscular Volume 92.1 fL (83.0-100.0); Monocytes # 0.3 K/mcL (0.0-1.3); Monocytes % 8.1 %; Neutrophils # 1.4 K/mcL (1.6-8.9); Red Blood Count 3.29 M/mcL (4.19-5.50); Red Cell Distribution Width 13.2 % (11.5-14.5); Segmented Neutrophils % 44.2 %; White Blood Count 3.2 K/mcL (4.3-11.1)
[2018-12-24 04:02] LABS: Platelet Count 86 K/mcL (140-400)
[2018-12-24] MEDS: *HR* Heparin 5,000 UNIT/ML VIAL SQ SCH (05:37)
[2018-12-24] MEDS: Insulin LISPRO 300 UNITS/3 ML VIAL SQ SCH ×2 (07:59→11:13)
[2018-12-24] MEDS: *HR* OxyCODONE Immed Rel 5 MG TABLET PO PRN (07:59)
[2018-12-24] MEDS: Aspirin 81 MG TAB.CHEW PO SCH (07:59)
[2018-12-24] MEDS: Ondansetron 4 MG/2 ML VIAL IVP PRN (07:59)
[2018-12-24 10:27] LABS: BUN/Creatinine Ratio 19 (6-26); Blood Urea Nitrogen 25 mg/dL (8-23); Calcium 8.9 mg/dL (8.6-10.3); Carbon Dioxide 24 mEq/L (23-29); Chloride 106 mEq/L (98-107); Glucose 161 mg/dL (70-105); Osmolality,Calculated 294 (280-300); Potassium 4.8 mEq/L (3.5-5.1); Sodium 138 mEq/L (136-145); eGFR For African Americans > 60 (> 60); eGFR For Non-African Americans 54 (> 60)
[2018-12-24 10:50] VITALS: BP 118/68
--- NOTE | 2018-12-24 15:03 | Discharge Summary ---
- NOTES TO OUTPATIENT PROVIDER Notes to Outpatient Provider: Will have home health PT and OT and follow up with neurology for EMG for his leg weakness. He will benefit from outpatient psychiatry Date of Encounter: 12/24/18 Time of Encounter: 14:46 - Discharge Diagnosis (1) Unable to ambulate Priority: Primary Status: Acute (2) CAD (coronary artery disease) of bypass graft Priority: Secondary Status: Chronic Qualifiers: [place] vs. transplanted heart: [place] heart Associated angina: angina presence unspecified Qualified Code(s): I25.810 - Atherosclerosis of coronary artery bypass graft(s) without angina pectoris (3) History of CVA (cerebrovascular accident) Priority: Secondary Status: Chronic (4) Diabetes mellitus Priority: Secondary Status: Chronic Qualifiers: Diabetes mellitus type: type 2 Diabetes mellitus mcfp insulin use: without mcfp use Diabetes mellitus complication status: with kidney complications Diabetes mellitus complication detail: with chronic kidney disease Chronic kidney disease stage: stage 3 (moderate) Qualified Code(s): E11.22 - Type 2 diabetes mellitus with diabetic chronic kidney disease; N18.3 - Chronic kidney disease, stage 3 (moderate) (5) Hypertension Priority: Secondary Status: Chronic Qualifiers: Hypertension type: essential hypertension Qualified Code(s): I10 - Essential (primary) hypertension (6) Hyperlipemia Priority: Secondary Status: Chronic Qualifiers: Hyperlipidemia type: unspecified Qualified Code(s): E78.5 - Hyperlipidemia, unspecified (7) Osteoarthritis of left hip Priority: Secondary Status: Chronic Qualifiers: Osteoarthritis type: unspecified Qualified Code(s): M16.12 - Unilateral primary osteoarthritis, left hip (8) Lumbar back pain with radiculopathy affecting left lower extremity Priority: Secondary Status: Acute Hospital course: Mr. Grewal is a 63 year old male past medical history past medical history of cirrhosis CHF coronary disease CVA diabetes for hyponatremia due to myocardial infarction thyroid disease chronic back pain who presented to [facility] with complaints of back pain and weakness status post fall [address] of his head with no acute intracranial abnormality CT spine both lumbar and thoracic which did not identify any acute etiology to explain weakness He has chronic left lower extremity weakness since a left hip surgery a few years ago but it is much weaker since experiencing a fall. He has similar event in August with a fall [employer] prompting an admission at [facility] he was evaluated with neurology and neurosurgery at that time there was some concerns that the patient may have conversion disorder due to no significant pathology is found to explain his clinical symptoms after extensive testing. His left leg weakness tends to fluctuate while he is distracted. He was evaluated by neurology as well as orthospine. Orthospine felt that his symptoms did not correlate with findings on CT. Neurology recommending outpatient follow-up - EMG/MCV study to lower extremities. As well as outpatient PT and OT. I did speak with psychiatry who also recommends outpatient follow-up for possible conversion disorder. PT OT did evaluate the patient and recommended inpatient rehabilitation however patient requested a certain facility they did not have any beds available and he declined. He states he does have a sister who will help take care of him until his returned home on Thursday. He will go home with home health services and follow-up with PCP neurology and psychiatry. Patient verbalizes understanding is ready for discharge. - Time Spent with Patient Total time spent providing and/or coordinating discharge services: - Discharge Medications Prescriptions: Continued Aspirin 81 mg PO DAILY #30 tab.chew Atorvastatin [Lipitor] 40 mg PO HS Ropinirole HCl [Requip] 4 mg PO HS Pantoprazole Sodium 40 mg PO DAILY OxyCODONE Immed Rel [Roxicodone 10 MG] 10 mg PO QID PRN 2 Days #8 tab PRN Reason: Pain Omeprazole [PriLOSEC] 40 mg PO HS Levothyroxine Sodium 75 mcg PO DAILY Trazodone HCl 100 mg PO HS Magnesium Oxide [Mag-Ox] 400 mg PO BID PRN PRN Reason: Constipation Promethazine [Phenergan] 25 mg IM TID PRN PRN Reason: Nausea Metoprolol XL (24 HR) Succ [Toprol Xl] 25 mg PO DAILY PRN PRN Reason: Hypertension Gabapentin [Neurontin] 900 mg PO TID Tizanidine HCl 4 mg PO HS Home Medications: Aspirin 81 mg PO DAILY #30 tab.chew 08/06/16 [Rx] Atorvastatin [Lipitor] 40 mg PO HS 03/17/17 [History] Ropinirole HCl [Requip] 4 mg PO HS 05/01/17 [History] Pantoprazole Sodium 40 mg PO DAILY 01/01/18 [History] OxyCODONE Immed Rel [Roxicodone 10 MG] 10 mg PO QID PRN 2 Days #8 tab 01/06/18 [Rx] Omeprazole [PriLOSEC] 40 mg PO HS 08/05/18 [History] Levothyroxine Sodium 75 mcg PO DAILY 08/06/18 [History] Magnesium Oxide [Mag-Ox] 400 mg PO BID PRN 08/06/18 [History] Metoprolol XL (24 HR) Succ [Toprol Xl] 25 mg PO DAILY PRN 08/06/18 [History] Promethazine [Phenergan] 25 mg IM TID PRN 08/06/18 [History] Trazodone HCl 100 mg PO HS 08/06/18 [History] Gabapentin [Neurontin] 900 mg PO TID 12/20/18 [History] Tizanidine HCl 4 mg PO HS 12/21/18 [History] Allergies/Adverse Reactions: Allergy/AdvReac Type Severity Reaction Status Date / Time codeine Allergy Mild Itching Verified 12/21/18 14:30 Penicillins AdvReac Severe COMA Verified 12/21/18 14:30 nitroglycerin AdvReac Mild See Verified 12/21/18 14:30 Comments NITRATES Allergy Mild "DROPS Uncoded 12/21/18 14:30 BLOOD PRESSURE, PASS OUT" NUBAIN Allergy Mild "VOMITING, Uncoded 12/21/18 14:30 DIARRHEA" Date of admission: 12/20/18 17:51 Primary care physician: PCP NONE Consults: 12/20/18 16:22 Consult to Orthopedic Surgery [CONS] Routine Consulting Provider: [facility] Reason for Consult: back pain and unable to ambulate Call Completed: Yes 12/20/18 16:23 Consult to Physical Therapy [CONS] Routine Comment: Evaluate, develop and implement POC Reason for Consult: dc plan Does patient have active BEDREST order?: No Is patient medically & hemodynamically stable?: Yes Patient assessed for mobility or mobilized this visit?: Yes OT [Consult to Occupational Therapy] [CONS] Routine Comment: Evaluate, develop and implement POC Reason for Consult: dc plan Does patient have active BEDREST order?: No Is patient medically & hemodynamically stable?: Yes Patient assessed for mobility or mobilized this visit?: Yes 12/20/18 21:08 Consult to Animal Sitter [CONS] Routine Reason for SW Consult: Patient would like help filling out POA paperwork and finding resources to help him get hearing aids. 12/22/18 11:32 Consult to Neurology [CONS] Routine Consulting Provider: [facility] Reason for Consult: lower extremity weakness Time Notified: 11:32 Call Completed: Yes Discharging clinician: Lacey Thompson Anticipated date of discharge: 12/24/18 - Constitutional Vitals: Temp Pulse Resp BP Pulse Ox 97.6 F 64 16 118/68 97 12/24/18 10:45 12/24/18 10:45 12/24/18 10:45 12/24/18 10:45 12/24/18 10:45 General appearance: Present: cooperative, A&O X 3, answers questions appropriately Exam: PHYSICAL EXAMINATION: GENERAL APPEARANCE: The patient is alert, oriented and in no acute distress. HEENT: Head is normocephalic. The sinuses are nontender. Pupils are equal and reactive. The nares are patent. Oropharynx clear without lesions. NECK: Supple without lymphadenopathy. HEART: Regular rate and rhythm. LUNGS: No crackles or wheezes are heard. ABDOMEN: Soft, nontender, nondistended with good bowel sounds heard. Inguinal area is normal. EXTREMITIES: Without cyanosis, clubbing or edema. NEUROLOGICAL: left leg muscle strength 3/5 with sensory deficit below the knee and diminished DTR. right side normal. SKIN: Warm and dry without any rash. - Head Head exam: Present: atraumatic, normocephalic - Eye Eye exam: Present: PERRL, conjuntiva pink, sclera anicteric Pupils: Present: PERRL - Neck Neck exam general surgery: Present: supple, trachea midline. Absent: lymphadenopathy - Respiratory Respiratory exam: Present: CTAB. Absent: accessory muscle use, rales, rhonchi, wheezes - Cardiovascular Cardiovascular exam: Present: RRR, +S1, +S2. Absent: diastolic murmur, gallop, rubs, systolic murmur - GI/Abdominal GI/Abdominal exam: Present: normal bowel sounds, soft, no peritoneal signs. Absent: distended, tenderness - Extremities Exam Extremities exam: Present: warm, radial pulses palpable and symmetrical. Absent: calf tenderness, cyanotic, pedal edema - Neurological Exam Neurological exam: Present: CN II-XII intact, oriented X3, no focal deficits. Absent: pronater drift, facial droop, speech deficit Additional comments: Left lower extremity weakness - Skin Skin exam: Present: dry, intact - Patient Status Disposition: Home Health Service Condition: Good Functional capacity at discharge: uses cane/walker Overall status at discharge: patient is not back to baseline - Discharge Instructions Instructions: Weakness (GEN) Follow Up With: Niko Knight MD [Non-Partnered Physician] - (office is closed call for a follow up on Thursday12/27/2018 Also call [facility] at [phone] to schedule a appointment ) - Diet and Activity Activity: as per physical therapy, increase activity as tolerated Diet: advance to your usual diet
--- NOTE | 2018-12-24 15:40 | Physician Discharge Referral ---
Home Health/Hosp Referral Info Transfer to: Home Health Attending Provider: alisha Provider in Charge Post Discharge: PCP - Diagnosis (1) Unable to ambulate Priority: Primary Status: Acute (2) CAD (coronary artery disease) of bypass graft Priority: Secondary Status: Chronic (3) History of CVA (cerebrovascular accident) Priority: Secondary Status: Chronic (4) Diabetes mellitus Priority: Secondary Status: Chronic (5) Hypertension Priority: Secondary Status: Chronic (6) Hyperlipemia Priority: Secondary Status: Chronic (7) Osteoarthritis of left hip Priority: Secondary Status: Chronic (8) Lumbar back pain with radiculopathy affecting left lower extremity Priority: Secondary Status: Acute - Respiratory Orders Smoking Cessation: Smoking cessation has been advised. For more information, call the [place] Tobacco Quit Line at 6-030-CZFN-NOW. - Diet/Nutrition Diet/Nutrition Orders: Regular - Activity Activity Orders: Up ad kristina - Services Needed Following services are medically necessary services: Nursing, Home Health Aide, Physical Therapy, Occupational Therapy - Transfer Medications Home Medications: Aspirin 81 mg PO DAILY #30 tab.chew 08/06/16 [Rx] Atorvastatin [Lipitor] 40 mg PO HS 03/17/17 [History] Ropinirole HCl [Requip] 4 mg PO HS 05/01/17 [History] Pantoprazole Sodium 40 mg PO DAILY 01/01/18 [History] OxyCODONE Immed Rel [Roxicodone 10 MG] 10 mg PO QID PRN 2 Days #8 tab 01/06/18 [Rx] Omeprazole [PriLOSEC] 40 mg PO HS 08/05/18 [History] Levothyroxine Sodium 75 mcg PO DAILY 08/06/18 [History] Magnesium Oxide [Mag-Ox] 400 mg PO BID PRN 08/06/18 [History] Metoprolol XL (24 HR) Succ [Toprol Xl] 25 mg PO DAILY PRN 08/06/18 [History] Promethazine [Phenergan] 25 mg IM TID PRN 08/06/18 [History] Trazodone HCl 100 mg PO HS 08/06/18 [History] Gabapentin [Neurontin] 900 mg PO TID 12/20/18 [History] Tizanidine HCl 4 mg PO HS 12/21/18 [History] Allergies/Adverse Reactions: Allergy/AdvReac Type Severity Reaction Status Date / Time codeine Allergy Mild Itching Verified 12/21/18 14:30 Penicillins AdvReac Severe COMA Verified 12/21/18 14:30 nitroglycerin AdvReac Mild See Verified 12/21/18 14:30 Comments NITRATES Allergy Mild "DROPS Uncoded 12/21/18 14:30 BLOOD PRESSURE, PASS OUT" NUBAIN Allergy Mild "VOMITING, Uncoded 12/21/18 14:30 DIARRHEA" Certification: Further, I certify that my clinical findings support that this patient is homebound (i.e. absences from home require considerable and taxing effort and are for medical reasons or baptism services or infrequently or short duration when for other reasons) because: Homebound Reason: Leaving home requires considerable and taxing effort due to condition Attestation: My signature below is to certify that this patient is under my care and that I, or nurse practitioner, or a physician's orthodontist assistant working with me, has a [id number] encounter with this patient.
== END 2018-12-24 15:34 | disposition home health service (06) | DRG 552 ==
LOC: EMEROOARM 10:58 → 3BNU 10:58
PROVIDERS: ADMIT Internal Medicine Nephrology; ATTEND Internal Medicine Nephrology

== ENCOUNTER 2019-08-27 20:19 | Observation (INO) ==
[2019-08-27] MEDS ORDERED: Aspirin 81 MG TAB.CHEW PO ONE (20:25)
[2019-08-27] MEDS ORDERED: Nitroglycerin 0.4 MG TAB.SUBL SL PRN (20:25)
[2019-08-27] MEDS ORDERED: Morphine Sulfate 2 MG/ML SYRINGE IVP ONE ×2 (20:37→22:45)
[2019-08-27] MEDS ORDERED: Isovue-370 500 ML BOTTLE IVP ONE (20:38)
[2019-08-27] MEDS ORDERED: Ondansetron 4 MG/2 ML VIAL IVP ONE (21:03)
[2019-08-27 21:08] LABS: Basophils % 0.2 %; Hematocrit 35.7 % (37.5-50.1); Hemoglobin 11.2 g/dL (12.9-16.9); Immature Granulocytes % 0.5 % (0-4); Lymphocytes # 0.6 K/mcL (0.6-4.6); Mean Corpuscular HGB Conc 31.4 g/dL (31.6-35.5); Mean Corpuscular Hemoglobin 29.3 pg (28.0-33.3); Mean Corpuscular Volume 93.5 fL (83.0-100.0); Mean Platelet Volume 10.8 fL (9.4-12.4); Monocytes # 0.2 K/mcL (0.0-1.3); Monocytes % 2.7 %; Neutrophils # 5.5 K/mcL (1.6-8.9); Platelet Count 133 K/mcL (140-400); Red Blood Count 3.82 M/mcL (4.19-5.50); Red Cell Distribution Width 14.5 % (11.5-14.5); Segmented Neutrophils % 87.6 %; White Blood Count 6.2 K/mcL (4.3-11.1)
[2019-08-27 21:14] LABS: Prothrombin Time 11.4 Seconds (9.4-12.1)
[2019-08-27 21:16] LABS: Activated Partial Thrombo Time 28.4 Seconds (26.0-36.0)
[2019-08-27] MEDS: 0.9 % Sodium Chloride 1,000 ML IVC SCH (21:30)
[2019-08-27 21:33] LABS: BUN/Creatinine Ratio 28 (6-26); Blood Urea Nitrogen 31 mg/dL (8-23); Calcium 9.1 mg/dL (8.6-10.3); Carbon Dioxide 21 mEq/L (23-29); Chloride 103 mEq/L (98-107); Glucose 292 mg/dL (70-105); Osmolality,Calculated 293 (280-300); Potassium 4.5 mEq/L (3.5-5.1); Sodium 133 mEq/L (136-145); eGFR For African Americans > 60 (> 60); eGFR For Non-African Americans > 60 (> 60)
[2019-08-27 21:35] LABS: Troponin I < 0.03 ng/mL (< 0.04)
[2019-08-28] MEDS ORDERED: Acetaminophen 325 MG TABLET PO PRN (00:51)
[2019-08-28] MEDS ORDERED: Mag Hydrox/Al Hydrox/Simeth 30 ML UDC PO PRN (00:51)
[2019-08-28] MEDS ORDERED: Naloxone 0.4 MG/ML INJ IVP PRN (00:51)
[2019-08-28] MEDS: Morphine Sulfate 2 MG/ML SYRINGE IVP PRN ×4 (01:12→21:15)
[2019-08-28 01:29] LABS: Hematocrit 34.7 % (37.5-50.1); Hemoglobin 11.5 g/dL (12.9-16.9); Immature Granulocytes % 0.7 % (0-4); Lymphocytes % 16.6 %; Mean Corpuscular HGB Conc 33.1 g/dL (31.6-35.5); Mean Corpuscular Hemoglobin 29.5 pg (28.0-33.3); Monocytes # 0.3 K/mcL (0.0-1.3); Monocytes % 5.3 %; Neutrophils # 4.6 K/mcL (1.6-8.9); Platelet Count 126 K/mcL (140-400); Red Cell Distribution Width 14.6 % (11.5-14.5); Segmented Neutrophils % 77.4 %; White Blood Count 5.9 K/mcL (4.3-11.1)
[2019-08-28] MEDS: tiZANidine 4 MG TABLET PO SCH ×2 (01:36→21:14)
[2019-08-28] MEDS: *HR* Promethazine 25 MG/ML VIAL IVP PRN ×2 (01:36→07:41)
[2019-08-28] MEDS: rOPINIRole 1 MG TABLET PO SCH ×2 (01:37→21:14)
[2019-08-28 01:49] LABS: BUN/Creatinine Ratio 29 (6-26); Blood Urea Nitrogen 28 mg/dL (8-23); Carbon Dioxide 23 mEq/L (23-29); Chloride 105 mEq/L (98-107); Chol/HDL Ratio 3.4 (0-4.9); Cholesterol 173 mg/dL (< 200); Glucose 206 mg/dL (70-105); HDL Cholesterol 51 mg/dL (40-59); LDL Cholesterol,Calculated 92 mg/dL (0-99); Magnesium 1.8 mg/dL (1.6-2.6); Osmolality,Calculated 289 (280-300); Potassium 4.9 mEq/L (3.5-5.1); Sodium 134 mEq/L (136-145); Triglycerides 152 mg/dL (< 150); eGFR For African Americans > 60 (> 60); eGFR For Non-African Americans > 60 (> 60)
[2019-08-28] MEDS: 0.9 % Sodium Chloride 1,000 ML IVC SCH ×3 (04:26→21:27)
[2019-08-28] MEDS: *HR* Heparin 5,000 UNIT/ML VIAL SQ SCH ×2 (06:27→16:32)
[2019-08-28] MEDS ORDERED: Regadenoson 0.4 MG/5 ML SYRINGE IVP ONE (07:13)
[2019-08-28] MEDS: Insulin LISPRO 300 UNITS/3 ML VIAL SQ SCH ×3 (07:21→19:04)
[2019-08-28] MEDS ORDERED: Perflutren Lipid Microsphere 1.3 ML in 0.9 % Sodium Chloride 8.7 ML IVP ONE (08:41)
[2019-08-28] MEDS: Gabapentin 300 MG CAPSULE PO SCH ×3 (11:36→21:14)
[2019-08-28] MEDS: Aspirin 81 MG TAB.CHEW PO SCH (11:36)
[2019-08-28] MEDS: Insulin DETEMIR 100 UNIT/ML X5UNITS SQ SCH (21:29)
[2019-08-29] MEDS: *HR* Heparin 5,000 UNIT/ML VIAL SQ SCH ×2 (05:59→17:13)
[2019-08-29] MEDS ORDERED: Magnesium Oxide 400 MG TABLET PO PRN (07:43)
[2019-08-29] MEDS ORDERED: Metoprolol XL (24 HR) Succ 25 MG TAB.ER.24H PO PRN (07:43)
[2019-08-29] MEDS: Insulin LISPRO 300 UNITS/3 ML VIAL SQ SCH ×3 (07:48→17:14)
[2019-08-29] MEDS ORDERED: D5% in Water 1,000 ML IVC PRN (08:17)
[2019-08-29] MEDS ORDERED: Dextrose Gel 15 GM/37.5 ML TUBE PO PRN ×2 (08:17)
[2019-08-29] MEDS ORDERED: *HR* Dextrose 50 % in Water (Syg) 50 ML SYRINGE IVP PRN (08:17)
[2019-08-29] MEDS: Gabapentin 300 MG CAPSULE PO SCH ×3 (08:46→20:57)
[2019-08-29] MEDS: Aspirin 81 MG TAB.CHEW PO SCH (08:46)
[2019-08-29] MEDS: *HR* OxyCODONE Immed Rel 5 MG TABLET PO PRN ×2 (08:47→17:14)
[2019-08-29] MEDS ORDERED: Melatonin 3 MG TABLET PO ONE (20:52)
[2019-08-29] MEDS: Insulin DETEMIR 100 UNIT/ML X5UNITS SQ SCH (20:57)
[2019-08-29] MEDS: traZODone 50 MG TABLET PO SCH (20:57)
[2019-08-29] MEDS: rOPINIRole 1 MG TABLET PO SCH (20:57)
[2019-08-29] MEDS: tiZANidine 4 MG TABLET PO SCH (20:57)
[2019-08-30 02:01] LABS: Red Cell Distribution Width 14.5 % (11.5-14.5)
[2019-08-30 02:03] LABS: Hematocrit 32.4 % (37.5-50.1); Hemoglobin 10.5 g/dL (12.9-16.9); Immature Platelets 3.6 % (1.1-6.1); Mean Corpuscular HGB Conc 32.4 g/dL (31.6-35.5); Mean Corpuscular Hemoglobin 29.5 pg (28.0-33.3); Red Blood Count 3.56 M/mcL (4.19-5.50); White Blood Count 4.5 K/mcL (4.3-11.1)
[2019-08-30 02:22] LABS: BUN/Creatinine Ratio 20 (6-26); Blood Urea Nitrogen 21 mg/dL (8-23); Calcium 8.8 mg/dL (8.6-10.3); Carbon Dioxide 24 mEq/L (23-29); Chloride 105 mEq/L (98-107); Glucose 245 mg/dL (70-105); Osmolality,Calculated 289 (280-300); Potassium 4.6 mEq/L (3.5-5.1); Sodium 134 mEq/L (136-145); eGFR For African Americans > 60 (> 60); eGFR For Non-African Americans > 60 (> 60)
[2019-08-30] MEDS: *HR* Heparin 5,000 UNIT/ML VIAL SQ SCH ×2 (05:34→16:58)
[2019-08-30] MEDS: *HR* OxyCODONE Immed Rel 5 MG TABLET PO PRN ×3 (05:34→20:19)
[2019-08-30] MEDS: Gabapentin 300 MG CAPSULE PO SCH ×3 (08:48→20:19)
[2019-08-30] MEDS: Insulin LISPRO 300 UNITS/3 ML VIAL SQ SCH ×3 (08:48→16:56)
[2019-08-30] MEDS: Aspirin 81 MG TAB.CHEW PO SCH (08:48)
[2019-08-30] MEDS: tiZANidine 4 MG TABLET PO SCH (20:18)
[2019-08-30] MEDS: rOPINIRole 1 MG TABLET PO SCH (20:18)
[2019-08-30] MEDS: Insulin DETEMIR 100 UNIT/ML X5UNITS SQ SCH (20:18)
[2019-08-30] MEDS: traZODone 50 MG TABLET PO SCH (20:19)
[2019-08-31] MEDS: *HR* Heparin 5,000 UNIT/ML VIAL SQ SCH ×2 (05:29→17:44)
[2019-08-31 05:51] LABS: Hemoglobin 10.6 g/dL (12.9-16.9); Red Cell Distribution Width 14.6 % (11.5-14.5)
[2019-08-31 05:53] LABS: Hematocrit 33.2 % (37.5-50.1); Immature Platelets 5.2 % (1.1-6.1); Mean Corpuscular HGB Conc 31.9 g/dL (31.6-35.5); Mean Corpuscular Hemoglobin 29.4 pg (28.0-33.3); Mean Platelet Volume 11.9 fL (9.4-12.4); Red Blood Count 3.61 M/mcL (4.19-5.50); White Blood Count 4.6 K/mcL (4.3-11.1)
[2019-08-31 05:58] LABS: BUN/Creatinine Ratio 20 (6-26); Blood Urea Nitrogen 27 mg/dL (8-23); Carbon Dioxide 26 mEq/L (23-29); Chloride 102 mEq/L (98-107); Glucose 190 mg/dL (70-105); Osmolality,Calculated 290 (280-300); Potassium 4.4 mEq/L (3.5-5.1); Sodium 135 mEq/L (136-145); eGFR For African Americans > 60 (> 60); eGFR For Non-African Americans 53 (> 60)
[2019-08-31] MEDS: Gabapentin 300 MG CAPSULE PO SCH ×3 (07:50→22:22)
[2019-08-31] MEDS: Aspirin 81 MG TAB.CHEW PO SCH (07:50)
[2019-08-31] MEDS: *HR* OxyCODONE Immed Rel 5 MG TABLET PO PRN (07:53)
[2019-08-31] MEDS: Insulin LISPRO 300 UNITS/3 ML VIAL SQ SCH ×3 (07:54→17:35)
[2019-08-31] MEDS ORDERED: 0.9 % Sodium Chloride 1,000 ML IVC SCH (13:30)
[2019-08-31] MEDS: *HR* Promethazine 25 MG/ML VIAL IVP PRN ×2 (14:00→22:39)
[2019-08-31] MEDS ORDERED: Acetaminophen IV 500 MG/50 ML INFUS..BTL IVPB ONE (14:20)
[2019-08-31] MEDS: Insulin DETEMIR 100 UNIT/ML X5UNITS SQ SCH (22:22)
[2019-08-31] MEDS: rOPINIRole 1 MG TABLET PO SCH (22:23)
[2019-08-31] MEDS: traZODone 50 MG TABLET PO SCH (22:24)
[2019-08-31] MEDS: tiZANidine 4 MG TABLET PO SCH (22:24)
[2019-09-01] MEDS: *HR* OxyCODONE Immed Rel 5 MG TABLET PO PRN ×2 (00:52→08:43)
[2019-09-01 02:36] LABS: Hemoglobin 9.7 g/dL (12.9-16.9); Immature Platelets 4.7 % (1.1-6.1); Mean Corpuscular HGB Conc 31.3 g/dL (31.6-35.5); Mean Corpuscular Hemoglobin 29.1 pg (28.0-33.3); Mean Corpuscular Volume 93.1 fL (83.0-100.0); Mean Platelet Volume 11.5 fL (9.4-12.4); Red Blood Count 3.33 M/mcL (4.19-5.50); Red Cell Distribution Width 14.7 % (11.5-14.5); White Blood Count 4.1 K/mcL (4.3-11.1)
[2019-09-01 02:58] LABS: BUN/Creatinine Ratio 24 (6-26); Blood Urea Nitrogen 29 mg/dL (8-23); Calcium 8.4 mg/dL (8.6-10.3); Carbon Dioxide 23 mEq/L (23-29); Chloride 108 mEq/L (98-107); Glucose 190 mg/dL (70-105); Osmolality,Calculated 297 (280-300); Potassium 4.9 mEq/L (3.5-5.1); Sodium 138 mEq/L (136-145); eGFR For African Americans > 60 (> 60); eGFR For Non-African Americans > 60 (> 60)
[2019-09-01] MEDS: *HR* Heparin 5,000 UNIT/ML VIAL SQ SCH (05:46)
[2019-09-01] MEDS: Insulin LISPRO 300 UNITS/3 ML VIAL SQ SCH ×2 (08:35→12:07)
[2019-09-01] MEDS: Gabapentin 300 MG CAPSULE PO SCH (08:35)
[2019-09-01] MEDS: Aspirin 81 MG TAB.CHEW PO SCH (08:35)
[2019-09-01] MEDS: *HR* Promethazine 25 MG/ML VIAL IVP PRN (08:54)
[2019-09-01 11:11] VITALS: BP 134/52
== END 2019-09-01 13:02 | disposition home or self-care (01) ==
LOC: EMEROOARM 20:19 → 3BNU 20:19
PROVIDERS: ADMIT Internal Medicine; ATTEND Internal Medicine

== ENCOUNTER 2020-02-11 17:54 | Inpatient (IN) ==
[2020-02-11] MEDS ORDERED: 0.9 % Sodium Chloride 1,000 ML IVC ONE (18:04)
[2020-02-11] MEDS ORDERED: Isovue-370 500 ML BOTTLE IVP ONE ×4 (18:06→19:30)
[2020-02-11 18:46] LABS: Hematocrit 33.8 % (37.5-50.1); Hemoglobin 9.9 g/dL (12.9-16.9); Immature Granulocytes % 0.5 % (0-4); Mean Corpuscular HGB Conc 29.3 g/dL (31.6-35.5); Mean Corpuscular Hemoglobin 27.7 pg (28.0-33.3); Mean Corpuscular Volume 94.7 fL (83.0-100.0); Red Blood Count 3.57 M/mcL (4.19-5.50)
[2020-02-11 18:48] LABS: Basophils % 0.5 %; Eosinophils # 0.1 K/mcL (0.0-0.6); Eosinophils % 1.9 %; Immature Platelets 4.7 % (1.1-6.1); Lymphocytes # 1.2 K/mcL (0.6-4.6); Lymphocytes % 29.2 %; Mean Platelet Volume 10.2 fL (9.4-12.4); Monocytes # 0.2 K/mcL (0.0-1.3); Monocytes % 5.3 %; Neutrophils # 2.6 K/mcL (1.6-8.9); Red Cell Distribution Width 14.1 % (11.5-14.5); Segmented Neutrophils % 62.6 %; White Blood Count 4.2 K/mcL (4.3-11.1)
[2020-02-11 18:49] LABS: Platelet Count 98 K/mcL (140-400)
[2020-02-11 18:53] LABS: Prothrombin Time 11.7 Seconds (9.4-12.1)
[2020-02-11 18:55] LABS: Activated Partial Thrombo Time 34.4 Seconds (26.0-36.0)
[2020-02-11 19:05] LABS: Alanine Aminotransferase 9 Units/L (7-52); Albumin/Globulin Ratio 1.3 (1.1-2.2); Alkaline Phosphatase 71 Units/L (34-104); Aspartate Amino Transferase 16 Units/L (13-39); BUN/Creatinine Ratio 17 (6-26); Bilirubin,Total 0.3 mg/dL (0.3-1.0); Blood Urea Nitrogen 19 mg/dL (8-23); Calcium 8.8 mg/dL (8.6-10.3); Carbon Dioxide 22 mEq/L (23-29); Chloride 104 mEq/L (98-107); Creatine Kinase 35 Units/L (30-223); Glucose 110 mg/dL (70-105); Osmolality,Calculated 281 (280-300); Potassium 4.4 mEq/L (3.5-5.1); Sodium 134 mEq/L (136-145); Troponin I < 0.03 ng/mL (< 0.04); eGFR For African Americans > 60 (> 60); eGFR For Non-African Americans > 60 (> 60)
[2020-02-11] MEDS ORDERED: Morphine Sulfate 2 MG/ML SYRINGE IVP ONE (19:27)
[2020-02-11] MEDS ORDERED: Ondansetron 4 MG/2 ML VIAL IVP ONE (19:27)
[2020-02-11 20:31] LABS: Bilirubin,Urine Negative (Negative); Blood,Urine Negative (Negative); Clarity,Urine Clear (Clear); Color,Urine Light-Yellow (Yellow); Glucose,Urine (UA) Normal (Normal); Ketones,Urine Negative (Negative); Leukocyte Esterase,Urine Negative (Negative); Nitrite,Urine Negative (Negative); Protein,Urine Negative (Neg-Trace); Specific Gravity,Urine 1.018 (1.010-1.025); Urobilinogen,Urine Normal (Normal)
[2020-02-11] MEDS ORDERED: Naloxone 0.4 MG/ML INJ IVP PRN (21:54)
[2020-02-11] MEDS ORDERED: Ondansetron 4 MG/2 ML VIAL IVP PRN (21:54)
[2020-02-12] MEDS: Promethazine 12.5 MG in 0.9 % Sodium Chloride 50 ML IVPB PRN ×2 (01:09→17:31)
[2020-02-12] MEDS: Morphine Sulfate 2 MG/ML SYRINGE IVP PRN ×3 (03:02→23:17)
[2020-02-12 03:37] LABS: Mean Corpuscular Volume 94.4 fL (83.0-100.0)
[2020-02-12 03:39] LABS: Hematocrit 31.9 % (37.5-50.1); Hemoglobin 9.5 g/dL (12.9-16.9); Immature Platelets 4.1 % (1.1-6.1); Mean Corpuscular HGB Conc 29.8 g/dL (31.6-35.5); Mean Corpuscular Hemoglobin 28.1 pg (28.0-33.3); Red Blood Count 3.38 M/mcL (4.19-5.50); Red Cell Distribution Width 14.4 % (11.5-14.5); White Blood Count 3.6 K/mcL (4.3-11.1)
[2020-02-12 03:58] LABS: BUN/Creatinine Ratio 16 (6-26); Blood Urea Nitrogen 15 mg/dL (8-23); Calcium 8.5 mg/dL (8.6-10.3); Carbon Dioxide 23 mEq/L (23-29); Chloride 108 mEq/L (98-107); Glucose 116 mg/dL (70-105); Magnesium 1.8 mg/dL (1.6-2.6); Osmolality,Calculated 284 (280-300); Phosphorous 2.8 mg/dL (2.7-4.5); Potassium 4.6 mEq/L (3.5-5.1); Sodium 136 mEq/L (136-145); eGFR For African Americans > 60 (> 60); eGFR For Non-African Americans > 60 (> 60)
[2020-02-12 04:32] LABS: Troponin I < 0.03 ng/mL (< 0.04)
[2020-02-12] MEDS ORDERED: D5% in Water 1,000 ML IVC PRN (13:58)
[2020-02-12] MEDS ORDERED: Dextrose Gel 15 GM/37.5 ML TUBE PO PRN ×2 (13:58)
[2020-02-12] MEDS ORDERED: *HR* Dextrose 50 % in Water (Vial) 50 ML VIAL IVP PRN (13:58)
[2020-02-12] MEDS: Gabapentin 300 MG CAPSULE PO SCH ×2 (14:56→20:20)
[2020-02-12] MEDS: tiZANidine 4 MG TABLET PO SCH (17:03)
[2020-02-12] MEDS: Insulin LISPRO 300 UNITS/3 ML VIAL SQ SCH (17:06)
[2020-02-12] MEDS: rOPINIRole 1 MG TABLET PO SCH (20:21)
[2020-02-13] MEDS: Promethazine 12.5 MG in 0.9 % Sodium Chloride 50 ML IVPB PRN ×3 (02:11→20:09)
[2020-02-13] MEDS: Morphine Sulfate 2 MG/ML SYRINGE IVP PRN ×5 (05:53→19:58)
[2020-02-13] MEDS: Insulin LISPRO 300 UNITS/3 ML VIAL SQ SCH ×3 (07:44→17:03)
[2020-02-13] MEDS: Aspirin 81 MG TAB.CHEW PO SCH (08:14)
[2020-02-13] MEDS: Gabapentin 300 MG CAPSULE PO SCH ×3 (08:15→19:57)
[2020-02-13] MEDS ORDERED: Perflutren Lipid Microsphere 1.3 ML in 0.9 % Sodium Chloride 8.7 ML IVP PRN (11:21)
[2020-02-13 13:05] LABS: Hemoglobin 10.2 g/dL (12.9-16.9)
[2020-02-13 13:06] LABS: Hematocrit 33.1 % (37.5-50.1); Immature Platelets 5.1 % (1.1-6.1); Mean Corpuscular HGB Conc 30.8 g/dL (31.6-35.5); Mean Corpuscular Volume 90.9 fL (83.0-100.0); Mean Platelet Volume 11.3 fL (9.4-12.4); Red Blood Count 3.64 M/mcL (4.19-5.50); Red Cell Distribution Width 13.9 % (11.5-14.5); White Blood Count 4.4 K/mcL (4.3-11.1)
[2020-02-13 13:25] LABS: Alanine Aminotransferase 10 Units/L (7-52); Albumin/Globulin Ratio 1.3 (1.1-2.2); Alkaline Phosphatase 69 Units/L (34-104); Aspartate Amino Transferase 17 Units/L (13-39); BUN/Creatinine Ratio 17 (6-26); Bilirubin,Total 0.3 mg/dL (0.3-1.0); Blood Urea Nitrogen 18 mg/dL (8-23); Calcium 9.5 mg/dL (8.6-10.3); Carbon Dioxide 24 mEq/L (23-29); Chloride 104 mEq/L (98-107); Glucose 141 mg/dL (70-105); Osmolality,Calculated 280 (280-300); Sodium 133 mEq/L (136-145); eGFR For African Americans > 60 (> 60); eGFR For Non-African Americans > 60 (> 60)
[2020-02-13] MEDS: tiZANidine 4 MG TABLET PO SCH (16:02)
[2020-02-13] MEDS: rOPINIRole 1 MG TABLET PO SCH (19:57)
[2020-02-14] MEDS: Morphine Sulfate 2 MG/ML SYRINGE IVP PRN ×4 (00:35→23:20)
[2020-02-14] MEDS: Promethazine 12.5 MG in 0.9 % Sodium Chloride 50 ML IVPB PRN ×2 (02:27→12:20)
[2020-02-14 05:55] LABS: Hematocrit 32.5 % (37.5-50.1); Hemoglobin 9.9 g/dL (12.9-16.9); Mean Corpuscular HGB Conc 30.5 g/dL (31.6-35.5); Mean Corpuscular Volume 92.1 fL (83.0-100.0); Mean Platelet Volume 11.4 fL (9.4-12.4); Platelet Count 105 K/mcL (140-400); Red Blood Count 3.53 M/mcL (4.19-5.50); Red Cell Distribution Width 14.1 % (11.5-14.5)
[2020-02-14 06:16] LABS: BUN/Creatinine Ratio 17 (6-26); Blood Urea Nitrogen 18 mg/dL (8-23); Calcium 8.9 mg/dL (8.6-10.3); Carbon Dioxide 23 mEq/L (23-29); Chloride 104 mEq/L (98-107); Glucose 131 mg/dL (70-105); Osmolality,Calculated 284 (280-300); Potassium 4.5 mEq/L (3.5-5.1); Sodium 135 mEq/L (136-145); eGFR For African Americans > 60 (> 60); eGFR For Non-African Americans > 60 (> 60)
[2020-02-14] MEDS: Insulin LISPRO 300 UNITS/3 ML VIAL SQ SCH ×3 (07:32→16:55)
[2020-02-14] MEDS: Aspirin 81 MG TAB.CHEW PO SCH (07:49)
[2020-02-14] MEDS: Gabapentin 300 MG CAPSULE PO SCH ×3 (07:49→20:54)
[2020-02-14] MEDS ORDERED: Clindamycin 900 MG/50 ML 900 MG/50 ML IV.SOLN IVPB ONE (11:00)
[2020-02-14] MEDS ORDERED: 0.9 % Sodium Chloride 500 ML ONE (13:28)
[2020-02-14] MEDS ORDERED: *HR* FentaNYL (PF) 100 MCG/2 ML VIAL ONE (13:28)
[2020-02-14] MEDS ORDERED: *HR* Midazolam HCl 2 MG/2 ML VIAL ONE ×2 (13:28→14:34)
[2020-02-14] MEDS ORDERED: 0.9 % Sodium Chloride 1,000 ML ONE (13:29)
[2020-02-14] MEDS ORDERED: Clindamycin 600 MG/50 ML 1,200 MG/100 ML IV.SOLN IVPB ONE (13:29)
[2020-02-14] MEDS ORDERED: Isovue-300 200 mL Infus..BTL ONE (14:49)
[2020-02-14] MEDS ORDERED: Nitroglycerin 0.4 MG TAB.SUBL SL ONE (16:04)
[2020-02-14] MEDS: tiZANidine 4 MG TABLET PO SCH (17:09)
[2020-02-14] MEDS: rOPINIRole 1 MG TABLET PO SCH (20:54)
[2020-02-15] MEDS: Morphine Sulfate 2 MG/ML SYRINGE IVP PRN (04:29)
[2020-02-15] MEDS: traZODone 50 MG TABLET PO PRN ×2 (04:36→20:46)
[2020-02-15 05:12] LABS: Hematocrit 33.9 % (37.5-50.1); Hemoglobin 10.4 g/dL (12.9-16.9)
[2020-02-15] MEDS: Aspirin 81 MG TAB.CHEW PO SCH (08:08)
[2020-02-15] MEDS: *HR* OxyCODONE Immed Rel 5 MG TABLET PO PRN ×2 (08:09→19:27)
[2020-02-15] MEDS: Gabapentin 300 MG CAPSULE PO SCH ×3 (08:09→20:42)
[2020-02-15] MEDS: Insulin LISPRO 300 UNITS/3 ML VIAL SQ SCH ×3 (08:11→17:20)
[2020-02-15] MEDS: tiZANidine 4 MG TABLET PO SCH (17:30)
[2020-02-15] MEDS: rOPINIRole 1 MG TABLET PO SCH (20:42)
[2020-02-16] MEDS: *HR* OxyCODONE Immed Rel 5 MG TABLET PO PRN ×2 (08:16→17:16)
[2020-02-16] MEDS: Aspirin 81 MG TAB.CHEW PO SCH (08:16)
[2020-02-16] MEDS: Gabapentin 300 MG CAPSULE PO SCH ×3 (08:16→20:24)
[2020-02-16] MEDS: Insulin LISPRO 300 UNITS/3 ML VIAL SQ SCH ×3 (08:17→17:12)
[2020-02-16] MEDS: tiZANidine 4 MG TABLET PO SCH (17:11)
[2020-02-16] MEDS: Metoprolol XL (24 HR) Succ 25 MG TAB.ER.24H PO SCH (17:11)
[2020-02-16] MEDS: rOPINIRole 1 MG TABLET PO SCH (20:23)
[2020-02-16] MEDS: traZODone 50 MG TABLET PO PRN (20:29)
[2020-02-17] MEDS: *HR* OxyCODONE Immed Rel 5 MG TABLET PO PRN (05:37)
[2020-02-17] MEDS: Aspirin 81 MG TAB.CHEW PO SCH (07:58)
[2020-02-17] MEDS: Metoprolol XL (24 HR) Succ 25 MG TAB.ER.24H PO SCH (07:58)
[2020-02-17] MEDS: Gabapentin 300 MG CAPSULE PO SCH (07:58)
[2020-02-17] MEDS: Insulin LISPRO 300 UNITS/3 ML VIAL SQ SCH (08:03)
[2020-02-17 11:10] VITALS: BP 109/69
== END 2020-02-17 11:52 | DRG 244 ==
LOC: EMEROOARM 17:54 → 3BNU 17:54 → SUATTDRO 02-14 13:20
PROVIDERS: ADMIT Family Medicine; ATTEND Student in an Organized Health Care Education/Training Program

== ENCOUNTER 2020-08-29 12:14 | Observation (INO) ==
[2020-08-29 13:41] LABS: Basophils % 0.2 %; Eosinophils % 0.6 %; Hemoglobin 10.7 g/dL (12.9-16.9); Lymphocytes % 8.4 %; Mean Corpuscular Volume 89.5 fL (83.0-100.0)
[2020-08-29 13:43] LABS: Eosinophils # 0.1 K/mcL (0.0-0.6); Hematocrit 35.7 % (37.5-50.1); Immature Granulocytes % 0.7 % (0-4); Immature Platelets 5.5 % (1.1-6.1); Lymphocytes # 0.7 K/mcL (0.6-4.6); Mean Corpuscular Hemoglobin 26.8 pg (28.0-33.3); Mean Platelet Volume 11.4 fL (9.4-12.4); Monocytes # 0.7 K/mcL (0.0-1.3); Monocytes % 7.5 %; Neutrophils # 7.2 K/mcL (1.6-8.9); Red Blood Count 3.99 M/mcL (4.19-5.50); Segmented Neutrophils % 82.6 %; White Blood Count 8.7 K/mcL (4.3-11.1)
[2020-08-29 13:44] LABS: Platelet Count 96 K/mcL (140-400)
[2020-08-29 13:45] LABS: INR 1.2; Prothrombin Time 13.7 Seconds (9.4-12.1)
[2020-08-29] MEDS ORDERED: Aspirin 81 MG TAB.CHEW PO ONE (14:01)
[2020-08-29 14:03] LABS: BUN/Creatinine Ratio 14 (6-26); Blood Urea Nitrogen 19 mg/dL (8-23); Calcium 9.3 mg/dL (8.6-10.3); Carbon Dioxide 27 mEq/L (23-29); Chloride 95 mEq/L (98-107); Glucose 214 mg/dL (70-105); Osmolality,Calculated 279 (280-300); Potassium 4.6 mEq/L (3.5-5.1); Sodium 130 mEq/L (136-145); Troponin I < 0.03 ng/mL (< 0.04); eGFR For African Americans > 60 (> 60); eGFR For Non-African Americans 52 (> 60)
[2020-08-29] MEDS ORDERED: Naloxone 0.4 MG/ML INJ IVP PRN (15:10)
[2020-08-29 15:47] LABS: Alanine Aminotransferase 13 Units/L (7-52); Albumin 4.1 g/dL (3.5-5.7); Albumin/Globulin Ratio 1.2 (1.1-2.2); Alkaline Phosphatase 94 Units/L (34-104); Aspartate Amino Transferase 21 Units/L (13-39); Bilirubin,Direct 0.1 mg/dL (0.0-0.2); Bilirubin,Indirect 0.7 mg/dL (0.0-1.0); Bilirubin,Total 0.8 mg/dL (0.3-1.0); Globulin 3.4 g/dL (2.4-3.5); Magnesium 1.4 mg/dL (1.6-2.6); Phosphorous 2.8 mg/dL (2.7-4.5); Total Protein 7.5 g/dL (6.4-8.9)
[2020-08-29] MEDS ORDERED: *HR* Dextrose 50 % in Water (Vial) 50 ML VIAL IVP PRN (16:23)
[2020-08-29] MEDS ORDERED: Dextrose Gel 15 GM/37.5 ML TUBE PO PRN ×2 (16:23)
[2020-08-29] MEDS ORDERED: D5% in Water 1,000 ML IVC PRN (16:23)
[2020-08-29] MEDS: *HR* OxyCODONE Immed Rel 5 MG TABLET PO PRN (17:05)
[2020-08-29] MEDS: 0.9 % Sodium Chloride 1,000 ML IVC SCH (17:05)
[2020-08-29] MEDS: Insulin LISPRO 300 UNITS/3 ML VIAL SUBQ SCH (17:05)
[2020-08-29 17:40] LABS: Estimated Average Glucose 200 mg/dl; Hemoglobin A1C 8.6 %
[2020-08-29] MEDS: Insulin DETEMIR 100 UNIT/ML X5UNITS SUBQ SCH (19:46)
[2020-08-29] MEDS: *HR* Heparin 5,000 UNIT/ML VIAL SQ SCH (20:30)
[2020-08-30] MEDS: 0.9 % Sodium Chloride 1,000 ML IVC SCH ×3 (00:48→19:11)
[2020-08-30] MEDS: *HR* OxyCODONE Immed Rel 5 MG TABLET PO PRN ×3 (05:58→23:10)
[2020-08-30] MEDS: *HR* Heparin 5,000 UNIT/ML VIAL SQ SCH ×3 (05:58→19:20)
[2020-08-30 07:13] LABS: Basophils % 0.1 %; Immature Granulocytes % 0.4 % (0-4); Mean Corpuscular HGB Conc 29.9 g/dL (31.6-35.5); Red Cell Distribution Width 14.2 % (11.5-14.5)
[2020-08-30 07:15] LABS: Eosinophils # 0.1 K/mcL (0.0-0.6); Eosinophils % 1.3 %; Hematocrit 33.4 % (37.5-50.1); Immature Platelets 5.5 % (1.1-6.1); Lymphocytes % 13.8 %; Mean Corpuscular Hemoglobin 26.6 pg (28.0-33.3); Mean Corpuscular Volume 88.8 fL (83.0-100.0); Mean Platelet Volume 10.8 fL (9.4-12.4); Monocytes # 0.4 K/mcL (0.0-1.3); Monocytes % 5.9 %; Neutrophils # 5.5 K/mcL (1.6-8.9); Red Blood Count 3.76 M/mcL (4.19-5.50); Segmented Neutrophils % 78.5 %
[2020-08-30 07:18] LABS: Platelet Count 82 K/mcL (140-400)
[2020-08-30 07:35] LABS: BUN/Creatinine Ratio 15 (6-26); Blood Urea Nitrogen 17 mg/dL (8-23); Calcium 8.7 mg/dL (8.6-10.3); Carbon Dioxide 27 mEq/L (23-29); Chloride 99 mEq/L (98-107); Glucose 174 mg/dL (70-105); Osmolality,Calculated 282 (280-300); Potassium 4.2 mEq/L (3.5-5.1); Sodium 133 mEq/L (136-145); eGFR For African Americans > 60 (> 60); eGFR For Non-African Americans > 60 (> 60)
[2020-08-30] MEDS: Insulin LISPRO 300 UNITS/3 ML VIAL SUBQ SCH ×3 (08:29→17:19)
[2020-08-30] MEDS: Ondansetron 4 MG/2 ML VIAL IVP PRN ×2 (08:34→19:21)
[2020-08-30] MEDS ORDERED: Magnesium Sulfate 1 GM/102 ML PIGGYBACK IVPB ONE ×2 (08:45→15:55)
[2020-08-30] MEDS ORDERED: Ondansetron 4 MG/2 ML VIAL IVP ONE (14:06)
[2020-08-30] MEDS ORDERED: *HR* LORazepam 0.5 MG TABLET PO PRN (15:46)
[2020-08-30] MEDS: Gabapentin 300 MG CAPSULE PO SCH (19:20)
[2020-08-30] MEDS: Sennosides 8.6 MG TABLET PO SCH (19:20)
[2020-08-30] MEDS: Insulin DETEMIR 100 UNIT/ML X5UNITS SUBQ SCH (20:29)
[2020-08-30] MEDS ORDERED: rOPINIRole 1 MG, rOPINIRole 3 MG PO SCH (21:00)
[2020-08-30] MEDS ORDERED: NON-FORMULARY MEDICATION 1 EACH EACH (Ropinirole Hcl [Requip] 4 MG) PO SCH (21:00)
[2020-08-31] MEDS: Ondansetron 4 MG/2 ML VIAL IVP PRN ×2 (03:38→16:43)
[2020-08-31] MEDS: 0.9 % Sodium Chloride 1,000 ML IVC SCH ×2 (03:38→16:42)
[2020-08-31] MEDS: *HR* Heparin 5,000 UNIT/ML VIAL SQ SCH ×2 (05:45→12:34)
[2020-08-31] MEDS: *HR* OxyCODONE Immed Rel 5 MG TABLET PO PRN ×2 (05:51→16:43)
[2020-08-31 07:22] LABS: Basophils % 0.2 %; Hemoglobin 10.5 g/dL (12.9-16.9); Immature Granulocytes % 0.5 % (0-4); Mean Corpuscular Hemoglobin 27.6 pg (28.0-33.3); Mean Corpuscular Volume 89.5 fL (83.0-100.0); Red Cell Distribution Width 14.3 % (11.5-14.5)
[2020-08-31 07:24] LABS: Eosinophils # 0.1 K/mcL (0.0-0.6); Eosinophils % 1.2 %; Hematocrit 34.1 % (37.5-50.1); Immature Platelets 5.4 % (1.1-6.1); Lymphocytes % 17.4 %; Mean Corpuscular HGB Conc 30.8 g/dL (31.6-35.5); Mean Platelet Volume 11.4 fL (9.4-12.4); Monocytes # 0.3 K/mcL (0.0-1.3); Monocytes % 4.8 %; Platelet Count 100 K/mcL (140-400); Red Blood Count 3.81 M/mcL (4.19-5.50); Segmented Neutrophils % 75.9 %; White Blood Count 5.9 K/mcL (4.3-11.1)
[2020-08-31] MEDS: Insulin LISPRO 300 UNITS/3 ML VIAL SUBQ SCH ×3 (07:24→16:44)
[2020-08-31 07:39] LABS: BUN/Creatinine Ratio 13 (6-26); Blood Urea Nitrogen 12 mg/dL (8-23); Calcium 9.5 mg/dL (8.6-10.3); Carbon Dioxide 26 mEq/L (23-29); Chloride 100 mEq/L (98-107); Glucose 121 mg/dL (70-105); Magnesium 1.8 mg/dL (1.6-2.6); Osmolality,Calculated 277 (280-300); Potassium 4.3 mEq/L (3.5-5.1); Sodium 133 mEq/L (136-145); eGFR For African Americans > 60 (> 60); eGFR For Non-African Americans > 60 (> 60)
[2020-08-31 07:45] LABS: Neutrophils # 4.5 K/mcL (1.6-8.9)
[2020-08-31] MEDS: Sennosides 8.6 MG TABLET PO SCH (07:46)
[2020-08-31] MEDS: Gabapentin 300 MG CAPSULE PO SCH (07:47)
[2020-08-31] MEDS ORDERED: Aspirin 81 MG TAB.CHEW PO SCH (09:00)
[2020-08-31] MEDS ORDERED: NON-FORMULARY MEDICATION 1 EACH EACH (Pantoprazole Sodium [Protonix] 40 MG) PO SCH (09:00)
[2020-08-31 15:15] VITALS: BP 151/76
== END 2020-08-31 17:39 | disposition hospice, home (50) ==
LOC: EMEROOARM 12:14 → 3BNU 12:14 → SUATTDRO 14:46 → 3BNU 15:25
PROVIDERS: ADMIT Internal Medicine; ATTEND Nurse Practitioner

== ENCOUNTER 2020-12-02 13:51 | Observation (INO) ==
[2020-12-02] MEDS ORDERED: *HR* FentaNYL (PF) 100 MCG/2 ML VIAL IVP ONE (14:00)
[2020-12-02 14:32] LABS: Red Blood Count 4.14 M/mcL (4.19-5.50); Red Cell Distribution Width 13.8 % (11.5-14.5)
[2020-12-02 14:34] LABS: Basophils % 0.2 %; Eosinophils # 0.1 K/mcL (0.0-0.6); Eosinophils % 2.4 %; Hematocrit 38.1 % (37.5-50.1); Hemoglobin 11.5 g/dL (12.9-16.9); Immature Granulocytes % 0.7 % (0-4); Immature Platelets 4.3 % (1.1-6.1); Lymphocytes # 1.3 K/mcL (0.6-4.6); Lymphocytes % 23.6 %; Mean Corpuscular HGB Conc 30.2 g/dL (31.6-35.5); Mean Corpuscular Hemoglobin 27.8 pg (28.0-33.3); Mean Platelet Volume 10.7 fL (9.4-12.4); Monocytes # 0.4 K/mcL (0.0-1.3); Monocytes % 6.4 %; Neutrophils # 3.7 K/mcL (1.6-8.9); Platelet Count 121 K/mcL (140-400); Segmented Neutrophils % 66.7 %; White Blood Count 5.5 K/mcL (4.3-11.1)
[2020-12-02 14:48] LABS: BUN/Creatinine Ratio 12 (6-26); Blood Urea Nitrogen 13 mg/dL (8-23); Calcium 9.1 mg/dL (8.6-10.3); Carbon Dioxide 26 mEq/L (23-29); Chloride 97 mEq/L (98-107); Glucose 199 mg/dL (70-105); Osmolality,Calculated 284 (280-300); Potassium 3.5 mEq/L (3.5-5.1); Sodium 134 mEq/L (136-145); eGFR For African Americans > 60 (> 60); eGFR For Non-African Americans > 60 (> 60)
[2020-12-02 14:49] LABS: Troponin I < 0.03 ng/mL (< 0.04)
[2020-12-02 15:50] LABS: Bacteria,Urine Few per hpf (None-Few); Bilirubin,Urine Negative (Negative); Blood,Urine Small (Negative); Clarity,Urine Clear (Clear); Color,Urine Yellow (Yellow); Glucose,Urine (UA) Normal (Normal); Ketones,Urine Negative (Negative); Leukocyte Esterase,Urine Trace (Negative); Mucus,Urine Few per lpf (None-Few); Nitrite,Urine Negative (Negative); Protein,Urine Trace mg/dL (Neg-Trace); RBC,Urine 15-30 per hpf (0-3); Specific Gravity,Urine 1.021 (1.010-1.025)
[2020-12-02] MEDS ORDERED: Morphine Sulfate 2 MG/ML SYRINGE IVP PRN (16:38)
[2020-12-02] MEDS ORDERED: Aspirin 325 MG TABLET PO ONE (16:38)
[2020-12-02] MEDS ORDERED: Nitroglycerin 0.4 MG TAB.SUBL SL PRN (16:38)
[2020-12-02] MEDS ORDERED: Naloxone 0.4 MG/ML INJ IVP PRN (16:52)
[2020-12-02] MEDS ORDERED: Acetaminophen 325 MG TABLET PO PRN (16:52)
[2020-12-02] MEDS ORDERED: *HR* Dextrose 50 % in Water (Vial) 50 ML VIAL IVP PRN (17:41)
[2020-12-02] MEDS ORDERED: Dextrose Gel 15 GM/37.5 ML TUBE PO PRN ×2 (17:41)
[2020-12-02] MEDS ORDERED: D5% in Water 1,000 ML IVC PRN (17:41)
[2020-12-02] MEDS: *HR* Heparin 5,000 UNIT/ML VIAL SQ SCH (18:25)
[2020-12-02] MEDS: Insulin LISPRO 300 UNITS/3 ML VIAL SUBQ SCH (20:20)
[2020-12-03 02:20] LABS: Basophils % 0.4 %; Eosinophils # 0.1 K/mcL (0.0-0.6); Hematocrit 33.9 % (37.5-50.1); Hemoglobin 10.1 g/dL (12.9-16.9); Immature Granulocytes % 0.9 % (0-4); Lymphocytes # 1.7 K/mcL (0.6-4.6); Lymphocytes % 35.9 %; Mean Corpuscular HGB Conc 29.8 g/dL (31.6-35.5); Mean Corpuscular Hemoglobin 27.5 pg (28.0-33.3); Mean Corpuscular Volume 92.4 fL (83.0-100.0); Mean Platelet Volume 10.8 fL (9.4-12.4); Monocytes # 0.4 K/mcL (0.0-1.3); Monocytes % 7.8 %; Neutrophils # 2.4 K/mcL (1.6-8.9); Platelet Count 103 K/mcL (140-400); Red Blood Count 3.67 M/mcL (4.19-5.50); Red Cell Distribution Width 13.7 % (11.5-14.5); White Blood Count 4.6 K/mcL (4.3-11.1)
[2020-12-03 02:28] LABS: INR 1.2; Prothrombin Time 13.4 Seconds (9.4-12.1)
[2020-12-03 03:05] LABS: Alanine Aminotransferase 16 Units/L (7-52); Albumin 3.5 g/dL (3.5-5.7); Albumin/Globulin Ratio 1.1 (1.1-2.2); Alkaline Phosphatase 83 Units/L (34-104); Aspartate Amino Transferase 19 Units/L (13-39); BUN/Creatinine Ratio 14 (6-26); Bilirubin,Total 0.4 mg/dL (0.3-1.0); Blood Urea Nitrogen 17 mg/dL (8-23); Calcium 8.7 mg/dL (8.6-10.3); Carbon Dioxide 25 mEq/L (23-29); Chloride 100 mEq/L (98-107); Globulin 3.1 g/dL (2.4-3.5); Glucose 164 mg/dL (70-105); Magnesium 1.6 mg/dL (1.6-2.6); Osmolality,Calculated 279 (280-300); Potassium 4.5 mEq/L (3.5-5.1); Sodium 132 mEq/L (136-145); Total Protein 6.6 g/dL (6.4-8.9); eGFR For African Americans > 60 (> 60); eGFR For Non-African Americans 59 (> 60)
[2020-12-03] MEDS: *HR* Heparin 5,000 UNIT/ML VIAL SQ SCH ×2 (04:35→18:14)
[2020-12-03] MEDS ORDERED: Morphine Sulfate 2 MG/ML SYRINGE IVP ONE (06:15)
[2020-12-03] MEDS ORDERED: Regadenoson 0.4 MG/5 ML SYRINGE IVP ONE (06:26)
[2020-12-03] MEDS: Insulin LISPRO 300 UNITS/3 ML VIAL SUBQ SCH ×4 (09:34→20:56)
[2020-12-03] MEDS: Ondansetron 4 MG/2 ML VIAL IVP PRN ×2 (13:25→19:55)
[2020-12-03] MEDS ORDERED: *HR* LORazepam 0.5 MG TABLET PO PRN (15:06)
[2020-12-03] MEDS: rOPINIRole 1 MG TABLET PO SCH (19:52)
[2020-12-03] MEDS: Melatonin 3 MG TABLET PO SCH (19:52)
[2020-12-04] MEDS: *HR* Heparin 5,000 UNIT/ML VIAL SQ SCH ×2 (05:24→18:17)
[2020-12-04] MEDS ORDERED: Ketorolac 15 MG/ML VIAL IVP ONE (05:44)
[2020-12-04 06:06] LABS: Hemoglobin 10.7 g/dL (12.9-16.9); Mean Corpuscular HGB Conc 30.6 g/dL (31.6-35.5); Mean Corpuscular Hemoglobin 27.9 pg (28.0-33.3); Mean Corpuscular Volume 91.1 fL (83.0-100.0); Mean Platelet Volume 11.4 fL (9.4-12.4); Platelet Count 110 K/mcL (140-400); Red Blood Count 3.84 M/mcL (4.19-5.50); Red Cell Distribution Width 13.8 % (11.5-14.5); White Blood Count 4.4 K/mcL (4.3-11.1)
[2020-12-04 06:41] LABS: BUN/Creatinine Ratio 19 (6-26); Blood Urea Nitrogen 20 mg/dL (8-23); Calcium 9.3 mg/dL (8.6-10.3); Carbon Dioxide 25 mEq/L (23-29); Chloride 99 mEq/L (98-107); Glucose 130 mg/dL (70-105); Osmolality,Calculated 280 (280-300); Potassium 4.7 mEq/L (3.5-5.1); Sodium 133 mEq/L (136-145); Troponin I < 0.03 ng/mL (< 0.04); eGFR For African Americans > 60 (> 60); eGFR For Non-African Americans > 60 (> 60)
[2020-12-04] MEDS: Insulin LISPRO 300 UNITS/3 ML VIAL SUBQ SCH ×4 (07:19→19:58)
[2020-12-04] MEDS ORDERED: Sennosides/Docusate Sodium TABLET PO PRN (08:09)
[2020-12-04] MEDS: Ondansetron 4 MG/2 ML VIAL IVP PRN ×2 (09:03→18:17)
[2020-12-04] MEDS: Aspirin 81 MG TAB.CHEW PO SCH (09:03)
[2020-12-04] MEDS: rOPINIRole 1 MG TABLET PO SCH (20:05)
[2020-12-04] MEDS: Melatonin 3 MG TABLET PO SCH (20:05)
[2020-12-04] MEDS: *HR* Methadone 5 MG TABLET PO SCH ×2 (20:05→21:42)
[2020-12-05] MEDS: *HR* Heparin 5,000 UNIT/ML VIAL SQ SCH ×2 (04:08→16:49)
[2020-12-05] MEDS: Ondansetron 4 MG/2 ML VIAL IVP PRN ×3 (04:08→16:49)
[2020-12-05 06:35] LABS: Hematocrit 33.5 % (37.5-50.1); Hemoglobin 10.2 g/dL (12.9-16.9); Immature Platelets 5.7 % (1.1-6.1); Mean Corpuscular HGB Conc 30.4 g/dL (31.6-35.5); Mean Corpuscular Hemoglobin 27.6 pg (28.0-33.3); Mean Corpuscular Volume 90.5 fL (83.0-100.0); Red Blood Count 3.7 M/mcL (4.19-5.50); Red Cell Distribution Width 13.7 % (11.5-14.5); White Blood Count 3.8 K/mcL (4.3-11.1)
[2020-12-05 06:56] LABS: BUN/Creatinine Ratio 20 (6-26); Blood Urea Nitrogen 25 mg/dL (8-23); Calcium 9.4 mg/dL (8.6-10.3); Carbon Dioxide 29 mEq/L (23-29); Chloride 100 mEq/L (98-107); Glucose 126 mg/dL (70-105); Osmolality,Calculated 284 (280-300); Potassium 4.7 mEq/L (3.5-5.1); Sodium 134 mEq/L (136-145); eGFR For African Americans > 60 (> 60); eGFR For Non-African Americans 59 (> 60)
[2020-12-05] MEDS: Insulin LISPRO 300 UNITS/3 ML VIAL SUBQ SCH ×4 (07:53→20:41)
[2020-12-05] MEDS: *HR* Methadone 5 MG TABLET PO SCH ×4 (07:57→20:39)
[2020-12-05] MEDS: Aspirin 81 MG TAB.CHEW PO SCH (07:57)
[2020-12-05] MEDS: rOPINIRole 1 MG TABLET PO SCH (20:37)
[2020-12-05] MEDS: Melatonin 3 MG TABLET PO SCH (20:38)
[2020-12-06] MEDS: Ondansetron 4 MG/2 ML VIAL IVP PRN ×3 (02:28→16:40)
[2020-12-06] MEDS: *HR* Heparin 5,000 UNIT/ML VIAL SQ SCH ×2 (06:35→16:40)
[2020-12-06 08:07] LABS: BUN/Creatinine Ratio 21 (6-26); Blood Urea Nitrogen 25 mg/dL (8-23); Calcium 9.3 mg/dL (8.6-10.3); Carbon Dioxide 27 mEq/L (23-29); Chloride 99 mEq/L (98-107); Glucose 104 mg/dL (70-105); Osmolality,Calculated 281 (280-300); Potassium 4.8 mEq/L (3.5-5.1); Sodium 133 mEq/L (136-145); eGFR For African Americans > 60 (> 60); eGFR For Non-African Americans > 60 (> 60)
[2020-12-06 08:12] LABS: Hematocrit 33.8 % (37.5-50.1); Hemoglobin 10.4 g/dL (12.9-16.9); Mean Corpuscular HGB Conc 30.8 g/dL (31.6-35.5); Mean Corpuscular Hemoglobin 27.4 pg (28.0-33.3); Mean Corpuscular Volume 89.2 fL (83.0-100.0); Mean Platelet Volume 11.4 fL (9.4-12.4); Platelet Count 130 K/mcL (140-400); Red Blood Count 3.79 M/mcL (4.19-5.50); Red Cell Distribution Width 13.6 % (11.5-14.5); White Blood Count 4.6 K/mcL (4.3-11.1)
[2020-12-06] MEDS: Aspirin 81 MG TAB.CHEW PO SCH (08:13)
[2020-12-06] MEDS: *HR* Methadone 5 MG TABLET PO SCH ×4 (08:13→21:53)
[2020-12-06] MEDS: Insulin LISPRO 300 UNITS/3 ML VIAL SUBQ SCH ×4 (08:17→21:57)
[2020-12-06] MEDS: rOPINIRole 1 MG TABLET PO SCH (21:55)
[2020-12-06] MEDS: Melatonin 3 MG TABLET PO SCH (21:55)
[2020-12-07] MEDS: *HR* Heparin 5,000 UNIT/ML VIAL SQ SCH ×2 (04:28→18:16)
[2020-12-07] MEDS: *HR* Methadone 5 MG TABLET PO SCH ×4 (08:39→20:52)
[2020-12-07] MEDS: Ondansetron 4 MG/2 ML VIAL IVP PRN ×2 (08:39→18:35)
[2020-12-07] MEDS: Aspirin 81 MG TAB.CHEW PO SCH (08:40)
[2020-12-07] MEDS: Insulin LISPRO 300 UNITS/3 ML VIAL SUBQ SCH ×4 (08:40→21:02)
[2020-12-07 19:28] LABS: Adenovirus Not Detected (Not Detect); Bordetella Pertussis Not Detected (Not Detect); Chlamydophila pneumoniae Not Detected (Not Detect); Coronavirus 229E Not Detected (Not Detect); Coronavirus HKU1 Not Detected (Not Detect); Coronavirus NL63 Not Detected (Not Detect); Coronavirus OC43 Not Detected (Not Detect); Human Metapneumovirus Not Detected (Not Detect); Human Rhinovirus/Enterovirus Not Detected (Not Detect); Influenza A Subtype 2009 H1 Not Detected (Not Detect); Influenza B Not Detected (Not Detect); Mycoplasma pneumoniae Not Detected (Not Detect); Parainfluenza Virus 1 Not Detected (Not Detect); Parainfluenza Virus 2 Not Detected (Not Detect); Parainfluenza Virus 3 Not Detected (Not Detect); Parainfluenza Virus 4 Not Detected (Not Detect); Respiratory Syncytial Virus Not Detected (Not Detect); SARS-CoV-2 Not Detected (Not Detect)
[2020-12-07] MEDS: rOPINIRole 1 MG TABLET PO SCH (20:52)
[2020-12-07] MEDS: Melatonin 3 MG TABLET PO SCH (20:53)
[2020-12-07 22:53] VITALS: BP 127/72
== END 2020-12-07 23:45 ==
LOC: 3BNU 13:51 → EMEROOARM 13:51 → SUATTDRO 16:33 → 3BNU 17:45
PROVIDERS: ADMIT Family Medicine; ATTEND Family Medicine